=== PATIENT | female | born 1955 | race African-American/Black ===

== ENCOUNTER 2016-10-09 19:13 | Inpatient (IN) | payer OTHER ==
[~2016-10-09] VITALS: Ht 167.6 cm; Wt 128.9 kg
[~2016-10-09 19:13] MED LIST: AMLO10TA2 PO; AMLO5TAB2 PO; ATOR40TA59 PO; BENZ100C PO; CARV25TA PO; CARV25TA2 PO; CEFP200T PO; CLON0.2T PO; DOXY100T PO; FURO40TA4 PO; FURO80TA3 PO; GLIP10TA13 PO; HYDR-2869 PO; HYDR-971 PO; INSU100I13 SQ; INSU100I17 SQ; LEVO750T31 PO; LISI-334 PO; LISI40TA PO; METF-620 PO; METF100010 PO; METH-37 PO; OMEP40CA5 PO; OXYC-250 PO; PRED20TA PO; VENTOLIN HFA18 GM IH
[2016-10-09] MEDS ORDERED: FUROSEMIDE 40 MG/4 ML VIAL. IVP ONE (19:30)
[2016-10-09 19:36] LABS: BASO # 0.1 x10^3/uL (0.0-0.2); BASO % 1 % (0-3); EOS % 4 % (0-3); HEMATOCRIT 27.9 % (36.0-47.0); HEMOGLOBIN 9.2 g/dL (12.0-15.5); LYMPH # 1.1 x10^3/uL (1.0-4.8); LYMPH % 9 % (24-48); MEAN CORPUSCULAR HEMOGLOBIN 28 pg (25-35); MEAN CORPUSCULAR HGB CONC 33 g/dL (31-37); MEAN CORPUSCULAR VOLUME 86 fL (79-100); MONO % 7 % (0-9); NEUT % 80 % (31-73); PLATELET COUNT 327 x10^3/uL (140-400); RED BLOOD COUNT 3.23 x10^6/uL (3.50-5.40); RED CELL DISTRIBUTION WIDTH 17.7 % (11.5-14.5); WHITE BLOOD COUNT 12.2 x10^3/uL (4.0-11.0)
[2016-10-09] MEDS ORDERED: fentaNYL PF VIAL 100 MCG/2 ML VIAL IV PRN (19:45)
[2016-10-09 19:48] LABS: CALCIUM 9.2 mg/dL (8.5-10.1); CREATININE 1.8 mg/dL (0.6-1.0); POTASSIUM 4.1 mmol/L (3.5-5.1)
[2016-10-09 19:54] LABS: ALBUMIN 3.1 g/dL (3.4-5.0); ALBUMIN/GLOBULIN RATIO 0.6 (1.0-1.7); TOTAL BILIRUBIN 0.3 mg/dL (0.2-1.0); TOTAL PROTEIN 7.9 g/dL (6.4-8.2)
[2016-10-09] MEDS ORDERED: NITROGLYCERIN SUBLINGUAL 0.4 MG BOTTLE OF 25. SL PRN (20:00)
[2016-10-09 20:03] LABS: CKMB MASS 1.4 ng/mL (0.0-3.6)
[2016-10-09 20:36] LABS: BASE EXCESS COOX 4 mmol/L (-3-3); CARBON MONOXIDE 2.1 % (0.0-1.9); HCO3 COOX 30 mmol/L (21-28); METHEMOGLOBIN 0.2 % (0.0-1.9); OXYHEMOGLOBIN 90.3 %; PCO2 COOX 49 mmHg (35-46); PO2 COOX 67 mmHg (75-108); SAT O2 COOX 92 % (92-99); TOTAL HEMOGLOBIN 10.3 g/dL
[2016-10-09 20:38] LABS: FIO2 COOX 35
[2016-10-09] MEDS ORDERED: IPRATRPIUM/ALBUTEROL 0.5/2.5MG 3 ML NEBU. ONE (20:42)
[2016-10-09] MEDS ORDERED: IPRATRPIUM/ALBUTEROL 0.5/2.5MG 3 ML NEBU. NEB ONE (20:45)
[2016-10-09] MEDS ORDERED: methylPREDNISolone SOD SUCC PF 40 MG/ML VIAL. IV ONE (20:45)
[2016-10-09] MEDS ORDERED: METOPROLOL TARTRATE 5 MG/5 ML VIAL. IVP ONE (20:45)
--- NOTE | 2016-10-09 20:49 | PHYS DOC ---
Past Medical History Past Medical History: CHF, COPD, Diabetes-Type II, Hypertension Additional Past Medical Histor: insomnia Past Surgical History: Tonsillectomy, Other Additional Past Surgical Histo: R ARM FX, R LEG FX Additional Information: 0.5 ppd Alcohol Use: None Drug Use: None Adult General Chief Complaint Chief Complaint: SHORTNESS OF BREATH HPI HPI Patient is a 60 year old female brought from home by EMS with the complaint of shortness of air. The patient is really not able to contribute to history. EMS state that family members said that the patient has been retaining fluid. They believe she has a history of CHF. They state she has a "rescue inhaler", albuterol. Patient on initial evaluation was not really able to contribute to the history due to her dyspnea. PCP the patient does not recall the name, her doctor is new. She used to have but does not anymore. Review of Systems Review of Systems Review of systems was not able to be obtained because of the patient's clinical condition Current Medications Current Medications Current Medications Medications (Trade) Dose Ordered Sig/Rob Start Time Stop Time Status Last Admin Dose Admin Albuterol/ Ipratropium (Duoneb) 3 ml STK-MED ONCE 10/09/16 20:42 10/09/16 20:43 DC Fentanyl Citrate (Fentanyl 2ml Vial) 25 mcg PRN Q15MIN PRN 10/09/16 19:45 10/10/16 19:44 10/09/16 19:41 25 MCG Furosemide (Lasix) 40 mg 1X ONCE 10/09/16 19:30 10/09/16 19:31 DC 10/09/16 19:40 40 MG Methylprednisolone Sodium Succinate (SOLU-Medrol 40MG VIAL) 40 mg 1X ONCE 10/09/16 20:45 10/09/16 20:46 DC 10/09/16 20:57 40 MG Metoprolol Tartrate (Lopressor) 5 mg 1X ONCE 10/09/16 20:45 10/09/16 20:46 DC 10/09/16 21:00 5 MG Nitroglycerin (Nitrostat) 0.4 mg PRN Q5MIN PRN 10/09/16 20:00 10/09/16 20:03 0.4 MG Allergies Allergies Allergies Coded Allergies Type Severity Reaction Last Updated Verified No Known Drug Allergies 06/10/14 No Physical Exam Physical Exam Constitutional: Obese female, oxygen by face mask from EMS, dyspneic, answering one or 2 words, she is alert. HENT: Normocephalic, atraumatic, bilateral external ears normal, nose normal. [ ] Eyes: conjunctiva normal, no discharge. [] Neck: Normal range of motion, no stridor. JVD present. Cardiovascular:Heart rate regular rhythm, no murmur [] Lungs & Thorax: Decreased breath sounds throughout, poor inspiratory effort, no significant wheezing or rales heard Abdomen: Obese, no masses, no pulsatile mass, no bruit. Soft. Tenderness to palpation across the upper abdomen. Skin: Warm, dry, no erythema, no rash. [] Extremities: No tenderness, no cyanosis, no clubbing, ROM intact, no significant pitting edema Neurologic: Alert but not verbal due to dyspnea, normal motor function, normal sensory function, no focal deficits noted. [] Current Patient Data Vital Signs Vital Signs Date Time Temp Pulse Resp B/P (MAP) Pulse Ox O2 Delivery O2 Flow Rate FiO2 10/09/16 20:45 91 Nasal Cannula 4.0 10/09/16 20:03 85 189/85 10/09/16 19:41 17 10/09/16 19:15 99.2 99.2 Lab Values Laboratory Tests Test 10/09/16 19:20 10/09/16 19:23 White Blood Count 12.2 x10^3/uL (4.0-11.0) H Red Blood Count 3.23 x10^6/uL (3.50-5.40) L Hemoglobin 9.2 g/dL (12.0-15.5) L Hematocrit 27.9 % (36.0-47.0) L Mean Corpuscular Volume 86 fL (79-100) Mean Corpuscular Hemoglobin 28 pg (25-35) Mean Corpuscular Hemoglobin Concent 33 g/dL (31-37) Red Cell Distribution Width 17.7 % (11.5-14.5) H Platelet Count 327 x10^3/uL (140-400) Neutrophils (%) (Auto) 80 % (31-73) H Lymphocytes (%) (Auto) 9 % (24-48) L Monocytes (%) (Auto) 7 % (0-9) Eosinophils (%) (Auto) 4 % (0-3) H Basophils (%) (Auto) 1 % (0-3) Neutrophils # (Auto) 9.8 x10^3uL (1.8-7.7) H Lymphocytes # (Auto) 1.1 x10^3/uL (1.0-4.8) Monocytes # (Auto) 0.8 x10^3/uL (0.0-1.1) Eosinophils # (Auto) 0.4 x10^3/uL (0.0-0.7) Basophils # (Auto) 0.1 x10^3/uL (0.0-0.2) Sodium Level 142 mmol/L (136-145) Potassium Level 4.1 mmol/L (3.5-5.1) Chloride Level 104 mmol/L (98-107) Carbon Dioxide Level 32 mmol/L (21-32) Anion Gap 6 (6-14) Blood Urea Nitrogen 22 mg/dL (7-20) H Creatinine 1.8 mg/dL (0.6-1.0) H Estimated GFR (Cockcroft-Gault) 35.0 BUN/Creatinine Ratio 12 (6-20) Glucose Level 200 mg/dL (70-99) H Calcium Level 9.2 mg/dL (8.5-10.1) Total Bilirubin 0.3 mg/dL (0.2-1.0) Aspartate Amino Transferase (AST) 22 U/L (15-37) Alanine Aminotransferase (ALT) 18 U/L (14-59) Alkaline Phosphatase 194 U/L (46-116) H Creatine Kinase 245 U/L (26-192) H Creatine Kinase MB (Mass) 1.4 ng/mL (0.0-3.6) Creatine Kinase MB Relative Index 0.6 % (0-4) Troponin I Quantitative 0.039 ng/mL (0.000-0.055) LD-Vtn-U-Type Natriuretic Peptide 2409 pg/mL (0-124) H Total Protein 7.9 g/dL (6.4-8.2) Albumin 3.1 g/dL (3.4-5.0) L Albumin/Globulin Ratio 0.6 (1.0-1.7) L O2 Saturation 92 % (92-99) Arterial Blood pH 7.40 (7.35-7.45) Arterial Blood pCO2 at Patient Temp 49 mmHg (35-46) H Arterial Blood pO2 at Patient Temp 67 mmHg (75-108) L Arterial Blood HCO3 30 mmol/L (21-28) H Arterial Blood Base Excess 4 mmol/L (-3-3) H Oxyhemoglobin 90.3 % Methemoglobin 0.2 % (0.0-1.9) Carbon Monoxide, Quantitative 2.1 % (0.0-1.9) H FiO2 35 Laboratory Tests 10/09/16 19:20 Laboratory Tests 10/09/16 19:20 EKG EKG 12-lead EKG read by me. Sinus rhythm. Heart rate 88. There are no acute ST or T wave changes indicative of ischemia or infarction. No STEMI. 192 [] Radiology/Procedures Radiology/Procedures One view portable chest x-ray read by me. Heart size is borderline. Positive for interstitial pattern suggestive of CHF. No effusions. No infiltrates. [] Course & Med Decision Making Course & Med Decision Making Pertinent Labs and Imaging studies reviewed. (See chart for details) 60-year-old female who presents by EMS with dyspnea and unable to give much of a history. I was able to review the patient's previous record and saw that she has been admitted in the past for acute respiratory failure, I saw that she's had both COPD and CHF. Today she certainly has features of both of those. She does have JVD and appears to have pulmonary edema on chest x-ray. Patient was converted from oxygen by facemask to BiPAP on arrival to the ED. She tolerated that well. Patient was given IV Lasix, sublingual nitroglycerin for elevated blood pressure. She did not have much improvement in her blood pressure and I ordered a dose of Lopressor. She was given IV Solu-Medrol and a breathing treatment for COPD. Patient had complained of abdominal pain, and once her breathing was stabilized to bit, I ordered a CT scan of her abdomen and pelvis. She will be converted to nasal cannula for that to see how she tolerates it. I discussed this with respiratory therapist, she may need to be put back on BiPAP. She will keep an eye on that. ABG done on BiPAP at 35% after the patient had been here over an hour, pH 7.40, PCO2 48, PCO2 67. Troponin is mildly elevated. I will order serial troponins. I believe the patient's shortness of air is likely due to a combination of COPD and CHF. Her chest x-ray is consistent with CHF, BNP is elevated. Her lung sounds are somewhat diminished. She will be treated for both. I discussed the case with Dr. Damian, [facility]. He will admit the patient. I was in the patient to CVC because I feel like she may need to be put back on BiPAP and she needs to have her respiratory status monitored closely overnight. CT abdomen and pelvis showed a distended urinary bladder. ED nurse told me that the patient had urinated not long before the CT. Therefore, I am concerned about urinary retention. I ordered a Vazquez catheter. [] Dragon Disclaimer Dragon Disclaimer This electronic medical record was generated, in whole or in part, using a voice recognition dictation system. Departure Departure Impression: Primary Impression: Respiratory distress Additional Impressions: CHF (congestive heart failure) COPD exacerbation Disposition: ADMITTED INPATIENT Admitting Physician: Soumya Damian Condition: GUARDED Referrals: NO PCP (PCP) Problem Qualifiers CLEO CHI MD October 09, 2016 20:49
--- NOTE | 2016-10-09 21:20 | ACF ---
Admit Criteria Forms Admit Criteria Forms Admit Criteria Forms HEART FAILURE: COMMON COMPLICATIONS Clinical Indications for Inpatient Care (Place 'X' for any and all applicable criteria): Ongoing inpatient care may be indicated for heart failure with ANY ONE of the following (1)(2)(3)(4)(5): [ ]I. Ongoing need for care for primary condition requiring frequent therapy adjustments because of changes in cardiac function (eg, drug dosage changes for drugs that are renally metabolized) [ ]II. New-onset heart failure [ ]III. Heart failure with decreased urine output not responsive to attempts to optimize volume status [ ]IV. Acute cardiac ischemia causing or associated with failure [X ]V. Complications of heart failure, including ANY ONE of the following: [ ]a) Pericardial effusion [ ]b) Symptomatic pleural effusion [ ]c) O2 saturation <90% or PO2 < 60 mm Hg (8.0 kPa) on room air or require baseline supplemental O2 [ ]d) Tachypnea [X ]e) Dyspnea [ ]f) Syncope [ ]g) Change in mental status [ ]h) Acute renal insufficiency that is severe (reduction of more than 50% in estimated glomerular filtration rate from baseline) or progressive reduction of more than 25% in estimated glomerular filtration rate from baseline, with creatinine continuing to rise) [ ]i) Hemodynamic instability [ ]j) Anasarca [ ]k) Clinically significant metabolic abnormalities due to heart failure (eg, new-onset metabolic acidosis) Extended stay beyond goal length of stay for primary condition may be needed until ALL of the following are present(1)(3): [ ]a) Stable and effective diuretic regimen established (or patient on stable dialysis regimen if in chronic renal failure) [ ]b) Breathing comfortably at rest [ ]c) Saturation of arterial oxygen greater than 90% or at acceptable baseline [ ]d) Pulmonary edema absent or improved [ ]e) Hemodynamic stability [ ]f) Volume status acceptable on oral medication [ ]g) Peripheral or sacral edema absent or improved [ ]h) Renal function stable and manageable at a lower level of care [ ]i) Complications (eg, pleural effusion) resolved or manageable at a lower level of care [ ]j) Patient or caregiver has received written discharge instructions or educational material addressing activity level, diet, discharge medications, follow-up appointment, weight monitoring, and what to do if symptoms worsen The original [employer] content created by [employer] has been revised. The portions of the content which have been revised are identified through the use of italic text or in bold, and [facility] Akhtar has neither reviewed nor approved the modified material.All other unmodified content is copyright [facility] [employer]. Please see references footnoted in the original [facility] [employer] edition 2016 DIANE MORALES October 09, 2016 21:20
--- NOTE | 2016-10-09 21:37 | RAD ---
CT Abdomen and Pelvis without contrast History: Generalized abdominal pain Technique: Noncontrast CT imaging was performed of the abdomen and pelvis. Multiplanar images are reviewed. Exposure: One or more of the following individualized dose reduction techniques were utilized for this examination: 1. Automated exposure control 2. Adjustment of the mA and/or kV according to patient size 3. Use of iterative reconstruction technique. Comparison: None Findings: There is motion degradation. There is some atelectasis of the visualized lung bases, also areas of relative groundglass density.Accurate evaluation of abdominal visceral organs is limited without intravenous contrast. There is no obvious abnormality of the spleen, liver, or pancreas. There is mild bilateral renal pelviectasis. Accurate evaluation of bowel is limited without oral contrast. There is no significant free air, free fluid, bowel dilatation. Appendix caliber 0.8 cm is considered somewhat prominent although no significant adjacent inflammatory type change. There is moderate to severe distention of the urinary bladder. There is scattered atherosclerotic calcification of the abdominal aorta and iliac arteries. There may be 1.3 cm left adrenal nodule, somewhat difficult to characterize given motion. There are several small retroperitoneal nodes. There are some inguinal lymph nodes nodes bilaterally, on the left considered somewhat prominent up to 1.2 cm short axis dimension. There is degenerative disc disease L5-S1. Impression: 1. There is moderate to severe distention of urinary bladder. There is mild bilateral renal pelviectasis. 2. Appendix caliber is somewhat prominent 0.8 cm although no significant adjacent inflammatory time change, correlation with laboratory and clinical findings advised. 3. There is diffuse anasarca. There is likely some groundglass density of the lung parenchyma which could be due to edema, also atelectasis. 4. There are some nonspecific inguinal lymph nodes considered somewhat prominent on the left. Electronically signed by: Christopher Carlton MD (10/09/2016 9:34 PM)
[2016-10-09 22:14] VITALS: BP 157/65
[2016-10-09 23:25] VITALS: BP 178/70
[2016-10-10] MEDS ORDERED: VANCOMYCIN 1 GM in IV NORMAL SALINE 250ML 250 ML IV SCH ×2
[2016-10-10] MEDS ORDERED: ACETAMINOPHEN 325 MG TABLET. PO PRN
[2016-10-10 00:52] LABS: BILIRUBIN,URINE NEGATIVE (NEG); GLUCOSE,URINE NEGATIVE (NEG); NITRITE,URINE NEGATIVE (NEG); PROTEIN,URINE >=300 mg/dL (NEG-TRACE); UROBILINOGEN,URINE 0.2 mg/dL (0.2 mg/dL)
[2016-10-10] MEDS ORDERED: VANCOMYCIN 2 GM in IV NORMAL SALINE 500ML BAG 500 ML IV ONE (01:00)
[2016-10-10 01:12] LABS: BACTERIA,URINE FEW /HPF (0-FEW); RBC,URINE OCC /HPF (0-2); SQUAMOUS EPITHELIAL CELL,UR FEW /LPF
[2016-10-10] MEDS: VANCOMYCIN PER PHARMACY MC PRN ×2 (02:46→09:57)
[2016-10-10 03:09] VITALS: BP 165/73
[2016-10-10] MEDS: PIPERACILLIN/TAZOBACTAM 3.375 GM in IV NORMAL SALINE 50ML 50 ML IV SCH ×4 (04:18→17:45)
--- NOTE | 2016-10-10 07:07 | EKG ---
[facility] [address] [place] [address] Test Date: 2016-10-09 Test Time: 19:27:51 Pat Name: ZBIGNIEW RECINOS Department: Room: 260 1 Gender: F Resort Keeper: : 1955 Requested By: CLEO CHI Order Number: [id number] Reading MD: Angie Edwards Measurements Intervals [place] Rate: 88 P: 46 [place]: 144 QRS: 19 QRSD: 90 T: 116 QT: 392 QTc: 478 Interpretive Statements SINUS RHYTHM ATRIAL PREMATURE COMPLEX(ES) QRS(T) CONTOUR ABNORMALITY CONSISTENT WITH ANTEROSEPTAL INFARCT PROBABLY OLD T ABNORMALITY IN HIGH LATERAL LEADS Electronically Signed On 10-10-2016 15:52:05 CDT by Angie Edwards
[2016-10-10 07:40] VITALS: BP 147/69
--- NOTE | 2016-10-10 07:50 | PDOC ---
PULMONARY PROGRESS NOTES Vitals Vital Signs Date Time Temp Pulse Resp B/P (MAP) Pulse Ox O2 Delivery O2 Flow Rate FiO2 10/10/16 04:15 92 BiPAP/CPAP 10/10/16 03:09 100.6 94 24 165/73 (103) 100.6 10/09/16 21:30 4.0 General: Alert, Oriented X4, No acute distress Lungs: Clear, Other Cardiovascular: S1, S2 Abdomen: Soft, Non-tender Extremities: No Edema Labs Laboratory Tests Test 10/09/16 19:20 10/09/16 19:23 10/10/16 00:01 10/10/16 00:05 White Blood Count 12.2 x10^3/uL (4.0-11.0) Red Blood Count 3.23 x10^6/uL (3.50-5.40) Hemoglobin 9.2 g/dL (12.0-15.5) Hematocrit 27.9 % (36.0-47.0) Mean Corpuscular Volume 86 fL (79-100) Mean Corpuscular Hemoglobin 28 pg (25-35) Mean Corpuscular Hemoglobin Concent 33 g/dL (31-37) Red Cell Distribution Width 17.7 % (11.5-14.5) Platelet Count 327 x10^3/uL (140-400) Neutrophils (%) (Auto) 80 % (31-73) Lymphocytes (%) (Auto) 9 % (24-48) Monocytes (%) (Auto) 7 % (0-9) Eosinophils (%) (Auto) 4 % (0-3) Basophils (%) (Auto) 1 % (0-3) Neutrophils # (Auto) 9.8 x10^3uL (1.8-7.7) Lymphocytes # (Auto) 1.1 x10^3/uL (1.0-4.8) Monocytes # (Auto) 0.8 x10^3/uL (0.0-1.1) Eosinophils # (Auto) 0.4 x10^3/uL (0.0-0.7) Basophils # (Auto) 0.1 x10^3/uL (0.0-0.2) Sodium Level 142 mmol/L (136-145) Potassium Level 4.1 mmol/L (3.5-5.1) Chloride Level 104 mmol/L (98-107) Carbon Dioxide Level 32 mmol/L (21-32) Anion Gap 6 (6-14) Blood Urea Nitrogen 22 mg/dL (7-20) Creatinine 1.8 mg/dL (0.6-1.0) Estimated GFR (Cockcroft-Gault) 35.0 BUN/Creatinine Ratio 12 (6-20) Glucose Level 200 mg/dL (70-99) Calcium Level 9.2 mg/dL (8.5-10.1) Total Bilirubin 0.3 mg/dL (0.2-1.0) Aspartate Amino Transf (AST/SGOT) 22 U/L (15-37) Alanine Aminotransferase (ALT/SGPT) 18 U/L (14-59) Alkaline Phosphatase 194 U/L (46-116) Creatine Kinase 245 U/L (26-192) Creatine Kinase MB (Mass) 1.4 ng/mL (0.0-3.6) Creatine Kinase MB Relative Index 0.6 % (0-4) Troponin I Quantitative 0.039 ng/mL (0.000-0.055) RY-Lmh-Q-Type Natriuretic Peptide 2409 pg/mL (0-124) Total Protein 7.9 g/dL (6.4-8.2) Albumin 3.1 g/dL (3.4-5.0) Albumin/Globulin Ratio 0.6 (1.0-1.7) O2 Saturation 92 % (92-99) Arterial Blood pH 7.40 (7.35-7.45) Arterial Blood pCO2 at Patient Temp 49 mmHg (35-46) Arterial Blood pO2 at Patient Temp 67 mmHg (75-108) Arterial Blood HCO3 30 mmol/L (21-28) Arterial Blood Base Excess 4 mmol/L (-3-3) Oxyhemoglobin 90.3 % Methemoglobin 0.2 % (0.0-1.9) Carbon Monoxide, Quantitative 2.1 % (0.0-1.9) FiO2 35 Lactic Acid Level 0.8 mmol/L (0.4-2.0) Procalcitonin < 0.10 ng/mL (0.00-0.10) Urine Collection Type U cath Urine Color Yellow Urine Clarity Clear Urine pH 5.0 Urine Specific [place] 1.010 Urine Protein >=300 mg/dL (NEG-TRACE) Urine Glucose (UA) Negative mg/dL (NEG) Urine Ketones (Stick) Negative mg/dL (NEG) Urine Blood Negative (NEG) Urine Nitrite Negative (NEG) Urine Bilirubin Negative (NEG) Urine Urobilinogen Dipstick 0.2 mg/dL (0.2 mg/dL) Urine Leukocyte Esterase Negative (NEG) Urine RBC Occ /HPF (0-2) Urine WBC 1-4 /HPF (0-4) Urine Squamous Epithelial Cells Few /LPF Urine Bacteria Few /HPF (0-FEW) Urine Hyaline Casts Few /HPF Urine Mucus Slight /LPF Test 10/10/16 03:00 Troponin I Quantitative 0.043 ng/mL (0.000-0.055) Laboratory Tests Test 10/09/16 19:20 10/09/16 19:23 10/10/16 00:01 10/10/16 00:05 White Blood Count 12.2 x10^3/uL (4.0-11.0) Red Blood Count 3.23 x10^6/uL (3.50-5.40) Hemoglobin 9.2 g/dL (12.0-15.5) Hematocrit 27.9 % (36.0-47.0) Mean Corpuscular Volume 86 fL (79-100) Mean Corpuscular Hemoglobin 28 pg (25-35) Mean Corpuscular Hemoglobin Concent 33 g/dL (31-37) Red Cell Distribution Width 17.7 % (11.5-14.5) Platelet Count 327 x10^3/uL (140-400) Neutrophils (%) (Auto) 80 % (31-73) Lymphocytes (%) (Auto) 9 % (24-48) Monocytes (%) (Auto) 7 % (0-9) Eosinophils (%) (Auto) 4 % (0-3) Basophils (%) (Auto) 1 % (0-3) Neutrophils # (Auto) 9.8 x10^3uL (1.8-7.7) Lymphocytes # (Auto) 1.1 x10^3/uL (1.0-4.8) Monocytes # (Auto) 0.8 x10^3/uL (0.0-1.1) Eosinophils # (Auto) 0.4 x10^3/uL (0.0-0.7) Basophils # (Auto) 0.1 x10^3/uL (0.0-0.2) Sodium Level 142 mmol/L (136-145) Potassium Level 4.1 mmol/L (3.5-5.1) Chloride Level 104 mmol/L (98-107) Carbon Dioxide Level 32 mmol/L (21-32) Anion Gap 6 (6-14) Blood Urea Nitrogen 22 mg/dL (7-20) Creatinine 1.8 mg/dL (0.6-1.0) Estimated GFR (Cockcroft-Gault) 35.0 BUN/Creatinine Ratio 12 (6-20) Glucose Level 200 mg/dL (70-99) Calcium Level 9.2 mg/dL (8.5-10.1) Total Bilirubin 0.3 mg/dL (0.2-1.0) Aspartate Amino Transf (AST/SGOT) 22 U/L (15-37) Alanine Aminotransferase (ALT/SGPT) 18 U/L (14-59) Alkaline Phosphatase 194 U/L (46-116) Creatine Kinase 245 U/L (26-192) Creatine Kinase MB (Mass) 1.4 ng/mL (0.0-3.6) Creatine Kinase MB Relative Index 0.6 % (0-4) Troponin I Quantitative 0.039 ng/mL (0.000-0.055) FF-Mra-W-Type Natriuretic Peptide 2409 pg/mL (0-124) Total Protein 7.9 g/dL (6.4-8.2) Albumin 3.1 g/dL (3.4-5.0) Albumin/Globulin Ratio 0.6 (1.0-1.7) O2 Saturation 92 % (92-99) Arterial Blood pH 7.40 (7.35-7.45) Arterial Blood pCO2 at Patient Temp 49 mmHg (35-46) Arterial Blood pO2 at Patient Temp 67 mmHg (75-108) Arterial Blood HCO3 30 mmol/L (21-28) Arterial Blood Base Excess 4 mmol/L (-3-3) Oxyhemoglobin 90.3 % Methemoglobin 0.2 % (0.0-1.9) Carbon Monoxide, Quantitative 2.1 % (0.0-1.9) FiO2 35 Lactic Acid Level 0.8 mmol/L (0.4-2.0) Procalcitonin < 0.10 ng/mL (0.00-0.10) Urine Collection Type U cath Urine Color Yellow Urine Clarity Clear Urine pH 5.0 Urine Specific [place] 1.010 Urine Protein >=300 mg/dL (NEG-TRACE) Urine Glucose (UA) Negative mg/dL (NEG) Urine Ketones (Stick) Negative mg/dL (NEG) Urine Blood Negative (NEG) Urine Nitrite Negative (NEG) Urine Bilirubin Negative (NEG) Urine Urobilinogen Dipstick 0.2 mg/dL (0.2 mg/dL) Urine Leukocyte Esterase Negative (NEG) Urine RBC Occ /HPF (0-2) Urine WBC 1-4 /HPF (0-4) Urine Squamous Epithelial Cells Few /LPF Urine Bacteria Few /HPF (0-FEW) Urine Hyaline Casts Few /HPF Urine Mucus Slight /LPF Test 10/10/16 03:00 Troponin I Quantitative 0.043 ng/mL (0.000-0.055) Medications Active Scripts Medications Dose Route/Sig Max Daily Dose Days Date Category [place] 5-325 Tablet (Acetaminophen/Hydrocodone Bitart) 1 Each Tablet 1-2 Tab PO Q4-6HRS PRN 01/30/16 Rx Tessalon Perle (Benzonatate) 100 Mg Capsule 1 Cap PO TID PRN 01/30/16 Rx Levaquin (Levofloxacin) 750 Mg Tablet 1 Tab PO DAILY 01/30/16 Rx Doxycycline Hyclate 100 Mg Tablet 100 Mg PO BID 10/08/15 Rx Furosemide 80 Mg Tablet 80 Mg PO DAILY 10/08/15 Rx Amlodipine Besylate 10 Mg Tablet 10 Mg PO DAILY 09/27/15 Rx Robaxin (Methocarbamol) 500 Mg Tablet 500 Mg PO HS PRN 09/15/15 Rx Novolog Flexpen (Insulin Aspart) 100 Unit/1 Ml Insuln.pen 10 Units SQ TIDAC 05/27/15 Rx Hydralazine Hcl 50 Mg Tablet 100 Mg PO Q8HRS 05/27/15 Rx Furosemide 40 Mg Tablet 40 Mg PO DAILY 05/27/15 Rx Prednisone 20 Mg Tablet 40 Mg PO DAILY 05/27/15 Rx Atorvastatin Calcium 40 Mg Tablet 1 Tab PO DAILY 05/23/15 Reported Lisinopril 40 Mg Tablet 1 Tab PO DAILY 05/23/15 Reported Omeprazole 40 Mg Capsule.dr 1 Cap PO DAILY 05/23/15 Reported Ventolin Hfa Inhaler (Albuterol Sulfate) 18 Gm Hfa.aer.ad 2 Puff IH PRN Q4-6HRS 05/23/15 Reported Percocet 10-325 Mg Tablet (Oxycodone/Acetaminophen) 1 Each Tablet 1 Tab PO Q4-6HRS 06/10/14 Reported Lantus Solostar (Insulin Glargine,Hum.rec.anlog) 100 Unit/1 Ml Insuln.pen 30 Unit SQ BID 06/10/14 Reported Glipizide 10 Mg Tablet 1 Tab PO BIDAC 06/10/14 Reported Clonidine Hcl 0.2 Mg Tablet 1 Tab PO BID 06/10/14 Reported Coreg (Carvedilol) 25 Mg Tablet 1 Tab PO [id number] 06/10/14 Reported Impression . FULL NOTE DICTATED ACUTER RESP FAILURE SEC TO PNEUMONIA AND HEART FAILURE DIMPLE ACOSTA MD October 10, 2016 07:50
--- NOTE | 2016-10-10 07:57 | RAD ---
EXAM: Chest, single view. HISTORY: Shortness of breath. COMPARISON: 01/29/2016. FINDINGS: A frontal view of the chest is obtained. There is diffuse infrahilar predominant interstitial infiltrate. There is no consolidation, effusion or pneumothorax. There is mild enlargement of the cardiac silhouette. IMPRESSION: 1. Diffuse infrahilar predominant interstitial infiltrate likely due to pulmonary congestion. 2. Mild enlargement of the cardiac silhouette.
[2016-10-10] MEDS ORDERED: ENOXAPARIN 30 MG/0.3 ML SYRINGE. SQ SCH (08:00)
[2016-10-10] MEDS ORDERED: ENOXAPARIN 40 MG/0.4 ML SYRINGE. SQ SCH (08:00)
--- NOTE | 2016-10-10 08:34 | CONS ---
DATE OF CONSULTATION: 10/10/2016 ATTENDING PHYSICIAN: Lizzie Kuhn M.D. REASON FOR CONSULTATION: The patient is seen in pulmonary consultation at the request of Dr. Kuhn for increasing shortness of breath, BiPAP utilizing noninvasive ventilation with BiPAP. HISTORY OF PRESENT ILLNESS: The patient is a 60-year-old female with a history of COPD, CHF, continued tobacco use, presented with increasing shortness of breath over the last several days, increasing lower extremity edema and paroxysmal nocturnal dyspnea. No fever, chills. Some chest pain. She was seen in the Emergency Room, had an arterial blood gas revealing a pH of 7.40, PaCO2 of 49, pO2 of 67. She had increased work of breathing. She was placed on BiPAP. She was admitted to the Cardiovascular telemetry unit. So far, troponins are negative. BNP was elevated. Chest x-ray revealed some increased markings compatible with CHF. PAST MEDICAL HISTORY: COPD, obstructive sleep apnea, type 2 diabetes, hypertension, chronic heart failure. PAST SURGICAL HISTORY: Status post right upper extremity surgery. CURRENT MEDICATIONS: List was reviewed. Please see the MRAD. ALLERGIES: No known drug allergies. REVIEW OF SYSTEMS: As indicated above, otherwise, a 10-point system was reviewed and negative. SOCIAL HISTORY: She continues to smoke. Denies any alcohol intake. PHYSICAL EXAMINATION: GENERAL: Morbid obese individual with a BMI of 45. VITAL SIGNS: Stable. Temperature was 100.6. O2 saturation greater than 92%. HEENT: Eyes, the sclerae were nonicteric. NECK: Jugular venous distention was not elevated. No lymphadenopathy. CHEST: Full expansion. LUNGS: Crackles in the bases. No wheezes. CARDIOVASCULAR: Regular rate and rhythm with S1, S2, no S3. ABDOMEN: Soft, obese. EXTREMITIES: No clubbing or cyanosis, some edema. IMAGING: CT abdomen and pelvis was reported to show some anasarca along with ground glass densities in the lung parenchyma on the bases. IMPRESSION: 1. Acute respiratory failure, multifactorial secondary to acute on chronic heart failure and possible pneumonia. 2. Possible pneumonia. Cover for both gram-positive and gram-negative organisms. 3. Leukocytosis. 4. Fever. 5. Possible sepsis. 6. Hypertension, uncontrolled. PLAN: 1. Continue current broad-spectrum antibiotics. 2. Diurese. 3. Continue p.r.n. BiPAP. 4. Follow repeat chest x-ray in the a.m. I do appreciate the privilege in participating in the patient's care. DIMPLE ACOSTA MD DR: JUDI/derik JOB#: [id number] / [id number]
[2016-10-10] MEDS: FUROSEMIDE 40 MG/4 ML VIAL. IVP SCH (09:45)
[2016-10-10] MEDS: ENOXAPARIN 40 MG/0.4 ML SYRINGE. SQ SCH ×2 (10:00→21:58)
[2016-10-10 10:16] VITALS: BP 159/68
--- NOTE | 2016-10-10 10:53 | PDOC2 ---
CONSULT Date of Consult Date of Consult DATE: 10/10/16 TIME: 10:53 Reason for Consult Reason for Consult: Congestive heart failure Referring Physician Referring Physician: Dr. Damian Identification/Chief Complaint Chief Complaint Shortness of breath Source Source: Chart review, Patient History of Present Illness Reason for Visit: 60-year-old female was brought by EMS for progressive shortness of breath. She was found to be hypoxic and placed on BiPAP by pulmonary team. She is a poor historian and no significant history can be obtained from her at this time. Per ED notes, there was no history of chest pain or syncope. Past Medical History Cardiovascular: CAD, CHF, HTN, Hyperlipidemia Pulmonary: COPD Heme/Onc: Anemia NOS Psych: Anxiety Musculoskeletal: Osteoarthritis Endocrine: Other Past Surgical History Past Surgical History: Tonsillectomy, Other Family History Family History: Hypertension Social History ALCOHOL: none Current Problem List Problem List Problems Medical Problems: (1) CHF (congestive heart failure) Status: Acute (2) COPD exacerbation Status: Acute (3) Respiratory distress Status: Acute Current Medications Current Medications Current Medications Furosemide (Lasix) 40 mg 1X ONCE IVP Last administered on 10/09/16 19:40; Start 10/09/16 at 19:30; Stop 10/09/16 at 19:31; Status DC Fentanyl Citrate (Fentanyl 2ml Vial) 25 mcg PRN Q15MIN PRN IV PAIN GREATER THAN 3/10 Last administered on 10/09/16 19:41; Start 10/09/16 at 19:45; Stop at 23:47; Status DC Nitroglycerin (Nitrostat) 0.4 mg PRN Q5MIN PRN SL CHEST PAIN Last administered on 10/09/16 20:03; Start 10/09/16 at 20:00 Methylprednisolone Sodium Succinate (SOLU-Medrol 40MG VIAL) 40 mg 1X ONCE IV Last administered on 10/09/16 20:57; Start 10/09/16 at 20:45; Stop 10/09/16 at 20:46; Status DC Albuterol/ Ipratropium (Duoneb) 3 ml 1X ONCE NEB Last administered on 20:48; Start 10/09/16 at 20:45; Stop 10/09/16 at 20:46; Status DC Metoprolol Tartrate (Lopressor) 5 mg 1X ONCE IVP Last administered on 21:00; Start 10/09/16 at 20:45; Stop 10/09/16 at 20:46; Status DC Albuterol/ Ipratropium (Duoneb) 3 ml STK-MED ONCE .ROUTE ; Start 10/09/16 at 20: 42; Stop 10/09/16 at 20:43; Status DC Acetaminophen (Tylenol) 650 mg PRN Q6HRS PRN PO MILD PAIN / TEMP Last administered on 10/10/16 01:13; Start 10/10/16 at 00:00 Piperacillin Sod/ Tazobactam Sod 3.375 gm/Sodium Chloride 50 ml @ 100 mls/hr Q6HRS IV Last administered on 10/10/16 04:18; Start 10/10/16 at 00:30 Vancomycin HCl 1 gm/Sodium Chloride 250 ml @ 250 mls/hr Q12H IV ; Start at 00:00; Status UNV Vancomycin HCl (Vanco Per Pharmacy) 1 each PRN DAILY PRN MC SEE COMMENTS Last administered on 10/10/16 09:57; Start 10/10/16 at 00:15 Vancomycin HCl 2 gm/Sodium Chloride 500 ml @ 250 mls/hr 1X ONCE IV Last administered on 10/10/16 01:13; Start 10/10/16 at 01:00; Stop 10/10/16 at 02:59 ; Status DC Vancomycin HCl 2 gm/Sodium Chloride 500 ml @ 250 mls/hr Q24H IV Last administered on 10/10/16 02:50; Start 10/11/16 at 01:00 Vancomycin HCl 1 each 1X ONCE MC ; Start 10/12/16 at 00:30; Stop 10/12/16 at 00 :31 Furosemide (Lasix) 40 mg DAILY IVP Last administered on 10/10/16 09:45; Start 10/10/16 at 09:00 Enoxaparin Sodium (Lovenox 30mg Syringe) 30 mg Q24H SQ ; Start 10/10/16 at 08:00 ; Stop 10/10/16 at 08:00; Status DC Enoxaparin Sodium (Lovenox 40mg Syringe) 40 mg Q24H SQ Last administered on 09:46; Start 10/10/16 at 08:00; Stop 10/10/16 at 09:46; Status DC Enoxaparin Sodium (Lovenox 40mg Syringe) 40 mg Q12H SQ ; Start 10/10/16 at 10:00 Active Scripts Active [place] 5-325 Tablet (Acetaminophen/Hydrocodone Bitart) 1 Each Tablet 1-2 Tab PO Q4-6HRS PRN Tessalon Perle (Benzonatate) 100 Mg Capsule 1 Cap PO TID PRN Levaquin (Levofloxacin) 750 Mg Tablet 1 Tab PO DAILY Doxycycline Hyclate 100 Mg Tablet 100 Mg PO BID Furosemide 80 Mg Tablet 80 Mg PO DAILY Amlodipine Besylate 10 Mg Tablet 10 Mg PO DAILY Robaxin (Methocarbamol) 500 Mg Tablet 500 Mg PO HS PRN Novolog Flexpen (Insulin Aspart) 100 Unit/1 Ml Insuln.pen 10 Units SQ TIDAC Hydralazine Hcl 50 Mg Tablet 100 Mg PO Q8HRS Furosemide 40 Mg Tablet 40 Mg PO DAILY Prednisone 20 Mg Tablet 40 Mg PO DAILY Reported Atorvastatin Calcium 40 Mg Tablet 1 Tab PO DAILY Lisinopril 40 Mg Tablet 1 Tab PO DAILY Omeprazole 40 Mg Capsule.dr 1 Cap PO DAILY Ventolin Hfa Inhaler (Albuterol Sulfate) 18 Gm Hfa.aer.ad 2 Puff IH PRN Q4-6HRS Percocet 10-325 Mg Tablet (Oxycodone/Acetaminophen) 1 Each Tablet 1 Tab PO Q4- 6HRS Lantus Solostar (Insulin Glargine,Hum.rec.anlog) 100 Unit/1 Ml Insuln.pen 30 Unit SQ BID Glipizide 10 Mg Tablet 1 Tab PO BIDAC Clonidine Hcl 0.2 Mg Tablet 1 Tab PO BID Coreg (Carvedilol) 25 Mg Tablet 1 Tab PO [id number] Allergies Allergies: Coded Allergies: No Known Drug Allergies (Unverified , 06/10/14) ROS Review of System Cannot be obtained Physical Exam General: moderate distress, Other (on BiPAP) HEENT: Atraumatic, PERRLA Lungs: Other (bilateral scattered crepitations) Heart: Regular rate, No murmurs Abdomen: Soft, No tenderness Extremities: Other (trace pedal edema) Vitals VITALS Vital Signs Date Time Temp Pulse Resp B/P (MAP) Pulse Ox O2 Delivery O2 Flow Rate FiO2 10/10/16 10:16 98.5 85 23 159/68 (98) 98 Venturi Mask 10.0 98.5 Labs Labs Laboratory Tests Test 10/09/16 19:20 10/09/16 19:23 10/10/16 00:01 10/10/16 00:05 White Blood Count 12.2 x10^3/uL (4.0-11.0) Red Blood Count 3.23 x10^6/uL (3.50-5.40) Hemoglobin 9.2 g/dL (12.0-15.5) Hematocrit 27.9 % (36.0-47.0) Mean Corpuscular Volume 86 fL (79-100) Mean Corpuscular Hemoglobin 28 pg (25-35) Mean Corpuscular Hemoglobin Concent 33 g/dL (31-37) Red Cell Distribution Width 17.7 % (11.5-14.5) Platelet Count 327 x10^3/uL (140-400) Neutrophils (%) (Auto) 80 % (31-73) Lymphocytes (%) (Auto) 9 % (24-48) Monocytes (%) (Auto) 7 % (0-9) Eosinophils (%) (Auto) 4 % (0-3) Basophils (%) (Auto) 1 % (0-3) Neutrophils # (Auto) 9.8 x10^3uL (1.8-7.7) Lymphocytes # (Auto) 1.1 x10^3/uL (1.0-4.8) Monocytes # (Auto) 0.8 x10^3/uL (0.0-1.1) Eosinophils # (Auto) 0.4 x10^3/uL (0.0-0.7) Basophils # (Auto) 0.1 x10^3/uL (0.0-0.2) Sodium Level 142 mmol/L (136-145) Potassium Level 4.1 mmol/L (3.5-5.1) Chloride Level 104 mmol/L (98-107) Carbon Dioxide Level 32 mmol/L (21-32) Anion Gap 6 (6-14) Blood Urea Nitrogen 22 mg/dL (7-20) Creatinine 1.8 mg/dL (0.6-1.0) Estimated GFR (Cockcroft-Gault) 35.0 BUN/Creatinine Ratio 12 (6-20) Glucose Level 200 mg/dL (70-99) Calcium Level 9.2 mg/dL (8.5-10.1) Total Bilirubin 0.3 mg/dL (0.2-1.0) Aspartate Amino Transf (AST/SGOT) 22 U/L (15-37) Alanine Aminotransferase (ALT/SGPT) 18 U/L (14-59) Alkaline Phosphatase 194 U/L (46-116) Creatine Kinase 245 U/L (26-192) Creatine Kinase MB (Mass) 1.4 ng/mL (0.0-3.6) Creatine Kinase MB Relative Index 0.6 % (0-4) Troponin I Quantitative 0.039 ng/mL (0.000-0.055) KR-Kez-B-Type Natriuretic Peptide 2409 pg/mL (0-124) Total Protein 7.9 g/dL (6.4-8.2) Albumin 3.1 g/dL (3.4-5.0) Albumin/Globulin Ratio 0.6 (1.0-1.7) O2 Saturation 92 % (92-99) Arterial Blood pH 7.40 (7.35-7.45) Arterial Blood pCO2 at Patient Temp 49 mmHg (35-46) Arterial Blood pO2 at Patient Temp 67 mmHg (75-108) Arterial Blood HCO3 30 mmol/L (21-28) Arterial Blood Base Excess 4 mmol/L (-3-3) Oxyhemoglobin 90.3 % Methemoglobin 0.2 % (0.0-1.9) Carbon Monoxide, Quantitative 2.1 % (0.0-1.9) FiO2 35 Lactic Acid Level 0.8 mmol/L (0.4-2.0) Procalcitonin < 0.10 ng/mL (0.00-0.10) Urine Collection Type U cath Urine Color Yellow Urine Clarity Clear Urine pH 5.0 Urine Specific [place] 1.010 Urine Protein >=300 mg/dL (NEG-TRACE) Urine Glucose (UA) Negative mg/dL (NEG) Urine Ketones (Stick) Negative mg/dL (NEG) Urine Blood Negative (NEG) Urine Nitrite Negative (NEG) Urine Bilirubin Negative (NEG) Urine Urobilinogen Dipstick 0.2 mg/dL (0.2 mg/dL) Urine Leukocyte Esterase Negative (NEG) Urine RBC Occ /HPF (0-2) Urine WBC 1-4 /HPF (0-4) Urine Squamous Epithelial Cells Few /LPF Urine Bacteria Few /HPF (0-FEW) Urine Hyaline Casts Few /HPF Urine Mucus Slight /LPF Test 10/10/16 03:00 10/10/16 07:45 10/10/16 08:55 Troponin I Quantitative 0.043 ng/mL (0.000-0.055) 0.033 ng/mL (0.000-0.055) Glucose (Fingerstick) 217 mg/dL (70-99) Laboratory Tests Test 10/09/16 19:20 10/09/16 19:23 10/10/16 00:01 10/10/16 00:05 White Blood Count 12.2 x10^3/uL (4.0-11.0) Red Blood Count 3.23 x10^6/uL (3.50-5.40) Hemoglobin 9.2 g/dL (12.0-15.5) Hematocrit 27.9 % (36.0-47.0) Mean Corpuscular Volume 86 fL (79-100) Mean Corpuscular Hemoglobin 28 pg (25-35) Mean Corpuscular Hemoglobin Concent 33 g/dL (31-37) Red Cell Distribution Width 17.7 % (11.5-14.5) Platelet Count 327 x10^3/uL (140-400) Neutrophils (%) (Auto) 80 % (31-73) Lymphocytes (%) (Auto) 9 % (24-48) Monocytes (%) (Auto) 7 % (0-9) Eosinophils (%) (Auto) 4 % (0-3) Basophils (%) (Auto) 1 % (0-3) Neutrophils # (Auto) 9.8 x10^3uL (1.8-7.7) Lymphocytes # (Auto) 1.1 x10^3/uL (1.0-4.8) Monocytes # (Auto) 0.8 x10^3/uL (0.0-1.1) Eosinophils # (Auto) 0.4 x10^3/uL (0.0-0.7) Basophils # (Auto) 0.1 x10^3/uL (0.0-0.2) Sodium Level 142 mmol/L (136-145) Potassium Level 4.1 mmol/L (3.5-5.1) Chloride Level 104 mmol/L (98-107) Carbon Dioxide Level 32 mmol/L (21-32) Anion Gap 6 (6-14) Blood Urea Nitrogen 22 mg/dL (7-20) Creatinine 1.8 mg/dL (0.6-1.0) Estimated GFR (Cockcroft-Gault) 35.0 BUN/Creatinine Ratio 12 (6-20) Glucose Level 200 mg/dL (70-99) Calcium Level 9.2 mg/dL (8.5-10.1) Total Bilirubin 0.3 mg/dL (0.2-1.0) Aspartate Amino Transf (AST/SGOT) 22 U/L (15-37) Alanine Aminotransferase (ALT/SGPT) 18 U/L (14-59) Alkaline Phosphatase 194 U/L (46-116) Creatine Kinase 245 U/L (26-192) Creatine Kinase MB (Mass) 1.4 ng/mL (0.0-3.6) Creatine Kinase MB Relative Index 0.6 % (0-4) Troponin I Quantitative 0.039 ng/mL (0.000-0.055) LN-Ccu-B-Type Natriuretic Peptide 2409 pg/mL (0-124) Total Protein 7.9 g/dL (6.4-8.2) Albumin 3.1 g/dL (3.4-5.0) Albumin/Globulin Ratio 0.6 (1.0-1.7) O2 Saturation 92 % (92-99) Arterial Blood pH 7.40 (7.35-7.45) Arterial Blood pCO2 at Patient Temp 49 mmHg (35-46) Arterial Blood pO2 at Patient Temp 67 mmHg (75-108) Arterial Blood HCO3 30 mmol/L (21-28) Arterial Blood Base Excess 4 mmol/L (-3-3) Oxyhemoglobin 90.3 % Methemoglobin 0.2 % (0.0-1.9) Carbon Monoxide, Quantitative 2.1 % (0.0-1.9) FiO2 35 Lactic Acid Level 0.8 mmol/L (0.4-2.0) Procalcitonin < 0.10 ng/mL (0.00-0.10) Urine Collection Type U cath Urine Color Yellow Urine Clarity Clear Urine pH 5.0 Urine Specific [place] 1.010 Urine Protein >=300 mg/dL (NEG-TRACE) Urine Glucose (UA) Negative mg/dL (NEG) Urine Ketones (Stick) Negative mg/dL (NEG) Urine Blood Negative (NEG) Urine Nitrite Negative (NEG) Urine Bilirubin Negative (NEG) Urine Urobilinogen Dipstick 0.2 mg/dL (0.2 mg/dL) Urine Leukocyte Esterase Negative (NEG) Urine RBC Occ /HPF (0-2) Urine WBC 1-4 /HPF (0-4) Urine Squamous Epithelial Cells Few /LPF Urine Bacteria Few /HPF (0-FEW) Urine Hyaline Casts Few /HPF Urine Mucus Slight /LPF Test 10/10/16 03:00 10/10/16 07:45 10/10/16 08:55 Troponin I Quantitative 0.043 ng/mL (0.000-0.055) 0.033 ng/mL (0.000-0.055) Glucose (Fingerstick) 217 mg/dL (70-99) Assessment/Plan Assessment/Plan 1. Acute hypoxic respiratory failure: Secondary to combination of acute on chronic diastolic heart failure, acute COPD exacerbation and pneumonia. Continue diuresis with Lasix. 2-D echo in September 2015 showed LVEF 55-60%. We will repeat 2-D echo to assess left ventricle systolic function. Cardiac catheterization in September 2015 showed nonobstructive coronary artery disease. 2. Pneumonia and acute COPD exacerbation: Currently on BiPAP. Continue intravenous antibiotics. Pulmonary team following. 3. Accelerated hypertension: Resume home medications and titrate for better control. 4. Hyperlipidemia: Statins 5. Diabetes mellitus: Treat per IM Thank you for your consultation SHI VALVERDE MD October 10, 2016 10:53
[2016-10-10] MEDS ORDERED: PNEUMOCOCCAL VAX SCREEN BY RX. MC ONE (11:00)
[2016-10-10] MEDS ORDERED: PNEUMOC CONJ VACC 23-VALENT 0.5 ML VIAL. VAX IM ONE (13:00)
[2016-10-10] MEDS ORDERED: GABA-586 PO (14:33)
[2016-10-10] MEDS ORDERED: SERT50TA8 PO (14:33)
[2016-10-10] MEDS ORDERED: METF-620 PO (14:33)
[2016-10-10] MEDS ORDERED: ISOS30TA4 PO (14:33)
[2016-10-10 14:37] VITALS: BP 148/79
[2016-10-10] MEDS: HYDROcodone/APAP 5/325MG 1 TAB TABLET PO PRN ×2 (14:42→19:23)
[2016-10-10] MEDS ORDERED: ALBUTEROL SULFATE 2.5 MG/3 ML NEBU. NEB PRN (14:45)
[2016-10-10] MEDS: cloNIDine HCL 0.2 MG TABLET PO SCH ×2 (15:00→21:58)
[2016-10-10] MEDS: amLODIPine BESYLATE 10 MG TABLET PO SCH (17:49)
[2016-10-10] MEDS: PANTOPRAZOLE 40 MG TABLET.DR. PO SCH (17:49)
[2016-10-10] MEDS: CARVEDILOL 12.5 MG TABLET. PO SCH (17:49)
[2016-10-10] MEDS: INSULIN ASPART 300 UNITS/3 ML INSULN.PEN SQ SCH (17:59)
[2016-10-10 19:30] VITALS: BP 149/61
[2016-10-10] MEDS ORDERED: INSULIN DETEMIR 300 UNITS/3 ML INSULN.PEN. SQ SCH (21:00)
[2016-10-10] MEDS: ATORVASTATIN CALCIUM 40 MG TABLET. PO SCH (21:57)
[2016-10-10] MEDS ORDERED: INSU300I SQ (22:19)
[2016-10-10] MEDS: INSULIN DETEMIR 300 UNITS/3 ML INSULN.PEN. SQ SCH (22:47)
[2016-10-10 23:15] VITALS: BP 100/50
--- NOTE | 2016-10-11 00:24 | HP ---
ADMIT DATE: 10/09/2016 CHIEF COMPLAINT: Shortness of breath. HISTORY OF PRESENT ILLNESS: The patient is a pleasant elderly -[place] female who has known CHF and COPD. She presents with respiratory failure. She is very short of breath, rates it 7/10, worse with movement, better with sitting still, has been coming on for a few days. She tried a rescue inhaler but that did not work. She has now been placed on BiPAP. We are admitting the patient with consultation to Pulmonary Medicine and Cardiology. PAST MEDICAL HISTORY: Obesity, CHF, COPD, diabetes, hypertension, insomnia. PAST SURGICAL HISTORY: Tonsillectomy, right arm surgery, right leg surgery. ALLERGIES: None. FAMILY HISTORY: Diabetes. SOCIAL HISTORY: She used to smoke; she quit. No drink or drugs. MEDICATIONS: Reviewed, please refer to the MRAD. REVIEW OF SYSTEMS: GENERAL: No history of weight change, weakness or fevers. SKIN: No bruising, hair changes or rashes. EYES: No blurred, double or loss of vision. NOSE AND THROAT: No history of nosebleeds, hoarseness or sore throat. HEART: No history of palpitations, chest pain or shortness of breath on exertion. LUNGS: She complains of shortness of breath. GASTROINTESTINAL: Denies changes in appetite, nausea, vomiting, diarrhea or constipation. GENITOURINARY: No history of frequency, urgency, hesitancy or nocturia. NEUROLOGIC: Denies history of numbness, tingling, tremor or weakness. PSYCHIATRIC: No history of panic, anxiety or depression. ENDOCRINE: No history of heat or cold intolerance, polyuria or polydipsia. MUSCULOSKELETAL: She complains of arthritic pain. PHYSICAL EXAMINATION: VITAL SIGNS: Temperature afebrile, pulse 92, respirations 20, blood pressure 159/68. GENERAL: She is sleeping. She is on BiPAP. She awakens and then goes back to sleep. HEART: Distant S1, S2 with a soft S3. LUNGS: Bibasilar crackles. ABDOMEN: Soft, obese. EXTREMITIES: 1+ edema. SKIN: No rashes. ENDOCRINE: No thyromegaly. LYMPHATICS: No cervical nodes. HEMATOPOIETIC: No bruising. LABORATORY DATA: White count 12, hemoglobin 9, platelets 327. Electrolytes pending. Troponin is 0. Urinalysis negative. ASSESSMENT AND PLAN: Respiratory failure secondary to acute on chronic chronic obstructive pulmonary disease and acute on chronic systolic and diastolic heart failure. The patient has been admitted, we are using BiPAP. Consult pulmonary medicines. Consult Cardiology. Serial enzymes, serial EKGs, echocardiogram, IV steroids, breathing treatments, oxygen, and antibiotics. Continue home medicines, daily labs, PT, OT. SABIHA LANTIGUA DO DR: DANILO/derik JOB#: [id number] / [id number]
[2016-10-11] MEDS ORDERED: VANCOMYCIN 2 GM in IV NORMAL SALINE 500ML BAG 500 ML IV SCH (01:00)
[2016-10-11] MEDS: HYDROcodone/APAP 5/325MG 1 TAB TABLET PO PRN ×4 (01:11→21:17)
[2016-10-11] MEDS: PIPERACILLIN/TAZOBACTAM 3.375 GM in IV NORMAL SALINE 50ML 50 ML IV SCH ×4 (01:11→17:33)
[2016-10-11 03:20] VITALS: BP 109/45
[2016-10-11 04:23] LABS: BASO # 0.1 x10^3/uL (0.0-0.2); BASO % 1 % (0-3); EOS % 2 % (0-3); HEMATOCRIT 27.1 % (36.0-47.0); HEMOGLOBIN 8.7 g/dL (12.0-15.5); LYMPH # 1.4 x10^3/uL (1.0-4.8); LYMPH % 17 % (24-48); MEAN CORPUSCULAR HEMOGLOBIN 28 pg (25-35); MEAN CORPUSCULAR HGB CONC 32 g/dL (31-37); MEAN CORPUSCULAR VOLUME 88 fL (79-100); MONO % 9 % (0-9); NEUT % 72 % (31-73); PLATELET COUNT 295 x10^3/uL (140-400); RED BLOOD COUNT 3.09 x10^6/uL (3.50-5.40); WHITE BLOOD COUNT 8.7 x10^3/uL (4.0-11.0)
[2016-10-11 04:44] LABS: CALCIUM 8.8 mg/dL (8.5-10.1); CREATININE 2.3 mg/dL (0.6-1.0); GFR 26.4; POTASSIUM 3.4 mmol/L (3.5-5.1)
[2016-10-11] MEDS: INSULIN ASPART 300 UNITS/3 ML INSULN.PEN SQ SCH ×3 (07:30→17:43)
[2016-10-11 07:55] VITALS: BP 132/66
--- NOTE | 2016-10-11 09:26 | PDOC ---
PULMONARY PROGRESS NOTES Subjective PT LESS SOA Vitals Vital Signs Date Time Temp Pulse Resp B/P (MAP) Pulse Ox O2 Delivery O2 Flow Rate FiO2 10/11/16 08:10 Nasal Cannula 2.0 10/11/16 07:55 97.9 60 21 132/66 (88) 91 97.9 ROS: No Nausea, No Chest Pain, No Abdominal Pain, No Increase Cough General: Alert, Oriented X4, No acute distress Lungs: Clear Cardiovascular: S1, S2 Abdomen: Soft, Non-tender Neuro Exam: Alert Extremities: No Edema Skin: Warm Labs Laboratory Tests Test 10/09/16 19:20 10/09/16 19:23 10/10/16 00:01 10/10/16 00:05 White Blood Count 12.2 x10^3/uL (4.0-11.0) Red Blood Count 3.23 x10^6/uL (3.50-5.40) Hemoglobin 9.2 g/dL (12.0-15.5) Hematocrit 27.9 % (36.0-47.0) Mean Corpuscular Volume 86 fL (79-100) Mean Corpuscular Hemoglobin 28 pg (25-35) Mean Corpuscular Hemoglobin Concent 33 g/dL (31-37) Red Cell Distribution Width 17.7 % (11.5-14.5) Platelet Count 327 x10^3/uL (140-400) Neutrophils (%) (Auto) 80 % (31-73) Lymphocytes (%) (Auto) 9 % (24-48) Monocytes (%) (Auto) 7 % (0-9) Eosinophils (%) (Auto) 4 % (0-3) Basophils (%) (Auto) 1 % (0-3) Neutrophils # (Auto) 9.8 x10^3uL (1.8-7.7) Lymphocytes # (Auto) 1.1 x10^3/uL (1.0-4.8) Monocytes # (Auto) 0.8 x10^3/uL (0.0-1.1) Eosinophils # (Auto) 0.4 x10^3/uL (0.0-0.7) Basophils # (Auto) 0.1 x10^3/uL (0.0-0.2) Sodium Level 142 mmol/L (136-145) Potassium Level 4.1 mmol/L (3.5-5.1) Chloride Level 104 mmol/L (98-107) Carbon Dioxide Level 32 mmol/L (21-32) Anion Gap 6 (6-14) Blood Urea Nitrogen 22 mg/dL (7-20) Creatinine 1.8 mg/dL (0.6-1.0) Estimated GFR (Cockcroft-Gault) 35.0 BUN/Creatinine Ratio 12 (6-20) Glucose Level 200 mg/dL (70-99) Calcium Level 9.2 mg/dL (8.5-10.1) Total Bilirubin 0.3 mg/dL (0.2-1.0) Aspartate Amino Transf (AST/SGOT) 22 U/L (15-37) Alanine Aminotransferase (ALT/SGPT) 18 U/L (14-59) Alkaline Phosphatase 194 U/L (46-116) Creatine Kinase 245 U/L (26-192) Creatine Kinase MB (Mass) 1.4 ng/mL (0.0-3.6) Creatine Kinase MB Relative Index 0.6 % (0-4) Troponin I Quantitative 0.039 ng/mL (0.000-0.055) FX-Ujw-M-Type Natriuretic Peptide 2409 pg/mL (0-124) Total Protein 7.9 g/dL (6.4-8.2) Albumin 3.1 g/dL (3.4-5.0) Albumin/Globulin Ratio 0.6 (1.0-1.7) O2 Saturation 92 % (92-99) Arterial Blood pH 7.40 (7.35-7.45) Arterial Blood pCO2 at Patient Temp 49 mmHg (35-46) Arterial Blood pO2 at Patient Temp 67 mmHg (75-108) Arterial Blood HCO3 30 mmol/L (21-28) Arterial Blood Base Excess 4 mmol/L (-3-3) Oxyhemoglobin 90.3 % Methemoglobin 0.2 % (0.0-1.9) Carbon Monoxide, Quantitative 2.1 % (0.0-1.9) FiO2 35 Lactic Acid Level 0.8 mmol/L (0.4-2.0) Procalcitonin < 0.10 ng/mL (0.00-0.10) Urine Collection Type U cath Urine Color Yellow Urine Clarity Clear Urine pH 5.0 Urine Specific [employer] 1.010 Urine Protein >=300 mg/dL (NEG-TRACE) Urine Glucose (UA) Negative mg/dL (NEG) Urine Ketones (Stick) Negative mg/dL (NEG) Urine Blood Negative (NEG) Urine Nitrite Negative (NEG) Urine Bilirubin Negative (NEG) Urine Urobilinogen Dipstick 0.2 mg/dL (0.2 mg/dL) Urine Leukocyte Esterase Negative (NEG) Urine RBC Occ /HPF (0-2) Urine WBC 1-4 /HPF (0-4) Urine Squamous Epithelial Cells Few /LPF Urine Bacteria Few /HPF (0-FEW) Urine Hyaline Casts Few /HPF Urine Mucus Slight /LPF Test 10/10/16 03:00 10/10/16 07:45 10/10/16 08:55 10/10/16 10:21 Troponin I Quantitative 0.043 ng/mL (0.000-0.055) 0.033 ng/mL (0.000-0.055) Glucose (Fingerstick) 217 mg/dL (70-99) 210 mg/dL (70-99) Test 10/10/16 17:18 10/10/16 20:39 10/11/16 03:55 10/11/16 07:57 Glucose (Fingerstick) 229 mg/dL (70-99) 198 mg/dL (70-99) 129 mg/dL (70-99) White Blood Count 8.7 x10^3/uL (4.0-11.0) Red Blood Count 3.09 x10^6/uL (3.50-5.40) Hemoglobin 8.7 g/dL (12.0-15.5) Hematocrit 27.1 % (36.0-47.0) Mean Corpuscular Volume 88 fL (79-100) Mean Corpuscular Hemoglobin 28 pg (25-35) Mean Corpuscular Hemoglobin Concent 32 g/dL (31-37) Red Cell Distribution Width 17.0 % (11.5-14.5) Platelet Count 295 x10^3/uL (140-400) Neutrophils (%) (Auto) 72 % (31-73) Lymphocytes (%) (Auto) 17 % (24-48) Monocytes (%) (Auto) 9 % (0-9) Eosinophils (%) (Auto) 2 % (0-3) Basophils (%) (Auto) 1 % (0-3) Neutrophils # (Auto) 6.3 x10^3uL (1.8-7.7) Lymphocytes # (Auto) 1.4 x10^3/uL (1.0-4.8) Monocytes # (Auto) 0.8 x10^3/uL (0.0-1.1) Eosinophils # (Auto) 0.2 x10^3/uL (0.0-0.7) Basophils # (Auto) 0.1 x10^3/uL (0.0-0.2) Sodium Level 142 mmol/L (136-145) Potassium Level 3.4 mmol/L (3.5-5.1) Chloride Level 102 mmol/L (98-107) Carbon Dioxide Level 31 mmol/L (21-32) Anion Gap 9 (6-14) Blood Urea Nitrogen 33 mg/dL (7-20) Creatinine 2.3 mg/dL (0.6-1.0) Estimated GFR (Cockcroft-Gault) 26.4 Glucose Level 152 mg/dL (70-99) Calcium Level 8.8 mg/dL (8.5-10.1) Laboratory Tests Test 10/10/16 10:21 10/10/16 17:18 10/10/16 20:39 10/11/16 03:55 Glucose (Fingerstick) 210 mg/dL (70-99) 229 mg/dL (70-99) 198 mg/dL (70-99) White Blood Count 8.7 x10^3/uL (4.0-11.0) Red Blood Count 3.09 x10^6/uL (3.50-5.40) Hemoglobin 8.7 g/dL (12.0-15.5) Hematocrit 27.1 % (36.0-47.0) Mean Corpuscular Volume 88 fL (79-100) Mean Corpuscular Hemoglobin 28 pg (25-35) Mean Corpuscular Hemoglobin Concent 32 g/dL (31-37) Red Cell Distribution Width 17.0 % (11.5-14.5) Platelet Count 295 x10^3/uL (140-400) Neutrophils (%) (Auto) 72 % (31-73) Lymphocytes (%) (Auto) 17 % (24-48) Monocytes (%) (Auto) 9 % (0-9) Eosinophils (%) (Auto) 2 % (0-3) Basophils (%) (Auto) 1 % (0-3) Neutrophils # (Auto) 6.3 x10^3uL (1.8-7.7) Lymphocytes # (Auto) 1.4 x10^3/uL (1.0-4.8) Monocytes # (Auto) 0.8 x10^3/uL (0.0-1.1) Eosinophils # (Auto) 0.2 x10^3/uL (0.0-0.7) Basophils # (Auto) 0.1 x10^3/uL (0.0-0.2) Sodium Level 142 mmol/L (136-145) Potassium Level 3.4 mmol/L (3.5-5.1) Chloride Level 102 mmol/L (98-107) Carbon Dioxide Level 31 mmol/L (21-32) Anion Gap 9 (6-14) Blood Urea Nitrogen 33 mg/dL (7-20) Creatinine 2.3 mg/dL (0.6-1.0) Estimated GFR (Cockcroft-Gault) 26.4 Glucose Level 152 mg/dL (70-99) Calcium Level 8.8 mg/dL (8.5-10.1) Test 10/11/16 07:57 Glucose (Fingerstick) 129 mg/dL (70-99) Medications Active Scripts Medications Dose Route/Sig Max Daily Dose Days Date Category [place] 5-325 Tablet (Acetaminophen/Hydrocodone Bitart) 1 Each Tablet 1-2 Tab PO Q4-6HRS PRN 01/30/16 Rx Tessalon Perle (Benzonatate) 100 Mg Capsule 1 Cap PO TID PRN 01/30/16 Rx Levaquin (Levofloxacin) 750 Mg Tablet 1 Tab PO DAILY 01/30/16 Rx Doxycycline Hyclate 100 Mg Tablet 100 Mg PO BID 10/08/15 Rx Furosemide 80 Mg Tablet 80 Mg PO DAILY 10/08/15 Rx Amlodipine Besylate 10 Mg Tablet 10 Mg PO DAILY 09/27/15 Rx Robaxin (Methocarbamol) 500 Mg Tablet 500 Mg PO HS PRN 09/15/15 Rx Novolog Flexpen (Insulin Aspart) 100 Unit/1 Ml Insuln.pen 10 Units SQ TIDAC 1/12/16 Rx Hydralazine Hcl 50 Mg Tablet 100 Mg PO Q8HRS 05/27/15 Rx Furosemide 40 Mg Tablet 40 Mg PO DAILY 05/27/15 Rx Prednisone 20 Mg Tablet 40 Mg PO DAILY 05/27/15 Rx Atorvastatin Calcium 40 Mg Tablet 1 Tab PO DAILY 05/23/15 Reported Lisinopril 40 Mg Tablet 1 Tab PO DAILY 05/23/15 Reported Omeprazole 40 Mg Capsule.dr 1 Cap PO DAILY 05/23/15 Reported Ventolin Hfa Inhaler (Albuterol Sulfate) 18 Gm Hfa.aer.ad 2 Puff IH PRN Q4-6HRS 05/23/15 Reported Percocet 10-325 Mg Tablet (Oxycodone/Acetaminophen) 1 Each Tablet 1 Tab PO Q4-6HRS 06/10/14 Reported Lantus Solostar (Insulin Glargine,Hum.rec.anlog) 100 Unit/1 Ml Insuln.pen 30 Unit SQ BID 06/10/14 Reported Glipizide 10 Mg Tablet 1 Tab PO BIDAC 06/10/14 Reported Clonidine Hcl 0.2 Mg Tablet 1 Tab PO BID 06/10/14 Reported Coreg (Carvedilol) 25 Mg Tablet 1 Tab PO [id number] 06/10/14 Reported Impression . 1. Acute respiratory failure, multifactorial secondary to acute on chronic heart failure and possible pneumonia. 2. Possible pneumonia. Cover for both gram-positive and gram-negative organisms. 3. Leukocytosis. 4. Fever. 5. Possible sepsis. 6. Hypertension, uncontrolled. Plan . SUSPECT MOSTLY HEART FAILURE CXR IMPROVED WILL NARROW ANTIBX COVERAGE CONTINUE DIURESE PRN BIPAP DIMPLE ACOSTA MD October 11, 2016 09:26
[2016-10-11] MEDS: PANTOPRAZOLE 40 MG TABLET.DR. PO SCH (09:27)
[2016-10-11] MEDS: ENOXAPARIN 40 MG/0.4 ML SYRINGE. SQ SCH ×2 (09:27→22:00)
[2016-10-11] MEDS: FUROSEMIDE 40 MG/4 ML VIAL. IVP SCH (09:27)
--- NOTE | 2016-10-11 09:31 | RAD ---
Portable AP chest. History: CHF AP view was taken of the chest. The heart is enlarged. There has been an improvement in the vascular congestion and pulmonary edema compared to 2 days ago. No new infiltrates are noted. Impression: 1. Improving heart failure.
[2016-10-11] MEDS: cloNIDine HCL 0.2 MG TABLET PO SCH ×2 (09:35→21:10)
[2016-10-11] MEDS: CARVEDILOL 12.5 MG TABLET. PO SCH ×2 (09:36→14:38)
[2016-10-11] MEDS: amLODIPine BESYLATE 10 MG TABLET PO SCH (09:36)
[2016-10-11 11:04] VITALS: BP 102/49
--- NOTE | 2016-10-11 11:21 | PDOC ---
PROGRESS NOTES Chief Complaint Chief Complaint 1. Acute respiratory failure, multifactorial secondary to acute on chronic heart failure and possible pneumonia. 2. Possible pneumonia. Cover for both gram-positive and gram-negative organisms. 3. Leukocytosis. 4. Fever. 5. Possible sepsis. 6. Hypertension, uncontrolled. 7. Accelerated hTN POA 8. Hx cOPD 9. CHF diastolic 10. Morbid obesity 11. Urinary retention History of Present Illness History of Present Illness Up in chair, off bipAP BUt so sleepy - dozes off on me while I talk to her Unsure if did OP sleep study Needs CPAP at home LAbs reveiwed, chart and other notes reviewed STill on IV zosyn [place] in Imaging shows very distended bladder Good uO in lopez PLAN Cont IV zosyn BIPAP Follow pulmo and cards recs Consult urology re urinary retention NO narcs, WOF over sedation Keep lopez for now BP better.. (not hypertensive anymore) Vitals Vitals Vital Signs Date Time Temp Pulse Resp B/P (MAP) Pulse Ox O2 Delivery O2 Flow Rate FiO2 10/11/16 11:04 98.3 64 20 102/49 (66) 91 Room Air 98.3 10/11/16 09:53 2.0 Physical Exam General: moderate distress, Other (on BiPAP) Heart: Regular rate, No murmurs Lungs: Clear Abdomen: Soft, No tenderness Extremities: Other (trace pedal edema) Skin: No rashes Labs LABS Laboratory Tests Test 10/10/16 17:18 10/10/16 20:39 10/11/16 03:55 10/11/16 07:57 Glucose (Fingerstick) 229 mg/dL (70-99) 198 mg/dL (70-99) 129 mg/dL (70-99) White Blood Count 8.7 x10^3/uL (4.0-11.0) Red Blood Count 3.09 x10^6/uL (3.50-5.40) Hemoglobin 8.7 g/dL (12.0-15.5) Hematocrit 27.1 % (36.0-47.0) Mean Corpuscular Volume 88 fL (79-100) Mean Corpuscular Hemoglobin 28 pg (25-35) Mean Corpuscular Hemoglobin Concent 32 g/dL (31-37) Red Cell Distribution Width 17.0 % (11.5-14.5) Platelet Count 295 x10^3/uL (140-400) Neutrophils (%) (Auto) 72 % (31-73) Lymphocytes (%) (Auto) 17 % (24-48) Monocytes (%) (Auto) 9 % (0-9) Eosinophils (%) (Auto) 2 % (0-3) Basophils (%) (Auto) 1 % (0-3) Neutrophils # (Auto) 6.3 x10^3uL (1.8-7.7) Lymphocytes # (Auto) 1.4 x10^3/uL (1.0-4.8) Monocytes # (Auto) 0.8 x10^3/uL (0.0-1.1) Eosinophils # (Auto) 0.2 x10^3/uL (0.0-0.7) Basophils # (Auto) 0.1 x10^3/uL (0.0-0.2) Sodium Level 142 mmol/L (136-145) Potassium Level 3.4 mmol/L (3.5-5.1) Chloride Level 102 mmol/L (98-107) Carbon Dioxide Level 31 mmol/L (21-32) Anion Gap 9 (6-14) Blood Urea Nitrogen 33 mg/dL (7-20) Creatinine 2.3 mg/dL (0.6-1.0) Estimated GFR (Cockcroft-Gault) 26.4 Glucose Level 152 mg/dL (70-99) Calcium Level 8.8 mg/dL (8.5-10.1) Review of Systems Review of Systems sleepy, urinary retention, no SOA< no CP, no abd pain Assessment and Plan Assessmemt and Plan Problems Medical Problems: (1) CHF (congestive heart failure) Status: Acute (2) COPD exacerbation Status: Acute (3) Respiratory distress Status: Acute Problems: Comment Review of Relevant I have reviewed the following items jessee (where applicable) has been applied. Labs Laboratory Tests Test 10/09/16 19:20 10/09/16 19:23 10/10/16 00:01 10/10/16 00:05 White Blood Count 12.2 x10^3/uL (4.0-11.0) Red Blood Count 3.23 x10^6/uL (3.50-5.40) Hemoglobin 9.2 g/dL (12.0-15.5) Hematocrit 27.9 % (36.0-47.0) Mean Corpuscular Volume 86 fL (79-100) Mean Corpuscular Hemoglobin 28 pg (25-35) Mean Corpuscular Hemoglobin Concent 33 g/dL (31-37) Red Cell Distribution Width 17.7 % (11.5-14.5) Platelet Count 327 x10^3/uL (140-400) Neutrophils (%) (Auto) 80 % (31-73) Lymphocytes (%) (Auto) 9 % (24-48) Monocytes (%) (Auto) 7 % (0-9) Eosinophils (%) (Auto) 4 % (0-3) Basophils (%) (Auto) 1 % (0-3) Neutrophils # (Auto) 9.8 x10^3uL (1.8-7.7) Lymphocytes # (Auto) 1.1 x10^3/uL (1.0-4.8) Monocytes # (Auto) 0.8 x10^3/uL (0.0-1.1) Eosinophils # (Auto) 0.4 x10^3/uL (0.0-0.7) Basophils # (Auto) 0.1 x10^3/uL (0.0-0.2) Sodium Level 142 mmol/L (136-145) Potassium Level 4.1 mmol/L (3.5-5.1) Chloride Level 104 mmol/L (98-107) Carbon Dioxide Level 32 mmol/L (21-32) Anion Gap 6 (6-14) Blood Urea Nitrogen 22 mg/dL (7-20) Creatinine 1.8 mg/dL (0.6-1.0) Estimated GFR (Cockcroft-Gault) 35.0 BUN/Creatinine Ratio 12 (6-20) Glucose Level 200 mg/dL (70-99) Calcium Level 9.2 mg/dL (8.5-10.1) Total Bilirubin 0.3 mg/dL (0.2-1.0) Aspartate Amino Transf (AST/SGOT) 22 U/L (15-37) Alanine Aminotransferase (ALT/SGPT) 18 U/L (14-59) Alkaline Phosphatase 194 U/L (46-116) Creatine Kinase 245 U/L (26-192) Creatine Kinase MB (Mass) 1.4 ng/mL (0.0-3.6) Creatine Kinase MB Relative Index 0.6 % (0-4) Troponin I Quantitative 0.039 ng/mL (0.000-0.055) HA-Pan-T-Type Natriuretic Peptide 2409 pg/mL (0-124) Total Protein 7.9 g/dL (6.4-8.2) Albumin 3.1 g/dL (3.4-5.0) Albumin/Globulin Ratio 0.6 (1.0-1.7) O2 Saturation 92 % (92-99) Arterial Blood pH 7.40 (7.35-7.45) Arterial Blood pCO2 at Patient Temp 49 mmHg (35-46) Arterial Blood pO2 at Patient Temp 67 mmHg (75-108) Arterial Blood HCO3 30 mmol/L (21-28) Arterial Blood Base Excess 4 mmol/L (-3-3) Oxyhemoglobin 90.3 % Methemoglobin 0.2 % (0.0-1.9) Carbon Monoxide, Quantitative 2.1 % (0.0-1.9) FiO2 35 Lactic Acid Level 0.8 mmol/L (0.4-2.0) Procalcitonin < 0.10 ng/mL (0.00-0.10) Urine Collection Type U cath Urine Color Yellow Urine Clarity Clear Urine pH 5.0 Urine Specific [place] 1.010 Urine Protein >=300 mg/dL (NEG-TRACE) Urine Glucose (UA) Negative mg/dL (NEG) Urine Ketones (Stick) Negative mg/dL (NEG) Urine Blood Negative (NEG) Urine Nitrite Negative (NEG) Urine Bilirubin Negative (NEG) Urine Urobilinogen Dipstick 0.2 mg/dL (0.2 mg/dL) Urine Leukocyte Esterase Negative (NEG) Urine RBC Occ /HPF (0-2) Urine WBC 1-4 /HPF (0-4) Urine Squamous Epithelial Cells Few /LPF Urine Bacteria Few /HPF (0-FEW) Urine Hyaline Casts Few /HPF Urine Mucus Slight /LPF Test 10/10/16 03:00 10/10/16 07:45 10/10/16 08:55 10/10/16 10:21 Troponin I Quantitative 0.043 ng/mL (0.000-0.055) 0.033 ng/mL (0.000-0.055) Glucose (Fingerstick) 217 mg/dL (70-99) 210 mg/dL (70-99) Test 10/10/16 17:18 10/10/16 20:39 10/11/16 03:55 10/11/16 07:57 Glucose (Fingerstick) 229 mg/dL (70-99) 198 mg/dL (70-99) 129 mg/dL (70-99) White Blood Count 8.7 x10^3/uL (4.0-11.0) Red Blood Count 3.09 x10^6/uL (3.50-5.40) Hemoglobin 8.7 g/dL (12.0-15.5) Hematocrit 27.1 % (36.0-47.0) Mean Corpuscular Volume 88 fL (79-100) Mean Corpuscular Hemoglobin 28 pg (25-35) Mean Corpuscular Hemoglobin Concent 32 g/dL (31-37) Red Cell Distribution Width 17.0 % (11.5-14.5) Platelet Count 295 x10^3/uL (140-400) Neutrophils (%) (Auto) 72 % (31-73) Lymphocytes (%) (Auto) 17 % (24-48) Monocytes (%) (Auto) 9 % (0-9) Eosinophils (%) (Auto) 2 % (0-3) Basophils (%) (Auto) 1 % (0-3) Neutrophils # (Auto) 6.3 x10^3uL (1.8-7.7) Lymphocytes # (Auto) 1.4 x10^3/uL (1.0-4.8) Monocytes # (Auto) 0.8 x10^3/uL (0.0-1.1) Eosinophils # (Auto) 0.2 x10^3/uL (0.0-0.7) Basophils # (Auto) 0.1 x10^3/uL (0.0-0.2) Sodium Level 142 mmol/L (136-145) Potassium Level 3.4 mmol/L (3.5-5.1) Chloride Level 102 mmol/L (98-107) Carbon Dioxide Level 31 mmol/L (21-32) Anion Gap 9 (6-14) Blood Urea Nitrogen 33 mg/dL (7-20) Creatinine 2.3 mg/dL (0.6-1.0) Estimated GFR (Cockcroft-Gault) 26.4 Glucose Level 152 mg/dL (70-99) Calcium Level 8.8 mg/dL (8.5-10.1) Laboratory Tests Test 10/10/16 17:18 10/10/16 20:39 10/11/16 03:55 10/11/16 07:57 Glucose (Fingerstick) 229 mg/dL (70-99) 198 mg/dL (70-99) 129 mg/dL (70-99) White Blood Count 8.7 x10^3/uL (4.0-11.0) Red Blood Count 3.09 x10^6/uL (3.50-5.40) Hemoglobin 8.7 g/dL (12.0-15.5) Hematocrit 27.1 % (36.0-47.0) Mean Corpuscular Volume 88 fL (79-100) Mean Corpuscular Hemoglobin 28 pg (25-35) Mean Corpuscular Hemoglobin Concent 32 g/dL (31-37) Red Cell Distribution Width 17.0 % (11.5-14.5) Platelet Count 295 x10^3/uL (140-400) Neutrophils (%) (Auto) 72 % (31-73) Lymphocytes (%) (Auto) 17 % (24-48) Monocytes (%) (Auto) 9 % (0-9) Eosinophils (%) (Auto) 2 % (0-3) Basophils (%) (Auto) 1 % (0-3) Neutrophils # (Auto) 6.3 x10^3uL (1.8-7.7) Lymphocytes # (Auto) 1.4 x10^3/uL (1.0-4.8) Monocytes # (Auto) 0.8 x10^3/uL (0.0-1.1) Eosinophils # (Auto) 0.2 x10^3/uL (0.0-0.7) Basophils # (Auto) 0.1 x10^3/uL (0.0-0.2) Sodium Level 142 mmol/L (136-145) Potassium Level 3.4 mmol/L (3.5-5.1) Chloride Level 102 mmol/L (98-107) Carbon Dioxide Level 31 mmol/L (21-32) Anion Gap 9 (6-14) Blood Urea Nitrogen 33 mg/dL (7-20) Creatinine 2.3 mg/dL (0.6-1.0) Estimated GFR (Cockcroft-Gault) 26.4 Glucose Level 152 mg/dL (70-99) Calcium Level 8.8 mg/dL (8.5-10.1) Microbiology 10/10/16 Blood Culture - Preliminary, Resulted NO GROWTH AFTER 1 DAY Medications Current Medications Furosemide (Lasix) 40 mg 1X ONCE IVP Last administered on 10/09/16 19:40; Start 10/09/16 at 19:30; Stop 10/09/16 at 19:31; Status DC Fentanyl Citrate (Fentanyl 2ml Vial) 25 mcg PRN Q15MIN PRN IV PAIN GREATER THAN 3/10 Last administered on 10/09/16 19:41; Start 10/09/16 at 19:45; Stop at 23:47; Status DC Nitroglycerin (Nitrostat) 0.4 mg PRN Q5MIN PRN SL CHEST PAIN Last administered on 10/09/16 20:03; Start 10/09/16 at 20:00 Methylprednisolone Sodium Succinate (SOLU-Medrol 40MG VIAL) 40 mg 1X ONCE IV Last administered on 10/09/16 20:57; Start 10/09/16 at 20:45; Stop 10/09/16 at 20:46; Status DC Albuterol/ Ipratropium (Duoneb) 3 ml 1X ONCE NEB Last administered on 20:48; Start 10/09/16 at 20:45; Stop 10/09/16 at 20:46; Status DC Metoprolol Tartrate (Lopressor) 5 mg 1X ONCE IVP Last administered on 21:00; Start 10/09/16 at 20:45; Stop 10/09/16 at 20:46; Status DC Albuterol/ Ipratropium (Duoneb) 3 ml STK-MED ONCE .ROUTE ; Start 10/09/16 at 20: 42; Stop 10/09/16 at 20:43; Status DC Acetaminophen (Tylenol) 650 mg PRN Q6HRS PRN PO MILD PAIN / TEMP Last administered on 10/10/16 01:13; Start 10/10/16 at 00:00 Piperacillin Sod/ Tazobactam Sod 3.375 gm/Sodium Chloride 50 ml @ 100 mls/hr Q6HRS IV Last administered on 10/11/16 05:02; Start 10/10/16 at 00:30 Vancomycin HCl 1 gm/Sodium Chloride 250 ml @ 250 mls/hr Q12H IV ; Start at 00:00; Status UNV Vancomycin HCl (Vanco Per Pharmacy) 1 each PRN DAILY PRN MC SEE COMMENTS Last administered on 10/10/16 09:57; Start 10/10/16 at 00:15; Stop 10/11/16 at 11:09 ; Status DC Vancomycin HCl 2 gm/Sodium Chloride 500 ml @ 250 mls/hr 1X ONCE IV Last administered on 10/10/16 01:13; Start 10/10/16 at 01:00; Stop 10/10/16 at 02:59 ; Status DC Vancomycin HCl 2 gm/Sodium Chloride 500 ml @ 250 mls/hr Q24H IV Last administered on 10/10/16 02:50; Start 10/11/16 at 01:00; Stop 10/11/16 at 11:02 ; Status DC Vancomycin HCl 1 each 1X ONCE MC ; Start 10/12/16 at 00:30; Stop 10/12/16 at 00 :30; Status DC Furosemide (Lasix) 40 mg DAILY IVP Last administered on 10/11/16 09:27; Start 10/10/16 at 09:00 Enoxaparin Sodium (Lovenox 30mg Syringe) 30 mg Q24H SQ ; Start 10/10/16 at 08:00 ; Stop 10/10/16 at 08:00; Status DC Enoxaparin Sodium (Lovenox 40mg Syringe) 40 mg Q24H SQ Last administered on 09:46; Start 10/10/16 at 08:00; Stop 10/10/16 at 09:46; Status DC Enoxaparin Sodium (Lovenox 40mg Syringe) 40 mg Q12H SQ Last administered on 09:27; Start 10/10/16 at 10:00 Pneumococcal Polyvalent Vaccine (Do NOT chart on this placeholder) 1 each 1X ONCE MC ; Start 10/10/16 at 11:00; Stop 10/10/16 at 11:01; Status UNV Pneumococcal Polyvalent Vaccine (Pneumovax 23) 0.5 ml ONCE ONCE VAX IM ; Start 10/10/16 at 13:00; Stop 10/10/16 at 13:01; Status DC Amlodipine Besylate (Norvasc) 10 mg DAILY PO Last administered on 10/11/16 09: 36; Start 10/10/16 at 15:00 Atorvastatin Calcium (Lipitor) 40 mg QHS PO Last administered on 10/10/16 21: 57; Start 10/10/16 at 21:00 Benzonatate (Tessalon Perle) 100 mg PRN TID PRN PO COUGH; Start 10/10/16 at 14: 30 Clonidine HCl (Catapres) 0.2 mg BID PO Last administered on 10/11/16 09:35; Start 10/10/16 at 15:00 Hydralazine HCl (Apresoline) 50 mg TID PO Last administered on 10/11/16 09:33 ; Start 10/10/16 at 15:00 Acetaminophen/ Hydrocodone Bitart (Lortab 5/325) 1 tab PRN Q4HRS PRN PO SEVERE PAIN Last administered on 10/11/16 01:11; Start 10/10/16 at 14:30 Insulin Aspart (NovoLOG) 10 units TIDAC SQ Last administered on 10/10/16 17:59 ; Start 10/10/16 at 16:30 Albuterol Sulfate (Ventolin Neb Soln) 2.5 mg PRN Q4HRS PRN NEB SOA; Start 10/10 at 14:45 Carvedilol (Coreg) 25 mg [id number] PO Last administered on 10/11/16 09:36; Start 10/10/16 at 15:00 Pantoprazole Sodium (Protonix) 40 mg DAILYAC PO Last administered on 10/11/16 09:27; Start 10/10/16 at 15:00 Acetaminophen/ Hydrocodone Bitart (Lortab 5/325) 2 tab PRN Q4HRS PRN PO SEVERE PAIN Last administered on 10/11/16 09:53; Start 10/10/16 at 14:45 Insulin Detemir (Levemir) 30 units BID SQ ; Start 10/10/16 at 21:00; Stop at 22:24; Status DC Insulin Detemir (Levemir) 29 units HS SQ Last administered on 10/10/16t 22:47; Start 10/10/16 at 23:00 Active Scripts Active [place] 5-325 Tablet (Acetaminophen/Hydrocodone Bitart) 1 Each Tablet 1-2 Tab PO Q4-6HRS PRN Tessalon Perle (Benzonatate) 100 Mg Capsule 1 Cap PO TID PRN Levaquin (Levofloxacin) 750 Mg Tablet 1 Tab PO DAILY Doxycycline Hyclate 100 Mg Tablet 100 Mg PO BID Furosemide 80 Mg Tablet 80 Mg PO DAILY Amlodipine Besylate 10 Mg Tablet 10 Mg PO DAILY Robaxin (Methocarbamol) 500 Mg Tablet 500 Mg PO HS PRN Novolog Flexpen (Insulin Aspart) 100 Unit/1 Ml Insuln.pen 10 Units SQ TIDAC Hydralazine Hcl 50 Mg Tablet 100 Mg PO Q8HRS Furosemide 40 Mg Tablet 40 Mg PO DAILY Prednisone 20 Mg Tablet 40 Mg PO DAILY Reported Wang Hummel (Insulin Glargine,Hum.rec.anlog) 300 Unit/1 Ml Insuln.pen 36 Unit SQ HS Isosorbide Mononitrate Er (Isosorbide Mononitrate) 30 Mg Tab.er.24h 30 Mg PO TID Gabapentin 300 Mg Capsule 300 Mg PO BID Sertraline Hcl 50 Mg Tablet 50 Mg PO DAILY Metformin Hcl 1,000 Mg Tablet 1,000 Mg PO [id number] Atorvastatin Calcium 40 Mg Tablet 1 Tab PO DAILY Lisinopril 40 Mg Tablet 1 Tab PO DAILY Omeprazole 40 Mg Capsule.dr 1 Cap PO DAILY Ventolin Hfa Inhaler (Albuterol Sulfate) 18 Gm Hfa.aer.ad 2 Puff IH PRN Q4-6HRS Percocet 10-325 Mg Tablet (Oxycodone/Acetaminophen) 1 Each Tablet 1 Tab PO Q4- 6HRS Glipizide 10 Mg Tablet 1 Tab PO BIDAC Clonidine Hcl 0.2 Mg Tablet 1 Tab PO BID Coreg (Carvedilol) 25 Mg Tablet 1 Tab PO [id number] Vitals/I & O Vital Sign - Last 24 Hours 10/10/16 10/10/16 10/10/16 10/10/16 14:37 14:42 17:49 17:49 Temp 98.9 98.9 Pulse 81 89 89 Resp 22 B/P (MAP) 148/79 (102) 148/79 148/79 Pulse Ox 87 90 O2 Delivery Room Air Venturi Mask O2 Flow Rate 10.0 10/10/16 10/10/16 10/10/16 10/10/16 19:23 19:30 19:35 20:19 Temp 98.1 98.1 Pulse 89 Resp 20 22 B/P (MAP) 149/61 (90) Pulse Ox 95 96 94 O2 Delivery Room Air Room Air Nasal Cannula Nasal Cannula O2 Flow Rate 2.0 4.0 10/10/16 10/10/16 10/10/16 10/10/16 21:57 21:58 23:15 23:58 Temp 98.7 98.7 Pulse 89 89 70 Resp 22 B/P (MAP) 149/61 149/61 100/50 (67) Pulse Ox 97 97 O2 Delivery BiPAP/CPAP BiPAP/CPAP 10/11/16 10/11/16 10/11/16 10/11/16 01:11 02:11 03:20 05:02 Temp 98.0 98.0 Pulse 68 Resp 20 22 20 B/P (MAP) 109/45 (66) Pulse Ox 96 95 98 O2 Delivery Nasal Cannula Nasal Cannula Nasal Cannula Nasal Cannula O2 Flow Rate 2.0 2.0 2.0 2.0 10/11/16 10/11/16 10/11/16 10/11/16 06:02 07:55 08:10 09:33 Temp 97.9 97.9 Pulse 60 60 Resp 20 21 B/P (MAP) 132/66 (88) 132/66 Pulse Ox 98 91 O2 Delivery Nasal Cannula Room Air Nasal Cannula O2 Flow Rate 2.0 2.0 10/11/16 10/11/16 10/11/16 10/11/16 09:35 09:36 09:36 09:53 Pulse 73 73 73 B/P (MAP) 132/66 132/66 132/66 O2 Delivery Nasal Cannula O2 Flow Rate 2.0 10/11/16 11:04 Temp 98.3 98.3 Pulse 64 Resp 20 B/P (MAP) 102/49 (66) Pulse Ox 91 O2 Delivery Room Air Intake and Output 10/10/16 10/10/16 10/11/16 15:00 23:00 07:00 Intake Total 550 ml 960 ml Output Total 1000 ml 350 ml Balance -450 ml 610 ml ASAD BRAGA MD October 11, 2016 11:20
[2016-10-11 14:19] VITALS: BP 109/57
[2016-10-11 19:30] VITALS: BP 114/50
[2016-10-11] MEDS: INSULIN DETEMIR 300 UNITS/3 ML INSULN.PEN. SQ SCH (21:00)
[2016-10-11] MEDS: BENZONATATE 100 MG CAPSULE. PO PRN (21:09)
[2016-10-11] MEDS: ATORVASTATIN CALCIUM 40 MG TABLET. PO SCH (21:10)
[2016-10-11 22:50] VITALS: BP 118/54
[2016-10-12] MEDS: PIPERACILLIN/TAZOBACTAM 3.375 GM in IV NORMAL SALINE 50ML 50 ML IV SCH ×2 (00:08→05:49)
[2016-10-12 03:15] VITALS: BP 111/56
[2016-10-12] MEDS: HYDROcodone/APAP 5/325MG 1 TAB TABLET PO PRN ×5 (03:50→20:32)
[2016-10-12 05:45] LABS: BASO # 0.1 x10^3/uL (0.0-0.2); BASO % 1 % (0-3); EOS % 8 % (0-3); HEMATOCRIT 25.6 % (36.0-47.0); HEMOGLOBIN 8.2 g/dL (12.0-15.5); LYMPH # 1.7 x10^3/uL (1.0-4.8); LYMPH % 21 % (24-48); MEAN CORPUSCULAR HEMOGLOBIN 28 pg (25-35); MEAN CORPUSCULAR HGB CONC 32 g/dL (31-37); MEAN CORPUSCULAR VOLUME 87 fL (79-100); MONO % 10 % (0-9); NEUT % 60 % (31-73); PLATELET COUNT 287 x10^3/uL (140-400); RED BLOOD COUNT 2.94 x10^6/uL (3.50-5.40); RED CELL DISTRIBUTION WIDTH 17.1 % (11.5-14.5); WHITE BLOOD COUNT 7.8 x10^3/uL (4.0-11.0)
[2016-10-12 05:59] LABS: CALCIUM 8.3 mg/dL (8.5-10.1); CREATININE 2.4 mg/dL (0.6-1.0); GFR 25.1; POTASSIUM 3.6 mmol/L (3.5-5.1)
[2016-10-12 07:00] VITALS: BP 115/44
--- NOTE | 2016-10-12 08:54 | PDOC ---
PROGRESS NOTES Subjective Subjective Pt. with urinary retention Objective Objective Vital Signs Date Time Temp Pulse Resp B/P (MAP) Pulse Ox O2 Delivery O2 Flow Rate FiO2 10/12/16 07:00 98.2 73 17 115/44 (67) 94 Room Air 98.2 10/12/16 04:51 2.0 Intake and Output 10/12/16 07:00 Intake Total 1540 ml Output Total 1100 ml Balance 440 ml Intake Oral 1540 ml Output Urine Total 1100 ml Physical Exam Physical Exam lopez in place urine clear Plan Plan of Care Cr. elevated-hx of renal failure consult nephrology keep lopez, flomax f/u 2 weeks for voiding trial. Problems Medical Problems: (1) CHF (congestive heart failure) Status: Acute (2) COPD exacerbation Status: Acute (3) Respiratory distress Status: Acute Comment Review of Relevant I have reviewed the following items jessee (where applicable) has been applied. Labs Laboratory Tests Test 10/10/16 08:55 10/10/16 10:21 10/10/16 17:18 10/10/16 20:39 Troponin I Quantitative 0.033 ng/mL (0.000-0.055) Glucose (Fingerstick) 210 mg/dL (70-99) 229 mg/dL (70-99) 198 mg/dL (70-99) Test 10/11/16 03:55 10/11/16 07:57 10/11/16 11:10 10/11/16 16:56 White Blood Count 8.7 x10^3/uL (4.0-11.0) Red Blood Count 3.09 x10^6/uL (3.50-5.40) Hemoglobin 8.7 g/dL (12.0-15.5) Hematocrit 27.1 % (36.0-47.0) Mean Corpuscular Volume 88 fL (79-100) Mean Corpuscular Hemoglobin 28 pg (25-35) Mean Corpuscular Hemoglobin Concent 32 g/dL (31-37) Red Cell Distribution Width 17.0 % (11.5-14.5) Platelet Count 295 x10^3/uL (140-400) Neutrophils (%) (Auto) 72 % (31-73) Lymphocytes (%) (Auto) 17 % (24-48) Monocytes (%) (Auto) 9 % (0-9) Eosinophils (%) (Auto) 2 % (0-3) Basophils (%) (Auto) 1 % (0-3) Neutrophils # (Auto) 6.3 x10^3uL (1.8-7.7) Lymphocytes # (Auto) 1.4 x10^3/uL (1.0-4.8) Monocytes # (Auto) 0.8 x10^3/uL (0.0-1.1) Eosinophils # (Auto) 0.2 x10^3/uL (0.0-0.7) Basophils # (Auto) 0.1 x10^3/uL (0.0-0.2) Sodium Level 142 mmol/L (136-145) Potassium Level 3.4 mmol/L (3.5-5.1) Chloride Level 102 mmol/L (98-107) Carbon Dioxide Level 31 mmol/L (21-32) Anion Gap 9 (6-14) Blood Urea Nitrogen 33 mg/dL (7-20) Creatinine 2.3 mg/dL (0.6-1.0) Estimated GFR (Cockcroft-Gault) 26.4 Glucose Level 152 mg/dL (70-99) Calcium Level 8.8 mg/dL (8.5-10.1) Glucose (Fingerstick) 129 mg/dL (70-99) 178 mg/dL (70-99) 144 mg/dL (70-99) Test 10/11/16 20:46 10/12/16 05:15 10/12/16 07:57 Glucose (Fingerstick) 96 mg/dL (70-99) 170 mg/dL (70-99) White Blood Count 7.8 x10^3/uL (4.0-11.0) Red Blood Count 2.94 x10^6/uL (3.50-5.40) Hemoglobin 8.2 g/dL (12.0-15.5) Hematocrit 25.6 % (36.0-47.0) Mean Corpuscular Volume 87 fL (79-100) Mean Corpuscular Hemoglobin 28 pg (25-35) Mean Corpuscular Hemoglobin Concent 32 g/dL (31-37) Red Cell Distribution Width 17.1 % (11.5-14.5) Platelet Count 287 x10^3/uL (140-400) Neutrophils (%) (Auto) 60 % (31-73) Lymphocytes (%) (Auto) 21 % (24-48) Monocytes (%) (Auto) 10 % (0-9) Eosinophils (%) (Auto) 8 % (0-3) Basophils (%) (Auto) 1 % (0-3) Neutrophils # (Auto) 4.7 x10^3uL (1.8-7.7) Lymphocytes # (Auto) 1.7 x10^3/uL (1.0-4.8) Monocytes # (Auto) 0.8 x10^3/uL (0.0-1.1) Eosinophils # (Auto) 0.6 x10^3/uL (0.0-0.7) Basophils # (Auto) 0.1 x10^3/uL (0.0-0.2) Sodium Level 139 mmol/L (136-145) Potassium Level 3.6 mmol/L (3.5-5.1) Chloride Level 102 mmol/L (98-107) Carbon Dioxide Level 30 mmol/L (21-32) Anion Gap 7 (6-14) Blood Urea Nitrogen 37 mg/dL (7-20) Creatinine 2.4 mg/dL (0.6-1.0) Estimated GFR (Cockcroft-Gault) 25.1 Glucose Level 183 mg/dL (70-99) Calcium Level 8.3 mg/dL (8.5-10.1) Laboratory Tests Test 10/11/16 11:10 10/11/16 16:56 10/11/16 20:46 10/12/16 05:15 Glucose (Fingerstick) 178 mg/dL (70-99) 144 mg/dL (70-99) 96 mg/dL (70-99) White Blood Count 7.8 x10^3/uL (4.0-11.0) Red Blood Count 2.94 x10^6/uL (3.50-5.40) Hemoglobin 8.2 g/dL (12.0-15.5) Hematocrit 25.6 % (36.0-47.0) Mean Corpuscular Volume 87 fL (79-100) Mean Corpuscular Hemoglobin 28 pg (25-35) Mean Corpuscular Hemoglobin Concent 32 g/dL (31-37) Red Cell Distribution Width 17.1 % (11.5-14.5) Platelet Count 287 x10^3/uL (140-400) Neutrophils (%) (Auto) 60 % (31-73) Lymphocytes (%) (Auto) 21 % (24-48) Monocytes (%) (Auto) 10 % (0-9) Eosinophils (%) (Auto) 8 % (0-3) Basophils (%) (Auto) 1 % (0-3) Neutrophils # (Auto) 4.7 x10^3uL (1.8-7.7) Lymphocytes # (Auto) 1.7 x10^3/uL (1.0-4.8) Monocytes # (Auto) 0.8 x10^3/uL (0.0-1.1) Eosinophils # (Auto) 0.6 x10^3/uL (0.0-0.7) Basophils # (Auto) 0.1 x10^3/uL (0.0-0.2) Sodium Level 139 mmol/L (136-145) Potassium Level 3.6 mmol/L (3.5-5.1) Chloride Level 102 mmol/L (98-107) Carbon Dioxide Level 30 mmol/L (21-32) Anion Gap 7 (6-14) Blood Urea Nitrogen 37 mg/dL (7-20) Creatinine 2.4 mg/dL (0.6-1.0) Estimated GFR (Cockcroft-Gault) 25.1 Glucose Level 183 mg/dL (70-99) Calcium Level 8.3 mg/dL (8.5-10.1) Test 10/12/16 07:57 Glucose (Fingerstick) 170 mg/dL (70-99) Microbiology 10/10/16 Blood Culture - Preliminary, Resulted NO GROWTH AFTER 2 DAYS Medications Current Medications Furosemide (Lasix) 40 mg 1X ONCE IVP Last administered on 10/09/16 19:40; Start 10/09/16 at 19:30; Stop 10/09/16 at 19:31; Status DC Fentanyl Citrate (Fentanyl 2ml Vial) 25 mcg PRN Q15MIN PRN IV PAIN GREATER THAN 3/10 Last administered on 10/09/16 19:41; Start 10/09/16 at 19:45; Stop at 23:47; Status DC Nitroglycerin (Nitrostat) 0.4 mg PRN Q5MIN PRN SL CHEST PAIN Last administered on 10/09/16 20:03; Start 10/09/16 at 20:00 Methylprednisolone Sodium Succinate (SOLU-Medrol 40MG VIAL) 40 mg 1X ONCE IV Last administered on 10/09/16 20:57; Start 10/09/16 at 20:45; Stop 10/09/16 at 20:46; Status DC Albuterol/ Ipratropium (Duoneb) 3 ml 1X ONCE NEB Last administered on 20:48; Start 10/09/16 at 20:45; Stop 10/09/16 at 20:46; Status DC Metoprolol Tartrate (Lopressor) 5 mg 1X ONCE IVP Last administered on 21:00; Start 10/09/16 at 20:45; Stop 10/09/16 at 20:46; Status DC Albuterol/ Ipratropium (Duoneb) 3 ml STK-MED ONCE .ROUTE ; Start 10/09/16 at 20: 42; Stop 10/09/16 at 20:43; Status DC Acetaminophen (Tylenol) 650 mg PRN Q6HRS PRN PO MILD PAIN / TEMP Last administered on 10/10/16 01:13; Start 10/10/16 at 00:00 Piperacillin Sod/ Tazobactam Sod 3.375 gm/Sodium Chloride 50 ml @ 100 mls/hr Q6HRS IV Last administered on 10/12/16 05:49; Start 10/10/16 at 00:30 Vancomycin HCl 1 gm/Sodium Chloride 250 ml @ 250 mls/hr Q12H IV ; Start at 00:00; Status UNV Vancomycin HCl (Vanco Per Pharmacy) 1 each PRN DAILY PRN MC SEE COMMENTS Last administered on 10/10/16 09:57; Start 10/10/16 at 00:15; Stop 10/11/16 at 11:09 ; Status DC Vancomycin HCl 2 gm/Sodium Chloride 500 ml @ 250 mls/hr 1X ONCE IV Last administered on 10/10/16 01:13; Start 10/10/16 at 01:00; Stop 10/10/16 at 02:59 ; Status DC Vancomycin HCl 2 gm/Sodium Chloride 500 ml @ 250 mls/hr Q24H IV Last administered on 10/10/16 02:50; Start 10/11/16 at 01:00; Stop 10/11/16 at 11:02 ; Status DC Vancomycin HCl 1 each 1X ONCE MC ; Start 10/12/16 at 00:30; Stop 10/12/16 at 00 :30; Status DC Furosemide (Lasix) 40 mg DAILY IVP Last administered on 10/11/16 09:27; Start 10/10/16 at 09:00 Enoxaparin Sodium (Lovenox 30mg Syringe) 30 mg Q24H SQ ; Start 10/10/16 at 08:00 ; Stop 10/10/16 at 08:00; Status DC Enoxaparin Sodium (Lovenox 40mg Syringe) 40 mg Q24H SQ Last administered on 09:46; Start 10/10/16 at 08:00; Stop 10/10/16 at 09:46; Status DC Enoxaparin Sodium (Lovenox 40mg Syringe) 40 mg Q12H SQ Last administered on 22:00; Start 10/10/16 at 10:00 Pneumococcal Polyvalent Vaccine (Do NOT chart on this placeholder) 1 each 1X ONCE MC ; Start 10/10/16 at 11:00; Stop 10/10/16 at 11:01; Status UNV Pneumococcal Polyvalent Vaccine (Pneumovax 23) 0.5 ml ONCE ONCE VAX IM ; Start 10/10/16 at 13:00; Stop 10/10/16 at 13:01; Status DC Amlodipine Besylate (Norvasc) 10 mg DAILY PO Last administered on 10/11/16 09: 36; Start 10/10/16 at 15:00 Atorvastatin Calcium (Lipitor) 40 mg QHS PO Last administered on 10/11/16 21: 10; Start 10/10/16 at 21:00 Benzonatate (Tessalon Perle) 100 mg PRN TID PRN PO COUGH Last administered on 21:09; Start 10/10/16 at 14:30 Clonidine HCl (Catapres) 0.2 mg BID PO Last administered on 10/11/16 21:10; Start 10/10/16 at 15:00 Hydralazine HCl (Apresoline) 50 mg TID PO Last administered on 10/11/16 21:11 ; Start 10/10/16 at 15:00 Acetaminophen/ Hydrocodone Bitart (Lortab 5/325) 1 tab PRN Q4HRS PRN PO SEVERE PAIN Last administered on 10/12/16 03:50; Start 10/10/16 at 14:30 Insulin Aspart (NovoLOG) 10 units TIDAC SQ Last administered on 10/11/16 17:43 ; Start 10/10/16 at 16:30 Albuterol Sulfate (Ventolin Neb Soln) 2.5 mg PRN Q4HRS PRN NEB SOA; Start 10/10 at 14:45 Carvedilol (Coreg) 25 mg BID92 PO Last administered on 10/11/16 14:38; Start 10/10/16 at 15:00 Pantoprazole Sodium (Protonix) 40 mg DAILYAC PO Last administered on 10/11/16 09:27; Start 10/10/16 at 15:00 Acetaminophen/ Hydrocodone Bitart (Lortab 5/325) 2 tab PRN Q4HRS PRN PO SEVERE PAIN Last administered on 10/11/16 21:17; Start 10/10/16 at 14:45 Insulin Detemir (Levemir) 30 units BID SQ ; Start 10/10/16 at 21:00; Stop at 22:24; Status DC Insulin Detemir (Levemir) 29 units HS SQ Last administered on 10/10/16 22:47; Start 10/10/16 at 23:00 Active Scripts Active [place] 5-325 Tablet (Acetaminophen/Hydrocodone Bitart) 1 Each Tablet 1-2 Tab PO Q4-6HRS PRN Tessalon Perle (Benzonatate) 100 Mg Capsule 1 Cap PO TID PRN Levaquin (Levofloxacin) 750 Mg Tablet 1 Tab PO DAILY Doxycycline Hyclate 100 Mg Tablet 100 Mg PO BID Furosemide 80 Mg Tablet 80 Mg PO DAILY Amlodipine Besylate 10 Mg Tablet 10 Mg PO DAILY Robaxin (Methocarbamol) 500 Mg Tablet 500 Mg PO HS PRN Novolog Flexpen (Insulin Aspart) 100 Unit/1 Ml Insuln.pen 10 Units SQ TIDAC Hydralazine Hcl 50 Mg Tablet 100 Mg PO Q8HRS Furosemide 40 Mg Tablet 40 Mg PO DAILY Prednisone 20 Mg Tablet 40 Mg PO DAILY Reported Wang Recinosmjkari (Insulin Glargine,Hum.rec.anlog) 300 Unit/1 Ml Insuln.pen 36 Unit SQ HS Isosorbide Mononitrate Er (Isosorbide Mononitrate) 30 Mg Tab.er.24h 30 Mg PO TID Gabapentin 300 Mg Capsule 300 Mg PO BID Sertraline Hcl 50 Mg Tablet 50 Mg PO DAILY Metformin Hcl 1,000 Mg Tablet 1,000 Mg PO [id number] Atorvastatin Calcium 40 Mg Tablet 1 Tab PO DAILY Lisinopril 40 Mg Tablet 1 Tab PO DAILY Omeprazole 40 Mg Capsule.dr 1 Cap PO DAILY Ventolin Hfa Inhaler (Albuterol Sulfate) 18 Gm Hfa.aer.ad 2 Puff IH PRN Q4-6HRS Percocet 10-325 Mg Tablet (Oxycodone/Acetaminophen) 1 Each Tablet 1 Tab PO Q4- 6HRS Glipizide 10 Mg Tablet 1 Tab PO BIDAC Clonidine Hcl 0.2 Mg Tablet 1 Tab PO BID Coreg (Carvedilol) 25 Mg Tablet 1 Tab PO BID92 Vitals/I & O Vital Sign - Last 24 Hours 10/11/16 10/11/16 10/11/16 10/11/16 09:33 09:35 09:36 09:36 Pulse 60 73 73 73 B/P (MAP) 132/66 132/66 132/66 132/66 10/11/16 10/11/16 10/11/16 10/11/16 09:53 11:04 14:19 14:38 Temp 98.3 98.3 Pulse 64 66 67 Resp 20 21 B/P (MAP) 102/49 (66) 109/57 (74) 101/49 Pulse Ox 91 90 O2 Delivery Nasal Cannula Room Air Room Air O2 Flow Rate 2.0 10/11/16 10/11/16 10/11/16 10/11/16 14:38 19:30 20:00 21:10 Temp 97.8 97.8 Pulse 67 70 70 Resp 20 B/P (MAP) 101/49 114/50 (71) 114/50 Pulse Ox 93 O2 Delivery Nasal Cannula Nasal Cannula O2 Flow Rate 2.0 2.0 10/11/16 10/11/16 10/11/16 10/11/16 21:11 21:17 22:20 22:50 Temp 97.5 97.5 Pulse 70 69 Resp 18 20 20 B/P (MAP) 114/50 118/54 (75) Pulse Ox 93 92 92 O2 Delivery Nasal Cannula Nasal Cannula Nasal Cannula O2 Flow Rate 2.0 2.0 2.0 10/12/16 10/12/16 10/12/16 10/12/16 00:40 03:00 03:15 03:50 Temp 97.2 97.2 Pulse 62 Resp 20 18 B/P (MAP) 111/56 (74) Pulse Ox 97 98 98 O2 Delivery BiPAP/CPAP BiPAP/CPAP BiPAP/CPAP Nasal Cannula O2 Flow Rate 2.0 10/12/16 10/12/16 04:51 07:00 Temp 98.2 98.2 Pulse 73 Resp 18 17 B/P (MAP) 115/44 (67) Pulse Ox 98 94 O2 Delivery Nasal Cannula Room Air O2 Flow Rate 2.0 Intake and Output 10/11/16 10/11/16 10/12/16 15:00 23:00 07:00 Intake Total 700 ml 840 ml Output Total 300 ml 800 ml Balance 400 ml 40 ml GARETT ALCARAZ MD October 12, 2016 08:54
[2016-10-12] MEDS: CARVEDILOL 12.5 MG TABLET. PO SCH ×2 (08:57→15:33)
[2016-10-12] MEDS: amLODIPine BESYLATE 10 MG TABLET PO SCH (08:57)
[2016-10-12] MEDS: PANTOPRAZOLE 40 MG TABLET.DR. PO SCH (08:58)
[2016-10-12] MEDS: ENOXAPARIN 40 MG/0.4 ML SYRINGE. SQ SCH ×2 (08:58→20:34)
[2016-10-12] MEDS: cloNIDine HCL 0.2 MG TABLET PO SCH ×2 (08:58→20:30)
[2016-10-12] MEDS: FUROSEMIDE 40 MG/4 ML VIAL. IVP SCH (08:59)
[2016-10-12] MEDS: INSULIN ASPART 300 UNITS/3 ML INSULN.PEN SQ SCH ×3 (09:12→17:34)
[2016-10-12] MEDS: TAMSULOSIN 0.4 MG CAP.ER.24H. PO SCH (10:36)
[2016-10-12 10:50] VITALS: BP 138/50
--- NOTE | 2016-10-12 11:23 | PDOC ---
PULMONARY PROGRESS NOTES Subjective NO SOA Vitals Vital Signs Date Time Temp Pulse Resp B/P (MAP) Pulse Ox O2 Delivery O2 Flow Rate FiO2 10/12/16 10:50 98.3 73 20 138/50 (79) 99 Room Air 98.3 10/12/16 04:51 2.0 ROS: No Nausea, No Chest Pain, No Abdominal Pain, No Increase Cough General: Alert, Oriented X4, No acute distress Lungs: Clear Cardiovascular: S1, S2 Abdomen: Soft, Non-tender Neuro Exam: Alert Extremities: No Edema Skin: Warm Labs Laboratory Tests Test 10/10/16 17:18 10/10/16 20:39 10/11/16 03:55 10/11/16 07:57 Glucose (Fingerstick) 229 mg/dL (70-99) 198 mg/dL (70-99) 129 mg/dL (70-99) White Blood Count 8.7 x10^3/uL (4.0-11.0) Red Blood Count 3.09 x10^6/uL (3.50-5.40) Hemoglobin 8.7 g/dL (12.0-15.5) Hematocrit 27.1 % (36.0-47.0) Mean Corpuscular Volume 88 fL (79-100) Mean Corpuscular Hemoglobin 28 pg (25-35) Mean Corpuscular Hemoglobin Concent 32 g/dL (31-37) Red Cell Distribution Width 17.0 % (11.5-14.5) Platelet Count 295 x10^3/uL (140-400) Neutrophils (%) (Auto) 72 % (31-73) Lymphocytes (%) (Auto) 17 % (24-48) Monocytes (%) (Auto) 9 % (0-9) Eosinophils (%) (Auto) 2 % (0-3) Basophils (%) (Auto) 1 % (0-3) Neutrophils # (Auto) 6.3 x10^3uL (1.8-7.7) Lymphocytes # (Auto) 1.4 x10^3/uL (1.0-4.8) Monocytes # (Auto) 0.8 x10^3/uL (0.0-1.1) Eosinophils # (Auto) 0.2 x10^3/uL (0.0-0.7) Basophils # (Auto) 0.1 x10^3/uL (0.0-0.2) Sodium Level 142 mmol/L (136-145) Potassium Level 3.4 mmol/L (3.5-5.1) Chloride Level 102 mmol/L (98-107) Carbon Dioxide Level 31 mmol/L (21-32) Anion Gap 9 (6-14) Blood Urea Nitrogen 33 mg/dL (7-20) Creatinine 2.3 mg/dL (0.6-1.0) Estimated GFR (Cockcroft-Gault) 26.4 Glucose Level 152 mg/dL (70-99) Calcium Level 8.8 mg/dL (8.5-10.1) Test 10/11/16 11:10 10/11/16 16:56 10/11/16 20:46 10/12/16 05:15 Glucose (Fingerstick) 178 mg/dL (70-99) 144 mg/dL (70-99) 96 mg/dL (70-99) White Blood Count 7.8 x10^3/uL (4.0-11.0) Red Blood Count 2.94 x10^6/uL (3.50-5.40) Hemoglobin 8.2 g/dL (12.0-15.5) Hematocrit 25.6 % (36.0-47.0) Mean Corpuscular Volume 87 fL (79-100) Mean Corpuscular Hemoglobin 28 pg (25-35) Mean Corpuscular Hemoglobin Concent 32 g/dL (31-37) Red Cell Distribution Width 17.1 % (11.5-14.5) Platelet Count 287 x10^3/uL (140-400) Neutrophils (%) (Auto) 60 % (31-73) Lymphocytes (%) (Auto) 21 % (24-48) Monocytes (%) (Auto) 10 % (0-9) Eosinophils (%) (Auto) 8 % (0-3) Basophils (%) (Auto) 1 % (0-3) Neutrophils # (Auto) 4.7 x10^3uL (1.8-7.7) Lymphocytes # (Auto) 1.7 x10^3/uL (1.0-4.8) Monocytes # (Auto) 0.8 x10^3/uL (0.0-1.1) Eosinophils # (Auto) 0.6 x10^3/uL (0.0-0.7) Basophils # (Auto) 0.1 x10^3/uL (0.0-0.2) Sodium Level 139 mmol/L (136-145) Potassium Level 3.6 mmol/L (3.5-5.1) Chloride Level 102 mmol/L (98-107) Carbon Dioxide Level 30 mmol/L (21-32) Anion Gap 7 (6-14) Blood Urea Nitrogen 37 mg/dL (7-20) Creatinine 2.4 mg/dL (0.6-1.0) Estimated GFR (Cockcroft-Gault) 25.1 Glucose Level 183 mg/dL (70-99) Calcium Level 8.3 mg/dL (8.5-10.1) Test 10/12/16 07:57 Glucose (Fingerstick) 170 mg/dL (70-99) Laboratory Tests Test 10/11/16 16:56 10/11/16 20:46 10/12/16 05:15 10/12/16 07:57 Glucose (Fingerstick) 144 mg/dL (70-99) 96 mg/dL (70-99) 170 mg/dL (70-99) White Blood Count 7.8 x10^3/uL (4.0-11.0) Red Blood Count 2.94 x10^6/uL (3.50-5.40) Hemoglobin 8.2 g/dL (12.0-15.5) Hematocrit 25.6 % (36.0-47.0) Mean Corpuscular Volume 87 fL (79-100) Mean Corpuscular Hemoglobin 28 pg (25-35) Mean Corpuscular Hemoglobin Concent 32 g/dL (31-37) Red Cell Distribution Width 17.1 % (11.5-14.5) Platelet Count 287 x10^3/uL (140-400) Neutrophils (%) (Auto) 60 % (31-73) Lymphocytes (%) (Auto) 21 % (24-48) Monocytes (%) (Auto) 10 % (0-9) Eosinophils (%) (Auto) 8 % (0-3) Basophils (%) (Auto) 1 % (0-3) Neutrophils # (Auto) 4.7 x10^3uL (1.8-7.7) Lymphocytes # (Auto) 1.7 x10^3/uL (1.0-4.8) Monocytes # (Auto) 0.8 x10^3/uL (0.0-1.1) Eosinophils # (Auto) 0.6 x10^3/uL (0.0-0.7) Basophils # (Auto) 0.1 x10^3/uL (0.0-0.2) Sodium Level 139 mmol/L (136-145) Potassium Level 3.6 mmol/L (3.5-5.1) Chloride Level 102 mmol/L (98-107) Carbon Dioxide Level 30 mmol/L (21-32) Anion Gap 7 (6-14) Blood Urea Nitrogen 37 mg/dL (7-20) Creatinine 2.4 mg/dL (0.6-1.0) Estimated GFR (Cockcroft-Gault) 25.1 Glucose Level 183 mg/dL (70-99) Calcium Level 8.3 mg/dL (8.5-10.1) Medications Active Scripts Medications Dose Route/Sig Max Daily Dose Days Date Category [place] 5-325 Tablet (Acetaminophen/Hydrocodone Bitart) 1 Each Tablet 1-2 Tab PO Q4-6HRS PRN 01/30/16 Rx Tessalon Perle (Benzonatate) 100 Mg Capsule 1 Cap PO TID PRN 01/30/16 Rx Levaquin (Levofloxacin) 750 Mg Tablet 1 Tab PO DAILY 01/30/16 Rx Doxycycline Hyclate 100 Mg Tablet 100 Mg PO BID 10/08/15 Rx Furosemide 80 Mg Tablet 80 Mg PO DAILY 10/08/15 Rx Amlodipine Besylate 10 Mg Tablet 10 Mg PO DAILY 09/27/15 Rx Robaxin (Methocarbamol) 500 Mg Tablet 500 Mg PO HS PRN 09/15/15 Rx Novolog Flexpen (Insulin Aspart) 100 Unit/1 Ml Insuln.pen 10 Units SQ TIDAC 05/27/15 Rx Hydralazine Hcl 50 Mg Tablet 100 Mg PO Q8HRS 05/27/15 Rx Furosemide 40 Mg Tablet 40 Mg PO DAILY 05/27/15 Rx Prednisone 20 Mg Tablet 40 Mg PO DAILY 05/27/15 Rx Atorvastatin Calcium 40 Mg Tablet 1 Tab PO DAILY 05/23/15 Reported Lisinopril 40 Mg Tablet 1 Tab PO DAILY 05/23/15 Reported Omeprazole 40 Mg Capsule.dr 1 Cap PO DAILY 05/23/15 Reported Ventolin Hfa Inhaler (Albuterol Sulfate) 18 Gm Hfa.aer.ad 2 Puff IH PRN Q4-6HRS 05/23/15 Reported Percocet 10-325 Mg Tablet (Oxycodone/Acetaminophen) 1 Each Tablet 1 Tab PO Q4-6HRS 06/10/14 Reported Lantus Solostar (Insulin Glargine,Hum.rec.anlog) 100 Unit/1 Ml Insuln.pen 30 Unit SQ BID 06/10/14 Reported Glipizide 10 Mg Tablet 1 Tab PO BIDAC 06/10/14 Reported Clonidine Hcl 0.2 Mg Tablet 1 Tab PO BID 06/10/14 Reported Coreg (Carvedilol) 25 Mg Tablet 1 Tab PO [id number] 06/10/14 Reported Impression . 1. Acute respiratory failure, multifactorial secondary to acute on chronic heart failure , less likely pneumonia. 2. Doubt pneumonia. 3. Leukocytosis. 4. Hypertension, uncontrolled. 5. Morbid obesity, suspect PRAVEEN 6. COPD Plan . SUSPECT MOSTLY HEART FAILURE CXR IMPROVED WILL NARROW ANTIBX COVERAGE CONTINUE DIURESE PRN BIPAP SS OP GENE COTA MD October 12, 2016 11:23
--- NOTE | 2016-10-12 11:35 | CONS ---
DATE OF CONSULTATION: 10/12/2016 LOCATION: The patient is in room 260. HISTORY OF PRESENT ILLNESS: The patient is a very pleasant 60-year-old female with history of urinary retention. The patient had initially came in with shortness of breath, was found to be in urinary retention by her imaging, which showed a severely distended urinary bladder. The patient also with just a mild bilateral renal pelvic caliectasis and an elevated creatinine of 1.8. The patient had a Vazquez catheter placed. She has had good urine output. Urine is clear. Initial urine did show an occasional red cell, 1-4 white cells and a few bacteria. Blood culture showed no growth. The patient is afebrile, blood pressure 115/44. The patient's creatinine is currently 2.4. The patient was seen in the past by Nephrology for renal failure in the 2 range. The patient does have history of diabetes. The patient normally reports no problems with voiding her bowels. On physical exam, her abdomen is soft. The patient has been having daily bowel movements. The patient has Vazquez catheter to gravity drainage. Urine is grossly clear yellow. The patient never had any urologic operations. She is . She has had prior tubal ligation. ASSESSMENT: Urinary retention and renal failure. PLAN: Keep Vazquez catheter in place, place on Flomax and allow bladder to regain some and have Nephrology see the patient for renal failure and then have the patient follow up with Urology in 2 weeks for a voiding trial. I certainly appreciate being allowed to participate in this patient's care. GARETT ALCARAZ MD DR: ANN/derik JOB#: [id number] / [id number]
--- NOTE | 2016-10-12 11:55 | PDOC ---
PROGRESS NOTES Chief Complaint Chief Complaint 1. Acute respiratory failure, multifactorial secondary to acute on chronic heart failure and possible pneumonia. RESOLVED 2. Possible pneumonia. Cover for both gram-positive and gram-negative organisms. 3. Leukocytosis. 4. Fever. 5. Possible sepsis. 6. Hypertension, uncontrolled. 7. Accelerated hTN POA 8. Hx cOPD 9. CHF diastolic 10. Morbid obesity 11. 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 then ff up OP 2 weeks for voiding trial PAtient does not want to go home with lopez - counselled She claims she "can manage at home" (re retention) RN to show her a leg bag PLAN PO augmentin on dc MAintain lopez Dc iv lasix BMP isma To show her a leg bag - dw RN Vitals Vitals Vital Signs Date Time Temp Pulse Resp B/P (MAP) Pulse Ox O2 Delivery O2 Flow Rate FiO2 10/12/16 10:50 98.3 73 20 138/50 (79) 99 Room Air 98.3 10/12/16 04:51 2.0 Physical Exam General: Alert, Oriented X3, moderate distress, Other (on BiPAP) Heart: Regular rate, No murmurs Lungs: Clear Abdomen: Soft, No tenderness Extremities: Other (trace pedal edema) Skin: No rashes Labs LABS Laboratory Tests Test 10/11/16 16:56 10/11/16 20:46 10/12/16 05:15 10/12/16 07:57 Glucose (Fingerstick) 144 mg/dL (70-99) 96 mg/dL (70-99) 170 mg/dL (70-99) White Blood Count 7.8 x10^3/uL (4.0-11.0) Red Blood Count 2.94 x10^6/uL (3.50-5.40) Hemoglobin 8.2 g/dL (12.0-15.5) Hematocrit 25.6 % (36.0-47.0) Mean Corpuscular Volume 87 fL (79-100) Mean Corpuscular Hemoglobin 28 pg (25-35) Mean Corpuscular Hemoglobin Concent 32 g/dL (31-37) Red Cell Distribution Width 17.1 % (11.5-14.5) Platelet Count 287 x10^3/uL (140-400) Neutrophils (%) (Auto) 60 % (31-73) Lymphocytes (%) (Auto) 21 % (24-48) Monocytes (%) (Auto) 10 % (0-9) Eosinophils (%) (Auto) 8 % (0-3) Basophils (%) (Auto) 1 % (0-3) Neutrophils # (Auto) 4.7 x10^3uL (1.8-7.7) Lymphocytes # (Auto) 1.7 x10^3/uL (1.0-4.8) Monocytes # (Auto) 0.8 x10^3/uL (0.0-1.1) Eosinophils # (Auto) 0.6 x10^3/uL (0.0-0.7) Basophils # (Auto) 0.1 x10^3/uL (0.0-0.2) Sodium Level 139 mmol/L (136-145) Potassium Level 3.6 mmol/L (3.5-5.1) Chloride Level 102 mmol/L (98-107) Carbon Dioxide Level 30 mmol/L (21-32) Anion Gap 7 (6-14) Blood Urea Nitrogen 37 mg/dL (7-20) Creatinine 2.4 mg/dL (0.6-1.0) Estimated GFR (Cockcroft-Gault) 25.1 Glucose Level 183 mg/dL (70-99) Calcium Level 8.3 mg/dL (8.5-10.1) Review of Systems Review of Systems no inc in soa, cp, abd pain, n,v,d Assessment and Plan Assessmemt and Plan Problems Medical Problems: (1) CHF (congestive heart failure) Status: Acute (2) COPD exacerbation Status: Acute (3) Respiratory distress Status: Acute Problems: Comment Review of Relevant I have reviewed the following items jessee (where applicable) has been applied. Labs Laboratory Tests Test 10/10/16 17:18 10/10/16 20:39 10/11/16 03:55 10/11/16 07:57 Glucose (Fingerstick) 229 mg/dL (70-99) 198 mg/dL (70-99) 129 mg/dL (70-99) White Blood Count 8.7 x10^3/uL (4.0-11.0) Red Blood Count 3.09 x10^6/uL (3.50-5.40) Hemoglobin 8.7 g/dL (12.0-15.5) Hematocrit 27.1 % (36.0-47.0) Mean Corpuscular Volume 88 fL (79-100) Mean Corpuscular Hemoglobin 28 pg (25-35) Mean Corpuscular Hemoglobin Concent 32 g/dL (31-37) Red Cell Distribution Width 17.0 % (11.5-14.5) Platelet Count 295 x10^3/uL (140-400) Neutrophils (%) (Auto) 72 % (31-73) Lymphocytes (%) (Auto) 17 % (24-48) Monocytes (%) (Auto) 9 % (0-9) Eosinophils (%) (Auto) 2 % (0-3) Basophils (%) (Auto) 1 % (0-3) Neutrophils # (Auto) 6.3 x10^3uL (1.8-7.7) Lymphocytes # (Auto) 1.4 x10^3/uL (1.0-4.8) Monocytes # (Auto) 0.8 x10^3/uL (0.0-1.1) Eosinophils # (Auto) 0.2 x10^3/uL (0.0-0.7) Basophils # (Auto) 0.1 x10^3/uL (0.0-0.2) Sodium Level 142 mmol/L (136-145) Potassium Level 3.4 mmol/L (3.5-5.1) Chloride Level 102 mmol/L (98-107) Carbon Dioxide Level 31 mmol/L (21-32) Anion Gap 9 (6-14) Blood Urea Nitrogen 33 mg/dL (7-20) Creatinine 2.3 mg/dL (0.6-1.0) Estimated GFR (Cockcroft-Gault) 26.4 Glucose Level 152 mg/dL (70-99) Calcium Level 8.8 mg/dL (8.5-10.1) Test 10/11/16 11:10 10/11/16 16:56 10/11/16 20:46 10/12/16 05:15 Glucose (Fingerstick) 178 mg/dL (70-99) 144 mg/dL (70-99) 96 mg/dL (70-99) White Blood Count 7.8 x10^3/uL (4.0-11.0) Red Blood Count 2.94 x10^6/uL (3.50-5.40) Hemoglobin 8.2 g/dL (12.0-15.5) Hematocrit 25.6 % (36.0-47.0) Mean Corpuscular Volume 87 fL (79-100) Mean Corpuscular Hemoglobin 28 pg (25-35) Mean Corpuscular Hemoglobin Concent 32 g/dL (31-37) Red Cell Distribution Width 17.1 % (11.5-14.5) Platelet Count 287 x10^3/uL (140-400) Neutrophils (%) (Auto) 60 % (31-73) Lymphocytes (%) (Auto) 21 % (24-48) Monocytes (%) (Auto) 10 % (0-9) Eosinophils (%) (Auto) 8 % (0-3) Basophils (%) (Auto) 1 % (0-3) Neutrophils # (Auto) 4.7 x10^3uL (1.8-7.7) Lymphocytes # (Auto) 1.7 x10^3/uL (1.0-4.8) Monocytes # (Auto) 0.8 x10^3/uL (0.0-1.1) Eosinophils # (Auto) 0.6 x10^3/uL (0.0-0.7) Basophils # (Auto) 0.1 x10^3/uL (0.0-0.2) Sodium Level 139 mmol/L (136-145) Potassium Level 3.6 mmol/L (3.5-5.1) Chloride Level 102 mmol/L (98-107) Carbon Dioxide Level 30 mmol/L (21-32) Anion Gap 7 (6-14) Blood Urea Nitrogen 37 mg/dL (7-20) Creatinine 2.4 mg/dL (0.6-1.0) Estimated GFR (Cockcroft-Gault) 25.1 Glucose Level 183 mg/dL (70-99) Calcium Level 8.3 mg/dL (8.5-10.1) Test 10/12/16 07:57 Glucose (Fingerstick) 170 mg/dL (70-99) Laboratory Tests Test 10/11/16 16:56 10/11/16 20:46 10/12/16 05:15 10/12/16 07:57 Glucose (Fingerstick) 144 mg/dL (70-99) 96 mg/dL (70-99) 170 mg/dL (70-99) White Blood Count 7.8 x10^3/uL (4.0-11.0) Red Blood Count 2.94 x10^6/uL (3.50-5.40) Hemoglobin 8.2 g/dL (12.0-15.5) Hematocrit 25.6 % (36.0-47.0) Mean Corpuscular Volume 87 fL (79-100) Mean Corpuscular Hemoglobin 28 pg (25-35) Mean Corpuscular Hemoglobin Concent 32 g/dL (31-37) Red Cell Distribution Width 17.1 % (11.5-14.5) Platelet Count 287 x10^3/uL (140-400) Neutrophils (%) (Auto) 60 % (31-73) Lymphocytes (%) (Auto) 21 % (24-48) Monocytes (%) (Auto) 10 % (0-9) Eosinophils (%) (Auto) 8 % (0-3) Basophils (%) (Auto) 1 % (0-3) Neutrophils # (Auto) 4.7 x10^3uL (1.8-7.7) Lymphocytes # (Auto) 1.7 x10^3/uL (1.0-4.8) Monocytes # (Auto) 0.8 x10^3/uL (0.0-1.1) Eosinophils # (Auto) 0.6 x10^3/uL (0.0-0.7) Basophils # (Auto) 0.1 x10^3/uL (0.0-0.2) Sodium Level 139 mmol/L (136-145) Potassium Level 3.6 mmol/L (3.5-5.1) Chloride Level 102 mmol/L (98-107) Carbon Dioxide Level 30 mmol/L (21-32) Anion Gap 7 (6-14) Blood Urea Nitrogen 37 mg/dL (7-20) Creatinine 2.4 mg/dL (0.6-1.0) Estimated GFR (Cockcroft-Gault) 25.1 Glucose Level 183 mg/dL (70-99) Calcium Level 8.3 mg/dL (8.5-10.1) Microbiology 10/10/16 Blood Culture - Preliminary, Resulted NO GROWTH AFTER 2 DAYS Medications Current Medications Furosemide (Lasix) 40 mg 1X ONCE IVP Last administered on 10/09/16 19:40; Start 10/09/16 at 19:30; Stop 10/09/16 at 19:31; Status DC Fentanyl Citrate (Fentanyl 2ml Vial) 25 mcg PRN Q15MIN PRN IV PAIN GREATER THAN 3/10 Last administered on 10/09/16 19:41; Start 10/09/16 at 19:45; Stop at 23:47; Status DC Nitroglycerin (Nitrostat) 0.4 mg PRN Q5MIN PRN SL CHEST PAIN Last administered on 10/09/16 20:03; Start 10/09/16 at 20:00 Methylprednisolone Sodium Succinate (SOLU-Medrol 40MG VIAL) 40 mg 1X ONCE IV Last administered on 10/09/16 20:57; Start 10/09/16 at 20:45; Stop 10/09/16 at 20:46; Status DC Albuterol/ Ipratropium (Duoneb) 3 ml 1X ONCE NEB Last administered on 20:48; Start 10/09/16 at 20:45; Stop 10/09/16 at 20:46; Status DC Metoprolol Tartrate (Lopressor) 5 mg 1X ONCE IVP Last administered on 21:00; Start 10/09/16 at 20:45; Stop 10/09/16 at 20:46; Status DC Albuterol/ Ipratropium (Duoneb) 3 ml STK-MED ONCE .ROUTE ; Start 10/09/16 at 20: 42; Stop 10/09/16 at 20:43; Status DC Acetaminophen (Tylenol) 650 mg PRN Q6HRS PRN PO MILD PAIN / TEMP Last administered on 10/10/16 01:13; Start 10/10/16 at 00:00 Piperacillin Sod/ Tazobactam Sod 3.375 gm/Sodium Chloride 50 ml @ 100 mls/hr Q6HRS IV Last administered on 10/12/16 05:49; Start 10/10/16 at 00:30; Stop at 11:24; Status DC Vancomycin HCl 1 gm/Sodium Chloride 250 ml @ 250 mls/hr Q12H IV ; Start at 00:00; Status UNV Vancomycin HCl (Vanco Per Pharmacy) 1 each PRN DAILY PRN MC SEE COMMENTS Last administered on 10/10/16 09:57; Start 10/10/16 at 00:15; Stop 10/11/16 at 11:09 ; Status DC Vancomycin HCl 2 gm/Sodium Chloride 500 ml @ 250 mls/hr 1X ONCE IV Last administered on 10/10/16 01:13; Start 10/10/16 at 01:00; Stop 10/10/16 at 02:59 ; Status DC Vancomycin HCl 2 gm/Sodium Chloride 500 ml @ 250 mls/hr Q24H IV Last administered on 10/10/16 02:50; Start 10/11/16 at 01:00; Stop 10/11/16 at 11:02 ; Status DC Vancomycin HCl 1 each 1X ONCE MC ; Start 10/12/16 at 00:30; Stop 10/12/16 at 00 :30; Status DC Furosemide (Lasix) 40 mg DAILY IVP Last administered on 10/12/16 08:59; Start 10/10/16 at 09:00 Enoxaparin Sodium (Lovenox 30mg Syringe) 30 mg Q24H SQ ; Start 10/10/16 at 08:00 ; Stop 10/10/16 at 08:00; Status DC Enoxaparin Sodium (Lovenox 40mg Syringe) 40 mg Q24H SQ Last administered on 09:46; Start 10/10/16 at 08:00; Stop 10/10/16 at 09:46; Status DC Enoxaparin Sodium (Lovenox 40mg Syringe) 40 mg Q12H SQ Last administered on 08:58; Start 10/10/16 at 10:00 Pneumococcal Polyvalent Vaccine (Do NOT chart on this placeholder) 1 each 1X ONCE MC ; Start 10/10/16 at 11:00; Stop 10/10/16 at 11:01; Status UNV Pneumococcal Polyvalent Vaccine (Pneumovax 23) 0.5 ml ONCE ONCE VAX IM ; Start 10/10/16 at 13:00; Stop 10/10/16 at 13:01; Status DC Amlodipine Besylate (Norvasc) 10 mg DAILY PO Last administered on 10/12/16 08: 57; Start 10/10/16 at 15:00 Atorvastatin Calcium (Lipitor) 40 mg QHS PO Last administered on 10/11/16 21: 10; Start 10/10/16 at 21:00 Benzonatate (Tessalon Perle) 100 mg PRN TID PRN PO COUGH Last administered on 21:09; Start 10/10/16 at 14:30 Clonidine HCl (Catapres) 0.2 mg BID PO Last administered on 10/12/16 08:58; Start 10/10/16 at 15:00 Hydralazine HCl (Apresoline) 50 mg TID PO Last administered on 10/12/16 08:57 ; Start 10/10/16 at 15:00 Acetaminophen/ Hydrocodone Bitart (Lortab 5/325) 1 tab PRN Q4HRS PRN PO SEVERE PAIN Last administered on 10/12/16 03:50; Start 10/10/16 at 14:30 Insulin Aspart (NovoLOG) 10 units TIDAC SQ Last administered on 10/12/16 09:12 ; Start 10/10/16 at 16:30 Albuterol Sulfate (Ventolin Neb Soln) 2.5 mg PRN Q4HRS PRN NEB SOA; Start 10/10 at 14:45 Carvedilol (Coreg) 25 mg [id number] PO Last administered on 10/12/16 08:57; Start 10/10/16 at 15:00 Pantoprazole Sodium (Protonix) 40 mg DAILYAC PO Last administered on 10/12/16 08:58; Start 10/10/16 at 15:00 Acetaminophen/ Hydrocodone Bitart (Lortab 5/325) 2 tab PRN Q4HRS PRN PO SEVERE PAIN Last administered on 10/12/16 08:56; Start 10/10/16 at 14:45 Insulin Detemir (Levemir) 30 units BID SQ ; Start 10/10/16 at 21:00; Stop at 22:24; Status DC Insulin Detemir (Levemir) 29 units HS SQ Last administered on 10/10/16 22:47; Start 10/10/16 at 23:00 Tamsulosin HCl (Flomax) 0.4 mg DAILY PO Last administered on 10/12/16 10:36; Start 10/12/16 at 09:30 Amoxicillin/ Clavulanate Potassium (Augmentin 875/ 125mg) 1 tab BID PO ; Start 10/12/16 at 12:00 Active Scripts Active Bly 5-325 Tablet (Acetaminophen/Hydrocodone Bitart) 1 Each Tablet 1-2 Tab PO Q4-6HRS PRN Tessalon Perle (Benzonatate) 100 Mg Capsule 1 Cap PO TID PRN Levaquin (Levofloxacin) 750 Mg Tablet 1 Tab PO DAILY Doxycycline Hyclate 100 Mg Tablet 100 Mg PO BID Furosemide 80 Mg Tablet 80 Mg PO DAILY Amlodipine Besylate 10 Mg Tablet 10 Mg PO DAILY Robaxin (Methocarbamol) 500 Mg Tablet 500 Mg PO HS PRN Novolog Flexpen (Insulin Aspart) 100 Unit/1 Ml Insuln.pen 10 Units SQ TIDAC Hydralazine Hcl 50 Mg Tablet 100 Mg PO Q8HRS Furosemide 40 Mg Tablet 40 Mg PO DAILY Prednisone 20 Mg Tablet 40 Mg PO DAILY Reported Wang Recinosostar (Insulin Glargine,Hum.rec.anlog) 300 Unit/1 Ml Insuln.pen 36 Unit SQ HS Isosorbide Mononitrate Er (Isosorbide Mononitrate) 30 Mg Tab.er.24h 30 Mg PO TID Gabapentin 300 Mg Capsule 300 Mg PO BID Sertraline Hcl 50 Mg Tablet 50 Mg PO DAILY Metformin Hcl 1,000 Mg Tablet 1,000 Mg PO [id number] Atorvastatin Calcium 40 Mg Tablet 1 Tab PO DAILY Lisinopril 40 Mg Tablet 1 Tab PO DAILY Omeprazole 40 Mg Capsule.dr 1 Cap PO DAILY Ventolin Hfa Inhaler (Albuterol Sulfate) 18 Gm Hfa.aer.ad 2 Puff IH PRN Q4-6HRS Percocet 10-325 Mg Tablet (Oxycodone/Acetaminophen) 1 Each Tablet 1 Tab PO Q4- 6HRS Glipizide 10 Mg Tablet 1 Tab PO BIDAC Clonidine Hcl 0.2 Mg Tablet 1 Tab PO BID Coreg (Carvedilol) 25 Mg Tablet 1 Tab PO BID92 Vitals/I & O Vital Sign - Last 24 Hours 10/11/16 10/11/16 10/11/16 10/11/16 14:19 14:38 14:38 19:30 Temp 97.8 97.8 Pulse 66 67 67 70 Resp 21 20 B/P (MAP) 109/57 (74) 101/49 101/49 114/50 (71) Pulse Ox 90 93 O2 Delivery Room Air Nasal Cannula O2 Flow Rate 2.0 10/11/16 10/11/16 10/11/16 10/11/16 20:00 21:10 21:11 21:17 Pulse 70 70 Resp 18 B/P (MAP) 114/50 114/50 Pulse Ox 93 O2 Delivery Nasal Cannula Nasal Cannula O2 Flow Rate 2.0 2.0 10/11/16 10/11/16 10/12/16 10/12/16 22:20 22:50 00:40 03:00 Temp 97.5 97.5 Pulse 69 Resp 20 20 B/P (MAP) 118/54 (75) Pulse Ox 92 92 97 O2 Delivery Nasal Cannula BiPAP/CPAP BiPAP/CPAP O2 Flow Rate 2.0 2.0 10/12/16 10/12/16 10/12/16 10/12/16 03:15 03:50 04:51 07:00 Temp 97.2 98.2 97.2 98.2 Pulse 62 73 Resp 20 18 18 17 B/P (MAP) 111/56 (74) 115/44 (67) Pulse Ox 98 98 98 94 O2 Delivery BiPAP/CPAP Nasal Cannula Nasal Cannula Room Air O2 Flow Rate 2.0 2.0 10/12/16 10/12/16 10/12/16 10/12/16 08:00 08:56 08:57 08:57 Pulse 73 73 B/P (MAP) 115/44 115/44 O2 Delivery Room Air Room Air 10/12/16 10/12/16 10/12/16 10/12/16 08:57 08:58 09:56 10:50 Temp 98.3 98.3 Pulse 73 73 73 Resp 20 B/P (MAP) 115/44 115/44 138/50 (79) Pulse Ox 99 O2 Delivery Room Air Room Air Intake and Output 10/11/16 10/11/16 10/12/16 15:00 23:00 07:00 Intake Total 700 ml 840 ml Output Total 300 ml 800 ml Balance 400 ml 40 ml ASAD BRAGA MD October 12, 2016 11:55
[2016-10-12] MEDS: AMOXICILLIN/K CLAV 875/125MG TABLET. PO SCH ×2 (12:09→20:30)
--- NOTE | 2016-10-12 13:43 | PDOC ---
CARDIO Progress Notes Date and Time Date of Service 10/12/16 Time of Evaluation 1245 Subjective Subjective: No Chest Pain, No Palpitations, Other (mild SOA ) Vitals Vitals Vital Signs Date Time Temp Pulse Resp B/P (MAP) Pulse Ox O2 Delivery O2 Flow Rate FiO2 10/12/16 13:02 Room Air 10/12/16 11:56 96 10/12/16 10:50 98.3 73 20 138/50 (79) 98.3 10/12/16 04:51 2.0 Weight Weight [ ] Input and Output Intake and Output Intake and Output 10/12/16 07:00 Intake Total 1540 ml Output Total 1100 ml Balance 440 ml Intake Oral 1540 ml Output Urine Total 1100 ml Laboratory Labs Laboratory Tests Test 10/11/16 16:56 10/11/16 20:46 10/12/16 05:15 10/12/16 07:57 Glucose (Fingerstick) 144 mg/dL (70-99) 96 mg/dL (70-99) 170 mg/dL (70-99) White Blood Count 7.8 x10^3/uL (4.0-11.0) Red Blood Count 2.94 x10^6/uL (3.50-5.40) Hemoglobin 8.2 g/dL (12.0-15.5) Hematocrit 25.6 % (36.0-47.0) Mean Corpuscular Volume 87 fL (79-100) Mean Corpuscular Hemoglobin 28 pg (25-35) Mean Corpuscular Hemoglobin Concent 32 g/dL (31-37) Red Cell Distribution Width 17.1 % (11.5-14.5) Platelet Count 287 x10^3/uL (140-400) Neutrophils (%) (Auto) 60 % (31-73) Lymphocytes (%) (Auto) 21 % (24-48) Monocytes (%) (Auto) 10 % (0-9) Eosinophils (%) (Auto) 8 % (0-3) Basophils (%) (Auto) 1 % (0-3) Neutrophils # (Auto) 4.7 x10^3uL (1.8-7.7) Lymphocytes # (Auto) 1.7 x10^3/uL (1.0-4.8) Monocytes # (Auto) 0.8 x10^3/uL (0.0-1.1) Eosinophils # (Auto) 0.6 x10^3/uL (0.0-0.7) Basophils # (Auto) 0.1 x10^3/uL (0.0-0.2) Sodium Level 139 mmol/L (136-145) Potassium Level 3.6 mmol/L (3.5-5.1) Chloride Level 102 mmol/L (98-107) Carbon Dioxide Level 30 mmol/L (21-32) Anion Gap 7 (6-14) Blood Urea Nitrogen 37 mg/dL (7-20) Creatinine 2.4 mg/dL (0.6-1.0) Estimated GFR (Cockcroft-Gault) 25.1 Glucose Level 183 mg/dL (70-99) Calcium Level 8.3 mg/dL (8.5-10.1) Test 10/12/16 12:11 Glucose (Fingerstick) 197 mg/dL (70-99) Microbiology Micro Microbiology 10/10/16 Blood Culture - Preliminary, Resulted NO GROWTH AFTER 2 DAYS Physical Exam HEENT: Neck Supple W Full Motion Chest: Symmetric LUNGS: Other (diminished bases ) Heart: S1S2, RRR Abdomen: Soft N/T, Other (obese ) Extremities: Other (trace LE edema ) Neurology: alert, oriented, follow commands, other (drowsy ) Assessment Assessment Acute on chronic diastolic heart failure improved with diuresis echo 09/28 showed LVEF 55-60% will repeat to assess LV function Iv Lasix discontinued due to rising CR. Resume oral Lasix and monitor renal function 2. Acute hypoxic respiratory failure multifactorial per pulmonary 3. Accelerated hypertension controlled with meds 4. Hyperlipidemia statin therapy 5. Diabetes mellitus per PCP 6. MARY with CKD monitor closely 7. urinary retention per urology SAM WELSH APRN October 12, 2016 13:43
[2016-10-12 15:04] VITALS: BP 147/64
[2016-10-12] MEDS: FUROSEMIDE 40 MG TABLET. PO SCH (17:31)
--- NOTE | 2016-10-12 18:06 | PDOC2 ---
CONSULT Date of Consult Date of Consult DATE: 10/12/16 TIME: 18:02 Reason for Consult Reason for Consult: MARY/ CKD III Referring Physician Referring Physician: Rickie Identification/Chief Complaint Chief Complaint SOB/ CHF exac Problems: Source Source: Chart review, Patient History of Present Illness Reason for Visit: as dictated Past Medical History Cardiovascular: CAD, CHF, HTN, Hyperlipidemia Pulmonary: COPD Heme/Onc: Anemia NOS Psych: Anxiety Musculoskeletal: Osteoarthritis Endocrine: Other Past Surgical History Past Surgical History: Tonsillectomy, Other Family History Family History: Hypertension Social History 1 pack per day ALCOHOL: none Lives: with Family Current Problem List Problem List Problems Medical Problems: (1) CHF (congestive heart failure) Status: Acute (2) COPD exacerbation Status: Acute (3) Respiratory distress Status: Acute Current Medications Current Medications Current Medications Furosemide (Lasix) 40 mg 1X ONCE IVP Last administered on 10/09/16 19:40; Start 10/09/16 at 19:30; Stop 10/09/16 at 19:31; Status DC Fentanyl Citrate (Fentanyl 2ml Vial) 25 mcg PRN Q15MIN PRN IV PAIN GREATER THAN 3/10 Last administered on 10/09/16 19:41; Start 10/09/16 at 19:45; Stop at 23:47; Status DC Nitroglycerin (Nitrostat) 0.4 mg PRN Q5MIN PRN SL CHEST PAIN Last administered on 10/09/16 20:03; Start 10/09/16 at 20:00 Methylprednisolone Sodium Succinate (SOLU-Medrol 40MG VIAL) 40 mg 1X ONCE IV Last administered on 10/09/16 20:57; Start 10/09/16 at 20:45; Stop 10/09/16 at 20:46; Status DC Albuterol/ Ipratropium (Duoneb) 3 ml 1X ONCE NEB Last administered on 20:48; Start 10/09/16 at 20:45; Stop 10/09/16 at 20:46; Status DC Metoprolol Tartrate (Lopressor) 5 mg 1X ONCE IVP Last administered on 21:00; Start 10/09/16 at 20:45; Stop 10/09/16 at 20:46; Status DC Albuterol/ Ipratropium (Duoneb) 3 ml STK-MED ONCE .ROUTE ; Start 10/09/16 at 20: 42; Stop 10/09/16 at 20:43; Status DC Acetaminophen (Tylenol) 650 mg PRN Q6HRS PRN PO MILD PAIN / TEMP Last administered on 10/10/16 01:13; Start 10/10/16 at 00:00 Piperacillin Sod/ Tazobactam Sod 3.375 gm/Sodium Chloride 50 ml @ 100 mls/hr Q6HRS IV Last administered on 10/12/16 05:49; Start 10/10/16 at 00:30; Stop at 11:24; Status DC Vancomycin HCl 1 gm/Sodium Chloride 250 ml @ 250 mls/hr Q12H IV ; Start at 00:00; Status UNV Vancomycin HCl (Vanco Per Pharmacy) 1 each PRN DAILY PRN MC SEE COMMENTS Last administered on 10/10/16 09:57; Start 10/10/16 at 00:15; Stop 10/11/16 at 11:09 ; Status DC Vancomycin HCl 2 gm/Sodium Chloride 500 ml @ 250 mls/hr 1X ONCE IV Last administered on 10/10/16 01:13; Start 10/10/16 at 01:00; Stop 10/10/16 at 02:59 ; Status DC Vancomycin HCl 2 gm/Sodium Chloride 500 ml @ 250 mls/hr Q24H IV Last administered on 10/10/16 02:50; Start 10/11/16 at 01:00; Stop 10/11/16 at 11:02 ; Status DC Vancomycin HCl 1 each 1X ONCE MC ; Start 10/12/16 at 00:30; Stop 10/12/16 at 00 :30; Status DC Furosemide (Lasix) 40 mg DAILY IVP Last administered on 10/12/16 08:59; Start 10/10/16 at 09:00; Stop 10/12/16 at 11:50; Status DC Enoxaparin Sodium (Lovenox 30mg Syringe) 30 mg Q24H SQ ; Start 10/10/16 at 08:00 ; Stop 10/10/16 at 08:00; Status DC Enoxaparin Sodium (Lovenox 40mg Syringe) 40 mg Q24H SQ Last administered on 09:46; Start 10/10/16 at 08:00; Stop 10/10/16 at 09:46; Status DC Enoxaparin Sodium (Lovenox 40mg Syringe) 40 mg Q12H SQ Last administered on 08:58; Start 10/10/16 at 10:00 Pneumococcal Polyvalent Vaccine (Do NOT chart on this placeholder) 1 each 1X ONCE MC ; Start 10/10/16 at 11:00; Stop 10/10/16 at 11:01; Status UNV Pneumococcal Polyvalent Vaccine (Pneumovax 23) 0.5 ml ONCE ONCE VAX IM ; Start 10/10/16 at 13:00; Stop 10/10/16 at 13:01; Status DC Amlodipine Besylate (Norvasc) 10 mg DAILY PO Last administered on 10/12/16 08: 57; Start 10/10/16 at 15:00 Atorvastatin Calcium (Lipitor) 40 mg QHS PO Last administered on 10/11/16 21: 10; Start 10/10/16 at 21:00 Benzonatate (Tessalon Perle) 100 mg PRN TID PRN PO COUGH Last administered on 21:09; Start 10/10/16 at 14:30 Clonidine HCl (Catapres) 0.2 mg BID PO Last administered on 10/12/16 08:58; Start 10/10/16 at 15:00 Hydralazine HCl (Apresoline) 50 mg TID PO Last administered on 10/12/16 15:32 ; Start 10/10/16 at 15:00 Acetaminophen/ Hydrocodone Bitart (Lortab 5/325) 1 tab PRN Q4HRS PRN PO SEVERE PAIN Last administered on 10/12/16 13:02; Start 10/10/16 at 14:30 Insulin Aspart (NovoLOG) 10 units TIDAC SQ Last administered on 10/12/16 17:34 ; Start 10/10/16 at 16:30 Albuterol Sulfate (Ventolin Neb Soln) 2.5 mg PRN Q4HRS PRN NEB SOA; Start 10/10 at 14:45 Carvedilol (Coreg) 25 mg BID92 PO Last administered on 10/12/16 15:33; Start 10/10/16 at 15:00 Pantoprazole Sodium (Protonix) 40 mg DAILYAC PO Last administered on 10/12/16 08:58; Start 10/10/16 at 15:00 Acetaminophen/ Hydrocodone Bitart (Lortab 5/325) 2 tab PRN Q4HRS PRN PO SEVERE PAIN Last administered on 10/12/16 08:56; Start 10/10/16 at 14:45 Insulin Detemir (Levemir) 30 units BID SQ ; Start 10/10/16 at 21:00; Stop at 22:24; Status DC Insulin Detemir (Levemir) 29 units HS SQ Last administered on 10/10/16 22:47; Start 10/10/16 at 23:00 Tamsulosin HCl (Flomax) 0.4 mg DAILY PO Last administered on 10/12/16 10:36; Start 10/12/16 at 09:30 Amoxicillin/ Clavulanate Potassium (Augmentin 875/ 125mg) 1 tab BID PO Last administered on 10/12/16 12:09; Start 10/12/16 at 12:00 Furosemide (Lasix) 40 mg DAILY PO Last administered on 10/12/16 17:31; Start 10/12/16 at 17:00 Active Scripts Active [place] 5-325 Tablet (Acetaminophen/Hydrocodone Bitart) 1 Each Tablet 1-2 Tab PO Q4-6HRS PRN Tessalon Perle (Benzonatate) 100 Mg Capsule 1 Cap PO TID PRN Levaquin (Levofloxacin) 750 Mg Tablet 1 Tab PO DAILY Doxycycline Hyclate 100 Mg Tablet 100 Mg PO BID Furosemide 80 Mg Tablet 80 Mg PO DAILY Amlodipine Besylate 10 Mg Tablet 10 Mg PO DAILY Robaxin (Methocarbamol) 500 Mg Tablet 500 Mg PO HS PRN Novolog Flexpen (Insulin Aspart) 100 Unit/1 Ml Insuln.pen 10 Units SQ TIDAC Hydralazine Hcl 50 Mg Tablet 100 Mg PO Q8HRS Furosemide 40 Mg Tablet 40 Mg PO DAILY Prednisone 20 Mg Tablet 40 Mg PO DAILY Reported Wang Hummel (Insulin Glargine,Hum.rec.anlog) 300 Unit/1 Ml Insuln.pen 36 Unit SQ HS Isosorbide Mononitrate Er (Isosorbide Mononitrate) 30 Mg Tab.er.24h 30 Mg PO TID Gabapentin 300 Mg Capsule 300 Mg PO BID Sertraline Hcl 50 Mg Tablet 50 Mg PO DAILY Metformin Hcl 1,000 Mg Tablet 1,000 Mg PO [id number] Atorvastatin Calcium 40 Mg Tablet 1 Tab PO DAILY Lisinopril 40 Mg Tablet 1 Tab PO DAILY Omeprazole 40 Mg Capsule.dr 1 Cap PO DAILY Ventolin Hfa Inhaler (Albuterol Sulfate) 18 Gm Hfa.aer.ad 2 Puff IH PRN Q4-6HRS Percocet 10-325 Mg Tablet (Oxycodone/Acetaminophen) 1 Each Tablet 1 Tab PO Q4- 6HRS Glipizide 10 Mg Tablet 1 Tab PO BIDAC Clonidine Hcl 0.2 Mg Tablet 1 Tab PO BID Coreg (Carvedilol) 25 Mg Tablet 1 Tab PO BID92 Allergies Allergies: Coded Allergies: No Known Drug Allergies (Unverified , 06/10/14) ROS Review of System GEN: no Fevers no Chills EYES: no Visual Complaints ENT: no EN Drainage no Hearing deficiets CVS: no Orthopnea no CP RESP: + SOB + MORLEY GI: no Nausea no Vomiting : no Dysuria no Urgency HEME: no easy bruising no Palp Ly Nodes NEURO no Focal Weakness no Sz PSYCH: no Suicidal Ideation ? Depression SKIN: no Rashes ENDO: no Polyuria or Polydipsia no Hot/Cold Intolerance MU SK: Occ Arthraigia no Myalgia Physical Exam Physical Exam General Appearance: Awake Alert Oriented x 3 In no Distress Eyes: VIsion Unchanged Conjunctiva Normal EN: No EN Drainage Mucous Memb. moist Neck: no JVD min JVP Supple no Thyromegaly CVS: S1 S2 + Murmur No Gallop No Rub + Edema Resp: no Rales no Rhonchi no Acc. Muscle use; distal BS GI: BAS +ve NO Bruit Non Tender Non Distended : no CVA tenderness; no Suprapubic Tenderness SKIN: no Rashes Breast Exam deferred Mu.Sk: Adequate ROM no Muscle Atrophy Heme: Unable to palpate Obvious LAD no palp Splenomegaly NEURO: Good Strength and Tone Cranial Nerves II - XII grossly intact Psych: ? Depressed; flattish affect no Active hallucination Vital Signs Vital Signs Date Time Temp Pulse Resp B/P (MAP) Pulse Ox O2 Delivery O2 Flow Rate FiO2 10/12/16 15:33 71 147/64 10/12/16 15:04 98.2 19 100 Room Air 98.2 5/30/17 04:51 2.0 Assessment & Plan ARF (? ATN) - due to better BP Control, Diuresis, h/o monoclonal Gammopahty. Current FLuid and E-lyte status does not necessitate emergent need for Dialysis. Will re-evaluate for Dialysis in am CKD III - DM/ HTnsive / NS Anemia: was Fe def in the past. may need Epogen; Transfuse as needed; ? part of Monoclonal gammopahty - will consult Dr Alicia. Previous B12 was low too. HTN: Now better controlled; Current BP meds reviewed. See orders for changes. Fl Overload - gentle Diuresis to maintain resp status. Aggressive Diuresis in settingof Paraprotein may ppt MARY Protienruia - requantitate with ratio; restart CYDNEY-i when creat stabllizes (? was she not taking it at home) Left Adrenal nodule - can check Renin/Elliot levels Obesity, DM and Adrenal Nodule - will check 24-hr for Cortisol. If Low it may be due to Prednisone (as per home med list) , if high it may need Discussed Plan of Care and prognosis etc. at length with pt Labs Labs Laboratory Tests Test 10/10/16 20:39 10/11/16 03:55 10/11/16 07:57 10/11/16 11:10 Glucose (Fingerstick) 198 mg/dL (70-99) 129 mg/dL (70-99) 178 mg/dL (70-99) White Blood Count 8.7 x10^3/uL (4.0-11.0) Red Blood Count 3.09 x10^6/uL (3.50-5.40) Hemoglobin 8.7 g/dL (12.0-15.5) Hematocrit 27.1 % (36.0-47.0) Mean Corpuscular Volume 88 fL (79-100) Mean Corpuscular Hemoglobin 28 pg (25-35) Mean Corpuscular Hemoglobin Concent 32 g/dL (31-37) Red Cell Distribution Width 17.0 % (11.5-14.5) Platelet Count 295 x10^3/uL (140-400) Neutrophils (%) (Auto) 72 % (31-73) Lymphocytes (%) (Auto) 17 % (24-48) Monocytes (%) (Auto) 9 % (0-9) Eosinophils (%) (Auto) 2 % (0-3) Basophils (%) (Auto) 1 % (0-3) Neutrophils # (Auto) 6.3 x10^3uL (1.8-7.7) Lymphocytes # (Auto) 1.4 x10^3/uL (1.0-4.8) Monocytes # (Auto) 0.8 x10^3/uL (0.0-1.1) Eosinophils # (Auto) 0.2 x10^3/uL (0.0-0.7) Basophils # (Auto) 0.1 x10^3/uL (0.0-0.2) Sodium Level 142 mmol/L (136-145) Potassium Level 3.4 mmol/L (3.5-5.1) Chloride Level 102 mmol/L (98-107) Carbon Dioxide Level 31 mmol/L (21-32) Anion Gap 9 (6-14) Blood Urea Nitrogen 33 mg/dL (7-20) Creatinine 2.3 mg/dL (0.6-1.0) Estimated GFR (Cockcroft-Gault) 26.4 Glucose Level 152 mg/dL (70-99) Calcium Level 8.8 mg/dL (8.5-10.1) Test 10/11/16 16:56 10/11/16 20:46 10/12/16 05:15 10/12/16 07:57 Glucose (Fingerstick) 144 mg/dL (70-99) 96 mg/dL (70-99) 170 mg/dL (70-99) White Blood Count 7.8 x10^3/uL (4.0-11.0) Red Blood Count 2.94 x10^6/uL (3.50-5.40) Hemoglobin 8.2 g/dL (12.0-15.5) Hematocrit 25.6 % (36.0-47.0) Mean Corpuscular Volume 87 fL (79-100) Mean Corpuscular Hemoglobin 28 pg (25-35) Mean Corpuscular Hemoglobin Concent 32 g/dL (31-37) Red Cell Distribution Width 17.1 % (11.5-14.5) Platelet Count 287 x10^3/uL (140-400) Neutrophils (%) (Auto) 60 % (31-73) Lymphocytes (%) (Auto) 21 % (24-48) Monocytes (%) (Auto) 10 % (0-9) Eosinophils (%) (Auto) 8 % (0-3) Basophils (%) (Auto) 1 % (0-3) Neutrophils # (Auto) 4.7 x10^3uL (1.8-7.7) Lymphocytes # (Auto) 1.7 x10^3/uL (1.0-4.8) Monocytes # (Auto) 0.8 x10^3/uL (0.0-1.1) Eosinophils # (Auto) 0.6 x10^3/uL (0.0-0.7) Basophils # (Auto) 0.1 x10^3/uL (0.0-0.2) Sodium Level 139 mmol/L (136-145) Potassium Level 3.6 mmol/L (3.5-5.1) Chloride Level 102 mmol/L (98-107) Carbon Dioxide Level 30 mmol/L (21-32) Anion Gap 7 (6-14) Blood Urea Nitrogen 37 mg/dL (7-20) Creatinine 2.4 mg/dL (0.6-1.0) Estimated GFR (Cockcroft-Gault) 25.1 Glucose Level 183 mg/dL (70-99) Calcium Level 8.3 mg/dL (8.5-10.1) Test 10/12/16 12:11 10/12/16 17:07 Glucose (Fingerstick) 197 mg/dL (70-99) 152 mg/dL (70-99) Laboratory Tests Test 10/11/16 20:46 10/12/16 05:15 10/12/16 07:57 10/12/16 12:11 Glucose (Fingerstick) 96 mg/dL (70-99) 170 mg/dL (70-99) 197 mg/dL (70-99) White Blood Count 7.8 x10^3/uL (4.0-11.0) Red Blood Count 2.94 x10^6/uL (3.50-5.40) Hemoglobin 8.2 g/dL (12.0-15.5) Hematocrit 25.6 % (36.0-47.0) Mean Corpuscular Volume 87 fL (79-100) Mean Corpuscular Hemoglobin 28 pg (25-35) Mean Corpuscular Hemoglobin Concent 32 g/dL (31-37) Red Cell Distribution Width 17.1 % (11.5-14.5) Platelet Count 287 x10^3/uL (140-400) Neutrophils (%) (Auto) 60 % (31-73) Lymphocytes (%) (Auto) 21 % (24-48) Monocytes (%) (Auto) 10 % (0-9) Eosinophils (%) (Auto) 8 % (0-3) Basophils (%) (Auto) 1 % (0-3) Neutrophils # (Auto) 4.7 x10^3uL (1.8-7.7) Lymphocytes # (Auto) 1.7 x10^3/uL (1.0-4.8) Monocytes # (Auto) 0.8 x10^3/uL (0.0-1.1) Eosinophils # (Auto) 0.6 x10^3/uL (0.0-0.7) Basophils # (Auto) 0.1 x10^3/uL (0.0-0.2) Sodium Level 139 mmol/L (136-145) Potassium Level 3.6 mmol/L (3.5-5.1) Chloride Level 102 mmol/L (98-107) Carbon Dioxide Level 30 mmol/L (21-32) Anion Gap 7 (6-14) Blood Urea Nitrogen 37 mg/dL (7-20) Creatinine 2.4 mg/dL (0.6-1.0) Estimated GFR (Cockcroft-Gault) 25.1 Glucose Level 183 mg/dL (70-99) Calcium Level 8.3 mg/dL (8.5-10.1) Test 10/12/16 17:07 Glucose (Fingerstick) 152 mg/dL (70-99) Images Images recent CT Abd: There is scattered atherosclerotic calcification of the abdominal aorta and iliac arteries. There may be 1.3 cm left adrenal nodule, somewhat difficult to characterize given motion. There is degenerative disc disease L5-S1. Impression: 1. There is moderate to severe distention of urinary bladder. There is mild bilateral renal pelviectasis. 2. Appendix caliber is somewhat prominent 0.8 cm although no significant adjacent inflammatory time change, correlation with laboratory and clinical findings advised. 3. There is diffuse anasarca. There is likely some groundglass density of the lung parenchyma which could be due to edema, also atelectasis. 4. There are some nonspecific inguinal lymph nodes considered somewhat prominent on the left. RAFAEL VELIZ MD October 12, 2016 18:06
[2016-10-12] MEDS ORDERED: MAGNESIUM SULFATE 2GM 50 ML IV PRN (18:15)
[2016-10-12 19:25] LABS: % SAT IRON 7 % (15-34); IRON,SERUM 20 ug/dL (50-170)
[2016-10-12 19:50] VITALS: BP_SYST 142; BP_SYST 159; BP_DIAS 69; BP_DIAS 77
[2016-10-12] MEDS: ATORVASTATIN CALCIUM 40 MG TABLET. PO SCH (20:30)
[2016-10-12] MEDS: BENZONATATE 100 MG CAPSULE. PO PRN (20:32)
[2016-10-12 23:30] VITALS: BP 152/54
[2016-10-13] MEDS: INSULIN DETEMIR 300 UNITS/3 ML INSULN.PEN. SQ SCH ×2 (00:05→21:00)
[2016-10-13] MEDS: HYDROcodone/APAP 5/325MG 1 TAB TABLET PO PRN ×4 (01:20→20:06)
--- NOTE | 2016-10-13 01:48 | CONS ---
DATE OF CONSULTATION: PRIMARY PHYSICIAN: Dr. Damian. REASON FOR CONSULTATION: Elevated creatinine. HISTORY OF PRESENT ILLNESS: The patient a 60-year-old -[place] female with a history of COPD, CHF, pulmonary hypertension, and continued tobacco use. She was here approximately a year ago. She has not followed up with us thereafter. She was noted to have B12 deficiency, iron deficiency, and vitamin D deficiency at that time. She thereafter has established care at and was going there for all her care. She claims that she was getting IV infusions to keep the fluid off; however, she stopped going there after some time. 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 The patient developed increasing shortness of breath and presented to the ER for further evaluation. She was diuresed, whereby her creatinine went up from 1.8 up to 2.4. She was also noted to have urinary retention. A Vazquez was placed. She initially presented with blood pressures in the 200s and now, her blood pressures are better controlled. Due to all this, we were asked to see her for further evaluation of her renal insufficiency. She is known to be diabetic for 20 years without known diabetic retinopathy. She is noted to have approximately 2 grams of protein in her urine on a previous 24-hour urine collection. She has been seen by Dr. Otoole for her urinary retention. A voiding trial has been planned for [address] For rest of details, see electronic records. RAFAEL VELIZ MD DR: ISABELA/derik JOB#: [id number] / [id number]
[2016-10-13 03:10] VITALS: BP 139/62
[2016-10-13 04:37] LABS: ALBUMIN 2.3 g/dL (3.4-5.0); CALCIUM 8.2 mg/dL (8.5-10.1); CREATININE 2.3 mg/dL (0.6-1.0); GFR 26.4; MAGNESIUM 1.8 mg/dL (1.8-2.4); PHOSPHORUS 4.4 mg/dL (2.6-4.7); POTASSIUM 3.4 mmol/L (3.5-5.1)
[2016-10-13 04:46] LABS: CHOLESTEROL/HDL RATIO 3.2
[2016-10-13 07:00] VITALS: BP 128/71
[2016-10-13] MEDS: PANTOPRAZOLE 40 MG TABLET.DR. PO SCH (08:29)
[2016-10-13] MEDS: TAMSULOSIN 0.4 MG CAP.ER.24H. PO SCH (08:30)
[2016-10-13] MEDS: FUROSEMIDE 40 MG TABLET. PO SCH (08:30)
[2016-10-13] MEDS: cloNIDine HCL 0.2 MG TABLET PO SCH ×2 (08:30→20:20)
[2016-10-13] MEDS: CARVEDILOL 12.5 MG TABLET. PO SCH ×2 (08:32→14:14)
[2016-10-13] MEDS: amLODIPine BESYLATE 10 MG TABLET PO SCH (08:32)
[2016-10-13] MEDS: ENOXAPARIN 40 MG/0.4 ML SYRINGE. SQ SCH (08:33)
[2016-10-13] MEDS: AMOXICILLIN/K CLAV 875/125MG TABLET. PO SCH ×2 (08:34→20:20)
[2016-10-13] MEDS: INSULIN ASPART 300 UNITS/3 ML INSULN.PEN SQ SCH ×3 (08:40→18:22)
--- NOTE | 2016-10-13 09:41 | PDOC ---
PROGRESS NOTES Subjective Subjective Lopez in place Objective Objective Vital Signs Date Time Temp Pulse Resp B/P (MAP) Pulse Ox O2 Delivery O2 Flow Rate FiO2 10/13/16 08:33 18 Room Air 10/13/16 08:32 75 128/71 10/13/16 07:00 98.4 93 98.4 10/13/16 01:20 2.0 Intake and Output 10/13/16 07:00 Intake Total 2580 ml Output Total 3100 ml Balance -520 ml Intake Oral 2580 ml Output Urine Total 3100 ml Physical Exam Physical Exam Good UO urine clear Plan Plan of Care Keep lopez. nephrology seeing pt. f/u urology 2 weeks for voiding trial. I will be on leave until November 05. Problems Medical Problems: (1) CHF (congestive heart failure) Status: Acute (2) COPD exacerbation Status: Acute (3) Respiratory distress Status: Acute Comment Review of Relevant I have reviewed the following items jessee (where applicable) has been applied. Labs Laboratory Tests Test 10/11/16 11:10 10/11/16 16:56 10/11/16 20:46 10/12/16 05:15 Glucose (Fingerstick) 178 mg/dL (70-99) 144 mg/dL (70-99) 96 mg/dL (70-99) White Blood Count 7.8 x10^3/uL (4.0-11.0) Red Blood Count 2.94 x10^6/uL (3.50-5.40) Hemoglobin 8.2 g/dL (12.0-15.5) Hematocrit 25.6 % (36.0-47.0) Mean Corpuscular Volume 87 fL (79-100) Mean Corpuscular Hemoglobin 28 pg (25-35) Mean Corpuscular Hemoglobin Concent 32 g/dL (31-37) Red Cell Distribution Width 17.1 % (11.5-14.5) Platelet Count 287 x10^3/uL (140-400) Neutrophils (%) (Auto) 60 % (31-73) Lymphocytes (%) (Auto) 21 % (24-48) Monocytes (%) (Auto) 10 % (0-9) Eosinophils (%) (Auto) 8 % (0-3) Basophils (%) (Auto) 1 % (0-3) Neutrophils # (Auto) 4.7 x10^3uL (1.8-7.7) Lymphocytes # (Auto) 1.7 x10^3/uL (1.0-4.8) Monocytes # (Auto) 0.8 x10^3/uL (0.0-1.1) Eosinophils # (Auto) 0.6 x10^3/uL (0.0-0.7) Basophils # (Auto) 0.1 x10^3/uL (0.0-0.2) Sodium Level 139 mmol/L (136-145) Potassium Level 3.6 mmol/L (3.5-5.1) Chloride Level 102 mmol/L (98-107) Carbon Dioxide Level 30 mmol/L (21-32) Anion Gap 7 (6-14) Blood Urea Nitrogen 37 mg/dL (7-20) Creatinine 2.4 mg/dL (0.6-1.0) Estimated GFR (Cockcroft-Gault) 25.1 Glucose Level 183 mg/dL (70-99) Calcium Level 8.3 mg/dL (8.5-10.1) Test 10/12/16 07:57 10/12/16 12:11 10/12/16 17:07 10/12/16 18:55 Glucose (Fingerstick) 170 mg/dL (70-99) 197 mg/dL (70-99) 152 mg/dL (70-99) Reticulocyte Count (auto) 1.8 % (0.5-2.5) Iron Level 20 ug/dL (50-170) Total Iron Binding Capacity 273 ug/dL (250-450) Iron Saturation 7 % (15-34) Ferritin 34 ng/mL (8-252) Vitamin B12 Level 541 pg/mL (247-911) Test 10/12/16 21:09 10/13/16 03:35 Glucose (Fingerstick) 181 mg/dL (70-99) Hemoglobin 8.2 g/dL (12.0-15.5) Sodium Level 144 mmol/L (136-145) Potassium Level 3.4 mmol/L (3.5-5.1) Chloride Level 105 mmol/L (98-107) Carbon Dioxide Level 30 mmol/L (21-32) Anion Gap 9 (6-14) Blood Urea Nitrogen 33 mg/dL (7-20) Creatinine 2.3 mg/dL (0.6-1.0) Estimated GFR (Cockcroft-Gault) 26.4 Glucose Level 227 mg/dL (70-99) Calcium Level 8.2 mg/dL (8.5-10.1) Phosphorus Level 4.4 mg/dL (2.6-4.7) Magnesium Level 1.8 mg/dL (1.8-2.4) Albumin 2.3 g/dL (3.4-5.0) Triglycerides Level 140 mg/dL (0-150) Cholesterol Level 145 mg/dL (0-200) LDL Cholesterol, Calculated 72 mg/dL (0-100) VLDL Cholesterol, Calculated 28 mg/dL (0-40) Non-HDL Cholesterol Calculated 100 mg/dL (0-129) HDL Cholesterol 45 mg/dL (40-60) Cholesterol/HDL Ratio 3.2 Laboratory Tests Test 10/12/16 12:11 10/12/16 17:07 10/12/16 18:55 10/12/16 21:09 Glucose (Fingerstick) 197 mg/dL (70-99) 152 mg/dL (70-99) 181 mg/dL (70-99) Reticulocyte Count (auto) 1.8 % (0.5-2.5) Iron Level 20 ug/dL (50-170) Total Iron Binding Capacity 273 ug/dL (250-450) Iron Saturation 7 % (15-34) Ferritin 34 ng/mL (8-252) Vitamin B12 Level 541 pg/mL (247-911) Test 10/13/16 03:35 Hemoglobin 8.2 g/dL (12.0-15.5) Sodium Level 144 mmol/L (136-145) Potassium Level 3.4 mmol/L (3.5-5.1) Chloride Level 105 mmol/L (98-107) Carbon Dioxide Level 30 mmol/L (21-32) Anion Gap 9 (6-14) Blood Urea Nitrogen 33 mg/dL (7-20) Creatinine 2.3 mg/dL (0.6-1.0) Estimated GFR (Cockcroft-Gault) 26.4 Glucose Level 227 mg/dL (70-99) Calcium Level 8.2 mg/dL (8.5-10.1) Phosphorus Level 4.4 mg/dL (2.6-4.7) Magnesium Level 1.8 mg/dL (1.8-2.4) Albumin 2.3 g/dL (3.4-5.0) Triglycerides Level 140 mg/dL (0-150) Cholesterol Level 145 mg/dL (0-200) LDL Cholesterol, Calculated 72 mg/dL (0-100) VLDL Cholesterol, Calculated 28 mg/dL (0-40) Non-HDL Cholesterol Calculated 100 mg/dL (0-129) HDL Cholesterol 45 mg/dL (40-60) Cholesterol/HDL Ratio 3.2 Microbiology 10/10/16 Blood Culture - Preliminary, Resulted NO GROWTH AFTER 3 DAYS Medications Current Medications Furosemide (Lasix) 40 mg 1X ONCE IVP Last administered on 10/09/16 19:40; Start 10/09/16 at 19:30; Stop 10/09/16 at 19:31; Status DC Fentanyl Citrate (Fentanyl 2ml Vial) 25 mcg PRN Q15MIN PRN IV PAIN GREATER THAN 3/10 Last administered on 10/09/16 19:41; Start 10/09/16 at 19:45; Stop at 23:47; Status DC Nitroglycerin (Nitrostat) 0.4 mg PRN Q5MIN PRN SL CHEST PAIN Last administered on 10/09/16 20:03; Start 10/09/16 at 20:00 Methylprednisolone Sodium Succinate (SOLU-Medrol 40MG VIAL) 40 mg 1X ONCE IV Last administered on 10/09/16 20:57; Start 10/09/16 at 20:45; Stop 10/09/16 at 20:46; Status DC Albuterol/ Ipratropium (Duoneb) 3 ml 1X ONCE NEB Last administered on 20:48; Start 10/09/16 at 20:45; Stop 10/09/16 at 20:46; Status DC Metoprolol Tartrate (Lopressor) 5 mg 1X ONCE IVP Last administered on 21:00; Start 10/09/16 at 20:45; Stop 10/09/16 at 20:46; Status DC Albuterol/ Ipratropium (Duoneb) 3 ml STK-MED ONCE .ROUTE ; Start 10/09/16 at 20: 42; Stop 10/09/16 at 20:43; Status DC Acetaminophen (Tylenol) 650 mg PRN Q6HRS PRN PO MILD PAIN / TEMP Last administered on 10/10/16 01:13; Start 10/10/16 at 00:00 Piperacillin Sod/ Tazobactam Sod 3.375 gm/Sodium Chloride 50 ml @ 100 mls/hr Q6HRS IV Last administered on 10/12/16 05:49; Start 10/10/16 at 00:30; Stop at 11:24; Status DC Vancomycin HCl 1 gm/Sodium Chloride 250 ml @ 250 mls/hr Q12H IV ; Start at 00:00; Status UNV Vancomycin HCl (Vanco Per Pharmacy) 1 each PRN DAILY PRN MC SEE COMMENTS Last administered on 10/10/16 09:57; Start 10/10/16 at 00:15; Stop 10/11/16 at 11:09 ; Status DC Vancomycin HCl 2 gm/Sodium Chloride 500 ml @ 250 mls/hr 1X ONCE IV Last administered on 10/10/16 01:13; Start 10/10/16 at 01:00; Stop 10/10/16 at 02:59 ; Status DC Vancomycin HCl 2 gm/Sodium Chloride 500 ml @ 250 mls/hr Q24H IV Last administered on 10/10/16 02:50; Start 10/11/16 at 01:00; Stop 10/11/16 at 11:02 ; Status DC Vancomycin HCl 1 each 1X ONCE MC ; Start 10/12/16 at 00:30; Stop 10/12/16 at 00 :30; Status DC Furosemide (Lasix) 40 mg DAILY IVP Last administered on 10/12/16 08:59; Start 10/10/16 at 09:00; Stop 10/12/16 at 11:50; Status DC Enoxaparin Sodium (Lovenox 30mg Syringe) 30 mg Q24H SQ ; Start 10/10/16 at 08:00 ; Stop 10/10/16 at 08:00; Status DC Enoxaparin Sodium (Lovenox 40mg Syringe) 40 mg Q24H SQ Last administered on 09:46; Start 10/10/16 at 08:00; Stop 10/10/16 at 09:46; Status DC Enoxaparin Sodium (Lovenox 40mg Syringe) 40 mg Q12H SQ Last administered on 08:33; Start 10/10/16 at 10:00 Pneumococcal Polyvalent Vaccine (Do NOT chart on this placeholder) 1 each 1X ONCE MC ; Start 10/10/16 at 11:00; Stop 10/10/16 at 11:01; Status UNV Pneumococcal Polyvalent Vaccine (Pneumovax 23) 0.5 ml ONCE ONCE VAX IM ; Start 10/10/16 at 13:00; Stop 10/10/16 at 13:01; Status DC Amlodipine Besylate (Norvasc) 10 mg DAILY PO Last administered on 10/13/16 08: 32; Start 10/10/16 at 15:00 Atorvastatin Calcium (Lipitor) 40 mg QHS PO Last administered on 10/12/16 20: 30; Start 10/10/16 at 21:00 Benzonatate (Tessalon Perle) 100 mg PRN TID PRN PO COUGH Last administered on 20:32; Start 10/10/16 at 14:30 Clonidine HCl (Catapres) 0.2 mg BID PO Last administered on 10/13/16 08:30; Start 10/10/16 at 15:00 Hydralazine HCl (Apresoline) 50 mg TID PO Last administered on 10/13/16 08:31 ; Start 10/10/16 at 15:00 Acetaminophen/ Hydrocodone Bitart (Lortab 5/325) 1 tab PRN Q4HRS PRN PO SEVERE PAIN Last administered on 10/12/16 20:32; Start 10/10/16 at 14:30 Insulin Aspart (NovoLOG) 10 units TIDAC SQ Last administered on 10/13/16 08:40 ; Start 10/10/16 at 16:30 Albuterol Sulfate (Ventolin Neb Soln) 2.5 mg PRN Q4HRS PRN NEB SOA Last administered on 10/13/16 02:30; Start 10/10/16 at 14:45 Carvedilol (Coreg) 25 mg BID92 PO Last administered on 10/13/16 08:32; Start 10/10/16 at 15:00 Pantoprazole Sodium (Protonix) 40 mg DAILYAC PO Last administered on 10/13/16 08:29; Start 10/10/16 at 15:00 Acetaminophen/ Hydrocodone Bitart (Lortab 5/325) 2 tab PRN Q4HRS PRN PO SEVERE PAIN Last administered on 10/13/16 08:33; Start 10/10/16 at 14:45 Insulin Detemir (Levemir) 30 units BID SQ ; Start 10/10/16 at 21:00; Stop at 22:24; Status DC Insulin Detemir (Levemir) 29 units HS SQ Last administered on 10/13/16 00:05; Start 10/10/16 at 23:00 Tamsulosin HCl (Flomax) 0.4 mg DAILY PO Last administered on 10/13/16 08:30; Start 10/12/16 at 09:30 Amoxicillin/ Clavulanate Potassium (Augmentin 875/ 125mg) 1 tab BID PO Last administered on 10/13/16 08:34; Start 10/12/16 at 12:00 Furosemide (Lasix) 40 mg DAILY PO Last administered on 10/13/16 08:30; Start 10/12/16 at 17:00 Magnesium Sulfate/ Dextrose 50 ml @ 25 mls/hr PRN DAILY PRN IV for Mag < 1.7 on am labs; Start 10/12/16 at 18:15 Active Scripts Active [facility] [facility] 5-325 Tablet (Acetaminophen/Hydrocodone Bitart) 1 Each Tablet 1-2 Tab PO Q4-6HRS PRN Tessalon Perle (Benzonatate) 100 Mg Capsule 1 Cap PO TID PRN Levaquin (Levofloxacin) 750 Mg Tablet 1 Tab PO DAILY Doxycycline Hyclate 100 Mg Tablet 100 Mg PO BID Furosemide 80 Mg Tablet 80 Mg PO DAILY Amlodipine Besylate 10 Mg Tablet 10 Mg PO DAILY Robaxin (Methocarbamol) 500 Mg Tablet 500 Mg PO HS PRN Novolog Flexpen (Insulin Aspart) 100 Unit/1 Ml Insuln.pen 10 Units SQ TIDAC Hydralazine Hcl 50 Mg Tablet 100 Mg PO Q8HRS Furosemide 40 Mg Tablet 40 Mg PO DAILY Prednisone 20 Mg Tablet 40 Mg PO DAILY Reported Wang Recinosostar (Insulin Glargine,Hum.rec.anlog) 300 Unit/1 Ml Insuln.pen 36 Unit SQ HS Isosorbide Mononitrate Er (Isosorbide Mononitrate) 30 Mg Tab.er.24h 30 Mg PO TID Gabapentin 300 Mg Capsule 300 Mg PO BID Sertraline Hcl 50 Mg Tablet 50 Mg PO DAILY Metformin Hcl 1,000 Mg Tablet 1,000 Mg PO [id number] Atorvastatin Calcium 40 Mg Tablet 1 Tab PO DAILY Lisinopril 40 Mg Tablet 1 Tab PO DAILY Omeprazole 40 Mg Capsule. 1 Cap PO DAILY Ventolin Hfa Inhaler (Albuterol Sulfate) 18 Gm Hfa.aer.ad 2 Puff IH PRN Q4-6HRS Percocet 10-325 Mg Tablet (Oxycodone/Acetaminophen) 1 Each Tablet 1 Tab PO Q4- 6HRS Glipizide 10 Mg Tablet 1 Tab PO BIDAC Clonidine Hcl 0.2 Mg Tablet 1 Tab PO BID Coreg (Carvedilol) 25 Mg Tablet 1 Tab PO BID92 Vitals/I & O Vital Sign - Last 24 Hours 10/12/16 10/12/16 10/12/16 10/12/16 10:50 11:56 13:02 15:04 Temp 98.3 98.2 98.3 98.2 Pulse 73 71 Resp 20 19 B/P (MAP) 138/50 (79) 147/64 (91) Pulse Ox 99 96 100 O2 Delivery Room Air Room Air Room Air Room Air 10/12/16 10/12/16 10/12/16 10/12/16 15:32 15:33 18:23 19:50 Temp 97.8 97.8 Pulse 71 71 75 Resp 14 18 B/P (MAP) 147/64 147/64 159/69 (99) Pulse Ox 100 96 O2 Delivery Room Air Room Air 10/12/16 10/12/16 10/12/16 10/12/16 20:00 20:30 20:30 20:32 Pulse 75 75 Resp 16 B/P (MAP) 159/69 159/69 Pulse Ox 96 O2 Delivery Room Air Room Air 10/12/16 10/12/16 10/13/16 10/13/16 21:35 23:30 01:20 02:25 Temp 98.1 98.1 Pulse 80 Resp 20 20 20 16 B/P (MAP) 152/54 (86) Pulse Ox 96 94 94 94 O2 Delivery Room Air Room Air Room Air BiPAP/CPAP O2 Flow Rate 2.0 10/13/16 10/13/16 10/13/1610/13/17 02:30 03:10 07:00 08:30 Temp 97.8 98.4 97.8 98.4 Pulse 79 75 75 Resp 20 18 B/P (MAP) 139/62 (87) 128/71 (90) 128/71 Pulse Ox 92 93 O2 Delivery BiPAP/CPAP Room Air Room Air 10/13/16 10/13/16 10/13/16 10/13/16 08:31 08:32 08:32 08:33 Pulse 75 79 75 Resp 18 B/P (MAP) 128/71 128/71 128/71 O2 Delivery Room Air Intake and Output 10/12/16 10/12/16 10/13/16 15:00 23:00 07:00 Intake Total 1280 ml 1300 ml Output Total 1150 ml 850 ml 1100 ml Balance -1150 ml 430 ml 200 ml GARETT ALCARAZ MD October 13, 2016 09:41
[2016-10-13 11:00] VITALS: BP 111/56
--- NOTE | 2016-10-13 11:36 | PDOC ---
CARDIO Progress Notes Date and Time Date of Service 10/13/16 Time of Evaluation 1020 Subjective Subjective: No Chest Pain, No Palpitations, Other (wanting to go home ) Vitals Vitals Vital Signs Date Time Temp Pulse Resp B/P (MAP) Pulse Ox O2 Delivery O2 Flow Rate FiO2 10/13/16 11:00 98.6 71 18 111/56 (74) 95 Room Air 98.6 10/13/16 01:20 2.0 Weight Weight [ ] Input and Output Intake and Output Intake and Output 10/13/16 07:00 Intake Total 2580 ml Output Total 3100 ml Balance -520 ml Intake Oral 2580 ml Output Urine Total 3100 ml Laboratory Labs Laboratory Tests Test 10/12/16 12:11 10/12/16 17:07 10/12/16 18:55 10/12/16 21:09 Glucose (Fingerstick) 197 mg/dL (70-99) 152 mg/dL (70-99) 181 mg/dL (70-99) Reticulocyte Count (auto) 1.8 % (0.5-2.5) Iron Level 20 ug/dL (50-170) Total Iron Binding Capacity 273 ug/dL (250-450) Iron Saturation 7 % (15-34) Ferritin 34 ng/mL (8-252) Vitamin B12 Level 541 pg/mL (247-911) Test 10/13/16 03:35 10/13/16 07:42 Hemoglobin 8.2 g/dL (12.0-15.5) Sodium Level 144 mmol/L (136-145) Potassium Level 3.4 mmol/L (3.5-5.1) Chloride Level 105 mmol/L (98-107) Carbon Dioxide Level 30 mmol/L (21-32) Anion Gap 9 (6-14) Blood Urea Nitrogen 33 mg/dL (7-20) Creatinine 2.3 mg/dL (0.6-1.0) Estimated GFR (Cockcroft-Gault) 26.4 Glucose Level 227 mg/dL (70-99) Calcium Level 8.2 mg/dL (8.5-10.1) Phosphorus Level 4.4 mg/dL (2.6-4.7) Magnesium Level 1.8 mg/dL (1.8-2.4) Albumin 2.3 g/dL (3.4-5.0) Triglycerides Level 140 mg/dL (0-150) Cholesterol Level 145 mg/dL (0-200) LDL Cholesterol, Calculated 72 mg/dL (0-100) VLDL Cholesterol, Calculated 28 mg/dL (0-40) Non-HDL Cholesterol Calculated 100 mg/dL (0-129) HDL Cholesterol 45 mg/dL (40-60) Cholesterol/HDL Ratio 3.2 Glucose (Fingerstick) 119 mg/dL (70-99) Microbiology Micro Microbiology 10/10/16 Blood Culture - Preliminary, Resulted NO GROWTH AFTER 3 DAYS Physical Exam HEENT: Neck Supple W Full Motion Chest: Symmetric LUNGS: Other (diminished bases ) Heart: S1S2, RRR Abdomen: Soft N/T, Other (obese ) Extremities: No Calf Tenderness, Other (trace bilateral LE edema ) Neurology: alert, oriented, follow commands Assessment Assessment Acute on chronic diastolic heart failure improved with diuresis echo 09/28 showed LVEF 55-60% repeat echo pending; if no significant changes, may discharge from a CV standpoint continue medical management. Resume CYDNEY when Cr normalizes. 2. Acute hypoxic respiratory failure multifactorial per pulmonary 3. Accelerated hypertension controlled with meds 4. Hyperlipidemia statin therapy 5. Diabetes mellitus per PCP 6. MARY with CKD Cr 2.3 7. urinary retention per urology SAM WELSH APRN October 13, 2016 11:35
--- NOTE | 2016-10-13 11:43 | PDOC ---
PULMONARY PROGRESS NOTES Subjective NO SOA Vitals Vital Signs Date Time Temp Pulse Resp B/P (MAP) Pulse Ox O2 Delivery O2 Flow Rate FiO2 10/13/16 11:00 98.6 71 18 111/56 (74) 95 Room Air 98.6 10/13/16 01:20 2.0 ROS: No Nausea, No Chest Pain, No Abdominal Pain, No Increase Cough General: Alert, Oriented X4, No acute distress Lungs: Clear Cardiovascular: S1, S2 Abdomen: Soft, Non-tender Neuro Exam: Alert Extremities: No Edema Skin: Warm Labs Laboratory Tests Test 10/11/16 16:56 10/11/16 20:46 10/12/16 05:15 10/12/16 07:57 Glucose (Fingerstick) 144 mg/dL (70-99) 96 mg/dL (70-99) 170 mg/dL (70-99) White Blood Count 7.8 x10^3/uL (4.0-11.0) Red Blood Count 2.94 x10^6/uL (3.50-5.40) Hemoglobin 8.2 g/dL (12.0-15.5) Hematocrit 25.6 % (36.0-47.0) Mean Corpuscular Volume 87 fL (79-100) Mean Corpuscular Hemoglobin 28 pg (25-35) Mean Corpuscular Hemoglobin Concent 32 g/dL (31-37) Red Cell Distribution Width 17.1 % (11.5-14.5) Platelet Count 287 x10^3/uL (140-400) Neutrophils (%) (Auto) 60 % (31-73) Lymphocytes (%) (Auto) 21 % (24-48) Monocytes (%) (Auto) 10 % (0-9) Eosinophils (%) (Auto) 8 % (0-3) Basophils (%) (Auto) 1 % (0-3) Neutrophils # (Auto) 4.7 x10^3uL (1.8-7.7) Lymphocytes # (Auto) 1.7 x10^3/uL (1.0-4.8) Monocytes # (Auto) 0.8 x10^3/uL (0.0-1.1) Eosinophils # (Auto) 0.6 x10^3/uL (0.0-0.7) Basophils # (Auto) 0.1 x10^3/uL (0.0-0.2) Sodium Level 139 mmol/L (136-145) Potassium Level 3.6 mmol/L (3.5-5.1) Chloride Level 102 mmol/L (98-107) Carbon Dioxide Level 30 mmol/L (21-32) Anion Gap 7 (6-14) Blood Urea Nitrogen 37 mg/dL (7-20) Creatinine 2.4 mg/dL (0.6-1.0) Estimated GFR (Cockcroft-Gault) 25.1 Glucose Level 183 mg/dL (70-99) Calcium Level 8.3 mg/dL (8.5-10.1) Test 10/12/16 12:11 10/12/16 17:07 10/12/16 18:55 10/12/16 21:09 Glucose (Fingerstick) 197 mg/dL (70-99) 152 mg/dL (70-99) 181 mg/dL (70-99) Reticulocyte Count (auto) 1.8 % (0.5-2.5) Iron Level 20 ug/dL (50-170) Total Iron Binding Capacity 273 ug/dL (250-450) Iron Saturation 7 % (15-34) Ferritin 34 ng/mL (8-252) Vitamin B12 Level 541 pg/mL (247-911) Test 10/13/16 03:35 10/13/16 07:42 Hemoglobin 8.2 g/dL (12.0-15.5) Sodium Level 144 mmol/L (136-145) Potassium Level 3.4 mmol/L (3.5-5.1) Chloride Level 105 mmol/L (98-107) Carbon Dioxide Level 30 mmol/L (21-32) Anion Gap 9 (6-14) Blood Urea Nitrogen 33 mg/dL (7-20) Creatinine 2.3 mg/dL (0.6-1.0) Estimated GFR (Cockcroft-Gault) 26.4 Glucose Level 227 mg/dL (70-99) Calcium Level 8.2 mg/dL (8.5-10.1) Phosphorus Level 4.4 mg/dL (2.6-4.7) Magnesium Level 1.8 mg/dL (1.8-2.4) Albumin 2.3 g/dL (3.4-5.0) Triglycerides Level 140 mg/dL (0-150) Cholesterol Level 145 mg/dL (0-200) LDL Cholesterol, Calculated 72 mg/dL (0-100) VLDL Cholesterol, Calculated 28 mg/dL (0-40) Non-HDL Cholesterol Calculated 100 mg/dL (0-129) HDL Cholesterol 45 mg/dL (40-60) Cholesterol/HDL Ratio 3.2 Glucose (Fingerstick) 119 mg/dL (70-99) Laboratory Tests Test 10/12/16 12:11 10/12/16 17:07 10/12/16 18:55 10/12/16 21:09 Glucose (Fingerstick) 197 mg/dL (70-99) 152 mg/dL (70-99) 181 mg/dL (70-99) Reticulocyte Count (auto) 1.8 % (0.5-2.5) Iron Level 20 ug/dL (50-170) Total Iron Binding Capacity 273 ug/dL (250-450) Iron Saturation 7 % (15-34) Ferritin 34 ng/mL (8-252) Vitamin B12 Level 541 pg/mL (247-911) Test 10/13/16 03:35 10/13/16 07:42 Hemoglobin 8.2 g/dL (12.0-15.5) Sodium Level 144 mmol/L (136-145) Potassium Level 3.4 mmol/L (3.5-5.1) Chloride Level 105 mmol/L (98-107) Carbon Dioxide Level 30 mmol/L (21-32) Anion Gap 9 (6-14) Blood Urea Nitrogen 33 mg/dL (7-20) Creatinine 2.3 mg/dL (0.6-1.0) Estimated GFR (Cockcroft-Gault) 26.4 Glucose Level 227 mg/dL (70-99) Calcium Level 8.2 mg/dL (8.5-10.1) Phosphorus Level 4.4 mg/dL (2.6-4.7) Magnesium Level 1.8 mg/dL (1.8-2.4) Albumin 2.3 g/dL (3.4-5.0) Triglycerides Level 140 mg/dL (0-150) Cholesterol Level 145 mg/dL (0-200) LDL Cholesterol, Calculated 72 mg/dL (0-100) VLDL Cholesterol, Calculated 28 mg/dL (0-40) Non-HDL Cholesterol Calculated 100 mg/dL (0-129) HDL Cholesterol 45 mg/dL (40-60) Cholesterol/HDL Ratio 3.2 Glucose (Fingerstick) 119 mg/dL (70-99) Medications Active Scripts Medications Dose Route/Sig Max Daily Dose Days Date Category [place] 5-325 Tablet (Acetaminophen/Hydrocodone Bitart) 1 Each Tablet 1-2 Tab PO Q4-6HRS PRN 01/30/16 Rx Tessalon Perle (Benzonatate) 100 Mg Capsule 1 Cap PO TID PRN 01/30/16 Rx Levaquin (Levofloxacin) 750 Mg Tablet 1 Tab PO DAILY 01/30/16 Rx Doxycycline Hyclate 100 Mg Tablet 100 Mg PO BID 10/08/15 Rx Furosemide 80 Mg Tablet 80 Mg PO DAILY 10/08/15 Rx Amlodipine Besylate 10 Mg Tablet 10 Mg PO DAILY 09/27/15 Rx Robaxin (Methocarbamol) 500 Mg Tablet 500 Mg PO HS PRN 09/15/15 Rx Novolog Flexpen (Insulin Aspart) 100 Unit/1 Ml Insuln.pen 10 Units SQ TIDAC 05/27/15 Rx Hydralazine Hcl 50 Mg Tablet 100 Mg PO Q8HRS 05/27/15 Rx Furosemide 40 Mg Tablet 40 Mg PO DAILY 05/27/15 Rx Prednisone 20 Mg Tablet 40 Mg PO DAILY 05/27/15 Rx Atorvastatin Calcium 40 Mg Tablet 1 Tab PO DAILY 05/23/15 Reported Lisinopril 40 Mg Tablet 1 Tab PO DAILY 05/23/15 Reported Omeprazole 40 Mg Capsule.dr 1 Cap PO DAILY 05/23/15 Reported Ventolin Hfa Inhaler (Albuterol Sulfate) 18 Gm Hfa.aer.ad 2 Puff IH PRN Q4-6HRS 05/23/15 Reported Percocet 10-325 Mg Tablet (Oxycodone/Acetaminophen) 1 Each Tablet 1 Tab PO Q4-6HRS 06/10/14 Reported Lantus Solostar (Insulin Glargine,Hum.rec.anlog) 100 Unit/1 Ml Insuln.pen 30 Unit SQ BID 06/10/14 Reported Glipizide 10 Mg Tablet 1 Tab PO BIDAC 06/10/14 Reported Clonidine Hcl 0.2 Mg Tablet 1 Tab PO BID 06/10/14 Reported Coreg (Carvedilol) 25 Mg Tablet 1 Tab PO [id number] 06/10/14 Reported Impression . 1. Acute respiratory failure, multifactorial secondary to acute on chronic heart failure , less likely pneumonia. 2. Doubt pneumonia. 3. Leukocytosis. 4. Hypertension, uncontrolled. 5. Morbid obesity, suspect PRAVEEN 6. COPD Plan . SUSPECT MOSTLY HEART FAILURE CXR IMPROVED PO ANTIBIOTICS CONTINUE DIURESE PRN BIPAP SS OP OK WITH DC TODAY GENE COTA MD October 13, 2016 11:43
--- NOTE | 2016-10-13 12:50 | PDOC ---
Provider Note Provider Note Med onc consult 1. Monoclonal gammopathy - pt prefers outpt w/u f/u with me next wee. Plan bone marrow bx see dictation [id number] FRIEDA DILLARD MD October 13, 2016 12:50
--- NOTE | 2016-10-13 14:01 | PDOC ---
SUBJECTIVE ROS MARY/ CKD III DOign and feeling OK/ better today CVS: no Orthopnea, no CP RESP: no SOB, no MORLEY GI: no Nausea, no Vomiting : no Dysuria, no Urgency OBJECTIVE Vital Signs Vital Signs Date Time Temp Pulse Resp B/P (MAP) Pulse Ox O2 Delivery O2 Flow Rate FiO2 10/13/16 11:00 98.6 71 18 111/56 (74) 95 Room Air 98.6 10/13/16 01:20 2.0 I & 0 Intake and Output 10/13/16 07:00 Intake Total 2580 ml Output Total 3100 ml Balance -520 ml Intake Oral 2580 ml Output Urine Total 3100 ml PHYSICAL EXAM Physical Exam General Appearance: Awake Alert Oriented x 3 In no Distress Eyes: VIsion Unchanged Conjunctiva Normal EN: No EN Drainage Mucous Memb. moist Neck: no JVD min JVP Supple no Thyromegaly CVS: S1 S2 + Murmur No Gallop No Rub + Edema Resp: no Rales no Rhonchi no Acc. Muscle use; distal BS GI: BAS +ve NO Bruit Non Tender Non Distended : no CVA tenderness; no Suprapubic Tenderness SKIN: no Rashes Breast Exam deferred Mu.Sk: Adequate ROM no Muscle Atrophy Heme: Unable to palpate Obvious LAD no palp Splenomegaly NEURO: Good Strength and Tone Cranial Nerves II - XII grossly intact Psych: ? Depressed; flattish affect no Active hallucination Assessment & Plan ARF (? ATN) - due to better BP Control, Diuresis, h/o monoclonal Gammopathy. Current FLuid and E-lyte status does not necessitate emergent need for Dialysis. Will re-evaluate for Dialysis in am. Urinary retention OA may have played a role too, Creat stable currenlty CKD III/ IV - DM/ HTnsive / NS Anemia: was Fe def in the past. may need Epogen; Transfuse as needed; ? part of Monoclonal gammopahty - will consult Dr Alicia. Previous B12 was low too now better HTN: Now better controlled; Current BP meds reviewed. See orders for changes. Fl Overload - gentle Diuresis to maintain resp status. Aggressive Diuresis in settingof Paraprotein may ppt MARY Protienruia - requantitate with ratio; restart CYDNEY-i when creat stabllizes (? was she not taking it at home) Left Adrenal nodule - checking Renin/Elliot levels Obesity, DM and Adrenal Nodule - will check 24-hr for Cortisol. If Low it may be due to Prednisone (as per home med list) , if high it may need further eval ? Monoclonal Gammopahty - Pt had numerous QS WRT same so thse were answered Discussed Plan of Care and prognosis etc. at length with pt COMMENT/RELEVANT DATA Meds Current Medications Medications (Trade) Dose Ordered Sig/Rob Start Time Stop Time Status Last Admin Dose Admin Acetaminophen (Tylenol) 650 mg PRN Q6HRS PRN 10/10/16 00:00 10/10/16 01:13 650 MG Acetaminophen/ Hydrocodone Bitart (Lortab 5/325) 2 tab PRN Q4HRS PRN 10/10/16 14:45 10/13/16 08:33 2 TAB Albuterol Sulfate (Ventolin Neb Soln) 2.5 mg PRN Q4HRS PRN 10/10/16 14:45 10/13/16 02:30 2.5 MG Albuterol/ Ipratropium (Duoneb) 3 ml STK-MED ONCE 10/09/16 20:42 10/09/16 20:43 DC Amlodipine Besylate (Norvasc) 10 mg DAILY 10/10/16 15:00 10/13/16 08:32 10 MG Amoxicillin/ Clavulanate Potassium (Augmentin 875/ 125mg) 1 tab BID 10/12/16 12:00 10/13/16 08:34 1 TAB Atorvastatin Calcium (Lipitor) 40 mg QHS 10/10/16 21:00 10/12/16 20:30 40 MG Benzonatate (Tessalon Perle) 100 mg PRN TID PRN 10/10/16 14:30 10/12/16 20:32 100 MG Carvedilol (Coreg) 25 mg BID92 10/10/16 15:00 10/13/16 08:32 25 MG Clonidine HCl (Catapres) 0.2 mg BID 10/10/16 15:00 10/13/16 08:30 0.2 MG Enoxaparin Sodium (Lovenox 30mg Syringe) 30 mg Q24H 10/10/16 08:00 10/10/16 08:00 DC Enoxaparin Sodium (Lovenox 40mg Syringe) 40 mg Q12H 10/10/16 10:00 10/13/16 08:33 40 MG Fentanyl Citrate (Fentanyl 2ml Vial) 25 mcg PRN Q15MIN PRN 10/09/16 19:45 10/09/16 23:47 DC 10/09/16 19:41 25 MCG Furosemide (Lasix) 40 mg DAILY 10/12/16 17:00 10/13/16 08:30 40 MG Hydralazine HCl (Apresoline) 50 mg TID 10/10/16 15:00 10/13/16 08:31 50 MG Insulin Aspart (NovoLOG) 10 units TIDAC 10/10/16 16:30 10/13/16 12:45 10 UNITS Insulin Detemir (Levemir) 29 units HS 10/10/16 23:00 10/13/16 00:05 29 UNITS Magnesium Sulfate/ Dextrose 50 ml @ 25 mls/hr PRN DAILY PRN 10/12/16 18:15 Methylprednisolone Sodium Succinate (SOLU-Medrol 40MG VIAL) 40 mg 1X ONCE 10/09/16 20:45 10/09/16 20:46 DC 10/09/16 20:57 40 MG Metoprolol Tartrate (Lopressor) 5 mg 1X ONCE 10/09/16 20:45 10/09/16 20:46 DC 10/09/16 21:00 5 MG Nitroglycerin (Nitrostat) 0.4 mg PRN Q5MIN PRN 10/09/16 20:00 10/09/16 20:03 0.4 MG Pantoprazole Sodium (Protonix) 40 mg DAILYAC 10/10/16 15:00 10/13/16 08:29 40 MG Piperacillin Sod/ Tazobactam Sod 3.375 gm/Sodium Chloride 50 ml @ 100 mls/hr Q6HRS 10/10/16 00:30 10/12/16 11:24 DC 10/12/16 05:49 100 MLS/HR Pneumococcal Polyvalent Vaccine (Do NOT chart on this placeholder) 1 each 1X ONCE 10/10/16 11:00 10/10/16 11:01 UNV Pneumococcal Polyvalent Vaccine (Pneumovax 23) 0.5 ml ONCE ONCE 10/10/16 13:00 10/10/16 13:01 DC Tamsulosin HCl (Flomax) 0.4 mg DAILY 10/12/16 09:30 10/13/16 08:30 0.4 MG Vancomycin HCl 1 each 1X ONCE 10/12/16 00:30 10/12/16 00:30 DC Vancomycin HCl (Vanco Per Pharmacy) 1 each PRN DAILY PRN 10/10/16 00:15 10/11/16 11:09 DC 10/10/16 09:57 1 EACH Vancomycin HCl 1 gm/Sodium Chloride 250 ml @ 250 mls/hr Q12H 10/10/16 00:00 UNV Vancomycin HCl 2 gm/Sodium Chloride 500 ml @ 250 mls/hr Q24H 10/11/16 01:00 10/11/16 11:02 DC 10/10/16 02:50 250 MLS/HR Lab Laboratory Tests Test 10/12/16 17:07 10/12/16 18:55 10/12/16 21:09 10/13/16 03:35 Glucose (Fingerstick) 152 mg/dL (70-99) 181 mg/dL (70-99) Reticulocyte Count (auto) 1.8 % (0.5-2.5) Iron Level 20 ug/dL (50-170) Total Iron Binding Capacity 273 ug/dL (250-450) Iron Saturation 7 % (15-34) Ferritin 34 ng/mL (8-252) Vitamin B12 Level 541 pg/mL (247-911) Hemoglobin 8.2 g/dL (12.0-15.5) Sodium Level 144 mmol/L (136-145) Potassium Level 3.4 mmol/L (3.5-5.1) Chloride Level 105 mmol/L (98-107) Carbon Dioxide Level 30 mmol/L (21-32) Anion Gap 9 (6-14) Blood Urea Nitrogen 33 mg/dL (7-20) Creatinine 2.3 mg/dL (0.6-1.0) Estimated GFR (Cockcroft-Gault) 26.4 Glucose Level 227 mg/dL (70-99) Calcium Level 8.2 mg/dL (8.5-10.1) Phosphorus Level 4.4 mg/dL (2.6-4.7) Magnesium Level 1.8 mg/dL (1.8-2.4) Albumin 2.3 g/dL (3.4-5.0) Triglycerides Level 140 mg/dL (0-150) Cholesterol Level 145 mg/dL (0-200) LDL Cholesterol, Calculated 72 mg/dL (0-100) VLDL Cholesterol, Calculated 28 mg/dL (0-40) Non-HDL Cholesterol Calculated 100 mg/dL (0-129) HDL Cholesterol 45 mg/dL (40-60) Cholesterol/HDL Ratio 3.2 Test 10/13/16 07:42 10/13/16 11:47 Glucose (Fingerstick) 119 mg/dL (70-99) 129 mg/dL (70-99) RAFAEL VELIZ MD October 13, 2016 14:01
--- NOTE | 2016-10-13 14:10 | PDOC ---
PROGRESS NOTES Chief Complaint Chief Complaint 1. Acute respiratory failure, multifactorial secondary to acute on chronic heart failure and possible pneumonia. RESOLVED 2. Possible pneumonia. Cover for both gram-positive and gram-negative organisms. 3. Leukocytosis. 4. Fever. 5. Possible sepsis. 6. Hypertension, uncontrolled. 7. Accelerated hTN POA 8. Hx cOPD 9. CHF diastolic 10. Morbid obesity 11. Urinary retention on lopez History of Present Illness History of Present Illness Out having echo Undergoing 24 hr urine, to end later 8:30 PM Monoclonal gammopathy on renal work up last yr Dw renal CRea 2.3 from 2,.4 LAsix shifted to 40 PO from 40 IV qD K ok PLAM: Maintain lopez PEr renal recs Await 24 hr Vitals Vitals Vital Signs Date Time Temp Pulse Resp B/P (MAP) Pulse Ox O2 Delivery O2 Flow Rate FiO2 10/13/16 11:00 98.6 71 18 111/56 (74) 95 Room Air 98.6 10/13/16 01:20 2.0 Physical Exam General: Alert, Oriented X3, moderate distress, Other (on BiPAP) Heart: Regular rate, No murmurs Lungs: Clear Abdomen: Soft, No tenderness Extremities: Other (trace pedal edema) Skin: No rashes Labs LABS Laboratory Tests Test 10/12/16 17:07 10/12/16 18:55 10/12/16 21:09 10/13/16 03:35 Glucose (Fingerstick) 152 mg/dL (70-99) 181 mg/dL (70-99) Reticulocyte Count (auto) 1.8 % (0.5-2.5) Iron Level 20 ug/dL (50-170) Total Iron Binding Capacity 273 ug/dL (250-450) Iron Saturation 7 % (15-34) Ferritin 34 ng/mL (8-252) Vitamin B12 Level 541 pg/mL (247-911) Hemoglobin 8.2 g/dL (12.0-15.5) Sodium Level 144 mmol/L (136-145) Potassium Level 3.4 mmol/L (3.5-5.1) Chloride Level 105 mmol/L (98-107) Carbon Dioxide Level 30 mmol/L (21-32) Anion Gap 9 (6-14) Blood Urea Nitrogen 33 mg/dL (7-20) Creatinine 2.3 mg/dL (0.6-1.0) Estimated GFR (Cockcroft-Gault) 26.4 Glucose Level 227 mg/dL (70-99) Calcium Level 8.2 mg/dL (8.5-10.1) Phosphorus Level 4.4 mg/dL (2.6-4.7) Magnesium Level 1.8 mg/dL (1.8-2.4) Albumin 2.3 g/dL (3.4-5.0) Triglycerides Level 140 mg/dL (0-150) Cholesterol Level 145 mg/dL (0-200) LDL Cholesterol, Calculated 72 mg/dL (0-100) VLDL Cholesterol, Calculated 28 mg/dL (0-40) Non-HDL Cholesterol Calculated 100 mg/dL (0-129) HDL Cholesterol 45 mg/dL (40-60) Cholesterol/HDL Ratio 3.2 Test 10/13/16 07:42 10/13/16 11:47 Glucose (Fingerstick) 119 mg/dL (70-99) 129 mg/dL (70-99) Review of Systems Review of Systems out having echo Assessment and Plan Assessmemt and Plan Problems Medical Problems: (1) CHF (congestive heart failure) Status: Acute (2) COPD exacerbation Status: Acute (3) Respiratory distress Status: Acute Problems: Comment Review of Relevant I have reviewed the following items jessee (where applicable) has been applied. Labs Laboratory Tests Test 10/11/16 16:56 10/11/16 20:46 10/12/16 05:15 10/12/16 07:57 Glucose (Fingerstick) 144 mg/dL (70-99) 96 mg/dL (70-99) 170 mg/dL (70-99) White Blood Count 7.8 x10^3/uL (4.0-11.0) Red Blood Count 2.94 x10^6/uL (3.50-5.40) Hemoglobin 8.2 g/dL (12.0-15.5) Hematocrit 25.6 % (36.0-47.0) Mean Corpuscular Volume 87 fL (79-100) Mean Corpuscular Hemoglobin 28 pg (25-35) Mean Corpuscular Hemoglobin Concent 32 g/dL (31-37) Red Cell Distribution Width 17.1 % (11.5-14.5) Platelet Count 287 x10^3/uL (140-400) Neutrophils (%) (Auto) 60 % (31-73) Lymphocytes (%) (Auto) 21 % (24-48) Monocytes (%) (Auto) 10 % (0-9) Eosinophils (%) (Auto) 8 % (0-3) Basophils (%) (Auto) 1 % (0-3) Neutrophils # (Auto) 4.7 x10^3uL (1.8-7.7) Lymphocytes # (Auto) 1.7 x10^3/uL (1.0-4.8) Monocytes # (Auto) 0.8 x10^3/uL (0.0-1.1) Eosinophils # (Auto) 0.6 x10^3/uL (0.0-0.7) Basophils # (Auto) 0.1 x10^3/uL (0.0-0.2) Sodium Level 139 mmol/L (136-145) Potassium Level 3.6 mmol/L (3.5-5.1) Chloride Level 102 mmol/L (98-107) Carbon Dioxide Level 30 mmol/L (21-32) Anion Gap 7 (6-14) Blood Urea Nitrogen 37 mg/dL (7-20) Creatinine 2.4 mg/dL (0.6-1.0) Estimated GFR (Cockcroft-Gault) 25.1 Glucose Level 183 mg/dL (70-99) Calcium Level 8.3 mg/dL (8.5-10.1) Test 10/12/16 12:11 10/12/16 17:07 10/12/16 18:55 10/12/16 21:09 Glucose (Fingerstick) 197 mg/dL (70-99) 152 mg/dL (70-99) 181 mg/dL (70-99) Reticulocyte Count (auto) 1.8 % (0.5-2.5) Iron Level 20 ug/dL (50-170) Total Iron Binding Capacity 273 ug/dL (250-450) Iron Saturation 7 % (15-34) Ferritin 34 ng/mL (8-252) Vitamin B12 Level 541 pg/mL (247-911) Test 10/13/16 03:35 10/13/16 07:42 10/13/16 11:47 Hemoglobin 8.2 g/dL (12.0-15.5) Sodium Level 144 mmol/L (136-145) Potassium Level 3.4 mmol/L (3.5-5.1) Chloride Level 105 mmol/L (98-107) Carbon Dioxide Level 30 mmol/L (21-32) Anion Gap 9 (6-14) Blood Urea Nitrogen 33 mg/dL (7-20) Creatinine 2.3 mg/dL (0.6-1.0) Estimated GFR (Cockcroft-Gault) 26.4 Glucose Level 227 mg/dL (70-99) Calcium Level 8.2 mg/dL (8.5-10.1) Phosphorus Level 4.4 mg/dL (2.6-4.7) Magnesium Level 1.8 mg/dL (1.8-2.4) Albumin 2.3 g/dL (3.4-5.0) Triglycerides Level 140 mg/dL (0-150) Cholesterol Level 145 mg/dL (0-200) LDL Cholesterol, Calculated 72 mg/dL (0-100) VLDL Cholesterol, Calculated 28 mg/dL (0-40) Non-HDL Cholesterol Calculated 100 mg/dL (0-129) HDL Cholesterol 45 mg/dL (40-60) Cholesterol/HDL Ratio 3.2 Glucose (Fingerstick) 119 mg/dL (70-99) 129 mg/dL (70-99) Laboratory Tests Test 10/12/16 17:07 10/12/16 18:55 10/12/16 21:09 10/13/16 03:35 Glucose (Fingerstick) 152 mg/dL (70-99) 181 mg/dL (70-99) Reticulocyte Count (auto) 1.8 % (0.5-2.5) Iron Level 20 ug/dL (50-170) Total Iron Binding Capacity 273 ug/dL (250-450) Iron Saturation 7 % (15-34) Ferritin 34 ng/mL (8-252) Vitamin B12 Level 541 pg/mL (247-911) Hemoglobin 8.2 g/dL (12.0-15.5) Sodium Level 144 mmol/L (136-145) Potassium Level 3.4 mmol/L (3.5-5.1) Chloride Level 105 mmol/L (98-107) Carbon Dioxide Level 30 mmol/L (21-32) Anion Gap 9 (6-14) Blood Urea Nitrogen 33 mg/dL (7-20) Creatinine 2.3 mg/dL (0.6-1.0) Estimated GFR (Cockcroft-Gault) 26.4 Glucose Level 227 mg/dL (70-99) Calcium Level 8.2 mg/dL (8.5-10.1) Phosphorus Level 4.4 mg/dL (2.6-4.7) Magnesium Level 1.8 mg/dL (1.8-2.4) Albumin 2.3 g/dL (3.4-5.0) Triglycerides Level 140 mg/dL (0-150) Cholesterol Level 145 mg/dL (0-200) LDL Cholesterol, Calculated 72 mg/dL (0-100) VLDL Cholesterol, Calculated 28 mg/dL (0-40) Non-HDL Cholesterol Calculated 100 mg/dL (0-129) HDL Cholesterol 45 mg/dL (40-60) Cholesterol/HDL Ratio 3.2 Test 10/13/16 07:42 10/13/16 11:47 Glucose (Fingerstick) 119 mg/dL (70-99) 129 mg/dL (70-99) Microbiology 10/10/16 Blood Culture - Preliminary, Resulted NO GROWTH AFTER 3 DAYS Medications Current Medications Furosemide (Lasix) 40 mg 1X ONCE IVP Last administered on 10/09/16 19:40; Start 10/09/16 at 19:30; Stop 10/09/16 at 19:31; Status DC Fentanyl Citrate (Fentanyl 2ml Vial) 25 mcg PRN Q15MIN PRN IV PAIN GREATER THAN 3/10 Last administered on 10/09/16 19:41; Start 10/09/16 at 19:45; Stop at 23:47; Status DC Nitroglycerin (Nitrostat) 0.4 mg PRN Q5MIN PRN SL CHEST PAIN Last administered on 10/09/16 20:03; Start 10/09/16 at 20:00 Methylprednisolone Sodium Succinate (SOLU-Medrol 40MG VIAL) 40 mg 1X ONCE IV Last administered on 10/09/16 20:57; Start 10/09/16 at 20:45; Stop 10/09/16 at 20:46; Status DC Albuterol/ Ipratropium (Duoneb) 3 ml 1X ONCE NEB Last administered on 20:48; Start 10/09/16 at 20:45; Stop 10/09/16 at 20:46; Status DC Metoprolol Tartrate (Lopressor) 5 mg 1X ONCE IVP Last administered on 21:00; Start 10/09/16 at 20:45; Stop 10/09/16 at 20:46; Status DC Albuterol/ Ipratropium (Duoneb) 3 ml STK-MED ONCE .ROUTE ; Start 10/09/16 at 20: 42; Stop 10/09/16 at 20:43; Status DC Acetaminophen (Tylenol) 650 mg PRN Q6HRS PRN PO MILD PAIN / TEMP Last administered on 10/10/16 01:13; Start 10/10/16 at 00:00 Piperacillin Sod/ Tazobactam Sod 3.375 gm/Sodium Chloride 50 ml @ 100 mls/hr Q6HRS IV Last administered on 10/12/16 05:49; Start 10/10/16 at 00:30; Stop at 11:24; Status DC Vancomycin HCl 1 gm/Sodium Chloride 250 ml @ 250 mls/hr Q12H IV ; Start at 00:00; Status UNV Vancomycin HCl (Vanco Per Pharmacy) 1 each PRN DAILY PRN MC SEE COMMENTS Last administered on 10/10/16 09:57; Start 10/10/16 at 00:15; Stop 10/11/16 at 11:09 ; Status DC Vancomycin HCl 2 gm/Sodium Chloride 500 ml @ 250 mls/hr 1X ONCE IV Last administered on 10/10/16 01:13; Start 10/10/16 at 01:00; Stop 10/10/16 at 02:59 ; Status DC Vancomycin HCl 2 gm/Sodium Chloride 500 ml @ 250 mls/hr Q24H IV Last administered on 10/10/16 02:50; Start 10/11/16 at 01:00; Stop 10/11/16 at 11:02 ; Status DC Vancomycin HCl 1 each 1X ONCE MC ; Start 10/12/16 at 00:30; Stop 10/12/16 at 00 :30; Status DC Furosemide (Lasix) 40 mg DAILY IVP Last administered on 10/12/16 08:59; Start 10/10/16 at 09:00; Stop 10/12/16 at 11:50; Status DC Enoxaparin Sodium (Lovenox 30mg Syringe) 30 mg Q24H SQ ; Start 10/10/16 at 08:00 ; Stop 10/10/16 at 08:00; Status DC Enoxaparin Sodium (Lovenox 40mg Syringe) 40 mg Q24H SQ Last administered on 09:46; Start 10/10/16 at 08:00; Stop 10/10/16 at 09:46; Status DC Enoxaparin Sodium (Lovenox 40mg Syringe) 40 mg Q12H SQ Last administered on 08:33; Start 10/10/16 at 10:00 Pneumococcal Polyvalent Vaccine (Do NOT chart on this placeholder) 1 each 1X ONCE MC ; Start 10/10/16 at 11:00; Stop 10/10/16 at 11:01; Status UNV Pneumococcal Polyvalent Vaccine (Pneumovax 23) 0.5 ml ONCE ONCE VAX IM ; Start 10/10/16 at 13:00; Stop 10/10/16 at 13:01; Status DC Amlodipine Besylate (Norvasc) 10 mg DAILY PO Last administered on 10/13/16 08: 32; Start 10/10/16 at 15:00 Atorvastatin Calcium (Lipitor) 40 mg QHS PO Last administered on 10/12/16 20: 30; Start 10/10/16 at 21:00 Benzonatate (Tessalon Perle) 100 mg PRN TID PRN PO COUGH Last administered on 20:32; Start 10/10/16 at 14:30 Clonidine HCl (Catapres) 0.2 mg BID PO Last administered on 10/13/16 08:30; Start 10/10/16 at 15:00 Hydralazine HCl (Apresoline) 50 mg TID PO Last administered on 10/13/16 08:31 ; Start 10/10/16 at 15:00 Acetaminophen/ Hydrocodone Bitart (Lortab 5/325) 1 tab PRN Q4HRS PRN PO SEVERE PAIN Last administered on 10/12/16 20:32; Start 10/10/16 at 14:30 Insulin Aspart (NovoLOG) 10 units TIDAC SQ Last administered on 10/13/16 12:45 ; Start 10/10/16 at 16:30 Albuterol Sulfate (Ventolin Neb Soln) 2.5 mg PRN Q4HRS PRN NEB SOA Last administered on 10/13/16 02:30; Start 10/10/16 at 14:45 Carvedilol (Coreg) 25 mg BID92 PO Last administered on 10/13/16 08:32; Start 10/10/16 at 15:00 Pantoprazole Sodium (Protonix) 40 mg DAILYAC PO Last administered on 10/13/16 08:29; Start 10/10/16 at 15:00 Acetaminophen/ Hydrocodone Bitart (Lortab 5/325) 2 tab PRN Q4HRS PRN PO SEVERE PAIN Last administered on 10/13/16 08:33; Start 10/10/16 at 14:45 Insulin Detemir (Levemir) 30 units BID SQ ; Start 10/10/16 at 21:00; Stop at 22:24; Status DC Insulin Detemir (Levemir) 29 units HS SQ Last administered on 10/13/16 00:05; Start 10/10/16 at 23:00 Tamsulosin HCl (Flomax) 0.4 mg DAILY PO Last administered on 10/13/16 08:30; Start 10/12/16 at 09:30 Amoxicillin/ Clavulanate Potassium (Augmentin 875/ 125mg) 1 tab BID PO Last administered on 10/13/16 08:34; Start 10/12/16 at 12:00 Furosemide (Lasix) 40 mg DAILY PO Last administered on 10/13/16 08:30; Start 10/12/16 at 17:00 Magnesium Sulfate/ Dextrose 50 ml @ 25 mls/hr PRN DAILY PRN IV for Mag < 1.7 on am labs; Start 10/12/16 at 18:15 Active Scripts Active [employer] 5-325 Tablet (Acetaminophen/Hydrocodone Bitart) 1 Each Tablet 1-2 Tab PO Q4-6HRS PRN Tessalon Perle (Benzonatate) 100 Mg Capsule 1 Cap PO TID PRN Levaquin (Levofloxacin) 750 Mg Tablet 1 Tab PO DAILY Doxycycline Hyclate 100 Mg Tablet 100 Mg PO BID Furosemide 80 Mg Tablet 80 Mg PO DAILY Amlodipine Besylate 10 Mg Tablet 10 Mg PO DAILY Robaxin (Methocarbamol) 500 Mg Tablet 500 Mg PO HS PRN Novolog Flexpen (Insulin Aspart) 100 Unit/1 Ml Insuln.pen 10 Units SQ TIDAC Hydralazine Hcl 50 Mg Tablet 100 Mg PO Q8HRS Furosemide 40 Mg Tablet 40 Mg PO DAILY Prednisone 20 Mg Tablet 40 Mg PO DAILY Reported Wang Hummel (Insulin Glargine,Hum.rec.anlog) 300 Unit/1 Ml Insuln.pen 36 Unit SQ HS Isosorbide Mononitrate Er (Isosorbide Mononitrate) 30 Mg Tab.er.24h 30 Mg PO TID Gabapentin 300 Mg Capsule 300 Mg PO BID Sertraline Hcl 50 Mg Tablet 50 Mg PO DAILY Metformin Hcl 1,000 Mg Tablet 1,000 Mg PO [id number] Atorvastatin Calcium 40 Mg Tablet 1 Tab PO DAILY Lisinopril 40 Mg Tablet 1 Tab PO DAILY Omeprazole 40 Mg Capsule.dr 1 Cap PO DAILY Ventolin Hfa Inhaler (Albuterol Sulfate) 18 Gm Hfa.aer.ad 2 Puff IH PRN Q4-6HRS Percocet 10-325 Mg Tablet (Oxycodone/Acetaminophen) 1 Each Tablet 1 Tab PO Q4- 6HRS Glipizide 10 Mg Tablet 1 Tab PO BIDAC Clonidine Hcl 0.2 Mg Tablet 1 Tab PO BID Coreg (Carvedilol) 25 Mg Tablet 1 Tab PO BID92 Vitals/I & O Vital Sign - Last 24 Hours 10/12/16 10/12/16 10/12/16 10/12/16 15:04 15:32 15:33 18:23 Temp 98.2 98.2 Pulse 71 71 71 Resp 19 14 B/P (MAP) 147/64 (91) 147/64 147/64 Pulse Ox 100 100 O2 Delivery Room Air Room Air 10/12/16 10/12/16 10/12/16 10/12/16 19:50 20:00 20:30 20:30 Temp 97.8 97.8 Pulse 75 75 75 Resp 18 B/P (MAP) 159/69 (99) 159/69 159/69 Pulse Ox 96 O2 Delivery Room Air Room Air 10/12/16 10/12/16 10/12/16 10/13/16 20:32 21:35 23:30 01:20 Temp 98.1 98.1 Pulse 80 Resp 16 20 20 20 B/P (MAP) 152/54 (86) Pulse Ox 96 96 94 94 O2 Delivery Room Air Room Air Room Air Room Air O2 Flow Rate 2.0 10/13/16 10/13/16 10/13/16 10/13/16 02:25 02:30 03:10 07:00 Temp 97.8 98.4 97.8 98.4 Pulse 79 75 Resp 20 18 B/P (MAP) 139/62 (87) 128/71 (90) Pulse Ox 94 92 93 O2 Delivery BiPAP/CPAP Room Air Room Air 10/13/16 10/13/16 10/13/16 10/13/16 08:05 08:30 08:31 08:32 Pulse 75 75 79 B/P (MAP) 128/71 128/71 128/71 O2 Delivery Room Air 10/13/16 10/13/16 10/13/16 10/13/16 08:32 08:33 09:33 11:00 Temp 98.6 98.6 Pulse 75 71 Resp 18 18 18 B/P (MAP) 128/71 111/56 (74) Pulse Ox 95 O2 Delivery Room Air Room Air Room Air Intake and Output 10/12/16 10/12/16 10/13/16 15:00 23:00 07:00 Intake Total 1280 ml 1300 ml Output Total 1150 ml 850 ml 1100 ml Balance -1150 ml 430 ml 200 ml ASAD BRAGA MD October 13, 2016 14:09
[2016-10-13 15:00] VITALS: BP 118/62
[2016-10-13 15:30] LABS: UR PROTEIN RD 20.7 mg/dL (Not Estab.)
--- NOTE | 2016-10-13 16:19 | CARD ---
APPROVED REPORT EXAM: Two-dimensional and M-mode echocardiogram with Doppler and color Doppler. Other Information Quality : Technically Limited Rhythm : NSRTechnically limited study due to body habitus. INDICATION Congestive Heart Failure 2D DIMENSIONS RVDd3.6 (2.9-3.5cm)Left Atrium(2D)4.9 (1.6-4.0cm) IVSd1.8 (0.7-1.1cm)Aortic Root(2D)2.9 (2.0-3.7cm) LVDd5.4 (3.9-5.9cm)LVOT Diameter2.2 (1.8-2.4cm) PWd1.8 (0.7-1.1cm)LVDs3.2 (2.5-4.0cm) FS (%) 0.1 %SV97.3 ml LVEF(%)60.3 (>50%) Aortic Valve AoV Peak Baldo.81.5cm/sAoV VTI23.3cm AO Peak GR.2.7mmHgLVOT Peak Baldo.109.5cm/s LVOT VTI 25.96cmAO Mean GR.2mmHg LIAT (VMAX)5.51em8ETN (VTI)4.15cm2 Mitral Valve MV E Jbhraqit261.9cm/sMV DECEL CPCA139kr MV A Vtkxhskg319.2cm/sMV ZTR53tc E/A Ratio1.5MV A Zkijqcpq909ih MVA (PHT)4.02cm2 TDI E/Lateral E'30.6E/Medial E'25.2 Pulmonary Valve RVOT VTI14.5cm Tricuspid Valve TR P. Pwdyepgr858zv/sRAP XRCSZTMR9baEr TR Peak Gr.46zmIoGCVR95zqYu Pulmonary Vein S1 Axvwkycx13.0cm/sD2 Tqcapqdb53.1cm/s LEFT VENTRICLE The left ventricle is normal size. There is mild concentric left ventricular hypertrophy. Left ventri katy systolic function is normal. The Ejection Fraction is 55-60%. There is normal LV segmental wall m otion. The left ventricular diastolic function and filling is normal for age. There is no ventricular septal defect visualized. RIGHT VENTRICLE The right ventricle is normal size. The right ventricular systolic function is normal. ATRIA The left atrium is mildly dilated. The right atrium size is normal. The interatrial septum is intact with no evidence for an atrial septal defect or patent foramen ovale as noted on 2-D or Doppler imagi ng. AORTIC VALVE The aortic valve is not well visualized but appears trileaflet. Doppler and Color Flow revealed no si gnificant aortic regurgitation. There is no significant aortic valvular stenosis. MITRAL VALVE Mitral annular calcification is moderate. There is no mitral valve stenosis. Doppler and Color Flow r evealed mild mitral regurgitation. TRICUSPID VALVE The tricuspid valve is not well visualized. Doppler and Color Flow revealed mild tricuspid regurgitat ion. The PA pressure was estimated at 44 mmHg. There is no tricuspid valve stenosis. PULMONIC VALVE The pulmonic valve is not well visualized. Doppler and Color Flow revealed no pulmonic valvular regur gitation. There is no pulmonic valvular stenosis. GREAT VESSELS The aortic root is normal in size. Normal pulmonary venous flow (Doppler). The IVC is dilated and col lapses >50% with inspiration. PERICARDIAL EFFUSION There is no evidence of significant pericardial effusion. Critical Notification Critical Value: No <Conclusion> The left ventricle is normal size. Left ventricle systolic function is normal. The Ejection Fraction is 55-60%. There is mild concentric left ventricular hypertrophy. There is no significant aortic valvular stenosis. Doppler and Color Flow revealed no significant aortic regurgitation. Doppler and Color Flow revealed mild mitral regurgitation. Doppler and Color Flow revealed mild tricuspid regurgitation. The PA pressure was estimated at 44 mmHg.
--- NOTE | 2016-10-13 16:34 | PDOC3 ---
Discharge Summary Visit Information Date of Admission: October 09, 2016 Date of Discharge: October 13, 2016 Admitting Diagnosis Comment: 1. Acute respiratory failure, multifactorial secondary to acute on chronic heart failure and possible pneumonia. RESOLVED 2. Possible pneumonia. Cover for both gram-positive and gram-negative organisms. 3. Leukocytosis. 4. Fever. 5. Possible sepsis. 6. Hypertension, uncontrolled. 7. Accelerated hTN POA 8. Hx cOPD 9. CHF diastolic 10. Morbid obesity 11. Urinary retention on lopez Final Diagnosis Problems Medical Problems: (1) CHF (congestive heart failure) Status: Acute (2) COPD exacerbation Status: Acute (3) Respiratory distress Status: Acute Brief Hospital Course Allergies Allergies Coded Allergies Type Severity Reaction Last Updated Verified No Known Drug Allergies 06/10/14 No Vital Signs Vital Signs Date Time Temp Pulse Resp B/P (MAP) Pulse Ox O2 Delivery O2 Flow Rate FiO2 10/13/16 15:17 18 Room Air 10/13/16 15:00 98.7 69 118/62 (80) 100 98.7 10/13/16 01:20 2.0 Lab Results Laboratory Tests Test 10/11/16 16:56 10/11/16 20:46 10/12/16 05:15 10/12/16 07:57 Glucose (Fingerstick) 144 mg/dL (70-99) 96 mg/dL (70-99) 170 mg/dL (70-99) White Blood Count 7.8 x10^3/uL (4.0-11.0) Red Blood Count 2.94 x10^6/uL (3.50-5.40) Hemoglobin 8.2 g/dL (12.0-15.5) Hematocrit 25.6 % (36.0-47.0) Mean Corpuscular Volume 87 fL (79-100) Mean Corpuscular Hemoglobin 28 pg (25-35) Mean Corpuscular Hemoglobin Concent 32 g/dL (31-37) Red Cell Distribution Width 17.1 % (11.5-14.5) Platelet Count 287 x10^3/uL (140-400) Neutrophils (%) (Auto) 60 % (31-73) Lymphocytes (%) (Auto) 21 % (24-48) Monocytes (%) (Auto) 10 % (0-9) Eosinophils (%) (Auto) 8 % (0-3) Basophils (%) (Auto) 1 % (0-3) Neutrophils # (Auto) 4.7 x10^3uL (1.8-7.7) Lymphocytes # (Auto) 1.7 x10^3/uL (1.0-4.8) Monocytes # (Auto) 0.8 x10^3/uL (0.0-1.1) Eosinophils # (Auto) 0.6 x10^3/uL (0.0-0.7) Basophils # (Auto) 0.1 x10^3/uL (0.0-0.2) Sodium Level 139 mmol/L (136-145) Potassium Level 3.6 mmol/L (3.5-5.1) Chloride Level 102 mmol/L (98-107) Carbon Dioxide Level 30 mmol/L (21-32) Anion Gap 7 (6-14) Blood Urea Nitrogen 37 mg/dL (7-20) Creatinine 2.4 mg/dL (0.6-1.0) Estimated GFR (Cockcroft-Gault) 25.1 Glucose Level 183 mg/dL (70-99) Calcium Level 8.3 mg/dL (8.5-10.1) Test 10/12/16 12:11 10/12/16 17:07 10/12/16 18:55 10/12/16 21:09 Glucose (Fingerstick) 197 mg/dL (70-99) 152 mg/dL (70-99) 181 mg/dL (70-99) Reticulocyte Count (auto) 1.8 % (0.5-2.5) Iron Level 20 ug/dL (50-170) Total Iron Binding Capacity 273 ug/dL (250-450) Iron Saturation 7 % (15-34) Ferritin 34 ng/mL (8-252) Vitamin B12 Level 541 pg/mL (247-911) Test 10/12/16 23:55 10/13/16 03:35 10/13/16 07:42 10/13/16 11:47 Urine Protein 20.7 mg/dL (Not Estab.) Urine Creatinine 59.5 mg/dL (Not Estab.) Urine Protein/Creatinine Ratio 348 mg/g creat (0-200) Hemoglobin 8.2 g/dL (12.0-15.5) Sodium Level 144 mmol/L (136-145) Potassium Level 3.4 mmol/L (3.5-5.1) Chloride Level 105 mmol/L (98-107) Carbon Dioxide Level 30 mmol/L (21-32) Anion Gap 9 (6-14) Blood Urea Nitrogen 33 mg/dL (7-20) Creatinine 2.3 mg/dL (0.6-1.0) Estimated GFR (Cockcroft-Gault) 26.4 Glucose Level 227 mg/dL (70-99) Calcium Level 8.2 mg/dL (8.5-10.1) Phosphorus Level 4.4 mg/dL (2.6-4.7) Magnesium Level 1.8 mg/dL (1.8-2.4) Albumin 2.3 g/dL (3.4-5.0) Triglycerides Level 140 mg/dL (0-150) Cholesterol Level 145 mg/dL (0-200) LDL Cholesterol, Calculated 72 mg/dL (0-100) VLDL Cholesterol, Calculated 28 mg/dL (0-40) Non-HDL Cholesterol Calculated 100 mg/dL (0-129) HDL Cholesterol 45 mg/dL (40-60) Cholesterol/HDL Ratio 3.2 Glucose (Fingerstick) 119 mg/dL (70-99) 129 mg/dL (70-99) Laboratory Tests Test 10/12/16 17:07 10/12/16 18:55 10/12/16 21:09 10/12/16 23:55 Glucose (Fingerstick) 152 mg/dL (70-99) 181 mg/dL (70-99) Reticulocyte Count (auto) 1.8 % (0.5-2.5) Iron Level 20 ug/dL (50-170) Total Iron Binding Capacity 273 ug/dL (250-450) Iron Saturation 7 % (15-34) Ferritin 34 ng/mL (8-252) Vitamin B12 Level 541 pg/mL (247-911) Urine Protein 20.7 mg/dL (Not Estab.) Urine Creatinine 59.5 mg/dL (Not Estab.) Urine Protein/Creatinine Ratio 348 mg/g creat (0-200) Test 10/13/16 03:35 10/13/16 07:42 10/13/16 11:47 Hemoglobin 8.2 g/dL (12.0-15.5) Sodium Level 144 mmol/L (136-145) Potassium Level 3.4 mmol/L (3.5-5.1) Chloride Level 105 mmol/L (98-107) Carbon Dioxide Level 30 mmol/L (21-32) Anion Gap 9 (6-14) Blood Urea Nitrogen 33 mg/dL (7-20) Creatinine 2.3 mg/dL (0.6-1.0) Estimated GFR (Cockcroft-Gault) 26.4 Glucose Level 227 mg/dL (70-99) Calcium Level 8.2 mg/dL (8.5-10.1) Phosphorus Level 4.4 mg/dL (2.6-4.7) Magnesium Level 1.8 mg/dL (1.8-2.4) Albumin 2.3 g/dL (3.4-5.0) Triglycerides Level 140 mg/dL (0-150) Cholesterol Level 145 mg/dL (0-200) LDL Cholesterol, Calculated 72 mg/dL (0-100) VLDL Cholesterol, Calculated 28 mg/dL (0-40) Non-HDL Cholesterol Calculated 100 mg/dL (0-129) HDL Cholesterol 45 mg/dL (40-60) Cholesterol/HDL Ratio 3.2 Glucose (Fingerstick) 119 mg/dL (70-99) 129 mg/dL (70-99) Brief Hospital Course Ms. Platt is a 60 old admitted with respi failure, See my above dx to see her course, COurse remarkable for developing urinary retention, needed indwelling lopez. Advised by uro to keep lopez on dc, ff up pankaj 2 weeks, Pt being given leg bag, HAd ankit sandra after being IV diuresis for CHF and soa, already on home lasix, ABle to shift to PO 40n lasix both with cards and renal in agreement. 2 notes today See prev nore Discharge Information Condition at Discharge: Improved, Stable Disposition/Orders: D/C to Home Scheduled Albuterol Sulfate (Ventolin Hfa Inhaler), 2 PUFF IH PRN Q4-6HRS, (Reported) Amlodipine Besylate (Amlodipine Besylate), 10 MG PO DAILY Atorvastatin Calcium (Atorvastatin Calcium), 1 TAB PO DAILY, (Reported) Carvedilol (Coreg), 1 TAB PO BID92, (Reported) Clonidine Hcl (Clonidine Hcl), 1 TAB PO BID, (Reported) Doxycycline Hyclate (Doxycycline Hyclate), 100 MG PO BID Furosemide (Furosemide), 40 MG PO DAILY Furosemide (Furosemide), 80 MG PO DAILY Gabapentin (Gabapentin), 300 MG PO BID, (Reported) Glipizide (Glipizide), 1 TAB PO BIDAC, (Reported) Hydralazine Hcl (Hydralazine Hcl), 100 MG PO Q8HRS Insulin Aspart (Novolog Flexpen), 10 UNITS SQ TIDAC Insulin Glargine,Hum.rec.anlog (Toujeo Solostar), 36 UNIT SQ HS, (Reported) Isosorbide Mononitrate (Isosorbide Mononitrate Er), 30 MG PO TID, (Reported) Levofloxacin (Levaquin), 1 TAB PO DAILY Lisinopril (Lisinopril), 1 TAB PO DAILY, (Reported) Metformin Hcl (Metformin Hcl), 1,000 MG PO DAILYWBKFT, (Reported) Omeprazole (Omeprazole), 1 CAP PO DAILY, (Reported) Oxycodone/Apap 10-325 (Percocet 10-325 Mg Tablet), 1 TAB PO Q4-6HRS, (Reported) Prednisone (Prednisone), 40 MG PO DAILY Sertraline Hcl (Sertraline Hcl), 50 MG PO DAILY, (Reported) Scheduled PRN Benzonatate (Tessalon Perle), 1 CAP PO TID PRN for COUGH Hydrocodone/Apap 5-325 ([place] 5-325 Tablet), 1-2 TAB PO Q4-6HRS PRN for SEVERE PAIN Methocarbamol (Robaxin), 500 MG PO HS PRN for MUSCLE SPASMS ASAD BRAGA MD October 13, 2016 16:34
[2016-10-13 19:23] VITALS: BP 136/72
[2016-10-13 20:20] VITALS: BP 136/72
[2016-10-13] MEDS: ATORVASTATIN CALCIUM 40 MG TABLET. PO SCH (21:00)
--- NOTE | 2016-10-14 03:25 | CONS ---
DATE OF CONSULTATION: 10/13/2016 REQUESTING PHYSICIAN: Dr. Vivek Alcantara. REASON FOR CONSULTATION: Monoclonal gammopathy noted on serum protein electrophoresis from 09/22/2015, monoclonal lambda protein was noted. HISTORY OF PRESENT ILLNESS: The patient is a 60-year-old -[place] female who presented to [facility] on 10/09/2016 with complaints of shortness of breath. She has a history of COPD, congestive heart failure, tobacco use and she had dyspnea for 1-2 weeks prior to admission, in addition to worsening lower extremity edema and paroxysmal nocturnal dyspnea. She did not have any fever or chills. BNP was elevated. X-ray revealed increased markings compatible with congestive heart failure. She was admitted to the Cardiology unit. Cardiology consultation was obtained. She was diagnosed with acute hypoxic respiratory failure secondary to combination of acute on chronic diastolic heart failure, acute chronic obstructive pulmonary disease exacerbation and pneumonia. The patient also has chronic kidney disease and Dr. Vivek Alcantara from Nephrology was consulted for management of elevated creatinine. Her creatinine on 10/09/2016 was 1.8 and on 10/13/2016 it was 2.3. Review of the old records indicates that she has chronic and elevated creatinine levels. I was asked to see the patient because of monoclonal lambda protein noted on serum protein electrophoresis done on 09/22/2015. The patient does not recall having had a bone marrow biopsy. She also has evidence of anemia with hemoglobin of 8.2 on 10/13/2016, and she has evidence of chronic anemia. PAST MEDICAL HISTORY: Coronary artery disease, congestive heart failure, hypertension, hyperlipidemia, COPD, chronic anemia, anxiety, osteoarthritis, chronic kidney disease stage 3. PAST SURGICAL HISTORY: Tonsillectomy. FAMILY HISTORY: Uncle had lung cancer. SOCIAL HISTORY: She has smoked half a pack of cigarettes per day since the age of 19. No alcohol abuse. REVIEW OF SYSTEMS: A 12-point review of system was performed. Pertinent positives are mentioned in the history of present illness. Rest of the system review is negative. PHYSICAL EXAMINATION: GENERAL APPEARANCE: The patient is a 60-year-old -[place] female who is in no acute cardiorespiratory distress. VITAL SIGNS: Blood pressure 111/56, temperature 98.6. HEENT: Head atraumatic, normocephalic. Eyes: No icterus. NECK: Supple. CHEST: Bilaterally symmetrical. HEART: S1, S2 normal. ABDOMEN: Soft, nontender. CENTRAL NERVOUS SYSTEM: No focal deficits. LYMPHATICS: No lymphadenopathy. SKIN: No rashes. PSYCHOLOGIC: Mood and affect are appropriate. MUSCULOSKELETAL: No joint effusions. LABORATORY DATA: From 10/12/2016, WBC 7.8, hemoglobin 8.2, MCV 87, platelet count 287. Reticulocyte count 1.8, sodium 134, potassium 3.4, creatinine 2.3, BUN 33, calcium 8.2. Labs from 10/12/2016, indicates iron level of 20, TIBC 273, iron saturation 7, B12 of 541, ferritin 34. Review of the old records indicates that on 09/22/2015, she had evidence of monoclonal lambda protein and she also has a history of B12 deficiency with a B12 level of 190 on 09/21/2015. IMPRESSION AND PLAN: 1. Monoclonal gammopathy noted on serum protein electrophoresis from 09/22/2015. She had evidence of lambda monoclonal protein and the quantity was too small to be measured. She did not keep her f/u appointments with nephrology. With the evidence of anemia and chronic kidney disease, I would recommend further evaluation with a bone marrow aspiration and biopsy. I would also recommend repeat serum protein electrophoresis, immunofixation studies and serum free light chain. She mentions that she is being discharged today and she would like to defer all the workup to be done as outpatient. She does not want to stay here for further workup. I gave her my contact information and I have advised her to follow up with me in 1-2 weeks, so I can initiate and arrange for all the further workup. I discussed in detail with her the need for workup and to rule out multiple myeloma. All her questions were answered. 2. Normochromic normocytic anemia secondary to chronic kidney disease. She also has evidence of decreased iron saturation of 7% on 10/12/2016 with a ferritin of 34, suggestive of mild iron deficiency. In addition, she also has history of B12 deficiency in the past, but it is now corrected as of 10/12/2016. I would recommend continued monitoring. If her hemoglobin does not improve, then Aranesp would be an option for management of anemia of chronic kidney disease. I would give her a trial of iron prior to initiating Aranesp. 3. Respiratory failure secondary to congestive heart failure and chronic obstructive pulmonary disease, I appreciate Pulmonary and Cardiology consultation. 4. Chronic kidney disease stage III. Appreciate Nephrology consultation. I discussed with registered nurse. FRIEDA DILLARD MD DR: BIA/derik JOB#: [id number] / [id number] DARREL
[2016-10-14 11:24] LABS: VITAMIN D25(OH)TOTAL 16.7 ng/mL (30.0-100.0)
[2016-10-14 13:21] LABS: KAPPA LAMBDA RATIO 1.72 (0.26-1.65)
== END 2016-10-13 22:00 | disposition home or self-care (01) | DRG 871 ==
LOC: ER 20:07 → 2 SOUTH 20:50
PROVIDERS: ADMIT Internal Medicine; ATTEND Internal Medicine
PROC: 5A09457 Assistance with Respiratory Ventilation, 24-96 Consecutive Hours, Continuous Positive Airway Pressure (ICD-10-PCS; principal; 2016-10-09)
DX: A41.9 Sepsis, unspecified organism (principal); J96.01 Acute respiratory failure with hypoxia; I50.43 Acute on chronic combined systolic (congestive) and diastolic (congestive) heart failure; J18.9 Pneumonia, unspecified organism; N17.0 Acute kidney failure with tubular necrosis; I13.0 Hypertensive heart and chronic kidney disease with heart failure and stage 1 through stage 4 chronic kidney disease, or unspecified chronic kidney disease; J44.0 Chronic obstructive pulmonary disease with (acute) lower respiratory infection; J44.1 Chronic obstructive pulmonary disease with (acute) exacerbation; N13.30 Unspecified hydronephrosis; Z68.42 Body mass index [BMI] 45.0-49.9, adult; D47.2 Monoclonal gammopathy; D63.1 Anemia in chronic kidney disease; E11.22 Type 2 diabetes mellitus with diabetic chronic kidney disease; E66.01 Morbid (severe) obesity due to excess calories; E78.5 Hyperlipidemia, unspecified; M19.90 Unspecified osteoarthritis, unspecified site; F41.9 Anxiety disorder, unspecified; G47.00 Insomnia, unspecified; R33.9 Retention of urine, unspecified; F17.200 Nicotine dependence, unspecified, uncomplicated; G47.33 Obstructive sleep apnea (adult) (pediatric); I25.10 Atherosclerotic heart disease of native coronary artery without angina pectoris; I27.2 Other secondary pulmonary hypertension; N18.3 Chronic kidney disease, stage 3 (moderate); Z79.4 Long term (current) use of insulin; Z80.1 Family history of malignant neoplasm of trachea, bronchus and lung; Z82.49 Family history of ischemic heart disease and other diseases of the circulatory system; Z83.3 Family history of diabetes mellitus; Z98.51 Tubal ligation status
CPT/HCPCS: 36415; 36600; 71010; 74176; 80048; 80053; 80061; 80069; 81001; 82306; 82553; 82570; 82607; 82728; 82805; 82962; 83520; 83540; 83550; 83605; 83735; 83880; 84145; 84156; 84165; 84484; 85018; 85027; 85045; 86334; 87040; 93005; 93306; 94250; 94640; 94660; 94760; 96374; 96375; 99406; J1650; J1815; J1940; J2543; J2920; J3010; J3370; J3490; J7040; J7620; 97110; 97116; 97530; 97535; 99285-25

== ENCOUNTER 2016-11-30 00:33 | Inpatient (IN) | payer OTHER ==
[~2016-11-30] VITALS: Ht 165.1 cm; Wt 137.5 kg
[2016-11-30] VITALS (13 sets, daily range): BP systolic 117–179; BP diastolic 52–93
[~2016-11-30 00:33] MED LIST changes: +GABA-586 PO; +INSU300I SQ; +ISOS30TA4 PO; -OXYC-250 PO; +OXYC-328 PO; +SERT50TA8 PO
[2016-11-30 01:10] LABS: BASO # 0.1 x10^3/uL (0.0-0.2); BASO % 1 % (0-3); EOS % 1 % (0-3); HEMATOCRIT 28.4 % (36.0-47.0); LYMPH # 1.2 x10^3/uL (1.0-4.8); LYMPH % 8 % (24-48); MEAN CORPUSCULAR HEMOGLOBIN 27 pg (25-35); MEAN CORPUSCULAR HGB CONC 32 g/dL (31-37); MEAN CORPUSCULAR VOLUME 85 fL (79-100); MONO % 9 % (0-9); NEUT % 82 % (31-73); PLATELET COUNT 353 x10^3/uL (140-400); RED BLOOD COUNT 3.34 x10^6/uL (3.50-5.40); RED CELL DISTRIBUTION WIDTH 16.9 % (11.5-14.5); WHITE BLOOD COUNT 14.8 x10^3/uL (4.0-11.0)
[2016-11-30 01:16] LABS: CREATININE 1.5 mg/dL (0.6-1.0); POTASSIUM 3.6 mmol/L (3.5-5.1)
--- NOTE | 2016-11-30 01:16 | ED.ADGEN ---
Past Medical History Past Medical History: CHF, COPD, Diabetes-Type II, Hypertension Additional Past Medical Histor: insomnia Past Surgical History: Tonsillectomy, Other Additional Past Surgical Histo: R ARM FX, R LEG FX Alcohol Use: None Drug Use: None Adult General Chief Complaint Chief Complaint: SHORTNESS OF BREATH HPI HPI Patient is a 61 year old woman, history of CHF, COPD, uses 3 L of nasal cannula oxygen when necessary, type 2 diabetes mellitus, obesity, who presents emergency department via EMS with report of shortness of breath and difficulty breathing. Patient states that symptoms began earlier today. She states however she's been feeling "lousy" last several days. She states she's been coughing up brown mucus, denies any fevers or chills, any travel, any recent surgery, history of DVT or PE. States that she has been compliant with her medications, states she did try using her oxygen earlier today but it wasn't helping, EMS states that when they arrived she was not using her somal oxygen, and oxygen saturation was 76%, patient was tachypnic dyspnea, laboratory rate in the upper 30s. Patient was laced on a nonrebreather, and received a DuoNeb. On nonrebreather, patient currently has not saturation of 93%. She denies any chest pain, denies any swelling extremities, any missed doses of medication. Review of Systems Review of Systems Constitutional: Denies fever or chills. [] Eyes: Denies change in visual acuity. [] HENT: Denies nasal congestion or sore throat. [] Respiratory: Cough productive of mucus that is brown, worsening shortness of breath today. Cardiovascular: Denies chest pain or edema. [] GI: Denies abdominal pain, nausea, vomiting, bloody stools or diarrhea. [] : Denies dysuria. [] Musculoskeletal: Denies back pain or joint pain. [] Integument: Denies rash. [] Neurologic: Denies headache, focal weakness or sensory changes. [] Endocrine: Denies polyuria or polydipsia. [] Lymphatic: Denies swollen glands. [] Psychiatric: Denies depression or anxiety. [] Current Medications Current Medications Current Medications Medications (Trade) Dose Ordered Sig/Rob Start Time Stop Time Status Last Admin Dose Admin Furosemide (Lasix) 40 mg 1X ONCE 11/30/16 01:45 11/30/16 01:46 DC 11/30/16 02:03 40 MG Allergies Allergies Allergies Coded Allergies Type Severity Reaction Last Updated Verified No Known Drug Allergies 06/10/14 No Physical Exam Physical Exam Constitutional: Well developed, well nourished, moderate respiratory distress, ill in appearance, on nonrebreather. [] HENT: Normocephalic, atraumatic, bilateral external ears normal, oropharynx moist, no oral exudates, nose normal. [] Eyes: PERRLA, EOMI, conjunctiva normal, no discharge. [] Neck: Normal range of motion, no tenderness, supple, no stridor. [] Cardiovascular: Tachycardic, S1, S2, no rubs or gallops. [] Lungs & Thorax: Patient was significantly diminished breath sounds bilaterally, rales and wheezing noted, examination limited secondary to respiratory distress and body habitus. Abdomen: Bowel sounds normal, soft, obese, no rebound, rigidity, no guarding, no tenderness, no masses, no pulsatile masses. [] Skin: Warm, dry, no erythema, no rash. [] Back: No tenderness, no CVA tenderness. [] Extremities: No tenderness, no cyanosis, no clubbing, ROM intact, 1+ pitting edema bilaterally. Neurologic: Alert and oriented X 3, normal motor function, normal sensory function, no focal deficits noted. [] Psychologic: Affect normal, judgement normal, mood normal. [] Current Patient Data Vital Signs Vital Signs Date Time Temp Pulse Resp B/P (MAP) Pulse Ox O2 Delivery O2 Flow Rate FiO2 11/30/16 01:30 52 177/79 (111) 100 BiPAP/CPAP 11/30/16 01:05 98.8 32 98.8 Lab Values Laboratory Tests Test 11/30/16 00:50 White Blood Count 14.8 x10^3/uL (4.0-11.0) H Red Blood Count 3.34 x10^6/uL (3.50-5.40) L Hemoglobin 9.0 g/dL (12.0-15.5) L Hematocrit 28.4 % (36.0-47.0) L Mean Corpuscular Volume 85 fL (79-100) Mean Corpuscular Hemoglobin 27 pg (25-35) Mean Corpuscular Hemoglobin Concent 32 g/dL (31-37) Red Cell Distribution Width 16.9 % (11.5-14.5) H Platelet Count 353 x10^3/uL (140-400) Neutrophils (%) (Auto) 82 % (31-73) H Lymphocytes (%) (Auto) 8 % (24-48) L Monocytes (%) (Auto) 9 % (0-9) Eosinophils (%) (Auto) 1 % (0-3) Basophils (%) (Auto) 1 % (0-3) Neutrophils # (Auto) 12.1 x10^3uL (1.8-7.7) H Lymphocytes # (Auto) 1.2 x10^3/uL (1.0-4.8) Monocytes # (Auto) 1.3 x10^3/uL (0.0-1.1) H Eosinophils # (Auto) 0.1 x10^3/uL (0.0-0.7) Basophils # (Auto) 0.1 x10^3/uL (0.0-0.2) Sodium Level 141 mmol/L (136-145) Potassium Level 3.6 mmol/L (3.5-5.1) Chloride Level 102 mmol/L (98-107) Carbon Dioxide Level 30 mmol/L (21-32) Anion Gap 9 (6-14) Blood Urea Nitrogen 17 mg/dL (7-20) Creatinine 1.5 mg/dL (0.6-1.0) H Estimated GFR (Cockcroft-Gault) 43.0 BUN/Creatinine Ratio 11 (6-20) Glucose Level 254 mg/dL (70-99) H Calcium Level 9.0 mg/dL (8.5-10.1) Total Bilirubin 0.6 mg/dL (0.2-1.0) Aspartate Amino Transferase (AST) 16 U/L (15-37) Alanine Aminotransferase (ALT) 16 U/L (14-59) Alkaline Phosphatase 280 U/L (46-116) H Troponin I Quantitative 0.800 ng/mL (0.000-0.055) OW-Qro-S-Type Natriuretic Peptide 66291 pg/mL (0-124) H Total Protein 7.5 g/dL (6.4-8.2) Albumin 3.0 g/dL (3.4-5.0) L Albumin/Globulin Ratio 0.7 (1.0-1.7) L Laboratory Tests 11/30/16 00:50 Laboratory Tests 11/30/16 00:50 EKG EKG EC: Sinus rhythm, heart rate 87 beats/minute, upright axis, QTC of 453, OH 132, QRS of 94, baseline artifact noted, patient with respiratory distress, ECG required multiple attempts, T-wave inversions noted in lead 3, and in V6, some limitation of interpretation secondary to baseline artifact, but does not meet STEMI criteria. Abnormal ECG. As interpreted by me. [] Radiology/Procedures Radiology/Procedures Chest x-ray: One view: Patient with enlarged cardiac silhouette, noted to have patchy pulmonary infiltrates bilaterally, consistent with acute congestive heart failure. No pneumothorax noted, no effusions. As interpreted by me. [] Course & Med Decision Making Course & Med Decision Making Pertinent Labs and Imaging studies reviewed. (See chart for details) Patient placed on BiPAP upon evaluation in the emergency department, chest x- rays consistent with acute congestive heart failure. Patient's status improved significant family on BiPAP, oxygen saturations are in the mid upper 90s, work of breathing is improved. Patient is agreeable for admission to the hospital. Lasix 40 mg IV times one ordered in the ED, patient with a proBNP discrete and 11,000. Patient noted to have a slightly elevated troponin, which I believe is likely due to her hypoxia and increased work of pulmonary and cardiac function as opposed to an obstructive lesion, based on her examination and symptoms. I did discuss findings as above with Dr. Mercado ideology, patient remains chest pain-free, with decreased turgor breathing, increased oxygen saturation, initial ABG is non-concerning, we're able to titrate down her oxygen. At this time he recommends continuing Lasix IV push, at every 12 intervals, will follow the patient in the ICU. Consult pulmonary medical care also placed. Findings as above discussed with Dr. Damian of internal medicine, patient accepted his service as a full admission to the ICU, with consultation and close management as stated. Patient transferred to the ICU without issue. Dragon Disclaimer Dragon Disclaimer This electronic medical record was generated, in whole or in part, using a voice recognition dictation system. Departure Impression: Primary Impression: CHF (congestive heart failure) Additional Impression: Acute respiratory failure with hypoxia Disposition: ADMITTED INPATIENT Admitting Physician: Tatum, Nial Condition: IMPROVED Critical Care Time Critical care time was 25 minutes exclusive of procedures. Problem Qualifiers DAYLIN PAN DO Nov 30, 2016 01:16
[2016-11-30 01:22] LABS: ALBUMIN/GLOBULIN RATIO 0.7 (1.0-1.7); TOTAL BILIRUBIN 0.6 mg/dL (0.2-1.0); TOTAL PROTEIN 7.5 g/dL (6.4-8.2)
[2016-11-30] MEDS ORDERED: FUROSEMIDE 40 MG/4 ML VIAL. IVP ONE (01:45)
[2016-11-30] MEDS ORDERED: ASPIRIN 325 MG TABLET PO ONE (02:15)
[2016-11-30] MEDS ORDERED: fentaNYL PF VIAL 100 MCG/2 ML VIAL IV PRN (02:30)
[2016-11-30] MEDS ORDERED: DEXTROSE 50% 25 GM / 50ML DISP.SYRIN. IV PRN (02:30)
[2016-11-30] MEDS ORDERED: ONDANSETRON PF 4 MG/2 ML VIAL. IV PRN ×2 (02:30→13:00)
[2016-11-30] MEDS ORDERED: NITROGLYCERIN SUBLINGUAL 0.4 MG BOTTLE OF 25. SL PRN (02:30)
[2016-11-30] MEDS ORDERED: ACETAMINOPHEN 325 MG TABLET. PO PRN ×2 (02:30→13:00)
[2016-11-30 02:41] LABS: BASE EXCESS COOX 2 mmol/L (-3-3); CARBON MONOXIDE 0.3 % (0.0-1.9); HCO3 COOX 27 mmol/L (21-28); METHEMOGLOBIN 0.6 % (0.0-1.9); OXYHEMOGLOBIN 96.1 %; PCO2 COOX 42 mmHg (35-46); PH COOX 7.42 (7.35-7.45); PO2 COOX 108 mmHg (65-108); SAT O2 COOX 97 % (92-99); TOTAL HEMOGLOBIN 9.1 g/dL
[2016-11-30 03:35] LABS: BILIRUBIN,URINE NEGATIVE (NEG); GLUCOSE,URINE NEGATIVE (NEG); NITRITE,URINE NEGATIVE (NEG); PH,URINE 6.5; PROTEIN,URINE >=300 mg/dL (NEG-TRACE); UROBILINOGEN,URINE 0.2 mg/dL (0.2 mg/dL)
[2016-11-30 03:47] LABS: BACTERIA,URINE 0 /HPF (0-FEW); RBC,URINE OCC /HPF (0-2); SQUAMOUS EPITHELIAL CELL,UR OCC /LPF; WBC,URINE OCC /HPF (0-4)
--- NOTE | 2016-11-30 04:08 | ACF ---
Admission Forms Criteria RESPIRATORY FAILURE [facility] Clinical Indications for Admission to Inpatient Care (Place 'X' for any and all applicable criteria): Hospital admission is needed for appropriate care of the patient because of acute respiratory failure or insufficiency as indicated by ANY ONE of the following(1)(2)(3)(4)(5)(6)(7)(8): [X]I. Mechanical ventilation needed (acute invasive or noninvasive) [ ]II. Severe ventilation deficit as indicated by ANY ONE of the following (9) [ ]a) Respiratory acidosis (pH less than 7.32 and partial pressure of carbon dioxide greater than 40 mm Hg (5.3 kPa)) [ ]b) Partial pressure of carbon dioxide greater than 44 mm Hg (5.9 kPa ) (new) [ ]c) Airflow measurements less than 25% of predicted (eg, peak expiratory flow rate less than 100 L/minute) [ ]d) Forced vital capacity less than 15 mL/kg of ideal body weight, or 50% decrease in vital capacity from baseline [ ]III. Noncardiac pulmonary edema not resolving with rapid emergency treatment (8) [ ]IV. Severe respiratory distress as indicated by ANY ONE of the following: [ ]a) Severe tachypnea (respiratory rate greater than 30, greater than 45 for 6-month-old, greater than 60 for ) [ ]b) Severe hypoxemia (partial pressure of oxygen less than 50 mm Hg ( 6.7 kPa) on greater than 50% oxygen or partial pressure of oxygen to FIO2 ratio less than 200) [ ]c) Mental status deterioration from respiratory disease [ ]V. Airway obstruction or inadequate protection [A](10)(11) The original [employer] content created by [employer] has been revised. The portions of the content which have been revised are identified through the use of italic text or in bold, and [employer] has neither reviewed nor approved the modified material. All other unmodified content is copyright [employer]. Please see references footnoted in the original [employer] edition 2016 Admission Criteria Met?: Yes ROBIN MELO Nov 30, 2016 04:08
--- NOTE | 2016-11-30 07:00 | EKG ---
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
--- NOTE | 2016-11-30 07:02 | EKG ---
[facility] [address] [place] [address] Test Date: 2016-11-30 Test Time: 00:43:04 Pat Name: ZBIGNIEW RECINOS Department: Room: Gender: F Lead [employer]: : 1955 Requested By: DAYLIN PAN Order Number: [id number] Reading MD: Measurements Intervals [place] Rate: 87 P: 50 TX: 132 QRS: 34 QRSD: 94 T: -94 QT: 376 QTc: 453 Interpretive Statements SINUS RHYTHM LEFT ATRIAL ABNORMALITY T ABNORMALITY IN INFEROLATERAL LEADS NON SPECIFIC ST DEPRESSION RI6.01 Unconfirmed report No previous ECG available for comparison
[2016-11-30] MEDS: IPRATRPIUM/ALBUTEROL 0.5/2.5MG 3 ML NEBU. NEB SCH ×6 (07:49→19:45)
[2016-11-30] MEDS: INSULIN ASPART 300 UNITS/3 ML INSULN.PEN SQ SCH ×5 (08:00→17:20)
--- NOTE | 2016-11-30 08:10 | RAD ---
Indication shortness of breath. A single view of the chest was obtained and is compared to a study 10/18/2016. There is mild unchanged cardiomegaly. There are changes compatible with mild pulmonary vascular congestion. There is some increased density at the left lung base. This could be secondary to overlying soft tissues. Atelectasis and/or pleural fluid is not excluded. A focal process in the right lung is not seen. IMPRESSION: Stable cardiomegaly. Suspect mild pulmonary vascular congestion. Possible volume loss at the left lung base
[2016-11-30] MEDS: FUROSEMIDE 40 MG/4 ML VIAL. IVP SCH ×2 (09:00→20:46)
--- NOTE | 2016-11-30 10:23 | PDOC2 ---
CARDIAC CONSULT DATE OF CONSULT Date of Consult DATE: 11/30/16 TIME: 10:09 REASON FOR CONSULT Reason for Consult: CHF Elevated troponin REFERRING PHYSICIAN Referring Physician: Dr. Gonzalez SOURCE Source: Chart review, Patient HISTORY OF PRESENT ILLNESS HISTORY OF PRESENT ILLNESS This is a 61 yo female, with a history of diastolic CHF, pulmonary HTN, and COPD , who presented with complaints of shortness of breath. Patient reports pain has been ongoing for the last couple of days. Worse yesterday after going out to the grocery store. Uses O2 at home; does not wear outside the home, including when at the store yesterday. Denies any chest pain, palpitations, dizziness, diaphoresis, or n/v. Has had some LE edema for "awhile." Reports compliance with medications including diuretic therapy. PAST MEDICAL HISTORY Past Medical History Cardiovascular: CHF (diastolic), HTN, HLP Pulmonary: COPD, Other (pulmonary HTN - PA 42) GI: Other (morbid obesity) Endocrine: Diabetes (type II, uncontrolled; A1C = 9, 09/2016) PAST SURGICAL HISTORY Past Surgical History: Tonsillectomy FAMILY HISTORY Family History: Cancer, Hypertension SOCIAL HISTORY Smoke: <1 pack per day ALCOHOL: none Drugs: None, Other (UDS + for cocaine 10/18/16) Lives: Alone CURRENT MEDICATIONS CURRENT MEDICATIONS Current Medications Medications (Trade) Dose Ordered Sig/Rob Route PRN Reason Start Time Stop Time Status Last Admin Dose Admin Furosemide (Lasix) 40 mg 1X ONCE IVP 11/30/16 01:45 11/30/16 01:46 DC 11/30/16 02:03 Aspirin (Miguel Aspirin) 325 mg 1X ONCE PO 11/30/16 02:15 11/30/16 02:16 DC 11/30/16 02:04 Albuterol/ Ipratropium (Duoneb) 3 ml RTQID NEB 11/30/16 08:00 12/01/16 07:59 11/30/16 07:49 ALLERGIES ALLERGIES: Coded Allergies: No Known Drug Allergies (Unverified , 06/10/14) ROS Review of System 14 point ROS conducted with pertinent positives noted above in HPI. PHYSICAL EXAM PHYSICAL EXAM General: Alert, oriented X3, cooperative, NAD HEENT: Atraumatic, PERRLA Lungs: Other (diminished anteriorly, fine expiratory wheezes bilateral lobes) Heart: Normal S1, Normal S2, No murmurs Abdomen: Normal bowel sounds, Soft, Other (truncal obesity) Extremities: Normal pulses, Other (1+ bilateral LE edema) Skin: No rashes, no significant lesions Psych/Mental Status: Mental status NL, Mood NL MUSCULOSKELETAL: No joint deformities VITALS VITALS Vital Signs Date Time Temp Pulse Resp B/P (MAP) Pulse Ox O2 Delivery O2 Flow Rate FiO2 11/30/16 07:49 92 Nasal Cannula 3.0 11/30/16 06:00 74 22 179/78 (111) 11/30/16 03:30 99.3 99.3 LABS Lab: Laboratory Tests Test 11/30/16 00:50 11/30/16 02:15 11/30/16 03:15 11/30/16 08:21 White Blood Count 14.8 x10^3/uL (4.0-11.0) Red Blood Count 3.34 x10^6/uL (3.50-5.40) Hemoglobin 9.0 g/dL (12.0-15.5) Hematocrit 28.4 % (36.0-47.0) Mean Corpuscular Volume 85 fL (79-100) Mean Corpuscular Hemoglobin 27 pg (25-35) Mean Corpuscular Hemoglobin Concent 32 g/dL (31-37) Red Cell Distribution Width 16.9 % (11.5-14.5) Platelet Count 353 x10^3/uL (140-400) Neutrophils (%) (Auto) 82 % (31-73) Lymphocytes (%) (Auto) 8 % (24-48) Monocytes (%) (Auto) 9 % (0-9) Eosinophils (%) (Auto) 1 % (0-3) Basophils (%) (Auto) 1 % (0-3) Neutrophils # (Auto) 12.1 x10^3uL (1.8-7.7) Lymphocytes # (Auto) 1.2 x10^3/uL (1.0-4.8) Monocytes # (Auto) 1.3 x10^3/uL (0.0-1.1) Eosinophils # (Auto) 0.1 x10^3/uL (0.0-0.7) Basophils # (Auto) 0.1 x10^3/uL (0.0-0.2) Sodium Level 141 mmol/L (136-145) Potassium Level 3.6 mmol/L (3.5-5.1) Chloride Level 102 mmol/L (98-107) Carbon Dioxide Level 30 mmol/L (21-32) Anion Gap 9 (6-14) Blood Urea Nitrogen 17 mg/dL (7-20) Creatinine 1.5 mg/dL (0.6-1.0) Estimated GFR (Cockcroft-Gault) 43.0 BUN/Creatinine Ratio 11 (6-20) Glucose Level 254 mg/dL (70-99) Calcium Level 9.0 mg/dL (8.5-10.1) Total Bilirubin 0.6 mg/dL (0.2-1.0) Aspartate Amino Transf (AST/SGOT) 16 U/L (15-37) Alanine Aminotransferase (ALT/SGPT) 16 U/L (14-59) Alkaline Phosphatase 280 U/L (46-116) Troponin I Quantitative 0.800 ng/mL (0.000-0.055) HC-Qme-E-Type Natriuretic Peptide 61937 pg/mL (0-124) Total Protein 7.5 g/dL (6.4-8.2) Albumin 3.0 g/dL (3.4-5.0) Albumin/Globulin Ratio 0.7 (1.0-1.7) O2 Saturation 97 % (92-99) Arterial Blood pH 7.42 (7.35-7.45) Arterial Blood pCO2 at Patient Temp 42 mmHg (35-46) Arterial Blood pO2 at Patient Temp 108 mmHg (65-108) Arterial Blood HCO3 27 mmol/L (21-28) Arterial Blood Base Excess 2 mmol/L (-3-3) Oxyhemoglobin 96.1 % Methemoglobin 0.6 % (0.0-1.9) Carbon Monoxide, Quantitative 0.3 % (0.0-1.9) Urine Collection Type U cath Urine Color Yellow Urine Clarity Clear Urine pH 6.5 Urine Specific [place] 1.010 Urine Protein >=300 mg/dL (NEG-TRACE) Urine Glucose (UA) Negative mg/dL (NEG) Urine Ketones (Stick) Negative mg/dL (NEG) Urine Blood Negative (NEG) Urine Nitrite Negative (NEG) Urine Bilirubin Negative (NEG) Urine Urobilinogen Dipstick 0.2 mg/dL (0.2 mg/dL) Urine Leukocyte Esterase Negative (NEG) Urine RBC Occ /HPF (0-2) Urine WBC Occ /HPF (0-4) Urine Squamous Epithelial Cells Occ /LPF Urine Transitional Epithelial Cells Occ /LPF Urine Renal Epithelial Cells Occ /LPF Urine Bacteria 0 /HPF (0-FEW) Urine Hyaline Casts Few /HPF Urine Mucus Slight /LPF Glucose (Fingerstick) 193 mg/dL (70-99) Test 11/30/16 08:30 Troponin I Quantitative 0.962 ng/mL (0.000-0.055) ECHOCARDIOGRAM ECHOCARDIOGRAM <Conclusion> The left ventricle is normal size. Left ventricle systolic function is normal. The Ejection Fraction is 55-60%. There is mild concentric left ventricular hypertrophy. There is no significant aortic valvular stenosis. Doppler and Color Flow revealed no significant aortic regurgitation. Doppler and Color Flow revealed mild mitral regurgitation. Doppler and Color Flow revealed mild tricuspid regurgitation. The PA pressure was estimated at 44 mmHg. DATE: 10/13/16 1618 HEART CATH HEART CATH FINDINGS 1. Hemodynamics: Left ventricular end-diastolic pressure 25 mmHg. No pullback gradient across the aortic valve. 2. Coronary angiography: a. The left main coronary artery arose from the left sinus of Valsalva, gave rise to the left anterior descending and left circumflex arteries and did not show any significant stenosis. b. The left anterior descending artery showed 40% stenosis in the midsegment. c. The left circumflex artery was a large and dominant vessel showed 70% stenosis involving the proximal segment of a medium caliber first obtuse marginal branch that showed severe diffuse disease distally. The second obtuse marginal branch showed 50% stenosis in the proximal to midsegment. d. The right coronary artery was a small and nondominant vessel that showed severe diffuse disease distally. Conclusion Nonobstructive coronary artery disease DATE: 09/26/15 1253 ASSESSMENT/PLAN ASSESSMENT/PLAN 1. Acute on chronic diastolic HF; CXR with vascular congestion. Improved post IV Lasx. Preserved LV function on recent echo 2. NSTEMI; highest trop 0.962. Most probably type II, demand ischemia secondary to hypoxia, CHF, and malignant HTN. CP free. EKG without significant acute changes. Cath last year without obstructive disease as noted above. Lipids on goal 3. Acute on chronic respiratory failure secondary to acute HF. initially requiring BiPAP, now on NC. per pulm 4. Pulmonary HTN; PAP 44 5. Malignant Hypertension; improved but remains labile 6. DM, II; uncontrolled. Per PCP 7. CKD; Cr stable 8. Tobaccoism; cessation encouraged 9. Substance abuse; recent UDS + for cocaine- cessation discussed and encouraged Recommendations Trend troponin Resume home antiHTN therapy. Monitor trends to assess need for therapy titration Continue diuresis with monitoring or renal function Problems: SAM WELSH APRN Nov 30, 2016 10:23
[2016-11-30] MEDS ORDERED: ALBUTEROL SULFATE 2.5 MG/3 ML NEBU. NEB PRN (11:00)
[2016-11-30] MEDS: PANTOPRAZOLE 40 MG TABLET.DR. PO SCH (12:35)
[2016-11-30] MEDS: HYDROcodone/APAP 5/325MG 1 TAB TABLET PO PRN ×3 (12:35→22:06)
[2016-11-30] MEDS: cloNIDine HCL 0.2 MG TABLET PO SCH ×2 (12:36→20:45)
[2016-11-30] MEDS: amLODIPine BESYLATE 10 MG TABLET PO SCH (12:37)
[2016-11-30] MEDS ORDERED: DOCUSATE SODIUM 100 MG CAPSULE. PO PRN (13:00)
[2016-11-30] MEDS ORDERED: MORPHINE SULFATE 2 MG/ML DISP.SYRIN. IV PRN (13:00)
[2016-11-30] MEDS ORDERED: hydrALAZINE 20 MG/ML VIAL. IVP PRN (13:00)
--- NOTE | 2016-11-30 13:10 | PDOC1 ---
History and Physical Date of Admission Date of Admission 11/29/16 Identification/Chief Complaint Chief Complaint sob Problems: Source Source: Chart review, Patient History of Present Illness History of Present Illness HPI HPI Patient is a 61 year old woman, history of CHF, COPD, uses 3 L of nasal cannula oxygen when necessary, type 2 diabetes mellitus, obesity, living at home alone, with someone helping daily, came TO ER for sob. Pt said she has been using her home o2, feels sob for 2 days. didnot use it when went to grocery yesterday, then started to feel sob worse, with mild cough with some mucus. Denies fever, chills, N/V, chest pain, abd pain. takes lasix 40mg daily. EMS states that when they arrived she was not using her somal oxygen, and oxygen saturation was 76%, patient was tachypnic dyspnea, laboratory rate in the upper 30s. Patient was laced on a nonrebreather, and received a DuoNeb. On nonrebreather, patient currently has not saturation of 93%. better with bipap in ICU overnight. now on NC 3l. Past Medical History Cardiovascular: CHF, HTN Pulmonary: COPD, Other GI: Other Heme/Onc: Anemia NOS Psych: Anxiety Endocrine: Diabetes Past Surgical History Past Surgical History: Tonsillectomy Family History Family History: Cancer, Hypertension Social History Smoke: Quit ALCOHOL: none Drugs: None, Other (UDS + for cocaine 10/18/16) Current Problem List Problem List Problems Medical Problems: (1) Acute respiratory failure with hypoxia Status: Acute (2) CHF (congestive heart failure) Status: Acute Current Medications Current Medications Current Medications Medications (Trade) Dose Ordered Sig/Rob Start Time Stop Time Status Last Admin Dose Admin Acetaminophen (Tylenol) 650 mg PRN Q4HRS PRN 11/30/16 02:30 12/01/16 02:29 Acetaminophen/ Hydrocodone Bitart (Lortab 5/325) 1 tab PRN Q6HRS PRN 11/30/16 10:45 11/30/16 12:35 1 TAB Albuterol Sulfate (Ventolin Neb Soln) 2.5 mg PRN Q4HRS PRN 11/30/16 11:00 Albuterol/ Ipratropium (Duoneb) 3 ml RTQID 11/30/16 08:00 12/01/16 07:59 11/30/16 11:47 3 ML Amlodipine Besylate (Norvasc) 10 mg DAILY 11/30/16 11:00 11/30/16 12:37 10 MG Aspirin (Miguel Aspirin) 325 mg 1X ONCE 11/30/16 02:15 11/30/16 02:16 DC 11/30/16 02:04 325 MG Atorvastatin Calcium (Lipitor) 40 mg QHS 11/30/16 21:00 Carvedilol (Coreg) 25 mg BIDWMEALS 11/30/16 17:00 Clonidine HCl (Catapres) 0.2 mg BID 11/30/16 11:00 11/30/16 12:36 0.2 MG Dextrose (Dextrose 50%-Water Syringe) 12.5 gm PRN Q15MIN PRN 11/30/16 02:30 Fentanyl Citrate (Fentanyl 2ml Vial) 50 mcg PRN Q2HR PRN 11/30/16 02:30 12/01/16 02:29 Furosemide (Lasix) 40 mg Q12HR 11/30/16 09:00 11/30/16 09:00 40 MG Glipizide (Glucotrol) 5 mg BIDBFRMEAL 11/30/16 16:30 Hydralazine HCl (Apresoline) 100 mg Q8HRS 11/30/16 14:00 Insulin Aspart (NovoLOG) 10 units TIDAC 11/30/16 11:30 11/30/16 12:25 10 UNITS Insulin Detemir (Levemir) 30 units QHS 11/30/16 21:00 Nitroglycerin (Nitrostat) 0.4 mg PRN Q5MIN PRN 11/30/16 02:30 12/01/16 02:29 Ondansetron HCl (Zofran) 4 mg PRN Q8HRS PRN 11/30/16 02:30 12/01/16 02:29 Pantoprazole Sodium (Protonix) 40 mg DAILYAC 11/30/16 11:00 11/30/16 12:35 40 MG Allergies Allergies Allergies Coded Allergies Type Severity Reaction Last Updated Verified No Known Drug Allergies 06/10/14 No ROS Review of System CONSTITUTIONAL: No fever or chills EYES: No recent changes SKIN: No rash or itching CARDIOVASCULAR: No chest pain, syncope, palpitations, or edema RESPIRATORY: No SOB or cough GASTROINTESTINAL: No nausea, vomiting or abdominal pain NEUROLOGICAL: No headaches or weakness ENDOCRINE: No cold or heat intolerance GENITOURINARY: No urgency or frequency of urination MUSCULOSKELETAL: No back pain or joint pain LYMPHATICS: No enlarged lymph nodes PSYCHIATRIC: No anxiety or depression Physical Exam Physical Exam GEN.: No apparent distress. Alert and oriented. HEENT: Head is normocephalic, atraumatic NECK: Supple. LUNGS: bl basilar mild crackles HEART: RRR, S1, S2 present. Peripheral pulses intact ABDOMEN: Soft, nontender. Positive bowel sounds. EXTREMITIES: Without any cyanosis. bl feet 1+ edema NEUROLOGIC: Normal speech, normal tone PSYCHIATRIC: Normal affect, normal mood. SKIN: No ulcerations Vitals Vitals Vital Signs Date Time Temp Pulse Resp B/P (MAP) Pulse Ox O2 Delivery O2 Flow Rate FiO2 11/30/16 12:37 190/83 11/30/16 12:00 Nasal Cannula 3.0 11/30/16 11:47 92 11/30/16 06:00 74 22 11/30/16 03:30 99.3 99.3 Labs Labs Laboratory Tests Test 11/30/16 00:50 11/30/16 02:15 11/30/16 03:15 11/30/16 08:21 White Blood Count 14.8 x10^3/uL (4.0-11.0) Red Blood Count 3.34 x10^6/uL (3.50-5.40) Hemoglobin 9.0 g/dL (12.0-15.5) Hematocrit 28.4 % (36.0-47.0) Mean Corpuscular Volume 85 fL (79-100) Mean Corpuscular Hemoglobin 27 pg (25-35) Mean Corpuscular Hemoglobin Concent 32 g/dL (31-37) Red Cell Distribution Width 16.9 % (11.5-14.5) Platelet Count 353 x10^3/uL (140-400) Neutrophils (%) (Auto) 82 % (31-73) Lymphocytes (%) (Auto) 8 % (24-48) Monocytes (%) (Auto) 9 % (0-9) Eosinophils (%) (Auto) 1 % (0-3) Basophils (%) (Auto) 1 % (0-3) Neutrophils # (Auto) 12.1 x10^3uL (1.8-7.7) Lymphocytes # (Auto) 1.2 x10^3/uL (1.0-4.8) Monocytes # (Auto) 1.3 x10^3/uL (0.0-1.1) Eosinophils # (Auto) 0.1 x10^3/uL (0.0-0.7) Basophils # (Auto) 0.1 x10^3/uL (0.0-0.2) Sodium Level 141 mmol/L (136-145) Potassium Level 3.6 mmol/L (3.5-5.1) Chloride Level 102 mmol/L (98-107) Carbon Dioxide Level 30 mmol/L (21-32) Anion Gap 9 (6-14) Blood Urea Nitrogen 17 mg/dL (7-20) Creatinine 1.5 mg/dL (0.6-1.0) Estimated GFR (Cockcroft-Gault) 43.0 BUN/Creatinine Ratio 11 (6-20) Glucose Level 254 mg/dL (70-99) Calcium Level 9.0 mg/dL (8.5-10.1) Total Bilirubin 0.6 mg/dL (0.2-1.0) Aspartate Amino Transf (AST/SGOT) 16 U/L (15-37) Alanine Aminotransferase (ALT/SGPT) 16 U/L (14-59) Alkaline Phosphatase 280 U/L (46-116) Troponin I Quantitative 0.800 ng/mL (0.000-0.055) BM-Efm-N-Type Natriuretic Peptide 93693 pg/mL (0-124) Total Protein 7.5 g/dL (6.4-8.2) Albumin 3.0 g/dL (3.4-5.0) Albumin/Globulin Ratio 0.7 (1.0-1.7) O2 Saturation 97 % (92-99) Arterial Blood pH 7.42 (7.35-7.45) Arterial Blood pCO2 at Patient Temp 42 mmHg (35-46) Arterial Blood pO2 at Patient Temp 108 mmHg (65-108) Arterial Blood HCO3 27 mmol/L (21-28) Arterial Blood Base Excess 2 mmol/L (-3-3) Oxyhemoglobin 96.1 % Methemoglobin 0.6 % (0.0-1.9) Carbon Monoxide, Quantitative 0.3 % (0.0-1.9) Urine Collection Type U cath Urine Color Yellow Urine Clarity Clear Urine pH 6.5 Urine Specific [place] 1.010 Urine Protein >=300 mg/dL (NEG-TRACE) Urine Glucose (UA) Negative mg/dL (NEG) Urine Ketones (Stick) Negative mg/dL (NEG) Urine Blood Negative (NEG) Urine Nitrite Negative (NEG) Urine Bilirubin Negative (NEG) Urine Urobilinogen Dipstick 0.2 mg/dL (0.2 mg/dL) Urine Leukocyte Esterase Negative (NEG) Urine RBC Occ /HPF (0-2) Urine WBC Occ /HPF (0-4) Urine Squamous Epithelial Cells Occ /LPF Urine Transitional Epithelial Cells Occ /LPF Urine Renal Epithelial Cells Occ /LPF Urine Bacteria 0 /HPF (0-FEW) Urine Hyaline Casts Few /HPF Urine Mucus Slight /LPF Glucose (Fingerstick) 193 mg/dL (70-99) Test 11/30/16 08:30 11/30/16 12:21 Troponin I Quantitative 0.962 ng/mL (0.000-0.055) Glucose (Fingerstick) 211 mg/dL (70-99) Laboratory Tests Test 11/30/16 00:50 11/30/16 02:15 11/30/16 03:15 11/30/16 08:21 White Blood Count 14.8 x10^3/uL (4.0-11.0) Red Blood Count 3.34 x10^6/uL (3.50-5.40) Hemoglobin 9.0 g/dL (12.0-15.5) Hematocrit 28.4 % (36.0-47.0) Mean Corpuscular Volume 85 fL (79-100) Mean Corpuscular Hemoglobin 27 pg (25-35) Mean Corpuscular Hemoglobin Concent 32 g/dL (31-37) Red Cell Distribution Width 16.9 % (11.5-14.5) Platelet Count 353 x10^3/uL (140-400) Neutrophils (%) (Auto) 82 % (31-73) Lymphocytes (%) (Auto) 8 % (24-48) Monocytes (%) (Auto) 9 % (0-9) Eosinophils (%) (Auto) 1 % (0-3) Basophils (%) (Auto) 1 % (0-3) Neutrophils # (Auto) 12.1 x10^3uL (1.8-7.7) Lymphocytes # (Auto) 1.2 x10^3/uL (1.0-4.8) Monocytes # (Auto) 1.3 x10^3/uL (0.0-1.1) Eosinophils # (Auto) 0.1 x10^3/uL (0.0-0.7) Basophils # (Auto) 0.1 x10^3/uL (0.0-0.2) Sodium Level 141 mmol/L (136-145) Potassium Level 3.6 mmol/L (3.5-5.1) Chloride Level 102 mmol/L (98-107) Carbon Dioxide Level 30 mmol/L (21-32) Anion Gap 9 (6-14) Blood Urea Nitrogen 17 mg/dL (7-20) Creatinine 1.5 mg/dL (0.6-1.0) Estimated GFR (Cockcroft-Gault) 43.0 BUN/Creatinine Ratio 11 (6-20) Glucose Level 254 mg/dL (70-99) Calcium Level 9.0 mg/dL (8.5-10.1) Total Bilirubin 0.6 mg/dL (0.2-1.0) Aspartate Amino Transf (AST/SGOT) 16 U/L (15-37) Alanine Aminotransferase (ALT/SGPT) 16 U/L (14-59) Alkaline Phosphatase 280 U/L (46-116) Troponin I Quantitative 0.800 ng/mL (0.000-0.055) JJ-Shh-R-Type Natriuretic Peptide 29127 pg/mL (0-124) Total Protein 7.5 g/dL (6.4-8.2) Albumin 3.0 g/dL (3.4-5.0) Albumin/Globulin Ratio 0.7 (1.0-1.7) O2 Saturation 97 % (92-99) Arterial Blood pH 7.42 (7.35-7.45) Arterial Blood pCO2 at Patient Temp 42 mmHg (35-46) Arterial Blood pO2 at Patient Temp 108 mmHg (65-108) Arterial Blood HCO3 27 mmol/L (21-28) Arterial Blood Base Excess 2 mmol/L (-3-3) Oxyhemoglobin 96.1 % Methemoglobin 0.6 % (0.0-1.9) Carbon Monoxide, Quantitative 0.3 % (0.0-1.9) Urine Collection Type U cath Urine Color Yellow Urine Clarity Clear Urine pH 6.5 Urine Specific [place] 1.010 Urine Protein >=300 mg/dL (NEG-TRACE) Urine Glucose (UA) Negative mg/dL (NEG) Urine Ketones (Stick) Negative mg/dL (NEG) Urine Blood Negative (NEG) Urine Nitrite Negative (NEG) Urine Bilirubin Negative (NEG) Urine Urobilinogen Dipstick 0.2 mg/dL (0.2 mg/dL) Urine Leukocyte Esterase Negative (NEG) Urine RBC Occ /HPF (0-2) Urine WBC Occ /HPF (0-4) Urine Squamous Epithelial Cells Occ /LPF Urine Transitional Epithelial Cells Occ /LPF Urine Renal Epithelial Cells Occ /LPF Urine Bacteria 0 /HPF (0-FEW) Urine Hyaline Casts Few /HPF Urine Mucus Slight /LPF Glucose (Fingerstick) 193 mg/dL (70-99) Test 11/30/16 08:30 11/30/16 12:21 Troponin I Quantitative 0.962 ng/mL (0.000-0.055) Glucose (Fingerstick) 211 mg/dL (70-99) VTE Prophylaxis Ordered VTE Prophylaxis Devices: Yes VTE Pharmacological Prophylaxi: Yes Assessment/Plan Assessment/Plan dyspnea, acute on chronic hypoxic resp failure with diastolic CHF exacerbation Diastolic CHF with Recent ECho EF 55%, cath neg copd recent quit smoking dm2 on insulin htn morbid obesity elevated troponin with CHF ckd3 leukocytosis, reactive mild malnutrition plan: card, pulm consult on lasix iv 40mg bid now, watch CR BIPAP prn, now NC 3 L IS OK cont home meds decrease levemir to 30u qhs, aspart 10u tid, ssi ptot dvt ppx duoneb ok to transfer out of icu ABIMAEL VALDIVIA MD Nov 30, 2016 13:10
[2016-11-30] MEDS: traMADol 50 MG TABLET PO PRN (15:19)
--- NOTE | 2016-11-30 17:10 | PDOC2 ---
CONSULT Date of Consult Date of Consult DATE: 11/30/16 TIME: 17:02 Reason for Consult Reason for Consult: PT ON BIPAP Identification/Chief Complaint Chief Complaint INCREASE CHINEDU Problems: Source Source: Chart review, Patient History of Present Illness Reason for Visit: PT WELL KNOWN TO ME FROM PREVIOUS HOSPITILIZATION NOT A VERY GOOD HISTORIAN DOES NOT KNOW WHO PRESCRIBED 02 AT HOME WENT OUTDOOR YESTERDAY WITHOUT 02 HAD CPAP AT HOME BUT CAN NOT FIND IT PRESENT TO ER WITH INCREASE SOA FOR 2-3 DAY, INCREASE LOWER EDEMA NO FEVER CHILL COUGH BROWN MUCUS, SMOKES Past Medical History Cardiovascular: CHF, HTN Pulmonary: COPD, Other (CHRONIC RESP FAILURE) GI: Other Heme/Onc: Anemia NOS Psych: Anxiety Musculoskeletal: Osteoarthritis Endocrine: Diabetes Past Surgical History Past Surgical History: Tonsillectomy Family History Family History: Cancer, Hypertension Social History Quit ALCOHOL: none Drugs: None, Other (UDS + for cocaine 10/18/16) Lives: Alone Current Problem List Problem List Problems Medical Problems: (1) Acute respiratory failure with hypoxia Status: Acute (2) CHF (congestive heart failure) Status: Acute Current Medications Current Medications Current Medications Furosemide (Lasix) 40 mg 1X ONCE IVP Last administered on 11/30/16 02:03; Start 11/30/16 at 01:45; Stop 11/30/16 at 01:46; Status DC Aspirin (Miguel Aspirin) 325 mg 1X ONCE PO Last administered on 11/30/16 02:04 ; Start 11/30/16 at 02:15; Stop 11/30/16 at 02:16; Status DC Ondansetron HCl (Zofran) 4 mg PRN Q8HRS PRN IV NAUSEA/VOMITING; Start 11/30/16 at 02:30; Stop 12/01/16 at 02:29 Fentanyl Citrate (Fentanyl 2ml Vial) 50 mcg PRN Q2HR PRN IV PAIN Last administered on 11/30/16 08:01; Start 11/30/16 at 02:30; Stop 12/01/16 at 02:29 Acetaminophen (Tylenol) 650 mg PRN Q4HRS PRN PO FEVER; Start 11/30/16 at 02:30 ; Stop 12/01/16 at 02:29 Nitroglycerin (Nitrostat) 0.4 mg PRN Q5MIN PRN SL CHEST PAIN; Start 11/30/16 at 02:30; Stop 12/01/16 at 02:29 Albuterol/ Ipratropium (Duoneb) 3 ml RTQID NEB Last administered on 11/30/16 15:58; Start 11/30/16 at 08:00; Stop 12/01/16 at 07:59 Insulin Aspart (NovoLOG) 0-5 UNITS TIDWMEALS SQ Last administered on 11/30/16 08:00; Start 11/30/16 at 08:00 Dextrose (Dextrose 50%-Water Syringe) 12.5 gm PRN Q15MIN PRN IV SEE COMMENTS; Start 11/30/16 at 02:30 Furosemide (Lasix) 40 mg Q12HR IVP Last administered on 11/30/16 09:00; Start 11/30/16 at 09:00 Amlodipine Besylate (Norvasc) 10 mg DAILY PO Last administered on 11/30/16 12: 37; Start 11/30/16 at 11:00 Atorvastatin Calcium (Lipitor) 40 mg QHS PO ; Start 11/30/16 at 21:00 Clonidine HCl (Catapres) 0.2 mg BID PO Last administered on 11/30/16 12:36; Start 11/30/16 at 11:00 Hydralazine HCl (Apresoline) 100 mg Q8HRS PO Last administered on 11/30/16 15: 11; Start 11/30/16 at 14:00 Acetaminophen/ Hydrocodone Bitart (Lortab 5/325) 1 tab PRN Q6HRS PRN PO SEVERE PAIN Last administered on 11/30/16 12:35; Start 11/30/16 at 10:45 Insulin Aspart (NovoLOG) 10 units TIDAC SQ Last administered on 11/30/16 12:25 ; Start 11/30/16 at 11:30 Albuterol Sulfate (Ventolin Neb Soln) 2.5 mg PRN Q4HRS PRN NEB SOA; Start 11/30 at 11:00 Carvedilol (Coreg) 25 mg BIDWMEALS PO ; Start 11/30/16 at 17:00 Glipizide (Glucotrol) 5 mg BIDBFRMEAL PO ; Start 11/30/16 at 16:30 Pantoprazole Sodium (Protonix) 40 mg DAILYAC PO Last administered on 7/18/17at 12:35; Start 11/30/16 at 11:00 Insulin Detemir (Levemir) 30 units QHS SQ ; Start 11/30/16 at 21:00 Acetaminophen (Tylenol) 650 mg PRN Q6HRS PRN PO FEVER; Start 11/30/16 at 13:00 Ondansetron HCl (Zofran) 4 mg PRN Q6HRS PRN IV NAUSEA/VOMITING; Start 11/30/16 at 13:00 Morphine Sulfate 2 mg PRN Q2HR PRN IV PAIN; Start 11/30/16 at 13:00 Tramadol HCl (Ultram) 50 mg PRN Q6HRS PRN PO PAIN Last administered on t 15:19; Start 11/30/16 at 13:00 Hydralazine HCl (Apresoline) 10 mg PRN Q4HRS PRN IVP ELEVATED BP, SEE COMMENTS ; Start 11/30/16 at 13:00 Docusate Sodium (Colace) 100 mg PRN DAILY PRN PO CONSTIPATION; Start 11/30/16 at 13:00 Albuterol/ Ipratropium (Duoneb) 3 ml RTQID NEB ; Start 11/30/16 at 16:00 Enoxaparin Sodium (Lovenox 40mg Syringe) 40 mg BID SQ ; Start 11/30/16 at 21:00 Active Scripts Active [place] 5-325 Tablet (Acetaminophen/Hydrocodone Bitart) 1 Each Tablet 1-2 Tab PO Q4-6HRS PRN Amlodipine Besylate 10 Mg Tablet 10 Mg PO DAILY Novolog Flexpen (Insulin Aspart) 100 Unit/1 Ml Insuln.pen 10 Units SQ TIDAC Hydralazine Hcl 50 Mg Tablet 100 Mg PO Q8HRS Furosemide 40 Mg Tablet 40 Mg PO DAILY Reported Wang Recinosostar (Insulin Glargine,Hum.rec.anlog) 300 Unit/1 Ml Insuln.pen 36 Unit SQ HS Atorvastatin Calcium 40 Mg Tablet 1 Tab PO DAILY Omeprazole 40 Mg Capsule.dr 1 Cap PO DAILY Ventolin Hfa Inhaler (Albuterol Sulfate) 18 Gm Hfa.aer.ad 2 Puff IH PRN Q4-6HRS Percocet 10-325 Mg Tablet (Oxycodone/Acetaminophen) 1 Each Tablet 1 Tab PO Q4- 6HRS Glipizide 10 Mg Tablet 1 Tab PO BIDAC Clonidine Hcl 0.2 Mg Tablet 1 Tab PO BID Coreg (Carvedilol) 25 Mg Tablet 1 Tab PO [id number] Allergies Allergies: Coded Allergies: No Known Drug Allergies (Unverified , 06/10/14) ROS Review of System HPI OTHERWISE NEGATIVE Physical Exam Physical Exam OFF BIPAP NAD General: Alert, No acute distress HEENT: EOMI Heart: Regular rate, Normal S1, Normal S2 Abdomen: Normal bowel sounds, Soft, Other (OBESE) Extremities: No clubbing, No cyanosis Skin: No rashes, No breakdown Neuro: Normal gait, Normal speech Psych/Mental Status: Mental status NL Vitals VITALS Vital Signs Date Time Temp Pulse Resp B/P (MAP) Pulse Ox O2 Delivery O2 Flow Rate FiO2 11/30/16 16:00 92 Nasal Cannula 3.0 11/30/16 15:11 195/78 11/30/16 12:00 98.5 68 28 98.5 Labs Labs Laboratory Tests Test 11/30/16 00:50 11/30/16 02:15 11/30/16 03:15 11/30/16 03:47 White Blood Count 14.8 x10^3/uL (4.0-11.0) Red Blood Count 3.34 x10^6/uL (3.50-5.40) Hemoglobin 9.0 g/dL (12.0-15.5) Hematocrit 28.4 % (36.0-47.0) Mean Corpuscular Volume 85 fL (79-100) Mean Corpuscular Hemoglobin 27 pg (25-35) Mean Corpuscular Hemoglobin Concent 32 g/dL (31-37) Red Cell Distribution Width 16.9 % (11.5-14.5) Platelet Count 353 x10^3/uL (140-400) Neutrophils (%) (Auto) 82 % (31-73) Lymphocytes (%) (Auto) 8 % (24-48) Monocytes (%) (Auto) 9 % (0-9) Eosinophils (%) (Auto) 1 % (0-3) Basophils (%) (Auto) 1 % (0-3) Neutrophils # (Auto) 12.1 x10^3uL (1.8-7.7) Lymphocytes # (Auto) 1.2 x10^3/uL (1.0-4.8) Monocytes # (Auto) 1.3 x10^3/uL (0.0-1.1) Eosinophils # (Auto) 0.1 x10^3/uL (0.0-0.7) Basophils # (Auto) 0.1 x10^3/uL (0.0-0.2) Sodium Level 141 mmol/L (136-145) Potassium Level 3.6 mmol/L (3.5-5.1) Chloride Level 102 mmol/L (98-107) Carbon Dioxide Level 30 mmol/L (21-32) Anion Gap 9 (6-14) Blood Urea Nitrogen 17 mg/dL (7-20) Creatinine 1.5 mg/dL (0.6-1.0) Estimated GFR (Cockcroft-Gault) 43.0 BUN/Creatinine Ratio 11 (6-20) Glucose Level 254 mg/dL (70-99) Calcium Level 9.0 mg/dL (8.5-10.1) Total Bilirubin 0.6 mg/dL (0.2-1.0) Aspartate Amino Transf (AST/SGOT) 16 U/L (15-37) Alanine Aminotransferase (ALT/SGPT) 16 U/L (14-59) Alkaline Phosphatase 280 U/L (46-116) Troponin I Quantitative 0.800 ng/mL (0.000-0.055) RT-Bwc-T-Type Natriuretic Peptide 46770 pg/mL (0-124) Total Protein 7.5 g/dL (6.4-8.2) Albumin 3.0 g/dL (3.4-5.0) Albumin/Globulin Ratio 0.7 (1.0-1.7) O2 Saturation 97 % (92-99) Arterial Blood pH 7.42 (7.35-7.45) Arterial Blood pCO2 at Patient Temp 42 mmHg (35-46) Arterial Blood pO2 at Patient Temp 108 mmHg (65-108) Arterial Blood HCO3 27 mmol/L (21-28) Arterial Blood Base Excess 2 mmol/L (-3-3) Oxyhemoglobin 96.1 % Methemoglobin 0.6 % (0.0-1.9) Carbon Monoxide, Quantitative 0.3 % (0.0-1.9) Urine Collection Type U cath Urine Color Yellow Urine Clarity Clear Urine pH 6.5 Urine Specific Pillow 1.010 Urine Protein >=300 mg/dL (NEG-TRACE) Urine Glucose (UA) Negative mg/dL (NEG) Urine Ketones (Stick) Negative mg/dL (NEG) Urine Blood Negative (NEG) Urine Nitrite Negative (NEG) Urine Bilirubin Negative (NEG) Urine Urobilinogen Dipstick 0.2 mg/dL (0.2 mg/dL) Urine Leukocyte Esterase Negative (NEG) Urine RBC Occ /HPF (0-2) Urine WBC Occ /HPF (0-4) Urine Squamous Epithelial Cells Occ /LPF Urine Transitional Epithelial Cells Occ /LPF Urine Renal Epithelial Cells Occ /LPF Urine Bacteria 0 /HPF (0-FEW) Urine Hyaline Casts Few /HPF Urine Mucus Slight /LPF Nasal Screen MRSA (PCR) Negative (Negative) Test 11/30/16 08:21 11/30/16 08:30 11/30/16 12:21 11/30/16 13:55 Glucose (Fingerstick) 193 mg/dL (70-99) 211 mg/dL (70-99) Troponin I Quantitative 0.962 ng/mL (0.000-0.055) 0.670 ng/mL (0.000-0.055) Laboratory Tests Test 11/30/16 00:50 11/30/16 02:15 11/30/16 03:15 11/30/16 03:47 White Blood Count 14.8 x10^3/uL (4.0-11.0) Red Blood Count 3.34 x10^6/uL (3.50-5.40) Hemoglobin 9.0 g/dL (12.0-15.5) Hematocrit 28.4 % (36.0-47.0) Mean Corpuscular Volume 85 fL (79-100) Mean Corpuscular Hemoglobin 27 pg (25-35) Mean Corpuscular Hemoglobin Concent 32 g/dL (31-37) Red Cell Distribution Width 16.9 % (11.5-14.5) Platelet Count 353 x10^3/uL (140-400) Neutrophils (%) (Auto) 82 % (31-73) Lymphocytes (%) (Auto) 8 % (24-48) Monocytes (%) (Auto) 9 % (0-9) Eosinophils (%) (Auto) 1 % (0-3) Basophils (%) (Auto) 1 % (0-3) Neutrophils # (Auto) 12.1 x10^3uL (1.8-7.7) Lymphocytes # (Auto) 1.2 x10^3/uL (1.0-4.8) Monocytes # (Auto) 1.3 x10^3/uL (0.0-1.1) Eosinophils # (Auto) 0.1 x10^3/uL (0.0-0.7) Basophils # (Auto) 0.1 x10^3/uL (0.0-0.2) Sodium Level 141 mmol/L (136-145) Potassium Level 3.6 mmol/L (3.5-5.1) Chloride Level 102 mmol/L (98-107) Carbon Dioxide Level 30 mmol/L (21-32) Anion Gap 9 (6-14) Blood Urea Nitrogen 17 mg/dL (7-20) Creatinine 1.5 mg/dL (0.6-1.0) Estimated GFR (Cockcroft-Gault) 43.0 BUN/Creatinine Ratio 11 (6-20) Glucose Level 254 mg/dL (70-99) Calcium Level 9.0 mg/dL (8.5-10.1) Total Bilirubin 0.6 mg/dL (0.2-1.0) Aspartate Amino Transf (AST/SGOT) 16 U/L (15-37) Alanine Aminotransferase (ALT/SGPT) 16 U/L (14-59) Alkaline Phosphatase 280 U/L (46-116) Troponin I Quantitative 0.800 ng/mL (0.000-0.055) HX-Vqp-A-Type Natriuretic Peptide 27735 pg/mL (0-124) Total Protein 7.5 g/dL (6.4-8.2) Albumin 3.0 g/dL (3.4-5.0) Albumin/Globulin Ratio 0.7 (1.0-1.7) O2 Saturation 97 % (92-99) Arterial Blood pH 7.42 (7.35-7.45) Arterial Blood pCO2 at Patient Temp 42 mmHg (35-46) Arterial Blood pO2 at Patient Temp 108 mmHg (65-108) Arterial Blood HCO3 27 mmol/L (21-28) Arterial Blood Base Excess 2 mmol/L (-3-3) Oxyhemoglobin 96.1 % Methemoglobin 0.6 % (0.0-1.9) Carbon Monoxide, Quantitative 0.3 % (0.0-1.9) Urine Collection Type U cath Urine Color Yellow Urine Clarity Clear Urine pH 6.5 Urine Specific Pillow 1.010 Urine Protein >=300 mg/dL (NEG-TRACE) Urine Glucose (UA) Negative mg/dL (NEG) Urine Ketones (Stick) Negative mg/dL (NEG) Urine Blood Negative (NEG) Urine Nitrite Negative (NEG) Urine Bilirubin Negative (NEG) Urine Urobilinogen Dipstick 0.2 mg/dL (0.2 mg/dL) Urine Leukocyte Esterase Negative (NEG) Urine RBC Occ /HPF (0-2) Urine WBC Occ /HPF (0-4) Urine Squamous Epithelial Cells Occ /LPF Urine Transitional Epithelial Cells Occ /LPF Urine Renal Epithelial Cells Occ /LPF Urine Bacteria 0 /HPF (0-FEW) Urine Hyaline Casts Few /HPF Urine Mucus Slight /LPF Nasal Screen MRSA (PCR) Negative (Negative) Test 11/30/16 08:21 11/30/16 08:30 11/30/16 12:21 11/30/16 13:55 Glucose (Fingerstick) 193 mg/dL (70-99) 211 mg/dL (70-99) Troponin I Quantitative 0.962 ng/mL (0.000-0.055) 0.670 ng/mL (0.000-0.055) Images Images CXR REVIEWED SOME EDEMA Assessment/Plan Assessment/Plan A/C HYPOXEMIC RESP FAILURE AECOPD ACUTE HEART FAIULRE NON COMPLIABNCE OBESITY TOBACCO DEPENDENCE DM 2 HTN PLAN DIURESE 02 PRN BIPAP STEROIDS DOXY FOLLOW UP AT ONCE D/C THANKS DIMPLE ACOSTA MD Nov 30, 2016 17:10
[2016-11-30] MEDS: CARVEDILOL 12.5 MG TABLET. PO SCH (17:12)
[2016-11-30] MEDS: glipiZIDE 5 MG TABLET PO SCH (17:15)
[2016-11-30] MEDS: predniSONE 20 MG TABLET PO SCH (17:23)
[2016-11-30] MEDS: DOXYCYCLINE HYCLATE 100 MG TABLET PO SCH (20:43)
[2016-11-30] MEDS: ENOXAPARIN 40 MG/0.4 ML SYRINGE. SQ SCH (20:45)
[2016-11-30] MEDS: ATORVASTATIN CALCIUM 40 MG TABLET. PO SCH (20:45)
[2016-11-30] MEDS ORDERED: INSULIN DETEMIR 300 UNITS/3 ML INSULN.PEN. SQ SCH (21:00)
[2016-12-01] VITALS (7 sets, daily range): BP systolic 107–131; BP diastolic 51–66
[2016-12-01 05:20] LABS: BASO % 0 % (0-3); EOS % 0 % (0-3); HEMATOCRIT 25.7 % (36.0-47.0); HEMOGLOBIN 8.6 g/dL (12.0-15.5); LYMPH # 0.5 x10^3/uL (1.0-4.8); LYMPH % 8 % (24-48); MEAN CORPUSCULAR HEMOGLOBIN 28 pg (25-35); MEAN CORPUSCULAR HGB CONC 34 g/dL (31-37); MEAN CORPUSCULAR VOLUME 84 fL (79-100); MONO % 4 % (0-9); NEUT % 88 % (31-73); PLATELET COUNT 338 x10^3/uL (140-400); RED BLOOD COUNT 3.06 x10^6/uL (3.50-5.40); WHITE BLOOD COUNT 6.8 x10^3/uL (4.0-11.0)
[2016-12-01] MEDS: HYDROcodone/APAP 5/325MG 1 TAB TABLET PO PRN ×2 (05:33→12:37)
[2016-12-01 05:37] LABS: GFR 30.9; POTASSIUM 4.1 mmol/L (3.5-5.1)
[2016-12-01] MEDS: IPRATRPIUM/ALBUTEROL 0.5/2.5MG 3 ML NEBU. NEB SCH ×4 (08:01→20:30)
[2016-12-01] MEDS: traMADol 50 MG TABLET PO PRN ×3 (08:20→21:28)
[2016-12-01 08:23] LABS: PLT ESTIMATE ADEQUATE (ADEQUATE)
[2016-12-01] MEDS: INSULIN ASPART 300 UNITS/3 ML INSULN.PEN SQ SCH ×6 (08:44→18:18)
[2016-12-01] MEDS: DOXYCYCLINE HYCLATE 100 MG TABLET PO SCH ×2 (08:45→21:27)
[2016-12-01] MEDS: glipiZIDE 5 MG TABLET PO SCH ×2 (08:45→16:52)
[2016-12-01] MEDS: PANTOPRAZOLE 40 MG TABLET.DR. PO SCH (08:45)
[2016-12-01] MEDS: CARVEDILOL 12.5 MG TABLET. PO SCH ×2 (08:50→16:56)
[2016-12-01] MEDS: FUROSEMIDE 40 MG/4 ML VIAL. IVP SCH (09:36)
[2016-12-01] MEDS: amLODIPine BESYLATE 10 MG TABLET PO SCH (09:37)
[2016-12-01] MEDS: predniSONE 20 MG TABLET PO SCH (09:37)
[2016-12-01] MEDS: cloNIDine HCL 0.2 MG TABLET PO SCH ×2 (09:37→21:28)
[2016-12-01] MEDS: ENOXAPARIN 40 MG/0.4 ML SYRINGE. SQ SCH ×2 (09:38→21:29)
--- NOTE | 2016-12-01 09:49 | PDOC ---
PULMONARY PROGRESS NOTES Subjective PT FEELS BETTER LESS SOA NOT USED BIPAP Vitals Vital Signs Date Time Temp Pulse Resp B/P (MAP) Pulse Ox O2 Delivery O2 Flow Rate FiO2 12/01/16 09:37 74 147/60 12/01/16 09:20 30 95 Nasal Cannula 3.0 12/01/16 04:00 98.4 98.4 General: Alert, No acute distress Lungs: Clear Cardiovascular: S1, S2 Abdomen: Soft, Non-tender Extremities: No Edema Skin: Warm Labs Laboratory Tests Test 11/30/16 00:50 11/30/16 02:15 11/30/16 03:15 11/30/16 03:47 White Blood Count 14.8 x10^3/uL (4.0-11.0) Red Blood Count 3.34 x10^6/uL (3.50-5.40) Hemoglobin 9.0 g/dL (12.0-15.5) Hematocrit 28.4 % (36.0-47.0) Mean Corpuscular Volume 85 fL (79-100) Mean Corpuscular Hemoglobin 27 pg (25-35) Mean Corpuscular Hemoglobin Concent 32 g/dL (31-37) Red Cell Distribution Width 16.9 % (11.5-14.5) Platelet Count 353 x10^3/uL (140-400) Neutrophils (%) (Auto) 82 % (31-73) Lymphocytes (%) (Auto) 8 % (24-48) Monocytes (%) (Auto) 9 % (0-9) Eosinophils (%) (Auto) 1 % (0-3) Basophils (%) (Auto) 1 % (0-3) Neutrophils # (Auto) 12.1 x10^3uL (1.8-7.7) Lymphocytes # (Auto) 1.2 x10^3/uL (1.0-4.8) Monocytes # (Auto) 1.3 x10^3/uL (0.0-1.1) Eosinophils # (Auto) 0.1 x10^3/uL (0.0-0.7) Basophils # (Auto) 0.1 x10^3/uL (0.0-0.2) Sodium Level 141 mmol/L (136-145) Potassium Level 3.6 mmol/L (3.5-5.1) Chloride Level 102 mmol/L (98-107) Carbon Dioxide Level 30 mmol/L (21-32) Anion Gap 9 (6-14) Blood Urea Nitrogen 17 mg/dL (7-20) Creatinine 1.5 mg/dL (0.6-1.0) Estimated GFR (Cockcroft-Gault) 43.0 BUN/Creatinine Ratio 11 (6-20) Glucose Level 254 mg/dL (70-99) Calcium Level 9.0 mg/dL (8.5-10.1) Total Bilirubin 0.6 mg/dL (0.2-1.0) Aspartate Amino Transf (AST/SGOT) 16 U/L (15-37) Alanine Aminotransferase (ALT/SGPT) 16 U/L (14-59) Alkaline Phosphatase 280 U/L (46-116) Troponin I Quantitative 0.800 ng/mL (0.000-0.055) XM-Juy-V-Type Natriuretic Peptide 88837 pg/mL (0-124) Total Protein 7.5 g/dL (6.4-8.2) Albumin 3.0 g/dL (3.4-5.0) Albumin/Globulin Ratio 0.7 (1.0-1.7) O2 Saturation 97 % (92-99) Arterial Blood pH 7.42 (7.35-7.45) Arterial Blood pCO2 at Patient Temp 42 mmHg (35-46) Arterial Blood pO2 at Patient Temp 108 mmHg (65-108) Arterial Blood HCO3 27 mmol/L (21-28) Arterial Blood Base Excess 2 mmol/L (-3-3) Oxyhemoglobin 96.1 % Methemoglobin 0.6 % (0.0-1.9) Carbon Monoxide, Quantitative 0.3 % (0.0-1.9) Urine Collection Type U cath Urine Color Yellow Urine Clarity Clear Urine pH 6.5 Urine Specific [place] 1.010 Urine Protein >=300 mg/dL (NEG-TRACE) Urine Glucose (UA) Negative mg/dL (NEG) Urine Ketones (Stick) Negative mg/dL (NEG) Urine Blood Negative (NEG) Urine Nitrite Negative (NEG) Urine Bilirubin Negative (NEG) Urine Urobilinogen Dipstick 0.2 mg/dL (0.2 mg/dL) Urine Leukocyte Esterase Negative (NEG) Urine RBC Occ /HPF (0-2) Urine WBC Occ /HPF (0-4) Urine Squamous Epithelial Cells Occ /LPF Urine Transitional Epithelial Cells Occ /LPF Urine Renal Epithelial Cells Occ /LPF Urine Bacteria 0 /HPF (0-FEW) Urine Hyaline Casts Few /HPF Urine Mucus Slight /LPF Nasal Screen MRSA (PCR) Negative (Negative) Test 11/30/16 08:21 11/30/16 08:30 11/30/16 12:21 11/30/16 13:55 Glucose (Fingerstick) 193 mg/dL (70-99) 211 mg/dL (70-99) Troponin I Quantitative 0.962 ng/mL (0.000-0.055) 0.670 ng/mL (0.000-0.055) Test 11/30/16 17:14 11/30/16 20:43 12/01/16 04:40 12/01/16 04:45 Glucose (Fingerstick) 158 mg/dL (70-99) 119 mg/dL (70-99) White Blood Count 6.8 x10^3/uL (4.0-11.0) Red Blood Count 3.06 x10^6/uL (3.50-5.40) Hemoglobin 8.6 g/dL (12.0-15.5) Hematocrit 25.7 % (36.0-47.0) Mean Corpuscular Volume 84 fL (79-100) Mean Corpuscular Hemoglobin 28 pg (25-35) Mean Corpuscular Hemoglobin Concent 34 g/dL (31-37) Red Cell Distribution Width 17.0 % (11.5-14.5) Platelet Count 338 x10^3/uL (140-400) Neutrophils (%) (Auto) 88 % (31-73) Lymphocytes (%) (Auto) 8 % (24-48) Monocytes (%) (Auto) 4 % (0-9) Eosinophils (%) (Auto) 0 % (0-3) Basophils (%) (Auto) 0 % (0-3) Neutrophils # (Auto) 6.0 x10^3uL (1.8-7.7) Lymphocytes # (Auto) 0.5 x10^3/uL (1.0-4.8) Monocytes # (Auto) 0.2 x10^3/uL (0.0-1.1) Eosinophils # (Auto) 0.0 x10^3/uL (0.0-0.7) Basophils # (Auto) 0.0 x10^3/uL (0.0-0.2) Segmented Neutrophils % 85 % (35-66) Band Neutrophils % 3 % (0-9) Lymphocytes % 8 % (24-48) Monocytes % 4 % (0-10) Platelet Estimate Adequate (ADEQUATE) Giant Platelets Present Sodium Level 142 mmol/L (136-145) Potassium Level 4.1 mmol/L (3.5-5.1) Chloride Level 106 mmol/L (98-107) Carbon Dioxide Level 28 mmol/L (21-32) Anion Gap 8 (6-14) Blood Urea Nitrogen 25 mg/dL (7-20) Creatinine 2.0 mg/dL (0.6-1.0) Estimated GFR (Cockcroft-Gault) 30.9 Glucose Level 209 mg/dL (70-99) Calcium Level 8.0 mg/dL (8.5-10.1) Laboratory Tests Test 11/30/16 12:21 11/30/16 13:55 11/30/16 17:14 11/30/16 20:43 Glucose (Fingerstick) 211 mg/dL (70-99) 158 mg/dL (70-99) 119 mg/dL (70-99) Troponin I Quantitative 0.670 ng/mL (0.000-0.055) Test 12/01/16 04:40 12/01/16 04:45 White Blood Count 6.8 x10^3/uL (4.0-11.0) Red Blood Count 3.06 x10^6/uL (3.50-5.40) Hemoglobin 8.6 g/dL (12.0-15.5) Hematocrit 25.7 % (36.0-47.0) Mean Corpuscular Volume 84 fL (79-100) Mean Corpuscular Hemoglobin 28 pg (25-35) Mean Corpuscular Hemoglobin Concent 34 g/dL (31-37) Red Cell Distribution Width 17.0 % (11.5-14.5) Platelet Count 338 x10^3/uL (140-400) Neutrophils (%) (Auto) 88 % (31-73) Lymphocytes (%) (Auto) 8 % (24-48) Monocytes (%) (Auto) 4 % (0-9) Eosinophils (%) (Auto) 0 % (0-3) Basophils (%) (Auto) 0 % (0-3) Neutrophils # (Auto) 6.0 x10^3uL (1.8-7.7) Lymphocytes # (Auto) 0.5 x10^3/uL (1.0-4.8) Monocytes # (Auto) 0.2 x10^3/uL (0.0-1.1) Eosinophils # (Auto) 0.0 x10^3/uL (0.0-0.7) Basophils # (Auto) 0.0 x10^3/uL (0.0-0.2) Segmented Neutrophils % 85 % (35-66) Band Neutrophils % 3 % (0-9) Lymphocytes % 8 % (24-48) Monocytes % 4 % (0-10) Platelet Estimate Adequate (ADEQUATE) Giant Platelets Present Sodium Level 142 mmol/L (136-145) Potassium Level 4.1 mmol/L (3.5-5.1) Chloride Level 106 mmol/L (98-107) Carbon Dioxide Level 28 mmol/L (21-32) Anion Gap 8 (6-14) Blood Urea Nitrogen 25 mg/dL (7-20) Creatinine 2.0 mg/dL (0.6-1.0) Estimated GFR (Cockcroft-Gault) 30.9 Glucose Level 209 mg/dL (70-99) Calcium Level 8.0 mg/dL (8.5-10.1) Medications Active Scripts Medications Dose Route/Sig Max Daily Dose Days Date Category Wang [place] (Insulin Glargine,Hum.rec.anlog) 300 Unit/1 Ml Insuln.pen 36 Unit SQ HS 10/10/16 Reported [place] 5-325 Tablet (Acetaminophen/Hydrocodone Bitart) 1 Each Tablet 1-2 Tab PO Q4-6HRS PRN 01/30/16 Rx Amlodipine Besylate 10 Mg Tablet 10 Mg PO DAILY 09/27/15 Rx Novolog Flexpen (Insulin Aspart) 100 Unit/1 Ml Insuln.pen 10 Units SQ TIDAC 05/27/15 Rx Hydralazine Hcl 50 Mg Tablet 100 Mg PO Q8HRS 05/27/15 Rx Furosemide 40 Mg Tablet 40 Mg PO DAILY 1/12/16 Rx Atorvastatin Calcium 40 Mg Tablet 1 Tab PO DAILY 05/23/15 Reported Omeprazole 40 Mg Capsule.dr 1 Cap PO DAILY 05/23/15 Reported Ventolin Hfa Inhaler (Albuterol Sulfate) 18 Gm Hfa.aer.ad 2 Puff IH PRN Q4-6HRS 05/23/15 Reported Percocet 10-325 Mg Tablet (Oxycodone/Acetaminophen) 1 Each Tablet 1 Tab PO Q4-6HRS 06/10/14 Reported Glipizide 10 Mg Tablet 1 Tab PO BIDAC 06/10/14 Reported Clonidine Hcl 0.2 Mg Tablet 1 Tab PO BID 06/10/14 Reported Coreg (Carvedilol) 25 Mg Tablet 1 Tab PO [id number] 06/10/14 Reported Impression . A/C HYPOXEMIC RESP FAILURE AECOPD ACUTE HEART FAIULRE NON COMPLIABNCE OBESITY TOBACCO DEPENDENCE DM 2 HTN Plan . PT WANTS TO GO HOME OK BY ME FOLLOW UP AT PT NEEDS TO TAKE ON SOME RESPONSIBILITY FOR HER CARE I STRESS THE IMPORTANCE OF WRITING THINGS DOWN DIMPLE ACOSTA MD Dec 01, 2016 09:49
--- NOTE | 2016-12-01 10:53 | PDOC ---
CARDIO Progress Notes Date and Time Date of Service 12/01/16 Time of Evaluation 1015 Subjective Subjective: No Chest Pain, No shortness of breath, No Palpitations, Other (c/o back pain) Vitals Vitals Vital Signs Date Time Temp Pulse Resp B/P (MAP) Pulse Ox O2 Delivery O2 Flow Rate FiO2 12/01/16 09:37 74 147/60 12/01/16 09:20 30 95 Nasal Cannula 3.0 12/01/16 04:00 98.4 98.4 Weight Weight [ ] Input and Output Intake and Output Intake and Output 12/01/16 07:00 Intake Total 1640 ml Output Total 2275 ml Balance -635 ml Intake Oral 1640 ml Output Urine Total 2275 ml Laboratory Labs Laboratory Tests Test 11/30/16 12:21 11/30/16 13:55 11/30/16 17:14 11/30/16 20:43 Glucose (Fingerstick) 211 mg/dL (70-99) 158 mg/dL (70-99) 119 mg/dL (70-99) Troponin I Quantitative 0.670 ng/mL (0.000-0.055) Test 12/01/16 04:40 12/01/16 04:45 12/01/16 08:34 White Blood Count 6.8 x10^3/uL (4.0-11.0) Red Blood Count 3.06 x10^6/uL (3.50-5.40) Hemoglobin 8.6 g/dL (12.0-15.5) Hematocrit 25.7 % (36.0-47.0) Mean Corpuscular Volume 84 fL (79-100) Mean Corpuscular Hemoglobin 28 pg (25-35) Mean Corpuscular Hemoglobin Concent 34 g/dL (31-37) Red Cell Distribution Width 17.0 % (11.5-14.5) Platelet Count 338 x10^3/uL (140-400) Neutrophils (%) (Auto) 88 % (31-73) Lymphocytes (%) (Auto) 8 % (24-48) Monocytes (%) (Auto) 4 % (0-9) Eosinophils (%) (Auto) 0 % (0-3) Basophils (%) (Auto) 0 % (0-3) Neutrophils # (Auto) 6.0 x10^3uL (1.8-7.7) Lymphocytes # (Auto) 0.5 x10^3/uL (1.0-4.8) Monocytes # (Auto) 0.2 x10^3/uL (0.0-1.1) Eosinophils # (Auto) 0.0 x10^3/uL (0.0-0.7) Basophils # (Auto) 0.0 x10^3/uL (0.0-0.2) Segmented Neutrophils % 85 % (35-66) Band Neutrophils % 3 % (0-9) Lymphocytes % 8 % (24-48) Monocytes % 4 % (0-10) Platelet Estimate Adequate (ADEQUATE) Giant Platelets Present Sodium Level 142 mmol/L (136-145) Potassium Level 4.1 mmol/L (3.5-5.1) Chloride Level 106 mmol/L (98-107) Carbon Dioxide Level 28 mmol/L (21-32) Anion Gap 8 (6-14) Blood Urea Nitrogen 25 mg/dL (7-20) Creatinine 2.0 mg/dL (0.6-1.0) Estimated GFR (Cockcroft-Gault) 30.9 Glucose Level 209 mg/dL (70-99) Calcium Level 8.0 mg/dL (8.5-10.1) Glucose (Fingerstick) 228 mg/dL (70-99) Physical Exam HEENT: Neck Supple W Full Motion Chest: Symmetric LUNGS: Other (diminished bases ) Abdomen: Soft N/T, Other (truncal obesity ) Neurology: alert, oriented, follow commands Assessment Assessment 1. Acute on chronic diastolic HF; CXR with vascular congestion. Improved with IV Lasix. Preserved LV function on recent echo. Better compensated. Repeat CXR with interval improvement. Hold further lasix given increased Cr and now oliguric 2. NSTEMI; trop peak 0.962. Most probably type II, demand ischemia secondary to hypoxia, CHF, and malignant HTN. CP free. EKG without significant acute changes. Cath last year without obstructive disease as noted above. Lipids on goal 3. Acute on chronic respiratory failure secondary to acute HF. initially requiring BiPAP, now on NC. per pulm 4. Pulmonary HTN; PAP 44 5. Malignant Hypertension; now controlled. continue current therapy. No CYDNEY/ ARB given MARY 6. DM, II; uncontrolled. Per PCP 7. MARY with CKD; Cr now 2.0 and oliguria. D/w nephrology. Plan for fluids, will check limited echo to assess LV function 8. Tobaccoism; cessation encouraged 9. Substance abuse; recent UDS + for cocaine- cessation discussed and encouraged SAM WELSH APRN Dec 01, 2016 10:53
--- NOTE | 2016-12-01 12:36 | PDOC ---
PROGRESS NOTES Chief Complaint Chief Complaint dyspnea, acute on chronic hypoxic resp failure with diastolic CHF exacerbation Diastolic CHF with Recent ECho EF 55%, cath neg copd recent quit smoking dm2 on insulin htn morbid obesity elevated troponin with CHF ckd3 with MARY, vasomotor leukocytosis, reactive mild malnutrition plan: prieto field consulted on lasix iv 40mg bid now, Cr higher, asked nurse to double check with nurse about diuretics BIPAP prn, now NC 3 L IS OK cont home meds decrease levemir to 35u qhs, aspart 10u tid, ssi ptot dvt ppx duoneb ok to transfer out of icu, consider dc tmr if stable History of Present Illness History of Present Illness sob slightly better on NC 3L, wants go home but Cr higher Vitals Vitals Vital Signs Date Time Temp Pulse Resp B/P (MAP) Pulse Ox O2 Delivery O2 Flow Rate FiO2 12/01/16 11:55 98 Nasal Cannula 3.0 12/01/16 09:37 74 147/60 12/01/16 09:20 30 12/01/16 08:00 97.8 97.8 Physical Exam General: Alert, No acute distress Heart: Regular rate, Normal S1, Normal S2 Lungs: Clear Abdomen: Normal bowel sounds, Soft, Other (OBESE) Extremities: No clubbing, No cyanosis Skin: No rashes, No breakdown Labs LABS Laboratory Tests Test 11/30/16 13:55 11/30/16 17:14 11/30/16 20:43 12/01/16 04:40 Troponin I Quantitative 0.670 ng/mL (0.000-0.055) Glucose (Fingerstick) 158 mg/dL (70-99) 119 mg/dL (70-99) White Blood Count 6.8 x10^3/uL (4.0-11.0) Red Blood Count 3.06 x10^6/uL (3.50-5.40) Hemoglobin 8.6 g/dL (12.0-15.5) Hematocrit 25.7 % (36.0-47.0) Mean Corpuscular Volume 84 fL (79-100) Mean Corpuscular Hemoglobin 28 pg (25-35) Mean Corpuscular Hemoglobin Concent 34 g/dL (31-37) Red Cell Distribution Width 17.0 % (11.5-14.5) Platelet Count 338 x10^3/uL (140-400) Neutrophils (%) (Auto) 88 % (31-73) Lymphocytes (%) (Auto) 8 % (24-48) Monocytes (%) (Auto) 4 % (0-9) Eosinophils (%) (Auto) 0 % (0-3) Basophils (%) (Auto) 0 % (0-3) Neutrophils # (Auto) 6.0 x10^3uL (1.8-7.7) Lymphocytes # (Auto) 0.5 x10^3/uL (1.0-4.8) Monocytes # (Auto) 0.2 x10^3/uL (0.0-1.1) Eosinophils # (Auto) 0.0 x10^3/uL (0.0-0.7) Basophils # (Auto) 0.0 x10^3/uL (0.0-0.2) Segmented Neutrophils % 85 % (35-66) Band Neutrophils % 3 % (0-9) Lymphocytes % 8 % (24-48) Monocytes % 4 % (0-10) Platelet Estimate Adequate (ADEQUATE) Giant Platelets Present Test 12/01/16 04:45 12/01/16 08:34 12/01/16 12:22 Sodium Level 142 mmol/L (136-145) Potassium Level 4.1 mmol/L (3.5-5.1) Chloride Level 106 mmol/L (98-107) Carbon Dioxide Level 28 mmol/L (21-32) Anion Gap 8 (6-14) Blood Urea Nitrogen 25 mg/dL (7-20) Creatinine 2.0 mg/dL (0.6-1.0) Estimated GFR (Cockcroft-Gault) 30.9 Glucose Level 209 mg/dL (70-99) Calcium Level 8.0 mg/dL (8.5-10.1) Glucose (Fingerstick) 228 mg/dL (70-99) 243 mg/dL (70-99) Review of Systems Review of Systems no fever, chills, sob or chest pain Assessment and Plan Assessmemt and Plan Problems Medical Problems: (1) Acute respiratory failure with hypoxia Status: Acute (2) CHF (congestive heart failure) Status: Acute Problems: Comment Review of Relevant I have reviewed the following items jessee (where applicable) has been applied. Labs Laboratory Tests Test 11/30/16 00:50 11/30/16 02:15 11/30/16 03:15 11/30/16 03:47 White Blood Count 14.8 x10^3/uL (4.0-11.0) Red Blood Count 3.34 x10^6/uL (3.50-5.40) Hemoglobin 9.0 g/dL (12.0-15.5) Hematocrit 28.4 % (36.0-47.0) Mean Corpuscular Volume 85 fL (79-100) Mean Corpuscular Hemoglobin 27 pg (25-35) Mean Corpuscular Hemoglobin Concent 32 g/dL (31-37) Red Cell Distribution Width 16.9 % (11.5-14.5) Platelet Count 353 x10^3/uL (140-400) Neutrophils (%) (Auto) 82 % (31-73) Lymphocytes (%) (Auto) 8 % (24-48) Monocytes (%) (Auto) 9 % (0-9) Eosinophils (%) (Auto) 1 % (0-3) Basophils (%) (Auto) 1 % (0-3) Neutrophils # (Auto) 12.1 x10^3uL (1.8-7.7) Lymphocytes # (Auto) 1.2 x10^3/uL (1.0-4.8) Monocytes # (Auto) 1.3 x10^3/uL (0.0-1.1) Eosinophils # (Auto) 0.1 x10^3/uL (0.0-0.7) Basophils # (Auto) 0.1 x10^3/uL (0.0-0.2) Sodium Level 141 mmol/L (136-145) Potassium Level 3.6 mmol/L (3.5-5.1) Chloride Level 102 mmol/L (98-107) Carbon Dioxide Level 30 mmol/L (21-32) Anion Gap 9 (6-14) Blood Urea Nitrogen 17 mg/dL (7-20) Creatinine 1.5 mg/dL (0.6-1.0) Estimated GFR (Cockcroft-Gault) 43.0 BUN/Creatinine Ratio 11 (6-20) Glucose Level 254 mg/dL (70-99) Calcium Level 9.0 mg/dL (8.5-10.1) Total Bilirubin 0.6 mg/dL (0.2-1.0) Aspartate Amino Transf (AST/SGOT) 16 U/L (15-37) Alanine Aminotransferase (ALT/SGPT) 16 U/L (14-59) Alkaline Phosphatase 280 U/L (46-116) Troponin I Quantitative 0.800 ng/mL (0.000-0.055) RH-Muj-W-Type Natriuretic Peptide 41417 pg/mL (0-124) Total Protein 7.5 g/dL (6.4-8.2) Albumin 3.0 g/dL (3.4-5.0) Albumin/Globulin Ratio 0.7 (1.0-1.7) O2 Saturation 97 % (92-99) Arterial Blood pH 7.42 (7.35-7.45) Arterial Blood pCO2 at Patient Temp 42 mmHg (35-46) Arterial Blood pO2 at Patient Temp 108 mmHg (65-108) Arterial Blood HCO3 27 mmol/L (21-28) Arterial Blood Base Excess 2 mmol/L (-3-3) Oxyhemoglobin 96.1 % Methemoglobin 0.6 % (0.0-1.9) Carbon Monoxide, Quantitative 0.3 % (0.0-1.9) Urine Collection Type U cath Urine Color Yellow Urine Clarity Clear Urine pH 6.5 Urine Specific [place] 1.010 Urine Protein >=300 mg/dL (NEG-TRACE) Urine Glucose (UA) Negative mg/dL (NEG) Urine Ketones (Stick) Negative mg/dL (NEG) Urine Blood Negative (NEG) Urine Nitrite Negative (NEG) Urine Bilirubin Negative (NEG) Urine Urobilinogen Dipstick 0.2 mg/dL (0.2 mg/dL) Urine Leukocyte Esterase Negative (NEG) Urine RBC Occ /HPF (0-2) Urine WBC Occ /HPF (0-4) Urine Squamous Epithelial Cells Occ /LPF Urine Transitional Epithelial Cells Occ /LPF Urine Renal Epithelial Cells Occ /LPF Urine Bacteria 0 /HPF (0-FEW) Urine Hyaline Casts Few /HPF Urine Mucus Slight /LPF Nasal Screen MRSA (PCR) Negative (Negative) Test 11/30/16 08:21 11/30/16 08:30 11/30/16 12:21 11/30/16 13:55 Glucose (Fingerstick) 193 mg/dL (70-99) 211 mg/dL (70-99) Troponin I Quantitative 0.962 ng/mL (0.000-0.055) 0.670 ng/mL (0.000-0.055) Test 11/30/16 17:14 11/30/16 20:43 12/01/16 04:40 12/01/16 04:45 Glucose (Fingerstick) 158 mg/dL (70-99) 119 mg/dL (70-99) White Blood Count 6.8 x10^3/uL (4.0-11.0) Red Blood Count 3.06 x10^6/uL (3.50-5.40) Hemoglobin 8.6 g/dL (12.0-15.5) Hematocrit 25.7 % (36.0-47.0) Mean Corpuscular Volume 84 fL (79-100) Mean Corpuscular Hemoglobin 28 pg (25-35) Mean Corpuscular Hemoglobin Concent 34 g/dL (31-37) Red Cell Distribution Width 17.0 % (11.5-14.5) Platelet Count 338 x10^3/uL (140-400) Neutrophils (%) (Auto) 88 % (31-73) Lymphocytes (%) (Auto) 8 % (24-48) Monocytes (%) (Auto) 4 % (0-9) Eosinophils (%) (Auto) 0 % (0-3) Basophils (%) (Auto) 0 % (0-3) Neutrophils # (Auto) 6.0 x10^3uL (1.8-7.7) Lymphocytes # (Auto) 0.5 x10^3/uL (1.0-4.8) Monocytes # (Auto) 0.2 x10^3/uL (0.0-1.1) Eosinophils # (Auto) 0.0 x10^3/uL (0.0-0.7) Basophils # (Auto) 0.0 x10^3/uL (0.0-0.2) Segmented Neutrophils % 85 % (35-66) Band Neutrophils % 3 % (0-9) Lymphocytes % 8 % (24-48) Monocytes % 4 % (0-10) Platelet Estimate Adequate (ADEQUATE) Giant Platelets Present Sodium Level 142 mmol/L (136-145) Potassium Level 4.1 mmol/L (3.5-5.1) Chloride Level 106 mmol/L (98-107) Carbon Dioxide Level 28 mmol/L (21-32) Anion Gap 8 (6-14) Blood Urea Nitrogen 25 mg/dL (7-20) Creatinine 2.0 mg/dL (0.6-1.0) Estimated GFR (Cockcroft-Gault) 30.9 Glucose Level 209 mg/dL (70-99) Calcium Level 8.0 mg/dL (8.5-10.1) Test 12/01/16 08:34 12/01/16 12:22 Glucose (Fingerstick) 228 mg/dL (70-99) 243 mg/dL (70-99) Laboratory Tests Test 11/30/16 13:55 11/30/16 17:14 11/30/16 20:43 12/01/16 04:40 Troponin I Quantitative 0.670 ng/mL (0.000-0.055) Glucose (Fingerstick) 158 mg/dL (70-99) 119 mg/dL (70-99) White Blood Count 6.8 x10^3/uL (4.0-11.0) Red Blood Count 3.06 x10^6/uL (3.50-5.40) Hemoglobin 8.6 g/dL (12.0-15.5) Hematocrit 25.7 % (36.0-47.0) Mean Corpuscular Volume 84 fL (79-100) Mean Corpuscular Hemoglobin 28 pg (25-35) Mean Corpuscular Hemoglobin Concent 34 g/dL (31-37) Red Cell Distribution Width 17.0 % (11.5-14.5) Platelet Count 338 x10^3/uL (140-400) Neutrophils (%) (Auto) 88 % (31-73) Lymphocytes (%) (Auto) 8 % (24-48) Monocytes (%) (Auto) 4 % (0-9) Eosinophils (%) (Auto) 0 % (0-3) Basophils (%) (Auto) 0 % (0-3) Neutrophils # (Auto) 6.0 x10^3uL (1.8-7.7) Lymphocytes # (Auto) 0.5 x10^3/uL (1.0-4.8) Monocytes # (Auto) 0.2 x10^3/uL (0.0-1.1) Eosinophils # (Auto) 0.0 x10^3/uL (0.0-0.7) Basophils # (Auto) 0.0 x10^3/uL (0.0-0.2) Segmented Neutrophils % 85 % (35-66) Band Neutrophils % 3 % (0-9) Lymphocytes % 8 % (24-48) Monocytes % 4 % (0-10) Platelet Estimate Adequate (ADEQUATE) Giant Platelets Present Test 12/01/16 04:45 12/01/16 08:34 12/01/16 12:22 Sodium Level 142 mmol/L (136-145) Potassium Level 4.1 mmol/L (3.5-5.1) Chloride Level 106 mmol/L (98-107) Carbon Dioxide Level 28 mmol/L (21-32) Anion Gap 8 (6-14) Blood Urea Nitrogen 25 mg/dL (7-20) Creatinine 2.0 mg/dL (0.6-1.0) Estimated GFR (Cockcroft-Gault) 30.9 Glucose Level 209 mg/dL (70-99) Calcium Level 8.0 mg/dL (8.5-10.1) Glucose (Fingerstick) 228 mg/dL (70-99) 243 mg/dL (70-99) Medications Current Medications Furosemide (Lasix) 40 mg 1X ONCE IVP Last administered on 11/30/16 02:03; Start 11/30/16 at 01:45; Stop 11/30/16 at 01:46; Status DC Aspirin (Miguel Aspirin) 325 mg 1X ONCE PO Last administered on 11/30/16 02:04 ; Start 11/30/16 at 02:15; Stop 11/30/16 at 02:16; Status DC Ondansetron HCl (Zofran) 4 mg PRN Q8HRS PRN IV NAUSEA/VOMITING; Start 11/30/16 at 02:30; Stop 12/01/16 at 02:29; Status DC Fentanyl Citrate (Fentanyl 2ml Vial) 50 mcg PRN Q2HR PRN IV PAIN Last administered on 11/30/16 08:01; Start 11/30/16 at 02:30; Stop 12/01/16 at 02:29 ; Status DC Acetaminophen (Tylenol) 650 mg PRN Q4HRS PRN PO FEVER Last administered on 11/30 17:23; Start 11/30/16 at 02:30; Stop 12/01/16 at 02:29; Status DC Nitroglycerin (Nitrostat) 0.4 mg PRN Q5MIN PRN SL CHEST PAIN; Start 11/30/16 at 02:30; Stop 12/01/16 at 02:29; Status DC Albuterol/ Ipratropium (Duoneb) 3 ml RTQID NEB Last administered on 11/30/16 19:45; Start 11/30/16 at 08:00; Stop 12/01/16 at 07:59; Status DC Insulin Aspart (NovoLOG) 0-5 UNITS TIDWMEALS SQ Last administered on 12/01/16 12:25; Start 11/30/16 at 08:00 Dextrose (Dextrose 50%-Water Syringe) 12.5 gm PRN Q15MIN PRN IV SEE COMMENTS; Start 11/30/16 at 02:30 Furosemide (Lasix) 40 mg Q12HR IVP Last administered on 12/01/16 09:36; Start 11/30/16 at 09:00 Amlodipine Besylate (Norvasc) 10 mg DAILY PO Last administered on 12/01/16 09: 37; Start 11/30/16 at 11:00 Atorvastatin Calcium (Lipitor) 40 mg QHS PO Last administered on 11/30/16 20: 45; Start 11/30/16 at 21:00 Clonidine HCl (Catapres) 0.2 mg BID PO Last administered on 12/01/16 09:37; Start 11/30/16 at 11:00 Hydralazine HCl (Apresoline) 100 mg Q8HRS PO Last administered on 12/01/16 05: 35; Start 11/30/16 at 14:00 Acetaminophen/ Hydrocodone Bitart (Lortab 5/325) 1 tab PRN Q6HRS PRN PO SEVERE PAIN Last administered on 12/01/16 05:33; Start 11/30/16 at 10:45 Insulin Aspart (NovoLOG) 10 units TIDAC SQ Last administered on 12/01/16 12:24 ; Start 11/30/16 at 11:30 Albuterol Sulfate (Ventolin Neb Soln) 2.5 mg PRN Q4HRS PRN NEB SOA; Start 11/30 at 11:00 Carvedilol (Coreg) 25 mg BIDWMEALS PO Last administered on 12/01/16 08:50; Start 11/30/16 at 17:00 Glipizide (Glucotrol) 5 mg BIDBFRMEAL PO Last administered on 12/01/16 08:45; Start 11/30/16 at 16:30 Pantoprazole Sodium (Protonix) 40 mg DAILYAC PO Last administered on 12/01/16 08:45; Start 11/30/16 at 11:00 Insulin Detemir (Levemir) 30 units QHS SQ Last administered on 11/30/16 20:48 ; Start 11/30/16 at 21:00 Acetaminophen (Tylenol) 650 mg PRN Q6HRS PRN PO FEVER; Start 11/30/16 at 13:00 Ondansetron HCl (Zofran) 4 mg PRN Q6HRS PRN IV NAUSEA/VOMITING; Start 11/30/16 at 13:00 Morphine Sulfate 2 mg PRN Q2HR PRN IV PAIN Last administered on 11/30/16 18:10 ; Start 11/30/16 at 13:00 Tramadol HCl (Ultram) 50 mg PRN Q6HRS PRN PO PAIN Last administered on 08:20; Start 11/30/16 at 13:00 Hydralazine HCl (Apresoline) 10 mg PRN Q4HRS PRN IVP ELEVATED BP, SEE COMMENTS ; Start 11/30/16 at 13:00 Docusate Sodium (Colace) 100 mg PRN DAILY PRN PO CONSTIPATION Last administered on 12/01/16 05:33; Start 11/30/16 at 13:00 Albuterol/ Ipratropium (Duoneb) 3 ml RTQID NEB Last administered on 12/01/16 11:50; Start 11/30/16 at 16:00 Enoxaparin Sodium (Lovenox 40mg Syringe) 40 mg BID SQ Last administered on 12/01 09:38; Start 11/30/16 at 21:00 Prednisone (Prednisone) 30 mg DAILY PO Last administered on 12/01/16 09:37; Start 11/30/16 at 17:15 Doxycycline Hyclate (Vibra-Tab) 100 mg BID PO Last administered on 12/01/16t 08 :45; Start 11/30/16 at 21:00 Active Scripts Active [place] 5-325 Tablet (Acetaminophen/Hydrocodone Bitart) 1 Each Tablet 1-2 Tab PO Q4-6HRS PRN Amlodipine Besylate 10 Mg Tablet 10 Mg PO DAILY Novolog Flexpen (Insulin Aspart) 100 Unit/1 Ml Insuln.pen 10 Units SQ TIDAC Hydralazine Hcl 50 Mg Tablet 100 Mg PO Q8HRS Furosemide 40 Mg Tablet 40 Mg PO DAILY Reported Anthonyabdi Solostar (Insulin Glargine,Hum.rec.anlog) 300 Unit/1 Ml Insuln.pen 36 Unit SQ HS Atorvastatin Calcium 40 Mg Tablet 1 Tab PO DAILY Omeprazole 40 Mg Capsule.dr 1 Cap PO DAILY Ventolin Hfa Inhaler (Albuterol Sulfate) 18 Gm Hfa.aer.ad 2 Puff IH PRN Q4-6HRS Percocet 10-325 Mg Tablet (Oxycodone/Acetaminophen) 1 Each Tablet 1 Tab PO Q4- 6HRS Glipizide 10 Mg Tablet 1 Tab PO BIDAC Clonidine Hcl 0.2 Mg Tablet 1 Tab PO BID Coreg (Carvedilol) 25 Mg Tablet 1 Tab PO BID92 Vitals/I & O Vital Sign - Last 24 Hours 11/30/16 11/30/16 11/30/16 11/30/16 12:36 12:37 15:11 16:00 B/P (MAP) 190/83 190/83 195/78 Pulse Ox 92 O2 Delivery Nasal Cannula O2 Flow Rate 3.0 11/30/16 11/30/16 11/30/16 11/30/16 16:00 17:12 19:00 19:44 Temp 98.6 98.6 Pulse 72 Resp 28 16 B/P (MAP) 117/52 (73) 132/53 Pulse Ox 94 96 90 O2 Delivery Nasal Cannula Nasal Cannula Nasal Cannula O2 Flow Rate 3.0 3.0 3.0 11/30/16 11/30/16 11/30/16 11/30/16 19:51 20:00 20:45 20:45 Temp 98.8 98.8 Pulse 73 72 Resp 25 20 B/P (MAP) 131/59 (83) 135/59 Pulse Ox 96 96 O2 Delivery Nasal Cannula Nasal Cannula Nasal Cannula O2 Flow Rate 3.0 3.0 3.0 11/30/16 12/01/16 12/01/16 12/01/16 22:32 00:00 04:00 05:33 Temp 98.8 98.4 98.8 98.4 Pulse 76 69 72 Resp 22 18 24 B/P (MAP) 120/57 118/55 (76) 131/66 (87) Pulse Ox 94 96 95 O2 Delivery Nasal Cannula Nasal Cannula Nasal Cannula O2 Flow Rate 3.0 3.0 3.0 12/01/16 12/01/16 12/01/16 12/01/16 05:35 06:35 08:00 08:00 Temp 97.8 97.8 Pulse 77 98 Resp 20 26 B/P (MAP) 125/62 125/62 (83) Pulse Ox 96 98 O2 Delivery Nasal Cannula Nasal Cannula Nasal Cannula O2 Flow Rate 2.0 3.0 3.0 12/01/16 12/01/16 12/01/16 12/01/16 08:03 08:20 08:50 09:20 Pulse 76 Resp 30 30 B/P (MAP) 147/60 Pulse Ox 98 96 95 O2 Delivery Nasal Cannula Nasal Cannula Nasal Cannula O2 Flow Rate 3.0 3.0 3.0 12/01/16 12/01/16 12/01/16 09:37 09:37 11:55 Pulse 79 74 B/P (MAP) 147/60 147/60 Pulse Ox 98 O2 Delivery Nasal Cannula O2 Flow Rate 3.0 Intake and Output 11/30/16 11/30/16 12/01/16 15:00 23:00 07:00 Intake Total 540 ml 500 ml 600 ml Output Total 1050 ml 750 ml 475 ml Balance -510 ml -250 ml 125 ml ABIMAEL VALDIVIA MD Dec 01, 2016 12:36
[2016-12-01] MEDS ORDERED: MAGNESIUM SULFATE 2GM 50 ML IV PRN (13:00)
--- NOTE | 2016-12-01 13:11 | PDOC2 ---
CONSULT Date of Consult Date of Consult DATE: 12/01/16 TIME: 12:59 Reason for Consult Reason for Consult: Mary/ CKD III Referring Physician Referring Physician: Dr grande Identification/Chief Complaint Chief Complaint SOB Problems: Source Source: Chart review, Patient History of Present Illness Reason for Visit: 61 yo AAF admitted with sudden onset 6 in SOB CKD III CrCl 49cc/min on last scheck, Dm + HTNsive /NS - with Proteinuria fl. Overload (on CXR) with hypoxia - got lasix ; now oliguric despite that; CXR "wet" Proteinruia - < 2gms on last check MARY - ? due to lasix. no NSAIDs at home, now Oliguric, UA is bening Past Medical History Cardiovascular: CHF, HTN Pulmonary: COPD, Other (CHRONIC RESP FAILURE) GI: Other Heme/Onc: Anemia NOS Psych: Anxiety Musculoskeletal: Osteoarthritis Endocrine: Diabetes Past Surgical History Past Surgical History: Tonsillectomy Family History Family History: Cancer, Hypertension Social History Quit ALCOHOL: none Drugs: None, Other (UDS + for cocaine 10/18/16) Lives: Alone Current Problem List Problem List Problems Medical Problems: (1) Acute respiratory failure with hypoxia Status: Acute (2) CHF (congestive heart failure) Status: Acute Current Medications Current Medications Current Medications Furosemide (Lasix) 40 mg 1X ONCE IVP Last administered on 11/30/16 02:03; Start 11/30/16 at 01:45; Stop 11/30/16 at 01:46; Status DC Aspirin (Miguel Aspirin) 325 mg 1X ONCE PO Last administered on 11/30/16 02:04 ; Start 11/30/16 at 02:15; Stop 11/30/16 at 02:16; Status DC Ondansetron HCl (Zofran) 4 mg PRN Q8HRS PRN IV NAUSEA/VOMITING; Start 11/30/16 at 02:30; Stop 12/01/16 at 02:29; Status DC Fentanyl Citrate (Fentanyl 2ml Vial) 50 mcg PRN Q2HR PRN IV PAIN Last administered on 11/30/16 08:01; Start 11/30/16 at 02:30; Stop 12/01/16 at 02:29 ; Status DC Acetaminophen (Tylenol) 650 mg PRN Q4HRS PRN PO FEVER Last administered on 11/30 17:23; Start 11/30/16 at 02:30; Stop 12/01/16 at 02:29; Status DC Nitroglycerin (Nitrostat) 0.4 mg PRN Q5MIN PRN SL CHEST PAIN; Start 11/30/16 at 02:30; Stop 12/01/16 at 02:29; Status DC Albuterol/ Ipratropium (Duoneb) 3 ml RTQID NEB Last administered on 11/30/16 19:45; Start 11/30/16 at 08:00; Stop 12/01/16 at 07:59; Status DC Insulin Aspart (NovoLOG) 0-5 UNITS TIDWMEALS SQ Last administered on 12/01/16 12:25; Start 11/30/16 at 08:00 Dextrose (Dextrose 50%-Water Syringe) 12.5 gm PRN Q15MIN PRN IV SEE COMMENTS; Start 11/30/16 at 02:30 Furosemide (Lasix) 40 mg Q12HR IVP Last administered on 12/01/16 09:36; Start 11/30/16 at 09:00 Amlodipine Besylate (Norvasc) 10 mg DAILY PO Last administered on 12/01/16 09: 37; Start 11/30/16 at 11:00 Atorvastatin Calcium (Lipitor) 40 mg QHS PO Last administered on 11/30/16 20: 45; Start 11/30/16 at 21:00 Clonidine HCl (Catapres) 0.2 mg BID PO Last administered on 12/01/16 09:37; Start 11/30/16 at 11:00 Hydralazine HCl (Apresoline) 100 mg Q8HRS PO Last administered on 12/01/16 05: 35; Start 11/30/16 at 14:00 Acetaminophen/ Hydrocodone Bitart (Lortab 5/325) 1 tab PRN Q6HRS PRN PO SEVERE PAIN Last administered on 12/01/16 12:37; Start 11/30/16 at 10:45 Insulin Aspart (NovoLOG) 10 units TIDAC SQ Last administered on 12/01/16 12:24 ; Start 11/30/16 at 11:30 Albuterol Sulfate (Ventolin Neb Soln) 2.5 mg PRN Q4HRS PRN NEB SOA; Start 11/30 at 11:00 Carvedilol (Coreg) 25 mg BIDWMEALS PO Last administered on 12/01/16 08:50; Start 11/30/16 at 17:00 Glipizide (Glucotrol) 5 mg BIDBFRMEAL PO Last administered on 12/01/16 08:45; Start 11/30/16 at 16:30 Pantoprazole Sodium (Protonix) 40 mg DAILYAC PO Last administered on 12/01/16 08:45; Start 11/30/16 at 11:00 Insulin Detemir (Levemir) 30 units QHS SQ Last administered on 11/30/16 20:48 ; Start 11/30/16 at 21:00; Stop 12/01/16 at 12:35; Status DC Acetaminophen (Tylenol) 650 mg PRN Q6HRS PRN PO FEVER; Start 11/30/16 at 13:00 Ondansetron HCl (Zofran) 4 mg PRN Q6HRS PRN IV NAUSEA/VOMITING; Start 11/30/16 at 13:00 Morphine Sulfate 2 mg PRN Q2HR PRN IV PAIN Last administered on 11/30/16 18:10 ; Start 11/30/16 at 13:00 Tramadol HCl (Ultram) 50 mg PRN Q6HRS PRN PO PAIN Last administered on 08:20; Start 11/30/16 at 13:00 Hydralazine HCl (Apresoline) 10 mg PRN Q4HRS PRN IVP ELEVATED BP, SEE COMMENTS ; Start 11/30/16 at 13:00 Docusate Sodium (Colace) 100 mg PRN DAILY PRN PO CONSTIPATION Last administered on 12/01/16 05:33; Start 11/30/16 at 13:00 Albuterol/ Ipratropium (Duoneb) 3 ml RTQID NEB Last administered on 12/01/16 11:50; Start 11/30/16 at 16:00 Enoxaparin Sodium (Lovenox 40mg Syringe) 40 mg BID SQ Last administered on 12/01 09:38; Start 11/30/16 at 21:00 Prednisone (Prednisone) 30 mg DAILY PO Last administered on 12/01/16 09:37; Start 11/30/16 at 17:15 Doxycycline Hyclate (Vibra-Tab) 100 mg BID PO Last administered on 12/01/16t 08 :45; Start 11/30/16 at 21:00 Insulin Detemir (Levemir) 35 units QHS SQ ; Start 12/01/16 at 21:00 Active Scripts Active [place] 5-325 Tablet (Acetaminophen/Hydrocodone Bitart) 1 Each Tablet 1-2 Tab PO Q4-6HRS PRN Amlodipine Besylate 10 Mg Tablet 10 Mg PO DAILY Novolog Flexpen (Insulin Aspart) 100 Unit/1 Ml Insuln.pen 10 Units SQ TIDAC Hydralazine Hcl 50 Mg Tablet 100 Mg PO Q8HRS Furosemide 40 Mg Tablet 40 Mg PO DAILY Reported Toukarishma Solostar (Insulin Glargine,Hum.rec.anlog) 300 Unit/1 Ml Insuln.pen 36 Unit SQ HS Atorvastatin Calcium 40 Mg Tablet 1 Tab PO DAILY Omeprazole 40 Mg Capsule.dr 1 Cap PO DAILY Ventolin Hfa Inhaler (Albuterol Sulfate) 18 Gm Hfa.aer.ad 2 Puff IH PRN Q4-6HRS Percocet 10-325 Mg Tablet (Oxycodone/Acetaminophen) 1 Each Tablet 1 Tab PO Q4- 6HRS Glipizide 10 Mg Tablet 1 Tab PO BIDAC Clonidine Hcl 0.2 Mg Tablet 1 Tab PO BID Coreg (Carvedilol) 25 Mg Tablet 1 Tab PO [id number] Allergies Allergies: Coded Allergies: No Known Drug Allergies (Unverified , 06/10/14) ROS Review of System GEN: no Fevers no Chills EYES: no new Visual Complaints ENT: no EN Drainage no Hearing deficiets CVS: no Orthopnea no CP RESP: + SOB ? MORLEY ? 1 epsode of epistaxis (asso with NC O2) GI: no Nausea no Vomiting : no Dysuria no Urgency HEME: no easy bruising no Palp Ly Nodes NEURO no Focal Weakness no Sz PSYCH: no Suicidal Ideation no Depression SKIN: no Rashes ENDO: no Polyuria or Polydipsia no Hot/Cold Intolerance MU SK: n Arthraigia no Myalgia Physical Exam Physical Exam General Appearance: Awake Alert Oriented x 3 In no Distress Eyes: VIsion Unchanged Conjunctiva Normal EN: No EN Drainage Mucous Memb. moist Neck: no JVD min JVP Supple no Thyromegaly CVS: S1 S2 ? Murmur No Gallop No Rub tr if at all any Edema Resp: no Rales no Rhonchi no Acc. Muscle use; occ wheeze GI: BAS +ve NO Bruit Non Tender Non Distended : no CVA tenderness; no Suprapubic Tenderness SKIN: no Rashes Breast Exam deferred Mu.Sk: Adequate ROM no Muscle Atrophy Heme: Unable to palpate Obvious LAD no Splenomegaly NEURO: Good Strength and Tone Cranial Nerves II - XII grossly intact Psych: no Depressed no Active hallucination Vital Signs Vital Signs Date Time Temp Pulse Resp B/P (MAP) Pulse Ox O2 Delivery O2 Flow Rate FiO2 12/01/16 12:37 30 98 Nasal Cannula 3.0 12/01/16 09:37 74 147/60 12/01/16 08:00 97.8 97.8 Assessment & Plan MRAY - currently Oligo-anuric despite IV lasix given this am: Nuc Med renal scan r/o ATN and Obstructive Uropahty. Current FLuid and E-lyte status does not necessitate emergent need for Dialysis. Will re-evaluate for Dialysis in am. Doubt Pulm-renal synd per se. Cardio-renal is a possibility CKD III cr Cl 49 on last check Proteinuria - requantitiate with ratio fl Overload / hypoxia - "resp failure" - symptomatically much improved after - ve fluid balance. recheck CXR. 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 See orders for changes. Discussed Plan of Care and prognosis etc. at length with family. Labs Labs Laboratory Tests Test 11/30/16 00:50 11/30/16 02:15 11/30/16 03:15 11/30/16 03:47 White Blood Count 14.8 x10^3/uL (4.0-11.0) Red Blood Count 3.34 x10^6/uL (3.50-5.40) Hemoglobin 9.0 g/dL (12.0-15.5) Hematocrit 28.4 % (36.0-47.0) Mean Corpuscular Volume 85 fL (79-100) Mean Corpuscular Hemoglobin 27 pg (25-35) Mean Corpuscular Hemoglobin Concent 32 g/dL (31-37) Red Cell Distribution Width 16.9 % (11.5-14.5) Platelet Count 353 x10^3/uL (140-400) Neutrophils (%) (Auto) 82 % (31-73) Lymphocytes (%) (Auto) 8 % (24-48) Monocytes (%) (Auto) 9 % (0-9) Eosinophils (%) (Auto) 1 % (0-3) Basophils (%) (Auto) 1 % (0-3) Neutrophils # (Auto) 12.1 x10^3uL (1.8-7.7) Lymphocytes # (Auto) 1.2 x10^3/uL (1.0-4.8) Monocytes # (Auto) 1.3 x10^3/uL (0.0-1.1) Eosinophils # (Auto) 0.1 x10^3/uL (0.0-0.7) Basophils # (Auto) 0.1 x10^3/uL (0.0-0.2) Sodium Level 141 mmol/L (136-145) Potassium Level 3.6 mmol/L (3.5-5.1) Chloride Level 102 mmol/L (98-107) Carbon Dioxide Level 30 mmol/L (21-32) Anion Gap 9 (6-14) Blood Urea Nitrogen 17 mg/dL (7-20) Creatinine 1.5 mg/dL (0.6-1.0) Estimated GFR (Cockcroft-Gault) 43.0 BUN/Creatinine Ratio 11 (6-20) Glucose Level 254 mg/dL (70-99) Calcium Level 9.0 mg/dL (8.5-10.1) Total Bilirubin 0.6 mg/dL (0.2-1.0) Aspartate Amino Transf (AST/SGOT) 16 U/L (15-37) Alanine Aminotransferase (ALT/SGPT) 16 U/L (14-59) Alkaline Phosphatase 280 U/L (46-116) Troponin I Quantitative 0.800 ng/mL (0.000-0.055) KT-Rbr-Z-Type Natriuretic Peptide 99264 pg/mL (0-124) Total Protein 7.5 g/dL (6.4-8.2) Albumin 3.0 g/dL (3.4-5.0) Albumin/Globulin Ratio 0.7 (1.0-1.7) O2 Saturation 97 % (92-99) Arterial Blood pH 7.42 (7.35-7.45) Arterial Blood pCO2 at Patient Temp 42 mmHg (35-46) Arterial Blood pO2 at Patient Temp 108 mmHg (65-108) Arterial Blood HCO3 27 mmol/L (21-28) Arterial Blood Base Excess 2 mmol/L (-3-3) Oxyhemoglobin 96.1 % Methemoglobin 0.6 % (0.0-1.9) Carbon Monoxide, Quantitative 0.3 % (0.0-1.9) Urine Collection Type U cath Urine Color Yellow Urine Clarity Clear Urine pH 6.5 Urine Specific [place] 1.010 Urine Protein >=300 mg/dL (NEG-TRACE) Urine Glucose (UA) Negative mg/dL (NEG) Urine Ketones (Stick) Negative mg/dL (NEG) Urine Blood Negative (NEG) Urine Nitrite Negative (NEG) Urine Bilirubin Negative (NEG) Urine Urobilinogen Dipstick 0.2 mg/dL (0.2 mg/dL) Urine Leukocyte Esterase Negative (NEG) Urine RBC Occ /HPF (0-2) Urine WBC Occ /HPF (0-4) Urine Squamous Epithelial Cells Occ /LPF Urine Transitional Epithelial Cells Occ /LPF Urine Renal Epithelial Cells Occ /LPF Urine Bacteria 0 /HPF (0-FEW) Urine Hyaline Casts Few /HPF Urine Mucus Slight /LPF Nasal Screen MRSA (PCR) Negative (Negative) Test 11/30/16 08:21 11/30/16 08:30 11/30/16 12:21 11/30/16 13:55 Glucose (Fingerstick) 193 mg/dL (70-99) 211 mg/dL (70-99) Troponin I Quantitative 0.962 ng/mL (0.000-0.055) 0.670 ng/mL (0.000-0.055) Test 11/30/16 17:14 11/30/16 20:43 12/01/16 04:40 12/01/16 04:45 Glucose (Fingerstick) 158 mg/dL (70-99) 119 mg/dL (70-99) White Blood Count 6.8 x10^3/uL (4.0-11.0) Red Blood Count 3.06 x10^6/uL (3.50-5.40) Hemoglobin 8.6 g/dL (12.0-15.5) Hematocrit 25.7 % (36.0-47.0) Mean Corpuscular Volume 84 fL (79-100) Mean Corpuscular Hemoglobin 28 pg (25-35) Mean Corpuscular Hemoglobin Concent 34 g/dL (31-37) Red Cell Distribution Width 17.0 % (11.5-14.5) Platelet Count 338 x10^3/uL (140-400) Neutrophils (%) (Auto) 88 % (31-73) Lymphocytes (%) (Auto) 8 % (24-48) Monocytes (%) (Auto) 4 % (0-9) Eosinophils (%) (Auto) 0 % (0-3) Basophils (%) (Auto) 0 % (0-3) Neutrophils # (Auto) 6.0 x10^3uL (1.8-7.7) Lymphocytes # (Auto) 0.5 x10^3/uL (1.0-4.8) Monocytes # (Auto) 0.2 x10^3/uL (0.0-1.1) Eosinophils # (Auto) 0.0 x10^3/uL (0.0-0.7) Basophils # (Auto) 0.0 x10^3/uL (0.0-0.2) Segmented Neutrophils % 85 % (35-66) Band Neutrophils % 3 % (0-9) Lymphocytes % 8 % (24-48) Monocytes % 4 % (0-10) Platelet Estimate Adequate (ADEQUATE) Giant Platelets Present Sodium Level 142 mmol/L (136-145) Potassium Level 4.1 mmol/L (3.5-5.1) Chloride Level 106 mmol/L (98-107) Carbon Dioxide Level 28 mmol/L (21-32) Anion Gap 8 (6-14) Blood Urea Nitrogen 25 mg/dL (7-20) Creatinine 2.0 mg/dL (0.6-1.0) Estimated GFR (Cockcroft-Gault) 30.9 Glucose Level 209 mg/dL (70-99) Calcium Level 8.0 mg/dL (8.5-10.1) Test 12/01/16 08:34 12/01/16 12:22 Glucose (Fingerstick) 228 mg/dL (70-99) 243 mg/dL (70-99) Laboratory Tests Test 11/30/16 13:55 11/30/16 17:14 11/30/16 20:43 12/01/16 04:40 Troponin I Quantitative 0.670 ng/mL (0.000-0.055) Glucose (Fingerstick) 158 mg/dL (70-99) 119 mg/dL (70-99) White Blood Count 6.8 x10^3/uL (4.0-11.0) Red Blood Count 3.06 x10^6/uL (3.50-5.40) Hemoglobin 8.6 g/dL (12.0-15.5) Hematocrit 25.7 % (36.0-47.0) Mean Corpuscular Volume 84 fL (79-100) Mean Corpuscular Hemoglobin 28 pg (25-35) Mean Corpuscular Hemoglobin Concent 34 g/dL (31-37) Red Cell Distribution Width 17.0 % (11.5-14.5) Platelet Count 338 x10^3/uL (140-400) Neutrophils (%) (Auto) 88 % (31-73) Lymphocytes (%) (Auto) 8 % (24-48) Monocytes (%) (Auto) 4 % (0-9) Eosinophils (%) (Auto) 0 % (0-3) Basophils (%) (Auto) 0 % (0-3) Neutrophils # (Auto) 6.0 x10^3uL (1.8-7.7) Lymphocytes # (Auto) 0.5 x10^3/uL (1.0-4.8) Monocytes # (Auto) 0.2 x10^3/uL (0.0-1.1) Eosinophils # (Auto) 0.0 x10^3/uL (0.0-0.7) Basophils # (Auto) 0.0 x10^3/uL (0.0-0.2) Segmented Neutrophils % 85 % (35-66) Band Neutrophils % 3 % (0-9) Lymphocytes % 8 % (24-48) Monocytes % 4 % (0-10) Platelet Estimate Adequate (ADEQUATE) Giant Platelets Present Test 12/01/16 04:45 12/01/16 08:34 12/01/16 12:22 Sodium Level 142 mmol/L (136-145) Potassium Level 4.1 mmol/L (3.5-5.1) Chloride Level 106 mmol/L (98-107) Carbon Dioxide Level 28 mmol/L (21-32) Anion Gap 8 (6-14) Blood Urea Nitrogen 25 mg/dL (7-20) Creatinine 2.0 mg/dL (0.6-1.0) Estimated GFR (Cockcroft-Gault) 30.9 Glucose Level 209 mg/dL (70-99) Calcium Level 8.0 mg/dL (8.5-10.1) Glucose (Fingerstick) 228 mg/dL (70-99) 243 mg/dL (70-99) RAFAEL VELIZ MD Dec 01, 2016 13:11
--- NOTE | 2016-12-01 14:35 | RAD ---
Indication reevaluate congestive heart failure. PA and lateral views of the chest were obtained. Comparison is made to an examination yesterday. Cardiomegaly is unchanged. Changes of congestive heart failure persist but appear improved. A new finding in the chest is not seen. Aeration of the left lung base appears improved. IMPRESSION: Interval improvement. No new finding seen
[2016-12-01] MEDS: ATORVASTATIN CALCIUM 40 MG TABLET. PO SCH (21:28)
[2016-12-01] MEDS: oxyCODONE/APAP 5/325 1 TAB TABLET PO PRN (21:29)
[2016-12-01] MEDS: INSULIN DETEMIR 300 UNITS/3 ML INSULN.PEN. SQ SCH (21:33)
[2016-12-02] VITALS (7 sets, daily range): BP systolic 107–167; BP diastolic 52–77
[2016-12-02 05:47] LABS: BASO % 0 % (0-3); EOS % 0 % (0-3); HEMATOCRIT 25.8 % (36.0-47.0); HEMOGLOBIN 8.2 g/dL (12.0-15.5); LYMPH # 0.9 x10^3/uL (1.0-4.8); LYMPH % 12 % (24-48); MEAN CORPUSCULAR HEMOGLOBIN 27 pg (25-35); MEAN CORPUSCULAR HGB CONC 32 g/dL (31-37); MEAN CORPUSCULAR VOLUME 86 fL (79-100); MONO % 10 % (0-9); NEUT % 77 % (31-73); PLATELET COUNT 331 x10^3/uL (140-400); RED BLOOD COUNT 3.01 x10^6/uL (3.50-5.40); RED CELL DISTRIBUTION WIDTH 17.2 % (11.5-14.5)
[2016-12-02] MEDS: PANTOPRAZOLE 40 MG TABLET.DR. PO SCH (05:53)
[2016-12-02] MEDS: oxyCODONE/APAP 5/325 1 TAB TABLET PO PRN ×4 (05:54→21:49)
[2016-12-02 06:08] LABS: ALBUMIN 2.5 g/dL (3.4-5.0); CREATININE 2.6 mg/dL (0.6-1.0); GFR 22.8; POTASSIUM 3.9 mmol/L (3.5-5.1)
[2016-12-02] MEDS ORDERED: FUROSEMIDE 40 MG/4 ML VIAL. IVP ONE (07:30)
[2016-12-02] MEDS: IPRATRPIUM/ALBUTEROL 0.5/2.5MG 3 ML NEBU. NEB SCH ×4 (08:04→20:06)
[2016-12-02] MEDS: DOXYCYCLINE HYCLATE 100 MG TABLET PO SCH ×2 (08:45→21:48)
[2016-12-02] MEDS: predniSONE 20 MG TABLET PO SCH (08:45)
[2016-12-02] MEDS: glipiZIDE 5 MG TABLET PO SCH ×2 (08:45→17:20)
[2016-12-02] MEDS: ENOXAPARIN 40 MG/0.4 ML SYRINGE. SQ SCH ×2 (08:48→21:50)
[2016-12-02] MEDS: CARVEDILOL 12.5 MG TABLET. PO SCH ×2 (08:48→17:23)
[2016-12-02] MEDS: INSULIN ASPART 300 UNITS/3 ML INSULN.PEN SQ SCH ×6 (08:51→17:25)
--- NOTE | 2016-12-02 09:33 | PDOC ---
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[place] hypertension Morbid obesity Acute kidney injury with chronic kidney disease 3 Mild elevation of troponins Plan Diuresis as per cardiology, monitor renal functions closely Good urine output Creatinine is 2.6 with IV hydration BiPAP as needed Nicotine patch as needed Nuclear medicine renal scan pending Cardiology and nephrology following Continue Levemir with sliding scale insulin Physical therapy and occupational therapy As needed Advair nebulizations DVT prophylaxis prognosis guarded History of Present Illness History of Present Illness Not feeling better Drowsy No fever no chills Vitals Vitals Vital Signs Date Time Temp Pulse Resp B/P (MAP) Pulse Ox O2 Delivery O2 Flow Rate FiO2 12/02/16 08:48 67 117/55 12/02/16 08:00 97.9 18 98 Nasal Cannula 3.0 97.9 Physical Exam General: Alert, No acute distress, Other (drowsy, obese) Heart: Regular rate, Normal S1, Normal S2 Lungs: Clear Abdomen: Normal bowel sounds, Soft, Other (OBESE) Extremities: No clubbing, No cyanosis Skin: No rashes, No breakdown Labs LABS Laboratory Tests Test 12/01/16 12:22 12/01/16 13:55 12/01/16 17:53 12/01/16 21:25 Glucose (Fingerstick) 243 mg/dL (70-99) 248 mg/dL (70-99) 368 mg/dL (70-99) Erythrocyte Sedimentation Rate 102 (0-25) Test 12/02/16 04:50 12/02/16 07:18 White Blood Count 8.0 x10^3/uL (4.0-11.0) Red Blood Count 3.01 x10^6/uL (3.50-5.40) Hemoglobin 8.2 g/dL (12.0-15.5) Hematocrit 25.8 % (36.0-47.0) Mean Corpuscular Volume 86 fL (79-100) Mean Corpuscular Hemoglobin 27 pg (25-35) Mean Corpuscular Hemoglobin Concent 32 g/dL (31-37) Red Cell Distribution Width 17.2 % (11.5-14.5) Platelet Count 331 x10^3/uL (140-400) Neutrophils (%) (Auto) 77 % (31-73) Lymphocytes (%) (Auto) 12 % (24-48) Monocytes (%) (Auto) 10 % (0-9) Eosinophils (%) (Auto) 0 % (0-3) Basophils (%) (Auto) 0 % (0-3) Neutrophils # (Auto) 6.2 x10^3uL (1.8-7.7) Lymphocytes # (Auto) 0.9 x10^3/uL (1.0-4.8) Monocytes # (Auto) 0.8 x10^3/uL (0.0-1.1) Eosinophils # (Auto) 0.0 x10^3/uL (0.0-0.7) Basophils # (Auto) 0.0 x10^3/uL (0.0-0.2) Sodium Level 138 mmol/L (136-145) Potassium Level 3.9 mmol/L (3.5-5.1) Chloride Level 101 mmol/L (98-107) Carbon Dioxide Level 28 mmol/L (21-32) Anion Gap 9 (6-14) Blood Urea Nitrogen 41 mg/dL (7-20) Creatinine 2.6 mg/dL (0.6-1.0) Estimated GFR (Cockcroft-Gault) 22.8 Glucose Level 239 mg/dL (70-99) Calcium Level 8.0 mg/dL (8.5-10.1) Phosphorus Level 5.0 mg/dL (2.6-4.7) Magnesium Level 1.7 mg/dL (1.8-2.4) Albumin 2.5 g/dL (3.4-5.0) Glucose (Fingerstick) 186 mg/dL (70-99) Assessment and Plan Assessmemt and Plan Problems Medical Problems: (1) Acute respiratory failure with hypoxia Status: Acute (2) CHF (congestive heart failure) Status: Acute Problems: Comment Review of Relevant I have reviewed the following items jessee (where applicable) has been applied. Labs Laboratory Tests Test 11/30/16 12:21 11/30/16 13:55 11/30/16 17:14 11/30/16 20:43 Glucose (Fingerstick) 211 mg/dL (70-99) 158 mg/dL (70-99) 119 mg/dL (70-99) Troponin I Quantitative 0.670 ng/mL (0.000-0.055) Test 12/01/16 04:40 12/01/16 04:45 12/01/16 08:34 12/01/16 12:22 White Blood Count 6.8 x10^3/uL (4.0-11.0) Red Blood Count 3.06 x10^6/uL (3.50-5.40) Hemoglobin 8.6 g/dL (12.0-15.5) Hematocrit 25.7 % (36.0-47.0) Mean Corpuscular Volume 84 fL (79-100) Mean Corpuscular Hemoglobin 28 pg (25-35) Mean Corpuscular Hemoglobin Concent 34 g/dL (31-37) Red Cell Distribution Width 17.0 % (11.5-14.5) Platelet Count 338 x10^3/uL (140-400) Neutrophils (%) (Auto) 88 % (31-73) Lymphocytes (%) (Auto) 8 % (24-48) Monocytes (%) (Auto) 4 % (0-9) Eosinophils (%) (Auto) 0 % (0-3) Basophils (%) (Auto) 0 % (0-3) Neutrophils # (Auto) 6.0 x10^3uL (1.8-7.7) Lymphocytes # (Auto) 0.5 x10^3/uL (1.0-4.8) Monocytes # (Auto) 0.2 x10^3/uL (0.0-1.1) Eosinophils # (Auto) 0.0 x10^3/uL (0.0-0.7) Basophils # (Auto) 0.0 x10^3/uL (0.0-0.2) Segmented Neutrophils % 85 % (35-66) Band Neutrophils % 3 % (0-9) Lymphocytes % 8 % (24-48) Monocytes % 4 % (0-10) Platelet Estimate Adequate (ADEQUATE) Giant Platelets Present Sodium Level 142 mmol/L (136-145) Potassium Level 4.1 mmol/L (3.5-5.1) Chloride Level 106 mmol/L (98-107) Carbon Dioxide Level 28 mmol/L (21-32) Anion Gap 8 (6-14) Blood Urea Nitrogen 25 mg/dL (7-20) Creatinine 2.0 mg/dL (0.6-1.0) Estimated GFR (Cockcroft-Gault) 30.9 Glucose Level 209 mg/dL (70-99) Calcium Level 8.0 mg/dL (8.5-10.1) Glucose (Fingerstick) 228 mg/dL (70-99) 243 mg/dL (70-99) Test 12/01/16 13:55 12/01/16 17:53 12/01/16 21:25 12/02/16 04:50 Erythrocyte Sedimentation Rate 102 (0-25) Glucose (Fingerstick) 248 mg/dL (70-99) 368 mg/dL (70-99) White Blood Count 8.0 x10^3/uL (4.0-11.0) Red Blood Count 3.01 x10^6/uL (3.50-5.40) Hemoglobin 8.2 g/dL (12.0-15.5) Hematocrit 25.8 % (36.0-47.0) Mean Corpuscular Volume 86 fL (79-100) Mean Corpuscular Hemoglobin 27 pg (25-35) Mean Corpuscular Hemoglobin Concent 32 g/dL (31-37) Red Cell Distribution Width 17.2 % (11.5-14.5) Platelet Count 331 x10^3/uL (140-400) Neutrophils (%) (Auto) 77 % (31-73) Lymphocytes (%) (Auto) 12 % (24-48) Monocytes (%) (Auto) 10 % (0-9) Eosinophils (%) (Auto) 0 % (0-3) Basophils (%) (Auto) 0 % (0-3) Neutrophils # (Auto) 6.2 x10^3uL (1.8-7.7) Lymphocytes # (Auto) 0.9 x10^3/uL (1.0-4.8) Monocytes # (Auto) 0.8 x10^3/uL (0.0-1.1) Eosinophils # (Auto) 0.0 x10^3/uL (0.0-0.7) Basophils # (Auto) 0.0 x10^3/uL (0.0-0.2) Sodium Level 138 mmol/L (136-145) Potassium Level 3.9 mmol/L (3.5-5.1) Chloride Level 101 mmol/L (98-107) Carbon Dioxide Level 28 mmol/L (21-32) Anion Gap 9 (6-14) Blood Urea Nitrogen 41 mg/dL (7-20) Creatinine 2.6 mg/dL (0.6-1.0) Estimated GFR (Cockcroft-Gault) 22.8 Glucose Level 239 mg/dL (70-99) Calcium Level 8.0 mg/dL (8.5-10.1) Phosphorus Level 5.0 mg/dL (2.6-4.7) Magnesium Level 1.7 mg/dL (1.8-2.4) Albumin 2.5 g/dL (3.4-5.0) Test 12/02/16 07:18 Glucose (Fingerstick) 186 mg/dL (70-99) Laboratory Tests Test 12/01/16 12:22 12/01/16 13:55 12/01/16 17:53 12/01/16 21:25 Glucose (Fingerstick) 243 mg/dL (70-99) 248 mg/dL (70-99) 368 mg/dL (70-99) Erythrocyte Sedimentation Rate 102 (0-25) Test 12/02/16 04:50 12/02/16 07:18 White Blood Count 8.0 x10^3/uL (4.0-11.0) Red Blood Count 3.01 x10^6/uL (3.50-5.40) Hemoglobin 8.2 g/dL (12.0-15.5) Hematocrit 25.8 % (36.0-47.0) Mean Corpuscular Volume 86 fL (79-100) Mean Corpuscular Hemoglobin 27 pg (25-35) Mean Corpuscular Hemoglobin Concent 32 g/dL (31-37) Red Cell Distribution Width 17.2 % (11.5-14.5) Platelet Count 331 x10^3/uL (140-400) Neutrophils (%) (Auto) 77 % (31-73) Lymphocytes (%) (Auto) 12 % (24-48) Monocytes (%) (Auto) 10 % (0-9) Eosinophils (%) (Auto) 0 % (0-3) Basophils (%) (Auto) 0 % (0-3) Neutrophils # (Auto) 6.2 x10^3uL (1.8-7.7) Lymphocytes # (Auto) 0.9 x10^3/uL (1.0-4.8) Monocytes # (Auto) 0.8 x10^3/uL (0.0-1.1) Eosinophils # (Auto) 0.0 x10^3/uL (0.0-0.7) Basophils # (Auto) 0.0 x10^3/uL (0.0-0.2) Sodium Level 138 mmol/L (136-145) Potassium Level 3.9 mmol/L (3.5-5.1) Chloride Level 101 mmol/L (98-107) Carbon Dioxide Level 28 mmol/L (21-32) Anion Gap 9 (6-14) Blood Urea Nitrogen 41 mg/dL (7-20) Creatinine 2.6 mg/dL (0.6-1.0) Estimated GFR (Cockcroft-Gault) 22.8 Glucose Level 239 mg/dL (70-99) Calcium Level 8.0 mg/dL (8.5-10.1) Phosphorus Level 5.0 mg/dL (2.6-4.7) Magnesium Level 1.7 mg/dL (1.8-2.4) Albumin 2.5 g/dL (3.4-5.0) Glucose (Fingerstick) 186 mg/dL (70-99) Medications Current Medications Furosemide (Lasix) 40 mg 1X ONCE IVP Last administered on 11/30/16 02:03; Start 11/30/16 at 01:45; Stop 11/30/16 at 01:46; Status DC Aspirin (Miguel Aspirin) 325 mg 1X ONCE PO Last administered on 11/30/16 02:04 ; Start 11/30/16 at 02:15; Stop 11/30/16 at 02:16; Status DC Ondansetron HCl (Zofran) 4 mg PRN Q8HRS PRN IV NAUSEA/VOMITING; Start 11/30/16 at 02:30; Stop 12/01/16 at 02:29; Status DC Fentanyl Citrate (Fentanyl 2ml Vial) 50 mcg PRN Q2HR PRN IV PAIN Last administered on 11/30/16 08:01; Start 11/30/16 at 02:30; Stop 12/01/16 at 02:29 ; Status DC Acetaminophen (Tylenol) 650 mg PRN Q4HRS PRN PO FEVER Last administered on 11/30 17:23; Start 11/30/16 at 02:30; Stop 12/01/16 at 02:29; Status DC Nitroglycerin (Nitrostat) 0.4 mg PRN Q5MIN PRN SL CHEST PAIN; Start 11/30/16 at 02:30; Stop 12/01/16 at 02:29; Status DC Albuterol/ Ipratropium (Duoneb) 3 ml RTQID NEB Last administered on 11/30/16 19:45; Start 11/30/16 at 08:00; Stop 12/01/16 at 07:59; Status DC Insulin Aspart (NovoLOG) 0-5 UNITS TIDWMEALS SQ Last administered on 12/02/16 08:51; Start 11/30/16 at 08:00 Dextrose (Dextrose 50%-Water Syringe) 12.5 gm PRN Q15MIN PRN IV SEE COMMENTS; Start 11/30/16 at 02:30 Furosemide (Lasix) 40 mg Q12HR IVP Last administered on 12/01/16 09:36; Start 11/30/16 at 09:00; Stop 12/01/16 at 14:46; Status DC Amlodipine Besylate (Norvasc) 10 mg DAILY PO Last administered on 12/01/16 09: 37; Start 11/30/16 at 11:00 Atorvastatin Calcium (Lipitor) 40 mg QHS PO Last administered on 12/01/16 21: 28; Start 11/30/16 at 21:00 Clonidine HCl (Catapres) 0.2 mg BID PO Last administered on 12/01/16 21:28; Start 11/30/16 at 11:00 Hydralazine HCl (Apresoline) 100 mg Q8HRS PO Last administered on 12/02/16 05: 53; Start 11/30/16 at 14:00 Acetaminophen/ Hydrocodone Bitart (Lortab 5/325) 1 tab PRN Q6HRS PRN PO SEVERE PAIN Last administered on 12/01/16 12:37; Start 11/30/16 at 10:45; Stop at 19:33; Status DC Insulin Aspart (NovoLOG) 10 units TIDAC SQ Last administered on 12/02/16 08:51 ; Start 11/30/16 at 11:30 Albuterol Sulfate (Ventolin Neb Soln) 2.5 mg PRN Q4HRS PRN NEB SOA Last administered on 12/01/16 23:32; Start 11/30/16 at 11:00 Carvedilol (Coreg) 25 mg BIDWMEALS PO Last administered on 12/02/16 08:48; Start 11/30/16 at 17:00 Glipizide (Glucotrol) 5 mg BIDBFRMEAL PO Last administered on 12/02/16 08:45; Start 11/30/16 at 16:30 Pantoprazole Sodium (Protonix) 40 mg DAILYAC PO Last administered on 12/02/16 05:53; Start 11/30/16 at 11:00 Insulin Detemir (Levemir) 30 units QHS SQ Last administered on 11/30/16 20:48 ; Start 11/30/16 at 21:00; Stop 12/01/16 at 12:35; Status DC Acetaminophen (Tylenol) 650 mg PRN Q6HRS PRN PO FEVER; Start 11/30/16 at 13:00 Ondansetron HCl (Zofran) 4 mg PRN Q6HRS PRN IV NAUSEA/VOMITING; Start 11/30/16 at 13:00 Morphine Sulfate 2 mg PRN Q2HR PRN IV PAIN Last administered on 11/30/16 18:10 ; Start 11/30/16 at 13:00 Tramadol HCl (Ultram) 50 mg PRN Q6HRS PRN PO PAIN Last administered on 21:28; Start 11/30/16 at 13:00 Hydralazine HCl (Apresoline) 10 mg PRN Q4HRS PRN IVP ELEVATED BP, SEE COMMENTS ; Start 11/30/16 at 13:00 Docusate Sodium (Colace) 100 mg PRN DAILY PRN PO CONSTIPATION Last administered on 12/01/16 05:33; Start 11/30/16 at 13:00 Albuterol/ Ipratropium (Duoneb) 3 ml RTQID NEB Last administered on 12/01/16 20:30; Start 11/30/16 at 16:00 Enoxaparin Sodium (Lovenox 40mg Syringe) 40 mg BID SQ Last administered on 12/02 08:48; Start 11/30/16 at 21:00 Prednisone (Prednisone) 30 mg DAILY PO Last administered on 12/02/16 08:45; Start 11/30/16 at 17:15 Doxycycline Hyclate (Vibra-Tab) 100 mg BID PO Last administered on 12/02/16 08 :45; Start 11/30/16 at 21:00 Insulin Detemir (Levemir) 35 units QHS SQ Last administered on 12/01/16 21:33 ; Start 12/01/16 at 21:00 Magnesium Sulfate/ Dextrose 50 ml @ 25 mls/hr PRN DAILY PRN IV for Mag < 1.7 on am labs; Start 12/01/16 at 13:00 Oxycodone/ Acetaminophen (Percocet 5/325) 1 tab PRN Q4HRS PRN PO PAIN Last administered on 12/02/16 05:54; Start 12/01/16 at 19:45 Furosemide (Lasix) 40 mg 1X ONCE IVP Last administered on 12/02/16 08:14; Start 12/02/16 at 07:30; Stop 12/02/16 at 07:34; Status DC Active Scripts Active Warner 5-325 Tablet (Acetaminophen/Hydrocodone Bitart) 1 Each Tablet 1-2 Tab PO Q4-6HRS PRN Amlodipine Besylate 10 Mg Tablet 10 Mg PO DAILY Novolog Flexpen (Insulin Aspart) 100 Unit/1 Ml Insuln.pen 10 Units SQ TIDAC Hydralazine Hcl 50 Mg Tablet 100 Mg PO Q8HRS Furosemide 40 Mg Tablet 40 Mg PO DAILY Reported Wang Recinosostkari (Insulin Glargine,Hum.rec.anlog) 300 Unit/1 Ml Insuln.pen 36 Unit SQ HS Atorvastatin Calcium 40 Mg Tablet 1 Tab PO DAILY Omeprazole 40 Mg Capsule.dr 1 Cap PO DAILY Ventolin Hfa Inhaler (Albuterol Sulfate) 18 Gm Hfa.aer.ad 2 Puff IH PRN Q4-6HRS Percocet 10-325 Mg Tablet (Oxycodone/Acetaminophen) 1 Each Tablet 1 Tab PO Q4- 6HRS Glipizide 10 Mg Tablet 1 Tab PO BIDAC Clonidine Hcl 0.2 Mg Tablet 1 Tab PO BID Coreg (Carvedilol) 25 Mg Tablet 1 Tab PO BID92 Vitals/I & O Vital Sign - Last 24 Hours 12/01/16 12/01/16 12/01/16 12/01/16 09:37 09:37 11:55 12:00 Temp 98.0 98.0 Pulse 79 74 64 Resp 25 B/P (MAP) 147/60 147/60 124/56 (78) Pulse Ox 98 98 O2 Delivery Nasal Cannula Nasal Cannula O2 Flow Rate 3.0 3.0 12/01/16 12/01/16 12/01/16 12/01/16 12:37 13:37 15:24 15:33 Pulse 79 Resp 30 30 29 B/P (MAP) 147/60 Pulse Ox 98 98 98 O2 Delivery Nasal Cannula Nasal Cannula Nasal Cannula O2 Flow Rate 3.0 3.0 3.0 12/01/16 12/01/16 12/01/16 12/01/16 15:40 16:00 16:33 16:56 Temp 98.6 98.6 Pulse 66 65 Resp 23 B/P (MAP) 118/52 (74) 118/52 Pulse Ox 98 96 O2 Delivery Nasal Cannula Nasal Cannula O2 Flow Rate 3.0 3.0 3.0 12/01/16 12/01/16 12/01/16 12/01/16 18:48 19:06 19:45 20:31 Temp 98.6 98.1 98.6 98.1 Pulse 69 67 Resp 20 18 B/P (MAP) 120/52 (74) 107/51 (69) Pulse Ox 95 96 97 O2 Delivery Nasal Cannula Nasal Cannula Nasal Cannula Nasal Cannula O2 Flow Rate 3.0 3.0 3.0 3.0 12/01/16 12/01/16 12/01/16 12/01/16 21:28 21:28 21:28 21:29 Pulse 67 67 Resp 18 18 B/P (MAP) 107/51 107/51 Pulse Ox 97 97 O2 Delivery Nasal Cannula Nasal Cannula O2 Flow Rate 3.0 3.0 12/01/16 12/01/16 12/01/16 12/02/16 22:35 22:35 23:32 00:21 Temp 98.4 98.4 Pulse 69 Resp 16 18 B/P (MAP) 110/58 (75) Pulse Ox 96 96 O2 Delivery Room Air Nasal Cannula Nasal Cannula O2 Flow Rate 3.0 3.0 12/02/16 12/02/16 12/02/16 12/02/16 03:07 05:53 05:54 06:54 Temp 98.8 98.8 Pulse 60 65 Resp 18 18 18 B/P (MAP) 131/57 (81) 112/58 Pulse Ox 95 96 O2 Delivery Nasal Cannula Room Air Room Air O2 Flow Rate 3.0 12/02/16 12/02/16 08:00 08:48 Temp 97.9 97.9 Pulse 63 67 Resp 18 B/P (MAP) 117/55 (75) 117/55 Pulse Ox 98 O2 Delivery Nasal Cannula O2 Flow Rate 3.0 Intake and Output 12/01/16 12/01/16 12/02/16 15:00 23:00 07:00 Intake Total 1250 ml 200 ml Output Total 180 ml 65 ml 450 ml Balance -180 ml 1185 ml -250 ml JOANA MARION MD Dec 02, 2016 09:33
--- NOTE | 2016-12-02 10:14 | PDOC ---
SUBJECTIVE ROS MARY/ CKD III Doing and feeling better today CVS: no Orthopnea, no CP RESP: min SOB, ? MORLEY + Cough with clear plegm GI: no Nausea, no Vomiting : no Dysuria, no Urgency OBJECTIVE Vital Signs Vital Signs Date Time Temp Pulse Resp B/P (MAP) Pulse Ox O2 Delivery O2 Flow Rate FiO2 12/02/16 08:48 67 117/55 12/02/16 08:00 97.9 18 98 Nasal Cannula 3.0 97.9 I & 0 Intake and Output 12/02/16 07:00 Intake Total 1450 ml Output Total 695 ml Balance 755 ml Intake Oral 1450 ml Output Urine Total 695 ml PHYSICAL EXAM Physical Exam General Appearance: Awake Alert Oriented x 3 In no Distress Eyes: VIsion Unchanged Conjunctiva Normal EN: No EN Drainage Mucous Memb. moist Neck: no JVD min JVP Supple no Thyromegaly CVS: S1 S2 ? Murmur No Gallop No Rub tr if at all any Edema Resp: no Rales no Rhonchi no Acc. Muscle use; occ wheeze GI: BS +ve NO Bruit Non Tender Non Distended : no CVA tenderness; no Suprapubic Tenderness Assessment & Plan MARY - currently non-Oliguric after IV lasix given yest pm for Nuc Med renal scan. Scan results pending, hence etio is not very apparent. Current FLuid and E -lyte status does not necessitate emergent need for Dialysis. Will re-evaluate for Dialysis in am. Doubt Pulm-renal synd per se. Cardio-renal is a possibility - ECHO pending Oliguria - better currently CKD III cr Cl 49 on last check Proteinuria - requantitiate with ratio fl Overload / hypoxia - "resp failure" - symptomatically much improved after - ve fluid balance. recheck CXR is also somewhat better. check Procal to R/o pnuemonitis since ESR is ^^^ Anemia: Epogen started HTN: Current BP meds reviewed. See orders for changes. Lowish Mag - IV Mag x 1 ^phos - may need binders started if > 5.0 COMMENT/RELEVANT DATA Meds Current Medications Medications (Trade) Dose Ordered Sig/Rob Start Time Stop Time Status Last Admin Dose Admin Acetaminophen (Tylenol) 650 mg PRN Q6HRS PRN 11/30/16 13:00 Acetaminophen/ Hydrocodone Bitart (Lortab 5/325) 1 tab PRN Q6HRS PRN 11/30/16 10:45 12/01/16 19:33 DC 12/01/16 12:37 1 TAB Albuterol Sulfate (Ventolin Neb Soln) 2.5 mg PRN Q4HRS PRN 11/30/16 11:00 12/01/16 23:32 2.5 MG Albuterol/ Ipratropium (Duoneb) 3 ml RTQID 11/30/16 16:00 12/01/16 20:30 3 ML Amlodipine Besylate (Norvasc) 10 mg DAILY 11/30/16 11:00 12/01/16 09:37 10 MG Aspirin (Miguel Aspirin) 325 mg 1X ONCE 11/30/16 02:15 11/30/16 02:16 DC 11/30/16 02:04 325 MG Atorvastatin Calcium (Lipitor) 40 mg QHS 11/30/16 21:00 12/01/16 21:28 40 MG Carvedilol (Coreg) 25 mg BIDWMEALS 11/30/16 17:00 12/02/16 08:48 25 MG Clonidine HCl (Catapres) 0.2 mg BID 11/30/16 11:00 12/01/16 21:28 0.2 MG Dextrose (Dextrose 50%-Water Syringe) 12.5 gm PRN Q15MIN PRN 11/30/16 02:30 Docusate Sodium (Colace) 100 mg PRN DAILY PRN 11/30/16 13:00 12/01/16 05:33 100 MG Doxycycline Hyclate (Vibra-Tab) 100 mg BID 11/30/16 21:00 12/02/16 08:45 100 MG Enoxaparin Sodium (Lovenox 40mg Syringe) 40 mg BID 11/30/16 21:00 12/02/16 08:48 40 MG Fentanyl Citrate (Fentanyl 2ml Vial) 50 mcg PRN Q2HR PRN 11/30/16 02:30 12/01/16 02:29 DC 11/30/16 08:01 50 MCG Furosemide (Lasix) 40 mg 1X ONCE 12/02/16 07:30 12/02/16 07:34 DC 12/02/16 08:14 40 MG Glipizide (Glucotrol) 5 mg BIDBFRMEAL 11/30/16 16:30 12/02/16 08:45 5 MG Hydralazine HCl (Apresoline) 10 mg PRN Q4HRS PRN 11/30/16 13:00 Insulin Aspart (NovoLOG) 10 units TIDAC 11/30/16 11:30 12/02/16 08:51 10 UNITS Insulin Detemir (Levemir) 35 units QHS 12/01/16 21:00 12/01/16 21:33 35 UNITS Magnesium Sulfate/ Dextrose 50 ml @ 25 mls/hr PRN DAILY PRN 12/01/16 13:00 Morphine Sulfate 2 mg PRN Q2HR PRN 11/30/16 13:00 11/30/16 18:10 2 MG Nitroglycerin (Nitrostat) 0.4 mg PRN Q5MIN PRN 11/30/16 02:30 12/01/16 02:29 DC Ondansetron HCl (Zofran) 4 mg PRN Q6HRS PRN 11/30/16 13:00 Oxycodone/ Acetaminophen (Percocet 5/325) 1 tab PRN Q4HRS PRN 12/01/16 19:45 12/02/16 05:54 1 TAB Pantoprazole Sodium (Protonix) 40 mg DAILYAC 11/30/16 11:00 12/02/16 05:53 40 MG Prednisone (Prednisone) 30 mg DAILY 11/30/16 17:15 12/02/16 08:45 30 MG Tramadol HCl (Ultram) 50 mg PRN Q6HRS PRN 11/30/16 13:00 12/01/16 21:28 50 MG Lab Laboratory Tests Test 12/01/16 12:22 12/01/16 13:55 12/01/16 17:53 12/01/16 21:25 Glucose (Fingerstick) 243 mg/dL (70-99) 248 mg/dL (70-99) 368 mg/dL (70-99) Erythrocyte Sedimentation Rate 102 (0-25) Test 12/02/16 04:50 12/02/16 07:18 White Blood Count 8.0 x10^3/uL (4.0-11.0) Red Blood Count 3.01 x10^6/uL (3.50-5.40) Hemoglobin 8.2 g/dL (12.0-15.5) Hematocrit 25.8 % (36.0-47.0) Mean Corpuscular Volume 86 fL (79-100) Mean Corpuscular Hemoglobin 27 pg (25-35) Mean Corpuscular Hemoglobin Concent 32 g/dL (31-37) Red Cell Distribution Width 17.2 % (11.5-14.5) Platelet Count 331 x10^3/uL (140-400) Neutrophils (%) (Auto) 77 % (31-73) Lymphocytes (%) (Auto) 12 % (24-48) Monocytes (%) (Auto) 10 % (0-9) Eosinophils (%) (Auto) 0 % (0-3) Basophils (%) (Auto) 0 % (0-3) Neutrophils # (Auto) 6.2 x10^3uL (1.8-7.7) Lymphocytes # (Auto) 0.9 x10^3/uL (1.0-4.8) Monocytes # (Auto) 0.8 x10^3/uL (0.0-1.1) Eosinophils # (Auto) 0.0 x10^3/uL (0.0-0.7) Basophils # (Auto) 0.0 x10^3/uL (0.0-0.2) Sodium Level 138 mmol/L (136-145) Potassium Level 3.9 mmol/L (3.5-5.1) Chloride Level 101 mmol/L (98-107) Carbon Dioxide Level 28 mmol/L (21-32) Anion Gap 9 (6-14) Blood Urea Nitrogen 41 mg/dL (7-20) Creatinine 2.6 mg/dL (0.6-1.0) Estimated GFR (Cockcroft-Gault) 22.8 Glucose Level 239 mg/dL (70-99) Calcium Level 8.0 mg/dL (8.5-10.1) Phosphorus Level 5.0 mg/dL (2.6-4.7) Magnesium Level 1.7 mg/dL (1.8-2.4) Albumin 2.5 g/dL (3.4-5.0) Glucose (Fingerstick) 186 mg/dL (70-99) RAFAEL VELIZ MD Dec 02, 2016 10:14
--- NOTE | 2016-12-02 10:18 | CARD ---
APPROVED REPORT EXAM: LIMITED Two-dimensional echocardiogram. Other Information Quality : Average Rhythm : NSR INDICATION LV Function:Systolic Congestive Heart Failure 2D DIMENSIONS RVDd3.8 (2.9-3.5cm)Left Atrium(2D)4.6 (1.6-4.0cm) IVSd2.1 (0.7-1.1cm)Aortic Root(2D)2.7 (2.0-3.7cm) LVDd4.1 (3.9-5.9cm)PWd2.2 (0.7-1.1cm) LVDs3.0 (2.5-4.0cm)FS (%) 27.9 % SV40.8 mlLVEF(%)54.6 (>50%) LEFT VENTRICLE The left ventricle is normal size. There is mild to moderate concentric LVH. Left ventricle systolic function is mildly diminished. EF by visual estimation is 40-45% Segmental wall motion is difficult t o assess due to poor image quality. The basal to mid inferior wall and lateral wall appear to be mild ly hypokinetic. RIGHT VENTRICLE The right ventricle is normal size. The right ventricular systolic function is normal. ATRIA The left atrium size is normal. The right atrium size is normal. GREAT VESSELS The aortic root is normal in size. PERICARDIAL EFFUSION There is no evidence of significant pericardial effusion. Critical Notification Critical Value: No <Conclusion> Left ventricle systolic function is mildly diminished. EF by visual estimation is 40-45% Segmental wall motion is difficult to assess due to poor image quality. The basal to mid inferior wal l and lateral wall appear to be mildly hypokinetic.
[2016-12-02] MEDS ORDERED: MAGNESIUM SULFATE 1GM 100 ML IV ONE (10:30)
[2016-12-02] MEDS: amLODIPine BESYLATE 10 MG TABLET PO SCH (10:38)
[2016-12-02] MEDS: cloNIDine HCL 0.2 MG TABLET PO SCH ×2 (10:38→21:49)
--- NOTE | 2016-12-02 13:13 | PDOC ---
CARDIO Progress Notes Date and Time Date of Service 12/02/16 Time of Evaluation 1230 Subjective Subjective: No Chest Pain, No shortness of breath, No Palpitations, Other (c/o back pain) Vitals Vitals Vital Signs Date Time Temp Pulse Resp B/P (MAP) Pulse Ox O2 Delivery O2 Flow Rate FiO2 12/02/16 12:04 97 Nasal Cannula 3.0 12/02/16 11:00 98.4 60 18 167/77 (107) 98.4 Weight Weight [ ] Input and Output Intake and Output Intake and Output 12/02/16 06:59 Intake Total 1450 ml Output Total 720 ml Balance 730 ml Intake Oral 1450 ml Output Urine Total 720 ml Laboratory Labs Laboratory Tests Test 12/01/16 13:55 12/01/16 17:53 12/01/16 21:25 12/02/16 04:50 Erythrocyte Sedimentation Rate 102 (0-25) Glucose (Fingerstick) 248 mg/dL (70-99) 368 mg/dL (70-99) White Blood Count 8.0 x10^3/uL (4.0-11.0) Red Blood Count 3.01 x10^6/uL (3.50-5.40) Hemoglobin 8.2 g/dL (12.0-15.5) Hematocrit 25.8 % (36.0-47.0) Mean Corpuscular Volume 86 fL (79-100) Mean Corpuscular Hemoglobin 27 pg (25-35) Mean Corpuscular Hemoglobin Concent 32 g/dL (31-37) Red Cell Distribution Width 17.2 % (11.5-14.5) Platelet Count 331 x10^3/uL (140-400) Neutrophils (%) (Auto) 77 % (31-73) Lymphocytes (%) (Auto) 12 % (24-48) Monocytes (%) (Auto) 10 % (0-9) Eosinophils (%) (Auto) 0 % (0-3) Basophils (%) (Auto) 0 % (0-3) Neutrophils # (Auto) 6.2 x10^3uL (1.8-7.7) Lymphocytes # (Auto) 0.9 x10^3/uL (1.0-4.8) Monocytes # (Auto) 0.8 x10^3/uL (0.0-1.1) Eosinophils # (Auto) 0.0 x10^3/uL (0.0-0.7) Basophils # (Auto) 0.0 x10^3/uL (0.0-0.2) Sodium Level 138 mmol/L (136-145) Potassium Level 3.9 mmol/L (3.5-5.1) Chloride Level 101 mmol/L (98-107) Carbon Dioxide Level 28 mmol/L (21-32) Anion Gap 9 (6-14) Blood Urea Nitrogen 41 mg/dL (7-20) Creatinine 2.6 mg/dL (0.6-1.0) Estimated GFR (Cockcroft-Gault) 22.8 Glucose Level 239 mg/dL (70-99) Calcium Level 8.0 mg/dL (8.5-10.1) Phosphorus Level 5.0 mg/dL (2.6-4.7) Magnesium Level 1.7 mg/dL (1.8-2.4) Albumin 2.5 g/dL (3.4-5.0) Test 12/02/16 07:18 12/02/16 10:23 12/02/16 11:39 Glucose (Fingerstick) 186 mg/dL (70-99) 110 mg/dL (70-99) Procalcitonin < 0.10 ng/mL (0.00-0.10) Physical Exam HEENT: Neck Supple W Full Motion Chest: Symmetric LUNGS: Other (diminished bases ) Abdomen: Soft N/T, Other (truncal obesity ) Neurology: alert, oriented, follow commands Assessment Assessment 1. Acute on chronic diastolic HF; CXR with vascular congestion. Improved with IV Lasix. Preserved LV function on recent echo. Repeat CXR with interval improvement. Now compensated. Hold Lasix given increasing Cr. No CYDNEY/ARB. Repeat echo with LVEF45% although technically difficult study. 2. NSTEMI; trop peak 0.962. Most probably type II, demand ischemia secondary to hypoxia, CHF, and malignant HTN. CP free. EKG without significant acute changes. Cath last year without obstructive disease as noted above. Lipids on goal. Continue medical management 3. Acute on chronic respiratory failure secondary to acute HF. improved. per pulm 4. Pulmonary HTN; PAP 44 5. Malignant Hypertension; now better controlled. continue current therapy. 6. DM, II; uncontrolled. Per PCP 7. MARY with CKD; Cr now 2.6. per nephrology SAM WELSH APRN Dec 02, 2016 13:13
--- NOTE | 2016-12-02 14:47 | RAD ---
EXAM: Renal scintigraphy. HISTORY: Hydronephrosis, oliguria, acute renal insufficiency, diabetes, hypertension. COMPARISON: 10/09/2016. FINDINGS: 11.0 mCi technetium-99m MAG3 were administered intravenously. Scintigraphic images of the kidneys were obtained in angiographic, uptake and excretory phases. 40 mg Lasix were administered intravenously at 15 minutes and additional excretory images were obtained. Split function and excretory curves were calculated. Angiographic images demonstrate delayed perfusion of the right kidney in comparison with the left. Uptake images demonstrate decreased cortical clearance on the right in comparison with the left. The bladder is not included on this study. There is excretory delay on the right greater than left with only a small amount of activity in the left collecting system at the completion of the study. Split function: 37.3% right; 62.7% left. Clearance half times were not calculated as hepatic clearance was not seen by the termination of the study. There is no clear evidence of obstruction and the rate of clearance appears normal along the terminal portion of the activity curves. IMPRESSION: 1. Delayed perfusion and decreased function of the right kidney with split function: 37.3% right; 62.7% left. Correlate for renal artery stenosis on the right. 2. Delayed excretion from both kidneys without evidence of hydronephrosis. Correlate for a prerenal state or acute tubular necrosis. No evidence of fixed obstruction.
--- NOTE | 2016-12-02 16:58 | PDOC ---
PULMONARY PROGRESS NOTES Subjective PT FEELS BETTER LESS SOA NOT USED BIPAP Vitals Vital Signs Date Time Temp Pulse Resp B/P (MAP) Pulse Ox O2 Delivery O2 Flow Rate FiO2 12/02/16 16:19 96 Room Air 12/02/16 15:10 64 122/52 12/02/16 15:00 98.6 20 98.6 12/02/16 12:04 3.0 General: Alert, No acute distress Lungs: Clear Cardiovascular: S1, S2 Abdomen: Soft, Non-tender Extremities: No Edema Skin: Warm Labs Laboratory Tests Test 11/30/16 17:14 11/30/16 20:43 12/01/16 04:40 12/01/16 04:45 Glucose (Fingerstick) 158 mg/dL (70-99) 119 mg/dL (70-99) White Blood Count 6.8 x10^3/uL (4.0-11.0) Red Blood Count 3.06 x10^6/uL (3.50-5.40) Hemoglobin 8.6 g/dL (12.0-15.5) Hematocrit 25.7 % (36.0-47.0) Mean Corpuscular Volume 84 fL (79-100) Mean Corpuscular Hemoglobin 28 pg (25-35) Mean Corpuscular Hemoglobin Concent 34 g/dL (31-37) Red Cell Distribution Width 17.0 % (11.5-14.5) Platelet Count 338 x10^3/uL (140-400) Neutrophils (%) (Auto) 88 % (31-73) Lymphocytes (%) (Auto) 8 % (24-48) Monocytes (%) (Auto) 4 % (0-9) Eosinophils (%) (Auto) 0 % (0-3) Basophils (%) (Auto) 0 % (0-3) Neutrophils # (Auto) 6.0 x10^3uL (1.8-7.7) Lymphocytes # (Auto) 0.5 x10^3/uL (1.0-4.8) Monocytes # (Auto) 0.2 x10^3/uL (0.0-1.1) Eosinophils # (Auto) 0.0 x10^3/uL (0.0-0.7) Basophils # (Auto) 0.0 x10^3/uL (0.0-0.2) Segmented Neutrophils % 85 % (35-66) Band Neutrophils % 3 % (0-9) Lymphocytes % 8 % (24-48) Monocytes % 4 % (0-10) Platelet Estimate Adequate (ADEQUATE) Giant Platelets Present Sodium Level 142 mmol/L (136-145) Potassium Level 4.1 mmol/L (3.5-5.1) Chloride Level 106 mmol/L (98-107) Carbon Dioxide Level 28 mmol/L (21-32) Anion Gap 8 (6-14) Blood Urea Nitrogen 25 mg/dL (7-20) Creatinine 2.0 mg/dL (0.6-1.0) Estimated GFR (Cockcroft-Gault) 30.9 Glucose Level 209 mg/dL (70-99) Calcium Level 8.0 mg/dL (8.5-10.1) Test 12/01/16 08:34 12/01/16 12:22 12/01/16 13:55 12/01/16 17:53 Glucose (Fingerstick) 228 mg/dL (70-99) 243 mg/dL (70-99) 248 mg/dL (70-99) Erythrocyte Sedimentation Rate 102 (0-25) Test 12/01/16 21:25 12/02/16 04:50 12/02/16 07:18 12/02/16 10:23 Glucose (Fingerstick) 368 mg/dL (70-99) 186 mg/dL (70-99) White Blood Count 8.0 x10^3/uL (4.0-11.0) Red Blood Count 3.01 x10^6/uL (3.50-5.40) Hemoglobin 8.2 g/dL (12.0-15.5) Hematocrit 25.8 % (36.0-47.0) Mean Corpuscular Volume 86 fL (79-100) Mean Corpuscular Hemoglobin 27 pg (25-35) Mean Corpuscular Hemoglobin Concent 32 g/dL (31-37) Red Cell Distribution Width 17.2 % (11.5-14.5) Platelet Count 331 x10^3/uL (140-400) Neutrophils (%) (Auto) 77 % (31-73) Lymphocytes (%) (Auto) 12 % (24-48) Monocytes (%) (Auto) 10 % (0-9) Eosinophils (%) (Auto) 0 % (0-3) Basophils (%) (Auto) 0 % (0-3) Neutrophils # (Auto) 6.2 x10^3uL (1.8-7.7) Lymphocytes # (Auto) 0.9 x10^3/uL (1.0-4.8) Monocytes # (Auto) 0.8 x10^3/uL (0.0-1.1) Eosinophils # (Auto) 0.0 x10^3/uL (0.0-0.7) Basophils # (Auto) 0.0 x10^3/uL (0.0-0.2) Sodium Level 138 mmol/L (136-145) Potassium Level 3.9 mmol/L (3.5-5.1) Chloride Level 101 mmol/L (98-107) Carbon Dioxide Level 28 mmol/L (21-32) Anion Gap 9 (6-14) Blood Urea Nitrogen 41 mg/dL (7-20) Creatinine 2.6 mg/dL (0.6-1.0) Estimated GFR (Cockcroft-Gault) 22.8 Glucose Level 239 mg/dL (70-99) Calcium Level 8.0 mg/dL (8.5-10.1) Phosphorus Level 5.0 mg/dL (2.6-4.7) Magnesium Level 1.7 mg/dL (1.8-2.4) Albumin 2.5 g/dL (3.4-5.0) Procalcitonin < 0.10 ng/mL (0.00-0.10) Test 12/02/16 11:39 Glucose (Fingerstick) 110 mg/dL (70-99) Laboratory Tests Test 12/01/16 17:53 12/01/16 21:25 12/02/16 04:50 12/02/16 07:18 Glucose (Fingerstick) 248 mg/dL (70-99) 368 mg/dL (70-99) 186 mg/dL (70-99) White Blood Count 8.0 x10^3/uL (4.0-11.0) Red Blood Count 3.01 x10^6/uL (3.50-5.40) Hemoglobin 8.2 g/dL (12.0-15.5) Hematocrit 25.8 % (36.0-47.0) Mean Corpuscular Volume 86 fL (79-100) Mean Corpuscular Hemoglobin 27 pg (25-35) Mean Corpuscular Hemoglobin Concent 32 g/dL (31-37) Red Cell Distribution Width 17.2 % (11.5-14.5) Platelet Count 331 x10^3/uL (140-400) Neutrophils (%) (Auto) 77 % (31-73) Lymphocytes (%) (Auto) 12 % (24-48) Monocytes (%) (Auto) 10 % (0-9) Eosinophils (%) (Auto) 0 % (0-3) Basophils (%) (Auto) 0 % (0-3) Neutrophils # (Auto) 6.2 x10^3uL (1.8-7.7) Lymphocytes # (Auto) 0.9 x10^3/uL (1.0-4.8) Monocytes # (Auto) 0.8 x10^3/uL (0.0-1.1) Eosinophils # (Auto) 0.0 x10^3/uL (0.0-0.7) Basophils # (Auto) 0.0 x10^3/uL (0.0-0.2) Sodium Level 138 mmol/L (136-145) Potassium Level 3.9 mmol/L (3.5-5.1) Chloride Level 101 mmol/L (98-107) Carbon Dioxide Level 28 mmol/L (21-32) Anion Gap 9 (6-14) Blood Urea Nitrogen 41 mg/dL (7-20) Creatinine 2.6 mg/dL (0.6-1.0) Estimated GFR (Cockcroft-Gault) 22.8 Glucose Level 239 mg/dL (70-99) Calcium Level 8.0 mg/dL (8.5-10.1) Phosphorus Level 5.0 mg/dL (2.6-4.7) Magnesium Level 1.7 mg/dL (1.8-2.4) Albumin 2.5 g/dL (3.4-5.0) Test 12/02/16 10:23 12/02/16 11:39 Procalcitonin < 0.10 ng/mL (0.00-0.10) Glucose (Fingerstick) 110 mg/dL (70-99) Medications Active Scripts Medications Dose Route/Sig Max Daily Dose Days Date Category Wang Hummel (Insulin Glargine,Hum.rec.anlog) 300 Unit/1 Ml Insuln.pen 36 Unit SQ HS 10/10/16 Reported [place]lina 5-325 Tablet (Acetaminophen/Hydrocodone Bitart) 1 Each Tablet 1-2 Tab PO Q4-6HRS PRN 01/30/16 Rx Amlodipine Besylate 10 Mg Tablet 10 Mg PO DAILY 09/27/15 Rx Novolog Flexpen (Insulin Aspart) 100 Unit/1 Ml Insuln.pen 10 Units SQ TIDAC 05/27/15 Rx Hydralazine Hcl 50 Mg Tablet 100 Mg PO Q8HRS 05/27/15 Rx Furosemide 40 Mg Tablet 40 Mg PO DAILY 05/27/15 Rx Atorvastatin Calcium 40 Mg Tablet 1 Tab PO DAILY 05/23/15 Reported Omeprazole 40 Mg Capsule.dr 1 Cap PO DAILY 05/23/15 Reported Ventolin Hfa Inhaler (Albuterol Sulfate) 18 Gm Hfa.aer.ad 2 Puff IH PRN Q4-6HRS 05/23/15 Reported Percocet 10-325 Mg Tablet (Oxycodone/Acetaminophen) 1 Each Tablet 1 Tab PO Q4-6HRS 06/10/14 Reported Glipizide 10 Mg Tablet 1 Tab PO BIDAC 06/10/14 Reported Clonidine Hcl 0.2 Mg Tablet 1 Tab PO BID 06/10/14 Reported Coreg (Carvedilol) 25 Mg Tablet 1 Tab PO [id number] 06/10/14 Reported Impression . A/C HYPOXEMIC RESP FAILURE AECOPD ACUTE HEART FAIULRE NON COMPLIABNCE OBESITY TOBACCO DEPENDENCE DM 2 HTN Plan . HOME OK ITH ME OK BY ME FOLLOW UP AT [facility] TERRY MD Dec 02, 2016 16:58
[2016-12-02 17:15] LABS: C3 COMPLEMENT 159 mg/dL (82-167); C4 COMPLEMENT 29 mg/dL (14-44)
[2016-12-02] MEDS: POLYETHYLENE GLYCOL 3350 17 GM PACKET. PO PRN (17:42)
[2016-12-02] MEDS: DOCUSATE SODIUM 100 MG CAPSULE. PO SCH (17:42)
[2016-12-02 18:12] LABS: UR PROTEIN RD 56.7 mg/dL (Not Estab.)
[2016-12-02] MEDS ORDERED: DARBEPOETIN ALFA 60 MCG/0.3 ML DISP.SYRIN. SQ SCH (21:00)
[2016-12-02] MEDS: ATORVASTATIN CALCIUM 40 MG TABLET. PO SCH (21:49)
[2016-12-02] MEDS: INSULIN DETEMIR 300 UNITS/3 ML INSULN.PEN. SQ SCH (21:59)
[2016-12-03] MEDS: traMADol 50 MG TABLET PO PRN ×4 (02:41→21:06)
[2016-12-03] MEDS: oxyCODONE/APAP 5/325 1 TAB TABLET PO PRN ×4 (02:41→21:07)
[2016-12-03 02:43] VITALS: BP 139/63
[2016-12-03 05:42] LABS: ALBUMIN 2.7 g/dL (3.4-5.0); CALCIUM 8.5 mg/dL (8.5-10.1); CREATININE 2.8 mg/dL (0.6-1.0); GFR 20.9; PHOSPHORUS 4.8 mg/dL (2.6-4.7); POTASSIUM 4.4 mmol/L (3.5-5.1)
[2016-12-03 07:00] VITALS: BP 143/66
[2016-12-03] MEDS: IPRATRPIUM/ALBUTEROL 0.5/2.5MG 3 ML NEBU. NEB SCH ×4 (08:21→20:26)
[2016-12-03] MEDS: ENOXAPARIN 40 MG/0.4 ML SYRINGE. SQ SCH ×2 (08:58→21:08)
[2016-12-03] MEDS: predniSONE 20 MG TABLET PO SCH (08:59)
[2016-12-03] MEDS: amLODIPine BESYLATE 10 MG TABLET PO SCH (08:59)
[2016-12-03] MEDS: DOXYCYCLINE HYCLATE 100 MG TABLET PO SCH ×2 (08:59→21:06)
[2016-12-03] MEDS: PANTOPRAZOLE 40 MG TABLET.DR. PO SCH (09:00)
[2016-12-03] MEDS: cloNIDine HCL 0.2 MG TABLET PO SCH ×2 (09:00→21:08)
[2016-12-03] MEDS: CARVEDILOL 12.5 MG TABLET. PO SCH ×2 (09:01→17:06)
[2016-12-03] MEDS: glipiZIDE 5 MG TABLET PO SCH ×2 (09:02→17:05)
[2016-12-03] MEDS: INSULIN ASPART 300 UNITS/3 ML INSULN.PEN SQ SCH ×6 (09:09→17:11)
[2016-12-03] MEDS: POLYETHYLENE GLYCOL 3350 17 GM PACKET. PO PRN (09:10)
--- NOTE | 2016-12-03 10:01 | PDOC ---
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[place] hypertension Morbid obesity Acute kidney injury with chronic kidney disease 3 Mild elevation of troponins Plan Diuresis as per cardiology, monitor renal functions closely Good urine output Creatinine is 2.6 with IV hydration BiPAP as needed Nicotine patch as needed Nuclear medicine renal scan pending Cardiology and nephrology following Continue Levemir with sliding scale insulin Physical therapy and occupational therapy As needed Advair nebulizations DVT prophylaxis prognosis guarded History of Present Illness History of Present Illness Not feeling better Drowsy No fever no chills Vitals Vitals Vital Signs Date Time Temp Pulse Resp B/P (MAP) Pulse Ox O2 Delivery O2 Flow Rate FiO2 12/03/16 09:01 67 143/66 12/03/16 08:22 95 Room Air 12/03/16 02:43 97.7 20 2.0 97.7 Physical Exam General: Alert, No acute distress, Other (drowsy, obese) Heart: Regular rate, Normal S1, Normal S2 Lungs: Clear Abdomen: Normal bowel sounds, Soft, Other (OBESE) Extremities: No clubbing, No cyanosis Skin: No rashes, No breakdown Labs LABS Laboratory Tests Test 12/02/16 10:23 12/02/16 10:50 12/02/16 11:39 12/02/16 17:17 Procalcitonin < 0.10 ng/mL (0.00-0.10) Complement C3 159 mg/dL (82-167) Complement C4 29 mg/dL (14-44) Urine Protein 56.7 mg/dL (Not Estab.) Urine Creatinine 93.6 mg/dL (Not Estab.) Urine Protein/Creatinine Ratio 606 mg/g creat (0-200) Glucose (Fingerstick) 110 mg/dL (70-99) 163 mg/dL (70-99) Test 12/02/16 20:57 12/03/16 04:40 12/03/16 08:49 Glucose (Fingerstick) 291 mg/dL (70-99) 215 mg/dL (70-99) Sodium Level 134 mmol/L (136-145) Potassium Level 4.4 mmol/L (3.5-5.1) Chloride Level 97 mmol/L (98-107) Carbon Dioxide Level 27 mmol/L (21-32) Anion Gap 10 (6-14) Blood Urea Nitrogen 46 mg/dL (7-20) Creatinine 2.8 mg/dL (0.6-1.0) Estimated GFR (Cockcroft-Gault) 20.9 Glucose Level 268 mg/dL (70-99) Calcium Level 8.5 mg/dL (8.5-10.1) Phosphorus Level 4.8 mg/dL (2.6-4.7) Magnesium Level 1.8 mg/dL (1.8-2.4) Albumin 2.7 g/dL (3.4-5.0) Assessment and Plan Assessmemt and Plan Problems Medical Problems: (1) Acute respiratory failure with hypoxia Status: Acute (2) CHF (congestive heart failure) Status: Acute Problems: Comment Review of Relevant I have reviewed the following items jessee (where applicable) has been applied. Labs Laboratory Tests Test 12/01/16 12:22 12/01/16 13:55 12/01/16 17:53 12/01/16 21:25 Glucose (Fingerstick) 243 mg/dL (70-99) 248 mg/dL (70-99) 368 mg/dL (70-99) Erythrocyte Sedimentation Rate 102 (0-25) Test 12/02/16 04:50 12/02/16 07:18 12/02/16 10:23 12/02/16 10:50 White Blood Count 8.0 x10^3/uL (4.0-11.0) Red Blood Count 3.01 x10^6/uL (3.50-5.40) Hemoglobin 8.2 g/dL (12.0-15.5) Hematocrit 25.8 % (36.0-47.0) Mean Corpuscular Volume 86 fL (79-100) Mean Corpuscular Hemoglobin 27 pg (25-35) Mean Corpuscular Hemoglobin Concent 32 g/dL (31-37) Red Cell Distribution Width 17.2 % (11.5-14.5) Platelet Count 331 x10^3/uL (140-400) Neutrophils (%) (Auto) 77 % (31-73) Lymphocytes (%) (Auto) 12 % (24-48) Monocytes (%) (Auto) 10 % (0-9) Eosinophils (%) (Auto) 0 % (0-3) Basophils (%) (Auto) 0 % (0-3) Neutrophils # (Auto) 6.2 x10^3uL (1.8-7.7) Lymphocytes # (Auto) 0.9 x10^3/uL (1.0-4.8) Monocytes # (Auto) 0.8 x10^3/uL (0.0-1.1) Eosinophils # (Auto) 0.0 x10^3/uL (0.0-0.7) Basophils # (Auto) 0.0 x10^3/uL (0.0-0.2) Sodium Level 138 mmol/L (136-145) Potassium Level 3.9 mmol/L (3.5-5.1) Chloride Level 101 mmol/L (98-107) Carbon Dioxide Level 28 mmol/L (21-32) Anion Gap 9 (6-14) Blood Urea Nitrogen 41 mg/dL (7-20) Creatinine 2.6 mg/dL (0.6-1.0) Estimated GFR (Cockcroft-Gault) 22.8 Glucose Level 239 mg/dL (70-99) Calcium Level 8.0 mg/dL (8.5-10.1) Phosphorus Level 5.0 mg/dL (2.6-4.7) Magnesium Level 1.7 mg/dL (1.8-2.4) Albumin 2.5 g/dL (3.4-5.0) Glucose (Fingerstick) 186 mg/dL (70-99) Procalcitonin < 0.10 ng/mL (0.00-0.10) Complement C3 159 mg/dL (82-167) Complement C4 29 mg/dL (14-44) Urine Protein 56.7 mg/dL (Not Estab.) Urine Creatinine 93.6 mg/dL (Not Estab.) Urine Protein/Creatinine Ratio 606 mg/g creat (0-200) Test 12/02/16 11:39 12/02/16 17:17 12/02/16 20:57 12/03/16 04:40 Glucose (Fingerstick) 110 mg/dL (70-99) 163 mg/dL (70-99) 291 mg/dL (70-99) Sodium Level 134 mmol/L (136-145) Potassium Level 4.4 mmol/L (3.5-5.1) Chloride Level 97 mmol/L (98-107) Carbon Dioxide Level 27 mmol/L (21-32) Anion Gap 10 (6-14) Blood Urea Nitrogen 46 mg/dL (7-20) Creatinine 2.8 mg/dL (0.6-1.0) Estimated GFR (Cockcroft-Gault) 20.9 Glucose Level 268 mg/dL (70-99) Calcium Level 8.5 mg/dL (8.5-10.1) Phosphorus Level 4.8 mg/dL (2.6-4.7) Magnesium Level 1.8 mg/dL (1.8-2.4) Albumin 2.7 g/dL (3.4-5.0) Test 12/03/16 08:49 Glucose (Fingerstick) 215 mg/dL (70-99) Laboratory Tests Test 12/02/16 10:23 12/02/16 10:50 12/02/16 11:39 12/02/16 17:17 Procalcitonin < 0.10 ng/mL (0.00-0.10) Complement C3 159 mg/dL (82-167) Complement C4 29 mg/dL (14-44) Urine Protein 56.7 mg/dL (Not Estab.) Urine Creatinine 93.6 mg/dL (Not Estab.) Urine Protein/Creatinine Ratio 606 mg/g creat (0-200) Glucose (Fingerstick) 110 mg/dL (70-99) 163 mg/dL (70-99) Test 12/02/16 20:57 12/03/16 04:40 12/03/16 08:49 Glucose (Fingerstick) 291 mg/dL (70-99) 215 mg/dL (70-99) Sodium Level 134 mmol/L (136-145) Potassium Level 4.4 mmol/L (3.5-5.1) Chloride Level 97 mmol/L (98-107) Carbon Dioxide Level 27 mmol/L (21-32) Anion Gap 10 (6-14) Blood Urea Nitrogen 46 mg/dL (7-20) Creatinine 2.8 mg/dL (0.6-1.0) Estimated GFR (Cockcroft-Gault) 20.9 Glucose Level 268 mg/dL (70-99) Calcium Level 8.5 mg/dL (8.5-10.1) Phosphorus Level 4.8 mg/dL (2.6-4.7) Magnesium Level 1.8 mg/dL (1.8-2.4) Albumin 2.7 g/dL (3.4-5.0) Medications Current Medications Furosemide (Lasix) 40 mg 1X ONCE IVP Last administered on 11/30/16 02:03; Start 11/30/16 at 01:45; Stop 11/30/16 at 01:46; Status DC Aspirin (Miguel Aspirin) 325 mg 1X ONCE PO Last administered on 11/30/16 02:04 ; Start 11/30/16 at 02:15; Stop 11/30/16 at 02:16; Status DC Ondansetron HCl (Zofran) 4 mg PRN Q8HRS PRN IV NAUSEA/VOMITING; Start 11/30/16 at 02:30; Stop 12/01/16 at 02:29; Status DC Fentanyl Citrate (Fentanyl 2ml Vial) 50 mcg PRN Q2HR PRN IV PAIN Last administered on 11/30/16 08:01; Start 11/30/16 at 02:30; Stop 12/01/16 at 02:29 ; Status DC Acetaminophen (Tylenol) 650 mg PRN Q4HRS PRN PO FEVER Last administered on 11/30 17:23; Start 11/30/16 at 02:30; Stop 12/01/16 at 02:29; Status DC Nitroglycerin (Nitrostat) 0.4 mg PRN Q5MIN PRN SL CHEST PAIN; Start 11/30/16 at 02:30; Stop 12/01/16 at 02:29; Status DC Albuterol/ Ipratropium (Duoneb) 3 ml RTQID NEB Last administered on 11/30/16 19:45; Start 11/30/16 at 08:00; Stop 12/01/16 at 07:59; Status DC Insulin Aspart (NovoLOG) 0-5 UNITS TIDWMEALS SQ Last administered on 12/03/16 09:10; Start 11/30/16 at 08:00 Dextrose (Dextrose 50%-Water Syringe) 12.5 gm PRN Q15MIN PRN IV SEE COMMENTS; Start 11/30/16 at 02:30 Furosemide (Lasix) 40 mg Q12HR IVP Last administered on 12/01/16 09:36; Start 11/30/16 at 09:00; Stop 12/01/16 at 14:46; Status DC Amlodipine Besylate (Norvasc) 10 mg DAILY PO Last administered on 12/03/16 08: 59; Start 11/30/16 at 11:00 Atorvastatin Calcium (Lipitor) 40 mg QHS PO Last administered on 12/02/16 21: 49; Start 11/30/16 at 21:00 Clonidine HCl (Catapres) 0.2 mg BID PO Last administered on 12/03/16 09:00; Start 11/30/16 at 11:00 Hydralazine HCl (Apresoline) 100 mg Q8HRS PO Last administered on 12/03/16 06: 26; Start 11/30/16 at 14:00 Acetaminophen/ Hydrocodone Bitart (Lortab 5/325) 1 tab PRN Q6HRS PRN PO SEVERE PAIN Last administered on 12/01/16 12:37; Start 11/30/16 at 10:45; Stop at 19:33; Status DC Insulin Aspart (NovoLOG) 10 units TIDAC SQ Last administered on 12/03/16 09:09 ; Start 11/30/16 at 11:30 Albuterol Sulfate (Ventolin Neb Soln) 2.5 mg PRN Q4HRS PRN NEB SOA Last administered on 12/01/16 23:32; Start 11/30/16 at 11:00 Carvedilol (Coreg) 25 mg BIDWMEALS PO Last administered on 12/03/16 09:01; Start 11/30/16 at 17:00 Glipizide (Glucotrol) 5 mg BIDBFRMEAL PO Last administered on 12/03/16 09:02; Start 11/30/16 at 16:30 Pantoprazole Sodium (Protonix) 40 mg DAILYAC PO Last administered on 12/03/16 09:00; Start 11/30/16 at 11:00 Insulin Detemir (Levemir) 30 units QHS SQ Last administered on 11/30/16 20:48 ; Start 11/30/16 at 21:00; Stop 12/01/16 at 12:35; Status DC Acetaminophen (Tylenol) 650 mg PRN Q6HRS PRN PO FEVER; Start 11/30/16 at 13:00 Ondansetron HCl (Zofran) 4 mg PRN Q6HRS PRN IV NAUSEA/VOMITING; Start 11/30/16 at 13:00 Morphine Sulfate 2 mg PRN Q2HR PRN IV PAIN Last administered on 11/30/16 18:10 ; Start 11/30/16 at 13:00 Tramadol HCl (Ultram) 50 mg PRN Q6HRS PRN PO PAIN Last administered on 06:32; Start 11/30/16 at 13:00 Hydralazine HCl (Apresoline) 10 mg PRN Q4HRS PRN IVP ELEVATED BP, SEE COMMENTS ; Start 11/30/16 at 13:00 Docusate Sodium (Colace) 100 mg PRN DAILY PRN PO CONSTIPATION Last administered on 12/01/16 05:33; Start 11/30/16 at 13:00 Albuterol/ Ipratropium (Duoneb) 3 ml RTQID NEB Last administered on 12/03/16 08:21; Start 11/30/16 at 16:00 Enoxaparin Sodium (Lovenox 40mg Syringe) 40 mg BID SQ Last administered on 12/03 08:58; Start 11/30/16 at 21:00 Prednisone (Prednisone) 30 mg DAILY PO Last administered on 12/03/16 08:59; Start 11/30/16 at 17:15 Doxycycline Hyclate (Vibra-Tab) 100 mg BID PO Last administered on 12/03/16 08 :59; Start 11/30/16 at 21:00 Insulin Detemir (Levemir) 35 units QHS SQ Last administered on 12/02/16 21:59 ; Start 12/01/16 at 21:00 Magnesium Sulfate/ Dextrose 50 ml @ 25 mls/hr PRN DAILY PRN IV for Mag < 1.7 on am labs; Start 12/01/16 at 13:00 Oxycodone/ Acetaminophen (Percocet 5/325) 1 tab PRN Q4HRS PRN PO PAIN Last administered on 12/03/16 06:33; Start 12/01/16 at 19:45 Furosemide (Lasix) 40 mg 1X ONCE IVP Last administered on 12/02/16 08:14; Start 12/02/16 at 07:30; Stop 12/02/16 at 07:34; Status DC Darbepoetin Manjit (Aranesp) 60 mcg WEEKLYHS SQ Last administered on 12/02/16 21 :48; Start 12/02/16 at 21:00 Magnesium Sulfate/ Dextrose 100 ml @ 100 mls/hr 1X ONCE IV Last administered on 12/02/16 10:42; Start 12/02/16 at 10:30; Stop 12/02/16 at 11:29; Status DC Docusate Sodium (Colace) 100 mg DAILY PO Last administered on 12/02/16 17:42; Start 12/02/16 at 18:00 Polyethylene Glycol (miraLAX PACKET) 17 gm PRN DAILY PRN PO CONSTIPATION Last administered on 12/03/16 09:10; Start 12/02/16 at 17:45 Active Scripts Active Wilson 5-325 Tablet (Acetaminophen/Hydrocodone Bitart) 1 Each Tablet 1-2 Tab PO Q4-6HRS PRN Amlodipine Besylate 10 Mg Tablet 10 Mg PO DAILY Novolog Flexpen (Insulin Aspart) 100 Unit/1 Ml Insuln.pen 10 Units SQ TIDAC Hydralazine Hcl 50 Mg Tablet 100 Mg PO Q8HRS Furosemide 40 Mg Tablet 40 Mg PO DAILY Reported Wang Hummel (Insulin Glargine,Hum.rec.anlog) 300 Unit/1 Ml Insuln.pen 36 Unit SQ HS Atorvastatin Calcium 40 Mg Tablet 1 Tab PO DAILY Omeprazole 40 Mg Capsule.dr 1 Cap PO DAILY Ventolin Hfa Inhaler (Albuterol Sulfate) 18 Gm Hfa.aer.ad 2 Puff IH PRN Q4-6HRS Percocet 10-325 Mg Tablet (Oxycodone/Acetaminophen) 1 Each Tablet 1 Tab PO Q4- 6HRS Glipizide 10 Mg Tablet 1 Tab PO BIDAC Clonidine Hcl 0.2 Mg Tablet 1 Tab PO BID Coreg (Carvedilol) 25 Mg Tablet 1 Tab PO BID92 Vitals/I & O Vital Sign - Last 24 Hours 12/02/16 12/02/16 12/02/16 12/02/16 10:38 10:38 11:00 12:04 Temp 98.4 98.4 Pulse 66 64 60 Resp 18 B/P (MAP) 167/77 167/77 167/77 (107) Pulse Ox 96 97 O2 Delivery Nasal Cannula Nasal Cannula O2 Flow Rate 3.0 3.0 12/02/16 12/02/16 12/02/16 12/02/16 13:16 15:00 15:10 16:19 Temp 98.6 98.6 Pulse 67 64 Resp 18 20 B/P (MAP) 122/52 (75) 122/52 Pulse Ox 2 97 96 O2 Delivery Nasal Cannula Room Air Room Air 12/02/16 12/02/16 12/02/16 12/02/16 17:21 17:23 18:21 19:45 Pulse 64 Resp 16 16 B/P (MAP) 167/74 O2 Delivery Room Air Room Air Nasal Cannula O2 Flow Rate 3.0 12/02/16 12/02/16 12/02/16 12/02/16 19:51 20:06 21:49 21:49 Temp 98.1 98.1 Pulse 80 80 80 Resp 20 B/P (MAP) 107/55 (72) 107/55 107/55 Pulse Ox 97 98 O2 Delivery Room Air Room Air 12/02/16 12/03/16 12/03/16 12/03/16 22:34 02:43 06:26 08:22 Temp 98.3 97.7 98.3 97.7 Pulse 69 68 68 Resp 20 20 B/P (MAP) 115/65 (82) 139/63 (88) 139/63 Pulse Ox 96 100 95 O2 Delivery Room Air Nasal Cannula Room Air O2 Flow Rate 2.0 12/03/16 12/03/16 12/03/16 08:59 09:00 09:01 Pulse 67 65 67 B/P (MAP) 143/66 143/66 143/66 Intake and Output 12/02/16 12/02/16 12/03/16 15:00 23:00 07:00 Intake Total 1180 ml 350 ml Output Total 550 ml Balance 630 ml 350 ml JOANA MARION MD Dec 03, 2016 10:01
[2016-12-03 11:00] VITALS: BP 133/63
[2016-12-03] MEDS: DOCUSATE SODIUM 100 MG CAPSULE. PO SCH (11:32)
--- NOTE | 2016-12-03 12:13 | PDOC ---
PULMONARY PROGRESS NOTES Subjective PT FEELS BETTER LESS SOA, has occ cough, has chest wall pain NOT USED BIPAP Vitals Vital Signs Date Time Temp Pulse Resp B/P (MAP) Pulse Ox O2 Delivery O2 Flow Rate FiO2 12/03/16 11:54 96 Room Air 12/03/16 11:00 97.7 67 22 133/63 (86) 97.7 12/03/16 08:00 3.0 General: Alert, No acute distress HEENT: Other (NC AT PERRL) Lungs: Clear Cardiovascular: S1, S2 Abdomen: Soft, Non-tender Extremities: No Edema Skin: Warm Labs Laboratory Tests Test 12/01/16 12:22 12/01/16 13:55 12/01/16 17:53 12/01/16 21:25 Glucose (Fingerstick) 243 mg/dL (70-99) 248 mg/dL (70-99) 368 mg/dL (70-99) Erythrocyte Sedimentation Rate 102 (0-25) Test 12/02/16 04:50 12/02/16 07:18 12/02/16 10:23 12/02/16 10:50 White Blood Count 8.0 x10^3/uL (4.0-11.0) Red Blood Count 3.01 x10^6/uL (3.50-5.40) Hemoglobin 8.2 g/dL (12.0-15.5) Hematocrit 25.8 % (36.0-47.0) Mean Corpuscular Volume 86 fL (79-100) Mean Corpuscular Hemoglobin 27 pg (25-35) Mean Corpuscular Hemoglobin Concent 32 g/dL (31-37) Red Cell Distribution Width 17.2 % (11.5-14.5) Platelet Count 331 x10^3/uL (140-400) Neutrophils (%) (Auto) 77 % (31-73) Lymphocytes (%) (Auto) 12 % (24-48) Monocytes (%) (Auto) 10 % (0-9) Eosinophils (%) (Auto) 0 % (0-3) Basophils (%) (Auto) 0 % (0-3) Neutrophils # (Auto) 6.2 x10^3uL (1.8-7.7) Lymphocytes # (Auto) 0.9 x10^3/uL (1.0-4.8) Monocytes # (Auto) 0.8 x10^3/uL (0.0-1.1) Eosinophils # (Auto) 0.0 x10^3/uL (0.0-0.7) Basophils # (Auto) 0.0 x10^3/uL (0.0-0.2) Sodium Level 138 mmol/L (136-145) Potassium Level 3.9 mmol/L (3.5-5.1) Chloride Level 101 mmol/L (98-107) Carbon Dioxide Level 28 mmol/L (21-32) Anion Gap 9 (6-14) Blood Urea Nitrogen 41 mg/dL (7-20) Creatinine 2.6 mg/dL (0.6-1.0) Estimated GFR (Cockcroft-Gault) 22.8 Glucose Level 239 mg/dL (70-99) Calcium Level 8.0 mg/dL (8.5-10.1) Phosphorus Level 5.0 mg/dL (2.6-4.7) Magnesium Level 1.7 mg/dL (1.8-2.4) Albumin 2.5 g/dL (3.4-5.0) Glucose (Fingerstick) 186 mg/dL (70-99) Procalcitonin < 0.10 ng/mL (0.00-0.10) Complement C3 159 mg/dL (82-167) Complement C4 29 mg/dL (14-44) Urine Protein 56.7 mg/dL (Not Estab.) Urine Creatinine 93.6 mg/dL (Not Estab.) Urine Protein/Creatinine Ratio 606 mg/g creat (0-200) Test 12/02/16 11:39 12/02/16 17:17 12/02/16 20:57 12/03/16 04:40 Glucose (Fingerstick) 110 mg/dL (70-99) 163 mg/dL (70-99) 291 mg/dL (70-99) Sodium Level 134 mmol/L (136-145) Potassium Level 4.4 mmol/L (3.5-5.1) Chloride Level 97 mmol/L (98-107) Carbon Dioxide Level 27 mmol/L (21-32) Anion Gap 10 (6-14) Blood Urea Nitrogen 46 mg/dL (7-20) Creatinine 2.8 mg/dL (0.6-1.0) Estimated GFR (Cockcroft-Gault) 20.9 Glucose Level 268 mg/dL (70-99) Calcium Level 8.5 mg/dL (8.5-10.1) Phosphorus Level 4.8 mg/dL (2.6-4.7) Magnesium Level 1.8 mg/dL (1.8-2.4) Albumin 2.7 g/dL (3.4-5.0) Test 12/03/16 08:49 Glucose (Fingerstick) 215 mg/dL (70-99) Laboratory Tests Test 12/02/16 17:17 12/02/16 20:57 12/03/16 04:40 12/03/16 08:49 Glucose (Fingerstick) 163 mg/dL (70-99) 291 mg/dL (70-99) 215 mg/dL (70-99) Sodium Level 134 mmol/L (136-145) Potassium Level 4.4 mmol/L (3.5-5.1) Chloride Level 97 mmol/L (98-107) Carbon Dioxide Level 27 mmol/L (21-32) Anion Gap 10 (6-14) Blood Urea Nitrogen 46 mg/dL (7-20) Creatinine 2.8 mg/dL (0.6-1.0) Estimated GFR (Cockcroft-Gault) 20.9 Glucose Level 268 mg/dL (70-99) Calcium Level 8.5 mg/dL (8.5-10.1) Phosphorus Level 4.8 mg/dL (2.6-4.7) Magnesium Level 1.8 mg/dL (1.8-2.4) Albumin 2.7 g/dL (3.4-5.0) Medications Active Scripts Medications Dose Route/Sig Max Daily Dose Days Date Category Anthonyluciekarishma Solostar (Insulin Glargine,Hum.rec.anlog) 300 Unit/1 Ml Insuln.pen 36 Unit SQ HS 10/10/16 Reported [place] 5-325 Tablet (Acetaminophen/Hydrocodone Bitart) 1 Each Tablet 1-2 Tab PO Q4-6HRS PRN 01/30/16 Rx Amlodipine Besylate 10 Mg Tablet 10 Mg PO DAILY 09/27/15 Rx Novolog Flexpen (Insulin Aspart) 100 Unit/1 Ml Insuln.pen 10 Units SQ TIDAC 05/27/15 Rx Hydralazine Hcl 50 Mg Tablet 100 Mg PO Q8HRS 05/27/15 Rx Furosemide 40 Mg Tablet 40 Mg PO DAILY 05/27/15 Rx Atorvastatin Calcium 40 Mg Tablet 1 Tab PO DAILY 05/23/15 Reported Omeprazole 40 Mg Capsule.dr 1 Cap PO DAILY 05/23/15 Reported Ventolin Hfa Inhaler (Albuterol Sulfate) 18 Gm Hfa.aer.ad 2 Puff IH PRN Q4-6HRS 05/23/15 Reported Percocet 10-325 Mg Tablet (Oxycodone/Acetaminophen) 1 Each Tablet 1 Tab PO Q4-6HRS 06/10/14 Reported Glipizide 10 Mg Tablet 1 Tab PO BIDAC 06/10/14 Reported Clonidine Hcl 0.2 Mg Tablet 1 Tab PO BID 06/10/14 Reported Coreg (Carvedilol) 25 Mg Tablet 1 Tab PO BID92 06/10/14 Reported Impression . A/C HYPOXEMIC RESP FAILURE AECOPD ACUTE HEART FAIULRE NON COMPLIABNCE OBESITY TOBACCO DEPENDENCE DM 2 HTN Plan . ABX FOR TOTAL OF 7 DAYS PREDNISONE W TAPER BY 10 MG Q 3D BRONCHODILATOR PROTONIX LOVENOX FOR PROPHYLAXIS OK TO DC FW UP AT ASHA HANNA MD Dec 03, 2016 12:13
--- NOTE | 2016-12-03 14:15 | PDOC ---
CARDIO Progress Notes Date and Time Date of Service 12/03/16 Time of Evaluation 1250 Subjective Subjective: No Chest Pain, No shortness of breath, No Palpitations, Other Vitals Vitals Vital Signs Date Time Temp Pulse Resp B/P (MAP) Pulse Ox O2 Delivery O2 Flow Rate FiO2 12/03/16 12:41 Room Air 12/03/16 11:54 96 12/03/16 11:00 97.7 67 22 133/63 (86) 97.7 12/03/16 08:00 3.0 Weight Weight [ ] Input and Output Intake and Output Intake and Output 12/03/16 07:00 Intake Total 1530 ml Output Total 550 ml Balance 980 ml Intake Oral 1530 ml Output Urine Total 550 ml Laboratory Labs Laboratory Tests Test 12/02/16 17:17 12/02/16 20:57 12/03/16 04:40 12/03/16 08:49 Glucose (Fingerstick) 163 mg/dL (70-99) 291 mg/dL (70-99) 215 mg/dL (70-99) Sodium Level 134 mmol/L (136-145) Potassium Level 4.4 mmol/L (3.5-5.1) Chloride Level 97 mmol/L (98-107) Carbon Dioxide Level 27 mmol/L (21-32) Anion Gap 10 (6-14) Blood Urea Nitrogen 46 mg/dL (7-20) Creatinine 2.8 mg/dL (0.6-1.0) Estimated GFR (Cockcroft-Gault) 20.9 Glucose Level 268 mg/dL (70-99) Calcium Level 8.5 mg/dL (8.5-10.1) Phosphorus Level 4.8 mg/dL (2.6-4.7) Magnesium Level 1.8 mg/dL (1.8-2.4) Albumin 2.7 g/dL (3.4-5.0) Test 12/03/16 11:37 Glucose (Fingerstick) 229 mg/dL (70-99) Physical Exam HEENT: Neck Supple W Full Motion Chest: Symmetric LUNGS: Clear to Auscultation, Other (diminished bases ) Heart: S1S2, RRR Abdomen: Soft N/T, Other (truncal obesity ) Neurology: alert, oriented, follow commands Assessment Assessment 1. Acute on chronic diastolic HF; CXR with vascular congestion. Now compensated. Lasix on hold given increasing Cr- defer resumption to renal. Limited echo with LVEF45%, although technically difficult study. No CYDNEY/ARB given MARY. NM renal scan with evidence of DEVONTE- will f/u on an outpatient basis. Supportive care 2. NSTEMI; trop peak 0.962. Most probably type II, demand ischemia secondary to hypoxia, CHF, and malignant HTN. CP free. EKG without significant acute changes. Cath last year without obstructive disease as noted above. Lipids on goal. Continue medical management 3. Acute on chronic respiratory failure secondary to acute HF. improved. per pulm 4. Pulmonary HTN; PAP 44 5. Malignant Hypertension; now better controlled. continue current therapy. 6. DM, II; uncontrolled. Per PCP 7. MARY with CKD; Cr now 2.8. per nephrology SAM WELSH APRN Dec 03, 2016 14:14
[2016-12-03 14:47] VITALS: BP 150/66
--- NOTE | 2016-12-03 14:57 | PDOC ---
SUBJECTIVE ROS MARY/ ATN + CKD III Doign Ok and wants to go home n CVS: no Orthopnea, no CP RESP: no SOB, no MORLEY GI: no Nausea, no Vomiting : no Dysuria, no Urgency OBJECTIVE Vital Signs Vital Signs Date Time Temp Pulse Resp B/P (MAP) Pulse Ox O2 Delivery O2 Flow Rate FiO2 12/03/16 12:41 Room Air 12/03/16 11:54 96 12/03/16 11:00 97.7 67 22 133/63 (86) 97.7 12/03/16 08:00 3.0 I & 0 Intake and Output 12/03/16 07:00 Intake Total 1530 ml Output Total 550 ml Balance 980 ml Intake Oral 1530 ml Output Urine Total 550 ml PHYSICAL EXAM Physical Exam General Appearance: Awake Alert Oriented x 3 In no Distress Eyes: VIsion Unchanged Conjunctiva Normal EN: No EN Drainage Mucous Memb. moist Neck: no JVD min JVP Supple no Thyromegaly CVS: S1 S2 ? Murmur No Gallop No Rub tr if at all any Edema Resp: no Rales no Rhonchi no Acc. Muscle use; occ wheeze GI: BS +ve NO Bruit Non Tender Non Distended : no CVA tenderness; no Suprapubic Tenderness Assessment & Plan: MARY - currently non-Oliguri. Scan results noted and ? ATN. Current FLuid and E -lyte status does not necessitate emergent need for Dialysis. Will re-evaluate for Dialysis in am. Doubt Pulm-renal synd per se. watch trend of Creat. Oliguria - better currently. CKD III cr Cl 49 on last check Proteinuria - min on requantitiation with ratio fl Overload / hypoxia - "resp failure" - symptomatically much improved after - ve fluid balance. recheck CXR is also somewhat better. check Procal to R/o pnuemonitis since ESR is ^^^. Recehck CXR Anemia: Epogen started HTN: Current BP meds reviewed. See orders for changes. Lowish Mag - better after IV Mag x 1 ^phos - may need binders started if > 5.0 COMMENT/RELEVANT DATA Meds Current Medications Medications (Trade) Dose Ordered Sig/Rob Start Time Stop Time Status Last Admin Dose Admin Acetaminophen (Tylenol) 650 mg PRN Q6HRS PRN 11/30/16 13:00 Acetaminophen/ Hydrocodone Bitart (Lortab 5/325) 1 tab PRN Q6HRS PRN 11/30/16 10:45 12/01/16 19:33 DC 12/01/16 12:37 1 TAB Albuterol Sulfate (Ventolin Neb Soln) 2.5 mg PRN Q4HRS PRN 11/30/16 11:00 12/01/16 23:32 2.5 MG Albuterol/ Ipratropium (Duoneb) 3 ml RTQID 11/30/16 16:00 12/03/16 11:52 3 ML Amlodipine Besylate (Norvasc) 10 mg DAILY 11/30/16 11:00 12/03/16 08:59 10 MG Aspirin (Miguel Aspirin) 325 mg 1X ONCE 11/30/16 02:15 11/30/16 02:16 DC 11/30/16 02:04 325 MG Atorvastatin Calcium (Lipitor) 40 mg QHS 11/30/16 21:00 12/02/16 21:49 40 MG Carvedilol (Coreg) 25 mg BIDWMEALS 11/30/16 17:00 12/03/16 09:01 25 MG Clonidine HCl (Catapres) 0.2 mg BID 11/30/16 11:00 12/03/16 09:00 0.2 MG Darbepoetin Manjit (Aranesp) 60 mcg WEEKLYHS 12/02/16 21:00 12/02/16 21:48 60 MCG Dextrose (Dextrose 50%-Water Syringe) 12.5 gm PRN Q15MIN PRN 11/30/16 02:30 Docusate Sodium (Colace) 100 mg DAILY 12/02/16 18:00 12/03/16 11:32 100 MG Doxycycline Hyclate (Vibra-Tab) 100 mg BID 11/30/16 21:00 12/03/16 08:59 100 MG Enoxaparin Sodium (Lovenox 40mg Syringe) 40 mg BID 11/30/16 21:00 12/03/16 08:58 40 MG Fentanyl Citrate (Fentanyl 2ml Vial) 50 mcg PRN Q2HR PRN 11/30/16 02:30 12/01/16 02:29 DC 11/30/16 08:01 50 MCG Furosemide (Lasix) 40 mg 1X ONCE 12/02/16 07:30 12/02/16 07:34 DC 12/02/16 08:14 40 MG Glipizide (Glucotrol) 5 mg BIDBFRMEAL 11/30/16 16:30 12/03/16 09:02 5 MG Guaifenesin (Robitussin) 200 mg PRN Q4HRS PRN 12/03/16 11:00 12/03/16 11:32 200 MG Hydralazine HCl (Apresoline) 10 mg PRN Q4HRS PRN 11/30/16 13:00 Insulin Aspart (NovoLOG) 10 units TIDAC 11/30/16 11:30 12/03/16 11:30 10 UNITS Insulin Detemir (Levemir) 35 units QHS 12/01/16 21:00 12/02/16 21:59 35 UNITS Magnesium Sulfate/ Dextrose 100 ml @ 100 mls/hr 1X ONCE 12/02/16 10:30 12/02/16 11:29 DC 12/02/16 10:42 100 MLS/HR Morphine Sulfate 2 mg PRN Q2HR PRN 11/30/16 13:00 11/30/16 18:10 2 MG Nitroglycerin (Nitrostat) 0.4 mg PRN Q5MIN PRN 11/30/16 02:30 12/01/16 02:29 DC Ondansetron HCl (Zofran) 4 mg PRN Q6HRS PRN 11/30/16 13:00 Oxycodone/ Acetaminophen (Percocet 5/325) 1 tab PRN Q4HRS PRN 12/01/16 19:45 12/03/16 12:40 1 TAB Pantoprazole Sodium (Protonix) 40 mg DAILYAC 11/30/16 11:00 12/03/16 09:00 40 MG Polyethylene Glycol (miraLAX PACKET) 17 gm PRN DAILY PRN 12/02/16 17:45 12/03/16 09:10 17 GM Prednisone (Prednisone) 30 mg DAILY 11/30/16 17:15 12/03/16 08:59 30 MG Tramadol HCl (Ultram) 50 mg PRN Q6HRS PRN 11/30/16 13:00 12/03/16 06:32 50 MG Lab Laboratory Tests Test 12/02/16 17:17 12/02/16 20:57 12/03/16 04:40 12/03/16 08:49 Glucose (Fingerstick) 163 mg/dL (70-99) 291 mg/dL (70-99) 215 mg/dL (70-99) Sodium Level 134 mmol/L (136-145) Potassium Level 4.4 mmol/L (3.5-5.1) Chloride Level 97 mmol/L (98-107) Carbon Dioxide Level 27 mmol/L (21-32) Anion Gap 10 (6-14) Blood Urea Nitrogen 46 mg/dL (7-20) Creatinine 2.8 mg/dL (0.6-1.0) Estimated GFR (Cockcroft-Gault) 20.9 Glucose Level 268 mg/dL (70-99) Calcium Level 8.5 mg/dL (8.5-10.1) Phosphorus Level 4.8 mg/dL (2.6-4.7) Magnesium Level 1.8 mg/dL (1.8-2.4) Albumin 2.7 g/dL (3.4-5.0) Test 12/03/16 11:37 Glucose (Fingerstick) 229 mg/dL (70-99) RAFAEL VELIZ MD Dec 03, 2016 14:56
--- NOTE | 2016-12-03 15:52 | RAD ---
Indication follow-up congestive heart failure. A two-view examination of the chest was performed and is compared to a study 2 days previously. There is unchanged cardiomegaly. There are scattered areas of volume loss in the mid and lower lung dawn likely reflecting atelectasis. There is likely mild pulmonary vascular congestion. Changes of congestive heart failure seen previously however do improved appear slightly improved. IMPRESSION:: Scattered areas of volume loss likely reflecting atelectasis. Stable cardiomegaly. Probable mild improvement in changes of congestive heart failure seen previously
[2016-12-03 19:27] VITALS: BP 126/58
[2016-12-03] MEDS: ATORVASTATIN CALCIUM 40 MG TABLET. PO SCH (21:07)
[2016-12-03] MEDS: INSULIN DETEMIR 300 UNITS/3 ML INSULN.PEN. SQ SCH (21:11)
[2016-12-03 23:00] VITALS: BP 121/56
[2016-12-04] MEDS: oxyCODONE/APAP 5/325 1 TAB TABLET PO PRN ×2 (02:01→08:57)
[2016-12-04 02:51] VITALS: BP 133/64
[2016-12-04 06:02] LABS: ALBUMIN 2.6 g/dL (3.4-5.0); CALCIUM 7.7 mg/dL (8.5-10.1); CREATININE 2.4 mg/dL (0.6-1.0); PHOSPHORUS 4.3 mg/dL (2.6-4.7); POTASSIUM 4.2 mmol/L (3.5-5.1)
[2016-12-04] MEDS: traMADol 50 MG TABLET PO PRN (06:02)
[2016-12-04 07:53] VITALS: BP 125/56
[2016-12-04] MEDS: IPRATRPIUM/ALBUTEROL 0.5/2.5MG 3 ML NEBU. NEB SCH (08:28)
[2016-12-04] MEDS: DOXYCYCLINE HYCLATE 100 MG TABLET PO SCH (08:48)
[2016-12-04] MEDS: DOCUSATE SODIUM 100 MG CAPSULE. PO SCH (08:48)
[2016-12-04] MEDS: PANTOPRAZOLE 40 MG TABLET.DR. PO SCH (08:51)
[2016-12-04] MEDS: predniSONE 20 MG TABLET PO SCH (08:52)
[2016-12-04] MEDS: amLODIPine BESYLATE 10 MG TABLET PO SCH (08:53)
[2016-12-04] MEDS: cloNIDine HCL 0.2 MG TABLET PO SCH (08:53)
[2016-12-04] MEDS: CARVEDILOL 12.5 MG TABLET. PO SCH (08:53)
[2016-12-04] MEDS: ENOXAPARIN 40 MG/0.4 ML SYRINGE. SQ SCH (08:54)
[2016-12-04] MEDS: glipiZIDE 5 MG TABLET PO SCH (08:56)
[2016-12-04] MEDS: INSULIN ASPART 300 UNITS/3 ML INSULN.PEN SQ SCH ×4 (08:59→12:37)
[2016-12-04] MEDS: POLYETHYLENE GLYCOL 3350 17 GM PACKET. PO PRN (09:03)
--- NOTE | 2016-12-04 10:14 | PDOC ---
SUBJECTIVE ROS MARY doign and feeling well CVS: no Orthopnea, no CP RESP: no SOB, no MORLEY GI: no Nausea, no Vomiting : no Dysuria, no Urgency OBJECTIVE Vital Signs Vital Signs Date Time Temp Pulse Resp B/P (MAP) Pulse Ox O2 Delivery O2 Flow Rate FiO2 12/04/16 09:59 Nasal Cannula 2.0 12/04/16 08:57 99 12/04/16 08:53 67 147/64 12/04/16 07:53 97.8 20 97.8 I & 0 Intake and Output 12/04/16 07:00 Intake Total 1060 ml Output Total 1400 ml Balance -340 ml Intake Oral 1060 ml Output Urine Total 1400 ml PHYSICAL EXAM Physical Exam General Appearance: Awake Alert Oriented x 3 In no Distress Eyes: VIsion Unchanged Conjunctiva Normal EN: No EN Drainage Mucous Memb. moist Neck: no JVD min JVP Supple no Thyromegaly CVS: S1 S2 ? Murmur No Gallop No Rub tr if at all any Edema Resp: no Rales no Rhonchi no Acc. Muscle use; occ wheeze GI: BS +ve NO Bruit Non Tender Non Distended : no CVA tenderness; no Suprapubic Tenderness Assessment & Plan: MARY - Scan results noted and ? ATN. Creat is improving today. UOis good. Current FLuid and E-lyte status does not necessitate emergent need for Dialysis. Will re-evaluate for Dialysis in am. Doubt Pulm-renal synd per se. watch trend of Creat. Serologies pending. CKD III cr Cl 49 on last check - GFR much lower Proteinuria - min on requantitiation with ratio (606mg) fl Overload: Better on Recehck CXR; procal is min. Anemia: Epogen started - may need to ct as OP too HTN: Current BP meds reviewed. See orders for changes. COMMENT/RELEVANT DATA Meds Current Medications Medications (Trade) Dose Ordered Sig/Rob Start Time Stop Time Status Last Admin Dose Admin Acetaminophen (Tylenol) 650 mg PRN Q6HRS PRN 11/30/16 13:00 Acetaminophen/ Hydrocodone Bitart (Lortab 5/325) 1 tab PRN Q6HRS PRN 11/30/16 10:45 12/01/16 19:33 DC 12/01/16 12:37 1 TAB Albuterol Sulfate (Ventolin Neb Soln) 2.5 mg PRN Q4HRS PRN 11/30/16 11:00 12/01/16 23:32 2.5 MG Albuterol/ Ipratropium (Duoneb) 3 ml RTQID 11/30/16 16:00 12/04/16 08:28 3 ML Amlodipine Besylate (Norvasc) 10 mg DAILY 11/30/16 11:00 12/04/16 08:53 10 MG Aspirin (Miguel Aspirin) 325 mg 1X ONCE 11/30/16 02:15 11/30/16 02:16 DC 11/30/16 02:04 325 MG Atorvastatin Calcium (Lipitor) 40 mg QHS 11/30/16 21:00 12/03/16 21:07 40 MG Carvedilol (Coreg) 25 mg BIDWMEALS 11/30/16 17:00 12/04/16 08:53 25 MG Clonidine HCl (Catapres) 0.2 mg BID 11/30/16 11:00 12/04/16 08:53 0.2 MG Darbepoetin Manjit (Aranesp) 60 mcg WEEKLYHS 12/02/16 21:00 12/02/16 21:48 60 MCG Dextrose (Dextrose 50%-Water Syringe) 12.5 gm PRN Q15MIN PRN 11/30/16 02:30 Docusate Sodium (Colace) 100 mg DAILY 12/02/16 18:00 12/04/16 08:48 100 MG Doxycycline Hyclate (Vibra-Tab) 100 mg BID 11/30/16 21:00 12/04/16 08:48 100 MG Enoxaparin Sodium (Lovenox 40mg Syringe) 40 mg BID 11/30/16 21:00 12/04/16 08:54 40 MG Fentanyl Citrate (Fentanyl 2ml Vial) 50 mcg PRN Q2HR PRN 11/30/16 02:30 12/01/16 02:29 DC 11/30/16 08:01 50 MCG Furosemide (Lasix) 40 mg 1X ONCE 12/02/16 07:30 12/02/16 07:34 DC 12/02/16 08:14 40 MG Glipizide (Glucotrol) 5 mg BIDBFRMEAL 11/30/16 16:30 12/04/16 08:56 5 MG Guaifenesin (Robitussin) 200 mg PRN Q4HRS PRN 12/03/16 11:00 12/03/16 11:32 200 MG Hydralazine HCl (Apresoline) 10 mg PRN Q4HRS PRN 11/30/16 13:00 Insulin Aspart (NovoLOG) 10 units TIDAC 11/30/16 11:30 12/04/16 08:59 10 UNITS Insulin Detemir (Levemir) 35 units QHS 12/01/16 21:00 12/03/16 21:11 35 UNITS Magnesium Sulfate/ Dextrose 100 ml @ 100 mls/hr 1X ONCE 12/02/16 10:30 12/02/16 11:29 DC 12/02/16 10:42 100 MLS/HR Morphine Sulfate 2 mg PRN Q2HR PRN 11/30/16 13:00 11/30/16 18:10 2 MG Nitroglycerin (Nitrostat) 0.4 mg PRN Q5MIN PRN 11/30/16 02:30 12/01/16 02:29 DC Ondansetron HCl (Zofran) 4 mg PRN Q6HRS PRN 11/30/16 13:00 Oxycodone/ Acetaminophen (Percocet 5/325) 1 tab PRN Q4HRS PRN 12/01/16 19:45 12/04/16 08:57 1 TAB Pantoprazole Sodium (Protonix) 40 mg DAILYAC 11/30/16 11:00 12/04/16 08:51 40 MG Polyethylene Glycol (miraLAX PACKET) 17 gm PRN DAILY PRN 12/02/16 17:45 12/04/16 09:03 17 GM Prednisone (Prednisone) 30 mg DAILY 11/30/16 17:15 12/04/16 08:52 30 MG Tramadol HCl (Ultram) 50 mg PRN Q6HRS PRN 11/30/16 13:00 12/04/16 06:02 50 MG Lab Laboratory Tests Test 12/03/16 11:37 12/03/16 16:41 12/03/16 21:01 12/04/16 04:30 Glucose (Fingerstick) 229 mg/dL (70-99) 247 mg/dL (70-99) 307 mg/dL (70-99) Sodium Level 134 mmol/L (136-145) Potassium Level 4.2 mmol/L (3.5-5.1) Chloride Level 99 mmol/L (98-107) Carbon Dioxide Level 28 mmol/L (21-32) Anion Gap 7 (6-14) Blood Urea Nitrogen 50 mg/dL (7-20) Creatinine 2.4 mg/dL (0.6-1.0) Estimated GFR (Cockcroft-Gault) 25.0 Glucose Level 288 mg/dL (70-99) Calcium Level 7.7 mg/dL (8.5-10.1) Phosphorus Level 4.3 mg/dL (2.6-4.7) Magnesium Level 1.8 mg/dL (1.8-2.4) Albumin 2.6 g/dL (3.4-5.0) RAFAEL VELIZ MD Dec 04, 2016 10:14
--- NOTE | 2016-12-04 10:17 | PDOC ---
PROGRESS NOTES Chief Complaint Chief Complaint acute shortness of breath acute on chronic hypoxic respiratory failure Congestive heart failure with ejection fraction 45%, acute on chronic combines COPD Former smoker Type 2 diabetes mellitus insulin-dependent [place] hypertension Morbid obesity Acute kidney injury with chronic kidney disease 3 Mild elevation of troponins History of Present Illness History of Present Illness Diuresis has improved symptoms, renal fxn is worse, renal navarro pending, Good urine output Creatinine is 2.6 with IV hydration BiPAP as needed cannot walk, hardly, right leg pain, uses walker, may need SNU Vitals Vitals Vital Signs Date Time Temp Pulse Resp B/P (MAP) Pulse Ox O2 Delivery O2 Flow Rate FiO2 12/04/16 09:59 Nasal Cannula 2.0 12/04/16 08:57 99 12/04/16 08:53 67 147/64 12/04/16 07:53 97.8 20 97.8 Physical Exam General: Alert, Cooperative, No acute distress, Other (drowsy, obese) Heart: Regular rate, Normal S1, Normal S2 Lungs: Clear Abdomen: Normal bowel sounds, Soft, Other (OBESE) Extremities: No clubbing, No cyanosis Skin: No rashes, No breakdown Labs LABS Laboratory Tests Test 12/03/16 11:37 12/03/16 16:41 12/03/16 21:01 12/04/16 04:30 Glucose (Fingerstick) 229 mg/dL (70-99) 247 mg/dL (70-99) 307 mg/dL (70-99) Sodium Level 134 mmol/L (136-145) Potassium Level 4.2 mmol/L (3.5-5.1) Chloride Level 99 mmol/L (98-107) Carbon Dioxide Level 28 mmol/L (21-32) Anion Gap 7 (6-14) Blood Urea Nitrogen 50 mg/dL (7-20) Creatinine 2.4 mg/dL (0.6-1.0) Estimated GFR (Cockcroft-Gault) 25.0 Glucose Level 288 mg/dL (70-99) Calcium Level 7.7 mg/dL (8.5-10.1) Phosphorus Level 4.3 mg/dL (2.6-4.7) Magnesium Level 1.8 mg/dL (1.8-2.4) Albumin 2.6 g/dL (3.4-5.0) Assessment and Plan Assessmemt and Plan Problems Medical Problems: (1) Acute respiratory failure with hypoxia Status: Acute (2) CHF (congestive heart failure) Status: Acute Problems: Comment Review of Relevant I have reviewed the following items jessee (where applicable) has been applied. Labs Laboratory Tests Test 12/02/16 10:23 12/02/16 10:50 12/02/16 11:39 12/02/16 17:17 Procalcitonin < 0.10 ng/mL (0.00-0.10) Complement C3 159 mg/dL (82-167) Complement C4 29 mg/dL (14-44) Urine Protein 56.7 mg/dL (Not Estab.) Urine Creatinine 93.6 mg/dL (Not Estab.) Urine Protein/Creatinine Ratio 606 mg/g creat (0-200) Glucose (Fingerstick) 110 mg/dL (70-99) 163 mg/dL (70-99) Test 12/02/16 20:57 12/03/16 04:40 12/03/16 08:49 12/03/16 11:37 Glucose (Fingerstick) 291 mg/dL (70-99) 215 mg/dL (70-99) 229 mg/dL (70-99) Sodium Level 134 mmol/L (136-145) Potassium Level 4.4 mmol/L (3.5-5.1) Chloride Level 97 mmol/L (98-107) Carbon Dioxide Level 27 mmol/L (21-32) Anion Gap 10 (6-14) Blood Urea Nitrogen 46 mg/dL (7-20) Creatinine 2.8 mg/dL (0.6-1.0) Estimated GFR (Cockcroft-Gault) 20.9 Glucose Level 268 mg/dL (70-99) Calcium Level 8.5 mg/dL (8.5-10.1) Phosphorus Level 4.8 mg/dL (2.6-4.7) Magnesium Level 1.8 mg/dL (1.8-2.4) Albumin 2.7 g/dL (3.4-5.0) Test 12/03/16 16:41 12/03/16 21:01 12/04/16 04:30 Glucose (Fingerstick) 247 mg/dL (70-99) 307 mg/dL (70-99) Sodium Level 134 mmol/L (136-145) Potassium Level 4.2 mmol/L (3.5-5.1) Chloride Level 99 mmol/L (98-107) Carbon Dioxide Level 28 mmol/L (21-32) Anion Gap 7 (6-14) Blood Urea Nitrogen 50 mg/dL (7-20) Creatinine 2.4 mg/dL (0.6-1.0) Estimated GFR (Cockcroft-Gault) 25.0 Glucose Level 288 mg/dL (70-99) Calcium Level 7.7 mg/dL (8.5-10.1) Phosphorus Level 4.3 mg/dL (2.6-4.7) Magnesium Level 1.8 mg/dL (1.8-2.4) Albumin 2.6 g/dL (3.4-5.0) Laboratory Tests Test 12/03/16 11:37 12/03/16 16:41 12/03/16 21:01 12/04/16 04:30 Glucose (Fingerstick) 229 mg/dL (70-99) 247 mg/dL (70-99) 307 mg/dL (70-99) Sodium Level 134 mmol/L (136-145) Potassium Level 4.2 mmol/L (3.5-5.1) Chloride Level 99 mmol/L (98-107) Carbon Dioxide Level 28 mmol/L (21-32) Anion Gap 7 (6-14) Blood Urea Nitrogen 50 mg/dL (7-20) Creatinine 2.4 mg/dL (0.6-1.0) Estimated GFR (Cockcroft-Gault) 25.0 Glucose Level 288 mg/dL (70-99) Calcium Level 7.7 mg/dL (8.5-10.1) Phosphorus Level 4.3 mg/dL (2.6-4.7) Magnesium Level 1.8 mg/dL (1.8-2.4) Albumin 2.6 g/dL (3.4-5.0) Medications Current Medications Furosemide (Lasix) 40 mg 1X ONCE IVP Last administered on 11/30/16 02:03; Start 11/30/16 at 01:45; Stop 11/30/16 at 01:46; Status DC Aspirin (Miguel Aspirin) 325 mg 1X ONCE PO Last administered on 11/30/16 02:04 ; Start 11/30/16 at 02:15; Stop 11/30/16 at 02:16; Status DC Ondansetron HCl (Zofran) 4 mg PRN Q8HRS PRN IV NAUSEA/VOMITING; Start 11/30/16 at 02:30; Stop 12/01/16 at 02:29; Status DC Fentanyl Citrate (Fentanyl 2ml Vial) 50 mcg PRN Q2HR PRN IV PAIN Last administered on 11/30/16 08:01; Start 11/30/16 at 02:30; Stop 12/01/16 at 02:29 ; Status DC Acetaminophen (Tylenol) 650 mg PRN Q4HRS PRN PO FEVER Last administered on 11/30 17:23; Start 11/30/16 at 02:30; Stop 12/01/16 at 02:29; Status DC Nitroglycerin (Nitrostat) 0.4 mg PRN Q5MIN PRN SL CHEST PAIN; Start 11/30/16 at 02:30; Stop 12/01/16 at 02:29; Status DC Albuterol/ Ipratropium (Duoneb) 3 ml RTQID NEB Last administered on 11/30/16 19:45; Start 11/30/16 at 08:00; Stop 12/01/16 at 07:59; Status DC Insulin Aspart (NovoLOG) 0-5 UNITS TIDWMEALS SQ Last administered on 12/04/16 09:02; Start 11/30/16 at 08:00 Dextrose (Dextrose 50%-Water Syringe) 12.5 gm PRN Q15MIN PRN IV SEE COMMENTS; Start 11/30/16 at 02:30 Furosemide (Lasix) 40 mg Q12HR IVP Last administered on 12/01/16 09:36; Start 11/30/16 at 09:00; Stop 12/01/16 at 14:46; Status DC Amlodipine Besylate (Norvasc) 10 mg DAILY PO Last administered on 12/04/16 08: 53; Start 11/30/16 at 11:00 Atorvastatin Calcium (Lipitor) 40 mg QHS PO Last administered on 12/03/16 21: 07; Start 11/30/16 at 21:00 Clonidine HCl (Catapres) 0.2 mg BID PO Last administered on 12/04/16 08:53; Start 11/30/16 at 11:00 Hydralazine HCl (Apresoline) 100 mg Q8HRS PO Last administered on 12/04/16 08: 51; Start 11/30/16 at 14:00 Acetaminophen/ Hydrocodone Bitart (Lortab 5/325) 1 tab PRN Q6HRS PRN PO SEVERE PAIN Last administered on 12/01/16 12:37; Start 11/30/16 at 10:45; Stop at 19:33; Status DC Insulin Aspart (NovoLOG) 10 units TIDAC SQ Last administered on 12/04/16 08:59 ; Start 11/30/16 at 11:30 Albuterol Sulfate (Ventolin Neb Soln) 2.5 mg PRN Q4HRS PRN NEB SOA Last administered on 12/01/16 23:32; Start 11/30/16 at 11:00 Carvedilol (Coreg) 25 mg BIDWMEALS PO Last administered on 12/04/16 08:53; Start 11/30/16 at 17:00 Glipizide (Glucotrol) 5 mg BIDBFRMEAL PO Last administered on 12/04/16 08:56; Start 11/30/16 at 16:30 Pantoprazole Sodium (Protonix) 40 mg DAILYAC PO Last administered on 12/04/16 08:51; Start 11/30/16 at 11:00 Insulin Detemir (Levemir) 30 units QHS SQ Last administered on 11/30/16 20:48 ; Start 11/30/16 at 21:00; Stop 12/01/16 at 12:35; Status DC Acetaminophen (Tylenol) 650 mg PRN Q6HRS PRN PO FEVER; Start 11/30/16 at 13:00 Ondansetron HCl (Zofran) 4 mg PRN Q6HRS PRN IV NAUSEA/VOMITING; Start 11/30/16 at 13:00 Morphine Sulfate 2 mg PRN Q2HR PRN IV PAIN Last administered on 11/30/16 18:10 ; Start 11/30/16 at 13:00 Tramadol HCl (Ultram) 50 mg PRN Q6HRS PRN PO PAIN Last administered on 06:02; Start 11/30/16 at 13:00 Hydralazine HCl (Apresoline) 10 mg PRN Q4HRS PRN IVP ELEVATED BP, SEE COMMENTS ; Start 11/30/16 at 13:00 Docusate Sodium (Colace) 100 mg PRN DAILY PRN PO CONSTIPATION Last administered on 12/01/16 05:33; Start 11/30/16 at 13:00 Albuterol/ Ipratropium (Duoneb) 3 ml RTQID NEB Last administered on 12/04/16 08:28; Start 11/30/16 at 16:00 Enoxaparin Sodium (Lovenox 40mg Syringe) 40 mg BID SQ Last administered on 12/04 08:54; Start 11/30/16 at 21:00 Prednisone (Prednisone) 30 mg DAILY PO Last administered on 12/04/16 08:52; Start 11/30/16 at 17:15 Doxycycline Hyclate (Vibra-Tab) 100 mg BID PO Last administered on 12/04/16 08 :48; Start 11/30/16 at 21:00 Insulin Detemir (Levemir) 35 units QHS SQ Last administered on 12/03/16 21:11 ; Start 12/01/16 at 21:00 Magnesium Sulfate/ Dextrose 50 ml @ 25 mls/hr PRN DAILY PRN IV for Mag < 1.7 on am labs; Start 12/01/16 at 13:00 Oxycodone/ Acetaminophen (Percocet 5/325) 1 tab PRN Q4HRS PRN PO PAIN Last administered on 12/04/16 08:57; Start 12/01/16 at 19:45 Furosemide (Lasix) 40 mg 1X ONCE IVP Last administered on 12/02/16 08:14; Start 12/02/16 at 07:30; Stop 12/02/16 at 07:34; Status DC Darbepoetin Manjit (Aranesp) 60 mcg WEEKLYHS SQ Last administered on 12/02/16 21 :48; Start 12/02/16 at 21:00 Magnesium Sulfate/ Dextrose 100 ml @ 100 mls/hr 1X ONCE IV Last administered on 12/02/16 10:42; Start 12/02/16 at 10:30; Stop 12/02/16 at 11:29; Status DC Docusate Sodium (Colace) 100 mg DAILY PO Last administered on 12/04/16 08:48; Start 12/02/16 at 18:00 Polyethylene Glycol (miraLAX PACKET) 17 gm PRN DAILY PRN PO CONSTIPATION Last administered on 12/04/16 09:03; Start 12/02/16 at 17:45 Guaifenesin (Robitussin) 200 mg PRN Q4HRS PRN PO COUGH Last administered on 11:32; Start 12/03/16 at 11:00 Active Scripts Active [place] 5-325 Tablet (Acetaminophen/Hydrocodone Bitart) 1 Each Tablet 1-2 Tab PO Q4-6HRS PRN Amlodipine Besylate 10 Mg Tablet 10 Mg PO DAILY Novolog Flexpen (Insulin Aspart) 100 Unit/1 Ml Insuln.pen 10 Units SQ TIDAC Hydralazine Hcl 50 Mg Tablet 100 Mg PO Q8HRS Furosemide 40 Mg Tablet 40 Mg PO DAILY Reported Wang Hummel (Insulin Glargine,Hum.rec.anlog) 300 Unit/1 Ml Insuln.pen 36 Unit SQ HS Atorvastatin Calcium 40 Mg Tablet 1 Tab PO DAILY Omeprazole 40 Mg Capsule.dr 1 Cap PO DAILY Ventolin Hfa Inhaler (Albuterol Sulfate) 18 Gm Hfa.aer.ad 2 Puff IH PRN Q4-6HRS Percocet 10-325 Mg Tablet (Oxycodone/Acetaminophen) 1 Each Tablet 1 Tab PO Q4- 6HRS Glipizide 10 Mg Tablet 1 Tab PO BIDAC Clonidine Hcl 0.2 Mg Tablet 1 Tab PO BID Coreg (Carvedilol) 25 Mg Tablet 1 Tab PO BID92 Vitals/I & O Vital Sign - Last 24 Hours 12/03/16 12/03/16 12/03/16 12/03/16 11:00 11:54 12:40 14:47 Temp 97.7 96.0 97.7 96.0 Pulse 67 73 Resp 22 18 B/P (MAP) 133/63 (86) 150/66 (94) Pulse Ox 96 96 91 O2 Delivery Room Air Room Air Room Air Room Air 12/03/16 12/03/16 12/03/16 12/03/16 15:23 15:24 16:41 17:06 Pulse 73 73 B/P (MAP) 150/66 150/66 Pulse Ox 91 O2 Delivery Room Air Room Air O2 Flow Rate 3.0 12/03/16 12/03/16 12/03/16 12/03/16 19:20 19:27 20:27 21:06 Temp 98.1 98.1 Pulse 72 Resp 18 18 B/P (MAP) 126/58 (80) Pulse Ox 94 92 94 O2 Delivery Nasal Cannula Nasal Cannula Room Air Nasal Cannula O2 Flow Rate 2.0 2.0 2.0 12/03/16 12/03/16 12/03/16 12/03/16 21:07 21:07 21:08 22:06 Pulse 72 72 Resp 18 18 B/P (MAP) 126/58 126/58 Pulse Ox 94 O2 Delivery Nasal Cannula O2 Flow Rate 2.0 12/03/16 12/04/16 12/04/16 12/04/16 23:00 02:01 02:51 03:01 Temp 99.0 97.7 99.0 97.7 Pulse 70 64 Resp 18 18 18 B/P (MAP) 121/56 (77) 133/64 (87) Pulse Ox 94 98 O2 Delivery Nasal Cannula Nasal Cannula Nasal Cannula O2 Flow Rate 2.0 2.0 2.0 12/04/16 12/04/16 12/04/16 12/04/16 05:57 06:02 07:02 07:53 Temp 97.8 97.8 Pulse 64 67 Resp 18 20 B/P (MAP) 152/65 125/56 (79) Pulse Ox 97 95 O2 Delivery Nasal Cannula Nasal Cannula Room Air O2 Flow Rate 3.0 2.0 12/04/16 12/04/16 12/04/16 12/04/16 08:00 08:32 08:51 08:53 Pulse 67 67 B/P (MAP) 147/64 147/64 Pulse Ox 99 O2 Delivery Nasal Cannula Nasal Cannula O2 Flow Rate 2.0 2.0 12/04/16 12/04/16 12/04/16 12/04/16 08:53 08:53 08:57 09:59 Pulse 67 67 B/P (MAP) 147/64 147/64 Pulse Ox 99 O2 Delivery Nasal Cannula Nasal Cannula O2 Flow Rate 2.0 2.0 Intake and Output 12/03/16 12/03/16 12/04/16 15:00 23:00 07:00 Intake Total 360 ml 700 ml Output Total 900 ml 500 ml Balance -540 ml 200 ml REJI HOLLIDAY MD Dec 04, 2016 10:17
[2016-12-04 11:00] VITALS: BP 137/60
[2016-12-04] MEDS ORDERED: DOXY100T PO (11:55)
[2016-12-04] MEDS ORDERED: OXYC-328 PO (11:55)
--- NOTE | 2016-12-04 12:25 | RAD ---
Indication chronic right ankle pain. AP oblique and lateral views of the right ankle were obtained. Comparison is made to a prior examination 10/19/2016. Postoperative changes are noted. Plate and screws are noted associated with the distal fibula. 2 screws extend into the distal tibia. Again there is slight lucency surrounding these screws that extend into the tibia. Chronic loosening is not excluded. An acute finding is not apparent. There has not a significant change in the appearance of the ankle relative to the previous plain film exam. IMPRESSION: No acute finding
--- NOTE | 2016-12-04 12:26 | RAD ---
Indication pain right knee. An AP standing view incorporating both knees was obtained. There is slight medial joint space compartment narrowing left greater than right compatible with degenerative change. Small osteophytes are seen medially bilaterally. Bony mineralization appears normal. Acute finding involving either knee is not seen. IMPRESSION: Degenerative change involving both knees left slightly greater than right
--- NOTE | 2016-12-04 12:28 | RAD ---
Indication chronic low back pain. No history of recent injury. AP and lateral views of the lumbar spine were obtained as well as a coned view targeted to the lumbosacral junction. Vertebral height is well maintained. Significant disc space narrowing is not seen at any level. There are small osteophytes seen at multiple levels. Some facet degenerative change is noted predominantly at L5-S1. IMPRESSION: Mild degenerative change. No acute finding seen
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
[2016-12-05 12:14] LABS: MYELOPEROXIDASE ABY 28.7 U/mL (0.0-9.0); PROTEINASE 3 ANTIBODY <3.5 U/mL (0.0-3.5)
--- NOTE | 2016-12-05 14:20 | PDOC3 ---
Discharge Summary Visit Information Date of Admission: Nov 30, 2016 Date of Discharge: Dec 04, 2016 Admitting Diagnosis: hypoxia Final Diagnosis acute on chronic hypoxic respiratory failure Congestive heart failure with ejection fraction 45%, acute on chronic combines COPD Former smoker Type 2 diabetes mellitus insulin-dependent [place] hypertension Morbid obesity Acute kidney injury with chronic kidney disease 3 Mild elevation of troponins Vitals Problems Medical Problems: (1) Acute respiratory failure with hypoxia Status: Acute (2) CHF (congestive heart failure) Status: Acute Brief Hospital Course Allergies Allergies Coded Allergies Type Severity Reaction Last Updated Verified No Known Drug Allergies 06/10/14 No Vital Signs Vital Signs Date Time Temp Pulse Resp B/P (MAP) Pulse Ox O2 Delivery O2 Flow Rate FiO2 12/04/16 11:00 98.6 88 137/60 (85) 98 Room Air 2.0 98.6 12/04/16 07:53 20 Lab Results Laboratory Tests Test 12/03/16 16:41 12/03/16 21:01 12/04/16 04:30 12/04/16 07:21 Glucose (Fingerstick) 247 mg/dL (70-99) 307 mg/dL (70-99) 215 mg/dL (70-99) Sodium Level 134 mmol/L (136-145) Potassium Level 4.2 mmol/L (3.5-5.1) Chloride Level 99 mmol/L (98-107) Carbon Dioxide Level 28 mmol/L (21-32) Anion Gap 7 (6-14) Blood Urea Nitrogen 50 mg/dL (7-20) Creatinine 2.4 mg/dL (0.6-1.0) Estimated GFR (Cockcroft-Gault) 25.0 Glucose Level 288 mg/dL (70-99) Calcium Level 7.7 mg/dL (8.5-10.1) Phosphorus Level 4.3 mg/dL (2.6-4.7) Magnesium Level 1.8 mg/dL (1.8-2.4) Albumin 2.6 g/dL (3.4-5.0) Test 12/04/16 11:28 Glucose (Fingerstick) 182 mg/dL (70-99) Brief Hospital Course Ms. Platt is a 61 old with a history of diastolic CHF, pulmonary HTN, and COPD, admit w/ acute shortness of breath, worse over days w/ LE edema worse Diuresis has improved symptoms, renal fxn is worsened, but stable, need to maintain for CHF Good urine output BiPAP as needed cannot walk, hardly, right leg pain, uses walker, SNU considered, she DC home home health Discharge Information Condition at Discharge: Improved Follow Up: Weeks Disposition/Orders: D/C to Home w/ HH Scheduled Albuterol Sulfate (Ventolin Hfa Inhaler), 2 PUFF IH PRN Q4-6HRS, (Reported) Amlodipine Besylate (Amlodipine Besylate), 10 MG PO DAILY Atorvastatin Calcium (Atorvastatin Calcium), 1 TAB PO DAILY, (Reported) Carvedilol (Coreg), 1 TAB PO BID92, (Reported) Clonidine Hcl (Clonidine Hcl), 1 TAB PO BID, (Reported) Doxycycline Hyclate (Doxycycline Hyclate), 100 MG PO BID Furosemide (Furosemide), 40 MG PO DAILY Glipizide (Glipizide), 1 TAB PO BIDAC, (Reported) Hydralazine Hcl (Hydralazine Hcl), 100 MG PO Q8HRS Insulin Aspart (Novolog Flexpen), 10 UNITS SQ TIDAC Insulin Glargine,Hum.rec.anlog ([place] Solostar), 36 UNIT SQ HS, (Reported) Omeprazole (Omeprazole), 1 CAP PO DAILY, (Reported) Oxycodone/Apap 10-325 (Percocet 10-325 Mg Tablet), 1 TAB PO Q4-6HRS Discontinued Medications Hydrocodone/Apap 5-325 ([place] 5-325 Tablet), 1-2 TAB PO Q4-6HRS PRN for SEVERE PAIN Patient Instructions Patient Instructions time > 30min REJI HOLLIDAY MD Dec 05, 2016 14:20
[2016-12-06 09:10] LABS: GLOMERULAR BASEMENT ABDY 3 units (0-20)
[2016-12-06 16:14] LABS: C ANCA <1:20 titer (Neg:<1:20)
== END 2016-12-04 15:40 | disposition home health service (06) | DRG 280 ==
LOC: ER 00:33 → 1 WEST ICU 01:56 → 2 SOUTH 12-01 18:24
PROVIDERS: ADMIT Internal Medicine; ATTEND Internal Medicine
PROC: 5A09357 Assistance with Respiratory Ventilation, Less than 24 Consecutive Hours, Continuous Positive Airway Pressure (ICD-10-PCS; principal; 2016-11-30)
DX: I21.4 Non-ST elevation (NSTEMI) myocardial infarction (principal); N17.0 Acute kidney failure with tubular necrosis; I50.33 Acute on chronic diastolic (congestive) heart failure; J96.21 Acute and chronic respiratory failure with hypoxia; I13.0 Hypertensive heart and chronic kidney disease with heart failure and stage 1 through stage 4 chronic kidney disease, or unspecified chronic kidney disease; E44.1 Mild protein-calorie malnutrition; Z68.43 Body mass index [BMI] 50.0-59.9, adult; J44.1 Chronic obstructive pulmonary disease with (acute) exacerbation; D72.829 Elevated white blood cell count, unspecified; E11.22 Type 2 diabetes mellitus with diabetic chronic kidney disease; E66.01 Morbid (severe) obesity due to excess calories; E78.5 Hyperlipidemia, unspecified; F17.210 Nicotine dependence, cigarettes, uncomplicated; F41.9 Anxiety disorder, unspecified; I27.2 Other secondary pulmonary hypertension; I70.1 Atherosclerosis of renal artery; N18.3 Chronic kidney disease, stage 3 (moderate); T50.1X5A Adverse effect of loop [high-ceiling] diuretics, initial encounter; F14.10 Cocaine abuse, uncomplicated; G89.29 Other chronic pain; M54.5 Low back pain; M19.90 Unspecified osteoarthritis, unspecified site; R34 Anuria and oliguria; R80.9 Proteinuria, unspecified; E87.70 Fluid overload, unspecified; D64.9 Anemia, unspecified; M51.36 Other intervertebral disc degeneration, lumbar region; Z79.4 Long term (current) use of insulin; Z82.49 Family history of ischemic heart disease and other diseases of the circulatory system; Z80.9 Family history of malignant neoplasm, unspecified; Z99.81 Dependence on supplemental oxygen; Z91.19 Patient's noncompliance with other medical treatment and regimen
CPT/HCPCS: 36415; 36600; 51702; 71010; 71020; 72100; 73565; 73610; 78708; 80048; 80053; 80069; 81001; 82570; 82805; 82962; 83520; 83735; 83880; 84145; 84156; 84484; 85007; 85027; 85651; 86021; 86160; 87641; 93005; 93308; 94250; 94640; 94660; 94760; 96374; 96375; A9562; J0881; J1650; J1815; J1940; J2270; J3010; J3475; J7512; J7613; J7620; 83516; 83876; 97116; 99285-25; A6539

== ENCOUNTER 2016-12-13 01:54 | Inpatient (IN) | payer OTHER ==
[~2016-12-13] VITALS: Ht 166.4 cm; Wt 134.7 kg
[2016-12-13] VITALS (20 sets, daily range): BP systolic 95–194; BP diastolic 45–96
[2016-12-13] MEDS: NITROGLYCERIN SUBLINGUAL 0.4 MG BOTTLE OF 25. SL PRN ×4 (02:11→02:23)
[2016-12-13 02:17] LABS: BASO # 0.1 x10^3/uL (0.0-0.2); BASO % 1 % (0-3); EOS % 3 % (0-3); HEMATOCRIT 30.8 % (36.0-47.0); HEMOGLOBIN 9.5 g/dL (12.0-15.5); LYMPH # 1.7 x10^3/uL (1.0-4.8); LYMPH % 15 % (24-48); MEAN CORPUSCULAR HEMOGLOBIN 26 pg (25-35); MEAN CORPUSCULAR HGB CONC 31 g/dL (31-37); MEAN CORPUSCULAR VOLUME 85 fL (79-100); MONO % 8 % (0-9); NEUT % 73 % (31-73); PLATELET COUNT 319 x10^3/uL (140-400); RED CELL DISTRIBUTION WIDTH 17.5 % (11.5-14.5); WHITE BLOOD COUNT 11.7 x10^3/uL (4.0-11.0)
[2016-12-13 02:30] LABS: CALCIUM 9.1 mg/dL (8.5-10.1); CREATININE 1.4 mg/dL (0.6-1.0); GFR 46.6; POTASSIUM 3.8 mmol/L (3.5-5.1)
[2016-12-13 02:35] LABS: ALBUMIN 2.9 g/dL (3.4-5.0); ALBUMIN/GLOBULIN RATIO 0.6 (1.0-1.7); TOTAL BILIRUBIN 0.2 mg/dL (0.2-1.0); TOTAL PROTEIN 7.8 g/dL (6.4-8.2)
[2016-12-13] MEDS ORDERED: ENALAPRILAT 1.25 MG/ML VIAL. IV ONE (02:45)
[2016-12-13] MEDS ORDERED: ASPIRIN CHEWABLE 81 MG TABLET. PO ONE (03:00)
[2016-12-13] MEDS ORDERED: NITROGLYCERIN OINT 1 GM PACKET. TP ONE (03:00)
--- NOTE | 2016-12-13 03:19 | PHYS DOC ---
Past Medical History Past Medical History: CHF, COPD, Diabetes-Type II, Hypertension Additional Past Medical Histor: insomnia Past Surgical History: Tonsillectomy, Tubal ligation, Other Additional Past Surgical Histo: R ARM FX, R LEG FX Additional Information: PATIENT REPORTS SHE QUIT SMOKING Alcohol Use: None Drug Use: None Adult General Chief Complaint Chief Complaint: SHORTNESS OF BREATH HPI HPI Patient is a 61 year old female who presents with complaints of shortness of breath and hypertension, denies chest pain. Patient also has swelling of the lower extremities. History, ROS, physical exam limited secondary to acuity. Additional information obtained from a fire department. Review of Systems Review of Systems Constitutional: Denies fever or chills [] HENT: Denies nasal congestion or sore throat [] Respiratory: Shortness of breath Cardiovascular: No chest pain GI: Denies abdominal pain, nausea, vomiting, bloody stools or diarrhea [] Musculoskeletal: Swelling of bilateral lower extremities Integument: Denies rash or skin lesions [] Neurologic: Denies headache, focal weakness or sensory changes [] ROS limited secondary to acuity Current Medications Current Medications Current Medications Medications (Trade) Dose Ordered Sig/Rob Start Time Stop Time Status Last Admin Dose Admin Aspirin (Children'S Aspirin) 324 mg 1X ONCE 12/13/16 03:00 12/13/16 03:01 DC 12/13/16 03:05 324 MG Enalaprilat (Vasotec) 1.25 mg 1X ONCE 12/13/16 02:45 12/13/16 02:46 DC 12/13/16 02:37 1.25 MG Furosemide (Lasix) 40 mg 1X ONCE 12/13/16 03:30 12/13/16 03:31 DC Nitroglycerin (Nitro-Bid Oint) 2 inch 1X ONCE 12/13/16 03:00 12/13/16 03:01 DC 12/13/16 03:09 2 INCH Nitroglycerin (Nitrostat) 0.4 mg PRN Q5MIN PRN 12/13/16 02:15 12/14/16 02:14 12/13/16 02:23 0.4 MG Ondansetron HCl (Zofran) 4 mg PRN Q8HRS PRN 12/13/16 03:30 12/14/16 03:29 Allergies Allergies Allergies Coded Allergies Type Severity Reaction Last Updated Verified No Known Drug Allergies 06/10/14 No Physical Exam Physical Exam Constitutional: Well developed, well nourished, moderate distress, ill-appearing , arrives on CPAP. [] HENT: Normocephalic, atraumatic, Eyes: EOMI, conjunctiva normal, no discharge. [] Neck: Normal range of motion, no tenderness, supple, no stridor. No LAD no meningeal signs Cardiovascular:Heart rate regular rhythm, no murmur, normal perfusion. Lungs & Thorax: Rales at the bilateral lower lungs, tachypnea, mild accessory muscle use Abdomen: Bowel sounds normal, soft, no tenderness, no masses, no pulsatile masses. [] Skin: Warm, dry, no erythema, no rash. [] Back: No tenderness, no CVA tenderness. [] Extremities: No tenderness, no signs of DVT. ROM intact, Bilateral lower extremity edema Neurologic: Alert and oriented X 3, no focal deficits noted. [] Psychologic: Anxious Current Patient Data Vital Signs Vital Signs Date Time Temp Pulse Resp B/P (MAP) Pulse Ox O2 Delivery O2 Flow Rate FiO2 12/13/16 03:09 87 190/84 12/13/16 03:00 96 BiPAP/CPAP 12/13/16 01:54 97.8 28 10.0 97.8 Lab Values Laboratory Tests Test 12/13/16 02:01 White Blood Count 11.7 x10^3/uL (4.0-11.0) H Red Blood Count 3.60 x10^6/uL (3.50-5.40) Hemoglobin 9.5 g/dL (12.0-15.5) L Hematocrit 30.8 % (36.0-47.0) L Mean Corpuscular Volume 85 fL (79-100) Mean Corpuscular Hemoglobin 26 pg (25-35) Mean Corpuscular Hemoglobin Concent 31 g/dL (31-37) Red Cell Distribution Width 17.5 % (11.5-14.5) H Platelet Count 319 x10^3/uL (140-400) Neutrophils (%) (Auto) 73 % (31-73) Lymphocytes (%) (Auto) 15 % (24-48) L Monocytes (%) (Auto) 8 % (0-9) Eosinophils (%) (Auto) 3 % (0-3) Basophils (%) (Auto) 1 % (0-3) Neutrophils # (Auto) 8.5 x10^3uL (1.8-7.7) H Lymphocytes # (Auto) 1.7 x10^3/uL (1.0-4.8) Monocytes # (Auto) 1.0 x10^3/uL (0.0-1.1) Eosinophils # (Auto) 0.4 x10^3/uL (0.0-0.7) Basophils # (Auto) 0.1 x10^3/uL (0.0-0.2) Sodium Level 143 mmol/L (136-145) Potassium Level 3.8 mmol/L (3.5-5.1) Chloride Level 105 mmol/L (98-107) Carbon Dioxide Level 29 mmol/L (21-32) Anion Gap 9 (6-14) Blood Urea Nitrogen 11 mg/dL (7-20) Creatinine 1.4 mg/dL (0.6-1.0) H Estimated GFR (Cockcroft-Gault) 46.6 BUN/Creatinine Ratio 8 (6-20) Glucose Level 221 mg/dL (70-99) H Calcium Level 9.1 mg/dL (8.5-10.1) Total Bilirubin 0.2 mg/dL (0.2-1.0) Aspartate Amino Transferase (AST) 14 U/L (15-37) L Alanine Aminotransferase (ALT) 11 U/L (14-59) L Alkaline Phosphatase 165 U/L (46-116) H Troponin I Quantitative 0.164 ng/mL (0.000-0.055) OW-Phr-G-Type Natriuretic Peptide 7653 pg/mL (0-124) H Total Protein 7.8 g/dL (6.4-8.2) Albumin 2.9 g/dL (3.4-5.0) L Albumin/Globulin Ratio 0.6 (1.0-1.7) L Laboratory Tests 12/13/16 02:01 Laboratory Tests 12/13/16 02:01 EKG EKG 95, SR, no stemi, EP interpretation at 0205[] Radiology/Procedures Radiology/Procedures cardiomegaly and pulmonary edema[] Course & Med Decision Making Course & Med Decision Making Pertinent Labs and Imaging studies reviewed. (See chart for details) 0319 patient improving, tachypnea has decreased, hypertension decreasing. Critical care time was 35 minutes exclusive of procedures or teaching. Pt monitored for impeding deterioration, elevated blood pressures, ventilation, elevated troponins. Patient discussed with admitting team, nursing, EMS. [] Dragon Disclaimer Dragon Disclaimer This electronic medical record was generated, in whole or in part, using a voice recognition dictation system. Departure Departure Impression: Primary Impression: Congestive heart failure (CHF) Additional Impressions: Hypertensive emergency Elevated troponin Disposition: ADMITTED INPATIENT Admitting Physician: Soumya Damian Condition: GUARDED Referrals: NO PCP (PCP) Problem Qualifiers Ty REAL MD Dec 13, 2016 03:19
[2016-12-13] MEDS ORDERED: FUROSEMIDE 20 MG/2 ML VIAL. IVP ONE (03:30)
[2016-12-13] MEDS ORDERED: ONDANSETRON PF 4 MG/2 ML VIAL. IV PRN (03:30)
[2016-12-13] MEDS ORDERED: ACETAMINOPHEN 325 MG TABLET. PO ONE (03:45)
[2016-12-13] MEDS ORDERED: LABETALOL 20 MG/4 ML DISP.SYRIN. IVP PRN (05:45)
[2016-12-13] MEDS ORDERED: DEXTROSE 50% 25 GM / 50ML DISP.SYRIN. IV PRN ×3 (05:45→08:30)
[2016-12-13] MEDS ORDERED: oxyCODONE/APAP 10/325 1 TAB TABLET PO PRN (05:45)
--- NOTE | 2016-12-13 06:22 | EKG ---
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
--- NOTE | 2016-12-13 07:23 | RAD ---
Portable chest, 12/13/2016: History: Shortness of breath, congestive heart failure Comparison is made to a study from 12/03/2016. The heart is enlarged. The pulmonary vascularity appears congested with loss of vascular margination. There are mild hazy basilar infiltrates. No definite pleural fluid is seen. IMPRESSION: Mild congestive heart failure with mild pulmonary edema.
[2016-12-13] MEDS: INSULIN ASPART 300 UNITS/3 ML INSULN.PEN SQ SCH ×6 (08:00→18:38)
[2016-12-13] MEDS ORDERED: NON FORMULARY ITEM (Albuterol Sulfate (Ventolin Hfa Inhaler) 2 PUFF) IH SCH (08:30)
--- NOTE | 2016-12-13 08:31 | PDOC1 ---
History and Physical Date of Admission Date of Admission DATE: 12/13/16 TIME: 08:22 Identification/Chief Complaint Chief Complaint shortness of breath Problems: Source Source: Chart review, Patient History of Present Illness History of Present Illness MR. Redd is a 61 year old female who presented to the ER overnight with acute shortness of breath She has a return of her prior symptom of shortness of breath w/ marked hypertension. She complains of swelling of the lower extremities, remarks of pain in her feet on exam she is on Bipap during my exam, would answer short questions, but was lethargic and not talkative Past Medical History Cardiovascular: CHF, HTN Pulmonary: COPD, Other GI: Other Heme/Onc: Anemia NOS Psych: Anxiety Musculoskeletal: Osteoarthritis Endocrine: Diabetes Past Surgical History Past Surgical History: Tonsillectomy Family History Family History: Cancer, Hypertension Social History Smoke: No ALCOHOL: none Drugs: None, Other Current Problem List Problem List Problems Medical Problems: (1) Congestive heart failure (CHF) Status: Acute (2) Elevated troponin Status: Acute (3) Hypertensive emergency Status: Acute Problems: Current Medications Current Medications Current Medications Nitroglycerin (Nitrostat) 0.4 mg PRN Q5MIN PRN SL CP RATING > 1/10 Last administered on 12/13/16 02:23; Start 12/13/16 at 02:15; Stop 12/14/16 at 02:14 Enalaprilat (Vasotec) 1.25 mg 1X ONCE IV Last administered on 12/13/16 02:37 ; Start 12/13/16 at 02:45; Stop 12/13/16 at 02:46; Status DC Nitroglycerin (Nitro-Bid Oint) 2 inch 1X ONCE TP Last administered on 03:09; Start 12/13/16 at 03:00; Stop 12/13/16 at 03:01; Status DC Aspirin (Children'S Aspirin) 324 mg 1X ONCE PO Last administered on 12/13/16 03:05; Start 12/13/16 at 03:00; Stop 12/13/16 at 03:01; Status DC Furosemide (Lasix) 40 mg 1X ONCE IVP Last administered on 12/13/16 03:59; Start 12/13/16 at 03:30; Stop 12/13/16 at 03:31; Status DC Ondansetron HCl (Zofran) 4 mg PRN Q8HRS PRN IV NAUSEA/VOMITING; Start 12/13/16 at 03:30; Stop 12/14/16 at 03:29 Acetaminophen (Tylenol) 650 mg 1X ONCE PO Last administered on 12/13/16t 03:59 ; Start 12/13/16 at 03:45; Stop 12/13/16 at 03:46; Status DC Labetalol HCl (Normodyne) 20 mg PRN Q6HRS PRN IVP HYPERTENSION, SEE COMMENTS; Start 12/13/16 at 05:45 Insulin Detemir (Levemir) 36 units QHS SQ ; Start 12/13/16 at 21:00 Insulin Aspart (NovoLOG) 0-7 UNITS TIDWMEALS SQ ; Start 12/13/16 at 08:00 Dextrose (Dextrose 50%-Water Syringe) 12.5 gm PRN Q15MIN PRN IV SEE COMMENTS; Start 12/13/16 at 05:45 Oxycodone/ Acetaminophen (Percocet 10/325) 1 tab PRN Q4HRS PRN PO PAIN; Start 12/13/16 at 05:45 Active Scripts Active Doxycycline Hyclate 100 Mg Tablet 100 Mg PO BID Percocet 10-325 Mg Tablet (Oxycodone/Acetaminophen) 1 Each Tablet 1 Tab PO Q4- 6HRS Amlodipine Besylate 10 Mg Tablet 10 Mg PO DAILY Novolog Flexpen (Insulin Aspart) 100 Unit/1 Ml Insuln.pen 10 Units SQ TIDAC Hydralazine Hcl 50 Mg Tablet 100 Mg PO Q8HRS Furosemide 40 Mg Tablet 40 Mg PO DAILY Reported Wang Hummel (Insulin Glargine,Hum.rec.anlog) 300 Unit/1 Ml Insuln.pen 36 Unit SQ HS Atorvastatin Calcium 40 Mg Tablet 1 Tab PO DAILY Omeprazole 40 Mg Capsule.dr 1 Cap PO DAILY Ventolin Hfa Inhaler (Albuterol Sulfate) 18 Gm Hfa.aer.ad 2 Puff IH PRN Q4-6HRS Glipizide 10 Mg Tablet 1 Tab PO BIDAC Clonidine Hcl 0.2 Mg Tablet 1 Tab PO BID Coreg (Carvedilol) 25 Mg Tablet 1 Tab PO BID92 Allergies Allergies: Coded Allergies: No Known Drug Allergies (Unverified , 06/10/14) ROS Review of System not able to speak well enough to complete, she wanted to return to sleep on Bipap Physical Exam General: Cooperative, moderate distress, Other (lethargic) HEENT: Atraumatic, EOMI, Mucous membr. moist/pink Lungs: Clear to auscultation Heart: S1S2, no murmurs Abdomen: Normal bowel sounds, Soft Rectal Exam: not examined Extremities: No clubbing, Other (+2 LE edema) Skin: No rashes Neuro: Sensation intact Psych/Mental Status: Other (lethargic) Vitals Vitals Vital Signs Date Time Temp Pulse Resp B/P (MAP) Pulse Ox O2 Delivery O2 Flow Rate FiO2 12/13/16 06:00 84 20 154/59 (90) 97 BiPAP/CPAP 12/13/16 06:00 35.0 12/13/16 04:15 98.6 98.6 Labs Labs Laboratory Tests Test 12/13/16 02:01 White Blood Count 11.7 x10^3/uL (4.0-11.0) Red Blood Count 3.60 x10^6/uL (3.50-5.40) Hemoglobin 9.5 g/dL (12.0-15.5) Hematocrit 30.8 % (36.0-47.0) Mean Corpuscular Volume 85 fL (79-100) Mean Corpuscular Hemoglobin 26 pg (25-35) Mean Corpuscular Hemoglobin Concent 31 g/dL (31-37) Red Cell Distribution Width 17.5 % (11.5-14.5) Platelet Count 319 x10^3/uL (140-400) Neutrophils (%) (Auto) 73 % (31-73) Lymphocytes (%) (Auto) 15 % (24-48) Monocytes (%) (Auto) 8 % (0-9) Eosinophils (%) (Auto) 3 % (0-3) Basophils (%) (Auto) 1 % (0-3) Neutrophils # (Auto) 8.5 x10^3uL (1.8-7.7) Lymphocytes # (Auto) 1.7 x10^3/uL (1.0-4.8) Monocytes # (Auto) 1.0 x10^3/uL (0.0-1.1) Eosinophils # (Auto) 0.4 x10^3/uL (0.0-0.7) Basophils # (Auto) 0.1 x10^3/uL (0.0-0.2) Sodium Level 143 mmol/L (136-145) Potassium Level 3.8 mmol/L (3.5-5.1) Chloride Level 105 mmol/L (98-107) Carbon Dioxide Level 29 mmol/L (21-32) Anion Gap 9 (6-14) Blood Urea Nitrogen 11 mg/dL (7-20) Creatinine 1.4 mg/dL (0.6-1.0) Estimated GFR (Cockcroft-Gault) 46.6 BUN/Creatinine Ratio 8 (6-20) Glucose Level 221 mg/dL (70-99) Calcium Level 9.1 mg/dL (8.5-10.1) Total Bilirubin 0.2 mg/dL (0.2-1.0) Aspartate Amino Transf (AST/SGOT) 14 U/L (15-37) Alanine Aminotransferase (ALT/SGPT) 11 U/L (14-59) Alkaline Phosphatase 165 U/L (46-116) Troponin I Quantitative 0.164 ng/mL (0.000-0.055) HZ-Sdb-F-Type Natriuretic Peptide 7653 pg/mL (0-124) Total Protein 7.8 g/dL (6.4-8.2) Albumin 2.9 g/dL (3.4-5.0) Albumin/Globulin Ratio 0.6 (1.0-1.7) Laboratory Tests Test 12/13/16 02:01 White Blood Count 11.7 x10^3/uL (4.0-11.0) Red Blood Count 3.60 x10^6/uL (3.50-5.40) Hemoglobin 9.5 g/dL (12.0-15.5) Hematocrit 30.8 % (36.0-47.0) Mean Corpuscular Volume 85 fL (79-100) Mean Corpuscular Hemoglobin 26 pg (25-35) Mean Corpuscular Hemoglobin Concent 31 g/dL (31-37) Red Cell Distribution Width 17.5 % (11.5-14.5) Platelet Count 319 x10^3/uL (140-400) Neutrophils (%) (Auto) 73 % (31-73) Lymphocytes (%) (Auto) 15 % (24-48) Monocytes (%) (Auto) 8 % (0-9) Eosinophils (%) (Auto) 3 % (0-3) Basophils (%) (Auto) 1 % (0-3) Neutrophils # (Auto) 8.5 x10^3uL (1.8-7.7) Lymphocytes # (Auto) 1.7 x10^3/uL (1.0-4.8) Monocytes # (Auto) 1.0 x10^3/uL (0.0-1.1) Eosinophils # (Auto) 0.4 x10^3/uL (0.0-0.7) Basophils # (Auto) 0.1 x10^3/uL (0.0-0.2) Sodium Level 143 mmol/L (136-145) Potassium Level 3.8 mmol/L (3.5-5.1) Chloride Level 105 mmol/L (98-107) Carbon Dioxide Level 29 mmol/L (21-32) Anion Gap 9 (6-14) Blood Urea Nitrogen 11 mg/dL (7-20) Creatinine 1.4 mg/dL (0.6-1.0) Estimated GFR (Cockcroft-Gault) 46.6 BUN/Creatinine Ratio 8 (6-20) Glucose Level 221 mg/dL (70-99) Calcium Level 9.1 mg/dL (8.5-10.1) Total Bilirubin 0.2 mg/dL (0.2-1.0) Aspartate Amino Transf (AST/SGOT) 14 U/L (15-37) Alanine Aminotransferase (ALT/SGPT) 11 U/L (14-59) Alkaline Phosphatase 165 U/L (46-116) Troponin I Quantitative 0.164 ng/mL (0.000-0.055) BH-Bbr-B-Type Natriuretic Peptide 7653 pg/mL (0-124) Total Protein 7.8 g/dL (6.4-8.2) Albumin 2.9 g/dL (3.4-5.0) Albumin/Globulin Ratio 0.6 (1.0-1.7) VTE Prophylaxis Ordered VTE Prophylaxis Devices: Yes VTE Pharmacological Prophylaxi: Yes Assessment/Plan Assessment/Plan Acute on chronic diastolic CHF acute shortness of breath, possible cor pulmonale from CHF accelerated htn on admit respiratory failure requiring BiPAP, no hypoxia documented anemia of CKD, CKD 3 moderate malnutrition, Serum albumin 2.9, in morbid obesity, BMI 49 DM2, moderate poor control, minimally possible mild metabolic encephalopathy, also likely tired from the resp failure, overnight admit and no sleep REJI HOLLIDAY MD Dec 13, 2016 08:31
[2016-12-13] MEDS: amLODIPine BESYLATE 10 MG TABLET PO SCH (08:59)
[2016-12-13] MEDS ORDERED: FUROSEMIDE 40 MG TABLET. PO SCH (09:00)
[2016-12-13] MEDS: PANTOPRAZOLE 40 MG TABLET.DR. PO SCH (09:00)
[2016-12-13] MEDS: glipiZIDE 5 MG TABLET PO SCH ×2 (09:00→18:33)
[2016-12-13] MEDS: CARVEDILOL 12.5 MG TABLET. PO SCH ×2 (09:00→18:33)
[2016-12-13] MEDS: cloNIDine HCL 0.2 MG TABLET PO SCH ×2 (09:01→21:00)
[2016-12-13] MEDS: ATORVASTATIN CALCIUM 40 MG TABLET. PO SCH (09:01)
--- NOTE | 2016-12-13 11:47 | PDOC2 ---
CARDIAC CONSULT DATE OF CONSULT Date of Consult DATE: 12/13/16 TIME: 11:45 REASON FOR CONSULT Reason for Consult: CHF, elevated troponin, HTN emergency REFERRING PHYSICIAN Referring Physician: Charles SOURCE Source: Chart review, Patient HISTORY OF PRESENT ILLNESS HISTORY OF PRESENT ILLNESS This is a pleasant 61 yo fmeale admitted for complains of SOA. Pt is limited historian due to her drowsiness and needing of bipap. Bipap was taken off and pt remains to be drowsy. Upon admission her BP was uncontrolled in which accdg to her her SBP has been running in the 180s. Denies any chest pain but reported SOA and [place]. She does not weigh herself but reports that she has been taking her home medications. She may have PRAVEEN but she does not use any CPAP device. Denies any chest pain, palpitations, dizziness or passing out. PAST MEDICAL HISTORY Cardiovascular: CAD (nonobstructive with diffuse disease), CHF (diastolic), HTN , Hyperlipidemia Pulmonary: COPD, Other (chronic respiratory failure; pulmonary HTN) GI: GERD Heme/Onc: Anemia NOS Musculoskeletal: Osteoarthritis, Other (right arm fracture) Rheumatologic: No pertinent hx Infectious disease: No pertinent hx ENT: No pertinent hx Renal/: Chronic renal insuff (CKD3) Endocrine: Diabetes (2) PAST SURGICAL HISTORY Past Surgical History: Tubal Ligation, Tonsillectomy FAMILY HISTORY Family History: Hypertension SOCIAL HISTORY Smoke: <1 pack per day ALCOHOL: none Drugs: Cocaine (last documented use 10/2016) Lives: Alone CURRENT MEDICATIONS CURRENT MEDICATIONS Current Medications Medications (Trade) Dose Ordered Sig/Rob Route PRN Reason Start Time Stop Time Status Last Admin Dose Admin Nitroglycerin (Nitrostat) 0.4 mg PRN Q5MIN PRN SL CP RATING > 1/10 12/13/16 02:15 12/14/16 02:14 12/13/16 02:23 Enalaprilat (Vasotec) 1.25 mg 1X ONCE IV 12/13/16 02:45 12/13/16 02:46 DC 12/13/16 02:37 Nitroglycerin (Nitro-Bid Oint) 2 inch 1X ONCE TP 12/13/16 03:00 12/13/16 03:01 DC 12/13/16 03:09 Aspirin (Children'S Aspirin) 324 mg 1X ONCE PO 12/13/16 03:00 12/13/16 03:01 DC 12/13/16 03:05 Furosemide (Lasix) 40 mg 1X ONCE IVP 12/13/16 03:30 12/13/16 03:31 DC 12/13/16 03:59 Acetaminophen (Tylenol) 650 mg 1X ONCE PO 12/13/16 03:45 12/13/16 03:46 DC 12/13/16 03:59 Oxycodone/ Acetaminophen (Percocet 10/325) 1 tab PRN Q4HRS PRN PO PAIN 12/13/16 05:45 12/13/16 09:17 Amlodipine Besylate (Norvasc) 10 mg DAILY PO 12/13/16 09:00 12/13/16 08:59 Atorvastatin Calcium (Lipitor) 40 mg DAILY PO 12/13/16 09:00 12/13/16 09:01 Clonidine HCl (Catapres) 0.2 mg BID PO 12/13/16 09:00 12/13/16 09:01 Furosemide (Lasix) 40 mg DAILY PO 12/13/16 09:00 12/13/16 08:58 Insulin Aspart (NovoLOG) 10 units TIDAC SQ 12/13/16 08:30 12/13/16 09:06 Carvedilol (Coreg) 25 mg BIDWMEALS PO 12/13/16 09:00 12/13/16 09:00 Glipizide (Glucotrol) 10 mg BIDBFRMEAL PO 12/13/16 09:00 12/13/16 09:00 Pantoprazole Sodium (Protonix) 40 mg DAILYAC PO 12/13/16 09:00 12/13/16 09:00 ALLERGIES ALLERGIES: Coded Allergies: No Known Drug Allergies (Unverified , 06/10/14) ROS Review of System limited with drowsiness and bipap PHYSICAL EXAM General: Alert, Oriented X3, Cooperative, No acute distress HEENT: Atraumatic, Mucous membr. moist/pink Lungs: Other (basilar crackles) Heart: Regular rate (SR), Normal S1, Normal S2, Other Abdomen: Soft, Other (obese) Extremities: No cyanosis, Other (1+ bilateral LE pitting edema) Skin: No breakdown, No significant lesion Neuro: Normal speech, Sensation intact Psych/Mental Status: Other (drowsy) MUSCULOSKELETAL: Osteoarthritic changes both hands VITALS VITALS Vital Signs Date Time Temp Pulse Resp B/P (MAP) Pulse Ox O2 Delivery O2 Flow Rate FiO2 12/13/16 10:17 98 35.0 12/13/16 09:01 79 172/78 12/13/16 09:00 BiPAP/CPAP 12/13/16 06:00 20 12/13/16 04:15 98.6 98.6 LABS Lab: Laboratory Tests Test 12/13/16 02:01 12/13/16 08:33 12/13/16 09:15 White Blood Count 11.7 x10^3/uL (4.0-11.0) Red Blood Count 3.60 x10^6/uL (3.50-5.40) Hemoglobin 9.5 g/dL (12.0-15.5) Hematocrit 30.8 % (36.0-47.0) Mean Corpuscular Volume 85 fL (79-100) Mean Corpuscular Hemoglobin 26 pg (25-35) Mean Corpuscular Hemoglobin Concent 31 g/dL (31-37) Red Cell Distribution Width 17.5 % (11.5-14.5) Platelet Count 319 x10^3/uL (140-400) Neutrophils (%) (Auto) 73 % (31-73) Lymphocytes (%) (Auto) 15 % (24-48) Monocytes (%) (Auto) 8 % (0-9) Eosinophils (%) (Auto) 3 % (0-3) Basophils (%) (Auto) 1 % (0-3) Neutrophils # (Auto) 8.5 x10^3uL (1.8-7.7) Lymphocytes # (Auto) 1.7 x10^3/uL (1.0-4.8) Monocytes # (Auto) 1.0 x10^3/uL (0.0-1.1) Eosinophils # (Auto) 0.4 x10^3/uL (0.0-0.7) Basophils # (Auto) 0.1 x10^3/uL (0.0-0.2) Sodium Level 143 mmol/L (136-145) Potassium Level 3.8 mmol/L (3.5-5.1) Chloride Level 105 mmol/L (98-107) Carbon Dioxide Level 29 mmol/L (21-32) Anion Gap 9 (6-14) Blood Urea Nitrogen 11 mg/dL (7-20) Creatinine 1.4 mg/dL (0.6-1.0) Estimated GFR (Cockcroft-Gault) 46.6 BUN/Creatinine Ratio 8 (6-20) Glucose Level 221 mg/dL (70-99) Calcium Level 9.1 mg/dL (8.5-10.1) Total Bilirubin 0.2 mg/dL (0.2-1.0) Aspartate Amino Transf (AST/SGOT) 14 U/L (15-37) Alanine Aminotransferase (ALT/SGPT) 11 U/L (14-59) Alkaline Phosphatase 165 U/L (46-116) Troponin I Quantitative 0.164 ng/mL (0.000-0.055) 0.197 ng/mL (0.000-0.055) PF-Xpw-G-Type Natriuretic Peptide 7653 pg/mL (0-124) Total Protein 7.8 g/dL (6.4-8.2) Albumin 2.9 g/dL (3.4-5.0) Albumin/Globulin Ratio 0.6 (1.0-1.7) Glucose (Fingerstick) 171 mg/dL (70-99) IMAGES IMAGES IMPRESSION: Renal scan 1. Delayed perfusion and decreased function of the right kidney with split function: 37.3% right; 62.7% left. Correlate for renal artery stenosis on the right. 2. Delayed excretion from both kidneys without evidence of hydronephrosis. Correlate for a prerenal state or acute tubular necrosis. No evidence of fixed obstruction. DICTATED and SIGNED BY: SSAHA PINEDA MD DATE: 12/02/16 1052 ECHOCARDIOGRAM ECHOCARDIOGRAM <Conclusion> Limited TTE Left ventricle systolic function is mildly diminished. EF by visual estimation is 40-45% Segmental wall motion is difficult to assess due to poor image quality. The basal to mid inferior wall and lateral wall appear to be mildly hypokinetic. DATE: 12/02/16 1017 <Conclusion> full TTE The left ventricle is normal size. Left ventricle systolic function is normal. The Ejection Fraction is 55-60%. There is mild concentric left ventricular hypertrophy. There is no significant aortic valvular stenosis. Doppler and Color Flow revealed no significant aortic regurgitation. Doppler and Color Flow revealed mild mitral regurgitation. Doppler and Color Flow revealed mild tricuspid regurgitation. The PA pressure was estimated at 44 mmHg. DATE: 10/13/16 1618 HEART CATH HEART CATH FINDINGS 1. Hemodynamics: Left ventricular end-diastolic pressure 25 mmHg. No pullback gradient across the aortic valve. 2. Coronary angiography: a. The left main coronary artery arose from the left sinus of Valsalva, gave rise to the left anterior descending and left circumflex arteries and did not show any significant stenosis. b. The left anterior descending artery showed 40% stenosis in the midsegment. c. The left circumflex artery was a large and dominant vessel showed 70% stenosis involving the proximal segment of a medium caliber first obtuse marginal branch that showed severe diffuse disease distally. The second obtuse marginal branch showed 50% stenosis in the proximal to midsegment. d. The right coronary artery was a small and nondominant vessel that showed severe diffuse disease distally. Conclusion Nonobstructive coronary artery disease Recommendations Medical Therapy DATE: 09/26/15 1252 ASSESSMENT/PLAN ASSESSMENT/PLAN 1. Malignant HTN: possible noncompliance. prior hx of cocaine abuse. PRAVEEN contributing. 2. Acute on chronic respiratory failure with COPD and likely PRAVEEN 3. Acute on chronic systolic/diastolic CHF: due to above 4. Hypoxic encephalopathy 5. Elevated troponin: 0.197. EKG SR without acute changes by comparison. CP free. suspect demand mediated 6. Hx of nonobstructive CAD with diffuse disease: [facility] 09/2015 7. CKD3 8. Hx of cocaine abuse, recently quit smoking 9. DM2/HLP: last A1C 9.5 10. Morbid obesity: BMI 49 Recommendations 1. Trend troponin, ABG. Tox screen 2. Continue bipap, pulmonary consult 3. CXR, continue with diuretic therapy 4. Restart Home BP meds. Will uptitrate meds per BP response. 5. Continue to encourage lifestyle modifications. Problems: ALBIN WALTON [employer] Dec 13, 2016 11:47
--- NOTE | 2016-12-13 12:20 | RAD ---
AP chest radiograph 12/13/2016 Clinical indication: Follow-up CHF. Comparison: Same day chest radiograph from approximately 10 hours prior. Findings: Stable cardiac silhouette enlargement and pulmonary venous hypertension with mild interstitial opacities which have slightly improved. Probable trace bilateral pleural effusions and bibasilar atelectasis. No pneumothorax. Impression: Slight improvement in interstitial edema with persistent cardiomegaly and trace bilateral pleural effusions.
[2016-12-13 13:33] LABS: HCO3 ABG 30 mmol/L (21-28); PCO2 ABG 48 mmHg (35-46); PH ABG 7.41 (7.35-7.45); PO2 ABG 66 mmHg (65-108); SAT O2 ABG 92 % (92-99)
[2016-12-13 13:36] LABS: FIO2 ABG 35
[2016-12-13] MEDS ORDERED: FUROSEMIDE 40 MG/4 ML VIAL. IVP ONE (15:00)
[2016-12-13] MEDS ORDERED: MAGNESIUM SULFATE 2GM 50 ML IV ONE (15:00)
--- NOTE | 2016-12-13 15:48 | PDOC ---
PULMONARY PROGRESS NOTES Vitals Vital Signs Date Time Temp Pulse Resp B/P (MAP) Pulse Ox O2 Delivery O2 Flow Rate FiO2 12/13/16 12:15 95 BiPAP/CPAP 12/13/16 10:17 35.0 12/13/16 09:01 79 172/78 12/13/16 06:00 20 12/13/16 04:15 98.6 98.6 General: Alert, No acute distress HEENT: Other Lungs: Clear Cardiovascular: S1, S2 Abdomen: Soft, Non-tender Extremities: No Edema Labs Laboratory Tests Test 12/13/16 02:01 12/13/16 08:33 12/13/16 09:15 12/13/16 13:20 White Blood Count 11.7 x10^3/uL (4.0-11.0) Red Blood Count 3.60 x10^6/uL (3.50-5.40) Hemoglobin 9.5 g/dL (12.0-15.5) Hematocrit 30.8 % (36.0-47.0) Mean Corpuscular Volume 85 fL (79-100) Mean Corpuscular Hemoglobin 26 pg (25-35) Mean Corpuscular Hemoglobin Concent 31 g/dL (31-37) Red Cell Distribution Width 17.5 % (11.5-14.5) Platelet Count 319 x10^3/uL (140-400) Neutrophils (%) (Auto) 73 % (31-73) Lymphocytes (%) (Auto) 15 % (24-48) Monocytes (%) (Auto) 8 % (0-9) Eosinophils (%) (Auto) 3 % (0-3) Basophils (%) (Auto) 1 % (0-3) Neutrophils # (Auto) 8.5 x10^3uL (1.8-7.7) Lymphocytes # (Auto) 1.7 x10^3/uL (1.0-4.8) Monocytes # (Auto) 1.0 x10^3/uL (0.0-1.1) Eosinophils # (Auto) 0.4 x10^3/uL (0.0-0.7) Basophils # (Auto) 0.1 x10^3/uL (0.0-0.2) Sodium Level 143 mmol/L (136-145) Potassium Level 3.8 mmol/L (3.5-5.1) Chloride Level 105 mmol/L (98-107) Carbon Dioxide Level 29 mmol/L (21-32) Anion Gap 9 (6-14) Blood Urea Nitrogen 11 mg/dL (7-20) Creatinine 1.4 mg/dL (0.6-1.0) Estimated GFR (Cockcroft-Gault) 46.6 BUN/Creatinine Ratio 8 (6-20) Glucose Level 221 mg/dL (70-99) Calcium Level 9.1 mg/dL (8.5-10.1) Total Bilirubin 0.2 mg/dL (0.2-1.0) Aspartate Amino Transf (AST/SGOT) 14 U/L (15-37) Alanine Aminotransferase (ALT/SGPT) 11 U/L (14-59) Alkaline Phosphatase 165 U/L (46-116) Troponin I Quantitative 0.164 ng/mL (0.000-0.055) 0.197 ng/mL (0.000-0.055) RS-Omf-M-Type Natriuretic Peptide 7653 pg/mL (0-124) Total Protein 7.8 g/dL (6.4-8.2) Albumin 2.9 g/dL (3.4-5.0) Albumin/Globulin Ratio 0.6 (1.0-1.7) Glucose (Fingerstick) 171 mg/dL (70-99) Magnesium Level 1.6 mg/dL (1.8-2.4) O2 Saturation 92 % (92-99) Arterial Blood pH 7.41 (7.35-7.45) Arterial Blood pCO2 at Patient Temp 48 mmHg (35-46) Arterial Blood pO2 at Patient Temp 66 mmHg (65-108) Arterial Blood HCO3 30 mmol/L (21-28) Arterial Blood Base Excess 4 mmol/L (-3-3) FiO2 35 Laboratory Tests Test 12/13/16 02:01 12/13/16 08:33 12/13/16 09:15 12/13/16 13:20 White Blood Count 11.7 x10^3/uL (4.0-11.0) Red Blood Count 3.60 x10^6/uL (3.50-5.40) Hemoglobin 9.5 g/dL (12.0-15.5) Hematocrit 30.8 % (36.0-47.0) Mean Corpuscular Volume 85 fL (79-100) Mean Corpuscular Hemoglobin 26 pg (25-35) Mean Corpuscular Hemoglobin Concent 31 g/dL (31-37) Red Cell Distribution Width 17.5 % (11.5-14.5) Platelet Count 319 x10^3/uL (140-400) Neutrophils (%) (Auto) 73 % (31-73) Lymphocytes (%) (Auto) 15 % (24-48) Monocytes (%) (Auto) 8 % (0-9) Eosinophils (%) (Auto) 3 % (0-3) Basophils (%) (Auto) 1 % (0-3) Neutrophils # (Auto) 8.5 x10^3uL (1.8-7.7) Lymphocytes # (Auto) 1.7 x10^3/uL (1.0-4.8) Monocytes # (Auto) 1.0 x10^3/uL (0.0-1.1) Eosinophils # (Auto) 0.4 x10^3/uL (0.0-0.7) Basophils # (Auto) 0.1 x10^3/uL (0.0-0.2) Sodium Level 143 mmol/L (136-145) Potassium Level 3.8 mmol/L (3.5-5.1) Chloride Level 105 mmol/L (98-107) Carbon Dioxide Level 29 mmol/L (21-32) Anion Gap 9 (6-14) Blood Urea Nitrogen 11 mg/dL (7-20) Creatinine 1.4 mg/dL (0.6-1.0) Estimated GFR (Cockcroft-Gault) 46.6 BUN/Creatinine Ratio 8 (6-20) Glucose Level 221 mg/dL (70-99) Calcium Level 9.1 mg/dL (8.5-10.1) Total Bilirubin 0.2 mg/dL (0.2-1.0) Aspartate Amino Transf (AST/SGOT) 14 U/L (15-37) Alanine Aminotransferase (ALT/SGPT) 11 U/L (14-59) Alkaline Phosphatase 165 U/L (46-116) Troponin I Quantitative 0.164 ng/mL (0.000-0.055) 0.197 ng/mL (0.000-0.055) EC-Msg-A-Type Natriuretic Peptide 7653 pg/mL (0-124) Total Protein 7.8 g/dL (6.4-8.2) Albumin 2.9 g/dL (3.4-5.0) Albumin/Globulin Ratio 0.6 (1.0-1.7) Glucose (Fingerstick) 171 mg/dL (70-99) Magnesium Level 1.6 mg/dL (1.8-2.4) O2 Saturation 92 % (92-99) Arterial Blood pH 7.41 (7.35-7.45) Arterial Blood pCO2 at Patient Temp 48 mmHg (35-46) Arterial Blood pO2 at Patient Temp 66 mmHg (65-108) Arterial Blood HCO3 30 mmol/L (21-28) Arterial Blood Base Excess 4 mmol/L (-3-3) FiO2 35 Medications Active Scripts Medications Dose Route/Sig Max Daily Dose Days Date Category Doxycycline Hyclate 100 Mg Tablet 100 Mg PO BID 12/04/16 Rx Percocet 10-325 Mg Tablet (Oxycodone/Acetaminophen) 1 Each Tablet 1 Tab PO Q4-6HRS 12/04/16 Rx Toujeo Solostar (Insulin Glargine,Hum.rec.anlog) 300 Unit/1 Ml Insuln.pen 36 Unit SQ HS 10/10/16 Reported Amlodipine Besylate 10 Mg Tablet 10 Mg PO DAILY 09/27/15 Rx Novolog Flexpen (Insulin Aspart) 100 Unit/1 Ml Insuln.pen 10 Units SQ TIDAC 05/27/15 Rx Hydralazine Hcl 50 Mg Tablet 100 Mg PO Q8HRS 05/27/15 Rx Furosemide 40 Mg Tablet 40 Mg PO DAILY 05/27/15 Rx Atorvastatin Calcium 40 Mg Tablet 1 Tab PO DAILY 05/23/15 Reported Omeprazole 40 Mg Capsule.dr 1 Cap PO DAILY 05/23/15 Reported Ventolin Hfa Inhaler (Albuterol Sulfate) 18 Gm Hfa.aer.ad 2 Puff IH PRN Q4-6HRS 05/23/15 Reported Glipizide 10 Mg Tablet 1 Tab PO BIDAC 06/10/14 Reported Clonidine Hcl 0.2 Mg Tablet 1 Tab PO BID 06/10/14 Reported Coreg (Carvedilol) 25 Mg Tablet 1 Tab PO [id number] 06/10/14 Reported Impression . PT EXAMINED FULL NOTE DICTATED A/C RESP FAILURE A/C CHF THANKS DIMPLE ACOSTA MD Dec 13, 2016 15:48
[2016-12-13] MEDS: oxyCODONE/APAP 10/325 1 TAB TABLET PO PRN ×2 (16:44→22:15)
[2016-12-13] MEDS: ALBUTEROL SULFATE 2.5 MG/3 ML NEBU. NEB PRN (20:52)
[2016-12-13] MEDS ORDERED: INSULIN DETEMIR 300 UNITS/3 ML INSULN.PEN. SQ SCH (21:00)
[2016-12-13] MEDS: INSULIN DETEMIR 300 UNITS/3 ML INSULN.PEN. SQ SCH (21:13)
[2016-12-13] MEDS ORDERED: ENOXAPARIN 40 MG/0.4 ML SYRINGE. SQ SCH (22:00)
[2016-12-14] VITALS (16 sets, daily range): BP systolic 96–139; BP diastolic 45–80
--- NOTE | 2016-12-14 00:06 | CONS ---
DATE OF CONSULTATION: 12/13/2016 ATTENDING PHYSICIAN: Lynda Foy M.D. REASON FOR CONSULTATION: The patient is seen in pulmonary consultation at the request of Dr. Foy for acute respiratory failure, requiring noninvasive ventilation. HISTORY OF PRESENT ILLNESS: The patient is a 61-year-old female who is well known to me from previous hospitalization, presented with acute onset of shortness of breath overnight. She denied fever or chills. She had some lower extremity edema and some chest discomfort. She presented to the Emergency Room and an arterial blood gas was obtained, revealing a pH of 7.41, PaCO2 of 48, pO2 of 66 on 35%. The patient has had increased work of breathing. She was placed on BiPAP and transferred to the Intensive Care Unit. She is currently off of the Intensive Care Unit. She is doing better. She denies a productive cough. No fever, chills, nausea, vomiting. Chest x-ray showed mild congestive heart failure. PAST MEDICAL HISTORY: Remarkable for chronic heart failure, hypertension, obesity, obstructive sleep apnea, COPD, osteoarthritis, diabetes. PAST SURGICAL HISTORY: Status post tonsillectomy. FAMILY HISTORY: Cancer and hypertension. SOCIAL HISTORY: She currently denies any alcohol or tobacco use. REVIEW OF SYSTEMS: As indicated above, otherwise, a 10-point system was reviewed and negative. CURRENT MEDICATIONS: Current medication list was reviewed. PHYSICAL EXAMINATION: VITAL SIGNS: The patient was off of BiPAP, awake, alert, following commands. HEENT: Eyes: The sclerae were nonicteric. NECK: Jugular venous distention was not elevated. No lymphadenopathy. CHEST: Full expansion. LUNGS: Slight crackles in the bases. No wheezes. CARDIOVASCULAR: Regular rate and rhythm with S1 and S2; no S3. ABDOMEN: Soft, obese. EXTREMITIES: No clubbing or cyanosis. Minimal edema. NEUROLOGIC: The patient was awake, alert, following commands. A detailed neuro exam was not performed. LABORATORY DATA: Labs were reviewed. IMAGING DATA: Chest x-ray reviewed. IMPRESSION: 1. Pyyto-ve-igjshlt hypoxemic respiratory failure secondary to acute systolic and diastolic heart failure. 2. Acute on chronic systolic and diastolic heart failure. 3. Obstructive sleep apnea, noncompliant with CPAP. 4. Obesity, body mass index of 49.1. 5. Chronic obstructive pulmonary disease. 6. Chronic kidney disease, stage III. 7. Moderate protein malnutrition, present upon admission. 8. Diabetes. PLAN: 1. Continue current diuresis. 2. Oxygen supplementation. 3. P.r.n. BiPAP. 4. We will try to obtain old sleep study and initiate CPAP as tolerated. 5. The patient is to avoid excessive amounts of salt. 6. No need for antibiotics or steroids. I do appreciate the privilege in sharing in the patient's care. DIMPLE ACOSTA MD DR: JUDI/derik JOB#: [id number] / [id number]
--- NOTE | 2016-12-14 01:16 | ACF ---
Admission Forms Criteria HEART FAILURE: COMMON COMPLICATIONS (Place 'X' for any and all applicable criteria): Ongoing inpatient care may be indicated for heart failure with 1 or more of the following (1)(2)(3)(4)(5)(6)(7)(8): [ ]I. New-onset heart failure [ ]II. Acute cardiac ischemia causing or associated with failure [ ]III. Ongoing need for care for primary condition requiring frequent therapy adjustments because of changes in cardiac function (eg, drug dosage changes for drugs that are renally metabolized) [X]IV. Complications of heart failure, including 1 or more of the following: [ ]a) Hemodynamic instability [ ]b) Pericardial effusion [ ]c) Symptomatic pleural effusion [ ]d) Hypoxemia [ ]e) Tachypnea [X]f) Dyspnea [ ]g) Syncope [ ]h) Altered mental status [ ]i) Acute renal insufficiency that is severe (reduction of more than 50% in estimated glomerular filtration rate from baseline) or progressive reduction of more than 25% in estimated glomerular filtration rate from baseline, with creatinine continuing to rise) [ ]j) Debilitating anasarca (eg tissue breakdown with infection, inability to void due to edema) (E) [ ]k) Clinically significant metabolic abnormalities due to heart failure (eg, new-onset metabolic acidosis) Extended stay may be needed until ALL of the following are present (1)(3)(18)(41 )(55) [ ]a) Hemodynamic stability [ ]b) Stable and effective diuretic regimen established (or patient on stable dialysis regimen if in chronic renal failure) [ ]c) Volume status acceptable on oral medication [ ]d) Breathing comfortably at rest [ ]e) Saturation of arterial oxygen greater than 90% or at acceptable baseline [ ]f) Pulmonary edema absent or improved [ ]g) Peripheral or sacral edema absent or improved [ ]h) Renal function stable and manageable at a lower level of care [ ]i) Complications (eg, pleural effusion) resolved or manageable at a lower level of care [ ]g) Patient or caregiver has received written discharge instructions or educational material addressing activity level, diet, discharge medications, follow-up appointment, weight monitoring, and what to do if symptoms worsen.(25)(26) The original [facility] content created by [employer] has been revised. The portions of the content which have been revised are identified through the use of italic text, and [facility] has neither reviewed nor approved the modified material.All other unmodified content is copyright [facility]. Please see references footnoted in the original [facility] edition 2015 Admission Criteria Met?: Yes ROBIN MELO Dec 14, 2016 01:16
[2016-12-14] MEDS: oxyCODONE/APAP 10/325 1 TAB TABLET PO PRN ×4 (03:55→21:49)
[2016-12-14 04:12] LABS: BASO # 0.1 x10^3/uL (0.0-0.2); BASO % 1 % (0-3); EOS % 8 % (0-3); HEMATOCRIT 24.5 % (36.0-47.0); HEMOGLOBIN 7.7 g/dL (12.0-15.5); LYMPH # 1.4 x10^3/uL (1.0-4.8); LYMPH % 24 % (24-48); MEAN CORPUSCULAR HEMOGLOBIN 27 pg (25-35); MEAN CORPUSCULAR HGB CONC 32 g/dL (31-37); MEAN CORPUSCULAR VOLUME 85 fL (79-100); MONO % 12 % (0-9); NEUT % 55 % (31-73); PLATELET COUNT 243 x10^3/uL (140-400); RED BLOOD COUNT 2.88 x10^6/uL (3.50-5.40); RED CELL DISTRIBUTION WIDTH 17.5 % (11.5-14.5); WHITE BLOOD COUNT 5.8 x10^3/uL (4.0-11.0)
[2016-12-14 04:27] LABS: ALBUMIN 2.2 g/dL (3.4-5.0); ALBUMIN/GLOBULIN RATIO 0.6 (1.0-1.7); CALCIUM 8.1 mg/dL (8.5-10.1); CREATININE 1.9 mg/dL (0.6-1.0); GFR 32.7; TOTAL BILIRUBIN 0.1 mg/dL (0.2-1.0); TOTAL PROTEIN 6.2 g/dL (6.4-8.2)
[2016-12-14] MEDS: INSULIN ASPART 300 UNITS/3 ML INSULN.PEN SQ SCH ×6 (08:00→17:28)
[2016-12-14] MEDS ORDERED: POTASSIUM CHLORIDE 20 MEQ TABLET.ER. PO SCH (08:00)
--- NOTE | 2016-12-14 08:51 | PDOC ---
PROGRESS NOTES Chief Complaint Chief Complaint [id number] hypoxemic respiratory failure secondary to acute systolic and diastolic heart failure. Acute on chronic diastolic CHF PRAVEEN, not compliant with cpap acute shortness of breath, possible cor pulmonale from CHF accelerated htn on admit respiratory failure requiring BiPAP, no hypoxia documented anemia of CKD, CKD 3 w/ possible vasomotor moderate malnutrition, Serum albumin 2.9, in morbid obesity, BMI 49 DM2, moderate poor control, History of Present Illness History of Present Illness is much more active this AM, out of bed up and eating this AM feels well, conversant LE edema better Vitals Vitals Vital Signs Date Time Temp Pulse Resp B/P (MAP) Pulse Ox O2 Delivery O2 Flow Rate FiO2 12/14/16 06:13 66 22 139/60 (86) 95 BiPAP/CPAP 12/14/16 04:00 98.3 2.0 98.3 Physical Exam General: Alert, Oriented X3, Cooperative, No acute distress Heart: Regular rate (SR), Normal S1, Normal S2, Other Lungs: Clear Abdomen: Soft, Other (obese) Extremities: No cyanosis, Other (1+ bilateral LE pitting edema) Skin: No breakdown, No significant lesion Labs LABS Laboratory Tests Test 12/13/16 09:15 12/13/16 13:20 12/13/16 15:30 12/13/16 17:25 Magnesium Level 1.6 mg/dL (1.8-2.4) Troponin I Quantitative 0.197 ng/mL (0.000-0.055) 0.176 ng/mL (0.000-0.055) O2 Saturation 92 % (92-99) Arterial Blood pH 7.41 (7.35-7.45) Arterial Blood pCO2 at Patient Temp 48 mmHg (35-46) Arterial Blood pO2 at Patient Temp 66 mmHg (65-108) Arterial Blood HCO3 30 mmol/L (21-28) Arterial Blood Base Excess 4 mmol/L (-3-3) FiO2 35 Glucose (Fingerstick) 188 mg/dL (70-99) Test 12/13/16 20:49 12/14/16 03:40 12/14/16 08:28 Glucose (Fingerstick) 101 mg/dL (70-99) 114 mg/dL (70-99) White Blood Count 5.8 x10^3/uL (4.0-11.0) Red Blood Count 2.88 x10^6/uL (3.50-5.40) Hemoglobin 7.7 g/dL (12.0-15.5) Hematocrit 24.5 % (36.0-47.0) Mean Corpuscular Volume 85 fL (79-100) Mean Corpuscular Hemoglobin 27 pg (25-35) Mean Corpuscular Hemoglobin Concent 32 g/dL (31-37) Red Cell Distribution Width 17.5 % (11.5-14.5) Platelet Count 243 x10^3/uL (140-400) Neutrophils (%) (Auto) 55 % (31-73) Lymphocytes (%) (Auto) 24 % (24-48) Monocytes (%) (Auto) 12 % (0-9) Eosinophils (%) (Auto) 8 % (0-3) Basophils (%) (Auto) 1 % (0-3) Neutrophils # (Auto) 3.2 x10^3uL (1.8-7.7) Lymphocytes # (Auto) 1.4 x10^3/uL (1.0-4.8) Monocytes # (Auto) 0.7 x10^3/uL (0.0-1.1) Eosinophils # (Auto) 0.4 x10^3/uL (0.0-0.7) Basophils # (Auto) 0.1 x10^3/uL (0.0-0.2) Sodium Level 139 mmol/L (136-145) Potassium Level 4.0 mmol/L (3.5-5.1) Chloride Level 102 mmol/L (98-107) Carbon Dioxide Level 30 mmol/L (21-32) Anion Gap 7 (6-14) Blood Urea Nitrogen 16 mg/dL (7-20) Creatinine 1.9 mg/dL (0.6-1.0) Estimated GFR (Cockcroft-Gault) 32.7 BUN/Creatinine Ratio 8 (6-20) Glucose Level 211 mg/dL (70-99) Calcium Level 8.1 mg/dL (8.5-10.1) Total Bilirubin 0.1 mg/dL (0.2-1.0) Aspartate Amino Transf (AST/SGOT) 8 U/L (15-37) Alanine Aminotransferase (ALT/SGPT) 11 U/L (14-59) Alkaline Phosphatase 130 U/L (46-116) Total Protein 6.2 g/dL (6.4-8.2) Albumin 2.2 g/dL (3.4-5.0) Albumin/Globulin Ratio 0.6 (1.0-1.7) Review of Systems Review of Systems no n.vd. Assessment and Plan Assessmemt and Plan Problems Medical Problems: (1) Congestive heart failure (CHF) Status: Acute (2) Elevated troponin Status: Acute (3) Hypertensive emergency Status: Acute Problems: Comment Review of Relevant I have reviewed the following items jessee (where applicable) has been applied. Labs Laboratory Tests Test 12/13/16 02:01 12/13/16 04:20 12/13/16 08:33 12/13/16 09:15 White Blood Count 11.7 x10^3/uL (4.0-11.0) Red Blood Count 3.60 x10^6/uL (3.50-5.40) Hemoglobin 9.5 g/dL (12.0-15.5) Hematocrit 30.8 % (36.0-47.0) Mean Corpuscular Volume 85 fL (79-100) Mean Corpuscular Hemoglobin 26 pg (25-35) Mean Corpuscular Hemoglobin Concent 31 g/dL (31-37) Red Cell Distribution Width 17.5 % (11.5-14.5) Platelet Count 319 x10^3/uL (140-400) Neutrophils (%) (Auto) 73 % (31-73) Lymphocytes (%) (Auto) 15 % (24-48) Monocytes (%) (Auto) 8 % (0-9) Eosinophils (%) (Auto) 3 % (0-3) Basophils (%) (Auto) 1 % (0-3) Neutrophils # (Auto) 8.5 x10^3uL (1.8-7.7) Lymphocytes # (Auto) 1.7 x10^3/uL (1.0-4.8) Monocytes # (Auto) 1.0 x10^3/uL (0.0-1.1) Eosinophils # (Auto) 0.4 x10^3/uL (0.0-0.7) Basophils # (Auto) 0.1 x10^3/uL (0.0-0.2) Sodium Level 143 mmol/L (136-145) Potassium Level 3.8 mmol/L (3.5-5.1) Chloride Level 105 mmol/L (98-107) Carbon Dioxide Level 29 mmol/L (21-32) Anion Gap 9 (6-14) Blood Urea Nitrogen 11 mg/dL (7-20) Creatinine 1.4 mg/dL (0.6-1.0) Estimated GFR (Cockcroft-Gault) 46.6 BUN/Creatinine Ratio 8 (6-20) Glucose Level 221 mg/dL (70-99) Hemoglobin A1c 7.7 % (4.8-5.6) Calcium Level 9.1 mg/dL (8.5-10.1) Total Bilirubin 0.2 mg/dL (0.2-1.0) Aspartate Amino Transf (AST/SGOT) 14 U/L (15-37) Alanine Aminotransferase (ALT/SGPT) 11 U/L (14-59) Alkaline Phosphatase 165 U/L (46-116) Troponin I Quantitative 0.164 ng/mL (0.000-0.055) 0.197 ng/mL (0.000-0.055) QX-Ktt-[id number]-Type Natriuretic Peptide 7653 pg/mL (0-124) Total Protein 7.8 g/dL (6.4-8.2) Albumin 2.9 g/dL (3.4-5.0) Albumin/Globulin Ratio 0.6 (1.0-1.7) Nasal Screen MRSA (PCR) Negative (Negative) Glucose (Fingerstick) 171 mg/dL (70-99) Magnesium Level 1.6 mg/dL (1.8-2.4) Test 12/13/16 13:20 12/13/16 15:30 12/13/16 17:25 12/13/16 20:49 O2 Saturation 92 % (92-99) Arterial Blood pH 7.41 (7.35-7.45) Arterial Blood pCO2 at Patient Temp 48 mmHg (35-46) Arterial Blood pO2 at Patient Temp 66 mmHg (65-108) Arterial Blood HCO3 30 mmol/L (21-28) Arterial Blood Base Excess 4 mmol/L (-3-3) FiO2 35 Troponin I Quantitative 0.176 ng/mL (0.000-0.055) Glucose (Fingerstick) 188 mg/dL (70-99) 101 mg/dL (70-99) Test 12/14/16 03:40 12/14/16 08:28 White Blood Count 5.8 x10^3/uL (4.0-11.0) Red Blood Count 2.88 x10^6/uL (3.50-5.40) Hemoglobin 7.7 g/dL (12.0-15.5) Hematocrit 24.5 % (36.0-47.0) Mean Corpuscular Volume 85 fL (79-100) Mean Corpuscular Hemoglobin 27 pg (25-35) Mean Corpuscular Hemoglobin Concent 32 g/dL (31-37) Red Cell Distribution Width 17.5 % (11.5-14.5) Platelet Count 243 x10^3/uL (140-400) Neutrophils (%) (Auto) 55 % (31-73) Lymphocytes (%) (Auto) 24 % (24-48) Monocytes (%) (Auto) 12 % (0-9) Eosinophils (%) (Auto) 8 % (0-3) Basophils (%) (Auto) 1 % (0-3) Neutrophils # (Auto) 3.2 x10^3uL (1.8-7.7) Lymphocytes # (Auto) 1.4 x10^3/uL (1.0-4.8) Monocytes # (Auto) 0.7 x10^3/uL (0.0-1.1) Eosinophils # (Auto) 0.4 x10^3/uL (0.0-0.7) Basophils # (Auto) 0.1 x10^3/uL (0.0-0.2) Sodium Level 139 mmol/L (136-145) Potassium Level 4.0 mmol/L (3.5-5.1) Chloride Level 102 mmol/L (98-107) Carbon Dioxide Level 30 mmol/L (21-32) Anion Gap 7 (6-14) Blood Urea Nitrogen 16 mg/dL (7-20) Creatinine 1.9 mg/dL (0.6-1.0) Estimated GFR (Cockcroft-Gault) 32.7 BUN/Creatinine Ratio 8 (6-20) Glucose Level 211 mg/dL (70-99) Calcium Level 8.1 mg/dL (8.5-10.1) Total Bilirubin 0.1 mg/dL (0.2-1.0) Aspartate Amino Transf (AST/SGOT) 8 U/L (15-37) Alanine Aminotransferase (ALT/SGPT) 11 U/L (14-59) Alkaline Phosphatase 130 U/L (46-116) Total Protein 6.2 g/dL (6.4-8.2) Albumin 2.2 g/dL (3.4-5.0) Albumin/Globulin Ratio 0.6 (1.0-1.7) Glucose (Fingerstick) 114 mg/dL (70-99) Laboratory Tests Test 12/13/16 09:15 12/13/16 13:20 12/13/16 15:30 12/13/16 17:25 Magnesium Level 1.6 mg/dL (1.8-2.4) Troponin I Quantitative 0.197 ng/mL (0.000-0.055) 0.176 ng/mL (0.000-0.055) O2 Saturation 92 % (92-99) Arterial Blood pH 7.41 (7.35-7.45) Arterial Blood pCO2 at Patient Temp 48 mmHg (35-46) Arterial Blood pO2 at Patient Temp 66 mmHg (65-108) Arterial Blood HCO3 30 mmol/L (21-28) Arterial Blood Base Excess 4 mmol/L (-3-3) FiO2 35 Glucose (Fingerstick) 188 mg/dL (70-99) Test 12/13/16 20:49 12/14/16 03:40 12/14/16 08:28 Glucose (Fingerstick) 101 mg/dL (70-99) 114 mg/dL (70-99) White Blood Count 5.8 x10^3/uL (4.0-11.0) Red Blood Count 2.88 x10^6/uL (3.50-5.40) Hemoglobin 7.7 g/dL (12.0-15.5) Hematocrit 24.5 % (36.0-47.0) Mean Corpuscular Volume 85 fL (79-100) Mean Corpuscular Hemoglobin 27 pg (25-35) Mean Corpuscular Hemoglobin Concent 32 g/dL (31-37) Red Cell Distribution Width 17.5 % (11.5-14.5) Platelet Count 243 x10^3/uL (140-400) Neutrophils (%) (Auto) 55 % (31-73) Lymphocytes (%) (Auto) 24 % (24-48) Monocytes (%) (Auto) 12 % (0-9) Eosinophils (%) (Auto) 8 % (0-3) Basophils (%) (Auto) 1 % (0-3) Neutrophils # (Auto) 3.2 x10^3uL (1.8-7.7) Lymphocytes # (Auto) 1.4 x10^3/uL (1.0-4.8) Monocytes # (Auto) 0.7 x10^3/uL (0.0-1.1) Eosinophils # (Auto) 0.4 x10^3/uL (0.0-0.7) Basophils # (Auto) 0.1 x10^3/uL (0.0-0.2) Sodium Level 139 mmol/L (136-145) Potassium Level 4.0 mmol/L (3.5-5.1) Chloride Level 102 mmol/L (98-107) Carbon Dioxide Level 30 mmol/L (21-32) Anion Gap 7 (6-14) Blood Urea Nitrogen 16 mg/dL (7-20) Creatinine 1.9 mg/dL (0.6-1.0) Estimated GFR (Cockcroft-Gault) 32.7 BUN/Creatinine Ratio 8 (6-20) Glucose Level 211 mg/dL (70-99) Calcium Level 8.1 mg/dL (8.5-10.1) Total Bilirubin 0.1 mg/dL (0.2-1.0) Aspartate Amino Transf (AST/SGOT) 8 U/L (15-37) Alanine Aminotransferase (ALT/SGPT) 11 U/L (14-59) Alkaline Phosphatase 130 U/L (46-116) Total Protein 6.2 g/dL (6.4-8.2) Albumin 2.2 g/dL (3.4-5.0) Albumin/Globulin Ratio 0.6 (1.0-1.7) Medications Current Medications Nitroglycerin (Nitrostat) 0.4 mg PRN Q5MIN PRN SL CP RATING > 05/25 Last administered on 12/13/16t 02:23; Start 12/13/16 at 02:15; Stop 12/14/16 at 02:14 ; Status DC Enalaprilat (Vasotec) 1.25 mg 1X ONCE IV Last administered on 12/13/16 02:37 ; Start 12/13/16 at 02:45; Stop 12/13/16 at 02:46; Status DC Nitroglycerin (Nitro-Bid Oint) 2 inch 1X ONCE TP Last administered on 03:09; Start 12/13/16 at 03:00; Stop 12/13/16 at 03:01; Status DC Aspirin (Children'S Aspirin) 324 mg 1X ONCE PO Last administered on 12/13/16 03:05; Start 12/13/16 at 03:00; Stop 12/13/16 at 03:01; Status DC Furosemide (Lasix) 40 mg 1X ONCE IVP Last administered on 12/13/16 03:59; Start 12/13/16 at 03:30; Stop 12/13/16 at 03:31; Status DC Ondansetron HCl (Zofran) 4 mg PRN Q8HRS PRN IV NAUSEA/VOMITING; Start 12/13/16 at 03:30; Stop 12/14/16 at 03:30; Status DC Acetaminophen (Tylenol) 650 mg 1X ONCE PO Last administered on 12/13/16 03:59 ; Start 12/13/16 at 03:45; Stop 12/13/16 at 03:46; Status DC Labetalol HCl (Normodyne) 20 mg PRN Q6HRS PRN IVP HYPERTENSION, SEE COMMENTS; Start 12/13/16 at 05:45 Insulin Detemir (Levemir) 36 units QHS SQ ; Start 12/13/16 at 21:00; Stop at 21:00; Status DC Insulin Aspart (NovoLOG) 0-7 UNITS TIDWMEALS SQ Last administered on 12/13/16 18:38; Start 12/13/16 at 08:00 Dextrose (Dextrose 50%-Water Syringe) 12.5 gm PRN Q15MIN PRN IV SEE COMMENTS; Start 12/13/16 at 05:45; Stop 12/13/16 at 08:38; Status DC Oxycodone/ Acetaminophen (Percocet 10/325) 1 tab PRN Q4HRS PRN PO PAIN Last administered on 12/13/16 09:17; Start 12/13/16 at 05:45; Stop 12/13/16 at 13:41 ; Status DC Amlodipine Besylate (Norvasc) 10 mg DAILY PO Last administered on 12/13/16 08: 59; Start 12/13/16 at 09:00 Atorvastatin Calcium (Lipitor) 40 mg DAILY PO Last administered on 12/13/16 09 :01; Start 12/13/16 at 09:00 Clonidine HCl (Catapres) 0.2 mg BID PO Last administered on 12/13/16 09:01; Start 12/13/16 at 09:00 Furosemide (Lasix) 40 mg DAILY PO Last administered on 12/13/16 08:58; Start 12/13/16 at 09:00; Stop 12/13/16 at 13:33; Status DC Hydralazine HCl (Apresoline) 100 mg Q8HRS PO Last administered on 12/13/16 15: 45; Start 12/13/16 at 14:00 Insulin Aspart (NovoLOG) 10 units TIDAC SQ Last administered on 12/13/16 18:36 ; Start 12/13/16 at 08:30 Oxycodone/ Acetaminophen (Percocet 10/325) 1 tab PRN Q4HRS PRN PO pain Last administered on 12/14/16 03:55; Start 12/13/16 at 08:30 Non-Formulary Medication 2 puff PRN Q4-6HRS IH ; Start 12/13/16 at 08:30; Stop 12/13/16 at 08:34; Status DC Carvedilol (Coreg) 25 mg BIDWMEALS PO Last administered on 12/13/16 18:33; Start 12/13/16 at 09:00 Glipizide (Glucotrol) 10 mg BIDBFRMEAL PO Last administered on 12/13/16 18:33 ; Start 12/13/16 at 09:00 Insulin Detemir (Levemir) 29 units QHS SQ Last administered on 12/13/16 21:13 ; Start 12/13/16 at 21:00 Pantoprazole Sodium (Protonix) 40 mg DAILYAC PO Last administered on 12/13/16 09:00; Start 12/13/16 at 09:00 Dextrose (Dextrose 50%-Water Syringe) 12.5 gm PRN Q15MIN PRN IV SEE COMMENTS; Start 12/13/16 at 08:30 Dextrose (Dextrose 50%-Water Syringe) 12.5 gm PRN Q15MIN PRN IV SEE COMMENTS; Start 12/13/16 at 08:30; Stop 12/13/16 at 08:39; Status DC Albuterol Sulfate (Ventolin Neb Soln) 2.5 mg PRN Q4HRS PRN NEB SHORTNESS OF BREATH Last administered on 12/13/16 20:52; Start 12/13/16 at 08:30 Furosemide (Lasix) 40 mg DAILY IVP ; Start 12/14/16 at 09:00; Stop 12/14/16 at 09: 00; Status DC Aspirin (Ecotrin) 81 mg DAILYWBKFT PO ; Start 12/14/16 at 08:00 Furosemide (Lasix) 40 mg 1X ONCE IVP Last administered on 12/13/16 15:45; Start 12/13/16 at 15:00; Stop 12/13/16 at 15:01; Status DC Potassium Chloride (Klor-Con) 20 meq DAILYWBKFT PO ; Start 12/14/16 at 08:00 Magnesium Sulfate/ Dextrose 50 ml @ 25 mls/hr 1X ONCE IV Last administered on 12/13/16 15:44; Start 12/13/16 at 15:00; Stop 12/13/16 at 16:59; Status DC Enoxaparin Sodium (Lovenox Per Pharmacy Prophylaxis Dosing) 1 each PRN DAILY PRN MC SEE COMMENTS; Start 12/13/16 at 22:00 Enoxaparin Sodium (Lovenox 40mg Syringe) 40 mg Q24H SQ Last administered on 22:15; Start 12/13/16 at 22:00 Active Scripts Active Doxycycline Hyclate 100 Mg Tablet 100 Mg PO BID Percocet 10-325 Mg Tablet (Oxycodone/Acetaminophen) 1 Each Tablet 1 Tab PO Q4- 6HRS Amlodipine Besylate 10 Mg Tablet 10 Mg PO DAILY Novolog Flexpen (Insulin Aspart) 100 Unit/1 Ml Insuln.pen 10 Units SQ TIDAC Hydralazine Hcl 50 Mg Tablet 100 Mg PO Q8HRS Furosemide 40 Mg Tablet 40 Mg PO DAILY Reported Toujeo Solostar (Insulin Glargine,Hum.rec.anlog) 300 Unit/1 Ml Insuln.pen 36 Unit SQ HS Atorvastatin Calcium 40 Mg Tablet 1 Tab PO DAILY Omeprazole 40 Mg Capsule.dr 1 Cap PO DAILY Ventolin Hfa Inhaler (Albuterol Sulfate) 18 Gm Hfa.aer.ad 2 Puff IH PRN Q4-6HRS Glipizide 10 Mg Tablet 1 Tab PO BIDAC Clonidine Hcl 0.2 Mg Tablet 1 Tab PO BID Coreg (Carvedilol) 25 Mg Tablet 1 Tab PO BID92 Vitals/I & O Vital Sign - Last 24 Hours 12/13/16 12/13/16 12/13/16 12/13/16 08:59 09:00 09:00 09:00 Pulse 84 76 82 Resp 20 B/P (MAP) 172/78 172/78 174/76 (108) Pulse Ox 98 98 O2 Delivery BiPAP/CPAP BiPAP/CPAP 12/13/16 12/13/16 12/13/16 12/13/16 09:01 09:17 10:00 10:17 Pulse 79 82 Resp 20 B/P (MAP) 172/78 174/76 (108) Pulse Ox 98 98 98 O2 Delivery BiPAP/CPAP O2 Flow Rate 35.0 12/13/16 12/13/16 12/13/16 12/13/16 11:00 12:00 12:00 12:15 Pulse 82 82 Resp 20 20 B/P (MAP) 174/76 (108) 174/76 (108) Pulse Ox 98 98 95 O2 Delivery BiPAP/CPAP BiPAP/CPAP Bi-pap BiPAP/CPAP 12/13/16 12/13/16 12/13/16 12/13/16 13:00 14:00 15:00 15:45 Pulse 82 82 82 68 Resp 20 20 20 B/P (MAP) 120/63 (82) 174/76 (108) 174/76 (108) 120/65 Pulse Ox 98 98 98 O2 Delivery BiPAP/CPAP BiPAP/CPAP BiPAP/CPAP 12/13/16 12/13/16 12/13/16 12/13/16 16:00 16:00 16:44 17:00 Pulse 82 82 Resp 20 20 B/P (MAP) 174/76 (108) 174/76 (108) Pulse Ox 98 95 98 O2 Delivery Nasal Cannula BiPAP/CPAP BiPAP/CPAP O2 Flow Rate 2.0 35.0 12/13/16 12/13/16 12/13/16 12/13/16 17:22 18:00 18:33 19:00 Pulse 82 76 76 Resp 20 20 B/P (MAP) 131/59 (83) 131/59 Pulse Ox 98 98 95 O2 Delivery Nasal Cannula BiPAP/CPAP Nasal Cannula O2 Flow Rate 2.0 2.0 12/13/16 12/13/16 12/13/16 12/13/16 20:00 20:30 20:52 21:00 Pulse 76 97 Resp 20 B/P (MAP) 107/50 (69) 100/48 Pulse Ox 94 95 O2 Delivery Nasal Cannula Nasal Cannula Nasal Cannula O2 Flow Rate 2.0 2.0 2.0 12/13/16 12/13/16 12/13/16 12/13/16 21:00 22:00 22:15 23:00 Temp 99.1 99.1 Pulse 76 81 81 Resp 21 18 18 18 B/P (MAP) 95/45 (62) 113/59 (77) 113/59 (77) Pulse Ox 99 97 97 97 O2 Delivery Nasal Cannula Nasal Cannula Nasal Cannula Nasal Cannula O2 Flow Rate 2.0 2.0 2.0 2.0 12/13/16 12/14/16 12/14/16 12/14/16 23:15 00:00 00:25 01:01 Temp 98.0 98.0 Pulse 78 77 Resp 18 18 B/P (MAP) 100/50 (67) 136/73 (94) Pulse Ox 97 98 O2 Delivery Nasal Cannula Nasal Cannula Nasal Cannula O2 Flow Rate 2.0 2.0 2.0 2.0 12/14/16 12/14/16 12/14/16 12/14/16 02:00 03:04 03:55 03:55 Pulse 81 73 Resp 18 18 18 B/P (MAP) 135/65 (88) 96/76 (83) Pulse Ox 98 96 99 O2 Delivery Nasal Cannula Nasal Cannula Nasal Cannula BiPAP/CPAP O2 Flow Rate 2.0 2.0 2.0 12/14/16 12/14/16 12/14/16 12/14/16 03:59 04:00 04:26 05:06 Temp 98.3 98.3 98.3 98.3 Pulse 73 77 Resp 24 24 22 B/P (MAP) 119/60 (79) 110/54 (72) Pulse Ox 97 97 97 O2 Delivery Nasal Cannula Nasal Cannula Bi-pap BiPAP/CPAP O2 Flow Rate 2.0 2.0 12/14/16 12/14/16 05:13 06:13 Pulse 69 66 Resp 22 22 B/P (MAP) 122/46 (71) 139/60 (86) Pulse Ox 93 95 O2 Delivery BiPAP/CPAP BiPAP/CPAP Intake and Output 12/13/16 12/13/16 12/14/16 15:00 23:00 07:00 Intake Total 1217 ml Output Total 0 ml Balance 1217 ml REJI HOLLIDAY MD Dec 14, 2016 08:51
[2016-12-14] MEDS ORDERED: FUROSEMIDE 40 MG/4 ML VIAL. IVP SCH (09:00)
[2016-12-14] MEDS ORDERED: MAGNESIUM SULFATE 2GM 50 ML IV PRN (09:00)
[2016-12-14] MEDS: ASPIRIN ENTERIC COATED 81 MG TABLET.DR. PO SCH (09:01)
[2016-12-14] MEDS: glipiZIDE 5 MG TABLET PO SCH ×2 (09:01→16:33)
[2016-12-14] MEDS: ATORVASTATIN CALCIUM 40 MG TABLET. PO SCH (09:02)
[2016-12-14] MEDS: cloNIDine HCL 0.2 MG TABLET PO SCH ×2 (09:03→20:25)
[2016-12-14] MEDS: amLODIPine BESYLATE 10 MG TABLET PO SCH (09:04)
[2016-12-14] MEDS: PANTOPRAZOLE 40 MG TABLET.DR. PO SCH (09:04)
[2016-12-14] MEDS: CARVEDILOL 12.5 MG TABLET. PO SCH ×2 (09:04→16:26)
--- NOTE | 2016-12-14 09:08 | PDOC2 ---
CONSULT Date of Consult Date of Consult DATE: 12/14/16 TIME: 08:56 Reason for Consult Reason for Consult: CKD III/ ? MARY Referring Physician Referring Physician: Dr Foy Identification/Chief Complaint Chief Complaint SOB Problems: Source Source: Chart review, Patient History of Present Illness Reason for Visit: as dictated Past Medical History Cardiovascular: CAD (nonobstructive with diffuse disease), CHF (diastolic), HTN , Hyperlipidemia Pulmonary: COPD, Other (chronic respiratory failure; pulmonary HTN) GI: GERD Heme/Onc: Anemia NOS Psych: Anxiety Musculoskeletal: Osteoarthritis, Other (right arm fracture) Rheumatologic: No pertinent hx Infectious disease: No pertinent hx ENT: No pertinent hx Renal/: Chronic renal insuff (CKD3) Endocrine: Diabetes (2) Past Surgical History Past Surgical History: Tubal Ligation, Tonsillectomy Family History Family History: Hypertension Social History <1 pack per day ALCOHOL: none Drugs: Cocaine (last documented use 10/2016) Lives: Alone Current Problem List Problem List Problems Medical Problems: (1) Congestive heart failure (CHF) Status: Acute (2) Elevated troponin Status: Acute (3) Hypertensive emergency Status: Acute Current Medications Current Medications Current Medications Nitroglycerin (Nitrostat) 0.4 mg PRN Q5MIN PRN SL CP RATING > 1/10 Last administered on 12/13/16 02:23; Start 12/13/16 at 02:15; Stop 12/14/16 at 02:14 ; Status DC Enalaprilat (Vasotec) 1.25 mg 1X ONCE IV Last administered on 12/13/16 02:37 ; Start 12/13/16 at 02:45; Stop 12/13/16 at 02:46; Status DC Nitroglycerin (Nitro-Bid Oint) 2 inch 1X ONCE TP Last administered on 03:09; Start 12/13/16 at 03:00; Stop 12/13/16 at 03:01; Status DC Aspirin (Children'S Aspirin) 324 mg 1X ONCE PO Last administered on 12/13/16 03:05; Start 12/13/16 at 03:00; Stop 12/13/16 at 03:01; Status DC Furosemide (Lasix) 40 mg 1X ONCE IVP Last administered on 12/13/16 03:59; Start 12/13/16 at 03:30; Stop 12/13/16 at 03:31; Status DC Ondansetron HCl (Zofran) 4 mg PRN Q8HRS PRN IV NAUSEA/VOMITING; Start 12/13/16 at 03:30; Stop 12/14/16 at 03:30; Status DC Acetaminophen (Tylenol) 650 mg 1X ONCE PO Last administered on 12/13/16 03:59 ; Start 12/13/16 at 03:45; Stop 12/13/16 at 03:46; Status DC Labetalol HCl (Normodyne) 20 mg PRN Q6HRS PRN IVP HYPERTENSION, SEE COMMENTS; Start 12/13/16 at 05:45 Insulin Detemir (Levemir) 36 units QHS SQ ; Start 12/13/16 at 21:00; Stop at 21:00; Status DC Insulin Aspart (NovoLOG) 0-7 UNITS TIDWMEALS SQ Last administered on 12/13/16 18:38; Start 12/13/16 at 08:00 Dextrose (Dextrose 50%-Water Syringe) 12.5 gm PRN Q15MIN PRN IV SEE COMMENTS; Start 12/13/16 at 05:45; Stop 12/13/16 at 08:38; Status DC Oxycodone/ Acetaminophen (Percocet 10/325) 1 tab PRN Q4HRS PRN PO PAIN Last administered on 12/13/16 09:17; Start 12/13/16 at 05:45; Stop 12/13/16 at 13:41 ; Status DC Amlodipine Besylate (Norvasc) 10 mg DAILY PO Last administered on 12/13/16 08: 59; Start 12/13/16 at 09:00 Atorvastatin Calcium (Lipitor) 40 mg DAILY PO Last administered on 12/13/16 09 :01; Start 12/13/16 at 09:00 Clonidine HCl (Catapres) 0.2 mg BID PO Last administered on 12/13/16 09:01; Start 12/13/16 at 09:00 Furosemide (Lasix) 40 mg DAILY PO Last administered on 12/13/16 08:58; Start 12/13/16 at 09:00; Stop 12/13/16 at 13:33; Status DC Hydralazine HCl (Apresoline) 100 mg Q8HRS PO Last administered on 12/13/16 15: 45; Start 12/13/16 at 14:00 Insulin Aspart (NovoLOG) 10 units TIDAC SQ Last administered on 12/13/16 18:36 ; Start 12/13/16 at 08:30 Oxycodone/ Acetaminophen (Percocet 10/325) 1 tab PRN Q4HRS PRN PO pain Last administered on 12/14/16 03:55; Start 12/13/16 at 08:30 Non-Formulary Medication 2 puff PRN Q4-6HRS IH ; Start 12/13/16 at 08:30; Stop 12/13/16 at 08:34; Status DC Carvedilol (Coreg) 25 mg BIDWMEALS PO Last administered on 12/13/16 18:33; Start 12/13/16 at 09:00 Glipizide (Glucotrol) 10 mg BIDBFRMEAL PO Last administered on 12/13/16 18:33 ; Start 12/13/16 at 09:00 Insulin Detemir (Levemir) 29 units QHS SQ Last administered on 12/13/16 21:13 ; Start 12/13/16 at 21:00 Pantoprazole Sodium (Protonix) 40 mg DAILYAC PO Last administered on 12/13/16 09:00; Start 12/13/16 at 09:00 Dextrose (Dextrose 50%-Water Syringe) 12.5 gm PRN Q15MIN PRN IV SEE COMMENTS; Start 12/13/16 at 08:30 Dextrose (Dextrose 50%-Water Syringe) 12.5 gm PRN Q15MIN PRN IV SEE COMMENTS; Start 12/13/16 at 08:30; Stop 12/13/16 at 08:39; Status DC Albuterol Sulfate (Ventolin Neb Soln) 2.5 mg PRN Q4HRS PRN NEB SHORTNESS OF BREATH Last administered on 12/13/16 20:52; Start 12/13/16 at 08:30 Furosemide (Lasix) 40 mg DAILY IVP ; Start 12/14/16 at 09:00; Stop 12/14/16 at 09: 00; Status DC Aspirin (Ecotrin) 81 mg DAILYWBKFT PO ; Start 12/14/16 at 08:00 Furosemide (Lasix) 40 mg 1X ONCE IVP Last administered on 12/13/16 15:45; Start 12/13/16 at 15:00; Stop 12/13/16 at 15:01; Status DC Potassium Chloride (Klor-Con) 20 meq DAILYWBKFT PO ; Start 12/14/16 at 08:00 Magnesium Sulfate/ Dextrose 50 ml @ 25 mls/hr 1X ONCE IV Last administered on 12/13/16 15:44; Start 12/13/16 at 15:00; Stop 12/13/16 at 16:59; Status DC Enoxaparin Sodium (Lovenox Per Pharmacy Prophylaxis Dosing) 1 each PRN DAILY PRN MC SEE COMMENTS; Start 12/13/16 at 22:00 Enoxaparin Sodium (Lovenox 40mg Syringe) 40 mg Q24H SQ Last administered on 22:15; Start 12/13/16 at 22:00 Active Scripts Active Doxycycline Hyclate 100 Mg Tablet 100 Mg PO BID Percocet 10-325 Mg Tablet (Oxycodone/Acetaminophen) 1 Each Tablet 1 Tab PO Q4- 6HRS Amlodipine Besylate 10 Mg Tablet 10 Mg PO DAILY Novolog Flexpen (Insulin Aspart) 100 Unit/1 Ml Insuln.pen 10 Units SQ TIDAC Hydralazine Hcl 50 Mg Tablet 100 Mg PO Q8HRS Furosemide 40 Mg Tablet 40 Mg PO DAILY Reported Wang Recinosostar (Insulin Glargine,Hum.rec.anlog) 300 Unit/1 Ml Insuln.pen 36 Unit SQ HS Atorvastatin Calcium 40 Mg Tablet 1 Tab PO DAILY Omeprazole 40 Mg Capsule.dr 1 Cap PO DAILY Ventolin Hfa Inhaler (Albuterol Sulfate) 18 Gm Hfa.aer.ad 2 Puff IH PRN Q4-6HRS Glipizide 10 Mg Tablet 1 Tab PO BIDAC Clonidine Hcl 0.2 Mg Tablet 1 Tab PO BID Coreg (Carvedilol) 25 Mg Tablet 1 Tab PO BID92 Allergies Allergies: Coded Allergies: No Known Drug Allergies (Unverified , 06/10/14) ROS Review of System GEN: no Fevers no Chills EYES: ? new Visual Complaints (occ blurry vision - now resolved) ENT: no EN Drainage no Hearing deficiets CVS: no Orthopnea no CP RESP: ? SOB occ MORLEY GI: no Nausea no Vomiting : no Dysuria no Urgency HEME: no easy bruising no Palp Ly Nodes NEURO no Focal Weakness no Sz PSYCH: no Suicidal Ideation no Depression SKIN: no Rashes ENDO: no Polyuria or Polydipsia no Hot/Cold Intolerance MU SK: occ Arthraigia no Myalgia Physical Exam Physical Exam General Appearance: Awake Alert Oriented x 3 In no Distress Eyes: VIsion Unchanged Conjunctiva Normal EN: No EN Drainage Mucous Memb. moist Neck: no JVD no JVP Supple no Thyromegaly; thick neck CVS: S1 S2 ? Murmur No Gallop No Rub tr Edema Resp: no Rales no Rhonchi no Acc. Muscle use; Dec AE in bases GI: BAS +ve NO Bruit Non Tender Non Distended - obese : no CVA tenderness; no Suprapubic Tenderness SKIN: no Rashes Breast Exam deferred Mu.Sk: Adequate ROM no Muscle Atrophy Heme: Unable to palpate Obvious LAD no palp Splenomegaly NEURO: Good Strength and Tone Cranial Nerves II - XII grossly intact Psych: ? Depressed no Active hallucination Vital Signs Vital Signs Date Time Temp Pulse Resp B/P (MAP) Pulse Ox O2 Delivery O2 Flow Rate FiO2 12/14/16 06:13 66 22 139/60 (86) 95 BiPAP/CPAP 12/14/16 04:00 98.3 2.0 98.3 Assessment & Plan CKD III : Current FLuid and E-lyte status does not necessitate emergent need for Dialysis. Will re-evaluate for Dialysis in am HypoAlbuminemia - suspect due to proteinuria Known Proteinuria - suspect duet o DM/HTn /NS - requantitate with ratio Anemia: (konwn Fe def in September) , ct PO FeSO4 hold Epogen; until BP are better controlled; Transfuse as needed. HTN: (? Renovascular) - ? NEed for DEVONTE Eval. ? Accel HTn with ? Urgecny due to lack of Clonidine. Current BP meds reviewed. See orders for changes. ? DEVONTE - If LHC is contemplated then Renal artery eval may be undertaken at the same time Discussed Plan of Care and prognosis etc. at length with pt and DR Foy Labs Labs Laboratory Tests Test 12/13/16 02:01 12/13/16 04:20 12/13/16 08:33 12/13/16 09:15 White Blood Count 11.7 x10^3/uL (4.0-11.0) Red Blood Count 3.60 x10^6/uL (3.50-5.40) Hemoglobin 9.5 g/dL (12.0-15.5) Hematocrit 30.8 % (36.0-47.0) Mean Corpuscular Volume 85 fL (79-100) Mean Corpuscular Hemoglobin 26 pg (25-35) Mean Corpuscular Hemoglobin Concent 31 g/dL (31-37) Red Cell Distribution Width 17.5 % (11.5-14.5) Platelet Count 319 x10^3/uL (140-400) Neutrophils (%) (Auto) 73 % (31-73) Lymphocytes (%) (Auto) 15 % (24-48) Monocytes (%) (Auto) 8 % (0-9) Eosinophils (%) (Auto) 3 % (0-3) Basophils (%) (Auto) 1 % (0-3) Neutrophils # (Auto) 8.5 x10^3uL (1.8-7.7) Lymphocytes # (Auto) 1.7 x10^3/uL (1.0-4.8) Monocytes # (Auto) 1.0 x10^3/uL (0.0-1.1) Eosinophils # (Auto) 0.4 x10^3/uL (0.0-0.7) Basophils # (Auto) 0.1 x10^3/uL (0.0-0.2) Sodium Level 143 mmol/L (136-145) Potassium Level 3.8 mmol/L (3.5-5.1) Chloride Level 105 mmol/L (98-107) Carbon Dioxide Level 29 mmol/L (21-32) Anion Gap 9 (6-14) Blood Urea Nitrogen 11 mg/dL (7-20) Creatinine 1.4 mg/dL (0.6-1.0) Estimated GFR (Cockcroft-Gault) 46.6 BUN/Creatinine Ratio 8 (6-20) Glucose Level 221 mg/dL (70-99) Hemoglobin A1c 7.7 % (4.8-5.6) Calcium Level 9.1 mg/dL (8.5-10.1) Total Bilirubin 0.2 mg/dL (0.2-1.0) Aspartate Amino Transf (AST/SGOT) 14 U/L (15-37) Alanine Aminotransferase (ALT/SGPT) 11 U/L (14-59) Alkaline Phosphatase 165 U/L (46-116) Troponin I Quantitative 0.164 ng/mL (0.000-0.055) 0.197 ng/mL (0.000-0.055) FZ-Mfh-Y-Type Natriuretic Peptide 7653 pg/mL (0-124) Total Protein 7.8 g/dL (6.4-8.2) Albumin 2.9 g/dL (3.4-5.0) Albumin/Globulin Ratio 0.6 (1.0-1.7) Nasal Screen MRSA (PCR) Negative (Negative) Glucose (Fingerstick) 171 mg/dL (70-99) Magnesium Level 1.6 mg/dL (1.8-2.4) Test 12/13/16 13:20 12/13/16 15:30 12/13/16 17:25 12/13/16 20:49 O2 Saturation 92 % (92-99) Arterial Blood pH 7.41 (7.35-7.45) Arterial Blood pCO2 at Patient Temp 48 mmHg (35-46) Arterial Blood pO2 at Patient Temp 66 mmHg (65-108) Arterial Blood HCO3 30 mmol/L (21-28) Arterial Blood Base Excess 4 mmol/L (-3-3) FiO2 35 Troponin I Quantitative 0.176 ng/mL (0.000-0.055) Glucose (Fingerstick) 188 mg/dL (70-99) 101 mg/dL (70-99) Test 12/14/16 03:40 12/14/16 08:28 White Blood Count 5.8 x10^3/uL (4.0-11.0) Red Blood Count 2.88 x10^6/uL (3.50-5.40) Hemoglobin 7.7 g/dL (12.0-15.5) Hematocrit 24.5 % (36.0-47.0) Mean Corpuscular Volume 85 fL (79-100) Mean Corpuscular Hemoglobin 27 pg (25-35) Mean Corpuscular Hemoglobin Concent 32 g/dL (31-37) Red Cell Distribution Width 17.5 % (11.5-14.5) Platelet Count 243 x10^3/uL (140-400) Neutrophils (%) (Auto) 55 % (31-73) Lymphocytes (%) (Auto) 24 % (24-48) Monocytes (%) (Auto) 12 % (0-9) Eosinophils (%) (Auto) 8 % (0-3) Basophils (%) (Auto) 1 % (0-3) Neutrophils # (Auto) 3.2 x10^3uL (1.8-7.7) Lymphocytes # (Auto) 1.4 x10^3/uL (1.0-4.8) Monocytes # (Auto) 0.7 x10^3/uL (0.0-1.1) Eosinophils # (Auto) 0.4 x10^3/uL (0.0-0.7) Basophils # (Auto) 0.1 x10^3/uL (0.0-0.2) Sodium Level 139 mmol/L (136-145) Potassium Level 4.0 mmol/L (3.5-5.1) Chloride Level 102 mmol/L (98-107) Carbon Dioxide Level 30 mmol/L (21-32) Anion Gap 7 (6-14) Blood Urea Nitrogen 16 mg/dL (7-20) Creatinine 1.9 mg/dL (0.6-1.0) Estimated GFR (Cockcroft-Gault) 32.7 BUN/Creatinine Ratio 8 (6-20) Glucose Level 211 mg/dL (70-99) Calcium Level 8.1 mg/dL (8.5-10.1) Total Bilirubin 0.1 mg/dL (0.2-1.0) Aspartate Amino Transf (AST/SGOT) 8 U/L (15-37) Alanine Aminotransferase (ALT/SGPT) 11 U/L (14-59) Alkaline Phosphatase 130 U/L (46-116) Total Protein 6.2 g/dL (6.4-8.2) Albumin 2.2 g/dL (3.4-5.0) Albumin/Globulin Ratio 0.6 (1.0-1.7) Glucose (Fingerstick) 114 mg/dL (70-99) Laboratory Tests Test 12/13/16 09:15 12/13/16 13:20 12/13/16 15:30 12/13/16 17:25 Magnesium Level 1.6 mg/dL (1.8-2.4) Troponin I Quantitative 0.197 ng/mL (0.000-0.055) 0.176 ng/mL (0.000-0.055) O2 Saturation 92 % (92-99) Arterial Blood pH 7.41 (7.35-7.45) Arterial Blood pCO2 at Patient Temp 48 mmHg (35-46) Arterial Blood pO2 at Patient Temp 66 mmHg (65-108) Arterial Blood HCO3 30 mmol/L (21-28) Arterial Blood Base Excess 4 mmol/L (-3-3) FiO2 35 Glucose (Fingerstick) 188 mg/dL (70-99) Test 12/13/16 20:49 12/14/16 03:40 12/14/16 08:28 Glucose (Fingerstick) 101 mg/dL (70-99) 114 mg/dL (70-99) White Blood Count 5.8 x10^3/uL (4.0-11.0) Red Blood Count 2.88 x10^6/uL (3.50-5.40) Hemoglobin 7.7 g/dL (12.0-15.5) Hematocrit 24.5 % (36.0-47.0) Mean Corpuscular Volume 85 fL (79-100) Mean Corpuscular Hemoglobin 27 pg (25-35) Mean Corpuscular Hemoglobin Concent 32 g/dL (31-37) Red Cell Distribution Width 17.5 % (11.5-14.5) Platelet Count 243 x10^3/uL (140-400) Neutrophils (%) (Auto) 55 % (31-73) Lymphocytes (%) (Auto) 24 % (24-48) Monocytes (%) (Auto) 12 % (0-9) Eosinophils (%) (Auto) 8 % (0-3) Basophils (%) (Auto) 1 % (0-3) Neutrophils # (Auto) 3.2 x10^3uL (1.8-7.7) Lymphocytes # (Auto) 1.4 x10^3/uL (1.0-4.8) Monocytes # (Auto) 0.7 x10^3/uL (0.0-1.1) Eosinophils # (Auto) 0.4 x10^3/uL (0.0-0.7) Basophils # (Auto) 0.1 x10^3/uL (0.0-0.2) Sodium Level 139 mmol/L (136-145) Potassium Level 4.0 mmol/L (3.5-5.1) Chloride Level 102 mmol/L (98-107) Carbon Dioxide Level 30 mmol/L (21-32) Anion Gap 7 (6-14) Blood Urea Nitrogen 16 mg/dL (7-20) Creatinine 1.9 mg/dL (0.6-1.0) Estimated GFR (Cockcroft-Gault) 32.7 BUN/Creatinine Ratio 8 (6-20) Glucose Level 211 mg/dL (70-99) Calcium Level 8.1 mg/dL (8.5-10.1) Total Bilirubin 0.1 mg/dL (0.2-1.0) Aspartate Amino Transf (AST/SGOT) 8 U/L (15-37) Alanine Aminotransferase (ALT/SGPT) 11 U/L (14-59) Alkaline Phosphatase 130 U/L (46-116) Total Protein 6.2 g/dL (6.4-8.2) Albumin 2.2 g/dL (3.4-5.0) Albumin/Globulin Ratio 0.6 (1.0-1.7) Images Images 1. Delayed perfusion and decreased function of the right kidney with split function: 37.3% right; 62.7% left. Correlate for renal artery stenosis on the right. 2. Delayed excretion from both kidneys without evidence of hydronephrosis. Correlate for a prerenal state or acute tubular necrosis. No evidence of fixed obstruction. CXR: Impression: Slight improvement in interstitial edema with persistent cardiomegaly and trace bilateral pleural effusions. RAFAEL VELIZ MD Dec 14, 2016 09:08
[2016-12-14] MEDS: ALBUTEROL SULFATE 2.5 MG/3 ML NEBU. NEB PRN (09:14)
--- NOTE | 2016-12-14 09:54 | CONS ---
DATE OF CONSULTATION: 12/14/2016 REASON FOR CONSULTATION: Renal insufficiency. HISTORY OF PRESENT ILLNESS: The patient is a pleasant 61-year-old -[place] female who was just recently admitted here to this facility. She claims that she did not have her clonidine and has been taking hydralazine and amlodipine alone at home. She is not a very reliable historian with regards to her medications. She apparently presented to the ER with complaints of acute shortness of breath. She required BiPAP. At that time, she was found to have a known underlying CHF. Chest x-ray did show mild CHF. Her previous echocardiograms have shown an EF of 55-60% with minimal valvular heart disease. She has been evaluated by Cardiology and Pulmonary to date. Based on pulmonary evaluation, she is felt to have [id number] diastolic heart failure. She denies fevers, chills, nausea, or vomiting at this time. Occasional cough, no phlegm, occasional visual problems. For rest of details, see electronic records. RAFAEL VELIZ MD DR: ISABELA/derik JOB#: [id number] / [id number]
[2016-12-14] MEDS: FERROUS SULFATE 325 MG TABLET. PO SCH ×2 (10:21→16:55)
[2016-12-14] MEDS: DOCUSATE SODIUM 100 MG CAPSULE. PO SCH (10:21)
[2016-12-14] MEDS: ENOXAPARIN 40 MG/0.4 ML SYRINGE. SQ SCH ×2 (10:23→20:26)
--- NOTE | 2016-12-14 11:15 | PDOC ---
CARDIO Progress Notes Date and Time Date of Service 12/14/2016 Time of Evaluation 1100 Subjective Subjective: No Chest Pain, No shortness of breath, No Palpitations, No Dizziness, Other (feels better today) Vitals Vitals Vital Signs Date Time Temp Pulse Resp B/P (MAP) Pulse Ox O2 Delivery O2 Flow Rate FiO2 12/14/16 10:22 Nasal Cannula 2.0 12/14/16 10:00 68 22 125/54 (77) 98 12/14/16 09:00 98.1 98.1 Weight Weight [ ] Input and Output Intake and Output Intake and Output 12/14/16 07:00 Intake Total 1217 ml Output Total 0 ml Balance 1217 ml Intake Oral 1000 ml Other 217 ml Output Urine Total 0 ml # Voids 4 Laboratory Labs Laboratory Tests Test 12/13/16 13:20 12/13/16 15:30 12/13/16 17:25 12/13/16 20:49 O2 Saturation 92 % (92-99) Arterial Blood pH 7.41 (7.35-7.45) Arterial Blood pCO2 at Patient Temp 48 mmHg (35-46) Arterial Blood pO2 at Patient Temp 66 mmHg (65-108) Arterial Blood HCO3 30 mmol/L (21-28) Arterial Blood Base Excess 4 mmol/L (-3-3) FiO2 35 Troponin I Quantitative 0.176 ng/mL (0.000-0.055) Glucose (Fingerstick) 188 mg/dL (70-99) 101 mg/dL (70-99) Test 12/14/16 03:40 12/14/16 08:28 White Blood Count 5.8 x10^3/uL (4.0-11.0) Red Blood Count 2.88 x10^6/uL (3.50-5.40) Hemoglobin 7.7 g/dL (12.0-15.5) Hematocrit 24.5 % (36.0-47.0) Mean Corpuscular Volume 85 fL (79-100) Mean Corpuscular Hemoglobin 27 pg (25-35) Mean Corpuscular Hemoglobin Concent 32 g/dL (31-37) Red Cell Distribution Width 17.5 % (11.5-14.5) Platelet Count 243 x10^3/uL (140-400) Neutrophils (%) (Auto) 55 % (31-73) Lymphocytes (%) (Auto) 24 % (24-48) Monocytes (%) (Auto) 12 % (0-9) Eosinophils (%) (Auto) 8 % (0-3) Basophils (%) (Auto) 1 % (0-3) Neutrophils # (Auto) 3.2 x10^3uL (1.8-7.7) Lymphocytes # (Auto) 1.4 x10^3/uL (1.0-4.8) Monocytes # (Auto) 0.7 x10^3/uL (0.0-1.1) Eosinophils # (Auto) 0.4 x10^3/uL (0.0-0.7) Basophils # (Auto) 0.1 x10^3/uL (0.0-0.2) Sodium Level 139 mmol/L (136-145) Potassium Level 4.0 mmol/L (3.5-5.1) Chloride Level 102 mmol/L (98-107) Carbon Dioxide Level 30 mmol/L (21-32) Anion Gap 7 (6-14) Blood Urea Nitrogen 16 mg/dL (7-20) Creatinine 1.9 mg/dL (0.6-1.0) Estimated GFR (Cockcroft-Gault) 32.7 BUN/Creatinine Ratio 8 (6-20) Glucose Level 211 mg/dL (70-99) Calcium Level 8.1 mg/dL (8.5-10.1) Total Bilirubin 0.1 mg/dL (0.2-1.0) Aspartate Amino Transf (AST/SGOT) 8 U/L (15-37) Alanine Aminotransferase (ALT/SGPT) 11 U/L (14-59) Alkaline Phosphatase 130 U/L (46-116) Total Protein 6.2 g/dL (6.4-8.2) Albumin 2.2 g/dL (3.4-5.0) Albumin/Globulin Ratio 0.6 (1.0-1.7) Glucose (Fingerstick) 114 mg/dL (70-99) Physical Exam HEENT: Neck Supple W Full Motion Chest: Symmetric LUNGS: Other (bibasilar crackles) Heart: S1S2, RRR (SR, no significant ectopies ), no murmurs Abdomen: Soft N/T, Other (morbid obesity) Extremities: No Calf Tenderness, Other (1+ bilateral LE pitting edema) Neurology: alert, oriented, follow commands Assessment Assessment 1. Malignant HTN: well controlled. possible noncompliance 2. Acute on chronic respiratory failure/COPD/PRAVEEN: much improved 3. Acute on chronic systolic/diastolic CHF: induced by above, appears compensated 4. Hypoxic encephalopathy: resolved 5. Elevated troponin: peaked at 0.197. Demand mediated as above factors 6. Hx of nonobstructive CAD with diffuse disease: [facility] 09/2015. CP free 7. CKD3 8. Hx of cocaine abuse, recently quit smoking 9. DM2/HLP 10. Anemia: Hgb 7.7 Recommendations 1. Drug screen pending. Presently doing well at O2 2 LPM. Bipap at HS per pulmonary 2. Continue bipap, pulmonary consult 3. I & O inaccurate. Strict I & O. PCXR. Likely restart lasix tomorrow unless transfusion is required today. 4. Continue with current regimen 5. Continue to encourage lifestyle modifications including abstinence to cocaine. [employer] Dec 14, 2016 11:15
[2016-12-14] MEDS ORDERED: DEXTROSE ORAL GEL 15 GM TUBE. ONE ×2 (11:40)
--- NOTE | 2016-12-14 13:06 | PDOC ---
PULMONARY PROGRESS NOTES Vitals Vital Signs Date Time Temp Pulse Resp B/P (MAP) Pulse Ox O2 Delivery O2 Flow Rate FiO2 12/14/16 12:07 Nasal Cannula 2.0 12/14/16 11:12 98.3 64 20 130/67 (88) 96 98.3 General: Alert, No acute distress HEENT: Other Lungs: Clear Cardiovascular: S1, S2 Abdomen: Soft, Non-tender Extremities: No Edema Labs Laboratory Tests Test 12/13/16 02:01 12/13/16 04:20 12/13/16 08:33 12/13/16 09:15 White Blood Count 11.7 x10^3/uL (4.0-11.0) Red Blood Count 3.60 x10^6/uL (3.50-5.40) Hemoglobin 9.5 g/dL (12.0-15.5) Hematocrit 30.8 % (36.0-47.0) Mean Corpuscular Volume 85 fL (79-100) Mean Corpuscular Hemoglobin 26 pg (25-35) Mean Corpuscular Hemoglobin Concent 31 g/dL (31-37) Red Cell Distribution Width 17.5 % (11.5-14.5) Platelet Count 319 x10^3/uL (140-400) Neutrophils (%) (Auto) 73 % (31-73) Lymphocytes (%) (Auto) 15 % (24-48) Monocytes (%) (Auto) 8 % (0-9) Eosinophils (%) (Auto) 3 % (0-3) Basophils (%) (Auto) 1 % (0-3) Neutrophils # (Auto) 8.5 x10^3uL (1.8-7.7) Lymphocytes # (Auto) 1.7 x10^3/uL (1.0-4.8) Monocytes # (Auto) 1.0 x10^3/uL (0.0-1.1) Eosinophils # (Auto) 0.4 x10^3/uL (0.0-0.7) Basophils # (Auto) 0.1 x10^3/uL (0.0-0.2) Sodium Level 143 mmol/L (136-145) Potassium Level 3.8 mmol/L (3.5-5.1) Chloride Level 105 mmol/L (98-107) Carbon Dioxide Level 29 mmol/L (21-32) Anion Gap 9 (6-14) Blood Urea Nitrogen 11 mg/dL (7-20) Creatinine 1.4 mg/dL (0.6-1.0) Estimated GFR (Cockcroft-Gault) 46.6 BUN/Creatinine Ratio 8 (6-20) Glucose Level 221 mg/dL (70-99) Hemoglobin A1c 7.7 % (4.8-5.6) Calcium Level 9.1 mg/dL (8.5-10.1) Total Bilirubin 0.2 mg/dL (0.2-1.0) Aspartate Amino Transf (AST/SGOT) 14 U/L (15-37) Alanine Aminotransferase (ALT/SGPT) 11 U/L (14-59) Alkaline Phosphatase 165 U/L (46-116) Troponin I Quantitative 0.164 ng/mL (0.000-0.055) 0.197 ng/mL (0.000-0.055) HG-[id number]-Type Natriuretic Peptide 7653 pg/mL (0-124) Total Protein 7.8 g/dL (6.4-8.2) Albumin 2.9 g/dL (3.4-5.0) Albumin/Globulin Ratio 0.6 (1.0-1.7) Nasal Screen MRSA (PCR) Negative (Negative) Glucose (Fingerstick) 171 mg/dL (70-99) Magnesium Level 1.6 mg/dL (1.8-2.4) Test 12/13/16 13:20 12/13/16 15:30 12/13/16 17:25 12/13/16 20:49 O2 Saturation 92 % (92-99) Arterial Blood pH 7.41 (7.35-7.45) Arterial Blood pCO2 at Patient Temp 48 mmHg (35-46) Arterial Blood pO2 at Patient Temp 66 mmHg (65-108) Arterial Blood HCO3 30 mmol/L (21-28) Arterial Blood Base Excess 4 mmol/L (-3-3) FiO2 35 Troponin I Quantitative 0.176 ng/mL (0.000-0.055) Glucose (Fingerstick) 188 mg/dL (70-99) 101 mg/dL (70-99) Test 12/14/16 03:40 12/14/16 08:28 12/14/16 11:23 12/14/16 11:25 White Blood Count 5.8 x10^3/uL (4.0-11.0) Red Blood Count 2.88 x10^6/uL (3.50-5.40) Hemoglobin 7.7 g/dL (12.0-15.5) Hematocrit 24.5 % (36.0-47.0) Mean Corpuscular Volume 85 fL (79-100) Mean Corpuscular Hemoglobin 27 pg (25-35) Mean Corpuscular Hemoglobin Concent 32 g/dL (31-37) Red Cell Distribution Width 17.5 % (11.5-14.5) Platelet Count 243 x10^3/uL (140-400) Neutrophils (%) (Auto) 55 % (31-73) Lymphocytes (%) (Auto) 24 % (24-48) Monocytes (%) (Auto) 12 % (0-9) Eosinophils (%) (Auto) 8 % (0-3) Basophils (%) (Auto) 1 % (0-3) Neutrophils # (Auto) 3.2 x10^3uL (1.8-7.7) Lymphocytes # (Auto) 1.4 x10^3/uL (1.0-4.8) Monocytes # (Auto) 0.7 x10^3/uL (0.0-1.1) Eosinophils # (Auto) 0.4 x10^3/uL (0.0-0.7) Basophils # (Auto) 0.1 x10^3/uL (0.0-0.2) Sodium Level 139 mmol/L (136-145) Potassium Level 4.0 mmol/L (3.5-5.1) Chloride Level 102 mmol/L (98-107) Carbon Dioxide Level 30 mmol/L (21-32) Anion Gap 7 (6-14) Blood Urea Nitrogen 16 mg/dL (7-20) Creatinine 1.9 mg/dL (0.6-1.0) Estimated GFR (Cockcroft-Gault) 32.7 BUN/Creatinine Ratio 8 (6-20) Glucose Level 211 mg/dL (70-99) Calcium Level 8.1 mg/dL (8.5-10.1) Magnesium Level 1.9 mg/dL (1.8-2.4) Total Bilirubin 0.1 mg/dL (0.2-1.0) Aspartate Amino Transf (AST/SGOT) 8 U/L (15-37) Alanine Aminotransferase (ALT/SGPT) 11 U/L (14-59) Alkaline Phosphatase 130 U/L (46-116) Total Protein 6.2 g/dL (6.4-8.2) Albumin 2.2 g/dL (3.4-5.0) Albumin/Globulin Ratio 0.6 (1.0-1.7) Glucose (Fingerstick) 114 mg/dL (70-99) 31 mg/dL (70-99) 29 mg/dL (70-99) Test 12/14/16 11:38 12/14/16 12:02 Glucose (Fingerstick) 36 mg/dL (70-99) 82 mg/dL (70-99) Laboratory Tests Test 12/13/16 13:20 12/13/16 15:30 12/13/16 17:25 12/13/16 20:49 O2 Saturation 92 % (92-99) Arterial Blood pH 7.41 (7.35-7.45) Arterial Blood pCO2 at Patient Temp 48 mmHg (35-46) Arterial Blood pO2 at Patient Temp 66 mmHg (65-108) Arterial Blood HCO3 30 mmol/L (21-28) Arterial Blood Base Excess 4 mmol/L (-3-3) FiO2 35 Troponin I Quantitative 0.176 ng/mL (0.000-0.055) Glucose (Fingerstick) 188 mg/dL (70-99) 101 mg/dL (70-99) Test 12/14/16 03:40 12/14/16 08:28 12/14/16 11:23 12/14/16 11:25 White Blood Count 5.8 x10^3/uL (4.0-11.0) Red Blood Count 2.88 x10^6/uL (3.50-5.40) Hemoglobin 7.7 g/dL (12.0-15.5) Hematocrit 24.5 % (36.0-47.0) Mean Corpuscular Volume 85 fL (79-100) Mean Corpuscular Hemoglobin 27 pg (25-35) Mean Corpuscular Hemoglobin Concent 32 g/dL (31-37) Red Cell Distribution Width 17.5 % (11.5-14.5) Platelet Count 243 x10^3/uL (140-400) Neutrophils (%) (Auto) 55 % (31-73) Lymphocytes (%) (Auto) 24 % (24-48) Monocytes (%) (Auto) 12 % (0-9) Eosinophils (%) (Auto) 8 % (0-3) Basophils (%) (Auto) 1 % (0-3) Neutrophils # (Auto) 3.2 x10^3uL (1.8-7.7) Lymphocytes # (Auto) 1.4 x10^3/uL (1.0-4.8) Monocytes # (Auto) 0.7 x10^3/uL (0.0-1.1) Eosinophils # (Auto) 0.4 x10^3/uL (0.0-0.7) Basophils # (Auto) 0.1 x10^3/uL (0.0-0.2) Sodium Level 139 mmol/L (136-145) Potassium Level 4.0 mmol/L (3.5-5.1) Chloride Level 102 mmol/L (98-107) Carbon Dioxide Level 30 mmol/L (21-32) Anion Gap 7 (6-14) Blood Urea Nitrogen 16 mg/dL (7-20) Creatinine 1.9 mg/dL (0.6-1.0) Estimated GFR (Cockcroft-Gault) 32.7 BUN/Creatinine Ratio 8 (6-20) Glucose Level 211 mg/dL (70-99) Calcium Level 8.1 mg/dL (8.5-10.1) Magnesium Level 1.9 mg/dL (1.8-2.4) Total Bilirubin 0.1 mg/dL (0.2-1.0) Aspartate Amino Transf (AST/SGOT) 8 U/L (15-37) Alanine Aminotransferase (ALT/SGPT) 11 U/L (14-59) Alkaline Phosphatase 130 U/L (46-116) Total Protein 6.2 g/dL (6.4-8.2) Albumin 2.2 g/dL (3.4-5.0) Albumin/Globulin Ratio 0.6 (1.0-1.7) Glucose (Fingerstick) 114 mg/dL (70-99) 31 mg/dL (70-99) 29 mg/dL (70-99) Test 12/14/16 11:38 12/14/16 12:02 Glucose (Fingerstick) 36 mg/dL (70-99) 82 mg/dL (70-99) Medications Active Scripts Medications Dose Route/Sig Max Daily Dose Days Date Category Doxycycline Hyclate 100 Mg Tablet 100 Mg PO BID 12/04/16 Rx Percocet 10-325 Mg Tablet (Oxycodone/Acetaminophen) 1 Each Tablet 1 Tab PO Q4-6HRS 12/04/16 Rx Toujeo Solostar (Insulin Glargine,Hum.rec.anlog) 300 Unit/1 Ml Insuln.pen 36 Unit SQ HS 10/10/16 Reported Amlodipine Besylate 10 Mg Tablet 10 Mg PO DAILY 09/27/15 Rx Novolog Flexpen (Insulin Aspart) 100 Unit/1 Ml Insuln.pen 10 Units SQ TIDAC 05/27/15 Rx Hydralazine Hcl 50 Mg Tablet 100 Mg PO Q8HRS 05/27/15 Rx Furosemide 40 Mg Tablet 40 Mg PO DAILY 05/27/15 Rx Atorvastatin Calcium 40 Mg Tablet 1 Tab PO DAILY 05/23/15 Reported Omeprazole 40 Mg Capsule.dr 1 Cap PO DAILY 05/23/15 Reported Ventolin Hfa Inhaler (Albuterol Sulfate) 18 Gm Hfa.aer.ad 2 Puff IH PRN Q4-6HRS 05/23/15 Reported Glipizide 10 Mg Tablet 1 Tab PO BIDAC 06/10/14 Reported Clonidine Hcl 0.2 Mg Tablet 1 Tab PO BID 06/10/14 Reported Coreg (Carvedilol) 25 Mg Tablet 1 Tab PO [id number] 06/10/14 Reported Impression . PT EXAMINED FULL NOTE DICTATED A/C RESP FAILURE A/C CHF THANKS DIMPLE ACOSTA MD Dec 14, 2016 13:06
[2016-12-14 13:41] LABS: BILIRUBIN,URINE NEGATIVE (NEG); GLUCOSE,URINE NEGATIVE (NEG); NITRITE,URINE NEGATIVE (NEG); PH,URINE 5.5; PROTEIN,URINE 100 mg/dL (NEG-TRACE); UROBILINOGEN,URINE 0.2 mg/dL (0.2 mg/dL)
[2016-12-14 13:46] LABS: BARBITURATES NEG (NEG); BENZODIAZEPINES POS (NEG); CANNABINOIDS NEG (NEG); COCAINE POS (NEG); METHADONE NEG (NEG); OPIATES POS (NEG); PHENCYCLIDINE NEG (NEG)
[2016-12-14 13:57] LABS: BACTERIA,URINE MODERATE /HPF (0-FEW); RBC,URINE 0 /HPF (0-2); SQUAMOUS EPITHELIAL CELL,UR MANY /LPF
--- NOTE | 2016-12-14 14:20 | RAD ---
Portable chest, 12/14/2016: History: Shortness of breath, congestive heart failure Comparison is made to a study from 12/13/2016. The heart is enlarged. The pulmonary vascularity is at the upper limits of normal. No pulmonary consolidation is seen. No definite pleural fluid is appreciated. IMPRESSION: Cardiomegaly with borderline vascular congestion.
[2016-12-14 15:32] LABS: HEMATOCRIT 27.7 % (36.0-47.0); HEMOGLOBIN 8.6 g/dL (12.0-15.5); RED BLOOD COUNT 3.23 x10^6/uL (3.50-5.40); RED CELL DISTRIBUTION WIDTH 17.3 % (11.5-14.5)
[2016-12-14 18:21] LABS: UR PROTEIN RD 114.1 mg/dL (Not Estab.)
[2016-12-14] MEDS: DICLOFENAC SODIUM 1% TOPICAL GEL 100GM TUBE. TP SCH (20:25)
[2016-12-14] MEDS: INSULIN DETEMIR 300 UNITS/3 ML INSULN.PEN. SQ SCH (20:34)
--- NOTE | 2016-12-14 23:44 | CONS ---
DATE OF CONSULTATION: 12/14/2016 I see her at the request of Dr. Damian. LOCATION: She is in room 504. ATTENDING PHYSICIAN: Dr. Damian. HISTORY OF PRESENT ILLNESS: This is a 61-year-old female admitted through the Emergency Room with acute shortness of breath. The patient with hypertension, with lower extremity edema and complaints of pain in her ankles, knees and lower back and left side of her neck. The patient uses oxygen on as needed basis. The patient with known congestive heart failure, hypertension, chronic obstructive pulmonary disease, anemia, anxiety, degenerative joint disease, diabetes mellitus, status post tonsillectomy. Family history of carcinoma and hypertension. She is not known allergic to any medication. She lives alone, had no stairs per her to manage. She usually walks using a cane. PHYSICAL EXAMINATION: Today revealed a middle-aged female. She is alert, oriented to time, place, person and circumstance and follows commands satisfactorily. Moves all 4 extremities voluntarily where she had 4+/5 grade muscle strength and deep tendon reflexes are decreased overall with absent knee and ankle jerks and she had equal perception of touch and pinprick sensation bilaterally. She had tenderness to palpation over left cervical paraspinal muscles extending over to upper trapezius over lumbar paraspinal muscles, sacroiliac joint area, trochanteric bursa, medial knee joint line and over both ankles, more so on the right side. She had some edema of her lower extremities. She had crepitus on range of motion of both knee joints with some laxity of knee joint collateral ligaments. She had pain on range of motion of her lumbar spine and both ankles. Straight leg raising test is negative bilaterally. She is independent with bed mobility and transfers and walking using a roller walker. I did not see any loss of balance while walking with a walker. Her skin is intact at this time. ASSESSMENT: A middle-aged female with known hypertension, congestive heart failure, chronic obstructive pulmonary disease, anemia, anxiety, degenerative joint disease and diabetes mellitus, admitted with increased shortness of breath. She presents with left cervical paraspinal and upper trapezius muscle strain without any clinical evidence of cervical radiculopathy, chronic lower back pain from degenerative disk disease of lumbar vertebrae without any clinical evidence of ongoing lumbar radiculopathy, but also presents with bilateral trochanteric bursitis, painful degenerative joint disease of both knees and degenerative joint disease with associated tendinitis of both ankles, right side more than left side, clinical evidence of peripheral neuropathy and obesity. RECOMMENDATIONS: To try her with a Cam boot to support her ankles, to consider injecting painful knees, trochanteric bursa and sacroiliac joint area on as needed basis. Dr. Damian, I appreciate asking me to participate in the care of this interesting patient. I will be glad to follow her with you as needed for her rehabilitation. SATISH CATES MD DR: HEMALATHA/derik JOB#: [id number] / [id number]
[2016-12-15 02:59] VITALS: BP 132/67
[2016-12-15 04:46] LABS: BASO # 0.1 x10^3/uL (0.0-0.2); BASO % 1 % (0-3); EOS % 8 % (0-3); HEMATOCRIT 24.4 % (36.0-47.0); HEMOGLOBIN 7.6 g/dL (12.0-15.5); LYMPH # 1.4 x10^3/uL (1.0-4.8); LYMPH % 27 % (24-48); MEAN CORPUSCULAR HEMOGLOBIN 27 pg (25-35); MEAN CORPUSCULAR HGB CONC 31 g/dL (31-37); MEAN CORPUSCULAR VOLUME 86 fL (79-100); MONO % 15 % (0-9); NEUT % 49 % (31-73); PLATELET COUNT 250 x10^3/uL (140-400); RED BLOOD COUNT 2.84 x10^6/uL (3.50-5.40); RED CELL DISTRIBUTION WIDTH 17.1 % (11.5-14.5); WHITE BLOOD COUNT 5.2 x10^3/uL (4.0-11.0)
[2016-12-15 04:57] LABS: ALBUMIN 2.3 g/dL (3.4-5.0); CALCIUM 7.7 mg/dL (8.5-10.1); CREATININE 2.2 mg/dL (0.6-1.0); GFR 27.6; PHOSPHORUS 4.4 mg/dL (2.6-4.7); POTASSIUM 4.6 mmol/L (3.5-5.1)
[2016-12-15 07:00] VITALS: BP 128/62
[2016-12-15] MEDS: INSULIN ASPART 300 UNITS/3 ML INSULN.PEN SQ SCH ×4 (07:30→11:42)
[2016-12-15] MEDS: DICLOFENAC SODIUM 1% TOPICAL GEL 100GM TUBE. TP SCH (08:05)
[2016-12-15] MEDS: cloNIDine HCL 0.2 MG TABLET PO SCH (08:06)
[2016-12-15] MEDS: ATORVASTATIN CALCIUM 40 MG TABLET. PO SCH (08:06)
[2016-12-15] MEDS: DOCUSATE SODIUM 100 MG CAPSULE. PO SCH (08:06)
[2016-12-15] MEDS: glipiZIDE 5 MG TABLET PO SCH (08:07)
[2016-12-15] MEDS: oxyCODONE/APAP 10/325 1 TAB TABLET PO PRN ×2 (08:07→13:06)
[2016-12-15] MEDS: ASPIRIN ENTERIC COATED 81 MG TABLET.DR. PO SCH (08:07)
[2016-12-15] MEDS: PANTOPRAZOLE 40 MG TABLET.DR. PO SCH (08:07)
[2016-12-15] MEDS: FERROUS SULFATE 325 MG TABLET. PO SCH (08:07)
[2016-12-15] MEDS: amLODIPine BESYLATE 10 MG TABLET PO SCH (08:07)
[2016-12-15] MEDS: CARVEDILOL 12.5 MG TABLET. PO SCH (08:08)
[2016-12-15] MEDS: ENOXAPARIN 40 MG/0.4 ML SYRINGE. SQ SCH (08:20)
--- NOTE | 2016-12-15 10:16 | PDOC ---
PROGRESS NOTES Subjective Subjective No new complaints. 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 I have ordered cam walker boots to help with her ankle pain but she felt uncomfortable to use heavy boots. I spoke to crust sorter and he will try her with light weight ankle braces.She is still hesitant about injections to her hips,knees and low back area. Assessment Assessment Problems Medical Problems: (1) Congestive heart failure (CHF) Status: Acute (2) Elevated troponin Status: Acute (3) Hypertensive emergency Status: Acute Plan [facility] when medically stable with out patient follow up. Comment Review of Relevant I have reviewed the following items jessee (where applicable) has been applied. Labs Laboratory Tests Test 12/13/16 13:20 12/13/16 15:30 12/13/16 17:25 12/13/16 20:49 O2 Saturation 92 % (92-99) Arterial Blood pH 7.41 (7.35-7.45) Arterial Blood pCO2 at Patient Temp 48 mmHg (35-46) Arterial Blood pO2 at Patient Temp 66 mmHg (65-108) Arterial Blood HCO3 30 mmol/L (21-28) Arterial Blood Base Excess 4 mmol/L (-3-3) FiO2 35 Troponin I Quantitative 0.176 ng/mL (0.000-0.055) Glucose (Fingerstick) 188 mg/dL (70-99) 101 mg/dL (70-99) Test 12/14/16 03:40 12/14/16 08:28 12/14/16 11:23 12/14/16 11:25 White Blood Count 5.8 x10^3/uL (4.0-11.0) Red Blood Count 2.88 x10^6/uL (3.50-5.40) Hemoglobin 7.7 g/dL (12.0-15.5) Hematocrit 24.5 % (36.0-47.0) Mean Corpuscular Volume 85 fL (79-100) Mean Corpuscular Hemoglobin 27 pg (25-35) Mean Corpuscular Hemoglobin Concent 32 g/dL (31-37) Red Cell Distribution Width 17.5 % (11.5-14.5) Platelet Count 243 x10^3/uL (140-400) Neutrophils (%) (Auto) 55 % (31-73) Lymphocytes (%) (Auto) 24 % (24-48) Monocytes (%) (Auto) 12 % (0-9) Eosinophils (%) (Auto) 8 % (0-3) Basophils (%) (Auto) 1 % (0-3) Neutrophils # (Auto) 3.2 x10^3uL (1.8-7.7) Lymphocytes # (Auto) 1.4 x10^3/uL (1.0-4.8) Monocytes # (Auto) 0.7 x10^3/uL (0.0-1.1) Eosinophils # (Auto) 0.4 x10^3/uL (0.0-0.7) Basophils # (Auto) 0.1 x10^3/uL (0.0-0.2) Sodium Level 139 mmol/L (136-145) Potassium Level 4.0 mmol/L (3.5-5.1) Chloride Level 102 mmol/L (98-107) Carbon Dioxide Level 30 mmol/L (21-32) Anion Gap 7 (6-14) Blood Urea Nitrogen 16 mg/dL (7-20) Creatinine 1.9 mg/dL (0.6-1.0) Estimated GFR (Cockcroft-Gault) 32.7 BUN/Creatinine Ratio 8 (6-20) Glucose Level 211 mg/dL (70-99) Calcium Level 8.1 mg/dL (8.5-10.1) Magnesium Level 1.9 mg/dL (1.8-2.4) Total Bilirubin 0.1 mg/dL (0.2-1.0) Aspartate Amino Transf (AST/SGOT) 8 U/L (15-37) Alanine Aminotransferase (ALT/SGPT) 11 U/L (14-59) Alkaline Phosphatase 130 U/L (46-116) Total Protein 6.2 g/dL (6.4-8.2) Albumin 2.2 g/dL (3.4-5.0) Albumin/Globulin Ratio 0.6 (1.0-1.7) Prealbumin 15 mg/dL (10-36) Glucose (Fingerstick) 114 mg/dL (70-99) 31 mg/dL (70-99) 29 mg/dL (70-99) Test 12/14/16 11:38 12/14/16 12:02 12/14/16 13:30 12/14/16 15:25 Glucose (Fingerstick) 36 mg/dL (70-99) 82 mg/dL (70-99) 110 mg/dL (70-99) Urine Collection Type Unknown Urine Color Yellow Urine Clarity Hazy Urine pH 5.5 Urine Specific [place] 1.015 Urine Protein 114.1 mg/dL (Not Estab.) Urine Glucose (UA) Negative mg/dL (NEG) Urine Ketones (Stick) Negative mg/dL (NEG) Urine Blood Negative (NEG) Urine Nitrite Negative (NEG) Urine Bilirubin Negative (NEG) Urine Urobilinogen Dipstick 0.2 mg/dL (0.2 mg/dL) Urine Leukocyte Esterase Trace (NEG) Urine RBC 0 /HPF (0-2) Urine WBC 1-4 /HPF (0-4) Urine Squamous Epithelial Cells Many /LPF Urine Bacteria Moderate /HPF (0-FEW) Urine Hyaline Casts Few /HPF Urine Creatinine 153.2 mg/dL (Not Estab.) Urine Protein/Creatinine Ratio 745 mg/g creat (0-200) Urine Opiates Screen Pos (NEG) Urine Methadone Screen Neg (NEG) Urine Barbiturates Neg (NEG) Urine Phencyclidine Screen Neg (NEG) Urine Amphetamine/Methamphetamine Neg (NEG) Urine Benzodiazepines Screen Pos (NEG) Urine Cocaine Screen Pos (NEG) Urine Cannabinoids Screen Neg (NEG) Urine Ethyl Alcohol Neg (NEG) White Blood Count 6.0 x10^3/uL (4.0-11.0) Red Blood Count 3.23 x10^6/uL (3.50-5.40) Hemoglobin 8.6 g/dL (12.0-15.5) Hematocrit 27.7 % (36.0-47.0) Mean Corpuscular Volume 86 fL (79-100) Mean Corpuscular Hemoglobin 27 pg (25-35) Mean Corpuscular Hemoglobin Concent 31 g/dL (31-37) Red Cell Distribution Width 17.3 % (11.5-14.5) Platelet Count 272 x10^3/uL (140-400) Test 12/14/16 16:18 12/14/16 19:49 12/15/16 02:45 12/15/16 08:04 Glucose (Fingerstick) 184 mg/dL (70-99) 168 mg/dL (70-99) 95 mg/dL (70-99) White Blood Count 5.2 x10^3/uL (4.0-11.0) Red Blood Count 2.84 x10^6/uL (3.50-5.40) Hemoglobin 7.6 g/dL (12.0-15.5) Hematocrit 24.4 % (36.0-47.0) Mean Corpuscular Volume 86 fL (79-100) Mean Corpuscular Hemoglobin 27 pg (25-35) Mean Corpuscular Hemoglobin Concent 31 g/dL (31-37) Red Cell Distribution Width 17.1 % (11.5-14.5) Platelet Count 250 x10^3/uL (140-400) Neutrophils (%) (Auto) 49 % (31-73) Lymphocytes (%) (Auto) 27 % (24-48) Monocytes (%) (Auto) 15 % (0-9) Eosinophils (%) (Auto) 8 % (0-3) Basophils (%) (Auto) 1 % (0-3) Neutrophils # (Auto) 2.6 x10^3uL (1.8-7.7) Lymphocytes # (Auto) 1.4 x10^3/uL (1.0-4.8) Monocytes # (Auto) 0.8 x10^3/uL (0.0-1.1) Eosinophils # (Auto) 0.4 x10^3/uL (0.0-0.7) Basophils # (Auto) 0.1 x10^3/uL (0.0-0.2) Sodium Level 140 mmol/L (136-145) Potassium Level 4.6 mmol/L (3.5-5.1) Chloride Level 104 mmol/L (98-107) Carbon Dioxide Level 31 mmol/L (21-32) Anion Gap 5 (6-14) Blood Urea Nitrogen 23 mg/dL (7-20) Creatinine 2.2 mg/dL (0.6-1.0) Estimated GFR (Cockcroft-Gault) 27.6 Glucose Level 156 mg/dL (70-99) Calcium Level 7.7 mg/dL (8.5-10.1) Phosphorus Level 4.4 mg/dL (2.6-4.7) Magnesium Level 2.0 mg/dL (1.8-2.4) Albumin 2.3 g/dL (3.4-5.0) Laboratory Tests Test 12/14/16 11:23 12/14/16 11:25 12/14/16 11:38 12/14/16 12:02 Glucose (Fingerstick) 31 mg/dL (70-99) 29 mg/dL (70-99) 36 mg/dL (70-99) 82 mg/dL (70-99) Test 12/14/16 13:30 12/14/16 15:25 12/14/16 16:18 12/14/16 19:49 Urine Collection Type Unknown Urine Color Yellow Urine Clarity Hazy Urine pH 5.5 Urine Specific [place] 1.015 Urine Protein 114.1 mg/dL (Not Estab.) Urine Glucose (UA) Negative mg/dL (NEG) Urine Ketones (Stick) Negative mg/dL (NEG) Urine Blood Negative (NEG) Urine Nitrite Negative (NEG) Urine Bilirubin Negative (NEG) Urine Urobilinogen Dipstick 0.2 mg/dL (0.2 mg/dL) Urine Leukocyte Esterase Trace (NEG) Urine RBC 0 /HPF (0-2) Urine WBC 1-4 /HPF (0-4) Urine Squamous Epithelial Cells Many /LPF Urine Bacteria Moderate /HPF (0-FEW) Urine Hyaline Casts Few /HPF Urine Creatinine 153.2 mg/dL (Not Estab.) Urine Protein/Creatinine Ratio 745 mg/g creat (0-200) Glucose (Fingerstick) 110 mg/dL (70-99) 184 mg/dL (70-99) 168 mg/dL (70-99) Urine Opiates Screen Pos (NEG) Urine Methadone Screen Neg (NEG) Urine Barbiturates Neg (NEG) Urine Phencyclidine Screen Neg (NEG) Urine Amphetamine/Methamphetamine Neg (NEG) Urine Benzodiazepines Screen Pos (NEG) Urine Cocaine Screen Pos (NEG) Urine Cannabinoids Screen Neg (NEG) Urine Ethyl Alcohol Neg (NEG) White Blood Count 6.0 x10^3/uL (4.0-11.0) Red Blood Count 3.23 x10^6/uL (3.50-5.40) Hemoglobin 8.6 g/dL (12.0-15.5) Hematocrit 27.7 % (36.0-47.0) Mean Corpuscular Volume 86 fL (79-100) Mean Corpuscular Hemoglobin 27 pg (25-35) Mean Corpuscular Hemoglobin Concent 31 g/dL (31-37) Red Cell Distribution Width 17.3 % (11.5-14.5) Platelet Count 272 x10^3/uL (140-400) Test 12/15/16 02:45 12/15/16 08:04 White Blood Count 5.2 x10^3/uL (4.0-11.0) Red Blood Count 2.84 x10^6/uL (3.50-5.40) Hemoglobin 7.6 g/dL (12.0-15.5) Hematocrit 24.4 % (36.0-47.0) Mean Corpuscular Volume 86 fL (79-100) Mean Corpuscular Hemoglobin 27 pg (25-35) Mean Corpuscular Hemoglobin Concent 31 g/dL (31-37) Red Cell Distribution Width 17.1 % (11.5-14.5) Platelet Count 250 x10^3/uL (140-400) Neutrophils (%) (Auto) 49 % (31-73) Lymphocytes (%) (Auto) 27 % (24-48) Monocytes (%) (Auto) 15 % (0-9) Eosinophils (%) (Auto) 8 % (0-3) Basophils (%) (Auto) 1 % (0-3) Neutrophils # (Auto) 2.6 x10^3uL (1.8-7.7) Lymphocytes # (Auto) 1.4 x10^3/uL (1.0-4.8) Monocytes # (Auto) 0.8 x10^3/uL (0.0-1.1) Eosinophils # (Auto) 0.4 x10^3/uL (0.0-0.7) Basophils # (Auto) 0.1 x10^3/uL (0.0-0.2) Sodium Level 140 mmol/L (136-145) Potassium Level 4.6 mmol/L (3.5-5.1) Chloride Level 104 mmol/L (98-107) Carbon Dioxide Level 31 mmol/L (21-32) Anion Gap 5 (6-14) Blood Urea Nitrogen 23 mg/dL (7-20) Creatinine 2.2 mg/dL (0.6-1.0) Estimated GFR (Cockcroft-Gault) 27.6 Glucose Level 156 mg/dL (70-99) Calcium Level 7.7 mg/dL (8.5-10.1) Phosphorus Level 4.4 mg/dL (2.6-4.7) Magnesium Level 2.0 mg/dL (1.8-2.4) Albumin 2.3 g/dL (3.4-5.0) Glucose (Fingerstick) 95 mg/dL (70-99) Medications Current Medications Nitroglycerin (Nitrostat) 0.4 mg PRN Q5MIN PRN SL CP RATING > 1/10 Last administered on 12/13/16 02:23; Start 12/13/16 at 02:15; Stop 12/14/16 at 02:14 ; Status DC Enalaprilat (Vasotec) 1.25 mg 1X ONCE IV Last administered on 12/13/16 02:37 ; Start 12/13/16 at 02:45; Stop 12/13/16 at 02:46; Status DC Nitroglycerin (Nitro-Bid Oint) 2 inch 1X ONCE TP Last administered on 03:09; Start 12/13/16 at 03:00; Stop 12/13/16 at 03:01; Status DC Aspirin (Children'S Aspirin) 324 mg 1X ONCE PO Last administered on 12/13/16 03:05; Start 12/13/16 at 03:00; Stop 12/13/16 at 03:01; Status DC Furosemide (Lasix) 40 mg 1X ONCE IVP Last administered on 12/13/16 03:59; Start 12/13/16 at 03:30; Stop 12/13/16 at 03:31; Status DC Ondansetron HCl (Zofran) 4 mg PRN Q8HRS PRN IV NAUSEA/VOMITING; Start 12/13/16 at 03:30; Stop 12/14/16 at 03:30; Status DC Acetaminophen (Tylenol) 650 mg 1X ONCE PO Last administered on 12/13/16 03:59 ; Start 12/13/16 at 03:45; Stop 12/13/16 at 03:46; Status DC Labetalol HCl (Normodyne) 20 mg PRN Q6HRS PRN IVP HYPERTENSION, SEE COMMENTS; Start 12/13/16 at 05:45 Insulin Detemir (Levemir) 36 units QHS SQ ; Start 12/13/16 at 21:00; Stop at 21:00; Status DC Insulin Aspart (NovoLOG) 0-7 UNITS TIDWMEALS SQ Last administered on 12/14/16 17:28; Start 12/13/16 at 08:00 Dextrose (Dextrose 50%-Water Syringe) 12.5 gm PRN Q15MIN PRN IV SEE COMMENTS; Start 12/13/16 at 05:45; Stop 12/13/16 at 08:38; Status DC Oxycodone/ Acetaminophen (Percocet 10/325) 1 tab PRN Q4HRS PRN PO PAIN Last administered on 12/13/16 09:17; Start 12/13/16 at 05:45; Stop 12/13/16 at 13:41 ; Status DC Amlodipine Besylate (Norvasc) 10 mg DAILY PO Last administered on 12/15/16 08: 07; Start 12/13/16 at 09:00 Atorvastatin Calcium (Lipitor) 40 mg DAILY PO Last administered on 12/15/16 08: 06; Start 12/13/16 at 09:00 Clonidine HCl (Catapres) 0.2 mg BID PO Last administered on 12/15/16 08:06; Start 12/13/16 at 09:00 Furosemide (Lasix) 40 mg DAILY PO Last administered on 12/13/16 08:58; Start 12/13/16 at 09:00; Stop 12/13/16 at 13:33; Status DC Hydralazine HCl (Apresoline) 100 mg Q8HRS PO Last administered on 12/15/16 05: 57; Start 12/13/16 at 14:00 Insulin Aspart (NovoLOG) 10 units TIDAC SQ Last administered on 12/14/16 09:07 ; Start 12/13/16 at 08:30 Oxycodone/ Acetaminophen (Percocet 10/325) 1 tab PRN Q4HRS PRN PO pain Last administered on 12/15/16 08:07; Start 12/13/16 at 08:30 Non-Formulary Medication 2 puff PRN Q4-6HRS IH ; Start 12/13/16 at 08:30; Stop 12/13/16 at 08:34; Status DC Carvedilol (Coreg) 25 mg BIDWMEALS PO Last administered on 12/15/16 08:08; Start 12/13/16 at 09:00 Glipizide (Glucotrol) 10 mg BIDBFRMEAL PO Last administered on 12/15/16 08:07; Start 12/13/16 at 09:00 Insulin Detemir (Levemir) 29 units QHS SQ Last administered on 12/14/16 20:34; Start 12/13/16 at 21:00 Pantoprazole Sodium (Protonix) 40 mg DAILYAC PO Last administered on 12/15/16 08:07; Start 12/13/16 at 09:00 Dextrose (Dextrose 50%-Water Syringe) 12.5 gm PRN Q15MIN PRN IV SEE COMMENTS; Start 12/13/16 at 08:30 Dextrose (Dextrose 50%-Water Syringe) 12.5 gm PRN Q15MIN PRN IV SEE COMMENTS; Start 12/13/16 at 08:30; Stop 12/13/16 at 08:39; Status DC Albuterol Sulfate (Ventolin Neb Soln) 2.5 mg PRN Q4HRS PRN NEB SHORTNESS OF BREATH Last administered on 12/14/16 09:14; Start 12/13/16 at 08:30 Furosemide (Lasix) 40 mg DAILY IVP ; Start 12/14/16 at 09:00; Stop 12/14/16 at 09: 00; Status DC Aspirin (Ecotrin) 81 mg DAILYWBKFT PO Last administered on 12/15/16 08:07; Start 12/14/16 at 08:00 Furosemide (Lasix) 40 mg 1X ONCE IVP Last administered on 12/13/16 15:45; Start 12/13/16 at 15:00; Stop 12/13/16 at 15:01; Status DC Potassium Chloride (Klor-Con) 20 meq DAILYWBKFT PO Last administered on 09:02; Start 12/14/16 at 08:00; Stop 12/14/16 at 09:07; Status DC Magnesium Sulfate/ Dextrose 50 ml @ 25 mls/hr 1X ONCE IV Last administered on 12/13/16 15:44; Start 12/13/16 at 15:00; Stop 12/13/16 at 16:59; Status DC Enoxaparin Sodium (Lovenox Per Pharmacy Prophylaxis Dosing) 1 each PRN DAILY PRN MC SEE COMMENTS; Start 12/13/16 at 22:00 Enoxaparin Sodium (Lovenox 40mg Syringe) 40 mg Q24H SQ Last administered on 22:15; Start 12/13/16 at 22:00; Stop 12/14/16 at 10:08; Status DC Magnesium Sulfate/ Dextrose 50 ml @ 25 mls/hr PRN DAILY PRN IV for Mag < 1.7 on am labs; Start 12/14/16 at 09:00 Ferrous Sulfate (Feosol) 325 mg BIDWMEALS PO Last administered on 12/15/16 08: 07; Start 12/14/16 at 09:00 Docusate Sodium (Colace) 100 mg DAILY PO Last administered on 12/15/16 08:06; Start 12/14/16 at 09:00 Enoxaparin Sodium (Lovenox 40mg Syringe) 40 mg Q12HR SQ Last administered on 20:26; Start 12/14/16 at 11:00 Glucose (Insta-Glucose) 15 gm STK-MED ONCE .ROUTE ; Start 12/14/16 at 11:40; Stop 12/14/16 at 11:41; Status DC Diclofenac Sodium (Voltaren) 1 jil BID TP Last administered on 12/15/16 08:05; Start 12/14/16 at 21:00 Glucose (Insta-Glucose) 15 gm STK-MED ONCE .ROUTE ; Start 12/14/16 at 11:40; Stop 12/15/16 at 08:43; Status DC Active Scripts Active Doxycycline Hyclate 100 Mg Tablet 100 Mg PO BID Percocet 10-325 Mg Tablet (Oxycodone/Acetaminophen) 1 Each Tablet 1 Tab PO Q4- 6HRS Amlodipine Besylate 10 Mg Tablet 10 Mg PO DAILY Novolog Flexpen (Insulin Aspart) 100 Unit/1 Ml Insuln.pen 10 Units SQ TIDAC Hydralazine Hcl 50 Mg Tablet 100 Mg PO Q8HRS Furosemide 40 Mg Tablet 40 Mg PO DAILY Reported Wang Hummel (Insulin Glargine,Hum.rec.anlog) 300 Unit/1 Ml Insuln.pen 36 Unit SQ HS Atorvastatin Calcium 40 Mg Tablet 1 Tab PO DAILY Omeprazole 40 Mg Capsule.dr 1 Cap PO DAILY Ventolin Hfa Inhaler (Albuterol Sulfate) 18 Gm Hfa.aer.ad 2 Puff IH PRN Q4-6HRS Glipizide 10 Mg Tablet 1 Tab PO BIDAC Clonidine Hcl 0.2 Mg Tablet 1 Tab PO BID Coreg (Carvedilol) 25 Mg Tablet 1 Tab PO BID92 Vitals/I & O Vital Sign - Last 24 Hours 12/14/16 12/14/16 12/14/16 12/14/16 10:22 11:12 12:07 13:27 Temp 98.3 98.3 Pulse 64 Resp 20 B/P (MAP) 130/67 (88) 93/55 Pulse Ox 96 O2 Delivery Nasal Cannula Nasal Cannula Nasal Cannula O2 Flow Rate 2.0 2.0 2.0 12/14/16 12/14/16 12/14/16 12/14/16 14:30 16:33 19:00 20:00 Temp 98.3 98.9 98.3 98.9 Pulse 67 78 Resp 20 16 B/P (MAP) 114/58 (76) 138/80 (99) Pulse Ox 100 93 O2 Delivery Nasal Cannula Nasal Cannula Room Air Nasal Cannula O2 Flow Rate 2.0 2.0 2.0 12/14/16 12/14/16 12/14/16 12/14/16 20:23 20:25 21:49 22:36 Temp 98.9 98.9 Pulse 78 78 73 Resp 22 B/P (MAP) 138/80 138/80 128/62 (84) Pulse Ox 96 92 O2 Delivery Nasal Cannula Room Air O2 Flow Rate 2.0 12/14/16 12/14/16 12/15/16/2/17 22:49 23:50 02:59 05:57 Temp 98.5 98.5 Pulse 89 70 Resp 22 B/P (MAP) 132/67 (88) 140/70 Pulse Ox 95 95 O2 Delivery BiPAP/CPAP Nasal Cannula O2 Flow Rate 2.0 2.0 12/15/16 12/15/16 12/15/16 12/15/16 07:00 08:00 08:06 08:07 Temp 98.6 98.6 Pulse 69 69 69 Resp 14 B/P (MAP) 128/62 (84) 128/62 128/62 Pulse Ox 96 O2 Delivery Nasal Cannula Nasal Cannula O2 Flow Rate 2.0 2.0 12/15/16 12/15/16 12/15/16 08:07 08:08 09:09 Pulse 69 B/P (MAP) 128/62 O2 Delivery Room Air Room Air Intake and Output 12/14/16 12/14/16 12/15/16 15:00 23:00 07:00 Intake Total 360 ml 730 ml 420 ml Output Total 150 ml Balance 360 ml 730 ml 270 ml SATISH CATES MD Dec 15, 2016 10:16
--- NOTE | 2016-12-15 10:18 | PDOC ---
PULMONARY PROGRESS NOTES Vitals Vital Signs Date Time Temp Pulse Resp B/P (MAP) Pulse Ox O2 Delivery O2 Flow Rate FiO2 12/15/16 09:09 Room Air 12/15/16 08:08 69 128/62 12/15/16 08:00 2.0 12/15/16 07:00 98.6 14 96 98.6 General: Alert, No acute distress HEENT: Other Lungs: Clear Cardiovascular: S1, S2 Abdomen: Soft, Non-tender Extremities: No Edema Labs Laboratory Tests Test 12/13/16 13:20 12/13/16 15:30 12/13/16 17:25 12/13/16 20:49 O2 Saturation 92 % (92-99) Arterial Blood pH 7.41 (7.35-7.45) Arterial Blood pCO2 at Patient Temp 48 mmHg (35-46) Arterial Blood pO2 at Patient Temp 66 mmHg (65-108) Arterial Blood HCO3 30 mmol/L (21-28) Arterial Blood Base Excess 4 mmol/L (-3-3) FiO2 35 Troponin I Quantitative 0.176 ng/mL (0.000-0.055) Glucose (Fingerstick) 188 mg/dL (70-99) 101 mg/dL (70-99) Test 12/14/16 03:40 12/14/16 08:28 12/14/16 11:23 12/14/16 11:25 White Blood Count 5.8 x10^3/uL (4.0-11.0) Red Blood Count 2.88 x10^6/uL (3.50-5.40) Hemoglobin 7.7 g/dL (12.0-15.5) Hematocrit 24.5 % (36.0-47.0) Mean Corpuscular Volume 85 fL (79-100) Mean Corpuscular Hemoglobin 27 pg (25-35) Mean Corpuscular Hemoglobin Concent 32 g/dL (31-37) Red Cell Distribution Width 17.5 % (11.5-14.5) Platelet Count 243 x10^3/uL (140-400) Neutrophils (%) (Auto) 55 % (31-73) Lymphocytes (%) (Auto) 24 % (24-48) Monocytes (%) (Auto) 12 % (0-9) Eosinophils (%) (Auto) 8 % (0-3) Basophils (%) (Auto) 1 % (0-3) Neutrophils # (Auto) 3.2 x10^3uL (1.8-7.7) Lymphocytes # (Auto) 1.4 x10^3/uL (1.0-4.8) Monocytes # (Auto) 0.7 x10^3/uL (0.0-1.1) Eosinophils # (Auto) 0.4 x10^3/uL (0.0-0.7) Basophils # (Auto) 0.1 x10^3/uL (0.0-0.2) Sodium Level 139 mmol/L (136-145) Potassium Level 4.0 mmol/L (3.5-5.1) Chloride Level 102 mmol/L (98-107) Carbon Dioxide Level 30 mmol/L (21-32) Anion Gap 7 (6-14) Blood Urea Nitrogen 16 mg/dL (7-20) Creatinine 1.9 mg/dL (0.6-1.0) Estimated GFR (Cockcroft-Gault) 32.7 BUN/Creatinine Ratio 8 (6-20) Glucose Level 211 mg/dL (70-99) Calcium Level 8.1 mg/dL (8.5-10.1) Magnesium Level 1.9 mg/dL (1.8-2.4) Total Bilirubin 0.1 mg/dL (0.2-1.0) Aspartate Amino Transf (AST/SGOT) 8 U/L (15-37) Alanine Aminotransferase (ALT/SGPT) 11 U/L (14-59) Alkaline Phosphatase 130 U/L (46-116) Total Protein 6.2 g/dL (6.4-8.2) Albumin 2.2 g/dL (3.4-5.0) Albumin/Globulin Ratio 0.6 (1.0-1.7) Prealbumin 15 mg/dL (10-36) Glucose (Fingerstick) 114 mg/dL (70-99) 31 mg/dL (70-99) 29 mg/dL (70-99) Test 12/14/16 11:38 12/14/16 12:02 12/14/16 13:30 12/14/16 15:25 Glucose (Fingerstick) 36 mg/dL (70-99) 82 mg/dL (70-99) 110 mg/dL (70-99) Urine Collection Type Unknown Urine Color Yellow Urine Clarity Hazy Urine pH 5.5 Urine Specific Antonito 1.015 Urine Protein 114.1 mg/dL (Not Estab.) Urine Glucose (UA) Negative mg/dL (NEG) Urine Ketones (Stick) Negative mg/dL (NEG) Urine Blood Negative (NEG) Urine Nitrite Negative (NEG) Urine Bilirubin Negative (NEG) Urine Urobilinogen Dipstick 0.2 mg/dL (0.2 mg/dL) Urine Leukocyte Esterase Trace (NEG) Urine RBC 0 /HPF (0-2) Urine WBC 1-4 /HPF (0-4) Urine Squamous Epithelial Cells Many /LPF Urine Bacteria Moderate /HPF (0-FEW) Urine Hyaline Casts Few /HPF Urine Creatinine 153.2 mg/dL (Not Estab.) Urine Protein/Creatinine Ratio 745 mg/g creat (0-200) Urine Opiates Screen Pos (NEG) Urine Methadone Screen Neg (NEG) Urine Barbiturates Neg (NEG) Urine Phencyclidine Screen Neg (NEG) Urine Amphetamine/Methamphetamine Neg (NEG) Urine Benzodiazepines Screen Pos (NEG) Urine Cocaine Screen Pos (NEG) Urine Cannabinoids Screen Neg (NEG) Urine Ethyl Alcohol Neg (NEG) White Blood Count 6.0 x10^3/uL (4.0-11.0) Red Blood Count 3.23 x10^6/uL (3.50-5.40) Hemoglobin 8.6 g/dL (12.0-15.5) Hematocrit 27.7 % (36.0-47.0) Mean Corpuscular Volume 86 fL (79-100) Mean Corpuscular Hemoglobin 27 pg (25-35) Mean Corpuscular Hemoglobin Concent 31 g/dL (31-37) Red Cell Distribution Width 17.3 % (11.5-14.5) Platelet Count 272 x10^3/uL (140-400) Test 12/14/16 16:18 12/14/16 19:49 12/15/16 02:45 12/15/16 08:04 Glucose (Fingerstick) 184 mg/dL (70-99) 168 mg/dL (70-99) 95 mg/dL (70-99) White Blood Count 5.2 x10^3/uL (4.0-11.0) Red Blood Count 2.84 x10^6/uL (3.50-5.40) Hemoglobin 7.6 g/dL (12.0-15.5) Hematocrit 24.4 % (36.0-47.0) Mean Corpuscular Volume 86 fL (79-100) Mean Corpuscular Hemoglobin 27 pg (25-35) Mean Corpuscular Hemoglobin Concent 31 g/dL (31-37) Red Cell Distribution Width 17.1 % (11.5-14.5) Platelet Count 250 x10^3/uL (140-400) Neutrophils (%) (Auto) 49 % (31-73) Lymphocytes (%) (Auto) 27 % (24-48) Monocytes (%) (Auto) 15 % (0-9) Eosinophils (%) (Auto) 8 % (0-3) Basophils (%) (Auto) 1 % (0-3) Neutrophils # (Auto) 2.6 x10^3uL (1.8-7.7) Lymphocytes # (Auto) 1.4 x10^3/uL (1.0-4.8) Monocytes # (Auto) 0.8 x10^3/uL (0.0-1.1) Eosinophils # (Auto) 0.4 x10^3/uL (0.0-0.7) Basophils # (Auto) 0.1 x10^3/uL (0.0-0.2) Sodium Level 140 mmol/L (136-145) Potassium Level 4.6 mmol/L (3.5-5.1) Chloride Level 104 mmol/L (98-107) Carbon Dioxide Level 31 mmol/L (21-32) Anion Gap 5 (6-14) Blood Urea Nitrogen 23 mg/dL (7-20) Creatinine 2.2 mg/dL (0.6-1.0) Estimated GFR (Cockcroft-Gault) 27.6 Glucose Level 156 mg/dL (70-99) Calcium Level 7.7 mg/dL (8.5-10.1) Phosphorus Level 4.4 mg/dL (2.6-4.7) Magnesium Level 2.0 mg/dL (1.8-2.4) Albumin 2.3 g/dL (3.4-5.0) Laboratory Tests Test 12/14/16 11:23 12/14/16 11:25 12/14/16 11:38 12/14/16 12:02 Glucose (Fingerstick) 31 mg/dL (70-99) 29 mg/dL (70-99) 36 mg/dL (70-99) 82 mg/dL (70-99) Test 12/14/16 13:30 12/14/16 15:25 12/14/16 16:18 12/14/16 19:49 Urine Collection Type Unknown Urine Color Yellow Urine Clarity Hazy Urine pH 5.5 Urine Specific Antonito 1.015 Urine Protein 114.1 mg/dL (Not Estab.) Urine Glucose (UA) Negative mg/dL (NEG) Urine Ketones (Stick) Negative mg/dL (NEG) Urine Blood Negative (NEG) Urine Nitrite Negative (NEG) Urine Bilirubin Negative (NEG) Urine Urobilinogen Dipstick 0.2 mg/dL (0.2 mg/dL) Urine Leukocyte Esterase Trace (NEG) Urine RBC 0 /HPF (0-2) Urine WBC 1-4 /HPF (0-4) Urine Squamous Epithelial Cells Many /LPF Urine Bacteria Moderate /HPF (0-FEW) Urine Hyaline Casts Few /HPF Urine Creatinine 153.2 mg/dL (Not Estab.) Urine Protein/Creatinine Ratio 745 mg/g creat (0-200) Glucose (Fingerstick) 110 mg/dL (70-99) 184 mg/dL (70-99) 168 mg/dL (70-99) Urine Opiates Screen Pos (NEG) Urine Methadone Screen Neg (NEG) Urine Barbiturates Neg (NEG) Urine Phencyclidine Screen Neg (NEG) Urine Amphetamine/Methamphetamine Neg (NEG) Urine Benzodiazepines Screen Pos (NEG) Urine Cocaine Screen Pos (NEG) Urine Cannabinoids Screen Neg (NEG) Urine Ethyl Alcohol Neg (NEG) White Blood Count 6.0 x10^3/uL (4.0-11.0) Red Blood Count 3.23 x10^6/uL (3.50-5.40) Hemoglobin 8.6 g/dL (12.0-15.5) Hematocrit 27.7 % (36.0-47.0) Mean Corpuscular Volume 86 fL (79-100) Mean Corpuscular Hemoglobin 27 pg (25-35) Mean Corpuscular Hemoglobin Concent 31 g/dL (31-37) Red Cell Distribution Width 17.3 % (11.5-14.5) Platelet Count 272 x10^3/uL (140-400) Test 12/15/16 02:45 12/15/16 08:04 White Blood Count 5.2 x10^3/uL (4.0-11.0) Red Blood Count 2.84 x10^6/uL (3.50-5.40) Hemoglobin 7.6 g/dL (12.0-15.5) Hematocrit 24.4 % (36.0-47.0) Mean Corpuscular Volume 86 fL (79-100) Mean Corpuscular Hemoglobin 27 pg (25-35) Mean Corpuscular Hemoglobin Concent 31 g/dL (31-37) Red Cell Distribution Width 17.1 % (11.5-14.5) Platelet Count 250 x10^3/uL (140-400) Neutrophils (%) (Auto) 49 % (31-73) Lymphocytes (%) (Auto) 27 % (24-48) Monocytes (%) (Auto) 15 % (0-9) Eosinophils (%) (Auto) 8 % (0-3) Basophils (%) (Auto) 1 % (0-3) Neutrophils # (Auto) 2.6 x10^3uL (1.8-7.7) Lymphocytes # (Auto) 1.4 x10^3/uL (1.0-4.8) Monocytes # (Auto) 0.8 x10^3/uL (0.0-1.1) Eosinophils # (Auto) 0.4 x10^3/uL (0.0-0.7) Basophils # (Auto) 0.1 x10^3/uL (0.0-0.2) Sodium Level 140 mmol/L (136-145) Potassium Level 4.6 mmol/L (3.5-5.1) Chloride Level 104 mmol/L (98-107) Carbon Dioxide Level 31 mmol/L (21-32) Anion Gap 5 (6-14) Blood Urea Nitrogen 23 mg/dL (7-20) Creatinine 2.2 mg/dL (0.6-1.0) Estimated GFR (Cockcroft-Gault) 27.6 Glucose Level 156 mg/dL (70-99) Calcium Level 7.7 mg/dL (8.5-10.1) Phosphorus Level 4.4 mg/dL (2.6-4.7) Magnesium Level 2.0 mg/dL (1.8-2.4) Albumin 2.3 g/dL (3.4-5.0) Glucose (Fingerstick) 95 mg/dL (70-99) Medications Active Scripts Medications Dose Route/Sig Max Daily Dose Days Date Category Doxycycline Hyclate 100 Mg Tablet 100 Mg PO BID 12/04/16 Rx Percocet 10-325 Mg Tablet (Oxycodone/Acetaminophen) 1 Each Tablet 1 Tab PO Q4-6HRS 12/04/16 Rx Toujeo Solostar (Insulin Glargine,Hum.rec.anlog) 300 Unit/1 Ml Insuln.pen 36 Unit SQ HS 10/10/16 Reported Amlodipine Besylate 10 Mg Tablet 10 Mg PO DAILY 09/27/15 Rx Novolog Flexpen (Insulin Aspart) 100 Unit/1 Ml Insuln.pen 10 Units SQ TIDAC 05/27/15 Rx Hydralazine Hcl 50 Mg Tablet 100 Mg PO Q8HRS 05/27/15 Rx Furosemide 40 Mg Tablet 40 Mg PO DAILY 05/27/15 Rx Atorvastatin Calcium 40 Mg Tablet 1 Tab PO DAILY 05/23/15 Reported Omeprazole 40 Mg Capsule.dr 1 Cap PO DAILY 05/23/15 Reported Ventolin Hfa Inhaler (Albuterol Sulfate) 18 Gm Hfa.aer.ad 2 Puff IH PRN Q4-6HRS 05/23/15 Reported Glipizide 10 Mg Tablet 1 Tab PO BIDAC 06/10/14 Reported Clonidine Hcl 0.2 Mg Tablet 1 Tab PO BID 06/10/14 Reported Coreg (Carvedilol) 25 Mg Tablet 1 Tab PO [id number] 06/10/14 Reported Impression . PT EXAMINED FULL NOTE DICTATED A/C RESP FAILURE A/C CHF THANKS DIMPLE ACOSTA MD Dec 15, 2016 10:18
[2016-12-15] MEDS ORDERED: DICL100G18 TP (11:43)
[2016-12-15] MEDS ORDERED: FERR325T72 PO (11:46)
[2016-12-15 11:54] VITALS: BP 112/58
--- NOTE | 2016-12-15 13:06 | PDOC ---
SUBJECTIVE ROS CKD III doing and feeoling a little ebtter today CVS: no Orthopnea, no CP RESP: no SOB, no MORLEY GI: no Nausea, no Vomiting : no Dysuria, no Urgency OBJECTIVE Vital Signs Vital Signs Date Time Temp Pulse Resp B/P (MAP) Pulse Ox O2 Delivery O2 Flow Rate FiO2 12/15/16 11:54 98.4 62 16 112/58 (76) 99 Room Air 2.0 98.4 I & 0 Intake and Output 12/15/16 07:00 Intake Total 1510 ml Output Total 150 ml Balance 1360 ml Intake Oral 1510 ml Output Urine Total 150 ml PHYSICAL EXAM Physical Exam General Appearance: Awake Alert Oriented x 3 In no Distress Eyes: VIsion Unchanged Conjunctiva Normal EN: No EN Drainage Mucous Memb. moist Neck: no JVD no JVP Supple no Thyromegaly; thick neck CVS: S1 S2 ? Murmur No Gallop No Rub tr Edema Resp: no Rales no Rhonchi no Acc. Muscle use; Dec AE in bases GI: BAS +ve NO Bruit Non Tender Non Distended - obese : no CVA tenderness; no Suprapubic Tenderness Assessment & Plan CKD III : I believe Creat of 2.2 -2.4 will probably be her new baseline when BP and fluid status are optimized. Current FLuid and E-lyte status does not necessitate emergent need for Dialysis. Will re-evaluate for Dialysis in am. HypoAlbuminemia - suspect due to proteinuria, Pre-Alb is good Known Proteinuria - suspect duet o DM/HTn /NS - requantitate with ratio Anemia: (known Fe def in September) , ct PO FeSO4, start Epogen; ; Transfuse < 7 HTN: (? Renovascular) - ? NEed for DEVONTE Eval. ? Accel HTn with ? Urgency more likely due to lack of Clonidine. Current BP meds reviewed. See orders for changes. ? DEVONTE - If LHC is contemplated then Renal artery eval may be undertaken at the same time Discussed Plan of Care and prognosis etc. at length with pt and DR Foy COMMENT/RELEVANT DATA Meds Current Medications Medications (Trade) Dose Ordered Sig/Rob Start Time Stop Time Status Last Admin Dose Admin Acetaminophen (Tylenol) 650 mg 1X ONCE 12/13/16 03:45 12/13/16 03:46 DC 12/13/16 03:59 650 MG Albuterol Sulfate (Ventolin Neb Soln) 2.5 mg PRN Q4HRS PRN 12/13/16 08:30 12/14/16 09:14 2.5 MG Amlodipine Besylate (Norvasc) 10 mg DAILY 12/13/16 09:00 12/15/16 08:07 10 MG Aspirin (Children'S Aspirin) 324 mg 1X ONCE 12/13/16 03:00 12/13/16 03:01 DC 12/13/16 03:05 324 MG Aspirin (Ecotrin) 81 mg [id number] 12/14/16 08:00 12/15/16 08:07 81 MG Atorvastatin Calcium (Lipitor) 40 mg DAILY 12/13/16 09:00 12/15/16 08:06 40 MG Carvedilol (Coreg) 25 mg BIDWMEALS 12/13/16 09:00 12/15/16 08:08 25 MG Clonidine HCl (Catapres) 0.2 mg BID 12/13/16 09:00 12/15/16 08:06 0.2 MG Dextrose (Dextrose 50%-Water Syringe) 12.5 gm PRN Q15MIN PRN 12/13/16 08:30 12/13/16 08:39 DC Diclofenac Sodium (Voltaren) 1 jil BID 12/14/16 21:00 12/15/16 08:05 1 JIL Docusate Sodium (Colace) 100 mg DAILY 12/14/16 09:00 12/15/16 08:06 100 MG Enalaprilat (Vasotec) 1.25 mg 1X ONCE 12/13/16 02:45 12/13/16 02:46 DC 12/13/16 02:37 1.25 MG Enoxaparin Sodium (Lovenox 40mg Syringe) 40 mg Q12HR 12/14/16 11:00 12/14/16 20:26 40 MG Enoxaparin Sodium (Lovenox Per Pharmacy Prophylaxis Dosing) 1 each PRN DAILY PRN 12/13/16 22:00 Ferrous Sulfate (Feosol) 325 mg BIDWMEALS 12/14/16 09:00 12/15/16 08:07 325 MG Furosemide (Lasix) 40 mg 1X ONCE 12/13/16 15:00 12/13/16 15:01 DC 12/13/16 15:45 40 MG Glipizide (Glucotrol) 10 mg BIDBFRMEAL 12/13/16 09:00 12/15/16 08:07 10 MG Glucose (Insta-Glucose) 15 gm STK-MED ONCE 12/14/16 11:40 12/15/16 08:43 DC Hydralazine HCl (Apresoline) 100 mg Q8HRS 12/13/16 14:00 12/15/16 05:57 100 MG Insulin Aspart (NovoLOG) 10 units TIDAC 12/13/16 08:30 12/14/16 09:07 10 UNITS Insulin Detemir (Levemir) 29 units QHS 12/13/16 21:00 12/14/16 20:34 29 UNITS Labetalol HCl (Normodyne) 20 mg PRN Q6HRS PRN 12/13/16 05:45 Magnesium Sulfate/ Dextrose 50 ml @ 25 mls/hr PRN DAILY PRN 12/14/16 09:00 Nitroglycerin (Nitro-Bid Oint) 2 inch 1X ONCE 12/13/16 03:00 12/13/16 03:01 DC 12/13/16 03:09 2 INCH Nitroglycerin (Nitrostat) 0.4 mg PRN Q5MIN PRN 12/13/16 02:15 12/14/16 02:14 DC 12/13/16 02:23 0.4 MG Non-Formulary Medication 2 puff PRN Q4-6HRS 12/13/16 08:30 12/13/16 08:34 DC Ondansetron HCl (Zofran) 4 mg PRN Q8HRS PRN 12/13/16 03:30 12/14/16 03:30 DC Oxycodone/ Acetaminophen (Percocet 10/325) 1 tab PRN Q4HRS PRN 12/13/16 08:30 12/15/16 08:07 1 TAB Pantoprazole Sodium (Protonix) 40 mg DAILYAC 12/13/16 09:00 12/15/16 08:07 40 MG Potassium Chloride (Klor-Con) 20 meq DAILYWBKFT 12/14/16 08:00 12/14/16 09:07 DC 12/14/16 09:02 20 MEQ Lab Laboratory Tests Test 12/14/16 13:30 12/14/16 15:25 12/14/16 16:18 12/14/16 19:49 Urine Collection Type Unknown Urine Color Yellow Urine Clarity Hazy Urine pH 5.5 Urine Specific Jenner 1.015 Urine Protein 114.1 mg/dL (Not Estab.) Urine Glucose (UA) Negative mg/dL (NEG) Urine Ketones (Stick) Negative mg/dL (NEG) Urine Blood Negative (NEG) Urine Nitrite Negative (NEG) Urine Bilirubin Negative (NEG) Urine Urobilinogen Dipstick 0.2 mg/dL (0.2 mg/dL) Urine Leukocyte Esterase Trace (NEG) Urine RBC 0 /HPF (0-2) Urine WBC 1-4 /HPF (0-4) Urine Squamous Epithelial Cells Many /LPF Urine Bacteria Moderate /HPF (0-FEW) Urine Hyaline Casts Few /HPF Urine Creatinine 153.2 mg/dL (Not Estab.) Urine Protein/Creatinine Ratio 745 mg/g creat (0-200) Glucose (Fingerstick) 110 mg/dL (70-99) 184 mg/dL (70-99) 168 mg/dL (70-99) Urine Opiates Screen Pos (NEG) Urine Methadone Screen Neg (NEG) Urine Barbiturates Neg (NEG) Urine Phencyclidine Screen Neg (NEG) Urine Amphetamine/Methamphetamine Neg (NEG) Urine Benzodiazepines Screen Pos (NEG) Urine Cocaine Screen Pos (NEG) Urine Cannabinoids Screen Neg (NEG) Urine Ethyl Alcohol Neg (NEG) White Blood Count 6.0 x10^3/uL (4.0-11.0) Red Blood Count 3.23 x10^6/uL (3.50-5.40) Hemoglobin 8.6 g/dL (12.0-15.5) Hematocrit 27.7 % (36.0-47.0) Mean Corpuscular Volume 86 fL (79-100) Mean Corpuscular Hemoglobin 27 pg (25-35) Mean Corpuscular Hemoglobin Concent 31 g/dL (31-37) Red Cell Distribution Width 17.3 % (11.5-14.5) Platelet Count 272 x10^3/uL (140-400) Test 12/15/16 02:45 12/15/16 08:04 12/15/16 11:39 White Blood Count 5.2 x10^3/uL (4.0-11.0) Red Blood Count 2.84 x10^6/uL (3.50-5.40) Hemoglobin 7.6 g/dL (12.0-15.5) Hematocrit 24.4 % (36.0-47.0) Mean Corpuscular Volume 86 fL (79-100) Mean Corpuscular Hemoglobin 27 pg (25-35) Mean Corpuscular Hemoglobin Concent 31 g/dL (31-37) Red Cell Distribution Width 17.1 % (11.5-14.5) Platelet Count 250 x10^3/uL (140-400) Neutrophils (%) (Auto) 49 % (31-73) Lymphocytes (%) (Auto) 27 % (24-48) Monocytes (%) (Auto) 15 % (0-9) Eosinophils (%) (Auto) 8 % (0-3) Basophils (%) (Auto) 1 % (0-3) Neutrophils # (Auto) 2.6 x10^3uL (1.8-7.7) Lymphocytes # (Auto) 1.4 x10^3/uL (1.0-4.8) Monocytes # (Auto) 0.8 x10^3/uL (0.0-1.1) Eosinophils # (Auto) 0.4 x10^3/uL (0.0-0.7) Basophils # (Auto) 0.1 x10^3/uL (0.0-0.2) Sodium Level 140 mmol/L (136-145) Potassium Level 4.6 mmol/L (3.5-5.1) Chloride Level 104 mmol/L (98-107) Carbon Dioxide Level 31 mmol/L (21-32) Anion Gap 5 (6-14) Blood Urea Nitrogen 23 mg/dL (7-20) Creatinine 2.2 mg/dL (0.6-1.0) Estimated GFR (Cockcroft-Gault) 27.6 Glucose Level 156 mg/dL (70-99) Calcium Level 7.7 mg/dL (8.5-10.1) Phosphorus Level 4.4 mg/dL (2.6-4.7) Magnesium Level 2.0 mg/dL (1.8-2.4) Albumin 2.3 g/dL (3.4-5.0) Glucose (Fingerstick) 95 mg/dL (70-99) 146 mg/dL (70-99) RAFAEL VELIZ MD Dec 15, 2016 13:06
[2016-12-15 13:08] VITALS: BP 112/58
--- NOTE | 2016-12-15 14:01 | PDOC ---
CARDIO Progress Notes Date and Time Date of Service 12/15/2016 Time of Evaluation 1045 Subjective Subjective: No Chest Pain, No shortness of breath, No Palpitations, No Dizziness Vitals Vitals Vital Signs Date Time Temp Pulse Resp B/P (MAP) Pulse Ox O2 Delivery O2 Flow Rate FiO2 12/15/16 13:08 62 112/58 12/15/16 13:06 Room Air 12/15/16 11:54 98.4 16 99 2.0 98.4 Weight Weight [ ] Input and Output Intake and Output Intake and Output 12/15/16 07:00 Intake Total 1510 ml Output Total 150 ml Balance 1360 ml Intake Oral 1510 ml Output Urine Total 150 ml Laboratory Labs Laboratory Tests Test 12/14/16 15:25 12/14/16 16:18 12/14/16 19:49 12/15/16 02:45 White Blood Count 6.0 x10^3/uL (4.0-11.0) 5.2 x10^3/uL (4.0-11.0) Red Blood Count 3.23 x10^6/uL (3.50-5.40) 2.84 x10^6/uL (3.50-5.40) Hemoglobin 8.6 g/dL (12.0-15.5) 7.6 g/dL (12.0-15.5) Hematocrit 27.7 % (36.0-47.0) 24.4 % (36.0-47.0) Mean Corpuscular Volume 86 fL (79-100) 86 fL (79-100) Mean Corpuscular Hemoglobin 27 pg (25-35) 27 pg (25-35) Mean Corpuscular Hemoglobin Concent 31 g/dL (31-37) 31 g/dL (31-37) Red Cell Distribution Width 17.3 % (11.5-14.5) 17.1 % (11.5-14.5) Platelet Count 272 x10^3/uL (140-400) 250 x10^3/uL (140-400) Glucose (Fingerstick) 184 mg/dL (70-99) 168 mg/dL (70-99) Neutrophils (%) (Auto) 49 % (31-73) Lymphocytes (%) (Auto) 27 % (24-48) Monocytes (%) (Auto) 15 % (0-9) Eosinophils (%) (Auto) 8 % (0-3) Basophils (%) (Auto) 1 % (0-3) Neutrophils # (Auto) 2.6 x10^3uL (1.8-7.7) Lymphocytes # (Auto) 1.4 x10^3/uL (1.0-4.8) Monocytes # (Auto) 0.8 x10^3/uL (0.0-1.1) Eosinophils # (Auto) 0.4 x10^3/uL (0.0-0.7) Basophils # (Auto) 0.1 x10^3/uL (0.0-0.2) Sodium Level 140 mmol/L (136-145) Potassium Level 4.6 mmol/L (3.5-5.1) Chloride Level 104 mmol/L (98-107) Carbon Dioxide Level 31 mmol/L (21-32) Anion Gap 5 (6-14) Blood Urea Nitrogen 23 mg/dL (7-20) Creatinine 2.2 mg/dL (0.6-1.0) Estimated GFR (Cockcroft-Gault) 27.6 Glucose Level 156 mg/dL (70-99) Calcium Level 7.7 mg/dL (8.5-10.1) Phosphorus Level 4.4 mg/dL (2.6-4.7) Magnesium Level 2.0 mg/dL (1.8-2.4) Albumin 2.3 g/dL (3.4-5.0) Test 12/15/16 08:04 12/15/16 11:39 Glucose (Fingerstick) 95 mg/dL (70-99) 146 mg/dL (70-99) Physical Exam HEENT: Neck Supple W Full Motion Chest: Symmetric LUNGS: Other (bibasilar crackles) Heart: S1S2, RRR (SR, no significant ectopies ), no murmurs Abdomen: Soft N/T, Other (morbid obesity) Extremities: No Calf Tenderness, Other (1+ bilateral LE pitting edema) Neurology: alert, oriented, follow commands Assessment Assessment 1. Malignant HTN: well controlled. possible noncompliance. Positive for cocaine on urine but still denies use 2. Acute on chronic respiratory failure/COPD/PRAVEEN: much improved 3. Acute on chronic systolic/diastolic CHF:Compensated 4. Hypoxic encephalopathy: resolved 5. Elevated troponin: peaked at 0.197. Demand mediated as above factors 6. Hx of nonobstructive CAD with diffuse disease: [facility] 09/2015. CP free 7. CKD3 8. Hx of cocaine abuse: Positive on drug screen 9. DM2/HLP 10. Anemia: Hgb 7.6 per PCP Recommendations 1. Bipap at HS per pulmonary 2. Follow up in our office in 2-4 weeks 3. Cr now at 2.2. Defer further lasix to nephrology 4. Continue with current regimen. Daily wt. Home BP monitoring. 5. Continue to encourage lifestyle modifications including abstinence to cocaine and med compliance. ALBIN WALTON [employer] Dec 15, 2016 14:01
[2016-12-15] MEDS ORDERED: cloNIDine HCL 0.1 MG TABLET PO SCH (21:00)
--- NOTE | 2016-12-15 22:18 | DS ---
DATE OF DISCHARGE: 12/15/2016 CHIEF COMPLAINT: Acute on chronic hypoxic respiratory failure. HOSPITAL COURSE: The patient is a 61-year-old morbidly obese -[place] woman with past medical history of CHF, who presented with shortness of breath into the Emergency Room. Chest x-ray did not reveal any acute cardiopulmonary abnormalities and she was admitted for CHF exacerbation with a mild troponin leak and a BNP of 7653. Both Cardiology as well as Nephrology was following and she was placed on IV Lasix with quick resolution of her symptoms. Her electrolytes and BUN were monitored were essentially normal at her baseline at the time of discharge. She does carry a history of CKD 3. Her diabetes was well controlled in the hospital home regimen and addition of insulin sliding scale. DISCHARGE PHYSICAL EXAMINATION: VITAL SIGNS: Show a blood pressure of 112/58, heart rate of 62, respiratory rate is 16. She is afebrile. GENERAL: This is a morbidly obese -[place] woman, alert and oriented, in no acute distress. HEENT: Shows no scleral icterus. NECK: Supple. LUNGS: Clear to auscultation bilaterally. HEART: Regular rate and rhythm. ABDOMEN: Obese, positive bowel sounds. Organs could not be palpated. EXTREMITIES: Show bilateral trace pedal edema. DISCHARGE DATE: 12/15/2016 DISCHARGE DIAGNOSIS: Congestive heart failure exacerbation. DISCHARGE DISPOSITION: To home with home health. DISCHARGE CONDITION: Improved. DISCHARGE MEDICATIONS: Please refer to MAR. 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 Dahl in 1 week. CIARAN CARBALLO MD DR: ANDREW/nts JOB#: [id number] / [id number] divina Dahl Dr.
== END 2016-12-15 14:20 | disposition home health service (06) | DRG 189 ==
LOC: ER 01:54 → 1 WEST ICU 03:42 → 5 NORTH 12-14 11:12
PROVIDERS: ADMIT Internal Medicine; ATTEND Internal Medicine
PROC: 5A09357 Assistance with Respiratory Ventilation, Less than 24 Consecutive Hours, Continuous Positive Airway Pressure (ICD-10-PCS; principal; 2016-12-13)
DX: J96.21 Acute and chronic respiratory failure with hypoxia (principal); I50.43 Acute on chronic combined systolic (congestive) and diastolic (congestive) heart failure; I13.0 Hypertensive heart and chronic kidney disease with heart failure and stage 1 through stage 4 chronic kidney disease, or unspecified chronic kidney disease; E44.0 Moderate protein-calorie malnutrition; G93.1 Anoxic brain damage, not elsewhere classified; Z68.42 Body mass index [BMI] 45.0-49.9, adult; I16.1 Hypertensive emergency; J90 Pleural effusion, not elsewhere classified; D63.1 Anemia in chronic kidney disease; E11.22 Type 2 diabetes mellitus with diabetic chronic kidney disease; E66.01 Morbid (severe) obesity due to excess calories; E78.5 Hyperlipidemia, unspecified; F17.210 Nicotine dependence, cigarettes, uncomplicated; F41.9 Anxiety disorder, unspecified; G47.33 Obstructive sleep apnea (adult) (pediatric); I25.10 Atherosclerotic heart disease of native coronary artery without angina pectoris; J44.9 Chronic obstructive pulmonary disease, unspecified; K21.9 Gastro-esophageal reflux disease without esophagitis; M17.0 Bilateral primary osteoarthritis of knee; M70.62 Trochanteric bursitis, left hip; M70.61 Trochanteric bursitis, right hip; N18.3 Chronic kidney disease, stage 3 (moderate); M79.89 Other specified soft tissue disorders; R74.8 Abnormal levels of other serum enzymes; E88.09 Other disorders of plasma-protein metabolism, not elsewhere classified; R80.9 Proteinuria, unspecified; M51.36 Other intervertebral disc degeneration, lumbar region; M76.9 Unspecified enthesopathy, lower limb, excluding foot; Z79.4 Long term (current) use of insulin; Z82.49 Family history of ischemic heart disease and other diseases of the circulatory system; Z91.19 Patient's noncompliance with other medical treatment and regimen; Z98.51 Tubal ligation status; Z80.9 Family history of malignant neoplasm, unspecified
CPT/HCPCS: 36415; 36600; 71010; 80053; 80069; 80307; 81001; 82570; 82805; 82962; 83036; 83735; 83880; 84134; 84156; 84484; 85027; 87086; 87641; 93005; 94250; 94640; 94660; 94760; 96374; 96375; J1650; J1815; J1940; J7060; J7613; 97110; 97116; 99291-25; G0479

== ENCOUNTER 2016-12-19 08:02 | Inpatient (IN) | payer OTHER ==
[~2016-12-19] VITALS: Ht 165.1 cm; Wt 138.1 kg
[~2016-12-19 08:02] MED LIST changes: +DICL100G18 TP; +FERR325T72 PO
[2016-12-19 08:44] LABS: HCO3 ABG 27 mmol/L (21-28); PCO2 ABG 45 mmHg (35-46); PO2 ABG 53 mmHg (65-108); SAT O2 ABG 85 % (92-99)
[2016-12-19 08:45] LABS: FIO2 ABG 40
[2016-12-19] MEDS ORDERED: DEXAMETHASONE SOD PHOS 20 MG/5 ML VIAL. IV ONE (08:45)
[2016-12-19 08:50] LABS: INR 1.1 (0.8-1.1); PROTHROMBIN TIME PATIENT 13.4 SEC (11.7-14.0)
--- NOTE | 2016-12-19 08:58 | RAD ---
Indication shortness of air. A single view of the chest was obtained and is compared to an examination 5 days earlier. There is unchanged cardiomegaly. There are changes compatible with mild congestive heart failure. This appears slightly worse than on the previous exam. There is no consolidated pneumonia. Significant pleural fluid is not seen. There is no pneumothorax. IMPRESSION: Cardiomegaly with changes of mild congestive heart failure, slightly worse than on the previous exam
[2016-12-19 09:11] LABS: BASO # 0.1 x10^3/uL (0.0-0.2); BASO % 1 % (0-3); EOS % 1 % (0-3); HEMATOCRIT 33.1 % (36.0-47.0); HEMOGLOBIN 10.4 g/dL (12.0-15.5); LYMPH % 11 % (24-48); MEAN CORPUSCULAR HEMOGLOBIN 26 pg (25-35); MEAN CORPUSCULAR HGB CONC 32 g/dL (31-37); MEAN CORPUSCULAR VOLUME 84 fL (79-100); MONO % 4 % (0-9); NEUT % 83 % (31-73); PLATELET COUNT 302 x10^3/uL (140-400); RED BLOOD COUNT 3.96 x10^6/uL (3.50-5.40); RED CELL DISTRIBUTION WIDTH 17.2 % (11.5-14.5); WHITE BLOOD COUNT 9.3 x10^3/uL (4.0-11.0)
[2016-12-19] MEDS ORDERED: oxyCODONE/APAP 10/325 1 TAB TABLET PO ONE (09:15)
[2016-12-19] MEDS ORDERED: ALBUTEROL SULFATE 2.5 MG/3 ML NEBU. CONT NEB ONE (09:15)
[2016-12-19] MEDS ORDERED: amLODIPine BESYLATE 5 MG TABLET PO ONE (09:15)
[2016-12-19] MEDS ORDERED: hydroCHLOROthiazide 12.5 MG CAPSULE PO ONE (09:15)
[2016-12-19] MEDS ORDERED: IPRATRPIUM/ALBUTEROL 0.5/2.5MG 3 ML NEBU. NEB ONE (09:15)
[2016-12-19 09:21] LABS: CALCIUM 8.7 mg/dL (8.5-10.1); CREATININE 1.4 mg/dL (0.6-1.0); GFR 46.6
[2016-12-19 09:22] LABS: POTASSIUM 3.6 mmol/L (3.5-5.1)
[2016-12-19 09:27] LABS: MAGNESIUM 1.8 mg/dL (1.8-2.4)
[2016-12-19 09:34] LABS: CKMB MASS 1.2 ng/mL (0.0-3.6)
[2016-12-19] MEDS ORDERED: IOHEXOL 300 MG/ML 75 ML VIAL IV ONE (10:15)
[2016-12-19] MEDS ORDERED: CONTRAST GIVEN MC PRN (10:30)
--- NOTE | 2016-12-19 11:33 | RAD ---
Indication elevated d-dimer and shortness of breath. Axial images of the chest were obtained. The examination was to be tailored for the detection of pulmonary embolus. 60 cc of Omnipaque 300 was administered intravenously. MIP images were generated and reviewed. No prior CT imaging of the chest is available. The examination, evaluated for pulmonary embolus is limited. There is not optimal opacification of the pulmonary arteries. Additionally there is considerable degradation of the images secondary to patient respiratory motion. No large central pulmonary emboli are seen. Definite embolus is not seen but again the study is significantly limited The thoracic aorta is grossly normal. Coronary calcification is noted. There is borderline mediastinal adenopathy. There is mediastinal adenopathy seen in0 the prevascular space and the aortopulmonary window. Some pretracheal adenopathy is suggested. There are occasional calcified subcarinal lymph nodes. Calcified right hilar lymph nodes are noted. There is mild right hilar adenopathy. There is a minute amount of right pleural fluid. There may be a very tiny amount of loculated left pleural fluid. There are scattered areas of volume loss in the lungs. This is most pronounced in the left lower lobe. This may reflect atelectasis or scar. Pneumonia is not excluded. A dominant soft tissue mass in either lung is not seen. Imaging through the upper abdomen shows no acute finding. IMPRESSION: Significantly limited study evaluating for pulmonary embolus. No large central pulmonary emboli are seen. Borderline mediastinal adenopathy and mild right hilar adenopathy. The clinical significance or etiology is uncertain. Minute right pleural effusion. There is likely a tiny amount of left pleural fluid, probably loculated. Scattered areas of volume loss in the lungs is nonspecific. Some of this may reflect atelectasis or scar. Underlying pneumonia is not excluded PQRS Compliance Statement: One or more of the following individualized dose reduction techniques were utilized for this examination: 1. Automated exposure control 2. Adjustment of the mA and/or kV according to patient size 3. Use of iterative reconstruction technique
[2016-12-19] MEDS ORDERED: FUROSEMIDE 40 MG/4 ML VIAL. IVP ONE (11:45)
--- NOTE | 2016-12-19 12:54 | PHYS DOC ---
Past Medical History Past Medical History: CHF, COPD, Diabetes-Type II, Hypertension Additional Past Medical Histor: insomnia Past Surgical History: Tonsillectomy, Tubal ligation, Other Additional Past Surgical Histo: R ARM FX, R LEG FX Alcohol Use: None Drug Use: None Adult General Chief Complaint Chief Complaint: SHORTNESS OF BREATH [facility] HPI Patient is a 61 year old female with history of CHF, COPD, hypertension, who presents with shortness of breath that began last night. Patient states she thought her oxygen machine was not working well because she could not breathe very well. Patient states she uses oxygen 2 L at home. Patient denies any fever. Denies any congestion. Denies any chest pain. She states she does not have a PCP. Review of Systems Review of Systems Constitutional: Denies fever or chills [] Eyes: Denies change in visual acuity, redness, or eye pain [] HENT: Denies nasal congestion or sore throat [] Respiratory: shortness of breath [] Cardiovascular: No additional information not addressed in HPI [] GI: Denies abdominal pain, nausea, vomiting, bloody stools or diarrhea [] : Denies dysuria or hematuria [] Musculoskeletal: Denies back pain or joint pain [] Integument: Denies rash or skin lesions [] Neurologic: Denies headache, focal weakness or sensory changes [] Endocrine: Denies polyuria or polydipsia [] Current Medications Current Medications Current Medications Medications (Trade) Dose Ordered Sig/Rob Start Time Stop Time Status Last Admin Dose Admin Albuterol Sulfate (Ventolin Neb Soln) 10 mg 1X ONCE 12/19/16 09:15 12/19/16 09:16 DC 12/19/16 09:08 10 MG Albuterol/ Ipratropium (Duoneb) 3 ml 1X ONCE 12/19/16 09:15 12/19/16 09:16 DC 12/19/16 09:08 3 ML Amlodipine Besylate (Norvasc) 10 mg 1X ONCE 12/19/16 09:15 12/19/16 09:16 DC 12/19/16 09:17 10 MG Dexamethasone Sodium Phosphate (Decadron) 10 mg 1X ONCE 12/19/16 08:45 12/19/16 08:46 DC 12/19/16 08:51 10 MG Furosemide (Lasix) 40 mg 1X ONCE 12/19/16 11:45 12/19/16 11:46 DC 12/19/16 12:16 40 MG Hydrochlorothiazide (Microzide) 12.5 mg 1X ONCE 12/19/16 09:15 12/19/16 09:16 DC 12/19/16 09:17 12.5 MG Info (Do NOT chart on this entry -- for MONITORING) 1 each PRN DAILY PRN 12/19/16 10:30 12/21/16 10:29 Iohexol (Omnipaque 300 Mg/ml) 60 ml 1X ONCE 12/19/16 10:15 12/19/16 10:17 DC 12/19/16 10:26 60 ML Oxycodone/ Acetaminophen (Percocet 10/325) 1 tab 1X ONCE 12/19/16 09:15 12/19/16 09:16 DC 12/19/16 09:18 1 TAB Allergies Allergies Allergies Coded Allergies Type Severity Reaction Last Updated Verified No Known Drug Allergies 06/10/14 No Physical Exam Physical Exam Constitutional: Well developed, well nourished, no acute distress, non-toxic appearance. [] HENT: Normocephalic, atraumatic, bilateral external ears normal, oropharynx moist, no oral exudates, nose normal. [] Eyes: PERRLA, EOMI, conjunctiva normal, no discharge. [] Neck: Normal range of motion, no tenderness, supple, no stridor. [] Cardiovascular:Heart rate regular rhythm, no murmur [] Lungs & Thorax: Posterior lungs sound very moist. Patient is short of breath we had to put her on a venturi mask while we wait for her bipap. Abdomen: Bowel sounds normal, soft, no tenderness, no masses, no pulsatile masses. [] Skin: Warm, dry, no erythema, no rash. [] Back: No tenderness, no CVA tenderness. [] Extremities: No tenderness, no cyanosis, no clubbing, ROM intact, no edema. [] Neurologic: Alert and oriented X 3, normal motor function, normal sensory function, no focal deficits noted. [] Psychologic: Affect normal, judgement normal, mood normal. [] Current Patient Data Vital Signs Vital Signs Date Time Temp Pulse Resp B/P (MAP) Pulse Ox O2 Delivery O2 Flow Rate FiO2 12/19/16 12:00 90 23 199/78 (118) 96 12/19/16 09:13 Venturi Mask 12.0 12/19/16 08:02 98.0 98.0 Lab Values Laboratory Tests Test 12/19/16 08:20 12/19/16 08:30 12/19/16 09:00 O2 Saturation 85 % (92-99) L Arterial Blood pH 7.40 (7.35-7.45) Arterial Blood pCO2 at Patient Temp 45 mmHg (35-46) Arterial Blood pO2 at Patient Temp 53 mmHg (65-108) L Arterial Blood HCO3 27 mmol/L (21-28) Arterial Blood Base Excess 2 mmol/L (-3-3) FiO2 40 Prothrombin Time 13.4 SEC (11.7-14.0) Prothrombin Time INR 1.1 (0.8-1.1) D-Dimer (Manuela) 1.36 ug/mlFEU (0.00-0.50) H White Blood Count 9.3 x10^3/uL (4.0-11.0) Red Blood Count 3.96 x10^6/uL (3.50-5.40) Hemoglobin 10.4 g/dL (12.0-15.5) #L Hematocrit 33.1 % (36.0-47.0) #L Mean Corpuscular Volume 84 fL (79-100) Mean Corpuscular Hemoglobin 26 pg (25-35) Mean Corpuscular Hemoglobin Concent 32 g/dL (31-37) Red Cell Distribution Width 17.2 % (11.5-14.5) H Platelet Count 302 x10^3/uL (140-400) Neutrophils (%) (Auto) 83 % (31-73) H Lymphocytes (%) (Auto) 11 % (24-48) L Monocytes (%) (Auto) 4 % (0-9) Eosinophils (%) (Auto) 1 % (0-3) Basophils (%) (Auto) 1 % (0-3) Neutrophils # (Auto) 7.7 x10^3uL (1.8-7.7) Lymphocytes # (Auto) 1.0 x10^3/uL (1.0-4.8) Monocytes # (Auto) 0.4 x10^3/uL (0.0-1.1) Eosinophils # (Auto) 0.1 x10^3/uL (0.0-0.7) Basophils # (Auto) 0.1 x10^3/uL (0.0-0.2) Sodium Level 141 mmol/L (136-145) Potassium Level 3.6 mmol/L (3.5-5.1) Chloride Level 102 mmol/L (98-107) Carbon Dioxide Level 31 mmol/L (21-32) Anion Gap 8 (6-14) Blood Urea Nitrogen 11 mg/dL (7-20) Creatinine 1.4 mg/dL (0.6-1.0) H Estimated GFR (Cockcroft-Gault) 46.6 Glucose Level 197 mg/dL (70-99) H Calcium Level 8.7 mg/dL (8.5-10.1) Magnesium Level 1.8 mg/dL (1.8-2.4) Creatine Kinase 95 U/L (26-192) Creatine Kinase MB (Mass) 1.2 ng/mL (0.0-3.6) Creatine Kinase MB Relative Index 1.3 % (0-4) Troponin I Quantitative 0.038 ng/mL (0.000-0.055) MW-Mxf-V-Type Natriuretic Peptide 4148 pg/mL (0-124) H Lipase 81 U/L (73-393) Thyroid Stimulating Hormone (TSH) 0.631 uIU/mL (0.358-3.74) Ethyl Alcohol Level < 10 mg/dL (0-10) Laboratory Tests 12/19/16 09:00 Laboratory Tests 12/19/16 09:00 EKG EKG 08:[address] Earl sinus rhythm, HR 87 QRS interval 96 no STEMI[] Radiology/Procedures Radiology/Procedures []PROCEDURE: PORTABLE CHEST 1V Indication shortness of air. A single view of the chest was obtained and is compared to an examination 5 days earlier. There is unchanged cardiomegaly. There are changes compatible with mild congestive heart failure. This appears slightly worse than on the previous exam. There is no consolidated pneumonia. Significant pleural fluid is not seen. There is no pneumothorax. IMPRESSION: Cardiomegaly with changes of mild congestive heart failure, slightly worse than on the previous exam DICTATED and SIGNED BY: SÁNCHEZ GLASS MD DATE: 12/19/16 [id number] CC: NIKKI MALLOY APRN; NO PCP ~ Course & Med Decision Making Course & Med Decision Making Pertinent Labs and Imaging studies reviewed. (See chart for details) This is a 61-year-old female patient with history of COPD CHF and hypertension who presents today with shortness of breath that began last night. Patient was very short of air on arrival to the ED. We started her on 2 L of oxygen with no relief, we tried on Venturi mask and her O2 sats came up to 94% from 88. We ordered a BiPAP. Chest x-ray shows worsening CHF. Patient was given Lasix in the ED. She was admitted under Dr. Foy. BP medicines were ordered. Dragon Disclaimer Dragon Disclaimer This electronic medical record was generated, in whole or in part, using a voice recognition dictation system. Departure Departure Impression: Primary Impression: Acute respiratory failure Additional Impressions: Accelerated hypertension CHF (congestive heart failure) Disposition: ADMITTED INPATIENT Condition: STABLE Referrals: NO PCP (PCP) Problem Qualifiers Primary Impression: Acute respiratory failure Respiratory failure complication: hypoxia Qualified Codes: J96.01 - Acute respiratory failure with hypoxia Additional Impressions: CHF (congestive heart failure) Congestive heart failure type: unspecified congestive heart failure type Congestive heart failure chronicity: chronic Qualified Codes: I50.9 - Heart failure, unspecified NIKKI MALLOY PRESSED OR BLOWN [employer] WORK[employer] Dec 19, 2016 12:54
[2016-12-19] MEDS ORDERED: LABETALOL 20 MG/4 ML DISP.SYRIN. IVP PRN (13:00)
[2016-12-19] MEDS ORDERED: MORPHINE SULFATE 2 MG/ML DISP.SYRIN. IV PRN (13:00)
[2016-12-19] MEDS ORDERED: ACETAMINOPHEN 325 MG TABLET. PO PRN (13:00)
[2016-12-19] MEDS ORDERED: ONDANSETRON PF 4 MG/2 ML VIAL. IV PRN (13:00)
[2016-12-19 13:15] VITALS: BP 178/75
[2016-12-19] MEDS ORDERED: ALBUTEROL SULFATE 2.5 MG/3 ML NEBU. NEB PRN (15:15)
[2016-12-19 15:20] VITALS: BP 161/61
[2016-12-19] MEDS: FUROSEMIDE 40 MG TABLET. PO SCH (15:31)
[2016-12-19] MEDS: oxyCODONE/APAP 10/325 1 TAB TABLET PO PRN ×3 (15:32→22:59)
[2016-12-19] MEDS: glipiZIDE 5 MG TABLET PO SCH (15:32)
[2016-12-19] MEDS: IPRATRPIUM/ALBUTEROL 0.5/2.5MG 3 ML NEBU. NEB SCH ×2 (15:47→19:36)
[2016-12-19 16:17] LABS: BILIRUBIN,URINE NEGATIVE (NEG); GLUCOSE,URINE 100 mg/dL (NEG); NITRITE,URINE NEGATIVE (NEG); PROTEIN,URINE >=300 mg/dL (NEG-TRACE); UROBILINOGEN,URINE 0.2 mg/dL (0.2 mg/dL)
[2016-12-19 16:24] LABS: BARBITURATES NEG (NEG); BENZODIAZEPINES POS (NEG); CANNABINOIDS NEG (NEG); COCAINE POS (NEG); METHADONE NEG (NEG); OPIATES NEG (NEG); PHENCYCLIDINE NEG (NEG)
[2016-12-19 16:47] LABS: BACTERIA,URINE FEW /HPF (0-FEW); RBC,URINE OCC /HPF (0-2); SQUAMOUS EPITHELIAL CELL,UR FEW /LPF; WBC,URINE OCC /HPF (0-4)
[2016-12-19] MEDS: CARVEDILOL 12.5 MG TABLET. PO SCH (16:47)
[2016-12-19] MEDS: INSULIN ASPART 300 UNITS/3 ML INSULN.PEN SQ SCH (16:50)
--- NOTE | 2016-12-19 17:43 | PDOC1 ---
History and Physical Date of Admission Date of Admission DATE: 12/19/16 TIME: 17:35 Identification/Chief Complaint Chief Complaint shortness of breath Problems: Source Source: Chart review, Patient History of Present Illness History of Present Illness Ms. Platt is a 61 year old female with history of CHF, COPD, hypertension, just DC from here 4 days ago, was hositalized for CHF, dyspnea, cough and COPD. Admit for new shortness of breath that began last night. Her voice is very changed, and she reports sinus congestion and facial pain, she had fever and chills last night and feels lethargic overall New sputum production, white, She also thought her oxygen machine was not working well because she could not breathe very well. 2 liters 02 baseline no PCP, has not made a plan to f/u with Past Medical History Cardiovascular: CAD, CHF, HTN, Hyperlipidemia Pulmonary: COPD, Other GI: GERD Heme/Onc: Anemia NOS Psych: Anxiety Musculoskeletal: Osteoarthritis, Other Rheumatologic: No pertinent hx Infectious disease: No pertinent hx Renal/: Chronic renal insuff Endocrine: Diabetes Past Surgical History Past Surgical History: Tubal Ligation, Tonsillectomy Family History Family History: Hypertension Social History Smoke: Quit (?? says she quit, I am skeptical) ALCOHOL: none Drugs: Cocaine, Other (denied) Current Problem List Problem List Problems Medical Problems: (1) Accelerated hypertension Status: Acute (2) Acute respiratory failure Status: Acute (3) CHF (congestive heart failure) Status: Acute Problems: Current Medications Current Medications Current Medications Dexamethasone Sodium Phosphate (Decadron) 10 mg 1X ONCE IV Last administered on 12/19/16 08:51; Start 12/19/16 at 08:45; Stop 12/19/16 at 08:46; Status DC Albuterol/ Ipratropium (Duoneb) 3 ml 1X ONCE NEB Last administered on 09:08; Start 12/19/16 at 09:15; Stop 12/19/16 at 09:16; Status DC Albuterol Sulfate (Ventolin Neb Soln) 10 mg 1X ONCE CONT NEB Last administered on 12/19/16 09:08; Start 12/19/16 at 09:15; Stop 12/19/16 at 09:16; Status DC Oxycodone/ Acetaminophen (Percocet 10/325) 1 tab 1X ONCE PO Last administered on 12/19/16 09:18; Start 12/19/16 at 09:15; Stop 12/19/16 at 09:16; Status DC Hydrochlorothiazide (Microzide) 12.5 mg 1X ONCE PO Last administered on 09:17; Start 12/19/16 at 09:15; Stop 12/19/16 at 09:16; Status DC Amlodipine Besylate (Norvasc) 10 mg 1X ONCE PO Last administered on 12/19/16 09:17; Start 12/19/16 at 09:15; Stop 12/19/16 at 09:16; Status DC Iohexol (Omnipaque 300 Mg/ml) 60 ml 1X ONCE IV Last administered on 12/19/16 10:26; Start 12/19/16 at 10:15; Stop 12/19/16 at 10:17; Status DC Info (Do NOT chart on this entry -- for MONITORING) 1 each PRN DAILY PRN MC SEE COMMENTS; Start 12/19/16 at 10:30; Stop 12/21/16 at 10:29 Furosemide (Lasix) 40 mg 1X ONCE IVP Last administered on 12/19/16 12:16; Start 12/19/16 at 11:45; Stop 12/19/16 at 11:46; Status DC Ondansetron HCl (Zofran) 4 mg PRN Q8HRS PRN IV NAUSEA/VOMITING; Start 12/19/16 at 13:00; Stop 12/20/16 at 12:59 Morphine Sulfate 2 mg PRN Q2HR PRN IV PAIN; Start 12/19/16 at 13:00; Stop at 12:59 Acetaminophen (Tylenol) 650 mg PRN Q4HRS PRN PO FEVER; Start 12/19/16 at 13:00; Stop 12/20/16 at 12:59 Albuterol/ Ipratropium (Duoneb) 3 ml RTQID NEB Last administered on 12/19/16 15 :47; Start 12/19/16 at 16:00; Stop 12/20/16 at 15:59 Labetalol HCl (Normodyne) 20 mg PRN Q2HR PRN IVP HYPERTENSION, SEE COMMENTS Last administered on 12/19/16 13:39; Start 12/19/16 at 13:00 Amlodipine Besylate (Norvasc) 10 mg DAILY PO ; Start 12/20/16 at 09:00 Atorvastatin Calcium (Lipitor) 40 mg QHS PO ; Start 12/19/16 at 21:00 Clonidine HCl (Catapres) 0.2 mg BID PO ; Start 12/19/16 at 21:00 Diclofenac Sodium (Voltaren) 1 sohan BID TP ; Start 12/19/16 at 21:00 Doxycycline Hyclate (Vibra-Tab) 100 mg BID PO ; Start 12/19/16 at 21:00 Ferrous Sulfate (Feosol) 325 mg QHS PO ; Start 12/19/16 at 21:00 Furosemide (Lasix) 40 mg DAILY PO Last administered on 12/19/16 15:31; Start at 15:30 Hydralazine HCl (Apresoline) 100 mg Q8HRS PO Last administered on 12/19/16 15: 33; Start 12/19/16 at 15:30 Insulin Aspart (NovoLOG) 10 units TIDAC SQ Last administered on 12/19/16 16:50 ; Start 12/19/16 at 16:30 Oxycodone/ Acetaminophen (Percocet 10/325) 1 tab PRN Q4HRS PRN PO pain Last administered on 12/19/16 15:32; Start 12/19/16 at 15:00 Albuterol Sulfate (Ventolin Neb Soln) 2.5 mg PRN Q4HRS PRN NEB SHORTNESS OF BREATH; Start 12/19/16 at 15:15 Carvedilol (Coreg) 25 mg BIDWMEALS PO Last administered on 12/19/16 16:47; Start 12/19/16 at 17:00 Glipizide (Glucotrol) 10 mg BIDBFRMEAL PO Last administered on 12/19/16 15:32; Start 12/19/16 at 16:30 Insulin Detemir (Levemir) 29 units QHS SQ ; Start 12/19/16 at 21:00 Pantoprazole Sodium (Protonix) 40 mg DAILYAC PO ; Start 12/20/16 at 07:30 Active Scripts Active Feosol (Ferrous Sulfate) 325 Mg Tablet 325 Mg PO QHS Voltaren (Diclofenac Sodium) 100 Gm Gel..gram. 1 Sohan TP BID Doxycycline Hyclate 100 Mg Tablet 100 Mg PO BID Percocet 10-325 Mg Tablet (Oxycodone/Acetaminophen) 1 Each Tablet 1 Tab PO Q4- 6HRS Amlodipine Besylate 10 Mg Tablet 10 Mg PO DAILY Novolog Flexpen (Insulin Aspart) 100 Unit/1 Ml Insuln.pen 10 Units SQ TIDAC Hydralazine Hcl 50 Mg Tablet 100 Mg PO Q8HRS Furosemide 40 Mg Tablet 40 Mg PO DAILY Reported Anthonyabdi Hummel (Insulin Glargine,Hum.rec.anlog) 300 Unit/1 Ml Insuln.pen 36 Unit SQ HS Atorvastatin Calcium 40 Mg Tablet 1 Tab PO DAILY Omeprazole 40 Mg Capsule.dr 1 Cap PO DAILY Ventolin Hfa Inhaler (Albuterol Sulfate) 18 Gm Hfa.aer.ad 2 Puff IH PRN Q4-6HRS Glipizide 10 Mg Tablet 1 Tab PO BIDAC Clonidine Hcl 0.2 Mg Tablet 1 Tab PO BID Coreg (Carvedilol) 25 Mg Tablet 1 Tab PO [id number] Allergies Allergies: Coded Allergies: No Known Drug Allergies (Unverified , 06/10/14) ROS General: YES: Chills, Fatigue, Malaise, No: Night Sweats, Appetite, Other PSYCHOLOGICAL ROS: No: Anxiety, Behavioral Disorder, Concentration difficultie , Decreased libido, Depression, Disorientation, Hallucinations, Hostility, Irritablity, Memory difficulties, Mood Swings, Obsessive thoughts, Physical abuse, Sexual abuse, Sleep disturbances, Suicidal ideation, Other Eyes: No Blurry vision, No Decreased vision, No Double vision, No Dry eyes, No Excessive tearing, No Eye Pain, No Itchy Eyes, No Loss of vision, No Photophobia , No Scotomata, No Uses contacts, No Uses glasses, No Other HEENT: YES: Heacaches, Sinus pain, Sore Throat, No: Visual Changes, Hearing change, Nasal congestion, Nasal discharge, Oral lesions, Epistaxis, Sneezing, Snoring, Tinnitus, Vertigo, Vocal changes, Other ALLERGY AND IMMUNOLOGY: No: Hives, Insect Bite Sensitivity, Itchy/Watery Eyes, Nasal Congestion, Post Nasal Drip, Seasonal Allergies, Other ENDOCRINE: No: Breast Changes, Galactorrhea, Hair Pattern Changes, Hot Flashes , Malaise/lethargy, Mood Swings, Palpitations, Polydipsia/polyuria, Skin Changes , Temperature Intolerance, Unexpected Weight Changes, Other Respiratory: YES: Cough, Shortness of breath, SOB with excertion, Sputum Changes, No: Hemoptysis, Orthopnea, Pleuritic Pain, Stridor, Tachypnea, Wheezing, Other Cardiovascular: yes Chest Pain, No Palpitations, No Orthopnea, No Paroxysmal Noc. Dyspnea, No Edema, No Lt Headedness, No Other Gastrointestinal: No Nausea, No Vomiting, No Abdominal Pain, No Diarrhea, No Constipation, No Melena, No Hematochezia, No Other Genitourinary: No Dysuria, No Frequency, No Incontinence, No Hematuria, No Retention, No Discharge, No Urgency, No Pain, No Flank Pain, No Other, No , No , No , No , No , No , No Musculoskeletal: Yes Joint Pain, Yes Joint Stiffness, No Gait Disturbance, No Joint Swelling, No Muscle Pain, No Muscular Weakness , No Pain In:, No Swelling In:, No Other Neurological: No Behavorial Changes, No Bowel/Bladder ControlChng, No Confusion , No Dizziness, No Gait Disturbance, No Headaches, No Impaired Coord/balance, No Memory Loss, No Numbness/Tingling, No Seizures, No Speech Problems, No Tremors, No Visual Changes, No Weakness, No Other Skin: No Dry Skin, No Eczema, No Hair Changes, No Lumps, No Mole Changes, No Mottling, No Nail Changes, No Pruritus, No Rash, No Skin Lesion Changes, No Other, No Acne Physical Exam General: Alert, Oriented X3, Cooperative, moderate distress HEENT: Atraumatic, PERRLA, EOMI, Mucous membr. moist/pink Lungs: Other (mod poor volume, ) Heart: S1S2, no gallops, no murmurs Abdomen: Normal bowel sounds, Soft Extremities: No clubbing, No cyanosis, No edema Skin: No rashes, No breakdown Neuro: Normal speech, Normal tone, Cranial nerves 3-12 NL Vitals Vitals Vital Signs Date Time Temp Pulse Resp B/P (MAP) Pulse Ox O2 Delivery O2 Flow Rate FiO2 12/19/16 16:47 88 166/75 12/19/16 16:34 22 95 Venturi Mask 6.0 12/19/16 15:20 97.9 97.9 Labs Labs Laboratory Tests Test 12/19/16 08:20 12/19/16 08:30 12/19/16 09:00 12/19/16 15:55 O2 Saturation 85 % (92-99) Arterial Blood pH 7.40 (7.35-7.45) Arterial Blood pCO2 at Patient Temp 45 mmHg (35-46) Arterial Blood pO2 at Patient Temp 53 mmHg (65-108) Arterial Blood HCO3 27 mmol/L (21-28) Arterial Blood Base Excess 2 mmol/L (-3-3) FiO2 40 Prothrombin Time 13.4 SEC (11.7-14.0) Prothromb Time International Ratio 1.1 (0.8-1.1) D-Dimer ([place]) 1.36 ug/mlFEU (0.00-0.50) White Blood Count 9.3 x10^3/uL (4.0-11.0) Red Blood Count 3.96 x10^6/uL (3.50-5.40) Hemoglobin 10.4 g/dL (12.0-15.5) Hematocrit 33.1 % (36.0-47.0) Mean Corpuscular Volume 84 fL (79-100) Mean Corpuscular Hemoglobin 26 pg (25-35) Mean Corpuscular Hemoglobin Concent 32 g/dL (31-37) Red Cell Distribution Width 17.2 % (11.5-14.5) Platelet Count 302 x10^3/uL (140-400) Neutrophils (%) (Auto) 83 % (31-73) Lymphocytes (%) (Auto) 11 % (24-48) Monocytes (%) (Auto) 4 % (0-9) Eosinophils (%) (Auto) 1 % (0-3) Basophils (%) (Auto) 1 % (0-3) Neutrophils # (Auto) 7.7 x10^3uL (1.8-7.7) Lymphocytes # (Auto) 1.0 x10^3/uL (1.0-4.8) Monocytes # (Auto) 0.4 x10^3/uL (0.0-1.1) Eosinophils # (Auto) 0.1 x10^3/uL (0.0-0.7) Basophils # (Auto) 0.1 x10^3/uL (0.0-0.2) Sodium Level 141 mmol/L (136-145) Potassium Level 3.6 mmol/L (3.5-5.1) Chloride Level 102 mmol/L (98-107) Carbon Dioxide Level 31 mmol/L (21-32) Anion Gap 8 (6-14) Blood Urea Nitrogen 11 mg/dL (7-20) Creatinine 1.4 mg/dL (0.6-1.0) Estimated GFR (Cockcroft-Gault) 46.6 Glucose Level 197 mg/dL (70-99) Calcium Level 8.7 mg/dL (8.5-10.1) Magnesium Level 1.8 mg/dL (1.8-2.4) Creatine Kinase 95 U/L (26-192) Creatine Kinase MB (Mass) 1.2 ng/mL (0.0-3.6) Creatine Kinase MB Relative Index 1.3 % (0-4) Troponin I Quantitative 0.038 ng/mL (0.000-0.055) FA-Lli-Q-Type Natriuretic Peptide 4148 pg/mL (0-124) Lipase 81 U/L (73-393) Thyroid Stimulating Hormone (TSH) 0.631 uIU/mL (0.358-3.74) Ethyl Alcohol Level < 10 mg/dL (0-10) Urine Collection Type Unknown Urine Color Yellow Urine Clarity Clear Urine pH 7.0 Urine Specific [place] 1.015 Urine Protein >=300 mg/dL (NEG-TRACE) Urine Glucose (UA) 100 mg/dL (NEG) Urine Ketones (Stick) Negative mg/dL (NEG) Urine Blood Negative (NEG) Urine Nitrite Negative (NEG) Urine Bilirubin Negative (NEG) Urine Urobilinogen Dipstick 0.2 mg/dL (0.2 mg/dL) Urine Leukocyte Esterase Negative (NEG) Urine RBC Occ /HPF (0-2) Urine WBC Occ /HPF (0-4) Urine Squamous Epithelial Cells Few /LPF Urine Bacteria Few /HPF (0-FEW) Urine Opiates Screen Neg (NEG) Urine Methadone Screen Neg (NEG) Urine Barbiturates Neg (NEG) Urine Phencyclidine Screen Neg (NEG) Urine Amphetamine/Methamphetamine Neg (NEG) Urine Benzodiazepines Screen Pos (NEG) Urine Cocaine Screen Pos (NEG) Urine Cannabinoids Screen Neg (NEG) Urine Ethyl Alcohol Neg (NEG) Test 12/19/16 16:32 Glucose (Fingerstick) 361 mg/dL (70-99) Laboratory Tests Test 12/19/16 08:20 12/19/16 08:30 12/19/16 09:00 12/19/16 15:55 O2 Saturation 85 % (92-99) Arterial Blood pH 7.40 (7.35-7.45) Arterial Blood pCO2 at Patient Temp 45 mmHg (35-46) Arterial Blood pO2 at Patient Temp 53 mmHg (65-108) Arterial Blood HCO3 27 mmol/L (21-28) Arterial Blood Base Excess 2 mmol/L (-3-3) FiO2 40 Prothrombin Time 13.4 SEC (11.7-14.0) Prothromb Time International Ratio 1.1 (0.8-1.1) D-Dimer ([place]) 1.36 ug/mlFEU (0.00-0.50) White Blood Count 9.3 x10^3/uL (4.0-11.0) Red Blood Count 3.96 x10^6/uL (3.50-5.40) Hemoglobin 10.4 g/dL (12.0-15.5) Hematocrit 33.1 % (36.0-47.0) Mean Corpuscular Volume 84 fL (79-100) Mean Corpuscular Hemoglobin 26 pg (25-35) Mean Corpuscular Hemoglobin Concent 32 g/dL (31-37) Red Cell Distribution Width 17.2 % (11.5-14.5) Platelet Count 302 x10^3/uL (140-400) Neutrophils (%) (Auto) 83 % (31-73) Lymphocytes (%) (Auto) 11 % (24-48) Monocytes (%) (Auto) 4 % (0-9) Eosinophils (%) (Auto) 1 % (0-3) Basophils (%) (Auto) 1 % (0-3) Neutrophils # (Auto) 7.7 x10^3uL (1.8-7.7) Lymphocytes # (Auto) 1.0 x10^3/uL (1.0-4.8) Monocytes # (Auto) 0.4 x10^3/uL (0.0-1.1) Eosinophils # (Auto) 0.1 x10^3/uL (0.0-0.7) Basophils # (Auto) 0.1 x10^3/uL (0.0-0.2) Sodium Level 141 mmol/L (136-145) Potassium Level 3.6 mmol/L (3.5-5.1) Chloride Level 102 mmol/L (98-107) Carbon Dioxide Level 31 mmol/L (21-32) Anion Gap 8 (6-14) Blood Urea Nitrogen 11 mg/dL (7-20) Creatinine 1.4 mg/dL (0.6-1.0) Estimated GFR (Cockcroft-Gault) 46.6 Glucose Level 197 mg/dL (70-99) Calcium Level 8.7 mg/dL (8.5-10.1) Magnesium Level 1.8 mg/dL (1.8-2.4) Creatine Kinase 95 U/L (26-192) Creatine Kinase MB (Mass) 1.2 ng/mL (0.0-3.6) Creatine Kinase MB Relative Index 1.3 % (0-4) Troponin I Quantitative 0.038 ng/mL (0.000-0.055) XL-Skv-O-Type Natriuretic Peptide 4148 pg/mL (0-124) Lipase 81 U/L (73-393) Thyroid Stimulating Hormone (TSH) 0.631 uIU/mL (0.358-3.74) Ethyl Alcohol Level < 10 mg/dL (0-10) Urine Collection Type Unknown Urine Color Yellow Urine Clarity Clear Urine pH 7.0 Urine Specific [place] 1.015 Urine Protein >=300 mg/dL (NEG-TRACE) Urine Glucose (UA) 100 mg/dL (NEG) Urine Ketones (Stick) Negative mg/dL (NEG) Urine Blood Negative (NEG) Urine Nitrite Negative (NEG) Urine Bilirubin Negative (NEG) Urine Urobilinogen Dipstick 0.2 mg/dL (0.2 mg/dL) Urine Leukocyte Esterase Negative (NEG) Urine RBC Occ /HPF (0-2) Urine WBC Occ /HPF (0-4) Urine Squamous Epithelial Cells Few /LPF Urine Bacteria Few /HPF (0-FEW) Urine Opiates Screen Neg (NEG) Urine Methadone Screen Neg (NEG) Urine Barbiturates Neg (NEG) Urine Phencyclidine Screen Neg (NEG) Urine Amphetamine/Methamphetamine Neg (NEG) Urine Benzodiazepines Screen Pos (NEG) Urine Cocaine Screen Pos (NEG) Urine Cannabinoids Screen Neg (NEG) Urine Ethyl Alcohol Neg (NEG) Test 12/19/16 16:32 Glucose (Fingerstick) 361 mg/dL (70-99) VTE Prophylaxis Ordered VTE Prophylaxis Devices: Yes VTE Pharmacological Prophylaxi: Yes Assessment/Plan Assessment/Plan acute dyspnea and shortness of breath COPD, ae with sinusitis, start broad abx CHF, acute on chronic systolic failure +++ COCAINE positive urine, just left here 4 days ago, went home from the hospital and used cocaine, + substance abuse, morbid obesity, BMI 49 Dm2 poor control CKD 3 in htn noncompliance with medical advice REJI HOLLIDAY MD Dec 19, 2016 17:43
[2016-12-19] MEDS ORDERED: PIP/TAZO PER PHARMACY MC PRN (17:45)
[2016-12-19] MEDS: PIPERACILLIN/TAZOBACTAM 4.5 GM in IV NORMAL SALINE 100ML 100 ML IV SCH ×2 (18:10→23:00)
[2016-12-19] MEDS ORDERED: VANCOMYCIN 2 GM in IV NORMAL SALINE 500ML BAG 500 ML IV ONE (18:30)
[2016-12-19] MEDS: BUDESONIDE 0.5 MG/2 ML NEBU. NEB SCH (19:35)
[2016-12-19 19:45] VITALS: BP 138/64
[2016-12-19] MEDS: OXYMETAZOLINE 0.05% NASAL SPRAY 30ML BOTTLE. NS SCH (21:00)
[2016-12-19] MEDS ORDERED: INSULIN DETEMIR 300 UNITS/3 ML INSULN.PEN. SQ SCH (21:00)
[2016-12-19] MEDS: DICLOFENAC SODIUM 1% TOPICAL GEL 100GM TUBE. TP SCH (21:00)
[2016-12-19] MEDS: DOXYCYCLINE HYCLATE 100 MG TABLET PO SCH (21:00)
[2016-12-19] MEDS: ATORVASTATIN CALCIUM 40 MG TABLET. PO SCH (21:01)
[2016-12-19] MEDS: FERROUS SULFATE 325 MG TABLET. PO SCH (21:01)
[2016-12-19] MEDS: cloNIDine HCL 0.2 MG TABLET PO SCH (21:01)
[2016-12-19] MEDS: VANCOMYCIN PER PHARMACY MC PRN (21:13)
[2016-12-19 23:10] VITALS: BP 165/73
[2016-12-20 03:05] VITALS: BP 116/53
[2016-12-20 03:48] LABS: BASO % 1 % (0-3); EOS % 1 % (0-3); HEMATOCRIT 25.2 % (36.0-47.0); HEMOGLOBIN 7.9 g/dL (12.0-15.5); LYMPH # 0.6 x10^3/uL (1.0-4.8); LYMPH % 11 % (24-48); MEAN CORPUSCULAR HEMOGLOBIN 27 pg (25-35); MEAN CORPUSCULAR HGB CONC 31 g/dL (31-37); MEAN CORPUSCULAR VOLUME 84 fL (79-100); MONO % 10 % (0-9); NEUT % 78 % (31-73); PLATELET COUNT 227 x10^3/uL (140-400); RED BLOOD COUNT 2.99 x10^6/uL (3.50-5.40); RED CELL DISTRIBUTION WIDTH 17.1 % (11.5-14.5); WHITE BLOOD COUNT 5.4 x10^3/uL (4.0-11.0)
[2016-12-20 04:08] LABS: CALCIUM 7.6 mg/dL (8.5-10.1); CREATININE 1.9 mg/dL (0.6-1.0); GFR 32.7
[2016-12-20] MEDS: PIPERACILLIN/TAZOBACTAM 4.5 GM in IV NORMAL SALINE 100ML 100 ML IV SCH ×4 (05:39→23:31)
[2016-12-20] MEDS: oxyCODONE/APAP 10/325 1 TAB TABLET PO PRN ×4 (05:41→20:51)
[2016-12-20 06:04] LABS: NUCLEATED RBC 1
[2016-12-20 06:05] LABS: ANISOCYTOSIS SLIGHT; PLT ESTIMATE ADEQUATE (ADEQUATE)
--- NOTE | 2016-12-20 06:52 | EKG ---
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
[2016-12-20 07:00] VITALS: BP 129/55
[2016-12-20] MEDS: glipiZIDE 5 MG TABLET PO SCH ×2 (08:20→17:13)
[2016-12-20] MEDS: DOXYCYCLINE HYCLATE 100 MG TABLET PO SCH (08:20)
[2016-12-20] MEDS: amLODIPine BESYLATE 10 MG TABLET PO SCH (08:20)
[2016-12-20] MEDS: PANTOPRAZOLE 40 MG TABLET.DR. PO SCH (08:21)
[2016-12-20] MEDS: FUROSEMIDE 40 MG TABLET. PO SCH (08:21)
[2016-12-20] MEDS: CARVEDILOL 12.5 MG TABLET. PO SCH ×2 (08:21→17:14)
[2016-12-20] MEDS: cloNIDine HCL 0.2 MG TABLET PO SCH ×2 (08:22→20:52)
[2016-12-20] MEDS: OXYMETAZOLINE 0.05% NASAL SPRAY 30ML BOTTLE. NS SCH ×2 (08:24→20:51)
[2016-12-20] MEDS: DICLOFENAC SODIUM 1% TOPICAL GEL 100GM TUBE. TP SCH ×3 (08:24→20:58)
[2016-12-20] MEDS: BUDESONIDE 0.5 MG/2 ML NEBU. NEB SCH ×2 (08:26→19:17)
[2016-12-20] MEDS: IPRATRPIUM/ALBUTEROL 0.5/2.5MG 3 ML NEBU. NEB SCH ×2 (08:26→12:41)
[2016-12-20] MEDS: INSULIN ASPART 300 UNITS/3 ML INSULN.PEN SQ SCH ×3 (08:32→17:19)
[2016-12-20] MEDS ORDERED: INSULIN DETEMIR 300 UNITS/3 ML INSULN.PEN. SQ ONE (10:30)
--- NOTE | 2016-12-20 10:56 | PDOC ---
PROGRESS NOTES Chief Complaint Chief Complaint acute dyspnea and shortness of breath COPD, ae with sinusitis, CHF, acute on chronic systolic failure denies cocaine use, + urine, , morbid obesity, BMI 50 Dm2 poor control CKD 3 w/ worsenign cr today History of Present Illness History of Present Illness cough, dyspnea today no change in stool, stools normal, no bleeding she denies any substance abuse, report that she kissed a man 2 weeks ago who had been using cocaine she is upset about inhl budesonide that it is causing her hyperglycemia PULM and CV and renal consulted Vitals Vitals Vital Signs Date Time Temp Pulse Resp B/P (MAP) Pulse Ox O2 Delivery O2 Flow Rate FiO2 12/20/16 08:28 96 Nasal Cannula 4.0 12/20/16 08:22 69 129/59 12/20/16 07:00 98.2 20 98.2 Physical Exam General: Alert, Oriented X3, Cooperative, mild distress Heart: Regular rate Lungs: Clear Abdomen: Normal bowel sounds, Soft Extremities: No clubbing, No cyanosis, No edema Skin: No rashes, No breakdown Labs LABS Laboratory Tests Test 12/19/16 15:55 12/19/16 16:32 12/20/16 03:40 12/20/16 07:23 Urine Collection Type Unknown Urine Color Yellow Urine Clarity Clear Urine pH 7.0 Urine Specific [place] 1.015 Urine Protein >=300 mg/dL (NEG-TRACE) Urine Glucose (UA) 100 mg/dL (NEG) Urine Ketones (Stick) Negative mg/dL (NEG) Urine Blood Negative (NEG) Urine Nitrite Negative (NEG) Urine Bilirubin Negative (NEG) Urine Urobilinogen Dipstick 0.2 mg/dL (0.2 mg/dL) Urine Leukocyte Esterase Negative (NEG) Urine RBC Occ /HPF (0-2) Urine WBC Occ /HPF (0-4) Urine Squamous Epithelial Cells Few /LPF Urine Bacteria Few /HPF (0-FEW) Urine Opiates Screen Neg (NEG) Urine Methadone Screen Neg (NEG) Urine Barbiturates Neg (NEG) Urine Phencyclidine Screen Neg (NEG) Urine Amphetamine/Methamphetamine Neg (NEG) Urine Benzodiazepines Screen Pos (NEG) Urine Cocaine Screen Pos (NEG) Urine Cannabinoids Screen Neg (NEG) Urine Ethyl Alcohol Neg (NEG) Glucose (Fingerstick) 361 mg/dL (70-99) 279 mg/dL (70-99) White Blood Count 5.4 x10^3/uL (4.0-11.0) Red Blood Count 2.99 x10^6/uL (3.50-5.40) Hemoglobin 7.9 g/dL (12.0-15.5) Hematocrit 25.2 % (36.0-47.0) Mean Corpuscular Volume 84 fL (79-100) Mean Corpuscular Hemoglobin 27 pg (25-35) Mean Corpuscular Hemoglobin Concent 31 g/dL (31-37) Red Cell Distribution Width 17.1 % (11.5-14.5) Platelet Count 227 x10^3/uL (140-400) Neutrophils (%) (Auto) 78 % (31-73) Lymphocytes (%) (Auto) 11 % (24-48) Monocytes (%) (Auto) 10 % (0-9) Eosinophils (%) (Auto) 1 % (0-3) Basophils (%) (Auto) 1 % (0-3) Neutrophils # (Auto) 4.2 x10^3uL (1.8-7.7) Lymphocytes # (Auto) 0.6 x10^3/uL (1.0-4.8) Monocytes # (Auto) 0.5 x10^3/uL (0.0-1.1) Eosinophils # (Auto) 0.0 x10^3/uL (0.0-0.7) Basophils # (Auto) 0.0 x10^3/uL (0.0-0.2) Segmented Neutrophils % 90 % (35-66) Lymphocytes % 7 % (24-48) Monocytes % 3 % (0-10) Nucleated Red Blood Cells 1 Platelet Estimate Adequate (ADEQUATE) Large Platelets Present Anisocytosis Slight Sodium Level 137 mmol/L (136-145) Potassium Level 4.0 mmol/L (3.5-5.1) Chloride Level 102 mmol/L (98-107) Carbon Dioxide Level 30 mmol/L (21-32) Anion Gap 5 (6-14) Blood Urea Nitrogen 20 mg/dL (7-20) Creatinine 1.9 mg/dL (0.6-1.0) Estimated GFR (Cockcroft-Gault) 32.7 Glucose Level 346 mg/dL (70-99) Calcium Level 7.6 mg/dL (8.5-10.1) Review of Systems Review of Systems cough, dyspnea and weakness Assessment and Plan Assessmemt and Plan Problems Medical Problems: (1) Accelerated hypertension Status: Acute (2) Acute respiratory failure Status: Acute (3) CHF (congestive heart failure) Status: Acute Problems: Comment Review of Relevant I have reviewed the following items jessee (where applicable) has been applied. Labs Laboratory Tests Test 12/19/16 08:20 12/19/16 08:30 12/19/16 09:00 12/19/16 15:55 O2 Saturation 85 % (92-99) Arterial Blood pH 7.40 (7.35-7.45) Arterial Blood pCO2 at Patient Temp 45 mmHg (35-46) Arterial Blood pO2 at Patient Temp 53 mmHg (65-108) Arterial Blood HCO3 27 mmol/L (21-28) Arterial Blood Base Excess 2 mmol/L (-3-3) FiO2 40 Prothrombin Time 13.4 SEC (11.7-14.0) Prothromb Time International Ratio 1.1 (0.8-1.1) D-Dimer ([place]) 1.36 ug/mlFEU (0.00-0.50) White Blood Count 9.3 x10^3/uL (4.0-11.0) Red Blood Count 3.96 x10^6/uL (3.50-5.40) Hemoglobin 10.4 g/dL (12.0-15.5) Hematocrit 33.1 % (36.0-47.0) Mean Corpuscular Volume 84 fL (79-100) Mean Corpuscular Hemoglobin 26 pg (25-35) Mean Corpuscular Hemoglobin Concent 32 g/dL (31-37) Red Cell Distribution Width 17.2 % (11.5-14.5) Platelet Count 302 x10^3/uL (140-400) Neutrophils (%) (Auto) 83 % (31-73) Lymphocytes (%) (Auto) 11 % (24-48) Monocytes (%) (Auto) 4 % (0-9) Eosinophils (%) (Auto) 1 % (0-3) Basophils (%) (Auto) 1 % (0-3) Neutrophils # (Auto) 7.7 x10^3uL (1.8-7.7) Lymphocytes # (Auto) 1.0 x10^3/uL (1.0-4.8) Monocytes # (Auto) 0.4 x10^3/uL (0.0-1.1) Eosinophils # (Auto) 0.1 x10^3/uL (0.0-0.7) Basophils # (Auto) 0.1 x10^3/uL (0.0-0.2) Sodium Level 141 mmol/L (136-145) Potassium Level 3.6 mmol/L (3.5-5.1) Chloride Level 102 mmol/L (98-107) Carbon Dioxide Level 31 mmol/L (21-32) Anion Gap 8 (6-14) Blood Urea Nitrogen 11 mg/dL (7-20) Creatinine 1.4 mg/dL (0.6-1.0) Estimated GFR (Cockcroft-Gault) 46.6 Glucose Level 197 mg/dL (70-99) Calcium Level 8.7 mg/dL (8.5-10.1) Magnesium Level 1.8 mg/dL (1.8-2.4) Creatine Kinase 95 U/L (26-192) Creatine Kinase MB (Mass) 1.2 ng/mL (0.0-3.6) Creatine Kinase MB Relative Index 1.3 % (0-4) Troponin I Quantitative 0.038 ng/mL (0.000-0.055) IA-Sxi-C-Type Natriuretic Peptide 4148 pg/mL (0-124) Lipase 81 U/L (73-393) Thyroid Stimulating Hormone (TSH) 0.631 uIU/mL (0.358-3.74) Ethyl Alcohol Level < 10 mg/dL (0-10) Urine Collection Type Unknown Urine Color Yellow Urine Clarity Clear Urine pH 7.0 Urine Specific [place] 1.015 Urine Protein >=300 mg/dL (NEG-TRACE) Urine Glucose (UA) 100 mg/dL (NEG) Urine Ketones (Stick) Negative mg/dL (NEG) Urine Blood Negative (NEG) Urine Nitrite Negative (NEG) Urine Bilirubin Negative (NEG) Urine Urobilinogen Dipstick 0.2 mg/dL (0.2 mg/dL) Urine Leukocyte Esterase Negative (NEG) Urine RBC Occ /HPF (0-2) Urine WBC Occ /HPF (0-4) Urine Squamous Epithelial Cells Few /LPF Urine Bacteria Few /HPF (0-FEW) Urine Opiates Screen Neg (NEG) Urine Methadone Screen Neg (NEG) Urine Barbiturates Neg (NEG) Urine Phencyclidine Screen Neg (NEG) Urine Amphetamine/Methamphetamine Neg (NEG) Urine Benzodiazepines Screen Pos (NEG) Urine Cocaine Screen Pos (NEG) Urine Cannabinoids Screen Neg (NEG) Urine Ethyl Alcohol Neg (NEG) Test 12/19/16 16:32 12/20/16 03:40 12/20/16 07:23 Glucose (Fingerstick) 361 mg/dL (70-99) 279 mg/dL (70-99) White Blood Count 5.4 x10^3/uL (4.0-11.0) Red Blood Count 2.99 x10^6/uL (3.50-5.40) Hemoglobin 7.9 g/dL (12.0-15.5) Hematocrit 25.2 % (36.0-47.0) Mean Corpuscular Volume 84 fL (79-100) Mean Corpuscular Hemoglobin 27 pg (25-35) Mean Corpuscular Hemoglobin Concent 31 g/dL (31-37) Red Cell Distribution Width 17.1 % (11.5-14.5) Platelet Count 227 x10^3/uL (140-400) Neutrophils (%) (Auto) 78 % (31-73) Lymphocytes (%) (Auto) 11 % (24-48) Monocytes (%) (Auto) 10 % (0-9) Eosinophils (%) (Auto) 1 % (0-3) Basophils (%) (Auto) 1 % (0-3) Neutrophils # (Auto) 4.2 x10^3uL (1.8-7.7) Lymphocytes # (Auto) 0.6 x10^3/uL (1.0-4.8) Monocytes # (Auto) 0.5 x10^3/uL (0.0-1.1) Eosinophils # (Auto) 0.0 x10^3/uL (0.0-0.7) Basophils # (Auto) 0.0 x10^3/uL (0.0-0.2) Segmented Neutrophils % 90 % (35-66) Lymphocytes % 7 % (24-48) Monocytes % 3 % (0-10) Nucleated Red Blood Cells 1 Platelet Estimate Adequate (ADEQUATE) Large Platelets Present Anisocytosis Slight Sodium Level 137 mmol/L (136-145) Potassium Level 4.0 mmol/L (3.5-5.1) Chloride Level 102 mmol/L (98-107) Carbon Dioxide Level 30 mmol/L (21-32) Anion Gap 5 (6-14) Blood Urea Nitrogen 20 mg/dL (7-20) Creatinine 1.9 mg/dL (0.6-1.0) Estimated GFR (Cockcroft-Gault) 32.7 Glucose Level 346 mg/dL (70-99) Calcium Level 7.6 mg/dL (8.5-10.1) Laboratory Tests Test 12/19/16 15:55 12/19/16 16:32 12/20/16 03:40 12/20/16 07:23 Urine Collection Type Unknown Urine Color Yellow Urine Clarity Clear Urine pH 7.0 Urine Specific [place] 1.015 Urine Protein >=300 mg/dL (NEG-TRACE) Urine Glucose (UA) 100 mg/dL (NEG) Urine Ketones (Stick) Negative mg/dL (NEG) Urine Blood Negative (NEG) Urine Nitrite Negative (NEG) Urine Bilirubin Negative (NEG) Urine Urobilinogen Dipstick 0.2 mg/dL (0.2 mg/dL) Urine Leukocyte Esterase Negative (NEG) Urine RBC Occ /HPF (0-2) Urine WBC Occ /HPF (0-4) Urine Squamous Epithelial Cells Few /LPF Urine Bacteria Few /HPF (0-FEW) Urine Opiates Screen Neg (NEG) Urine Methadone Screen Neg (NEG) Urine Barbiturates Neg (NEG) Urine Phencyclidine Screen Neg (NEG) Urine Amphetamine/Methamphetamine Neg (NEG) Urine Benzodiazepines Screen Pos (NEG) Urine Cocaine Screen Pos (NEG) Urine Cannabinoids Screen Neg (NEG) Urine Ethyl Alcohol Neg (NEG) Glucose (Fingerstick) 361 mg/dL (70-99) 279 mg/dL (70-99) White Blood Count 5.4 x10^3/uL (4.0-11.0) Red Blood Count 2.99 x10^6/uL (3.50-5.40) Hemoglobin 7.9 g/dL (12.0-15.5) Hematocrit 25.2 % (36.0-47.0) Mean Corpuscular Volume 84 fL (79-100) Mean Corpuscular Hemoglobin 27 pg (25-35) Mean Corpuscular Hemoglobin Concent 31 g/dL (31-37) Red Cell Distribution Width 17.1 % (11.5-14.5) Platelet Count 227 x10^3/uL (140-400) Neutrophils (%) (Auto) 78 % (31-73) Lymphocytes (%) (Auto) 11 % (24-48) Monocytes (%) (Auto) 10 % (0-9) Eosinophils (%) (Auto) 1 % (0-3) Basophils (%) (Auto) 1 % (0-3) Neutrophils # (Auto) 4.2 x10^3uL (1.8-7.7) Lymphocytes # (Auto) 0.6 x10^3/uL (1.0-4.8) Monocytes # (Auto) 0.5 x10^3/uL (0.0-1.1) Eosinophils # (Auto) 0.0 x10^3/uL (0.0-0.7) Basophils # (Auto) 0.0 x10^3/uL (0.0-0.2) Segmented Neutrophils % 90 % (35-66) Lymphocytes % 7 % (24-48) Monocytes % 3 % (0-10) Nucleated Red Blood Cells 1 Platelet Estimate Adequate (ADEQUATE) Large Platelets Present Anisocytosis Slight Sodium Level 137 mmol/L (136-145) Potassium Level 4.0 mmol/L (3.5-5.1) Chloride Level 102 mmol/L (98-107) Carbon Dioxide Level 30 mmol/L (21-32) Anion Gap 5 (6-14) Blood Urea Nitrogen 20 mg/dL (7-20) Creatinine 1.9 mg/dL (0.6-1.0) Estimated GFR (Cockcroft-Gault) 32.7 Glucose Level 346 mg/dL (70-99) Calcium Level 7.6 mg/dL (8.5-10.1) Medications Current Medications Dexamethasone Sodium Phosphate (Decadron) 10 mg 1X ONCE IV Last administered on 12/19/16 08:51; Start 12/19/16 at 08:45; Stop 12/19/16 at 08:46; Status DC Albuterol/ Ipratropium (Duoneb) 3 ml 1X ONCE NEB Last administered on 09:08; Start 12/19/16 at 09:15; Stop 12/19/16 at 09:16; Status DC Albuterol Sulfate (Ventolin Neb Soln) 10 mg 1X ONCE CONT NEB Last administered on 12/19/16 09:08; Start 12/19/16 at 09:15; Stop 12/19/16 at 09:16; Status DC Oxycodone/ Acetaminophen (Percocet 10/325) 1 tab 1X ONCE PO Last administered on 12/19/16 09:18; Start 12/19/16 at 09:15; Stop 12/19/16 at 09:16; Status DC Hydrochlorothiazide (Microzide) 12.5 mg 1X ONCE PO Last administered on 09:17; Start 12/19/16 at 09:15; Stop 12/19/16 at 09:16; Status DC Amlodipine Besylate (Norvasc) 10 mg 1X ONCE PO Last administered on 12/19/16 09:17; Start 12/19/16 at 09:15; Stop 12/19/16 at 09:16; Status DC Iohexol (Omnipaque 300 Mg/ml) 60 ml 1X ONCE IV Last administered on 12/19/16 10:26; Start 12/19/16 at 10:15; Stop 12/19/16 at 10:17; Status DC Info (Do NOT chart on this entry -- for MONITORING) 1 each PRN DAILY PRN MC SEE COMMENTS; Start 12/19/16 at 10:30; Stop 12/21/16 at 10:29 Furosemide (Lasix) 40 mg 1X ONCE IVP Last administered on 12/19/16 12:16; Start 12/19/16 at 11:45; Stop 12/19/16 at 11:46; Status DC Ondansetron HCl (Zofran) 4 mg PRN Q8HRS PRN IV NAUSEA/VOMITING; Start 12/19/16 at 13:00; Stop 12/20/16 at 12:59 Morphine Sulfate 2 mg PRN Q2HR PRN IV PAIN; Start 12/19/16 at 13:00; Stop at 12:59 Acetaminophen (Tylenol) 650 mg PRN Q4HRS PRN PO FEVER; Start 12/19/16 at 13:00; Stop 12/20/16 at 12:59 Albuterol/ Ipratropium (Duoneb) 3 ml RTQID NEB Last administered on 12/20/16 08 :26; Start 12/19/16 at 16:00; Stop 12/20/16 at 15:59 Labetalol HCl (Normodyne) 20 mg PRN Q2HR PRN IVP HYPERTENSION, SEE COMMENTS Last administered on 12/19/16 13:39; Start 12/19/16 at 13:00 Amlodipine Besylate (Norvasc) 10 mg DAILY PO Last administered on 12/20/16 08: 20; Start 12/20/16 at 09:00 Atorvastatin Calcium (Lipitor) 40 mg QHS PO Last administered on 12/19/16 21:01 ; Start 12/19/16 at 21:00 Clonidine HCl (Catapres) 0.2 mg BID PO Last administered on 12/20/16 08:22; Start 12/19/16 at 21:00 Diclofenac Sodium (Voltaren) 1 sohan BID TP Last administered on 12/20/16 08:24; Start 12/19/16 at 21:00 Doxycycline Hyclate (Vibra-Tab) 100 mg BID PO Last administered on 12/20/16 08: 20; Start 12/19/16 at 21:00 Ferrous Sulfate (Feosol) 325 mg QHS PO Last administered on 12/19/16 21:01; Start 12/19/16 at 21:00 Furosemide (Lasix) 40 mg DAILY PO Last administered on 12/20/16 08:21; Start at 15:30 Hydralazine HCl (Apresoline) 100 mg Q8HRS PO Last administered on 12/20/16 05: 39; Start 12/19/16 at 15:30 Insulin Aspart (NovoLOG) 10 units TIDAC SQ Last administered on 12/20/16 08:32 ; Start 12/19/16 at 16:30; Stop 12/20/16 at 10:46; Status DC Oxycodone/ Acetaminophen (Percocet 10/325) 1 tab PRN Q4HRS PRN PO pain Last administered on 12/20/16 05:41; Start 12/19/16 at 15:00 Albuterol Sulfate (Ventolin Neb Soln) 2.5 mg PRN Q4HRS PRN NEB SHORTNESS OF BREATH; Start 12/19/16 at 15:15 Carvedilol (Coreg) 25 mg BIDWMEALS PO Last administered on 12/20/16 08:21; Start 12/19/16 at 17:00 Glipizide (Glucotrol) 10 mg BIDBFRMEAL PO Last administered on 12/20/16 08:20; Start 12/19/16 at 16:30 Insulin Detemir (Levemir) 29 units QHS SQ Last administered on 12/19/16 21:08; Start 12/19/16 at 21:00; Stop 12/20/16 at 10:46; Status DC Pantoprazole Sodium (Protonix) 40 mg DAILYAC PO Last administered on 12/20/16 08:21; Start 12/20/16 at 07:30 Vancomycin HCl (Vanco Per Pharmacy) 1 each PRN DAILY PRN MC SEE COMMENTS Last administered on 12/19/16 21:13; Start 12/19/16 at 17:45 Piperacillin Sod/ Tazobactam Sod (Zosyn Per Pharmacy) 1 each PRN DAILY PRN MC SEE COMMENTS; Start 12/19/16 at 17:45 Budesonide (Pulmicort) 0.5 mg RTBID NEB Last administered on 12/20/16 08:26; Start 12/19/16 at 20:00 Oxymetazoline HCl (Afrin) 2 spray BID NS Last administered on 12/20/16 08:24; Start 12/19/16 at 21:00 Piperacillin Sod/ Tazobactam Sod 4.5 gm/Sodium Chloride 100 ml @ 200 mls/hr Q6HRS IV Last administered on 12/20/16 05:39; Start 12/19/16 at 18:00 Vancomycin HCl 2 gm/Sodium Chloride 500 ml @ 250 mls/hr ONCE ONCE IV Last administered on 12/19/16 19:09; Start 12/19/16 at 18:30; Stop 12/19/16 at 20:29; Status DC Vancomycin HCl 2 gm/Sodium Chloride 500 ml @ 250 mls/hr Q24H IV ; Start at 19:00 Vancomycin HCl 1 each 1X ONCE MC ; Start 12/21/16 at 18:30; Stop 12/21/16 at 18: 31 Insulin Detemir (Levemir) 15 units 1X ONCE SQ Last administered on 12/20/16t 10 :32; Start 12/20/16 at 10:30; Stop 12/20/16 at 10:31; Status DC Insulin Aspart (NovoLOG) 14 units TIDAC SQ ; Start 12/20/16 at 11:30 Insulin Detemir (Levemir) 35 units QHS SQ ; Start 12/20/16 at 21:00 Active Scripts Active Feosol (Ferrous Sulfate) 325 Mg Tablet 325 Mg PO QHS Voltaren (Diclofenac Sodium) 100 Gm Gel..gram. 1 Sohan TP BID Doxycycline Hyclate 100 Mg Tablet 100 Mg PO BID Percocet 10-325 Mg Tablet (Oxycodone/Acetaminophen) 1 Each Tablet 1 Tab PO Q4- 6HRS Amlodipine Besylate 10 Mg Tablet 10 Mg PO DAILY Novolog Flexpen (Insulin Aspart) 100 Unit/1 Ml Insuln.pen 10 Units SQ TIDAC Hydralazine Hcl 50 Mg Tablet 100 Mg PO Q8HRS Furosemide 40 Mg Tablet 40 Mg PO DAILY Reported Wang Hummel (Insulin Glargine,Hum.rec.anlog) 300 Unit/1 Ml Insuln.pen 36 Unit SQ HS Atorvastatin Calcium 40 Mg Tablet 1 Tab PO DAILY Omeprazole 40 Mg Capsule.dr 1 Cap PO DAILY Ventolin Hfa Inhaler (Albuterol Sulfate) 18 Gm Hfa.aer.ad 2 Puff IH PRN Q4-6HRS Glipizide 10 Mg Tablet 1 Tab PO BIDAC Clonidine Hcl 0.2 Mg Tablet 1 Tab PO BID Coreg (Carvedilol) 25 Mg Tablet 1 Tab PO [id number] Vitals/I & O Vital Sign - Last 24 Hours 12/19/16 12/19/16 12/19/16 12/19/16 11:00 12:00 12:30 13:15 Temp 98.2 98.2 Pulse 92 90 90 91 Resp 24 23 25 22 B/P (MAP) 201/85 (123) 199/78 (118) 184/87 (119) 178/75 (109) Pulse Ox 93 96 98 93 O2 Delivery Venturi Mask O2 Flow Rate 6.0 12/19/16 12/19/16 12/19/16 12/19/16 13:39 15:18 15:20 15:32 Temp 97.9 97.9 Pulse 89 84 Resp 22 22 B/P (MAP) 178/75 161/61 (94) Pulse Ox 95 96 O2 Delivery Venturi Mask Venturi Mask Venturi Mask O2 Flow Rate 6.0 6.0 6.0 12/19/16 12/19/16 12/19/16 12/19/16 15:33 15:53 16:34 16:47 Pulse 83 88 B/P (MAP) 161/61 166/75 Pulse Ox 94 95 O2 Delivery Venturi Mask O2 Flow Rate 12.0 12/19/16 12/19/16 12/19/16 12/19/16 19:09 19:37 19:45 20:17 Temp 98.9 98.9 Pulse 84 Resp B/P (MAP) 138/64 (88) Pulse Ox 96 92 O2 Delivery Nasal Cannula Nasal Cannula Room Air Venturi Mask O2 Flow Rate 6.0 5.0 6.0 12/19/16 12/19/16 12/19/16 12/19/16 21:01 21:01 22:59 23:10 Temp 98.3 98.3 Pulse 84 84 79 Resp B/P (MAP) 138/64 138/64 165/73 (103) Pulse Ox 91 O2 Delivery Nasal Cannula Room Air O2 Flow Rate 6.0 12/20/16 12/20/16 12/20/16 12/20/16 01:10 03:05 04:20 05:39 Temp 97.2 97.2 Pulse 72 72 Resp 22 B/P (MAP) 116/53 (74) 116/53 Pulse Ox 94 92 94 O2 Delivery BiPAP/CPAP 12/20/16 12/20/16 12/20/16 12/20/16 05:41 06:40 07:00 08:00 Temp 98.2 98.2 Pulse 69 Resp 20 20 20 B/P (MAP) 129/55 (79) Pulse Ox 98 O2 Delivery Nasal Cannula Nasal Cannula Venturi Mask Nasal Cannula O2 Flow Rate 4.0 5.0 4.0 4.0 12/20/16 12/20/16 12/20/16 12/20/16 08:20 08:21 08:22 08:28 Pulse 69 69 69 B/P (MAP) 129/59 129/59 129/59 Pulse Ox 96 O2 Delivery Nasal Cannula O2 Flow Rate 4.0 Intake and Output 12/19/16 12/19/16 12/20/16 15:00 23:00 07:00 Intake Total 240 ml 1780 ml Output Total 500 ml Balance -260 ml 1780 ml REJI HOLLIDAY MD Dec 20, 2016 10:56
[2016-12-20 11:00] VITALS: BP 127/54
[2016-12-20] MEDS: VANCOMYCIN PER PHARMACY MC PRN (11:16)
--- NOTE | 2016-12-20 12:00 | PDOC ---
CARDIO Progress Notes Date and Time Date of Service 12/20/16 Time of Evaluation 1125 Subjective Subjective: No Chest Pain, No shortness of breath, No Palpitations Vitals Vitals Vital Signs Date Time Temp Pulse Resp B/P (MAP) Pulse Ox O2 Delivery O2 Flow Rate FiO2 12/20/16 11:22 Nasal Cannula 4.0 12/20/16 11:00 98.7 86 18 127/54 (78) 93 98.7 Weight Weight [ ] Input and Output Intake and Output Intake and Output 12/20/16 07:00 Intake Total 2020 ml Output Total 500 ml Balance 1520 ml Intake Oral 1620 ml IV Total 400 ml Output Urine Total 500 ml Laboratory Labs Laboratory Tests Test 12/19/16 15:55 12/19/16 16:32 12/20/16 03:40 12/20/16 07:23 Urine Collection Type Unknown Urine Color Yellow Urine Clarity Clear Urine pH 7.0 Urine Specific [place] 1.015 Urine Protein >=300 mg/dL (NEG-TRACE) Urine Glucose (UA) 100 mg/dL (NEG) Urine Ketones (Stick) Negative mg/dL (NEG) Urine Blood Negative (NEG) Urine Nitrite Negative (NEG) Urine Bilirubin Negative (NEG) Urine Urobilinogen Dipstick 0.2 mg/dL (0.2 mg/dL) Urine Leukocyte Esterase Negative (NEG) Urine RBC Occ /HPF (0-2) Urine WBC Occ /HPF (0-4) Urine Squamous Epithelial Cells Few /LPF Urine Bacteria Few /HPF (0-FEW) Urine Opiates Screen Neg (NEG) Urine Methadone Screen Neg (NEG) Urine Barbiturates Neg (NEG) Urine Phencyclidine Screen Neg (NEG) Urine Amphetamine/Methamphetamine Neg (NEG) Urine Benzodiazepines Screen Pos (NEG) Urine Cocaine Screen Pos (NEG) Urine Cannabinoids Screen Neg (NEG) Urine Ethyl Alcohol Neg (NEG) Glucose (Fingerstick) 361 mg/dL (70-99) 279 mg/dL (70-99) White Blood Count 5.4 x10^3/uL (4.0-11.0) Red Blood Count 2.99 x10^6/uL (3.50-5.40) Hemoglobin 7.9 g/dL (12.0-15.5) Hematocrit 25.2 % (36.0-47.0) Mean Corpuscular Volume 84 fL (79-100) Mean Corpuscular Hemoglobin 27 pg (25-35) Mean Corpuscular Hemoglobin Concent 31 g/dL (31-37) Red Cell Distribution Width 17.1 % (11.5-14.5) Platelet Count 227 x10^3/uL (140-400) Neutrophils (%) (Auto) 78 % (31-73) Lymphocytes (%) (Auto) 11 % (24-48) Monocytes (%) (Auto) 10 % (0-9) Eosinophils (%) (Auto) 1 % (0-3) Basophils (%) (Auto) 1 % (0-3) Neutrophils # (Auto) 4.2 x10^3uL (1.8-7.7) Lymphocytes # (Auto) 0.6 x10^3/uL (1.0-4.8) Monocytes # (Auto) 0.5 x10^3/uL (0.0-1.1) Eosinophils # (Auto) 0.0 x10^3/uL (0.0-0.7) Basophils # (Auto) 0.0 x10^3/uL (0.0-0.2) Segmented Neutrophils % 90 % (35-66) Lymphocytes % 7 % (24-48) Monocytes % 3 % (0-10) Nucleated Red Blood Cells 1 Platelet Estimate Adequate (ADEQUATE) Large Platelets Present Anisocytosis Slight Sodium Level 137 mmol/L (136-145) Potassium Level 4.0 mmol/L (3.5-5.1) Chloride Level 102 mmol/L (98-107) Carbon Dioxide Level 30 mmol/L (21-32) Anion Gap 5 (6-14) Blood Urea Nitrogen 20 mg/dL (7-20) Creatinine 1.9 mg/dL (0.6-1.0) Estimated GFR (Cockcroft-Gault) 32.7 Glucose Level 346 mg/dL (70-99) Calcium Level 7.6 mg/dL (8.5-10.1) Test 12/20/16 11:32 Glucose (Fingerstick) 282 mg/dL (70-99) Physical Exam HEENT: Neck Supple W Full Motion Chest: Symmetric LUNGS: Other (diminished bases ) Heart: S1S2, RRR, no gallops, no murmurs Abdomen: Soft N/T Extremities: Other (trace bilateral LE edema ) Neurology: alert, oriented, follow commands Assessment Assessment This is a 61 yo female, well-known to us from multiple recent admissions, who returned with complaints of shortness of breath. Patient reports waking up Tuesday morning with shortness of breath. Has difficulty making it to the bathroom as she was very dyspneic. [place] that possible her oxygen machine was not working properly because she could not catch her breath. Denies any chest pain, palpitations, dizziness, diaphoresis, or nausea/vomiting. Reports compliance with medications. UDS + for cocaine this admission along with previous admission last week, although patient denies cocaine use. Assessment 1. Malignant HTN: now controlled. possible noncompliance. prior hx of cocaine abuse. PRAVEEN contributing. Continue current therapy 2. Acute on chronic respiratory failure with COPD and likely PRAVEEN. improved. per pulm 3. Acute on chronic diastolic CHF: due to above. recent echo with LVEF 55-60%. Continue optimization therapy. Mild diuresis with monitoring of renal function. 4. Hx of nonobstructive CAD with diffuse disease: [facility] 09/2015. CP free. Continue secondary prevention 5. CKD3; Cr 1.9. nephrology consulted. 6. Substance abuse; UDS + cocaine. Discussed abstinence 7. DM2/HLP: last A1C 9.5 8. Morbid obesity: BMI 49 9. Possible noncompliance SAM WELSH APRN Dec 20, 2016 12:00
--- NOTE | 2016-12-20 12:53 | PDOC ---
Provider Note Provider Note dictated GENE COTA MD Dec 20, 2016 12:53
[2016-12-20 14:00] LABS: HEMATOCRIT 26.4 % (36.0-47.0); HEMOGLOBIN 8.5 g/dL (12.0-15.5); RED BLOOD COUNT 3.18 x10^6/uL (3.50-5.40); RED CELL DISTRIBUTION WIDTH 17.3 % (11.5-14.5); WHITE BLOOD COUNT 5.8 x10^3/uL (4.0-11.0)
--- NOTE | 2016-12-20 14:00 | CONS ---
DATE OF CONSULTATION: ATTENDING PHYSICIAN: Dr. Foy. REASON FOR CONSULTATION: Dyspnea. HISTORY OF PRESENT ILLNESS: The patient is a 61-year-old morbidly obese patient with history of tobaccoism, history of CHF. She was discharged 4 days ago. She came back to the hospital with increasing dyspnea. She said she had a mild cough, which was clear. No fever, no chills, no chest pains. She did have some soreness in the rib cage from coughing. She does have mild increase in lower extremity edema. The patient uses 2 liters of oxygen at baseline, but her oxygen was not working well recently per the patient's history. She was seen in the ER and an imaging study was performed and she underwent CTA of the chest. I reviewed the CTA of the chest, there was no definite evidence of pulmonary embolism in the central vessels. There was borderline mediastinal adenopathy and mild right hilar adenopathy, which could be reactive. Tiny amount of left pleural effusion. Consultation requested for further evaluation and management. She states she has history of sleep study at about a year ago, but she does not know the results. She was treated on BiPAP last night. PAST MEDICAL HISTORY: History of CAD, CHF, hypertension, hyperlipidemia, COPD, GERD, anemia, anxiety, osteoarthritis. PAST SURGICAL HISTORY: Tubal ligation, tonsillectomy. FAMILY HISTORY: Hypertension. SOCIAL HISTORY: Quit tobacco a week ago, down to a few cigarettes a day. Has smoked since age 19. History of cocaine use. REVIEW OF SYSTEMS: Twelve-point system obtained. Pertinent positives discussed in my history of present illness, otherwise noncontributory. All systems that were negative were reviewed as well. ALLERGIES: None. MEDICATIONS: All reviewed as listed in the MRAD including antibiotics and bronchodilators. PHYSICAL EXAMINATION: GENERAL: She is awake, following commands. VITAL SIGNS: Blood pressure is stable at present. Her pulse ox is in the 90s on 3 liters now. Afebrile. HEENT: Sclerae nonicteric. NECK: Supple. LUNGS: With diminished breath sounds. CARDIOVASCULAR: Regular rate and rhythm. ABDOMEN: Soft, obese. EXTREMITIES: With 1+ pitting edema. LABORATORY DATA: Reviewed. Hemoglobin 7.9 today, white cell count 5.4. BUN 20, creatinine 1.9. ABGs with a pH of 7.40, pCO2 of 45 and a pO2 of 53 on 40% FiO2. IMPRESSION: 1. Dyspnea with acute on chronic hypoxic respiratory failure, most likely related to acute on chronic mild systolic heart failure. 2. History of cardiomyopathy with an EF of 40% based on the echo from 11/2016 and now suspect mild congestive heart failure with increasing lower extremity edema. 3. Clinically, less likely pneumonia. 4. Questionable history of obstructive sleep apnea. She said she had a sleep study done at a year ago. She does not know the results and we will obtain the records. 5. No convincing evidence of central pulmonary emboli. 6. Ongoing tobaccoism, suspect underlying chronic obstructive pulmonary disease. RECOMMENDATIONS: 1. Continue with present bronchodilators. 2. Wean oxygen slowly. Currently, oxygen requirement is improving. 3. Continue bronchodilators. 4. Antibiotics can be discontinued. 5. Follow ID recommendations. 6. Smoking cessation counseling provided. 7. PFTs as an outpatient. 8. Obtain sleep study results from . [facility] MD DR: MAGNO/derik JOB#: [id number] / [id number]
[2016-12-20 15:34] VITALS: BP 138/60
[2016-12-20 19:00] VITALS: BP 121/58
[2016-12-20] MEDS ORDERED: VANCOMYCIN 2 GM in IV NORMAL SALINE 500ML BAG 500 ML IV SCH (19:00)
[2016-12-20] MEDS: ATORVASTATIN CALCIUM 40 MG TABLET. PO SCH (20:51)
[2016-12-20] MEDS: FERROUS SULFATE 325 MG TABLET. PO SCH (20:51)
[2016-12-20] MEDS ORDERED: INSULIN DETEMIR 300 UNITS/3 ML INSULN.PEN. SQ SCH (21:00)
[2016-12-20 22:50] VITALS: BP 128/63
[2016-12-21 02:38] VITALS: BP 124/43
[2016-12-21] MEDS: oxyCODONE/APAP 10/325 1 TAB TABLET PO PRN ×3 (03:54→14:08)
[2016-12-21 04:01] LABS: BASO # 0.1 x10^3/uL (0.0-0.2); BASO % 1 % (0-3); EOS % 4 % (0-3); HEMATOCRIT 24.9 % (36.0-47.0); HEMOGLOBIN 7.8 g/dL (12.0-15.5); LYMPH # 1.2 x10^3/uL (1.0-4.8); LYMPH % 22 % (24-48); MEAN CORPUSCULAR HEMOGLOBIN 27 pg (25-35); MEAN CORPUSCULAR HGB CONC 31 g/dL (31-37); MEAN CORPUSCULAR VOLUME 85 fL (79-100); MONO % 12 % (0-9); NEUT % 63 % (31-73); PLATELET COUNT 220 x10^3/uL (140-400); RED BLOOD COUNT 2.93 x10^6/uL (3.50-5.40); RED CELL DISTRIBUTION WIDTH 17.4 % (11.5-14.5); WHITE BLOOD COUNT 5.8 x10^3/uL (4.0-11.0)
[2016-12-21 04:22] LABS: ALBUMIN 2.4 g/dL (3.4-5.0); ALBUMIN/GLOBULIN RATIO 0.6 (1.0-1.7); CALCIUM 7.4 mg/dL (8.5-10.1); CREATININE 2.1 mg/dL (0.6-1.0); GFR 29.2; POTASSIUM 3.5 mmol/L (3.5-5.1); TOTAL BILIRUBIN 0.1 mg/dL (0.2-1.0); TOTAL PROTEIN 6.3 g/dL (6.4-8.2)
--- NOTE | 2016-12-21 04:36 | ACF ---
Admission Forms Criteria RESPIRATORY FAILURE [facility] Clinical Indications for Admission to Inpatient Care (Place 'X' for any and all applicable criteria): Hospital admission is needed for appropriate care of the patient because of acute respiratory failure or insufficiency as indicated by ANY ONE of the following(1)(2)(3)(4)(5)(6)(7)(8): [ x]I. Mechanical ventilation needed (acute invasive or noninvasive) [ ]II. Severe ventilation deficit as indicated by ANY ONE of the following (9) [ ]a) Respiratory acidosis (pH less than 7.32 and partial pressure of carbon dioxide greater than 40 mm Hg (5.3 kPa)) [ ]b) Partial pressure of carbon dioxide greater than 44 mm Hg (5.9 kPa ) (new) [ ]c) Airflow measurements less than 25% of predicted (eg, peak expiratory flow rate less than 100 L/minute) [ ]d) Forced vital capacity less than 15 mL/kg of ideal body weight, or 50% decrease in vital capacity from baseline [ ]III. Noncardiac pulmonary edema not resolving with rapid emergency treatment (8) [ ]IV. Severe respiratory distress as indicated by ANY ONE of the following: [ ]a) Severe tachypnea (respiratory rate greater than 30, greater than 45 for 6-month-old, greater than 60 for ) [ ]b) Severe hypoxemia (partial pressure of oxygen less than 50 mm Hg ( 6.7 kPa) on greater than 50% oxygen or partial pressure of oxygen to FIO2 ratio less than 200) [ ]c) Mental status deterioration from respiratory disease [ ]V. Airway obstruction or inadequate protection [A](10)(11) The original [employer] content created by [employer] has been revised. The portions of the content which have been revised are identified through the use of italic text or in bold, and [employer] has neither reviewed nor approved the modified material. All other unmodified content is copyright [employer]. Please see references footnoted in the original [employer] edition 2016 Admission Criteria Met?: Yes ROBIN MELO Dec 21, 2016 04:36
[2016-12-21] MEDS: PIPERACILLIN/TAZOBACTAM 4.5 GM in IV NORMAL SALINE 100ML 100 ML IV SCH (05:54)
[2016-12-21] MEDS: PANTOPRAZOLE 40 MG TABLET.DR. PO SCH (05:58)
[2016-12-21 07:00] VITALS: BP 129/63
[2016-12-21] MEDS: BUDESONIDE 0.5 MG/2 ML NEBU. NEB SCH (07:54)
[2016-12-21] MEDS: OXYMETAZOLINE 0.05% NASAL SPRAY 30ML BOTTLE. NS SCH (09:00)
[2016-12-21] MEDS: DICLOFENAC SODIUM 1% TOPICAL GEL 100GM TUBE. TP SCH (09:01)
[2016-12-21] MEDS: glipiZIDE 5 MG TABLET PO SCH (09:04)
[2016-12-21] MEDS: FUROSEMIDE 40 MG TABLET. PO SCH (09:04)
[2016-12-21] MEDS: INSULIN ASPART 300 UNITS/3 ML INSULN.PEN SQ SCH ×2 (09:04→12:56)
[2016-12-21] MEDS: CARVEDILOL 12.5 MG TABLET. PO SCH ×2 (09:06→14:14)
[2016-12-21] MEDS: cloNIDine HCL 0.2 MG TABLET PO SCH (09:06)
[2016-12-21] MEDS: amLODIPine BESYLATE 10 MG TABLET PO SCH (09:06)
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
--- NOTE | 2016-12-21 10:24 | PDOC ---
PULMONARY PROGRESS NOTES Subjective no soa Vitals Vital Signs Date Time Temp Pulse Resp B/P (MAP) Pulse Ox O2 Delivery O2 Flow Rate FiO2 12/21/16 09:07 Nasal Cannula 2.0 12/21/16 09:06 69 129/63 12/21/16 07:56 98 12/21/16 07:00 98.3 19 98.3 General: Alert, No acute distress HEENT: Other Lungs: Clear Cardiovascular: S1, S2 Abdomen: Soft, Non-tender Neuro Exam: Alert Extremities: No Edema Skin: Warm Labs Laboratory Tests Test 12/19/16 15:55 12/19/16 16:32 12/20/16 03:40 12/20/16 07:23 Urine Collection Type Unknown Urine Color Yellow Urine Clarity Clear Urine pH 7.0 Urine Specific [place] 1.015 Urine Protein >=300 mg/dL (NEG-TRACE) Urine Glucose (UA) 100 mg/dL (NEG) Urine Ketones (Stick) Negative mg/dL (NEG) Urine Blood Negative (NEG) Urine Nitrite Negative (NEG) Urine Bilirubin Negative (NEG) Urine Urobilinogen Dipstick 0.2 mg/dL (0.2 mg/dL) Urine Leukocyte Esterase Negative (NEG) Urine RBC Occ /HPF (0-2) Urine WBC Occ /HPF (0-4) Urine Squamous Epithelial Cells Few /LPF Urine Bacteria Few /HPF (0-FEW) Urine Opiates Screen Neg (NEG) Urine Methadone Screen Neg (NEG) Urine Barbiturates Neg (NEG) Urine Phencyclidine Screen Neg (NEG) Urine Amphetamine/Methamphetamine Neg (NEG) Urine Benzodiazepines Screen Pos (NEG) Urine Cocaine Screen Pos (NEG) Urine Cannabinoids Screen Neg (NEG) Urine Ethyl Alcohol Neg (NEG) Glucose (Fingerstick) 361 mg/dL (70-99) 279 mg/dL (70-99) White Blood Count 5.4 x10^3/uL (4.0-11.0) Red Blood Count 2.99 x10^6/uL (3.50-5.40) Hemoglobin 7.9 g/dL (12.0-15.5) Hematocrit 25.2 % (36.0-47.0) Mean Corpuscular Volume 84 fL (79-100) Mean Corpuscular Hemoglobin 27 pg (25-35) Mean Corpuscular Hemoglobin Concent 31 g/dL (31-37) Red Cell Distribution Width 17.1 % (11.5-14.5) Platelet Count 227 x10^3/uL (140-400) Neutrophils (%) (Auto) 78 % (31-73) Lymphocytes (%) (Auto) 11 % (24-48) Monocytes (%) (Auto) 10 % (0-9) Eosinophils (%) (Auto) 1 % (0-3) Basophils (%) (Auto) 1 % (0-3) Neutrophils # (Auto) 4.2 x10^3uL (1.8-7.7) Lymphocytes # (Auto) 0.6 x10^3/uL (1.0-4.8) Monocytes # (Auto) 0.5 x10^3/uL (0.0-1.1) Eosinophils # (Auto) 0.0 x10^3/uL (0.0-0.7) Basophils # (Auto) 0.0 x10^3/uL (0.0-0.2) Segmented Neutrophils % 90 % (35-66) Lymphocytes % 7 % (24-48) Monocytes % 3 % (0-10) Nucleated Red Blood Cells 1 Platelet Estimate Adequate (ADEQUATE) Large Platelets Present Anisocytosis Slight Sodium Level 137 mmol/L (136-145) Potassium Level 4.0 mmol/L (3.5-5.1) Chloride Level 102 mmol/L (98-107) Carbon Dioxide Level 30 mmol/L (21-32) Anion Gap 5 (6-14) Blood Urea Nitrogen 20 mg/dL (7-20) Creatinine 1.9 mg/dL (0.6-1.0) Estimated GFR (Cockcroft-Gault) 32.7 Glucose Level 346 mg/dL (70-99) Calcium Level 7.6 mg/dL (8.5-10.1) Troponin I Quantitative 0.038 ng/mL (0.000-0.055) Test 12/20/16 11:32 12/20/16 13:40 12/20/16 16:54 12/20/16 20:50 Glucose (Fingerstick) 282 mg/dL (70-99) 206 mg/dL (70-99) 123 mg/dL (70-99) White Blood Count 5.8 x10^3/uL (4.0-11.0) Red Blood Count 3.18 x10^6/uL (3.50-5.40) Hemoglobin 8.5 g/dL (12.0-15.5) Hematocrit 26.4 % (36.0-47.0) Mean Corpuscular Volume 83 fL (79-100) Mean Corpuscular Hemoglobin 27 pg (25-35) Mean Corpuscular Hemoglobin Concent 32 g/dL (31-37) Red Cell Distribution Width 17.3 % (11.5-14.5) Platelet Count 241 x10^3/uL (140-400) Test 12/21/16 03:32 12/21/16 07:27 White Blood Count 5.8 x10^3/uL (4.0-11.0) Red Blood Count 2.93 x10^6/uL (3.50-5.40) Hemoglobin 7.8 g/dL (12.0-15.5) Hematocrit 24.9 % (36.0-47.0) Mean Corpuscular Volume 85 fL (79-100) Mean Corpuscular Hemoglobin 27 pg (25-35) Mean Corpuscular Hemoglobin Concent 31 g/dL (31-37) Red Cell Distribution Width 17.4 % (11.5-14.5) Platelet Count 220 x10^3/uL (140-400) Neutrophils (%) (Auto) 63 % (31-73) Lymphocytes (%) (Auto) 22 % (24-48) Monocytes (%) (Auto) 12 % (0-9) Eosinophils (%) (Auto) 4 % (0-3) Basophils (%) (Auto) 1 % (0-3) Neutrophils # (Auto) 3.6 x10^3uL (1.8-7.7) Lymphocytes # (Auto) 1.2 x10^3/uL (1.0-4.8) Monocytes # (Auto) 0.7 x10^3/uL (0.0-1.1) Eosinophils # (Auto) 0.2 x10^3/uL (0.0-0.7) Basophils # (Auto) 0.1 x10^3/uL (0.0-0.2) Sodium Level 140 mmol/L (136-145) Potassium Level 3.5 mmol/L (3.5-5.1) Chloride Level 104 mmol/L (98-107) Carbon Dioxide Level 31 mmol/L (21-32) Anion Gap 5 (6-14) Blood Urea Nitrogen 21 mg/dL (7-20) Creatinine 2.1 mg/dL (0.6-1.0) Estimated GFR (Cockcroft-Gault) 29.2 BUN/Creatinine Ratio 10 (6-20) Glucose Level 146 mg/dL (70-99) Calcium Level 7.4 mg/dL (8.5-10.1) Total Bilirubin 0.1 mg/dL (0.2-1.0) Aspartate Amino Transf (AST/SGOT) 10 U/L (15-37) Alanine Aminotransferase (ALT/SGPT) 12 U/L (14-59) Alkaline Phosphatase 127 U/L (46-116) Total Protein 6.3 g/dL (6.4-8.2) Albumin 2.4 g/dL (3.4-5.0) Albumin/Globulin Ratio 0.6 (1.0-1.7) Glucose (Fingerstick) 88 mg/dL (70-99) Laboratory Tests Test 12/20/16 11:32 12/20/16 13:40 12/20/16 16:54 12/20/16 20:50 Glucose (Fingerstick) 282 mg/dL (70-99) 206 mg/dL (70-99) 123 mg/dL (70-99) White Blood Count 5.8 x10^3/uL (4.0-11.0) Red Blood Count 3.18 x10^6/uL (3.50-5.40) Hemoglobin 8.5 g/dL (12.0-15.5) Hematocrit 26.4 % (36.0-47.0) Mean Corpuscular Volume 83 fL (79-100) Mean Corpuscular Hemoglobin 27 pg (25-35) Mean Corpuscular Hemoglobin Concent 32 g/dL (31-37) Red Cell Distribution Width 17.3 % (11.5-14.5) Platelet Count 241 x10^3/uL (140-400) Test 12/21/16 03:32 12/21/16 07:27 White Blood Count 5.8 x10^3/uL (4.0-11.0) Red Blood Count 2.93 x10^6/uL (3.50-5.40) Hemoglobin 7.8 g/dL (12.0-15.5) Hematocrit 24.9 % (36.0-47.0) Mean Corpuscular Volume 85 fL (79-100) Mean Corpuscular Hemoglobin 27 pg (25-35) Mean Corpuscular Hemoglobin Concent 31 g/dL (31-37) Red Cell Distribution Width 17.4 % (11.5-14.5) Platelet Count 220 x10^3/uL (140-400) Neutrophils (%) (Auto) 63 % (31-73) Lymphocytes (%) (Auto) 22 % (24-48) Monocytes (%) (Auto) 12 % (0-9) Eosinophils (%) (Auto) 4 % (0-3) Basophils (%) (Auto) 1 % (0-3) Neutrophils # (Auto) 3.6 x10^3uL (1.8-7.7) Lymphocytes # (Auto) 1.2 x10^3/uL (1.0-4.8) Monocytes # (Auto) 0.7 x10^3/uL (0.0-1.1) Eosinophils # (Auto) 0.2 x10^3/uL (0.0-0.7) Basophils # (Auto) 0.1 x10^3/uL (0.0-0.2) Sodium Level 140 mmol/L (136-145) Potassium Level 3.5 mmol/L (3.5-5.1) Chloride Level 104 mmol/L (98-107) Carbon Dioxide Level 31 mmol/L (21-32) Anion Gap 5 (6-14) Blood Urea Nitrogen 21 mg/dL (7-20) Creatinine 2.1 mg/dL (0.6-1.0) Estimated GFR (Cockcroft-Gault) 29.2 BUN/Creatinine Ratio 10 (6-20) Glucose Level 146 mg/dL (70-99) Calcium Level 7.4 mg/dL (8.5-10.1) Total Bilirubin 0.1 mg/dL (0.2-1.0) Aspartate Amino Transf (AST/SGOT) 10 U/L (15-37) Alanine Aminotransferase (ALT/SGPT) 12 U/L (14-59) Alkaline Phosphatase 127 U/L (46-116) Total Protein 6.3 g/dL (6.4-8.2) Albumin 2.4 g/dL (3.4-5.0) Albumin/Globulin Ratio 0.6 (1.0-1.7) Glucose (Fingerstick) 88 mg/dL (70-99) Medications Active Scripts Medications Dose Route/Sig Max Daily Dose Days Date Category Feosol (Ferrous Sulfate) 325 Mg Tablet 325 Mg PO QHS 12/15/16 Rx Voltaren (Diclofenac Sodium) 100 Gm Gel..gram. 1 Sohan TP BID 12/15/16 Rx Doxycycline Hyclate 100 Mg Tablet 100 Mg PO BID 12/04/16 Rx Percocet 10-325 Mg Tablet (Oxycodone/Acetaminophen) 1 Each Tablet 1 Tab PO Q4-6HRS 12/04/16 Rx Toujeo Solostar (Insulin Glargine,Hum.rec.anlog) 300 Unit/1 Ml Insuln.pen 36 Unit SQ HS 10/10/16 Reported Amlodipine Besylate 10 Mg Tablet 10 Mg PO DAILY 09/27/15 Rx Novolog Flexpen (Insulin Aspart) 100 Unit/1 Ml Insuln.pen 10 Units SQ TIDAC 05/27/15 Rx Hydralazine Hcl 50 Mg Tablet 100 Mg PO Q8HRS 05/27/15 Rx Furosemide 40 Mg Tablet 40 Mg PO DAILY 05/27/15 Rx Atorvastatin Calcium 40 Mg Tablet 1 Tab PO DAILY 05/23/15 Reported Omeprazole 40 Mg Capsule.dr 1 Cap PO DAILY 05/23/15 Reported Ventolin Hfa Inhaler (Albuterol Sulfate) 18 Gm Hfa.aer.ad 2 Puff IH PRN Q4-6HRS 05/23/15 Reported Glipizide 10 Mg Tablet 1 Tab PO BIDAC 06/10/14 Reported Clonidine Hcl 0.2 Mg Tablet 1 Tab PO BID 06/10/14 Reported Coreg (Carvedilol) 25 Mg Tablet 1 Tab PO [id number] 06/10/14 Reported Impression . 1. Dyspnea with acute on chronic hypoxic respiratory failure, most likely related to acute on chronic mild systolic heart failure. 2. History of cardiomyopathy with an EF of 40% based on the echo from 11/2016 and now suspect mild congestive heart failure with increasing lower extremity edema. 3. Clinically, less likely pneumonia. 4. Questionable history of obstructive sleep apnea. She said she had a sleep study done at a year ago. She does not know the results and we will obtain the records. 5. No convincing evidence of central pulmonary emboli. 6. Ongoing tobaccoism, suspect underlying chronic obstructive pulmonary disease. Plan . 1. Continue with present bronchodilators. 2. Wean oxygen slowly. Currently, oxygen requirement is improving. 3. Continue bronchodilators. 4. Antibiotics can be discontinued. 5. Follow ID recommendations. 6. Smoking cessation counseling provided. 7. PFTs as an outpatient. 8. Obtain sleep study results from . GENE COTA MD Dec 21, 2016 10:24
[2016-12-21 11:08] VITALS: BP 147/66
--- NOTE | 2016-12-21 11:55 | PDOC2 ---
CONSULT Date of Consult Date of Consult DATE: 12/21/16 TIME: 11:49 Reason for Consult Reason for Consult: RENAL FAILURE Referring Physician Referring Physician: MG Identification/Chief Complaint Chief Complaint SOB Problems: Source Source: Chart review, Patient History of Present Illness Reason for Visit: THIS IS A 61 YR OLD ADMITTED WITH SOB. SHE IS NOTED TO HAVE CHF SYSTOLIC IN NATURE WITH AN EF OF 40%. SHE HAS PRAVEEN AND IS OBESE AND IS APPARENTLY O2 DEPENDENT AT HOME. SHE HAD LOTS OF EDEMA WHEN SHE CAME AND NOW STATES THAT IT IS RESOLVED AND SHE IS FEELING BACK TO HER BASELINE. RENAL CONSULT WAS ASKED DUE TO HER CR OF 2.1. OLD RECORDS REVEAL SIMILAR CR LEVELS. NO HX OF ANY KIDNEY OR BLADDER SURGERIES. SHE HAS NOCTURIA BUT NO HX OF ANY FREQUENT UTI'S Past Medical History Cardiovascular: CAD, CHF, HTN, Hyperlipidemia Pulmonary: COPD, Other GI: GERD Heme/Onc: Anemia NOS Psych: Anxiety Musculoskeletal: Osteoarthritis, Other Rheumatologic: No pertinent hx Infectious disease: No pertinent hx Renal/: Chronic renal insuff Endocrine: Diabetes Past Surgical History Past Surgical History: Tubal Ligation, Tonsillectomy Family History Family History: Hypertension Social History Quit (?? says she quit, I am skeptical) ALCOHOL: none Drugs: Cocaine, Other (denied) Lives: Alone Current Problem List Problem List Problems Medical Problems: (1) Accelerated hypertension Status: Acute (2) Acute respiratory failure Status: Acute (3) CHF (congestive heart failure) Status: Acute Current Medications Current Medications Current Medications Dexamethasone Sodium Phosphate (Decadron) 10 mg 1X ONCE IV Last administered on 12/19/16 08:51; Start 12/19/16 at 08:45; Stop 12/19/16 at 08:46; Status DC Albuterol/ Ipratropium (Duoneb) 3 ml 1X ONCE NEB Last administered on 09:08; Start 12/19/16 at 09:15; Stop 12/19/16 at 09:16; Status DC Albuterol Sulfate (Ventolin Neb Soln) 10 mg 1X ONCE CONT NEB Last administered on 12/19/16 09:08; Start 12/19/16 at 09:15; Stop 12/19/16 at 09:16; Status DC Oxycodone/ Acetaminophen (Percocet 10/325) 1 tab 1X ONCE PO Last administered on 12/19/16 09:18; Start 12/19/16 at 09:15; Stop 12/19/16 at 09:16; Status DC Hydrochlorothiazide (Microzide) 12.5 mg 1X ONCE PO Last administered on 09:17; Start 12/19/16 at 09:15; Stop 12/19/16 at 09:16; Status DC Amlodipine Besylate (Norvasc) 10 mg 1X ONCE PO Last administered on 12/19/16 09:17; Start 12/19/16 at 09:15; Stop 12/19/16 at 09:16; Status DC Iohexol (Omnipaque 300 Mg/ml) 60 ml 1X ONCE IV Last administered on 12/19/16 10:26; Start 12/19/16 at 10:15; Stop 12/19/16 at 10:17; Status DC Info (Do NOT chart on this entry -- for MONITORING) 1 each PRN DAILY PRN MC SEE COMMENTS; Start 12/19/16 at 10:30; Stop 12/21/16 at 10:29; Status DC Furosemide (Lasix) 40 mg 1X ONCE IVP Last administered on 12/19/16 12:16; Start 12/19/16 at 11:45; Stop 12/19/16 at 11:46; Status DC Ondansetron HCl (Zofran) 4 mg PRN Q8HRS PRN IV NAUSEA/VOMITING; Start 12/19/16 at 13:00; Stop 12/20/16 at 12:59; Status DC Morphine Sulfate 2 mg PRN Q2HR PRN IV PAIN; Start 12/19/16 at 13:00; Stop at 12:59; Status DC Acetaminophen (Tylenol) 650 mg PRN Q4HRS PRN PO FEVER; Start 12/19/16 at 13:00; Stop 12/20/16 at 12:59; Status DC Albuterol/ Ipratropium (Duoneb) 3 ml RTQID NEB Last administered on 12/20/16 12 :41; Start 12/19/16 at 16:00; Stop 12/20/16 at 15:59; Status DC Labetalol HCl (Normodyne) 20 mg PRN Q2HR PRN IVP HYPERTENSION, SEE COMMENTS Last administered on 12/19/16 13:39; Start 12/19/16 at 13:00 Amlodipine Besylate (Norvasc) 10 mg DAILY PO Last administered on 12/21/16 09: 06; Start 12/20/16 at 09:00 Atorvastatin Calcium (Lipitor) 40 mg QHS PO Last administered on 12/20/16 20:51 ; Start 12/19/16 at 21:00 Clonidine HCl (Catapres) 0.2 mg BID PO Last administered on 12/21/16 09:06; Start 12/19/16 at 21:00 Diclofenac Sodium (Voltaren) 1 sohan BID TP Last administered on 12/21/16 09:01; Start 12/19/16 at 21:00 Doxycycline Hyclate (Vibra-Tab) 100 mg BID PO Last administered on 12/20/16 08: 20; Start 12/19/16 at 21:00; Stop 12/20/16 at 11:13; Status DC Ferrous Sulfate (Feosol) 325 mg QHS PO Last administered on 12/20/16 20:51; Start 12/19/16 at 21:00 Furosemide (Lasix) 40 mg DAILY PO Last administered on 12/21/16 09:04; Start at 15:30 Hydralazine HCl (Apresoline) 100 mg Q8HRS PO Last administered on 12/21/16 05: 58; Start 12/19/16 at 15:30 Insulin Aspart (NovoLOG) 10 units TIDAC SQ Last administered on 12/20/16 08:32 ; Start 12/19/16 at 16:30; Stop 12/20/16 at 10:46; Status DC Oxycodone/ Acetaminophen (Percocet 10/325) 1 tab PRN Q4HRS PRN PO pain Last administered on 12/21/16 09:07; Start 12/19/16 at 15:00 Albuterol Sulfate (Ventolin Neb Soln) 2.5 mg PRN Q4HRS PRN NEB SHORTNESS OF BREATH; Start 12/19/16 at 15:15 Carvedilol (Coreg) 25 mg BIDWMEALS PO Last administered on 12/21/16 09:06; Start 12/19/16 at 17:00 Glipizide (Glucotrol) 10 mg BIDBFRMEAL PO Last administered on 12/21/16 09:04; Start 12/19/16 at 16:30 Insulin Detemir (Levemir) 29 units QHS SQ Last administered on 12/19/16 21:08; Start 12/19/16 at 21:00; Stop 12/20/16 at 10:46; Status DC Pantoprazole Sodium (Protonix) 40 mg DAILYAC PO Last administered on 12/21/16 05:58; Start 12/20/16 at 07:30 Vancomycin HCl (Vanco Per Pharmacy) 1 each PRN DAILY PRN MC SEE COMMENTS Last administered on 12/20/16 11:16; Start 12/19/16 at 17:45; Stop 12/21/16 at 10:57; Status DC Piperacillin Sod/ Tazobactam Sod (Zosyn Per Pharmacy) 1 each PRN DAILY PRN MC SEE COMMENTS; Start 12/19/16 at 17:45; Stop 12/21/16 at 10:57; Status DC Budesonide (Pulmicort) 0.5 mg RTBID NEB Last administered on 12/21/16 07:54; Start 12/19/16 at 20:00 Oxymetazoline HCl (Afrin) 2 spray BID NS Last administered on 12/21/16 09:00; Start 12/19/16 at 21:00 Piperacillin Sod/ Tazobactam Sod 4.5 gm/Sodium Chloride 100 ml @ 200 mls/hr Q6HRS IV Last administered on 12/21/16 05:54; Start 12/19/16 at 18:00; Stop 12/21 at 10:53; Status DC Vancomycin HCl 2 gm/Sodium Chloride 500 ml @ 250 mls/hr ONCE ONCE IV Last administered on 12/19/16 19:09; Start 12/19/16 at 18:30; Stop 12/19/16 at 20:29; Status DC Vancomycin HCl 2 gm/Sodium Chloride 500 ml @ 250 mls/hr Q24H IV Last administered on 12/20/16 18:35; Start 12/20/16 at 19:00; Stop 12/21/16 at 10:57; Status DC Vancomycin HCl 1 each 1X ONCE MC ; Start 12/21/16 at 18:30; Stop 12/21/16 at 18: 30; Status DC Insulin Detemir (Levemir) 15 units 1X ONCE SQ Last administered on 12/20/16 10 :32; Start 12/20/16 at 10:30; Stop 12/20/16 at 10:31; Status DC Insulin Aspart (NovoLOG) 14 units TIDAC SQ Last administered on 12/20/16 17:19 ; Start 12/20/16 at 11:30 Insulin Detemir (Levemir) 35 units QHS SQ Last administered on 12/20/16 20:58; Start 12/20/16 at 21:00 Active Scripts Active Feosol (Ferrous Sulfate) 325 Mg Tablet 325 Mg PO QHS Voltaren (Diclofenac Sodium) 100 Gm Gel..gram. 1 Sohan TP BID Doxycycline Hyclate 100 Mg Tablet 100 Mg PO BID Percocet 10-325 Mg Tablet (Oxycodone/Acetaminophen) 1 Each Tablet 1 Tab PO Q4- 6HRS Amlodipine Besylate 10 Mg Tablet 10 Mg PO DAILY Novolog Flexpen (Insulin Aspart) 100 Unit/1 Ml Insuln.pen 10 Units SQ TIDAC Hydralazine Hcl 50 Mg Tablet 100 Mg PO Q8HRS Furosemide 40 Mg Tablet 40 Mg PO DAILY Reported Wang Recinosostkari (Insulin Glargine,Hum.rec.anlog) 300 Unit/1 Ml Insuln.pen 36 Unit SQ HS Atorvastatin Calcium 40 Mg Tablet 1 Tab PO DAILY Omeprazole 40 Mg Capsule.dr 1 Cap PO DAILY Ventolin Hfa Inhaler (Albuterol Sulfate) 18 Gm Hfa.aer.ad 2 Puff IH PRN Q4-6HRS Glipizide 10 Mg Tablet 1 Tab PO BIDAC Clonidine Hcl 0.2 Mg Tablet 1 Tab PO BID Coreg (Carvedilol) 25 Mg Tablet 1 Tab PO [id number] Allergies Allergies: Coded Allergies: No Known Drug Allergies (Unverified , 06/10/14) ROS General: YES: Fatigue PSYCHOLOGICAL ROS: YES: Anxiety Eyes: Yes Decreased vision HEENT: YES: Heacaches Respiratory: YES: Cough, Orthopnea, Shortness of breath Cardiovascular: yes Edema Gastrointestinal: Yes Constipation Genitourinary: YES Other (NOCTURIA) Musculoskeletal: Yes Muscular Weakness Skin: Yes Dry Skin Physical Exam General: Alert, Oriented X3, Cooperative, No acute distress HEENT: Atraumatic Lungs: Other (DECREASED AT BASES) Heart: Regular rate Abdomen: Normal bowel sounds, Soft, No tenderness Extremities: No clubbing Neuro: Normal speech, Cranial nerves 3-12 NL Psych/Mental Status: Mental status NL, Mood NL MUSCULOSKELETAL: No deformity, Other (TRACE EDEMA) Vitals VITALS Vital Signs Date Time Temp Pulse Resp B/P (MAP) Pulse Ox O2 Delivery O2 Flow Rate FiO2 12/21/16 11:08 98.0 73 20 147/66 (93) 100 Nasal Cannula 2.0 98.0 Labs Labs Laboratory Tests Test 12/19/16 15:55 12/19/16 16:32 12/20/16 03:40 12/20/16 07:23 Urine Collection Type Unknown Urine Color Yellow Urine Clarity Clear Urine pH 7.0 Urine Specific [place] 1.015 Urine Protein >=300 mg/dL (NEG-TRACE) Urine Glucose (UA) 100 mg/dL (NEG) Urine Ketones (Stick) Negative mg/dL (NEG) Urine Blood Negative (NEG) Urine Nitrite Negative (NEG) Urine Bilirubin Negative (NEG) Urine Urobilinogen Dipstick 0.2 mg/dL (0.2 mg/dL) Urine Leukocyte Esterase Negative (NEG) Urine RBC Occ /HPF (0-2) Urine WBC Occ /HPF (0-4) Urine Squamous Epithelial Cells Few /LPF Urine Bacteria Few /HPF (0-FEW) Urine Opiates Screen Neg (NEG) Urine Methadone Screen Neg (NEG) Urine Barbiturates Neg (NEG) Urine Phencyclidine Screen Neg (NEG) Urine Amphetamine/Methamphetamine Neg (NEG) Urine Benzodiazepines Screen Pos (NEG) Urine Cocaine Screen Pos (NEG) Urine Cannabinoids Screen Neg (NEG) Urine Ethyl Alcohol Neg (NEG) Glucose (Fingerstick) 361 mg/dL (70-99) 279 mg/dL (70-99) White Blood Count 5.4 x10^3/uL (4.0-11.0) Red Blood Count 2.99 x10^6/uL (3.50-5.40) Hemoglobin 7.9 g/dL (12.0-15.5) Hematocrit 25.2 % (36.0-47.0) Mean Corpuscular Volume 84 fL (79-100) Mean Corpuscular Hemoglobin 27 pg (25-35) Mean Corpuscular Hemoglobin Concent 31 g/dL (31-37) Red Cell Distribution Width 17.1 % (11.5-14.5) Platelet Count 227 x10^3/uL (140-400) Neutrophils (%) (Auto) 78 % (31-73) Lymphocytes (%) (Auto) 11 % (24-48) Monocytes (%) (Auto) 10 % (0-9) Eosinophils (%) (Auto) 1 % (0-3) Basophils (%) (Auto) 1 % (0-3) Neutrophils # (Auto) 4.2 x10^3uL (1.8-7.7) Lymphocytes # (Auto) 0.6 x10^3/uL (1.0-4.8) Monocytes # (Auto) 0.5 x10^3/uL (0.0-1.1) Eosinophils # (Auto) 0.0 x10^3/uL (0.0-0.7) Basophils # (Auto) 0.0 x10^3/uL (0.0-0.2) Segmented Neutrophils % 90 % (35-66) Lymphocytes % 7 % (24-48) Monocytes % 3 % (0-10) Nucleated Red Blood Cells 1 Platelet Estimate Adequate (ADEQUATE) Large Platelets Present Anisocytosis Slight Sodium Level 137 mmol/L (136-145) Potassium Level 4.0 mmol/L (3.5-5.1) Chloride Level 102 mmol/L (98-107) Carbon Dioxide Level 30 mmol/L (21-32) Anion Gap 5 (6-14) Blood Urea Nitrogen 20 mg/dL (7-20) Creatinine 1.9 mg/dL (0.6-1.0) Estimated GFR (Cockcroft-Gault) 32.7 Glucose Level 346 mg/dL (70-99) Calcium Level 7.6 mg/dL (8.5-10.1) Troponin I Quantitative 0.038 ng/mL (0.000-0.055) Test 12/20/16 11:32 12/20/16 13:40 12/20/16 16:54 12/20/16 20:50 Glucose (Fingerstick) 282 mg/dL (70-99) 206 mg/dL (70-99) 123 mg/dL (70-99) White Blood Count 5.8 x10^3/uL (4.0-11.0) Red Blood Count 3.18 x10^6/uL (3.50-5.40) Hemoglobin 8.5 g/dL (12.0-15.5) Hematocrit 26.4 % (36.0-47.0) Mean Corpuscular Volume 83 fL (79-100) Mean Corpuscular Hemoglobin 27 pg (25-35) Mean Corpuscular Hemoglobin Concent 32 g/dL (31-37) Red Cell Distribution Width 17.3 % (11.5-14.5) Platelet Count 241 x10^3/uL (140-400) Test 12/21/16 03:32 12/21/16 07:27 12/21/16 11:29 White Blood Count 5.8 x10^3/uL (4.0-11.0) Red Blood Count 2.93 x10^6/uL (3.50-5.40) Hemoglobin 7.8 g/dL (12.0-15.5) Hematocrit 24.9 % (36.0-47.0) Mean Corpuscular Volume 85 fL (79-100) Mean Corpuscular Hemoglobin 27 pg (25-35) Mean Corpuscular Hemoglobin Concent 31 g/dL (31-37) Red Cell Distribution Width 17.4 % (11.5-14.5) Platelet Count 220 x10^3/uL (140-400) Neutrophils (%) (Auto) 63 % (31-73) Lymphocytes (%) (Auto) 22 % (24-48) Monocytes (%) (Auto) 12 % (0-9) Eosinophils (%) (Auto) 4 % (0-3) Basophils (%) (Auto) 1 % (0-3) Neutrophils # (Auto) 3.6 x10^3uL (1.8-7.7) Lymphocytes # (Auto) 1.2 x10^3/uL (1.0-4.8) Monocytes # (Auto) 0.7 x10^3/uL (0.0-1.1) Eosinophils # (Auto) 0.2 x10^3/uL (0.0-0.7) Basophils # (Auto) 0.1 x10^3/uL (0.0-0.2) Sodium Level 140 mmol/L (136-145) Potassium Level 3.5 mmol/L (3.5-5.1) Chloride Level 104 mmol/L (98-107) Carbon Dioxide Level 31 mmol/L (21-32) Anion Gap 5 (6-14) Blood Urea Nitrogen 21 mg/dL (7-20) Creatinine 2.1 mg/dL (0.6-1.0) Estimated GFR (Cockcroft-Gault) 29.2 BUN/Creatinine Ratio 10 (6-20) Glucose Level 146 mg/dL (70-99) Calcium Level 7.4 mg/dL (8.5-10.1) Total Bilirubin 0.1 mg/dL (0.2-1.0) Aspartate Amino Transf (AST/SGOT) 10 U/L (15-37) Alanine Aminotransferase (ALT/SGPT) 12 U/L (14-59) Alkaline Phosphatase 127 U/L (46-116) Total Protein 6.3 g/dL (6.4-8.2) Albumin 2.4 g/dL (3.4-5.0) Albumin/Globulin Ratio 0.6 (1.0-1.7) Glucose (Fingerstick) 88 mg/dL (70-99) 156 mg/dL (70-99) Laboratory Tests Test 12/20/16 13:40 12/20/16 16:54 12/20/16 20:50 12/21/16 03:32 White Blood Count 5.8 x10^3/uL (4.0-11.0) 5.8 x10^3/uL (4.0-11.0) Red Blood Count 3.18 x10^6/uL (3.50-5.40) 2.93 x10^6/uL (3.50-5.40) Hemoglobin 8.5 g/dL (12.0-15.5) 7.8 g/dL (12.0-15.5) Hematocrit 26.4 % (36.0-47.0) 24.9 % (36.0-47.0) Mean Corpuscular Volume 83 fL (79-100) 85 fL (79-100) Mean Corpuscular Hemoglobin 27 pg (25-35) 27 pg (25-35) Mean Corpuscular Hemoglobin Concent 32 g/dL (31-37) 31 g/dL (31-37) Red Cell Distribution Width 17.3 % (11.5-14.5) 17.4 % (11.5-14.5) Platelet Count 241 x10^3/uL (140-400) 220 x10^3/uL (140-400) Glucose (Fingerstick) 206 mg/dL (70-99) 123 mg/dL (70-99) Neutrophils (%) (Auto) 63 % (31-73) Lymphocytes (%) (Auto) 22 % (24-48) Monocytes (%) (Auto) 12 % (0-9) Eosinophils (%) (Auto) 4 % (0-3) Basophils (%) (Auto) 1 % (0-3) Neutrophils # (Auto) 3.6 x10^3uL (1.8-7.7) Lymphocytes # (Auto) 1.2 x10^3/uL (1.0-4.8) Monocytes # (Auto) 0.7 x10^3/uL (0.0-1.1) Eosinophils # (Auto) 0.2 x10^3/uL (0.0-0.7) Basophils # (Auto) 0.1 x10^3/uL (0.0-0.2) Sodium Level 140 mmol/L (136-145) Potassium Level 3.5 mmol/L (3.5-5.1) Chloride Level 104 mmol/L (98-107) Carbon Dioxide Level 31 mmol/L (21-32) Anion Gap 5 (6-14) Blood Urea Nitrogen 21 mg/dL (7-20) Creatinine 2.1 mg/dL (0.6-1.0) Estimated GFR (Cockcroft-Gault) 29.2 BUN/Creatinine Ratio 10 (6-20) Glucose Level 146 mg/dL (70-99) Calcium Level 7.4 mg/dL (8.5-10.1) Total Bilirubin 0.1 mg/dL (0.2-1.0) Aspartate Amino Transf (AST/SGOT) 10 U/L (15-37) Alanine Aminotransferase (ALT/SGPT) 12 U/L (14-59) Alkaline Phosphatase 127 U/L (46-116) Total Protein 6.3 g/dL (6.4-8.2) Albumin 2.4 g/dL (3.4-5.0) Albumin/Globulin Ratio 0.6 (1.0-1.7) Test 8/8/17 07:27 12/21/16 11:29 Glucose (Fingerstick) 88 mg/dL (70-99) 156 mg/dL (70-99) Assessment/Plan Assessment/Plan IMP CKD STAGE 3 HTN DM II CHF SYSTOLIC ANEMIA PRAVEEN OBESITY PLAN APPARENTLY MUCH BETTER NOW THAN WHEN SHE CAME IN CONT WITH PO LASIX-MAY NEED BID DOSING ENC LOW NA AND FLUID RESTRICTIONS HAVE ASKED HER TO FOLLOW UP WITH ME IN OFFICE IF SHE IS DISCHARGED TODAY WILL DO 24 HR URINE AND PERTINENT LABS FOR CKD OP KATHARINA BRASWELL MD Dec 21, 2016 11:55
[2016-12-21] MEDS ORDERED: MAGNESIUM HYDROXIDE 2,400 MG/30 ML ORAL.SUSP. PO PRN (12:30)
[2016-12-21 14:14] VITALS: BP 152/71
== END 2016-12-21 14:45 | disposition home or self-care (01) | DRG 291 ==
LOC: ER 08:02 → 2 NORTH 12:00
PROVIDERS: ADMIT Internal Medicine; ATTEND Internal Medicine
PROC: 5A09457 Assistance with Respiratory Ventilation, 24-96 Consecutive Hours, Continuous Positive Airway Pressure (ICD-10-PCS; principal; 2016-12-20)
DX: I50.43 Acute on chronic combined systolic (congestive) and diastolic (congestive) heart failure (principal); J96.21 Acute and chronic respiratory failure with hypoxia; I13.0 Hypertensive heart and chronic kidney disease with heart failure and stage 1 through stage 4 chronic kidney disease, or unspecified chronic kidney disease; Z68.43 Body mass index [BMI] 50.0-59.9, adult; I42.9 Cardiomyopathy, unspecified; D64.9 Anemia, unspecified; E11.22 Type 2 diabetes mellitus with diabetic chronic kidney disease; E11.65 Type 2 diabetes mellitus with hyperglycemia; E66.01 Morbid (severe) obesity due to excess calories; E78.5 Hyperlipidemia, unspecified; F14.10 Cocaine abuse, uncomplicated; G47.33 Obstructive sleep apnea (adult) (pediatric); I25.10 Atherosclerotic heart disease of native coronary artery without angina pectoris; J44.9 Chronic obstructive pulmonary disease, unspecified; M19.90 Unspecified osteoarthritis, unspecified site; K21.9 Gastro-esophageal reflux disease without esophagitis; N18.3 Chronic kidney disease, stage 3 (moderate); G47.00 Insomnia, unspecified; J32.9 Chronic sinusitis, unspecified; Z82.49 Family history of ischemic heart disease and other diseases of the circulatory system; Z91.19 Patient's noncompliance with other medical treatment and regimen; Z99.81 Dependence on supplemental oxygen; Z98.51 Tubal ligation status; Z87.891 Personal history of nicotine dependence; Z91.14 Patient's other noncompliance with medication regimen
CPT/HCPCS: 36415; 36600; 71010; 71275; 80048; 80053; 80307; 81001; 82553; 82805; 82962; 83036; 83690; 83735; 83880; 84443; 84484; 85007; 85027; 85379; 85610; 93005; 94250; 94620; 94640; 94644; 94660; 94760; 96374; 96375; G0480; J1100; J1815; J1940; J2543; J3370; J3490; J7040; J7613; J7620; J7626; Q9967; 99285-25; G0479

== ENCOUNTER 2017-02-20 07:21 | Inpatient (IN) | payer OTHER ==
[~2017-02-20] VITALS: Ht 165.1 cm; Wt 136.3 kg
[2017-02-20] VITALS (8 sets, daily range): BP systolic 132–191; BP diastolic 64–90
--- NOTE | 2017-02-20 07:27 | PHYS DOC ---
Past Medical History Past Medical History: CHF, COPD, Diabetes-Type II, Hypertension Additional Past Medical Histor: insomnia Past Surgical History: Tonsillectomy, Tubal ligation, Other Additional Past Surgical Histo: R ARM FX, R LEG FX Alcohol Use: None Drug Use: None Adult General Chief Complaint Chief Complaint: short of breath HPI HPI Patient is a 61 year old -[place] female who presents with is shortness of breath and chest pain. She states her symptoms started this morning. She was found to be hypoxic with an O2 sat of 69% on room air. She has oxygen but wasn't wearing it this morning. This put her on a CPAP and gave her an inch of Nitropaste secondary to her blood pressure being 200 systolic. She also complains of substernal chest pain that started earlier this morning also. She describes it is located substernal and does not radiate. She states she's been compliant with all of her medications. Review of Systems Review of Systems Constitutional: Denies fever or chills [] Eyes: Denies change in visual acuity, redness, or eye pain [] HENT: Denies nasal congestion or sore throat [] Respiratory: Positive for shortness of breath. Cardiovascular: No additional information not addressed in HPI [] GI: Denies abdominal pain, nausea, vomiting, bloody stools or diarrhea [] : Denies dysuria or hematuria [] Musculoskeletal: Denies back pain or joint pain [] Integument: Denies rash or skin lesions [] Neurologic: Denies headache, focal weakness or sensory changes [] Endocrine: Denies polyuria or polydipsia [] Current Medications Current Medications Current Medications Medications (Trade) Dose Ordered Sig/Rob Start Time Stop Time Status Last Admin Dose Admin Albuterol/ Ipratropium (Duoneb) 3 ml 1X ONCE 02/20/17 08:00 02/20/17 08:01 DC 02/20/17 09:17 3 ML Furosemide (Lasix) 40 mg 1X ONCE 02/20/17 08:30 02/20/17 08:31 DC 02/20/17 08:30 40 MG Methylprednisolone Sodium Succinate (SOLU-Medrol 125MG VIAL) 125 mg 1X ONCE 02/20/17 08:00 02/20/17 08:01 DC 02/20/17 07:56 125 MG Nitroglycerin (Nitrostat) 0.4 mg PRN Q5MIN PRN 02/20/17 07:30 02/21/17 07:29 02/20/17 07:53 0.4 MG Ondansetron HCl (Zofran) 4 mg PRN Q8HRS PRN 02/20/17 09:30 02/21/17 09:29 Allergies Allergies Allergies Coded Allergies Type Severity Reaction Last Updated Verified No Known Drug Allergies 06/10/14 No Physical Exam Physical Exam Constitutional: Well developed, well nourished, no acute distress, non-toxic appearance. [] HENT: Normocephalic, atraumatic, bilateral external ears normal, oropharynx moist, no oral exudates, nose normal. [] Eyes: PERRLA, EOMI, conjunctiva normal, no discharge. [] Neck: Normal range of motion, no tenderness, supple, no stridor. [] Cardiovascular:Heart rate regular rhythm, no murmur [] Lungs & Thorax: Bilateral breath sounds clear to auscultation [] Abdomen: Bowel sounds normal, soft, no tenderness, no masses, no pulsatile masses. [] Skin: Warm, dry, no erythema, no rash. [] Back: No tenderness, no CVA tenderness. [] Extremities: No tenderness, no cyanosis, no clubbing, ROM intact, no edema. [] Neurologic: Alert and oriented X 3, normal motor function, normal sensory function, no focal deficits noted. [] Psychologic: Affect normal, judgement normal, mood normal. [] Current Patient Data Vital Signs Vital Signs Date Time Temp Pulse Resp B/P (MAP) Pulse Ox O2 Delivery O2 Flow Rate FiO2 02/20/17 09:17 98 BiPAP/CPAP 02/20/17 07:53 96 165/77 02/20/17 07:52 26 Lab Values Laboratory Tests Test 02/20/17 07:50 02/20/17 07:55 White Blood Count 16.8 x10^3/uL (4.0-11.0) H Red Blood Count 3.75 x10^6/uL (3.50-5.40) Hemoglobin 9.6 g/dL (12.0-15.5) L Hematocrit 30.6 % (36.0-47.0) L Mean Corpuscular Volume 81 fL (79-100) Mean Corpuscular Hemoglobin 26 pg (25-35) Mean Corpuscular Hemoglobin Concent 32 g/dL (31-37) Red Cell Distribution Width 19.2 % (11.5-14.5) H Platelet Count 342 x10^3/uL (140-400) Neutrophils (%) (Auto) 88 % (31-73) H Lymphocytes (%) (Auto) 6 % (24-48) L Monocytes (%) (Auto) 6 % (0-9) Eosinophils (%) (Auto) 0 % (0-3) Basophils (%) (Auto) 1 % (0-3) Neutrophils # (Auto) 14.7 x10^3uL (1.8-7.7) H Lymphocytes # (Auto) 1.0 x10^3/uL (1.0-4.8) Monocytes # (Auto) 0.9 x10^3/uL (0.0-1.1) Eosinophils # (Auto) 0.0 x10^3/uL (0.0-0.7) Basophils # (Auto) 0.1 x10^3/uL (0.0-0.2) Platelet Estimate Pending Prothrombin Time 13.8 SEC (11.7-14.0) Prothrombin Time INR 1.1 (0.8-1.1) Sodium Level 143 mmol/L (136-145) Potassium Level 3.3 mmol/L (3.5-5.1) L Chloride Level 101 mmol/L (98-107) Carbon Dioxide Level 30 mmol/L (21-32) Anion Gap 12 (6-14) Blood Urea Nitrogen 18 mg/dL (7-20) Creatinine 1.4 mg/dL (0.6-1.0) H Estimated GFR (Cockcroft-Gault) 46.6 Glucose Level 177 mg/dL (70-99) H Calcium Level 9.5 mg/dL (8.5-10.1) Magnesium Level 1.6 mg/dL (1.8-2.4) L Total Bilirubin 0.7 mg/dL (0.2-1.0) Direct Bilirubin 0.1 mg/dL (0.0-0.2) Aspartate Amino Transferase (AST) 17 U/L (15-37) Alanine Aminotransferase (ALT) 16 U/L (14-59) Alkaline Phosphatase 159 U/L (46-116) H Creatine Kinase 103 U/L (26-192) Creatine Kinase MB (Mass) 1.2 ng/mL (0.0-3.6) Creatine Kinase MB Relative Index 1.2 % (0-4) Troponin I Quantitative 0.230 ng/mL (0.000-0.055) FW-Imd-V-Type Natriuretic Peptide 98395 pg/mL (0-124) H Total Protein 8.6 g/dL (6.4-8.2) H Albumin 3.3 g/dL (3.4-5.0) L Lipase 83 U/L (73-393) Thyroid Stimulating Hormone (TSH) 0.464 uIU/mL (0.358-3.74) O2 Saturation 93 % (92-99) Arterial Blood pH 7.43 (7.35-7.45) Arterial Blood pCO2 at Patient Temp 42 mmHg (35-46) Arterial Blood pO2 at Patient Temp 69 mmHg (65-108) Arterial Blood HCO3 27 mmol/L (21-28) Arterial Blood Base Excess 3 mmol/L (-3-3) FiO2 35 Laboratory Tests 02/20/17 07:50 Laboratory Tests 02/20/17 07:50 EKG EKG EKG shows sinus rhythm with rate of [address] elevations, T-wave inversions noted in lead V5 V6 with flattening of aVF, lead 2, normal axis, QTC 479 ms, as interpreted by me. Radiology/Procedures Radiology/Procedures [facility] [address] [place] [address] IMAGING REPORT Signed PATIENT: ZBIGNIEW RECINOS ACCOUNT: [id number] : 1955 LOCATION: ER AGE: 61 SEX: F EXAM STATUS: PRE ER ORD. PHYSICIAN: FOSTER DO MD REASON: soa PROCEDURE: PORTABLE CHEST 1V Portable chest, 02/20/2017: History: Shortness of breath Comparison is made to a study from 12/19/2016. The heart is enlarged. The pulmonary vascularity appears congested with loss of vascular margination. Similar findings were present on the previous study. No pulmonary consolidation is evident. No pleural fluid is seen. IMPRESSION: Mild ongoing or recurrent congestive heart failure. DICTATED and SIGNED BY: MICHEL BRIGHT MD DATE: 02/20/17 0756 CC: FOSTER DO MD; NO PCP ~ Impressions: Chest pain Acute respiratory failure requiring BiPAP Elevated troponin COPD Course & Med Decision Making Course & Med Decision Making Pertinent Labs and Imaging studies reviewed. (See chart for details) Patient has substernal chest pain and shortness of breath requiring BiPAP. She presented with hypertension with systolics in the 200 and Nitropaste was applied by EMS. Her blood pressures are down the 170s. ABG does not show any acute process. She was given 125 Solu-Medrol and 40 IV Lasix. She does have an elevated troponin of 0.2. This is similar to her previous elevated troponins. She does have chronic renal insufficiency with stage III disease. Patient is being admitted to the hospitalist with cardiology consultation. Patient's being admitted to the ICU on BiPAP at this time. Orders have been written. I spoke with Dr. Paris who does NOT recommend starting heparin or Lovenox at this time. Critical care time: 45 minutes of critical care time was used on this patient excluding procedures. Dragon Disclaimer Dragon Disclaimer This electronic medical record was generated, in whole or in part, using a voice recognition dictation system. Departure Departure Impression: Primary Impression: Acute CHF Disposition: ADMITTED INPATIENT Admitting Physician: Other Condition: GUARDED Referrals: NO PCP (PCP) Problem Qualifiers Primary Impression: Acute CHF Congestive heart failure type: unspecified congestive heart failure type Qualified Codes: I50.9 - Heart failure, unspecified FOSTER DO MD Feb 20, 2017 07:27
[2017-02-20] MEDS: NITROGLYCERIN SUBLINGUAL 0.4 MG BOTTLE OF 25. SL PRN ×2 (07:44→07:53)
--- NOTE | 2017-02-20 07:59 | RAD ---
Portable chest, 02/20/2017: History: Shortness of breath Comparison is made to a study from 12/19/2016. The heart is enlarged. The pulmonary vascularity appears congested with loss of vascular margination. Similar findings were present on the previous study. No pulmonary consolidation is evident. No pleural fluid is seen. IMPRESSION: Mild ongoing or recurrent congestive heart failure.
[2017-02-20] MEDS ORDERED: methylPREDNISolone SOD SUCC PF 125 MG/2 ML VIAL. IV ONE (08:00)
[2017-02-20] MEDS ORDERED: IPRATRPIUM/ALBUTEROL 0.5/2.5MG 3 ML NEBU. NEB ONE (08:00)
[2017-02-20 08:03] LABS: HCO3 ABG 27 mmol/L (21-28); PCO2 ABG 42 mmHg (35-46); PH ABG 7.43 (7.35-7.45); PO2 ABG 69 mmHg (65-108); SAT O2 ABG 93 % (92-99)
[2017-02-20 08:04] LABS: FIO2 ABG 35
[2017-02-20 08:05] LABS: BASO # 0.1 x10^3/uL (0.0-0.2); BASO % 1 % (0-3); EOS % 0 % (0-3); HEMATOCRIT 30.6 % (36.0-47.0); HEMOGLOBIN 9.6 g/dL (12.0-15.5); LYMPH % 6 % (24-48); MEAN CORPUSCULAR HEMOGLOBIN 26 pg (25-35); MEAN CORPUSCULAR HGB CONC 32 g/dL (31-37); MEAN CORPUSCULAR VOLUME 81 fL (79-100); MONO % 6 % (0-9); NEUT % 88 % (31-73); PLATELET COUNT 342 x10^3/uL (140-400); RED BLOOD COUNT 3.75 x10^6/uL (3.50-5.40); RED CELL DISTRIBUTION WIDTH 19.2 % (11.5-14.5); WHITE BLOOD COUNT 16.8 x10^3/uL (4.0-11.0)
[2017-02-20 08:21] LABS: INR 1.1 (0.8-1.1); PROTHROMBIN TIME PATIENT 13.8 SEC (11.7-14.0)
[2017-02-20 08:23] LABS: CALCIUM 9.5 mg/dL (8.5-10.1); CREATININE 1.4 mg/dL (0.6-1.0); GFR 46.6; POTASSIUM 3.3 mmol/L (3.5-5.1)
[2017-02-20 08:27] LABS: ALBUMIN 3.3 g/dL (3.4-5.0); DIRECT BILIRUBIN 0.1 mg/dL (0.0-0.2); MAGNESIUM 1.6 mg/dL (1.8-2.4); TOTAL BILIRUBIN 0.7 mg/dL (0.2-1.0); TOTAL PROTEIN 8.6 g/dL (6.4-8.2)
[2017-02-20] MEDS ORDERED: FUROSEMIDE 40 MG/4 ML VIAL. IVP ONE (08:30)
[2017-02-20 08:43] LABS: CKMB MASS 1.2 ng/mL (0.0-3.6)
[2017-02-20] MEDS ORDERED: ONDANSETRON PF 4 MG/2 ML VIAL. IV PRN (09:30)
[2017-02-20 10:57] LABS: % BASOS 1 % (0-3); ANISOCYTOSIS SLIGHT; PLT ESTIMATE ADEQUATE (ADEQUATE)
[2017-02-20] MEDS ORDERED: POTASSIUM CHLORIDE 10MEQ 100 ML IV PRN ×3 (11:15)
[2017-02-20] MEDS ORDERED: hydrALAZINE 20 MG/ML VIAL. IVP PRN ×2 (11:30→19:45)
[2017-02-20] MEDS ORDERED: POTASSIUM CHLORIDE 20 MEQ TABLET.ER. PO PRN ×2 (11:45)
[2017-02-20] MEDS ORDERED: POTASSIUM CHLORIDE 20 MEQ TABLET.ER. PO SCH ×2 (11:45)
[2017-02-20] MEDS ORDERED: POTASSIUM CHLORIDE 20 MEQ TABLET.ER. PO ONE ×2 (11:45)
[2017-02-20] MEDS ORDERED: MAGNESIUM SULFATE 4GM 100 ML IV ONE (12:00)
[2017-02-20] MEDS ORDERED: POTASSIUM CHLORIDE 10MEQ 100 ML IV SCH (12:00)
--- NOTE | 2017-02-20 12:15 | CONS ---
DATE OF CONSULTATION: 02/20/2017 REASON FOR CONSULTATION: Elevated troponin and dyspnea. HISTORY OF PRESENT ILLNESS: The patient is an unfortunate, well known to us with her previous admissions multiple times with cocaine-induced hypertensive cardiomyopathy. She presents with recurrent cocaine abuse and has had multiple hypertensive episodes, and this resulted in acute flash pulmonary edema and decompensated heart failure. Unfortunately, the patient has been noncompliant as previous. The patient was also started on BiPAP therapy, and this has helped to resolve her issues, and she has been able to be diuresed with Lasix therapy. PAST MEDICAL HISTORY: 1. Hypertension. 2. Dyslipidemia. 3. Drug abuse. 4. Morbid obesity. 5. Chronic kidney disease. SOCIAL HISTORY: As noted above. FAMILY HISTORY: Noncontributory. ALLERGIES: No known drug allergies. CURRENT CARDIOVASCULAR MEDICATIONS: Hydralazine 10 mg q.4 hours p.r.n. REVIEW OF SYSTEMS: Negative for 10 out of 14 systems reviewed, unless otherwise mentioned above in HPI. PHYSICAL EXAMINATION: VITAL SIGNS: Afebrile, 89, 24, 191/85, 98% on BiPAP. GENERAL: She is morbidly obese and was resting comfortably. HEAD AND NECK: Unremarkable. She has a thick neck consistent with signs of obstructive sleep apnea. HEART: Regular, without any obvious murmurs, rubs, gallops. Distant heart sounds. LUNGS: With bilateral rhonchi with diminished breath sounds anteriorly. Morbid obesity precludes further assessment. ABDOMEN: Morbidly obese, but no tenderness to palpation. Distant bowel sounds. EXTREMITIES: 2+ radial and dorsalis pedis pulses. Mild nonpitting edema bilaterally. NEUROLOGIC: No focal deficits. DIAGNOSTIC STUDIES: Labs are notable for hemoglobin 9.6, platelet count 342. Creatinine of 1.4. Her troponin is minimally elevated at 0.2, with a BNP of greater than 22,000. Urine toxicology is pending, but her previous urine toxicology has noted positive cocaine over the last 2-3 months. Chest x-ray is unremarkable except to suggest mild congestive heart failure consistent with her flash pulmonary edema. Her EKG is also without any acute ST elevations. Chronic nonspecific ST-T wave changes are noted. ASSESSMENT: Cocaine-induced hypertensive flash pulmonary edema. RECOMMENDATIONS: 1. At this present time, no further cardiovascular testing will be performed on this patient given the fact that she is a poor candidate for any cardiac interventions due to her medication noncompliance and cocaine abuse. 2. We will start the patient on carvedilol therapy and hydralazine or CYDNEY inhibitor for a long-term blood pressure management. Ultimately, the patient will continue to have recurrent rebound episodes of hypertension unless she abstains from cocaine. I discussed this with the patient, but it is unclear if she will follow through on an outpatient basis. Thank you for this consultation. PINEDA SPARKS MD DR: APRYL/derik JOB#: [id number] / [id number]
--- NOTE | 2017-02-20 12:29 | EKG ---
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
--- NOTE | 2017-02-20 14:24 | PDOC ---
PULMONARY PROGRESS NOTES Vitals Vital Signs Date Time Temp Pulse Resp B/P (MAP) Pulse Ox O2 Delivery O2 Flow Rate FiO2 02/20/17 12:05 94 Nasal Cannula 3.0 02/20/17 09:22 89 24 191/85 (120) General: Alert, No acute distress HEENT: Other Lungs: Clear Cardiovascular: S1, S2 Abdomen: Soft, Non-tender Extremities: No Edema Labs Laboratory Tests Test 02/20/17 07:50 02/20/17 07:55 White Blood Count 16.8 x10^3/uL (4.0-11.0) Red Blood Count 3.75 x10^6/uL (3.50-5.40) Hemoglobin 9.6 g/dL (12.0-15.5) Hematocrit 30.6 % (36.0-47.0) Mean Corpuscular Volume 81 fL (79-100) Mean Corpuscular Hemoglobin 26 pg (25-35) Mean Corpuscular Hemoglobin Concent 32 g/dL (31-37) Red Cell Distribution Width 19.2 % (11.5-14.5) Platelet Count 342 x10^3/uL (140-400) Neutrophils (%) (Auto) 88 % (31-73) Lymphocytes (%) (Auto) 6 % (24-48) Monocytes (%) (Auto) 6 % (0-9) Eosinophils (%) (Auto) 0 % (0-3) Basophils (%) (Auto) 1 % (0-3) Neutrophils # (Auto) 14.7 x10^3uL (1.8-7.7) Lymphocytes # (Auto) 1.0 x10^3/uL (1.0-4.8) Monocytes # (Auto) 0.9 x10^3/uL (0.0-1.1) Eosinophils # (Auto) 0.0 x10^3/uL (0.0-0.7) Basophils # (Auto) 0.1 x10^3/uL (0.0-0.2) Segmented Neutrophils % 89 % (35-66) Lymphocytes % 5 % (24-48) Monocytes % 5 % (0-10) Basophils % 1 % (0-3) Platelet Estimate Adequate (ADEQUATE) Anisocytosis Slight Prothrombin Time 13.8 SEC (11.7-14.0) Prothromb Time International Ratio 1.1 (0.8-1.1) Sodium Level 143 mmol/L (136-145) Potassium Level 3.3 mmol/L (3.5-5.1) Chloride Level 101 mmol/L (98-107) Carbon Dioxide Level 30 mmol/L (21-32) Anion Gap 12 (6-14) Blood Urea Nitrogen 18 mg/dL (7-20) Creatinine 1.4 mg/dL (0.6-1.0) Estimated GFR (Cockcroft-Gault) 46.6 Glucose Level 177 mg/dL (70-99) Calcium Level 9.5 mg/dL (8.5-10.1) Magnesium Level 1.6 mg/dL (1.8-2.4) Total Bilirubin 0.7 mg/dL (0.2-1.0) Direct Bilirubin 0.1 mg/dL (0.0-0.2) Aspartate Amino Transf (AST/SGOT) 17 U/L (15-37) Alanine Aminotransferase (ALT/SGPT) 16 U/L (14-59) Alkaline Phosphatase 159 U/L (46-116) Creatine Kinase 103 U/L (26-192) Creatine Kinase MB (Mass) 1.2 ng/mL (0.0-3.6) Creatine Kinase MB Relative Index 1.2 % (0-4) Troponin I Quantitative 0.230 ng/mL (0.000-0.055) TO-Sos-I-Type Natriuretic Peptide 19641 pg/mL (0-124) Total Protein 8.6 g/dL (6.4-8.2) Albumin 3.3 g/dL (3.4-5.0) Lipase 83 U/L (73-393) Thyroid Stimulating Hormone (TSH) 0.464 uIU/mL (0.358-3.74) O2 Saturation 93 % (92-99) Arterial Blood pH 7.43 (7.35-7.45) Arterial Blood pCO2 at Patient Temp 42 mmHg (35-46) Arterial Blood pO2 at Patient Temp 69 mmHg (65-108) Arterial Blood HCO3 27 mmol/L (21-28) Arterial Blood Base Excess 3 mmol/L (-3-3) FiO2 35 Laboratory Tests Test 02/20/17 07:50 02/20/17 07:55 White Blood Count 16.8 x10^3/uL (4.0-11.0) Red Blood Count 3.75 x10^6/uL (3.50-5.40) Hemoglobin 9.6 g/dL (12.0-15.5) Hematocrit 30.6 % (36.0-47.0) Mean Corpuscular Volume 81 fL (79-100) Mean Corpuscular Hemoglobin 26 pg (25-35) Mean Corpuscular Hemoglobin Concent 32 g/dL (31-37) Red Cell Distribution Width 19.2 % (11.5-14.5) Platelet Count 342 x10^3/uL (140-400) Neutrophils (%) (Auto) 88 % (31-73) Lymphocytes (%) (Auto) 6 % (24-48) Monocytes (%) (Auto) 6 % (0-9) Eosinophils (%) (Auto) 0 % (0-3) Basophils (%) (Auto) 1 % (0-3) Neutrophils # (Auto) 14.7 x10^3uL (1.8-7.7) Lymphocytes # (Auto) 1.0 x10^3/uL (1.0-4.8) Monocytes # (Auto) 0.9 x10^3/uL (0.0-1.1) Eosinophils # (Auto) 0.0 x10^3/uL (0.0-0.7) Basophils # (Auto) 0.1 x10^3/uL (0.0-0.2) Segmented Neutrophils % 89 % (35-66) Lymphocytes % 5 % (24-48) Monocytes % 5 % (0-10) Basophils % 1 % (0-3) Platelet Estimate Adequate (ADEQUATE) Anisocytosis Slight Prothrombin Time 13.8 SEC (11.7-14.0) Prothromb Time International Ratio 1.1 (0.8-1.1) Sodium Level 143 mmol/L (136-145) Potassium Level 3.3 mmol/L (3.5-5.1) Chloride Level 101 mmol/L (98-107) Carbon Dioxide Level 30 mmol/L (21-32) Anion Gap 12 (6-14) Blood Urea Nitrogen 18 mg/dL (7-20) Creatinine 1.4 mg/dL (0.6-1.0) Estimated GFR (Cockcroft-Gault) 46.6 Glucose Level 177 mg/dL (70-99) Calcium Level 9.5 mg/dL (8.5-10.1) Magnesium Level 1.6 mg/dL (1.8-2.4) Total Bilirubin 0.7 mg/dL (0.2-1.0) Direct Bilirubin 0.1 mg/dL (0.0-0.2) Aspartate Amino Transf (AST/SGOT) 17 U/L (15-37) Alanine Aminotransferase (ALT/SGPT) 16 U/L (14-59) Alkaline Phosphatase 159 U/L (46-116) Creatine Kinase 103 U/L (26-192) Creatine Kinase MB (Mass) 1.2 ng/mL (0.0-3.6) Creatine Kinase MB Relative Index 1.2 % (0-4) Troponin I Quantitative 0.230 ng/mL (0.000-0.055) LY-Tfw-P-Type Natriuretic Peptide 43229 pg/mL (0-124) Total Protein 8.6 g/dL (6.4-8.2) Albumin 3.3 g/dL (3.4-5.0) Lipase 83 U/L (73-393) Thyroid Stimulating Hormone (TSH) 0.464 uIU/mL (0.358-3.74) O2 Saturation 93 % (92-99) Arterial Blood pH 7.43 (7.35-7.45) Arterial Blood pCO2 at Patient Temp 42 mmHg (35-46) Arterial Blood pO2 at Patient Temp 69 mmHg (65-108) Arterial Blood HCO3 27 mmol/L (21-28) Arterial Blood Base Excess 3 mmol/L (-3-3) FiO2 35 Medications Active Scripts Medications Dose Route/Sig Max Daily Dose Days Date Category Feosol (Ferrous Sulfate) 325 Mg Tablet 325 Mg PO QHS 12/15/16 Rx Voltaren (Diclofenac Sodium) 100 Gm Gel..gram. 1 Sohan TP BID 12/15/16 Rx Doxycycline Hyclate 100 Mg Tablet 100 Mg PO BID 12/04/16 Rx Percocet 10-325 Mg Tablet (Oxycodone/Acetaminophen) 1 Each Tablet 1 Tab PO Q4-6HRS 12/04/16 Rx Toujeo Solostar (Insulin Glargine,Hum.rec.anlog) 300 Unit/1 Ml Insuln.pen 36 Unit SQ HS 10/10/16 Reported Amlodipine Besylate 10 Mg Tablet 10 Mg PO DAILY 09/27/15 Rx Novolog Flexpen (Insulin Aspart) 100 Unit/1 Ml Insuln.pen 10 Units SQ TIDAC 05/27/15 Rx Hydralazine Hcl 50 Mg Tablet 100 Mg PO Q8HRS 05/27/15 Rx Furosemide 40 Mg Tablet 40 Mg PO DAILY 05/27/15 Rx Atorvastatin Calcium 40 Mg Tablet 1 Tab PO DAILY 05/23/15 Reported Omeprazole 40 Mg Capsule.dr 1 Cap PO DAILY 05/23/15 Reported Ventolin Hfa Inhaler (Albuterol Sulfate) 18 Gm Hfa.aer.ad 2 Puff IH PRN Q4-6HRS 05/23/15 Reported Glipizide 10 Mg Tablet 1 Tab PO BIDAC 06/10/14 Reported Clonidine Hcl 0.2 Mg Tablet 1 Tab PO BID 06/10/14 Reported Coreg (Carvedilol) 25 Mg Tablet 1 Tab PO [id number] 06/10/14 Reported Impression . DICTATED AGREE WITH CURRENT RX RF FLASH PULMONARY EDEMA DIMPLE ACOSTA MD Feb 20, 2017 14:24
[2017-02-20 14:25] LABS: BILIRUBIN,URINE NEGATIVE (NEG); GLUCOSE,URINE 100 mg/dL (NEG); NITRITE,URINE NEGATIVE (NEG); PH,URINE 5.5; PROTEIN,URINE >=300 mg/dL (NEG-TRACE); UROBILINOGEN,URINE 0.2 mg/dL (0.2 mg/dL)
[2017-02-20 14:32] LABS: BARBITURATES NEG (NEG); BENZODIAZEPINES POS (NEG); CANNABINOIDS NEG (NEG); COCAINE POS (NEG); METHADONE NEG (NEG); OPIATES NEG (NEG); PHENCYCLIDINE NEG (NEG)
[2017-02-20 14:35] LABS: BACTERIA,URINE MODERATE /HPF (0-FEW); RBC,URINE RARE /HPF (0-2); SQUAMOUS EPITHELIAL CELL,UR MANY /LPF
--- NOTE | 2017-02-20 16:02 | CONS ---
DATE OF CONSULTATION: 02/20/2017 DATE OF SERVICE: 02/20/2017 ATTENDING PHYSICIAN: Dr. Alan. REASON FOR CONSULTATION: The patient seen in pulmonary consultation at the request of Dr. Alan for [id number] respiratory failure. HISTORY OF PRESENT ILLNESS: The patient is well known to me from previous hospitalization, presented with shortness of breath, chest pain. She had O2 saturation on room air of 69%. She was placed on CPAP, started on nitro paste, blood pressure was elevated. She had a chest x-ray which revealed bilateral pulmonary infiltrates compatible with pulmonary edema. Laboratory data was reviewed. White count was elevated. Hemoglobin and hematocrit were noted. Potassium was low. PAST MEDICAL HISTORY: Hypertension, dyslipidemia, drug use, morbid obesity, obstructive sleep apnea, chronic kidney disease. PAST SURGICAL HISTORY: As above. SOCIAL HISTORY: She continues to smoke, use of cocaine in the past. REVIEW OF SYSTEMS: As indicated above, otherwise, a 10-point system was reviewed and negative. PHYSICAL EXAMINATION: GENERAL: The patient was in the intensive care unit. VITAL SIGNS: She is currently off of BiPAP. O2 saturation greater than 92% on 2 liters. HEENT: Eyes, the sclerae were nonicteric. NECK: Jugular venous distention could not be assessed secondary to body habitus. CHEST: Full expansion. LUNGS: Poor airway flow, no wheezes. CARDIOVASCULAR: Regular rate and rhythm with S1, S2, no S3. ABDOMEN: Soft, nontender, obese. EXTREMITIES: No clubbing, cyanosis or pitting edema. LABORATORY DATA: Labs were reviewed. As indicated above, BNP was elevated. Chest x-ray compatible with CHF. IMPRESSION: 1. Wliqj-zk-gbjxdfl hypoxemic respiratory failure. 2. Acute systolic heart failure. 3. Uncontrolled hypertension. 4. Drug use. 5. Obstructive sleep apnea. 6. Morbid obesity. PLAN: 1. Continue current p.r.n. BiPAP. 2. Diurese. 3. Consult Cardiology already performed. 4. No need for antibiotics. 5. The patient instructed on the importance of discontinuing all drug use including tobacco. DIMPLE ACOSTA MD DR: JUDI/derik JOB#: [id number] / [id number]
[2017-02-20] MEDS ORDERED: ALBUTEROL SULFATE 2.5 MG/3 ML NEBU. NEB PRN ×2 (17:45→19:45)
[2017-02-20] MEDS ORDERED: DEXTROSE 50% 25 GM / 50ML DISP.SYRIN. IV PRN (17:45)
[2017-02-20] MEDS: amLODIPine BESYLATE 10 MG TABLET PO SCH (17:57)
[2017-02-20] MEDS: CARVEDILOL 12.5 MG TABLET. PO SCH (17:58)
[2017-02-20] MEDS: PANTOPRAZOLE 40 MG TABLET.DR. PO SCH (17:58)
[2017-02-20] MEDS ORDERED: oxyCODONE/APAP 10/325 1 TAB TABLET PO SCH (18:00)
[2017-02-20] MEDS: INSULIN ASPART 300 UNITS/3 ML INSULN.PEN SQ SCH (18:08)
[2017-02-20] MEDS: IPRATRPIUM/ALBUTEROL 0.5/2.5MG 3 ML NEBU. NEB SCH (19:43)
--- NOTE | 2017-02-20 19:45 | HP ---
ADMIT DATE: 02/20/2017 CHIEF COMPLAINT: Shortness of breath. HISTORY OF PRESENT ILLNESS: The patient is a 61-year-old morbidly obese woman with chronic kidney disease, hypertension, chronic obstructive pulmonary disease, O2 dependent, who presented to the Emergency Room with 2-day history of shortness of breath. She relates that she has a nonproductive cough and sore throat as well. She had been quite distraught over the of her son 20 years ago and once again used cocaine with a friend. She denies any fevers, chills, any other symptom. In the Emergency Room, chest x-ray was consistent with pulmonary edema. Labs revealed mild troponin leak and blood pressure was significantly elevated. She was therefore started on BiPAP and transferred to the ICU for further monitoring and care. PAST MEDICAL HISTORY: Chronic obstructive pulmonary disease, O2 dependent at least at night; hypertension, hyperlipidemia, chronic kidney disease, morbid obesity, multi-substance abuse. FAMILY HISTORY: No known heart disease. A son of glioblastoma. SOCIAL HISTORY: Lives by herself, smokes a few cigarettes here and there. Uses cocaine. ALLERGIES: No known drug allergies. MEDICATIONS: MAR reconciled with home medications. REVIEW OF SYSTEMS: Positive as per HPI. She is currently off BiPAP and breathing without any difficulties with nasal O2 at 2 liters. Rest of organ system review is negative. PHYSICAL EXAMINATION: VITAL SIGNS: From today show a blood pressure of 174/69, heart rate at 96, respiratory rate at 26. She is afebrile. GENERAL: This is a morbidly obese 61-year-old woman, awake, alert, in no acute distress. HEENT: Shows no scleral icterus. Oral mucosa is pink and moist. NECK: Supple. LUNGS: Clear to auscultation bilaterally. HEART: Regular rate and rhythm. ABDOMEN: Obese, positive bowel sounds. EXTREMITIES: Show no edema. SKIN: Warm, soft and dry. LABORATORY DATA: CBC with a WBC of 16.8, hemoglobin 9.6, platelets of 342. Chemistries with a BUN and creatinine of 18 and 1.4, potassium at 3.3, mag at 1.6. LFTs within normal, albumin at 3.3. Tox screen positive for benzos and cocaine. UA without signs of infection. IMAGING: Chest x-ray with mild ongoing or recurrent congestive heart failure. ASSESSMENT AND PLAN: The patient is a 61-year-old morbidly obese woman with multiple medical issues who presents with what appears to be a flash pulmonary edema after cocaine cardiomyopathy exacerbation. She has received Lasix. BiPAP has significantly improved her respiratory status. Cardiology and Pulmonary have seen the patient already, greatly appreciate their input. The patient appears now stable from a cardiopulmonary standpoint. Hypertensive urgency unfortunately is ongoing. We will restart her home medications, add hydralazine p.r.n. as well. Renal insufficiency appears to be at baseline. We will replete magnesium and potassium and monitor electrolytes and renal function. Prophylaxis will be started with proton pump inhibitor and Lovenox. CIARAN CARBALLO MD DR: ANDREW/nts JOB#: [id number] / [id number] DARREL
[2017-02-20] MEDS: FERROUS SULFATE 325 MG TABLET. PO SCH (20:40)
[2017-02-20] MEDS: ATORVASTATIN CALCIUM 40 MG TABLET. PO SCH (20:40)
[2017-02-20] MEDS: cloNIDine HCL 0.2 MG TABLET PO SCH (20:42)
[2017-02-20] MEDS: INSULIN DETEMIR 300 UNITS/3 ML INSULN.PEN. SQ SCH (20:46)
[2017-02-20] MEDS: DICLOFENAC SODIUM 1% TOPICAL GEL 100GM TUBE. TP SCH (20:46)
[2017-02-20] MEDS ORDERED: INSULIN GLARGINE HUM REC ANLOG 36 UNIT SQ SCH (21:00)
[2017-02-20] MEDS ORDERED: IBUPROFEN 400 MG TABLET. PO PRN (21:30)
[2017-02-21] VITALS (8 sets, daily range): BP systolic 102–149; BP diastolic 45–79
[2017-02-21] MEDS: oxyCODONE/APAP 10/325 1 TAB TABLET PO PRN ×4 (02:14→20:19)
[2017-02-21 03:34] LABS: BASO # 0.1 x10^3/uL (0.0-0.2); BASO % 1 % (0-3); EOS % 0 % (0-3); HEMATOCRIT 27.3 % (36.0-47.0); HEMOGLOBIN 8.6 g/dL (12.0-15.5); LYMPH # 0.5 x10^3/uL (1.0-4.8); LYMPH % 6 % (24-48); MEAN CORPUSCULAR HEMOGLOBIN 26 pg (25-35); MEAN CORPUSCULAR HGB CONC 32 g/dL (31-37); MEAN CORPUSCULAR VOLUME 83 fL (79-100); MONO % 6 % (0-9); NEUT % 87 % (31-73); PLATELET COUNT 292 x10^3/uL (140-400); RED CELL DISTRIBUTION WIDTH 19.4 % (11.5-14.5); WHITE BLOOD COUNT 8.9 x10^3/uL (4.0-11.0)
[2017-02-21 03:48] LABS: CALCIUM 8.6 mg/dL (8.5-10.1); CREATININE 2.2 mg/dL (0.6-1.0); GFR 27.6; POTASSIUM 3.8 mmol/L (3.5-5.1)
[2017-02-21] MEDS: PANTOPRAZOLE 40 MG TABLET.DR. PO SCH (08:09)
[2017-02-21] MEDS: IPRATRPIUM/ALBUTEROL 0.5/2.5MG 3 ML NEBU. NEB SCH ×4 (08:34→19:39)
[2017-02-21] MEDS: CARVEDILOL 12.5 MG TABLET. PO SCH ×2 (08:55→17:54)
[2017-02-21] MEDS: amLODIPine BESYLATE 10 MG TABLET PO SCH (08:56)
[2017-02-21] MEDS: glipiZIDE 5 MG TABLET PO SCH ×2 (08:56→17:54)
[2017-02-21] MEDS: DICLOFENAC SODIUM 1% TOPICAL GEL 100GM TUBE. TP SCH ×3 (08:56→20:19)
[2017-02-21] MEDS: cloNIDine HCL 0.2 MG TABLET PO SCH ×2 (08:56→20:20)
[2017-02-21] MEDS: FUROSEMIDE 40 MG TABLET. PO SCH (08:56)
[2017-02-21] MEDS: INSULIN ASPART 300 UNITS/3 ML INSULN.PEN SQ SCH ×6 (09:00→17:55)
[2017-02-21] MEDS ORDERED: INSULIN DETEMIR 300 UNITS/3 ML INSULN.PEN. SQ STA (09:29)
[2017-02-21] MEDS ORDERED: INFLUENZA VAX SCREEN BY RX. MC ONE (09:45)
[2017-02-21] MEDS ORDERED: FLU VACC QS2017-18 (36MOS+)/PF 0.5 ML SYRINGE. VAX IM ONE (10:00)
[2017-02-21] MEDS ORDERED: MORPHINE SULFATE 2 MG/ML DISP.SYRIN. IV PRN (13:00)
[2017-02-21] MEDS ORDERED: ONDANSETRON PF 4 MG/2 ML VIAL. IV PRN (13:00)
[2017-02-21] MEDS ORDERED: DOCUSATE SODIUM 100 MG CAPSULE. PO PRN (13:00)
[2017-02-21] MEDS ORDERED: ACETAMINOPHEN 325 MG TABLET. PO PRN (13:00)
[2017-02-21] MEDS ORDERED: hydrALAZINE 20 MG/ML VIAL. IVP PRN (13:00)
--- NOTE | 2017-02-21 13:03 | PDOC ---
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 add one time levemir 10u today dvt ppx PTOT History of Present Illness History of Present Illness ROS: NO fever, chills, sob or chest pain sob much better, off bipap, on NC 2 L NEED BIPAP at home but not following pcp and no pulm uncompliance likely, altho saying takes home meds MARY cr 2.2 Vitals Vitals Vital Signs Date Time Temp Pulse Resp B/P (MAP) Pulse Ox O2 Delivery O2 Flow Rate FiO2 02/21/17 09:15 22 96 Nasal Cannula 3.0 02/21/17 08:56 74 149/69 02/21/17 07:00 97.9 97.9 Physical Exam General: Alert, Oriented X3, Cooperative Heart: Regular rate, Normal S1, Normal S2 Lungs: Clear Abdomen: Normal bowel sounds, Soft Extremities: No clubbing, No cyanosis Skin: No rashes Labs LABS Laboratory Tests Test 02/20/17 14:00 02/20/17 15:20 02/20/17 18:06 02/20/17 20:44 Urine Collection Type Unknown Urine Color Yellow Urine Clarity Clear Urine pH 5.5 Urine Specific Dola 1.020 Urine Protein >=300 mg/dL (NEG-TRACE) Urine Glucose (UA) 100 mg/dL (NEG) Urine Ketones (Stick) 15 mg/dL (NEG) Urine Blood Negative (NEG) Urine Nitrite Negative (NEG) Urine Bilirubin Negative (NEG) Urine Urobilinogen Dipstick 0.2 mg/dL (0.2 mg/dL) Urine Leukocyte Esterase Negative (NEG) Urine RBC Rare /HPF (0-2) Urine WBC 1-4 /HPF (0-4) Urine Squamous Epithelial Cells Many /LPF Urine Bacteria Moderate /HPF (0-FEW) Urine Hyaline Casts Many /HPF Urine Mucus Marked /LPF Urine Opiates Screen Neg (NEG) Urine Methadone Screen Neg (NEG) Urine Barbiturates Neg (NEG) Urine Phencyclidine Screen Neg (NEG) Urine Amphetamine/Methamphetamine Neg (NEG) Urine Benzodiazepines Screen Pos (NEG) Urine Cocaine Screen Pos (NEG) Urine Cannabinoids Screen Neg (NEG) Urine Ethyl Alcohol Neg (NEG) Troponin I Quantitative 0.225 ng/mL (0.000-0.055) Glucose (Fingerstick) 458 mg/dL (70-99) 467 mg/dL (70-99) Test 02/20/17 21:25 02/21/17 03:05 02/21/17 08:48 02/21/17 12:10 Troponin I Quantitative 0.204 ng/mL (0.000-0.055) White Blood Count 8.9 x10^3/uL (4.0-11.0) Red Blood Count 3.30 x10^6/uL (3.50-5.40) Hemoglobin 8.6 g/dL (12.0-15.5) Hematocrit 27.3 % (36.0-47.0) Mean Corpuscular Volume 83 fL (79-100) Mean Corpuscular Hemoglobin 26 pg (25-35) Mean Corpuscular Hemoglobin Concent 32 g/dL (31-37) Red Cell Distribution Width 19.4 % (11.5-14.5) Platelet Count 292 x10^3/uL (140-400) Neutrophils (%) (Auto) 87 % (31-73) Lymphocytes (%) (Auto) 6 % (24-48) Monocytes (%) (Auto) 6 % (0-9) Eosinophils (%) (Auto) 0 % (0-3) Basophils (%) (Auto) 1 % (0-3) Neutrophils # (Auto) 7.7 x10^3uL (1.8-7.7) Lymphocytes # (Auto) 0.5 x10^3/uL (1.0-4.8) Monocytes # (Auto) 0.6 x10^3/uL (0.0-1.1) Eosinophils # (Auto) 0.0 x10^3/uL (0.0-0.7) Basophils # (Auto) 0.1 x10^3/uL (0.0-0.2) Sodium Level 138 mmol/L (136-145) Potassium Level 3.8 mmol/L (3.5-5.1) Chloride Level 101 mmol/L (98-107) Carbon Dioxide Level 32 mmol/L (21-32) Anion Gap 5 (6-14) Blood Urea Nitrogen 33 mg/dL (7-20) Creatinine 2.2 mg/dL (0.6-1.0) Estimated GFR (Cockcroft-Gault) 27.6 Glucose Level 404 mg/dL (70-99) Calcium Level 8.6 mg/dL (8.5-10.1) Glucose (Fingerstick) 304 mg/dL (70-99) 158 mg/dL (70-99) Test 02/21/17 12:45 Glucose (Fingerstick) 134 mg/dL (70-99) Comment Review of Relevant I have reviewed the following items jessee (where applicable) has been applied. Labs Laboratory Tests Test 02/20/17 07:50 02/20/17 07:55 02/20/17 14:00 02/20/17 15:20 White Blood Count 16.8 x10^3/uL (4.0-11.0) Red Blood Count 3.75 x10^6/uL (3.50-5.40) Hemoglobin 9.6 g/dL (12.0-15.5) Hematocrit 30.6 % (36.0-47.0) Mean Corpuscular Volume 81 fL (79-100) Mean Corpuscular Hemoglobin 26 pg (25-35) Mean Corpuscular Hemoglobin Concent 32 g/dL (31-37) Red Cell Distribution Width 19.2 % (11.5-14.5) Platelet Count 342 x10^3/uL (140-400) Neutrophils (%) (Auto) 88 % (31-73) Lymphocytes (%) (Auto) 6 % (24-48) Monocytes (%) (Auto) 6 % (0-9) Eosinophils (%) (Auto) 0 % (0-3) Basophils (%) (Auto) 1 % (0-3) Neutrophils # (Auto) 14.7 x10^3uL (1.8-7.7) Lymphocytes # (Auto) 1.0 x10^3/uL (1.0-4.8) Monocytes # (Auto) 0.9 x10^3/uL (0.0-1.1) Eosinophils # (Auto) 0.0 x10^3/uL (0.0-0.7) Basophils # (Auto) 0.1 x10^3/uL (0.0-0.2) Segmented Neutrophils % 89 % (35-66) Lymphocytes % 5 % (24-48) Monocytes % 5 % (0-10) Basophils % 1 % (0-3) Platelet Estimate Adequate (ADEQUATE) Anisocytosis Slight Prothrombin Time 13.8 SEC (11.7-14.0) Prothromb Time International Ratio 1.1 (0.8-1.1) Sodium Level 143 mmol/L (136-145) Potassium Level 3.3 mmol/L (3.5-5.1) Chloride Level 101 mmol/L (98-107) Carbon Dioxide Level 30 mmol/L (21-32) Anion Gap 12 (6-14) Blood Urea Nitrogen 18 mg/dL (7-20) Creatinine 1.4 mg/dL (0.6-1.0) Estimated GFR (Cockcroft-Gault) 46.6 Glucose Level 177 mg/dL (70-99) Calcium Level 9.5 mg/dL (8.5-10.1) Magnesium Level 1.6 mg/dL (1.8-2.4) Total Bilirubin 0.7 mg/dL (0.2-1.0) Direct Bilirubin 0.1 mg/dL (0.0-0.2) Aspartate Amino Transf (AST/SGOT) 17 U/L (15-37) Alanine Aminotransferase (ALT/SGPT) 16 U/L (14-59) Alkaline Phosphatase 159 U/L (46-116) Creatine Kinase 103 U/L (26-192) Creatine Kinase MB (Mass) 1.2 ng/mL (0.0-3.6) Creatine Kinase MB Relative Index 1.2 % (0-4) Troponin I Quantitative 0.230 ng/mL (0.000-0.055) 0.225 ng/mL (0.000-0.055) ZF-Qsm-U-Type Natriuretic Peptide 67869 pg/mL (0-124) Total Protein 8.6 g/dL (6.4-8.2) Albumin 3.3 g/dL (3.4-5.0) Lipase 83 U/L (73-393) Thyroid Stimulating Hormone (TSH) 0.464 uIU/mL (0.358-3.74) O2 Saturation 93 % (92-99) Arterial Blood pH 7.43 (7.35-7.45) Arterial Blood pCO2 at Patient Temp 42 mmHg (35-46) Arterial Blood pO2 at Patient Temp 69 mmHg (65-108) Arterial Blood HCO3 27 mmol/L (21-28) Arterial Blood Base Excess 3 mmol/L (-3-3) FiO2 35 Urine Collection Type Unknown Urine Color Yellow Urine Clarity Clear Urine pH 5.5 Urine Specific Dola 1.020 Urine Protein >=300 mg/dL (NEG-TRACE) Urine Glucose (UA) 100 mg/dL (NEG) Urine Ketones (Stick) 15 mg/dL (NEG) Urine Blood Negative (NEG) Urine Nitrite Negative (NEG) Urine Bilirubin Negative (NEG) Urine Urobilinogen Dipstick 0.2 mg/dL (0.2 mg/dL) Urine Leukocyte Esterase Negative (NEG) Urine RBC Rare /HPF (0-2) Urine WBC 1-4 /HPF (0-4) Urine Squamous Epithelial Cells Many /LPF Urine Bacteria Moderate /HPF (0-FEW) Urine Hyaline Casts Many /HPF Urine Mucus Marked /LPF Urine Opiates Screen Neg (NEG) Urine Methadone Screen Neg (NEG) Urine Barbiturates Neg (NEG) Urine Phencyclidine Screen Neg (NEG) Urine Amphetamine/Methamphetamine Neg (NEG) Urine Benzodiazepines Screen Pos (NEG) Urine Cocaine Screen Pos (NEG) Urine Cannabinoids Screen Neg (NEG) Urine Ethyl Alcohol Neg (NEG) Test 02/20/17 18:06 02/20/17 20:44 02/20/17 21:25 02/21/17 03:05 Glucose (Fingerstick) 458 mg/dL (70-99) 467 mg/dL (70-99) Troponin I Quantitative 0.204 ng/mL (0.000-0.055) White Blood Count 8.9 x10^3/uL (4.0-11.0) Red Blood Count 3.30 x10^6/uL (3.50-5.40) Hemoglobin 8.6 g/dL (12.0-15.5) Hematocrit 27.3 % (36.0-47.0) Mean Corpuscular Volume 83 fL (79-100) Mean Corpuscular Hemoglobin 26 pg (25-35) Mean Corpuscular Hemoglobin Concent 32 g/dL (31-37) Red Cell Distribution Width 19.4 % (11.5-14.5) Platelet Count 292 x10^3/uL (140-400) Neutrophils (%) (Auto) 87 % (31-73) Lymphocytes (%) (Auto) 6 % (24-48) Monocytes (%) (Auto) 6 % (0-9) Eosinophils (%) (Auto) 0 % (0-3) Basophils (%) (Auto) 1 % (0-3) Neutrophils # (Auto) 7.7 x10^3uL (1.8-7.7) Lymphocytes # (Auto) 0.5 x10^3/uL (1.0-4.8) Monocytes # (Auto) 0.6 x10^3/uL (0.0-1.1) Eosinophils # (Auto) 0.0 x10^3/uL (0.0-0.7) Basophils # (Auto) 0.1 x10^3/uL (0.0-0.2) Sodium Level 138 mmol/L (136-145) Potassium Level 3.8 mmol/L (3.5-5.1) Chloride Level 101 mmol/L (98-107) Carbon Dioxide Level 32 mmol/L (21-32) Anion Gap 5 (6-14) Blood Urea Nitrogen 33 mg/dL (7-20) Creatinine 2.2 mg/dL (0.6-1.0) Estimated GFR (Cockcroft-Gault) 27.6 Glucose Level 404 mg/dL (70-99) Calcium Level 8.6 mg/dL (8.5-10.1) Test 02/21/17 08:48 02/21/17 12:10 02/21/17 12:45 Glucose (Fingerstick) 304 mg/dL (70-99) 158 mg/dL (70-99) 134 mg/dL (70-99) Laboratory Tests Test 02/20/17 14:00 02/20/17 15:20 02/20/17 18:06 02/20/17 20:44 Urine Collection Type Unknown Urine Color Yellow Urine Clarity Clear Urine pH 5.5 Urine Specific Dola 1.020 Urine Protein >=300 mg/dL (NEG-TRACE) Urine Glucose (UA) 100 mg/dL (NEG) Urine Ketones (Stick) 15 mg/dL (NEG) Urine Blood Negative (NEG) Urine Nitrite Negative (NEG) Urine Bilirubin Negative (NEG) Urine Urobilinogen Dipstick 0.2 mg/dL (0.2 mg/dL) Urine Leukocyte Esterase Negative (NEG) Urine RBC Rare /HPF (0-2) Urine WBC 1-4 /HPF (0-4) Urine Squamous Epithelial Cells Many /LPF Urine Bacteria Moderate /HPF (0-FEW) Urine Hyaline Casts Many /HPF Urine Mucus Marked /LPF Urine Opiates Screen Neg (NEG) Urine Methadone Screen Neg (NEG) Urine Barbiturates Neg (NEG) Urine Phencyclidine Screen Neg (NEG) Urine Amphetamine/Methamphetamine Neg (NEG) Urine Benzodiazepines Screen Pos (NEG) Urine Cocaine Screen Pos (NEG) Urine Cannabinoids Screen Neg (NEG) Urine Ethyl Alcohol Neg (NEG) Troponin I Quantitative 0.225 ng/mL (0.000-0.055) Glucose (Fingerstick) 458 mg/dL (70-99) 467 mg/dL (70-99) Test 02/20/17 21:25 02/21/17 03:05 02/21/17 08:48 02/21/17 12:10 Troponin I Quantitative 0.204 ng/mL (0.000-0.055) White Blood Count 8.9 x10^3/uL (4.0-11.0) Red Blood Count 3.30 x10^6/uL (3.50-5.40) Hemoglobin 8.6 g/dL (12.0-15.5) Hematocrit 27.3 % (36.0-47.0) Mean Corpuscular Volume 83 fL (79-100) Mean Corpuscular Hemoglobin 26 pg (25-35) Mean Corpuscular Hemoglobin Concent 32 g/dL (31-37) Red Cell Distribution Width 19.4 % (11.5-14.5) Platelet Count 292 x10^3/uL (140-400) Neutrophils (%) (Auto) 87 % (31-73) Lymphocytes (%) (Auto) 6 % (24-48) Monocytes (%) (Auto) 6 % (0-9) Eosinophils (%) (Auto) 0 % (0-3) Basophils (%) (Auto) 1 % (0-3) Neutrophils # (Auto) 7.7 x10^3uL (1.8-7.7) Lymphocytes # (Auto) 0.5 x10^3/uL (1.0-4.8) Monocytes # (Auto) 0.6 x10^3/uL (0.0-1.1) Eosinophils # (Auto) 0.0 x10^3/uL (0.0-0.7) Basophils # (Auto) 0.1 x10^3/uL (0.0-0.2) Sodium Level 138 mmol/L (136-145) Potassium Level 3.8 mmol/L (3.5-5.1) Chloride Level 101 mmol/L (98-107) Carbon Dioxide Level 32 mmol/L (21-32) Anion Gap 5 (6-14) Blood Urea Nitrogen 33 mg/dL (7-20) Creatinine 2.2 mg/dL (0.6-1.0) Estimated GFR (Cockcroft-Gault) 27.6 Glucose Level 404 mg/dL (70-99) Calcium Level 8.6 mg/dL (8.5-10.1) Glucose (Fingerstick) 304 mg/dL (70-99) 158 mg/dL (70-99) Test 02/21/17 12:45 Glucose (Fingerstick) 134 mg/dL (70-99) Medications Current Medications Nitroglycerin (Nitrostat) 0.4 mg PRN Q5MIN PRN SL CP RATING > 1/10 Last administered on 02/20/17 07:53; Start 02/20/17 at 07:30; Stop 02/21/17 at 07:29 ; Status DC Albuterol/ Ipratropium (Duoneb) 3 ml 1X ONCE NEB Last administered on 09:17; Start 02/20/17 at 08:00; Stop 02/20/17 at 08:01; Status DC Methylprednisolone Sodium Succinate (SOLU-Medrol 125MG VIAL) 125 mg 1X ONCE IV Last administered on 02/20/17 07:56; Start 02/20/17 at 08:00; Stop 02/20/17 at 08:01; Status DC Furosemide (Lasix) 40 mg 1X ONCE IVP Last administered on 02/20/17 08:30; Start 02/20/17 at 08:30; Stop 02/20/17 at 08:31; Status DC Ondansetron HCl (Zofran) 4 mg PRN Q8HRS PRN IV NAUSEA/VOMITING; Start 02/20/17 at 09:30; Stop 02/21/17 at 09:29; Status DC Potassium Chloride 100 ml @ 100 mls/hr PRN Q1HR PRN IV PER PROTOCOL; Start at 11:15; Status Cancel Potassium Chloride 100 ml @ 100 mls/hr PRN Q1HR PRN IV PER PROTOCOL; Start at 11:15; Status Cancel Potassium Chloride 100 ml @ 100 mls/hr PRN Q1HR PRN IV PER PROTOCOL; Start at 11:15; Status Cancel Magnesium Sulfate/ Dextrose 100 ml @ 25 mls/hr 1X ONCE IV Last administered on 02/20/17 12:13; Start 02/20/17 at 12:00; Stop 02/20/17 at 15:59; Status DC Potassium Chloride 100 ml @ 100 mls/hr Q1H IV ; Start 02/20/17 at 12:00; Stop 02/20/17 at 15:59; Status Cancel Hydralazine HCl (Apresoline) 10 mg PRN Q4HRS PRN IVP ELEVATED BP, SEE COMMENTS ; Start 02/20/17 at 11:30 Potassium Chloride (Klor-Con) 40 meq 1X ONCE PO ; Start 02/20/17 at 11:45; Stop 02/20/17 at 11:45; Status DC Potassium Chloride (Klor-Con) 40 meq Q2H PO ; Start 02/20/17 at 11:45; Stop 02/20/17 at 13:46; Status UNV Potassium Chloride (Klor-Con) 40 meq Q2H PO ; Start 02/20/17 at 11:45; Stop 02/20/17 at 15:46; Status UNV Potassium Chloride (Klor-Con) 40 meq 1X ONCE PO Last administered on 12:13; Start 02/20/17 at 11:45; Stop 02/20/17 at 11:46; Status DC Potassium Chloride (Klor-Con) 40 meq PRN Q2HRS PRN PO FOR K 2.6-3.0 MEQ/L; Start 02/20/17 at 11:45 Potassium Chloride (Klor-Con) 40 meq PRN Q2HRS PRN PO FOR K <2.6 MEQ/L; Start 02/20/17 at 11:45 Amlodipine Besylate (Norvasc) 10 mg DAILY PO Last administered on 02/21/17 08: 56; Start 02/20/17 at 18:00 Atorvastatin Calcium (Lipitor) 40 mg QHS PO Last administered on 02/20/17 20: 40; Start 02/20/17 at 21:00 Hydralazine HCl (Apresoline) 100 mg Q8HRS PO Last administered on 02/21/17 06: 11; Start 02/20/17 at 22:00 Oxycodone/ Acetaminophen (Percocet 10/325) 1 tab Q6HRS PO Last administered on 02/20/17 17:57; Start 02/20/17 at 18:00; Stop 02/20/17 at 18:11; Status DC Carvedilol (Coreg) 25 mg BIDWMEALS PO Last administered on 02/21/17 08:55; Start 02/20/17 at 18:00 Pantoprazole Sodium (Protonix) 40 mg DAILYAC PO Last administered on 02/21/17 08:09; Start 02/20/17 at 18:00 Albuterol/ Ipratropium (Duoneb) 3 ml RTQID NEB Last administered on 02/21/17 08:34; Start 02/20/17 at 18:00 Albuterol Sulfate (Ventolin Neb Soln) 2.5 mg PRN Q4HRS PRN NEB SHORTNESS OF BREATH; Start 02/20/17 at 17:45 Insulin Detemir (Levemir) 30 units QHS SQ Last administered on 02/20/17 20:46 ; Start 02/20/17 at 21:00 Insulin Aspart (NovoLOG) 0-9 UNITS TIDWMEALS SQ Last administered on 02/21/17 09:01; Start 02/20/17 at 18:00 Dextrose (Dextrose 50%-Water Syringe) 12.5 gm PRN Q15MIN PRN IV SEE COMMENTS; Start 02/20/17 at 17:45 Oxycodone/ Acetaminophen (Percocet 10/325) 1 tab PRN Q6HRS PRN PO PAIN Last administered on 02/21/17 08:10; Start 02/20/17 at 18:15 Clonidine HCl (Catapres) 0.2 mg BID PO Last administered on 02/21/17 08:56; Start 02/20/17 at 21:00 Diclofenac Sodium (Voltaren) 1 sohan BID TP Last administered on 02/20/17 20:46 ; Start 02/20/17 at 21:00 Ferrous Sulfate (Feosol) 325 mg QHS PO Last administered on 02/20/17 20:40; Start 02/20/17 at 21:00 Furosemide (Lasix) 40 mg DAILY PO Last administered on 02/21/17 08:56; Start 02/21/17 at 09:00 Insulin Aspart (NovoLOG) 10 units TIDAC SQ Last administered on 02/21/17 12:49 ; Start 02/21/17 at 07:30 Albuterol Sulfate (Ventolin Neb Soln) 2.5 mg PRN Q4HRS PRN NEB SHORTNESS OF BREATH; Start 02/20/17 at 19:45; Status Cancel Glipizide (Glucotrol) 10 mg BIDBFRMEAL PO Last administered on 02/21/17 08:56 ; Start 02/21/17 at 07:30 Non-Formulary Medication 36 unit HS SQ ; Start 02/20/17 at 21:00; Status UNV Acetaminophen/ Aspirin/Caffeine (Excedrin Migraine) 1 tab PRN Q6HRS PRN PO MIGRAINE HEADACHE; Start 02/20/17 at 19:45 Hydralazine HCl (Apresoline Inj) 10 mg PRN Q4HRS PRN IVP ELEVATED BP, SEE COMMENTS; Start 02/20/17 at 19:45; Status Cancel Ibuprofen (Motrin) 400 mg PRN Q6HRS PRN PO INFLAMMATION; Start 02/20/17 at 21: 30 Insulin Detemir (Levemir) 10 units 1X STAT SQ Last administered on 02/21/17 11:07; Start 02/21/17 at 09:29; Stop 02/21/17 at 09:32; Status DC Info (Do NOT chart on this placeholder) 1 each 1X ONCE MC ; Start 02/21/17 at 09:45; Stop 02/21/17 at 09:46; Status UNV Influenza Virus Vaccine Quadrival (Fluarix Quad [id number] Syringe) 0.5 ml ONCE ONCE VAX IM Last administered on 02/21/17t 11:05; Start 02/21/17 at 10:00; Stop 02/21/17 at 10:01; Status DC Active Scripts Active Feosol (Ferrous Sulfate) 325 Mg Tablet 325 Mg PO QHS Voltaren (Diclofenac Sodium) 100 Gm Gel..gram. 1 Sohan TP BID Doxycycline Hyclate 100 Mg Tablet 100 Mg PO BID Percocet 10-325 Mg Tablet (Oxycodone/Acetaminophen) 1 Each Tablet 1 Tab PO Q4- 6HRS Amlodipine Besylate 10 Mg Tablet 10 Mg PO DAILY Novolog Flexpen (Insulin Aspart) 100 Unit/1 Ml Insuln.pen 10 Units SQ TIDAC Hydralazine Hcl 50 Mg Tablet 100 Mg PO Q8HRS Furosemide 40 Mg Tablet 40 Mg PO DAILY Reported Wang Hummel (Insulin Glargine,Hum.rec.anlog) 300 Unit/1 Ml Insuln.pen 36 Unit SQ HS Atorvastatin Calcium 40 Mg Tablet 1 Tab PO DAILY Omeprazole 40 Mg Capsule.dr 1 Cap PO DAILY Ventolin Hfa Inhaler (Albuterol Sulfate) 18 Gm Hfa.aer.ad 2 Puff IH PRN Q4-6HRS Glipizide 10 Mg Tablet 1 Tab PO BIDAC Clonidine Hcl 0.2 Mg Tablet 1 Tab PO BID Coreg (Carvedilol) 25 Mg Tablet 1 Tab PO [id number] Vitals/I & O Vital Sign - Last 24 Hours 02/20/17 02/20/17 02/20/17 02/20/17 13:00 14:00 15:00 17:57 Pulse 96 96 90 90 Resp 26 22 24 B/P (MAP) 174/69 (104) 169/77 (107) 171/65 (100) 181/99 Pulse Ox 98 98 98 O2 Delivery Nasal Cannula Nasal Cannula Nasal Cannula 02/20/17 02/20/17 02/20/17 02/20/17 17:57 17:58 18:57 19:44 Pulse 90 Resp 20 B/P (MAP) 181/99 Pulse Ox 98 96 O2 Delivery Nasal Cannula Nasal Cannula Nasal Cannula O2 Flow Rate 3.0 2.5 02/20/17 02/20/17 02/20/17 02/20/17 20:00 20:00 20:41 20:42 Temp 98.9 98.9 Pulse 83 81 83 Resp 20 B/P (MAP) 132/68 (89) 132/68 132/68 Pulse Ox 94 O2 Delivery Nasal Cannula Nasal Cannula O2 Flow Rate 2.0 02/20/17 02/20/17 02/21/17 02/21/17 23:22 23:52 00:00 02:14 Pulse 70 Resp 20 20 B/P (MAP) 146/65 (92) Pulse Ox 95 96 93 O2 Delivery BiPAP/CPAP BiPAP/CPAP BiPAP/CPAP O2 Flow Rate 2.0 02/21/17 02/21/17 02/21/17 02/21/17 03:10 04:00 06:11 07:00 Temp 97.9 97.9 Pulse 73 73 70 Resp 20 22 B/P (MAP) 128/65 (86) 128/65 117/79 (92) Pulse Ox 94 94 96 O2 Delivery BiPAP/CPAP Nasal Cannula Nasal Cannula O2 Flow Rate 2.0 2.0 02/21/17 02/21/17 02/21/17 02/21/17 08:00 08:00 08:10 08:34 Pulse 74 Resp 16 B/P (MAP) 149/69 (95) Pulse Ox 96 97 O2 Delivery Nasal Cannula Nasal Cannula Nasal Cannula O2 Flow Rate 3.0 2.0 2.5 02/21/17 02/21/17 02/21/17 02/21/17 08:55 08:56 08:56 09:15 Pulse 74 74 74 Resp 22 B/P (MAP) 149/69 149/69 149/69 Pulse Ox 96 O2 Delivery Nasal Cannula O2 Flow Rate 3.0 ABIMAEL VALDIVIA MD Feb 21, 2017 13:03
[2017-02-21] MEDS: HEPARIN PF for SUB-Q USE 5,000 UNIT/0.5 ML VIAL. SQ SCH ×2 (14:18→22:00)
--- NOTE | 2017-02-21 15:09 | PDOC ---
PULMONARY PROGRESS NOTES Subjective PT FEELS BETTER Vitals Vital Signs Date Time Temp Pulse Resp B/P (MAP) Pulse Ox O2 Delivery O2 Flow Rate FiO2 02/21/17 14:19 19 95 Nasal Cannula 2.0 02/21/17 14:11 67 113/75 02/21/17 07:00 97.9 97.9 General: Alert, No acute distress HEENT: Other Lungs: Clear Cardiovascular: S1, S2 Abdomen: Soft, Non-tender Neuro Exam: Alert Extremities: No Edema Skin: Warm Labs Laboratory Tests Test 02/20/17 07:50 02/20/17 07:55 02/20/17 14:00 02/20/17 15:20 White Blood Count 16.8 x10^3/uL (4.0-11.0) Red Blood Count 3.75 x10^6/uL (3.50-5.40) Hemoglobin 9.6 g/dL (12.0-15.5) Hematocrit 30.6 % (36.0-47.0) Mean Corpuscular Volume 81 fL (79-100) Mean Corpuscular Hemoglobin 26 pg (25-35) Mean Corpuscular Hemoglobin Concent 32 g/dL (31-37) Red Cell Distribution Width 19.2 % (11.5-14.5) Platelet Count 342 x10^3/uL (140-400) Neutrophils (%) (Auto) 88 % (31-73) Lymphocytes (%) (Auto) 6 % (24-48) Monocytes (%) (Auto) 6 % (0-9) Eosinophils (%) (Auto) 0 % (0-3) Basophils (%) (Auto) 1 % (0-3) Neutrophils # (Auto) 14.7 x10^3uL (1.8-7.7) Lymphocytes # (Auto) 1.0 x10^3/uL (1.0-4.8) Monocytes # (Auto) 0.9 x10^3/uL (0.0-1.1) Eosinophils # (Auto) 0.0 x10^3/uL (0.0-0.7) Basophils # (Auto) 0.1 x10^3/uL (0.0-0.2) Segmented Neutrophils % 89 % (35-66) Lymphocytes % 5 % (24-48) Monocytes % 5 % (0-10) Basophils % 1 % (0-3) Platelet Estimate Adequate (ADEQUATE) Anisocytosis Slight Prothrombin Time 13.8 SEC (11.7-14.0) Prothromb Time International Ratio 1.1 (0.8-1.1) Sodium Level 143 mmol/L (136-145) Potassium Level 3.3 mmol/L (3.5-5.1) Chloride Level 101 mmol/L (98-107) Carbon Dioxide Level 30 mmol/L (21-32) Anion Gap 12 (6-14) Blood Urea Nitrogen 18 mg/dL (7-20) Creatinine 1.4 mg/dL (0.6-1.0) Estimated GFR (Cockcroft-Gault) 46.6 Glucose Level 177 mg/dL (70-99) Calcium Level 9.5 mg/dL (8.5-10.1) Magnesium Level 1.6 mg/dL (1.8-2.4) Total Bilirubin 0.7 mg/dL (0.2-1.0) Direct Bilirubin 0.1 mg/dL (0.0-0.2) Aspartate Amino Transf (AST/SGOT) 17 U/L (15-37) Alanine Aminotransferase (ALT/SGPT) 16 U/L (14-59) Alkaline Phosphatase 159 U/L (46-116) Creatine Kinase 103 U/L (26-192) Creatine Kinase MB (Mass) 1.2 ng/mL (0.0-3.6) Creatine Kinase MB Relative Index 1.2 % (0-4) Troponin I Quantitative 0.230 ng/mL (0.000-0.055) 0.225 ng/mL (0.000-0.055) EK-Gsh-N-Type Natriuretic Peptide 85705 pg/mL (0-124) Total Protein 8.6 g/dL (6.4-8.2) Albumin 3.3 g/dL (3.4-5.0) Lipase 83 U/L (73-393) Thyroid Stimulating Hormone (TSH) 0.464 uIU/mL (0.358-3.74) O2 Saturation 93 % (92-99) Arterial Blood pH 7.43 (7.35-7.45) Arterial Blood pCO2 at Patient Temp 42 mmHg (35-46) Arterial Blood pO2 at Patient Temp 69 mmHg (65-108) Arterial Blood HCO3 27 mmol/L (21-28) Arterial Blood Base Excess 3 mmol/L (-3-3) FiO2 35 Urine Collection Type Unknown Urine Color Yellow Urine Clarity Clear Urine pH 5.5 Urine Specific [place]prise 1.020 Urine Protein >=300 mg/dL (NEG-TRACE) Urine Glucose (UA) 100 mg/dL (NEG) Urine Ketones (Stick) 15 mg/dL (NEG) Urine Blood Negative (NEG) Urine Nitrite Negative (NEG) Urine Bilirubin Negative (NEG) Urine Urobilinogen Dipstick 0.2 mg/dL (0.2 mg/dL) Urine Leukocyte Esterase Negative (NEG) Urine RBC Rare /HPF (0-2) Urine WBC 1-4 /HPF (0-4) Urine Squamous Epithelial Cells Many /LPF Urine Bacteria Moderate /HPF (0-FEW) Urine Hyaline Casts Many /HPF Urine Mucus Marked /LPF Urine Opiates Screen Neg (NEG) Urine Methadone Screen Neg (NEG) Urine Barbiturates Neg (NEG) Urine Phencyclidine Screen Neg (NEG) Urine Amphetamine/Methamphetamine Neg (NEG) Urine Benzodiazepines Screen Pos (NEG) Urine Cocaine Screen Pos (NEG) Urine Cannabinoids Screen Neg (NEG) Urine Ethyl Alcohol Neg (NEG) Test 02/20/17 18:06 02/20/17 20:44 02/20/17 21:25 02/21/17 03:05 Glucose (Fingerstick) 458 mg/dL (70-99) 467 mg/dL (70-99) Troponin I Quantitative 0.204 ng/mL (0.000-0.055) White Blood Count 8.9 x10^3/uL (4.0-11.0) Red Blood Count 3.30 x10^6/uL (3.50-5.40) Hemoglobin 8.6 g/dL (12.0-15.5) Hematocrit 27.3 % (36.0-47.0) Mean Corpuscular Volume 83 fL (79-100) Mean Corpuscular Hemoglobin 26 pg (25-35) Mean Corpuscular Hemoglobin Concent 32 g/dL (31-37) Red Cell Distribution Width 19.4 % (11.5-14.5) Platelet Count 292 x10^3/uL (140-400) Neutrophils (%) (Auto) 87 % (31-73) Lymphocytes (%) (Auto) 6 % (24-48) Monocytes (%) (Auto) 6 % (0-9) Eosinophils (%) (Auto) 0 % (0-3) Basophils (%) (Auto) 1 % (0-3) Neutrophils # (Auto) 7.7 x10^3uL (1.8-7.7) Lymphocytes # (Auto) 0.5 x10^3/uL (1.0-4.8) Monocytes # (Auto) 0.6 x10^3/uL (0.0-1.1) Eosinophils # (Auto) 0.0 x10^3/uL (0.0-0.7) Basophils # (Auto) 0.1 x10^3/uL (0.0-0.2) Sodium Level 138 mmol/L (136-145) Potassium Level 3.8 mmol/L (3.5-5.1) Chloride Level 101 mmol/L (98-107) Carbon Dioxide Level 32 mmol/L (21-32) Anion Gap 5 (6-14) Blood Urea Nitrogen 33 mg/dL (7-20) Creatinine 2.2 mg/dL (0.6-1.0) Estimated GFR (Cockcroft-Gault) 27.6 Glucose Level 404 mg/dL (70-99) Calcium Level 8.6 mg/dL (8.5-10.1) Test 02/21/17 08:48 02/21/17 12:10 02/21/17 12:45 Glucose (Fingerstick) 304 mg/dL (70-99) 158 mg/dL (70-99) 134 mg/dL (70-99) Laboratory Tests Test 02/20/17 15:20 02/20/17 18:06 02/20/17 20:44 02/20/17 21:25 Troponin I Quantitative 0.225 ng/mL (0.000-0.055) 0.204 ng/mL (0.000-0.055) Glucose (Fingerstick) 458 mg/dL (70-99) 467 mg/dL (70-99) Test 02/21/17 03:05 02/21/17 08:48 02/21/17 12:10 02/21/17 12:45 White Blood Count 8.9 x10^3/uL (4.0-11.0) Red Blood Count 3.30 x10^6/uL (3.50-5.40) Hemoglobin 8.6 g/dL (12.0-15.5) Hematocrit 27.3 % (36.0-47.0) Mean Corpuscular Volume 83 fL (79-100) Mean Corpuscular Hemoglobin 26 pg (25-35) Mean Corpuscular Hemoglobin Concent 32 g/dL (31-37) Red Cell Distribution Width 19.4 % (11.5-14.5) Platelet Count 292 x10^3/uL (140-400) Neutrophils (%) (Auto) 87 % (31-73) Lymphocytes (%) (Auto) 6 % (24-48) Monocytes (%) (Auto) 6 % (0-9) Eosinophils (%) (Auto) 0 % (0-3) Basophils (%) (Auto) 1 % (0-3) Neutrophils # (Auto) 7.7 x10^3uL (1.8-7.7) Lymphocytes # (Auto) 0.5 x10^3/uL (1.0-4.8) Monocytes # (Auto) 0.6 x10^3/uL (0.0-1.1) Eosinophils # (Auto) 0.0 x10^3/uL (0.0-0.7) Basophils # (Auto) 0.1 x10^3/uL (0.0-0.2) Sodium Level 138 mmol/L (136-145) Potassium Level 3.8 mmol/L (3.5-5.1) Chloride Level 101 mmol/L (98-107) Carbon Dioxide Level 32 mmol/L (21-32) Anion Gap 5 (6-14) Blood Urea Nitrogen 33 mg/dL (7-20) Creatinine 2.2 mg/dL (0.6-1.0) Estimated GFR (Cockcroft-Gault) 27.6 Glucose Level 404 mg/dL (70-99) Calcium Level 8.6 mg/dL (8.5-10.1) Glucose (Fingerstick) 304 mg/dL (70-99) 158 mg/dL (70-99) 134 mg/dL (70-99) Medications Active Scripts Medications Dose Route/Sig Max Daily Dose Days Date Category Feosol (Ferrous Sulfate) 325 Mg Tablet 325 Mg PO QHS 12/15/16 Rx Voltaren (Diclofenac Sodium) 100 Gm Gel..gram. 1 Sohan TP BID 12/15/16 Rx Doxycycline Hyclate 100 Mg Tablet 100 Mg PO BID 12/04/16 Rx Percocet 10-325 Mg Tablet (Oxycodone/Acetaminophen) 1 Each Tablet 1 Tab PO Q4-6HRS 12/04/16 Rx Toujeo Solostar (Insulin Glargine,Hum.rec.anlog) 300 Unit/1 Ml Insuln.pen 36 Unit SQ HS 10/10/16 Reported Amlodipine Besylate 10 Mg Tablet 10 Mg PO DAILY 09/27/15 Rx Novolog Flexpen (Insulin Aspart) 100 Unit/1 Ml Insuln.pen 10 Units SQ TIDAC 05/27/15 Rx Hydralazine Hcl 50 Mg Tablet 100 Mg PO Q8HRS 05/27/15 Rx Furosemide 40 Mg Tablet 40 Mg PO DAILY 05/27/15 Rx Atorvastatin Calcium 40 Mg Tablet 1 Tab PO DAILY 05/23/15 Reported Omeprazole 40 Mg Capsule.dr 1 Cap PO DAILY 05/23/15 Reported Ventolin Hfa Inhaler (Albuterol Sulfate) 18 Gm Hfa.aer.ad 2 Puff IH PRN Q4-6HRS 05/23/15 Reported Glipizide 10 Mg Tablet 1 Tab PO BIDAC 06/10/14 Reported Clonidine Hcl 0.2 Mg Tablet 1 Tab PO BID 06/10/14 Reported Coreg (Carvedilol) 25 Mg Tablet 1 Tab PO [id number] 06/10/14 Reported Impression . 1. [id number] hypoxemic respiratory failure. 2. Acute systolic heart failure. 3. Uncontrolled hypertension. 4. Drug use. 5. Obstructive sleep apnea. 6. Morbid obesity. Plan . BETTER TODAY OK TO TRANSFER 1. Continue current p.r.n. BiPAP. 2. Diurese. 3. Consult Cardiology already performed. 4. No need for antibiotics. 5. The patient instructed on the importance of discontinuing all drug use including tobacco. DIMPLE ACOSTA MD Feb 21, 2017 15:09
[2017-02-21] MEDS: traMADol 50 MG TABLET PO PRN (18:30)
[2017-02-21] MEDS: ATORVASTATIN CALCIUM 40 MG TABLET. PO SCH (20:20)
[2017-02-21] MEDS: FERROUS SULFATE 325 MG TABLET. PO SCH (20:20)
[2017-02-21] MEDS: INSULIN DETEMIR 300 UNITS/3 ML INSULN.PEN. SQ SCH (21:00)
[2017-02-22] VITALS (7 sets, daily range): BP systolic 115–134; BP diastolic 49–89
[2017-02-22] MEDS: oxyCODONE/APAP 10/325 1 TAB TABLET PO PRN ×2 (03:40→19:14)
[2017-02-22 04:55] LABS: BASO # 0.1 x10^3/uL (0.0-0.2); BASO % 1 % (0-3); EOS % 1 % (0-3); HEMOGLOBIN 9.1 g/dL (12.0-15.5); LYMPH # 1.6 x10^3/uL (1.0-4.8); LYMPH % 16 % (24-48); MEAN CORPUSCULAR HEMOGLOBIN 27 pg (25-35); MEAN CORPUSCULAR HGB CONC 33 g/dL (31-37); MEAN CORPUSCULAR VOLUME 82 fL (79-100); MONO % 10 % (0-9); NEUT % 73 % (31-73); PLATELET COUNT 369 x10^3/uL (140-400); RED CELL DISTRIBUTION WIDTH 19.8 % (11.5-14.5); WHITE BLOOD COUNT 9.9 x10^3/uL (4.0-11.0)
[2017-02-22 05:56] LABS: CALCIUM 8.7 mg/dL (8.5-10.1); CREATININE 2.7 mg/dL (0.6-1.0); GFR 21.8; POTASSIUM 3.5 mmol/L (3.5-5.1)
[2017-02-22] MEDS: HEPARIN PF for SUB-Q USE 5,000 UNIT/0.5 ML VIAL. SQ SCH ×3 (06:37→21:23)
[2017-02-22] MEDS: INSULIN ASPART 300 UNITS/3 ML INSULN.PEN SQ SCH ×6 (07:30→17:00)
[2017-02-22] MEDS: glipiZIDE 5 MG TABLET PO SCH (07:30)
[2017-02-22] MEDS: IPRATRPIUM/ALBUTEROL 0.5/2.5MG 3 ML NEBU. NEB SCH ×4 (07:58→20:39)
[2017-02-22] MEDS: PANTOPRAZOLE 40 MG TABLET.DR. PO SCH (08:38)
[2017-02-22] MEDS: FUROSEMIDE 40 MG TABLET. PO SCH (08:39)
[2017-02-22] MEDS: amLODIPine BESYLATE 10 MG TABLET PO SCH (08:39)
[2017-02-22] MEDS: cloNIDine HCL 0.2 MG TABLET PO SCH ×2 (08:39→21:11)
[2017-02-22] MEDS ORDERED: ALBUTEROL SULFATE 2.5 MG/3 ML NEBU. NEB PRN (09:30)
[2017-02-22] MEDS: DICLOFENAC SODIUM 1% TOPICAL GEL 100GM TUBE. TP SCH ×2 (10:47→21:00)
[2017-02-22] MEDS: CARVEDILOL 12.5 MG TABLET. PO SCH ×2 (10:47→19:10)
[2017-02-22] MEDS: IV NORMAL SALINE 1000ML BAG 1,000 ML IV SCH ×2 (10:51→22:50)
[2017-02-22] MEDS: traMADol 50 MG TABLET PO PRN (10:52)
[2017-02-22] MEDS ORDERED: IPRATRPIUM/ALBUTEROL 0.5/2.5MG 3 ML NEBU. NEB SCH (12:00)
--- NOTE | 2017-02-22 13:07 | PDOC ---
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 add prednisone 40mg daily on lasix 40mg daily, monitor Cr, it is rising today, hold lasix, NS 1L ON levemir 30u qhs, aspart 10u tid, SSI. dc glipizide given hypoglcemia dvt ppx PTOT History of Present Illness History of Present Illness ROS: NO fever, chills, sob or chest pain sob much better, off bipap, on NC 2 L NEED BIPAP at home but not following pcp and no pulm uncompliance likely, altho saying takes home meds MARY cr up to 2.7 hypoglycemia Vitals Vitals Vital Signs Date Time Temp Pulse Resp B/P (MAP) Pulse Ox O2 Delivery O2 Flow Rate FiO2 02/22/17 11:52 Nasal Cannula 2.0 02/22/17 10:52 20 91 02/22/17 10:47 62 115/50 02/22/17 03:43 98.3 98.3 Physical Exam General: Alert, Oriented X3, Cooperative Heart: Regular rate, Normal S1, Normal S2 Lungs: Wheezing (bl basilar mild wheezing) Abdomen: Normal bowel sounds, Soft Extremities: No clubbing, No cyanosis Skin: No rashes Labs LABS Laboratory Tests Test 02/21/17 17:52 02/21/17 20:59 02/22/17 04:05 02/22/17 07:23 Glucose (Fingerstick) 138 mg/dL (70-99) 99 mg/dL (70-99) 31 mg/dL (70-99) White Blood Count 9.9 x10^3/uL (4.0-11.0) Red Blood Count 3.40 x10^6/uL (3.50-5.40) Hemoglobin 9.1 g/dL (12.0-15.5) Hematocrit 28.0 % (36.0-47.0) Mean Corpuscular Volume 82 fL (79-100) Mean Corpuscular Hemoglobin 27 pg (25-35) Mean Corpuscular Hemoglobin Concent 33 g/dL (31-37) Red Cell Distribution Width 19.8 % (11.5-14.5) Platelet Count 369 x10^3/uL (140-400) Neutrophils (%) (Auto) 73 % (31-73) Lymphocytes (%) (Auto) 16 % (24-48) Monocytes (%) (Auto) 10 % (0-9) Eosinophils (%) (Auto) 1 % (0-3) Basophils (%) (Auto) 1 % (0-3) Neutrophils # (Auto) 7.2 x10^3uL (1.8-7.7) Lymphocytes # (Auto) 1.6 x10^3/uL (1.0-4.8) Monocytes # (Auto) 1.0 x10^3/uL (0.0-1.1) Eosinophils # (Auto) 0.1 x10^3/uL (0.0-0.7) Basophils # (Auto) 0.1 x10^3/uL (0.0-0.2) Sodium Level 139 mmol/L (136-145) Potassium Level 3.5 mmol/L (3.5-5.1) Chloride Level 101 mmol/L (98-107) Carbon Dioxide Level 33 mmol/L (21-32) Anion Gap 5 (6-14) Blood Urea Nitrogen 46 mg/dL (7-20) Creatinine 2.7 mg/dL (0.6-1.0) Estimated GFR (Cockcroft-Gault) 21.8 Glucose Level 42 mg/dL (70-99) Calcium Level 8.7 mg/dL (8.5-10.1) Test 02/22/17 07:35 02/22/17 07:53 02/22/17 08:03 02/22/17 09:10 Glucose (Fingerstick) 33 mg/dL (70-99) 68 mg/dL (70-99) 78 mg/dL (70-99) 131 mg/dL (70-99) Test 02/22/17 12:22 Glucose (Fingerstick) 173 mg/dL (70-99) Comment Review of Relevant I have reviewed the following items jessee (where applicable) has been applied. Labs Laboratory Tests Test 02/20/17 14:00 02/20/17 15:20 02/20/17 18:06 02/20/17 20:44 Urine Collection Type Unknown Urine Color Yellow Urine Clarity Clear Urine pH 5.5 Urine Specific [place] 1.020 Urine Protein >=300 mg/dL (NEG-TRACE) Urine Glucose (UA) 100 mg/dL (NEG) Urine Ketones (Stick) 15 mg/dL (NEG) Urine Blood Negative (NEG) Urine Nitrite Negative (NEG) Urine Bilirubin Negative (NEG) Urine Urobilinogen Dipstick 0.2 mg/dL (0.2 mg/dL) Urine Leukocyte Esterase Negative (NEG) Urine RBC Rare /HPF (0-2) Urine WBC 1-4 /HPF (0-4) Urine Squamous Epithelial Cells Many /LPF Urine Bacteria Moderate /HPF (0-FEW) Urine Hyaline Casts Many /HPF Urine Mucus Marked /LPF Urine Opiates Screen Neg (NEG) Urine Methadone Screen Neg (NEG) Urine Barbiturates Neg (NEG) Urine Phencyclidine Screen Neg (NEG) Urine Amphetamine/Methamphetamine Neg (NEG) Urine Benzodiazepines Screen Pos (NEG) Urine Cocaine Screen Pos (NEG) Urine Cannabinoids Screen Neg (NEG) Urine Ethyl Alcohol Neg (NEG) Troponin I Quantitative 0.225 ng/mL (0.000-0.055) Glucose (Fingerstick) 458 mg/dL (70-99) 467 mg/dL (70-99) Test 02/20/17 21:25 02/21/17 03:05 02/21/17 08:48 02/21/17 12:10 Troponin I Quantitative 0.204 ng/mL (0.000-0.055) White Blood Count 8.9 x10^3/uL (4.0-11.0) Red Blood Count 3.30 x10^6/uL (3.50-5.40) Hemoglobin 8.6 g/dL (12.0-15.5) Hematocrit 27.3 % (36.0-47.0) Mean Corpuscular Volume 83 fL (79-100) Mean Corpuscular Hemoglobin 26 pg (25-35) Mean Corpuscular Hemoglobin Concent 32 g/dL (31-37) Red Cell Distribution Width 19.4 % (11.5-14.5) Platelet Count 292 x10^3/uL (140-400) Neutrophils (%) (Auto) 87 % (31-73) Lymphocytes (%) (Auto) 6 % (24-48) Monocytes (%) (Auto) 6 % (0-9) Eosinophils (%) (Auto) 0 % (0-3) Basophils (%) (Auto) 1 % (0-3) Neutrophils # (Auto) 7.7 x10^3uL (1.8-7.7) Lymphocytes # (Auto) 0.5 x10^3/uL (1.0-4.8) Monocytes # (Auto) 0.6 x10^3/uL (0.0-1.1) Eosinophils # (Auto) 0.0 x10^3/uL (0.0-0.7) Basophils # (Auto) 0.1 x10^3/uL (0.0-0.2) Sodium Level 138 mmol/L (136-145) Potassium Level 3.8 mmol/L (3.5-5.1) Chloride Level 101 mmol/L (98-107) Carbon Dioxide Level 32 mmol/L (21-32) Anion Gap 5 (6-14) Blood Urea Nitrogen 33 mg/dL (7-20) Creatinine 2.2 mg/dL (0.6-1.0) Estimated GFR (Cockcroft-Gault) 27.6 Glucose Level 404 mg/dL (70-99) Calcium Level 8.6 mg/dL (8.5-10.1) Glucose (Fingerstick) 304 mg/dL (70-99) 158 mg/dL (70-99) Test 02/21/17 12:45 02/21/17 17:52 02/21/17 20:59 02/22/17 04:05 Glucose (Fingerstick) 134 mg/dL (70-99) 138 mg/dL (70-99) 99 mg/dL (70-99) White Blood Count 9.9 x10^3/uL (4.0-11.0) Red Blood Count 3.40 x10^6/uL (3.50-5.40) Hemoglobin 9.1 g/dL (12.0-15.5) Hematocrit 28.0 % (36.0-47.0) Mean Corpuscular Volume 82 fL (79-100) Mean Corpuscular Hemoglobin 27 pg (25-35) Mean Corpuscular Hemoglobin Concent 33 g/dL (31-37) Red Cell Distribution Width 19.8 % (11.5-14.5) Platelet Count 369 x10^3/uL (140-400) Neutrophils (%) (Auto) 73 % (31-73) Lymphocytes (%) (Auto) 16 % (24-48) Monocytes (%) (Auto) 10 % (0-9) Eosinophils (%) (Auto) 1 % (0-3) Basophils (%) (Auto) 1 % (0-3) Neutrophils # (Auto) 7.2 x10^3uL (1.8-7.7) Lymphocytes # (Auto) 1.6 x10^3/uL (1.0-4.8) Monocytes # (Auto) 1.0 x10^3/uL (0.0-1.1) Eosinophils # (Auto) 0.1 x10^3/uL (0.0-0.7) Basophils # (Auto) 0.1 x10^3/uL (0.0-0.2) Sodium Level 139 mmol/L (136-145) Potassium Level 3.5 mmol/L (3.5-5.1) Chloride Level 101 mmol/L (98-107) Carbon Dioxide Level 33 mmol/L (21-32) Anion Gap 5 (6-14) Blood Urea Nitrogen 46 mg/dL (7-20) Creatinine 2.7 mg/dL (0.6-1.0) Estimated GFR (Cockcroft-Gault) 21.8 Glucose Level 42 mg/dL (70-99) Calcium Level 8.7 mg/dL (8.5-10.1) Test 02/22/17 07:23 02/22/17 07:35 02/22/17 07:53 02/22/17 08:03 Glucose (Fingerstick) 31 mg/dL (70-99) 33 mg/dL (70-99) 68 mg/dL (70-99) 78 mg/dL (70-99) Test 02/22/17 09:10 02/22/17 12:22 Glucose (Fingerstick) 131 mg/dL (70-99) 173 mg/dL (70-99) Laboratory Tests Test 02/21/17 17:52 02/21/17 20:59 02/22/17 04:05 02/22/17 07:23 Glucose (Fingerstick) 138 mg/dL (70-99) 99 mg/dL (70-99) 31 mg/dL (70-99) White Blood Count 9.9 x10^3/uL (4.0-11.0) Red Blood Count 3.40 x10^6/uL (3.50-5.40) Hemoglobin 9.1 g/dL (12.0-15.5) Hematocrit 28.0 % (36.0-47.0) Mean Corpuscular Volume 82 fL (79-100) Mean Corpuscular Hemoglobin 27 pg (25-35) Mean Corpuscular Hemoglobin Concent 33 g/dL (31-37) Red Cell Distribution Width 19.8 % (11.5-14.5) Platelet Count 369 x10^3/uL (140-400) Neutrophils (%) (Auto) 73 % (31-73) Lymphocytes (%) (Auto) 16 % (24-48) Monocytes (%) (Auto) 10 % (0-9) Eosinophils (%) (Auto) 1 % (0-3) Basophils (%) (Auto) 1 % (0-3) Neutrophils # (Auto) 7.2 x10^3uL (1.8-7.7) Lymphocytes # (Auto) 1.6 x10^3/uL (1.0-4.8) Monocytes # (Auto) 1.0 x10^3/uL (0.0-1.1) Eosinophils # (Auto) 0.1 x10^3/uL (0.0-0.7) Basophils # (Auto) 0.1 x10^3/uL (0.0-0.2) Sodium Level 139 mmol/L (136-145) Potassium Level 3.5 mmol/L (3.5-5.1) Chloride Level 101 mmol/L (98-107) Carbon Dioxide Level 33 mmol/L (21-32) Anion Gap 5 (6-14) Blood Urea Nitrogen 46 mg/dL (7-20) Creatinine 2.7 mg/dL (0.6-1.0) Estimated GFR (Cockcroft-Gault) 21.8 Glucose Level 42 mg/dL (70-99) Calcium Level 8.7 mg/dL (8.5-10.1) Test 02/22/17 07:35 02/22/17 07:53 02/22/17 08:03 02/22/17 09:10 Glucose (Fingerstick) 33 mg/dL (70-99) 68 mg/dL (70-99) 78 mg/dL (70-99) 131 mg/dL (70-99) Test 02/22/17 12:22 Glucose (Fingerstick) 173 mg/dL (70-99) Microbiology 02/20/17 Urine Culture - Preliminary, Resulted 02/20/17 Urine Culture Result 1 ([id number]) - Preliminary, Resulted Medications Current Medications Nitroglycerin (Nitrostat) 0.4 mg PRN Q5MIN PRN SL CP RATING > 1/10 Last administered on 02/20/17 07:53; Start 02/20/17 at 07:30; Stop 02/21/17 at 07:29 ; Status DC Albuterol/ Ipratropium (Duoneb) 3 ml 1X ONCE NEB Last administered on 09:17; Start 02/20/17 at 08:00; Stop 02/20/17 at 08:01; Status DC Methylprednisolone Sodium Succinate (SOLU-Medrol 125MG VIAL) 125 mg 1X ONCE IV Last administered on 02/20/17 07:56; Start 02/20/17 at 08:00; Stop 02/20/17 at 08:01; Status DC Furosemide (Lasix) 40 mg 1X ONCE IVP Last administered on 02/20/17 08:30; Start 02/20/17 at 08:30; Stop 02/20/17 at 08:31; Status DC Ondansetron HCl (Zofran) 4 mg PRN Q8HRS PRN IV NAUSEA/VOMITING; Start 02/20/17 at 09:30; Stop 02/21/17 at 09:29; Status DC Potassium Chloride 100 ml @ 100 mls/hr PRN Q1HR PRN IV PER PROTOCOL; Start at 11:15; Status Cancel Potassium Chloride 100 ml @ 100 mls/hr PRN Q1HR PRN IV PER PROTOCOL; Start at 11:15; Status Cancel Potassium Chloride 100 ml @ 100 mls/hr PRN Q1HR PRN IV PER PROTOCOL; Start at 11:15; Status Cancel Magnesium Sulfate/ Dextrose 100 ml @ 25 mls/hr 1X ONCE IV Last administered on 02/20/17 12:13; Start 02/20/17 at 12:00; Stop 02/20/17 at 15:59; Status DC Potassium Chloride 100 ml @ 100 mls/hr Q1H IV ; Start 02/20/17 at 12:00; Stop 02/20/17 at 15:59; Status Cancel Hydralazine HCl (Apresoline) 10 mg PRN Q4HRS PRN IVP ELEVATED BP, SEE COMMENTS ; Start 02/20/17 at 11:30; Stop 02/22/17 at 09:29; Status DC Potassium Chloride (Klor-Con) 40 meq 1X ONCE PO ; Start 02/20/17 at 11:45; Stop 02/20/17 at 11:45; Status DC Potassium Chloride (Klor-Con) 40 meq Q2H PO ; Start 02/20/17 at 11:45; Stop 02/20/17 at 13:46; Status UNV Potassium Chloride (Klor-Con) 40 meq Q2H PO ; Start 02/20/17 at 11:45; Stop 02/20/17 at 15:46; Status UNV Potassium Chloride (Klor-Con) 40 meq 1X ONCE PO Last administered on 12:13; Start 02/20/17 at 11:45; Stop 02/20/17 at 11:46; Status DC Potassium Chloride (Klor-Con) 40 meq PRN Q2HRS PRN PO FOR K 2.6-3.0 MEQ/L; Start 02/20/17 at 11:45 Potassium Chloride (Klor-Con) 40 meq PRN Q2HRS PRN PO FOR K <2.6 MEQ/L; Start 02/20/17 at 11:45 Amlodipine Besylate (Norvasc) 10 mg DAILY PO Last administered on 02/22/17 08 :39; Start 02/20/17 at 18:00 Atorvastatin Calcium (Lipitor) 40 mg QHS PO Last administered on 02/21/17 20: 20; Start 02/20/17 at 21:00 Hydralazine HCl (Apresoline) 100 mg Q8HRS PO Last administered on 02/22/17 06 :36; Start 02/20/17 at 22:00 Oxycodone/ Acetaminophen (Percocet 10/325) 1 tab Q6HRS PO Last administered on 02/20/17 17:57; Start 02/20/17 at 18:00; Stop 02/20/17 at 18:11; Status DC Carvedilol (Coreg) 25 mg BIDWMEALS PO Last administered on 02/22/17 10:47; Start 02/20/17 at 18:00 Pantoprazole Sodium (Protonix) 40 mg DAILYAC PO Last administered on 08:38; Start 02/20/17 at 18:00 Albuterol/ Ipratropium (Duoneb) 3 ml RTQID NEB Last administered on 02/22/17 11:50; Start 02/20/17 at 18:00 Albuterol Sulfate (Ventolin Neb Soln) 2.5 mg PRN Q4HRS PRN NEB SHORTNESS OF BREATH; Start 02/20/17 at 17:45 Insulin Detemir (Levemir) 30 units QHS SQ Last administered on 02/21/17 21:00 ; Start 02/20/17 at 21:00 Insulin Aspart (NovoLOG) 0-9 UNITS TIDWMEALS SQ Last administered on 12:27; Start 02/20/17 at 18:00 Dextrose (Dextrose 50%-Water Syringe) 12.5 gm PRN Q15MIN PRN IV SEE COMMENTS; Start 02/20/17 at 17:45 Oxycodone/ Acetaminophen (Percocet 10/325) 1 tab PRN Q6HRS PRN PO PAIN Last administered on 02/22/17 03:40; Start 02/20/17 at 18:15 Clonidine HCl (Catapres) 0.2 mg BID PO Last administered on 02/22/17 08:39; Start 02/20/17 at 21:00 Diclofenac Sodium (Voltaren) 1 sohan BID TP Last administered on 02/22/17 10:47 ; Start 02/20/17 at 21:00 Ferrous Sulfate (Feosol) 325 mg QHS PO Last administered on 02/21/17 20:20; Start 02/20/17 at 21:00 Furosemide (Lasix) 40 mg DAILY PO Last administered on 02/21/17 08:56; Start 02/21/17 at 09:00; Stop 02/22/17 at 09:29; Status DC Insulin Aspart (NovoLOG) 10 units TIDAC SQ Last administered on 02/22/17 12: 27; Start 02/21/17 at 07:30 Albuterol Sulfate (Ventolin Neb Soln) 2.5 mg PRN Q4HRS PRN NEB SHORTNESS OF BREATH; Start 02/20/17 at 19:45; Status Cancel Glipizide (Glucotrol) 10 mg BIDBFRMEAL PO Last administered on 02/21/17 17:54 ; Start 02/21/17 at 07:30; Stop 02/22/17 at 08:05; Status DC Non-Formulary Medication 36 unit HS SQ ; Start 02/20/17 at 21:00; Status UNV Acetaminophen/ Aspirin/Caffeine (Excedrin Migraine) 1 tab PRN Q6HRS PRN PO MIGRAINE HEADACHE; Start 02/20/17 at 19:45 Hydralazine HCl (Apresoline Inj) 10 mg PRN Q4HRS PRN IVP ELEVATED BP, SEE COMMENTS; Start 02/20/17 at 19:45; Status Cancel Ibuprofen (Motrin) 400 mg PRN Q6HRS PRN PO INFLAMMATION; Start 02/20/17 at 21: 30 Insulin Detemir (Levemir) 10 units 1X STAT SQ Last administered on 02/21/17 11:07; Start 02/21/17 at 09:29; Stop 02/21/17 at 09:32; Status DC Info (Do NOT chart on this placeholder) 1 each 1X ONCE MC ; Start 02/21/17 at 09:45; Stop 02/21/17 at 09:46; Status UNV Influenza Virus Vaccine Quadrival (Fluarix Quad [id number] Syringe) 0.5 ml ONCE ONCE VAX IM Last administered on 02/21/17 11:05; Start 02/21/17 at 10:00; Stop 02/21/17 at 10:01; Status DC Acetaminophen (Tylenol) 650 mg PRN Q6HRS PRN PO FEVER; Start 02/21/17 at 13:00 Ondansetron HCl (Zofran) 4 mg PRN Q6HRS PRN IV NAUSEA/VOMITING; Start 02/21/17 at 13:00 Morphine Sulfate 2 mg PRN Q2HR PRN IV PAIN; Start 02/21/17 at 13:00 Tramadol HCl (Ultram) 50 mg PRN Q6HRS PRN PO PAIN Last administered on 10:52; Start 02/21/17 at 13:00 Hydralazine HCl (Apresoline Inj) 10 mg PRN Q4HRS PRN IVP ELEVATED BP, SEE COMMENTS; Start 02/21/17 at 13:00 Docusate Sodium (Colace) 100 mg PRN DAILY PRN PO CONSTIPATION; Start 02/21/17 at 13:00 Heparin Sodium (Porcine) (Heparin Sq) 5,000 unit Q8HRS SQ Last administered on 02/22/17 06:37; Start 02/21/17 at 14:00 Albuterol/ Ipratropium (Duoneb) 3 ml RTQID NEB ; Start 02/22/17 at 12:00 Albuterol Sulfate (Ventolin Neb Soln) 2.5 mg PRN Q2HR PRN NEB SHORTNESS OF BREATH; Start 02/22/17 at 09:30 Guaifenesin (Mucinex) 600 mg BID PO ; Start 02/22/17 at 21:00 Sodium Chloride 1,000 ml @ 75 mls/hr [id number] IV Last administered on 10:51; Start 02/22/17 at 09:30 Active Scripts Active Feosol (Ferrous Sulfate) 325 Mg Tablet 325 Mg PO QHS Voltaren (Diclofenac Sodium) 100 Gm Gel..gram. 1 Sohan TP BID Doxycycline Hyclate 100 Mg Tablet 100 Mg PO BID Percocet 10-325 Mg Tablet (Oxycodone/Acetaminophen) 1 Each Tablet 1 Tab PO Q4- 6HRS Amlodipine Besylate 10 Mg Tablet 10 Mg PO DAILY Novolog Flexpen (Insulin Aspart) 100 Unit/1 Ml Insuln.pen 10 Units SQ TIDAC Hydralazine Hcl 50 Mg Tablet 100 Mg PO Q8HRS Furosemide 40 Mg Tablet 40 Mg PO DAILY Reported Wang Hummel (Insulin Glargine,Hum.rec.anlog) 300 Unit/1 Ml Insuln.pen 36 Unit SQ HS Atorvastatin Calcium 40 Mg Tablet 1 Tab PO DAILY Omeprazole 40 Mg Capsule.dr 1 Cap PO DAILY Ventolin Hfa Inhaler (Albuterol Sulfate) 18 Gm Hfa.aer.ad 2 Puff IH PRN Q4-6HRS Glipizide 10 Mg Tablet 1 Tab PO BIDAC Clonidine Hcl 0.2 Mg Tablet 1 Tab PO BID Coreg (Carvedilol) 25 Mg Tablet 1 Tab PO [id number] Vitals/I & O Vital Sign - Last 24 Hours 02/21/17 02/21/17 02/21/17 02/21/17 14:11 14:19 16:19 17:00 Pulse 67 64 Resp 19 20 B/P (MAP) 113/75 128/56 (80) Pulse Ox 95 95 91 O2 Delivery Nasal Cannula Nasal Cannula Room Air O2 Flow Rate 2.0 2.0 02/21/17 02/21/17 02/21/17 02/21/17 17:54 18:30 19:15 19:30 Temp 98.1 98.1 Pulse 66 65 Resp 24 22 22 B/P (MAP) 126/59 118/56 (76) Pulse Ox 93 95 95 O2 Delivery Nasal Cannula Room Air Room Air O2 Flow Rate 2.0 02/21/17 02/21/17 02/21/17 02/21/17 19:30 19:39 20:19 20:20 Pulse 65 Resp 22 B/P (MAP) 118/56 Pulse Ox 90 95 O2 Delivery Nasal Cannula Room Air Room Air O2 Flow Rate 2.0 02/21/17 02/21/17 02/22/17 02/22/17 22:01 23:53 03:40 03:43 Temp 98.4 98.3 98.4 98.3 Pulse 59 60 65 Resp 22 20 20 B/P (MAP) 102/58 102/58 (73) 123/69 (87) Pulse Ox 100 98 98 O2 Delivery Nasal Cannula Nasal Cannula Nasal Cannula O2 Flow Rate 2.0 2.0 2.0 02/22/17 02/22/17 02/22/17 02/22/17 04:40 06:36 07:58 08:39 Pulse 65 63 Resp 22 B/P (MAP) 123/69 116/60 Pulse Ox 98 100 O2 Delivery Nasal Cannula Nasal Cannula O2 Flow Rate 2.0 2.0 02/22/17 02/22/17 02/22/17 02/22/17 08:39 10:47 10:52 11:52 Pulse 66 62 Resp 20 B/P (MAP) 116/60 115/50 Pulse Ox 91 O2 Delivery Nasal Cannula Nasal Cannula O2 Flow Rate 2.0 2.0 ABIMAEL VALDIVIA MD Feb 22, 2017 13:07
--- NOTE | 2017-02-22 13:54 | PDOC ---
PULMONARY PROGRESS NOTES Subjective PT FEELS BETTER Vitals Vital Signs Date Time Temp Pulse Resp B/P (MAP) Pulse Ox O2 Delivery O2 Flow Rate FiO2 02/22/17 11:52 Nasal Cannula 2.0 02/22/17 10:52 20 91 02/22/17 10:47 62 115/50 02/22/17 03:43 98.3 98.3 General: Alert, No acute distress HEENT: Other Lungs: Wheezing (bl basilar mild wheezing) Cardiovascular: S1, S2 Abdomen: Soft, Non-tender Neuro Exam: Alert Extremities: No Edema Skin: Warm Labs Laboratory Tests Test 02/20/17 14:00 02/20/17 15:20 02/20/17 18:06 02/20/17 20:44 Urine Collection Type Unknown Urine Color Yellow Urine Clarity Clear Urine pH 5.5 Urine Specific [place] 1.020 Urine Protein >=300 mg/dL (NEG-TRACE) Urine Glucose (UA) 100 mg/dL (NEG) Urine Ketones (Stick) 15 mg/dL (NEG) Urine Blood Negative (NEG) Urine Nitrite Negative (NEG) Urine Bilirubin Negative (NEG) Urine Urobilinogen Dipstick 0.2 mg/dL (0.2 mg/dL) Urine Leukocyte Esterase Negative (NEG) Urine RBC Rare /HPF (0-2) Urine WBC 1-4 /HPF (0-4) Urine Squamous Epithelial Cells Many /LPF Urine Bacteria Moderate /HPF (0-FEW) Urine Hyaline Casts Many /HPF Urine Mucus Marked /LPF Urine Opiates Screen Neg (NEG) Urine Methadone Screen Neg (NEG) Urine Barbiturates Neg (NEG) Urine Phencyclidine Screen Neg (NEG) Urine Amphetamine/Methamphetamine Neg (NEG) Urine Benzodiazepines Screen Pos (NEG) Urine Cocaine Screen Pos (NEG) Urine Cannabinoids Screen Neg (NEG) Urine Ethyl Alcohol Neg (NEG) Troponin I Quantitative 0.225 ng/mL (0.000-0.055) Glucose (Fingerstick) 458 mg/dL (70-99) 467 mg/dL (70-99) Test 02/20/17 21:25 02/21/17 03:05 02/21/17 08:48 02/21/17 12:10 Troponin I Quantitative 0.204 ng/mL (0.000-0.055) White Blood Count 8.9 x10^3/uL (4.0-11.0) Red Blood Count 3.30 x10^6/uL (3.50-5.40) Hemoglobin 8.6 g/dL (12.0-15.5) Hematocrit 27.3 % (36.0-47.0) Mean Corpuscular Volume 83 fL (79-100) Mean Corpuscular Hemoglobin 26 pg (25-35) Mean Corpuscular Hemoglobin Concent 32 g/dL (31-37) Red Cell Distribution Width 19.4 % (11.5-14.5) Platelet Count 292 x10^3/uL (140-400) Neutrophils (%) (Auto) 87 % (31-73) Lymphocytes (%) (Auto) 6 % (24-48) Monocytes (%) (Auto) 6 % (0-9) Eosinophils (%) (Auto) 0 % (0-3) Basophils (%) (Auto) 1 % (0-3) Neutrophils # (Auto) 7.7 x10^3uL (1.8-7.7) Lymphocytes # (Auto) 0.5 x10^3/uL (1.0-4.8) Monocytes # (Auto) 0.6 x10^3/uL (0.0-1.1) Eosinophils # (Auto) 0.0 x10^3/uL (0.0-0.7) Basophils # (Auto) 0.1 x10^3/uL (0.0-0.2) Sodium Level 138 mmol/L (136-145) Potassium Level 3.8 mmol/L (3.5-5.1) Chloride Level 101 mmol/L (98-107) Carbon Dioxide Level 32 mmol/L (21-32) Anion Gap 5 (6-14) Blood Urea Nitrogen 33 mg/dL (7-20) Creatinine 2.2 mg/dL (0.6-1.0) Estimated GFR (Cockcroft-Gault) 27.6 Glucose Level 404 mg/dL (70-99) Calcium Level 8.6 mg/dL (8.5-10.1) Glucose (Fingerstick) 304 mg/dL (70-99) 158 mg/dL (70-99) Test 02/21/17 12:45 02/21/17 17:52 02/21/17 20:59 02/22/17 04:05 Glucose (Fingerstick) 134 mg/dL (70-99) 138 mg/dL (70-99) 99 mg/dL (70-99) White Blood Count 9.9 x10^3/uL (4.0-11.0) Red Blood Count 3.40 x10^6/uL (3.50-5.40) Hemoglobin 9.1 g/dL (12.0-15.5) Hematocrit 28.0 % (36.0-47.0) Mean Corpuscular Volume 82 fL (79-100) Mean Corpuscular Hemoglobin 27 pg (25-35) Mean Corpuscular Hemoglobin Concent 33 g/dL (31-37) Red Cell Distribution Width 19.8 % (11.5-14.5) Platelet Count 369 x10^3/uL (140-400) Neutrophils (%) (Auto) 73 % (31-73) Lymphocytes (%) (Auto) 16 % (24-48) Monocytes (%) (Auto) 10 % (0-9) Eosinophils (%) (Auto) 1 % (0-3) Basophils (%) (Auto) 1 % (0-3) Neutrophils # (Auto) 7.2 x10^3uL (1.8-7.7) Lymphocytes # (Auto) 1.6 x10^3/uL (1.0-4.8) Monocytes # (Auto) 1.0 x10^3/uL (0.0-1.1) Eosinophils # (Auto) 0.1 x10^3/uL (0.0-0.7) Basophils # (Auto) 0.1 x10^3/uL (0.0-0.2) Sodium Level 139 mmol/L (136-145) Potassium Level 3.5 mmol/L (3.5-5.1) Chloride Level 101 mmol/L (98-107) Carbon Dioxide Level 33 mmol/L (21-32) Anion Gap 5 (6-14) Blood Urea Nitrogen 46 mg/dL (7-20) Creatinine 2.7 mg/dL (0.6-1.0) Estimated GFR (Cockcroft-Gault) 21.8 Glucose Level 42 mg/dL (70-99) Calcium Level 8.7 mg/dL (8.5-10.1) Test 02/22/17 07:23 02/22/17 07:35 02/22/17 07:53 02/22/17 08:03 Glucose (Fingerstick) 31 mg/dL (70-99) 33 mg/dL (70-99) 68 mg/dL (70-99) 78 mg/dL (70-99) Test 02/22/17 09:10 02/22/17 12:22 Glucose (Fingerstick) 131 mg/dL (70-99) 173 mg/dL (70-99) Laboratory Tests Test 02/21/17 17:52 02/21/17 20:59 02/22/17 04:05 02/22/17 07:23 Glucose (Fingerstick) 138 mg/dL (70-99) 99 mg/dL (70-99) 31 mg/dL (70-99) White Blood Count 9.9 x10^3/uL (4.0-11.0) Red Blood Count 3.40 x10^6/uL (3.50-5.40) Hemoglobin 9.1 g/dL (12.0-15.5) Hematocrit 28.0 % (36.0-47.0) Mean Corpuscular Volume 82 fL (79-100) Mean Corpuscular Hemoglobin 27 pg (25-35) Mean Corpuscular Hemoglobin Concent 33 g/dL (31-37) Red Cell Distribution Width 19.8 % (11.5-14.5) Platelet Count 369 x10^3/uL (140-400) Neutrophils (%) (Auto) 73 % (31-73) Lymphocytes (%) (Auto) 16 % (24-48) Monocytes (%) (Auto) 10 % (0-9) Eosinophils (%) (Auto) 1 % (0-3) Basophils (%) (Auto) 1 % (0-3) Neutrophils # (Auto) 7.2 x10^3uL (1.8-7.7) Lymphocytes # (Auto) 1.6 x10^3/uL (1.0-4.8) Monocytes # (Auto) 1.0 x10^3/uL (0.0-1.1) Eosinophils # (Auto) 0.1 x10^3/uL (0.0-0.7) Basophils # (Auto) 0.1 x10^3/uL (0.0-0.2) Sodium Level 139 mmol/L (136-145) Potassium Level 3.5 mmol/L (3.5-5.1) Chloride Level 101 mmol/L (98-107) Carbon Dioxide Level 33 mmol/L (21-32) Anion Gap 5 (6-14) Blood Urea Nitrogen 46 mg/dL (7-20) Creatinine 2.7 mg/dL (0.6-1.0) Estimated GFR (Cockcroft-Gault) 21.8 Glucose Level 42 mg/dL (70-99) Calcium Level 8.7 mg/dL (8.5-10.1) Test 02/22/17 07:35 02/22/17 07:53 02/22/17 08:03 02/22/17 09:10 Glucose (Fingerstick) 33 mg/dL (70-99) 68 mg/dL (70-99) 78 mg/dL (70-99) 131 mg/dL (70-99) Test 02/22/17 12:22 Glucose (Fingerstick) 173 mg/dL (70-99) Medications Active Scripts Medications Dose Route/Sig Max Daily Dose Days Date Category Feosol (Ferrous Sulfate) 325 Mg Tablet 325 Mg PO QHS 12/15/16 Rx Voltaren (Diclofenac Sodium) 100 Gm Gel..gram. 1 Sohan TP BID 12/15/16 Rx Doxycycline Hyclate 100 Mg Tablet 100 Mg PO BID 12/04/16 Rx Percocet 10-325 Mg Tablet (Oxycodone/Acetaminophen) 1 Each Tablet 1 Tab PO Q4-6HRS 12/04/16 Rx Toujeo Solostar (Insulin Glargine,Hum.rec.anlog) 300 Unit/1 Ml Insuln.pen 36 Unit SQ HS 10/10/16 Reported Amlodipine Besylate 10 Mg Tablet 10 Mg PO DAILY 09/27/15 Rx Novolog Flexpen (Insulin Aspart) 100 Unit/1 Ml Insuln.pen 10 Units SQ TIDAC 05/27/15 Rx Hydralazine Hcl 50 Mg Tablet 100 Mg PO Q8HRS 05/27/15 Rx Furosemide 40 Mg Tablet 40 Mg PO DAILY 05/27/15 Rx Atorvastatin Calcium 40 Mg Tablet 1 Tab PO DAILY 05/23/15 Reported Omeprazole 40 Mg Capsule.dr 1 Cap PO DAILY 05/23/15 Reported Ventolin Hfa Inhaler (Albuterol Sulfate) 18 Gm Hfa.aer.ad 2 Puff IH PRN Q4-6HRS 05/23/15 Reported Glipizide 10 Mg Tablet 1 Tab PO BIDAC 06/10/14 Reported Clonidine Hcl 0.2 Mg Tablet 1 Tab PO BID 06/10/14 Reported Coreg (Carvedilol) 25 Mg Tablet 1 Tab PO [id number] 06/10/14 Reported Impression . 1. Jritu-db-qbozaow hypoxemic respiratory failure. 2. Acute systolic heart failure. 3. Uncontrolled hypertension. 4. Drug use. 5. Obstructive sleep apnea. 6. Morbid obesity. Plan . RESP STATUS COMPENSATED TRANSFER TO FLOOR D/C IN AM PT INFORMED OF IMPORTANCE OF D/C ALL ILLICIT DRUGS DIMPLE ACOSTA MD Feb 22, 2017 13:54
[2017-02-22] MEDS: predniSONE 20 MG TABLET PO SCH (14:44)
[2017-02-22] MEDS: ATORVASTATIN CALCIUM 40 MG TABLET. PO SCH (21:12)
[2017-02-22] MEDS: FERROUS SULFATE 325 MG TABLET. PO SCH (21:12)
[2017-02-22] MEDS: INSULIN DETEMIR 300 UNITS/3 ML INSULN.PEN. SQ SCH (21:22)
[2017-02-23] VITALS (7 sets, daily range): BP systolic 116–141; BP diastolic 35–68
[2017-02-23] MEDS: oxyCODONE/APAP 10/325 1 TAB TABLET PO PRN ×2 (03:32→09:48)
[2017-02-23 04:29] LABS: BASO # 0.1 x10^3/uL (0.0-0.2); BASO % 1 % (0-3); EOS % 4 % (0-3); HEMATOCRIT 27.9 % (36.0-47.0); LYMPH # 1.8 x10^3/uL (1.0-4.8); LYMPH % 27 % (24-48); MEAN CORPUSCULAR HEMOGLOBIN 27 pg (25-35); MEAN CORPUSCULAR HGB CONC 32 g/dL (31-37); MEAN CORPUSCULAR VOLUME 82 fL (79-100); MONO % 13 % (0-9); NEUT % 55 % (31-73); PLATELET COUNT 345 x10^3/uL (140-400); RED BLOOD COUNT 3.39 x10^6/uL (3.50-5.40); RED CELL DISTRIBUTION WIDTH 19.2 % (11.5-14.5); WHITE BLOOD COUNT 6.6 x10^3/uL (4.0-11.0)
[2017-02-23 04:47] LABS: CALCIUM 8.1 mg/dL (8.5-10.1); CREATININE 2.9 mg/dL (0.6-1.0); GFR 20.1; MAGNESIUM 2.2 mg/dL (1.8-2.4)
[2017-02-23] MEDS: HEPARIN PF for SUB-Q USE 5,000 UNIT/0.5 ML VIAL. SQ SCH ×3 (05:37→20:17)
[2017-02-23] MEDS: IPRATRPIUM/ALBUTEROL 0.5/2.5MG 3 ML NEBU. NEB SCH ×4 (07:45→19:51)
[2017-02-23] MEDS: INSULIN ASPART 300 UNITS/3 ML INSULN.PEN SQ SCH ×6 (08:00→17:35)
[2017-02-23] MEDS: PANTOPRAZOLE 40 MG TABLET.DR. PO SCH (08:12)
[2017-02-23] MEDS: CARVEDILOL 12.5 MG TABLET. PO SCH ×2 (08:19→17:28)
[2017-02-23] MEDS: cloNIDine HCL 0.2 MG TABLET PO SCH ×2 (08:21→20:05)
[2017-02-23] MEDS: predniSONE 20 MG TABLET PO SCH (08:21)
[2017-02-23] MEDS: amLODIPine BESYLATE 10 MG TABLET PO SCH (08:51)
--- NOTE | 2017-02-23 12:03 | PDOC ---
PROGRESS NOTES Chief Complaint Chief Complaint Acute on chronic hypoxic resp failure ASSESSMENT AND PLAN: 1. COPD exacerbation: improved. on steroids, nebs. BiPAP only PRN at night 2. Diastolic CHF exacerbation: improved. previouslty on lasix, stopped 2/2 MARY 3. MARY on CKD: creat stable, but much above previous baseline. cont cautious IVF for now, monitor closely 4. Troponin leak: most likely cocaine induced ischemia; resolved 5. HTN: currently well controlled on home regimen 6. DM2: currently well controlled on levemir and ISS. 7. Leukocytosis: resolved 8. Anemia: mild, normocytic. 2/2 chronic inflammation. daily PO iron (if she was compliant...) 9. Tobaccoism 10. Morbid obesity 11. Mild protein malnutrition 12. Abuse with cocaine 13. Noncompliance 14. Prophylaxis: PPI, heparin History of Present Illness History of Present Illness feels good, save for sniffles, cough (nonprod) Vitals Vitals Vital Signs Date Time Temp Pulse Resp B/P (MAP) Pulse Ox O2 Delivery O2 Flow Rate FiO2 02/23/17 11:00 97.7 64 20 120/54 (76) 98 Room Air 97.7 02/23/17 09:17 2.0 Physical Exam General: Alert, Oriented X3, Cooperative, No acute distress Heart: Regular rate Lungs: Clear Abdomen: Normal bowel sounds, Soft Extremities: No edema Skin: No rashes Labs LABS Laboratory Tests Test 02/22/17 12:22 02/22/17 16:30 02/22/17 16:50 02/22/17 18:10 Glucose (Fingerstick) 173 mg/dL (70-99) 51 mg/dL (70-99) 52 mg/dL (70-99) 109 mg/dL (70-99) Test 02/22/17 21:19 02/23/17 03:20 02/23/17 08:05 02/23/17 09:54 Glucose (Fingerstick) 206 mg/dL (70-99) 96 mg/dL (70-99) 105 mg/dL (70-99) White Blood Count 6.6 x10^3/uL (4.0-11.0) Red Blood Count 3.39 x10^6/uL (3.50-5.40) Hemoglobin 9.0 g/dL (12.0-15.5) Hematocrit 27.9 % (36.0-47.0) Mean Corpuscular Volume 82 fL (79-100) Mean Corpuscular Hemoglobin 27 pg (25-35) Mean Corpuscular Hemoglobin Concent 32 g/dL (31-37) Red Cell Distribution Width 19.2 % (11.5-14.5) Platelet Count 345 x10^3/uL (140-400) Neutrophils (%) (Auto) 55 % (31-73) Lymphocytes (%) (Auto) 27 % (24-48) Monocytes (%) (Auto) 13 % (0-9) Eosinophils (%) (Auto) 4 % (0-3) Basophils (%) (Auto) 1 % (0-3) Neutrophils # (Auto) 3.7 x10^3uL (1.8-7.7) Lymphocytes # (Auto) 1.8 x10^3/uL (1.0-4.8) Monocytes # (Auto) 0.8 x10^3/uL (0.0-1.1) Eosinophils # (Auto) 0.3 x10^3/uL (0.0-0.7) Basophils # (Auto) 0.1 x10^3/uL (0.0-0.2) Sodium Level 134 mmol/L (136-145) Potassium Level 4.0 mmol/L (3.5-5.1) Chloride Level 98 mmol/L (98-107) Carbon Dioxide Level 31 mmol/L (21-32) Anion Gap 5 (6-14) Blood Urea Nitrogen 50 mg/dL (7-20) Creatinine 2.9 mg/dL (0.6-1.0) Estimated GFR (Cockcroft-Gault) 20.1 Glucose Level 240 mg/dL (70-99) Calcium Level 8.1 mg/dL (8.5-10.1) Magnesium Level 2.2 mg/dL (1.8-2.4) CIARAN CARBALLO MD Feb 23, 2017 12:03
[2017-02-23] MEDS: DICLOFENAC SODIUM 1% TOPICAL GEL 100GM TUBE. TP SCH ×2 (12:06→20:08)
--- NOTE | 2017-02-23 12:19 | PDOC ---
PULMONARY PROGRESS NOTES Subjective PT FEELS BETTER Vitals Vital Signs Date Time Temp Pulse Resp B/P (MAP) Pulse Ox O2 Delivery O2 Flow Rate FiO2 02/23/17 11:00 97.7 64 20 120/54 (76) 98 Room Air 97.7 02/23/17 09:17 2.0 General: Alert, No acute distress HEENT: Other Lungs: Clear Cardiovascular: S1, S2 Abdomen: Soft, Non-tender Neuro Exam: Alert Extremities: No Edema Skin: Warm Labs Laboratory Tests Test 02/21/17 12:45 02/21/17 17:52 02/21/17 20:59 02/22/17 04:05 Glucose (Fingerstick) 134 mg/dL (70-99) 138 mg/dL (70-99) 99 mg/dL (70-99) White Blood Count 9.9 x10^3/uL (4.0-11.0) Red Blood Count 3.40 x10^6/uL (3.50-5.40) Hemoglobin 9.1 g/dL (12.0-15.5) Hematocrit 28.0 % (36.0-47.0) Mean Corpuscular Volume 82 fL (79-100) Mean Corpuscular Hemoglobin 27 pg (25-35) Mean Corpuscular Hemoglobin Concent 33 g/dL (31-37) Red Cell Distribution Width 19.8 % (11.5-14.5) Platelet Count 369 x10^3/uL (140-400) Neutrophils (%) (Auto) 73 % (31-73) Lymphocytes (%) (Auto) 16 % (24-48) Monocytes (%) (Auto) 10 % (0-9) Eosinophils (%) (Auto) 1 % (0-3) Basophils (%) (Auto) 1 % (0-3) Neutrophils # (Auto) 7.2 x10^3uL (1.8-7.7) Lymphocytes # (Auto) 1.6 x10^3/uL (1.0-4.8) Monocytes # (Auto) 1.0 x10^3/uL (0.0-1.1) Eosinophils # (Auto) 0.1 x10^3/uL (0.0-0.7) Basophils # (Auto) 0.1 x10^3/uL (0.0-0.2) Sodium Level 139 mmol/L (136-145) Potassium Level 3.5 mmol/L (3.5-5.1) Chloride Level 101 mmol/L (98-107) Carbon Dioxide Level 33 mmol/L (21-32) Anion Gap 5 (6-14) Blood Urea Nitrogen 46 mg/dL (7-20) Creatinine 2.7 mg/dL (0.6-1.0) Estimated GFR (Cockcroft-Gault) 21.8 Glucose Level 42 mg/dL (70-99) Calcium Level 8.7 mg/dL (8.5-10.1) Test 02/22/17 07:23 02/22/17 07:35 02/22/17 07:53 02/22/17 08:03 Glucose (Fingerstick) 31 mg/dL (70-99) 33 mg/dL (70-99) 68 mg/dL (70-99) 78 mg/dL (70-99) Test 02/22/17 09:10 02/22/17 12:22 02/22/17 16:30 02/22/17 16:50 Glucose (Fingerstick) 131 mg/dL (70-99) 173 mg/dL (70-99) 51 mg/dL (70-99) 52 mg/dL (70-99) Test 02/22/17 18:10 02/22/17 21:19 02/23/17 03:20 02/23/17 08:05 Glucose (Fingerstick) 109 mg/dL (70-99) 206 mg/dL (70-99) 96 mg/dL (70-99) White Blood Count 6.6 x10^3/uL (4.0-11.0) Red Blood Count 3.39 x10^6/uL (3.50-5.40) Hemoglobin 9.0 g/dL (12.0-15.5) Hematocrit 27.9 % (36.0-47.0) Mean Corpuscular Volume 82 fL (79-100) Mean Corpuscular Hemoglobin 27 pg (25-35) Mean Corpuscular Hemoglobin Concent 32 g/dL (31-37) Red Cell Distribution Width 19.2 % (11.5-14.5) Platelet Count 345 x10^3/uL (140-400) Neutrophils (%) (Auto) 55 % (31-73) Lymphocytes (%) (Auto) 27 % (24-48) Monocytes (%) (Auto) 13 % (0-9) Eosinophils (%) (Auto) 4 % (0-3) Basophils (%) (Auto) 1 % (0-3) Neutrophils # (Auto) 3.7 x10^3uL (1.8-7.7) Lymphocytes # (Auto) 1.8 x10^3/uL (1.0-4.8) Monocytes # (Auto) 0.8 x10^3/uL (0.0-1.1) Eosinophils # (Auto) 0.3 x10^3/uL (0.0-0.7) Basophils # (Auto) 0.1 x10^3/uL (0.0-0.2) Sodium Level 134 mmol/L (136-145) Potassium Level 4.0 mmol/L (3.5-5.1) Chloride Level 98 mmol/L (98-107) Carbon Dioxide Level 31 mmol/L (21-32) Anion Gap 5 (6-14) Blood Urea Nitrogen 50 mg/dL (7-20) Creatinine 2.9 mg/dL (0.6-1.0) Estimated GFR (Cockcroft-Gault) 20.1 Glucose Level 240 mg/dL (70-99) Calcium Level 8.1 mg/dL (8.5-10.1) Magnesium Level 2.2 mg/dL (1.8-2.4) Test 02/23/17 09:54 02/23/17 12:00 Glucose (Fingerstick) 105 mg/dL (70-99) 45 mg/dL (70-99) Laboratory Tests Test 02/22/17 12:22 02/22/17 16:30 02/22/17 16:50 02/22/17 18:10 Glucose (Fingerstick) 173 mg/dL (70-99) 51 mg/dL (70-99) 52 mg/dL (70-99) 109 mg/dL (70-99) Test 02/22/17 21:19 02/23/17 03:20 02/23/17 08:05 02/23/17 09:54 Glucose (Fingerstick) 206 mg/dL (70-99) 96 mg/dL (70-99) 105 mg/dL (70-99) White Blood Count 6.6 x10^3/uL (4.0-11.0) Red Blood Count 3.39 x10^6/uL (3.50-5.40) Hemoglobin 9.0 g/dL (12.0-15.5) Hematocrit 27.9 % (36.0-47.0) Mean Corpuscular Volume 82 fL (79-100) Mean Corpuscular Hemoglobin 27 pg (25-35) Mean Corpuscular Hemoglobin Concent 32 g/dL (31-37) Red Cell Distribution Width 19.2 % (11.5-14.5) Platelet Count 345 x10^3/uL (140-400) Neutrophils (%) (Auto) 55 % (31-73) Lymphocytes (%) (Auto) 27 % (24-48) Monocytes (%) (Auto) 13 % (0-9) Eosinophils (%) (Auto) 4 % (0-3) Basophils (%) (Auto) 1 % (0-3) Neutrophils # (Auto) 3.7 x10^3uL (1.8-7.7) Lymphocytes # (Auto) 1.8 x10^3/uL (1.0-4.8) Monocytes # (Auto) 0.8 x10^3/uL (0.0-1.1) Eosinophils # (Auto) 0.3 x10^3/uL (0.0-0.7) Basophils # (Auto) 0.1 x10^3/uL (0.0-0.2) Sodium Level 134 mmol/L (136-145) Potassium Level 4.0 mmol/L (3.5-5.1) Chloride Level 98 mmol/L (98-107) Carbon Dioxide Level 31 mmol/L (21-32) Anion Gap 5 (6-14) Blood Urea Nitrogen 50 mg/dL (7-20) Creatinine 2.9 mg/dL (0.6-1.0) Estimated GFR (Cockcroft-Gault) 20.1 Glucose Level 240 mg/dL (70-99) Calcium Level 8.1 mg/dL (8.5-10.1) Magnesium Level 2.2 mg/dL (1.8-2.4) Test 02/23/17 12:00 Glucose (Fingerstick) 45 mg/dL (70-99) Medications Active Scripts Medications Dose Route/Sig Max Daily Dose Days Date Category Feosol (Ferrous Sulfate) 325 Mg Tablet 325 Mg PO QHS 12/15/16 Rx Voltaren (Diclofenac Sodium) 100 Gm Gel..gram. 1 Sohan TP BID 12/15/16 Rx Doxycycline Hyclate 100 Mg Tablet 100 Mg PO BID 12/04/16 Rx Percocet 10-325 Mg Tablet (Oxycodone/Acetaminophen) 1 Each Tablet 1 Tab PO Q4-6HRS 12/04/16 Rx Toujeo Solostar (Insulin Glargine,Hum.rec.anlog) 300 Unit/1 Ml Insuln.pen 36 Unit SQ HS 10/10/16 Reported Amlodipine Besylate 10 Mg Tablet 10 Mg PO DAILY 09/27/15 Rx Novolog Flexpen (Insulin Aspart) 100 Unit/1 Ml Insuln.pen 10 Units SQ TIDAC 05/27/15 Rx Hydralazine Hcl 50 Mg Tablet 100 Mg PO Q8HRS 05/27/15 Rx Furosemide 40 Mg Tablet 40 Mg PO DAILY 05/27/15 Rx Atorvastatin Calcium 40 Mg Tablet 1 Tab PO DAILY 05/23/15 Reported Omeprazole 40 Mg Capsule.dr Bahena Cap PO DAILY 05/23/15 Reported Ventolin Hfa Inhaler (Albuterol Sulfate) 18 Gm Hfa.aer.ad 2 Puff IH PRN Q4-6HRS 05/23/15 Reported Glipizide 10 Mg Tablet 1 Tab PO BIDAC 06/10/14 Reported Clonidine Hcl 0.2 Mg Tablet 1 Tab PO BID 06/10/14 Reported Coreg (Carvedilol) 25 Mg Tablet 1 Tab PO [id number] 06/10/14 Reported Impression . 1. Tkvck-np-ossaypb hypoxemic respiratory failure. 2. Acute systolic heart failure. 3. Uncontrolled hypertension. 4. Drug use. 5. Obstructive sleep apnea. 6. Morbid obesity. 7. Acute/chronic kidney dz Plan . RESP STATUS COMPENSATED CREATINE ELEVATED SPOKE WITH DR Ayala PT INFORMED OF IMPORTANCE OF D/C ALL ILLICIT DRUGS DIMPLE ACOSTA MD Feb 23, 2017 12:19
[2017-02-23] MEDS ORDERED: HEPARIN PF for SUB-Q USE 5,000 UNIT/0.5 ML VIAL. SQ SCH (14:00)
[2017-02-23] MEDS: oxyCODONE/APAP 5/325 1 TAB TABLET PO PRN ×2 (15:04→20:04)
[2017-02-23] MEDS: ASA/APAP/CAFFEINE 250/250/65MG TABLET. PO PRN (15:11)
[2017-02-23] MEDS ORDERED: TEMAZEPAM 15 MG CAPSULE PO PRN (19:45)
[2017-02-23] MEDS: FERROUS SULFATE 325 MG TABLET. PO SCH (20:03)
[2017-02-23] MEDS: ATORVASTATIN CALCIUM 40 MG TABLET. PO SCH (20:04)
[2017-02-23] MEDS: traMADol 50 MG TABLET PO PRN (20:04)
[2017-02-23] MEDS: INSULIN DETEMIR 300 UNITS/3 ML INSULN.PEN. SQ SCH (21:29)
[2017-02-24] MEDS: traMADol 50 MG TABLET PO PRN ×2 (02:19→11:10)
[2017-02-24] MEDS: oxyCODONE/APAP 5/325 1 TAB TABLET PO PRN ×2 (02:19→08:30)
[2017-02-24 03:00] VITALS: BP 133/56
[2017-02-24 05:49] LABS: BASO % 0 % (0-3); EOS % 0 % (0-3); HEMATOCRIT 25.8 % (36.0-47.0); HEMOGLOBIN 8.4 g/dL (12.0-15.5); LYMPH # 0.8 x10^3/uL (1.0-4.8); LYMPH % 10 % (24-48); MEAN CORPUSCULAR HEMOGLOBIN 27 pg (25-35); MEAN CORPUSCULAR HGB CONC 33 g/dL (31-37); MEAN CORPUSCULAR VOLUME 82 fL (79-100); MONO % 9 % (0-9); NEUT % 81 % (31-73); PLATELET COUNT 326 x10^3/uL (140-400); RED BLOOD COUNT 3.14 x10^6/uL (3.50-5.40); RED CELL DISTRIBUTION WIDTH 19.1 % (11.5-14.5); WHITE BLOOD COUNT 8.1 x10^3/uL (4.0-11.0)
[2017-02-24 06:10] LABS: ALBUMIN 2.5 g/dL (3.4-5.0); ALBUMIN/GLOBULIN RATIO 0.6 (1.0-1.7); CALCIUM 8.3 mg/dL (8.5-10.1); CREATININE 2.5 mg/dL (0.6-1.0); GFR 23.9; POTASSIUM 4.4 mmol/L (3.5-5.1); TOTAL BILIRUBIN 0.1 mg/dL (0.2-1.0); TOTAL PROTEIN 6.4 g/dL (6.4-8.2)
[2017-02-24 06:22] VITALS: BP 114/41
[2017-02-24] MEDS: HEPARIN PF for SUB-Q USE 5,000 UNIT/0.5 ML VIAL. SQ SCH (06:33)
[2017-02-24] MEDS: IPRATRPIUM/ALBUTEROL 0.5/2.5MG 3 ML NEBU. NEB SCH ×2 (07:13→11:25)
[2017-02-24 08:23] VITALS: BP 153/61
[2017-02-24] MEDS: PANTOPRAZOLE 40 MG TABLET.DR. PO SCH (08:28)
[2017-02-24] MEDS: CARVEDILOL 12.5 MG TABLET. PO SCH (08:29)
[2017-02-24] MEDS: predniSONE 20 MG TABLET PO SCH (08:29)
[2017-02-24] MEDS: cloNIDine HCL 0.2 MG TABLET PO SCH (08:29)
[2017-02-24] MEDS: amLODIPine BESYLATE 10 MG TABLET PO SCH (08:30)
[2017-02-24] MEDS: INSULIN ASPART 300 UNITS/3 ML INSULN.PEN SQ SCH ×4 (08:38→12:13)
[2017-02-24] MEDS: DICLOFENAC SODIUM 1% TOPICAL GEL 100GM TUBE. TP SCH (08:40)
[2017-02-24 11:00] VITALS: BP 151/61
[2017-02-24] MEDS: ASA/APAP/CAFFEINE 250/250/65MG TABLET. PO PRN (11:11)
[2017-02-24] MEDS ORDERED: AMLO10TA2 PO (12:49)
[2017-02-24] MEDS ORDERED: HYDR-2869 PO (12:49)
[2017-02-24] MEDS ORDERED: CARV25TA PO (12:49)
[2017-02-24] MEDS ORDERED: OXYC-328 PO (12:49)
[2017-02-24] MEDS ORDERED: ATOR40TA59 PO (12:49)
[2017-02-24] MEDS ORDERED: CLON0.2T PO (12:49)
[2017-02-24] MEDS ORDERED: FURO40TA4 PO (12:49)
[2017-02-24 14:13] VITALS: BP 152/78
--- NOTE | 2017-02-25 16:18 | DS ---
DATE OF DISCHARGE: 02/24/2017 CHIEF COMPLAINT: COPD exacerbation. HOSPITAL COURSE: The patient is a 61-year-old woman who presented to the Emergency Room with severe shortness of breath and chest pain. She was found with both COPD as well as CHF exacerbation, which was attributed to cocaine-induced ischemia. She was initially treated in the ICU with BiPAP, received steroids, nebulizers with improvement of her symptoms. She had a mild troponin leak once again attributed to cocaine-induced cardiomyopathy. All other medical issues including diabetes were well controlled. She was counseled about not using illicit drugs or smoke. She was discharged with home health. PHYSICAL EXAMINATION: VITAL SIGNS: blood pressure of 120/54, heart rate of 64, respiratory rate of 20. afebrile. GENERAL: This is a morbidly obese 61-year-old woman, alert and oriented, no acute distress. LUNGS: Clear. HEART: regular rate and rhythm. ABDOMEN: Obese, positive bowel sounds. EXTREMITIES: 1+ edema. DISCHARGE DATE: 02/24/2017. 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 DISCHARGE DISPOSITION: To home with home health. DISCHARGE CONDITION: Improved. DISCHARGE MEDICATIONS: Please refer to MAR. DISCHARGE INSTRUCTIONS: The patient will follow up with PCP in 1-2 weeks. CIARAN CARBALLO MD [address]: UR/nts JOB#: [id number] / [id number] DARREL
== END 2017-02-24 15:00 | disposition home health service (06) | DRG 917 ==
LOC: ER 07:21 → 1 WEST ICU 09:00 → 5 SOUTH 02-22 15:45
PROVIDERS: ADMIT Internal Medicine Hematology & Oncology; ATTEND Internal Medicine Hematology & Oncology
PROC: 5A09357 Assistance with Respiratory Ventilation, Less than 24 Consecutive Hours, Continuous Positive Airway Pressure (ICD-10-PCS; principal; 2017-02-20)
DX: T40.5X1A Poisoning by cocaine, accidental (unintentional), initial encounter (principal); I50.43 Acute on chronic combined systolic (congestive) and diastolic (congestive) heart failure; J96.21 Acute and chronic respiratory failure with hypoxia; N17.0 Acute kidney failure with tubular necrosis; E44.1 Mild protein-calorie malnutrition; I43 Cardiomyopathy in diseases classified elsewhere; E11.22 Type 2 diabetes mellitus with diabetic chronic kidney disease; I13.0 Hypertensive heart and chronic kidney disease with heart failure and stage 1 through stage 4 chronic kidney disease, or unspecified chronic kidney disease; Z68.43 Body mass index [BMI] 50.0-59.9, adult; J44.1 Chronic obstructive pulmonary disease with (acute) exacerbation; E66.01 Morbid (severe) obesity due to excess calories; I16.0 Hypertensive urgency; G47.33 Obstructive sleep apnea (adult) (pediatric); D63.8 Anemia in other chronic diseases classified elsewhere; N18.3 Chronic kidney disease, stage 3 (moderate); E11.649 Type 2 diabetes mellitus with hypoglycemia without coma; D72.829 Elevated white blood cell count, unspecified; E78.5 Hyperlipidemia, unspecified; F17.210 Nicotine dependence, cigarettes, uncomplicated; Z23 Encounter for immunization; Z79.4 Long term (current) use of insulin; Z99.81 Dependence on supplemental oxygen; Z91.14 Patient's other noncompliance with medication regimen; Z90.89 Acquired absence of other organs; Z98.51 Tubal ligation status; F14.188 Cocaine abuse with other cocaine-induced disorder
CPT/HCPCS: 36415; 36600; 71010; 80048; 80053; 80076; 80307; 81001; 82553; 82805; 82962; 83690; 83735; 83880; 84443; 84484; 85007; 85025; 85610; 87086; 87641; 90686; 93005; 94250; 94640; 94660; 94760; 96374; 96375; J1815; J1940; J2930; J3475; J7030; J7512; J7620; 97116; 97530; 99291-25; G0479